=== PATIENT | male | born 1940 | race Caucasian/White ===

== ENCOUNTER 2020-02-06 06:59 | Emergency (ER) | payer MEDICARE, SELFPAY ==
--- NOTE | 2020-02-06 | XR_ITS ---
EXAMINATION: XR FOOT, RIGHT CLINICAL INFORMATION: Pain. Rule out fracture. COMPARISON: None TECHNIQUE: AP, lateral, and oblique views of the right foot. FINDINGS: No fracture or other acute bony abnormality is seen. Evaluation of the toes is somewhat limited because of hammertoe deformities. There is diffuse osteopenia. Severe degenerative changes are present at the first and second metatarsal phalangeal joints. IMPRESSION: No acute abnormality.
[2020-02-06 07:32] VITALS: BP 129/62; PULSE 90; RESP 27; TEMP 36.9; O2SAT 98; BMI 19.6
--- NOTE | 2020-02-06 07:49 | ECG_ITS ---
Test Reason : CHEST PAIN Blood Pressure : / mmHG Vent. Rate : 084 BPM Atrial Rate : 087 BPM P-R Int : 000 ms QRS Dur : 154 ms QT Int : 406 ms P-R-T Axes : 000 267 045 degrees QTc Int : 479 ms Atrial fibrillation Right bundle branch block Possible Lateral infarct , age undetermined Abnormal ECG When compared with ECG of 20-NOV-2019 21:23, Borderline criteria for Lateral infarct are now Present Referred By: Denisse Quinn Electronically Signed By:JOSE MIGUEL PARSONS
--- NOTE | 2020-02-06 07:49 | XR_ITS ---
EXAMINATION: CR CHEST CLINICAL INFORMATION: Shortness of breath. COMPARISON: Multiple prior chest x-rays, most recent of which is dated 12/30/2019. TECHNIQUE: AP portable upright view of the chest was obtained. FINDINGS: Multiple EKG leads overlie the chest. The cardiomediastinal silhouette is within normal limits in size. Calcification of the aortic arch is seen. Again noted is right apical pleural thickening with associated chain links sutures and jesus, consistent with prior partial right upper lobectomy. Lungs are hyperinflated with slight thickening of the airways seen, consistent with obstructive lung disease. No acute superimposed focal pulmonary process is seen. There is partial inclusion of sclerotic density in the proximal left humeral head, possibly due to an old infarct or benign bone lesion, such as an enchondroma. Diffuse osteopenia is seen. IMPRESSION: Obstructive lung disease, chronic right apical postsurgical changes. No acute superimposed focal process.
--- NOTE | 2020-02-06 07:54 | ED.CHESTPAIN ---
HPI - Chest Pain General Chief Complaint: Chest Pain Stated Complaint: cant walk chest pain Time Seen by Provider: 02/06/20 07:44 History of Present Illness HPI narrative: right foot pain for the past 2 Days, patient declined any trauma or injury to the right foot, patient had a history of right foot pain due to gout in the past and was similar to that pain. Related Data Previous Rx's Medication Instructions Recorded prednisone 20 mg PO BID #10 tab 02/06/20 Allergies Allergy/AdvReac Type Severity Reaction Status Date / Time No Known Allergies Allergy Unknown UNKNOWN Unverified 01/20/20 15:06 [NO KNOWN ALLERGIES] Review of Systems Review of Systems: Yes all other systems are reviewed and are negative Constitutional: Constitutional: Reports as per HPI and Reports malaise Eyes: Eyes: Reports as per HPI and Reports no additional eye complaints ENT: Reports Normal hearing present Cardiovascular: Cardiovascular: Reports chest pain and Reports dyspnea Respiratory: Respiratory: Reports dyspnea Gastrointestinal: Gastrointestinal: Reports no additional gastrointestinal complaints Genitourinary: Genitourinary: Reports no additional male genitourinary complaints Musculoskeletal: Musculoskeletal: Reports other Comments: Right foot pain for the past 2 days similar to when he had gout attack in the past. Neurologic: Reports system reviewed and no additional complaints, except as documented and Reports Normal hearing present [facility] Past Medical History Medical History (Updated 02/06/20 @ 15:43 by Denisse Quinn MD) COPD (chronic obstructive pulmonary disease) Hypertension Lung cancer Surgical History (Updated 02/06/20 @ 07:36 by Rajesh Titus) History of lung surgery Social History Social History Alcohol intake: never Smoking Status: Current every day smoker Smoked in Last 30 Days: Yes Use of substances other than those prescribed or required for medical reasons: No Advance Directives: No Advance Directives Information Provided: No Physical Exam Vital Signs and I&O and Narrative: Vital Signs and I&O: Vital Signs Temp 98.5 F 02/06/20 07:32 Pulse 80 02/06/20 10:20 Resp 18 02/06/20 10:20 BP 101/46 L 02/06/20 10:20 Pulse Ox 95 02/06/20 10:20 Intake & Output 02/05/20 02/06/20 02/06/20 18:59 06:59 18:59 Weight 69.539 kg Body Mass Index 19.6 Const: General: cooperative, healthy appearing, alert, awake and Physically active Orientation/consciousness: oriented to person, oriented to place, oriented to time and patient oriented x3 HENMT: Head: Yes normal to inspection and Yes No palpable skull fracture present Eyes: General: appearance normal, both eyes and all related structures Neck: Neck: Yes normal visual inspection Chest: Chest palpation & inspection: normal inspection of the chest and normal palpation of entire chest wall Resp: Effort & Inspection: normal respiratory effort and able to speak in complete sentences Auscultation: clear to auscultation bilaterally Cardio: Rate: regular rate Rhythm: abnormal rhythm irregularly irregular GI: Inspection: Yes normal to inspection : General: Yes no CVA tenderness Back/Spine/Pelvis: Back: no CVA tenderness Skin: General skin exam: no rashes or lesions noted Neuro: General: oriented to person, oriented to place, oriented to time and patient oriented x3 Cranial nerves: Yes CN's II-XII intact bilaterally and Yes Normal hearing present Cognition (Neuro): normal cognition Extrem: General: Yes normal to inspection Right upper extremity: normal to inspection Left upper extremity: normal to inspection Right lower extremity: normal to inspection, full ROM and foot Details: normal capillary refill, normal to inspection, tenderness Location: of the dorsal foot, of the mid foot and of the base of the 5th metatarsal and toes with normal ROM Course Course Hospital Course: 79-year-old male presented with right foot pain for the past 2 days, patient had a gout attack in the past and the pain is similar to the gout arthritis, x-ray of the foot is unremarkable. Patient also is less concerning about chest pain that is mostly mid chest, with no radiation, more less constant, it is not exertional, no associated symptoms with that, patient has unremarkable EKG, and also patient had a negative troponin x2 with 3 hours apart (chest pain started last night greater than 10 hours when patient was 1st seen). Reevaluation(s) Reevaluation #1: Spoke with the daughter over the phone who is concerned that the patient lives home alone with difficulty ambulating and concern to send the patient back home, patient has unremarkable workup in the emergency department, patient was offered to stay in the emergency department for social service liaison evaluation and a rehab placement, but patient declined that and wanted to go home, given the fact that patient do not have a typical exam for gout but patient's symptoms were similar to a previous gout attack that the patient had as discussed with the patient will try the patient on 4 days of prednisone, and if he does not feel improvement he come back to the emergency room for further evaluation and possible appropriate placement for the patient. MDM - Chest Pain Lab Data Result diagrams: 02/06/20 08:22 02/06/20 08:22 Labs: Lab Results 02/06/20 02/06/20 02/06/20 Range/Units 08:21 08:21 08:21 WBC (4.8-10.8) X10*3/uL RBC (4.60-5.80) X10*6/uL Hgb (14.0-18.0) g/dl Hct (42-52) % MCV (80-98) fL MCH (27.0-33.0) pg MCHC (31.0-36.0) g/dl RDW (11.0-16.0) % Plt Count (160-400) X10*3/uL MPV (9.4-12.4) fL Immature Gran % (Auto) (0.0-0.4) % Neut % (Auto) (45-73) % Lymph % (Auto) (20-40) % Villalba % (Auto) (2-11) % Eos % (Auto) (0-4) % Baso % (Auto) (0-2) % Neut # (Auto) (2.0-8.3) X10*3/uL Lymph # (Auto) (1.2-4.9) X10*3/uL Villalba # (Auto) (0.1-1.2) X10*3/uL Eos # (Auto) (0.0-0.4) X10*3/uL Baso # (Auto) (0.0-0.2) X10*3/uL Abs Immat Gran (auto) (0.00-0.03) X10*3/uL Absolute Nucleated RBC (0.0-0.012) X10*3/uL Nucleated RBC % (auto) (0.0-0.2) /100WBC PT 46.7 H (10.8-13.0) SEC INR 3.9 H (0.9-1.1) APTT 55.4 H (24.1-38.0) SEC Hold Blue Top Sodium (135-145) mmol/L Potassium (3.3-5.1) mmol/l Chloride (96-108) mmol/L Carbon Dioxide (22-29) mmol/L Anion Gap (12-20) BUN (9-16) mg/dL Creatinine (0.5-1.4) mg/dL Estim Creat Clear Calc Estimated GFR Random Glucose (60-115) mg/dL Lactic Acid 0.7 (0.5-2.0) mmol/L Calcium (8.4-10.2) mg/dL Total Bilirubin 0.8 (0.0-1.0) mg/dL Troponin I High Sens (<3.5-35.0) ng/L Urine Color Urine Appearance Urine pH (5.0-8.0) Ur Specific Taylor (1.005-1.025) Urine Protein (NEG-TRACE) MG/DL Urine Glucose (UA) (NEG) MG/DL Urine Ketones (NEG) MG/DL Urine Blood (NEG) Urine Nitrite (NEG) Ur Leukocyte Esterase (NEG) Urine RBC (0) /HPF Urine WBC (0-4) /HPF 02/06/20 02/06/20 02/06/20 Range/Units 08:22 08:22 08:22 WBC (4.8-10.8) X10*3/uL RBC (4.60-5.80) X10*6/uL Hgb (14.0-18.0) g/dl Hct (42-52) % MCV (80-98) fL MCH (27.0-33.0) pg MCHC (31.0-36.0) g/dl RDW (11.0-16.0) % Plt Count (160-400) X10*3/uL MPV (9.4-12.4) fL Immature Gran % (Auto) (0.0-0.4) % Neut % (Auto) (45-73) % Lymph % (Auto) (20-40) % Villalba % (Auto) (2-11) % Eos % (Auto) (0-4) % Baso % (Auto) (0-2) % Neut # (Auto) (2.0-8.3) X10*3/uL Lymph # (Auto) (1.2-4.9) X10*3/uL Villalba # (Auto) (0.1-1.2) X10*3/uL Eos # (Auto) (0.0-0.4) X10*3/uL Baso # (Auto) (0.0-0.2) X10*3/uL Abs Immat Gran (auto) (0.00-0.03) X10*3/uL Absolute Nucleated RBC (0.0-0.012) X10*3/uL Nucleated RBC % (auto) (0.0-0.2) /100WBC PT (10.8-13.0) SEC INR (0.9-1.1) APTT (24.1-38.0) SEC Hold Blue Top SEE NOTE Sodium 144 (135-145) mmol/L Potassium 4.2 (3.3-5.1) mmol/l Chloride 101 (96-108) mmol/L Carbon Dioxide 35 H (22-29) mmol/L Anion Gap 12 (12-20) BUN 45 H (9-16) mg/dL Creatinine 1.16 (0.5-1.4) mg/dL Estim Creat Clear Calc 49.9 Estimated GFR > 60 Random Glucose 131 H (60-115) mg/dL Lactic Acid (0.5-2.0) mmol/L Calcium 9.2 (8.4-10.2) mg/dL Total Bilirubin (0.0-1.0) mg/dL Troponin I High Sens 14.9 (<3.5-35.0) ng/L Urine Color Urine Appearance Urine pH (5.0-8.0) Ur Specific Taylor (1.005-1.025) Urine Protein (NEG-TRACE) MG/DL Urine Glucose (UA) (NEG) MG/DL Urine Ketones (NEG) MG/DL Urine Blood (NEG) Urine Nitrite (NEG) Ur Leukocyte Esterase (NEG) Urine RBC (0) /HPF Urine WBC (0-4) /HPF 02/06/20 02/06/20 02/06/20 Range/Units 08:22 08:23 11:28 WBC 6.8 (4.8-10.8) X10*3/uL RBC 4.27 L (4.60-5.80) X10*6/uL Hgb 13.6 L (14.0-18.0) g/dl Hct 41.9 L (42-52) % MCV 98.1 H (80-98) fL MCH 31.9 (27.0-33.0) pg MCHC 32.5 (31.0-36.0) g/dl RDW 16.8 H (11.0-16.0) % Plt Count 154 L (160-400) X10*3/uL MPV 11.4 (9.4-12.4) fL Immature Gran % (Auto) 0.3 (0.0-0.4) % Neut % (Auto) 62.9 (45-73) % Lymph % (Auto) 20.6 (20-40) % Villalba % (Auto) 12.7 H (2-11) % Eos % (Auto) 2.8 (0-4) % Baso % (Auto) 0.7 (0-2) % Neut # (Auto) 4.3 (2.0-8.3) X10*3/uL Lymph # (Auto) 1.4 (1.2-4.9) X10*3/uL Villalba # (Auto) 0.9 (0.1-1.2) X10*3/uL Eos # (Auto) 0.2 (0.0-0.4) X10*3/uL Baso # (Auto) 0.1 (0.0-0.2) X10*3/uL Abs Immat Gran (auto) 0.02 (0.00-0.03) X10*3/uL Absolute Nucleated RBC 0.000 (0.0-0.012) X10*3/uL Nucleated RBC % (auto) 0.0 (0.0-0.2) /100WBC PT (10.8-13.0) SEC INR (0.9-1.1) APTT (24.1-38.0) SEC Hold Blue Top Sodium (135-145) mmol/L Potassium (3.3-5.1) mmol/l Chloride (96-108) mmol/L Carbon Dioxide (22-29) mmol/L Anion Gap (12-20) BUN (9-16) mg/dL Creatinine (0.5-1.4) mg/dL Estim Creat Clear Calc Estimated GFR Random Glucose (60-115) mg/dL Lactic Acid (0.5-2.0) mmol/L Calcium (8.4-10.2) mg/dL Total Bilirubin (0.0-1.0) mg/dL Troponin I High Sens 11.7 (<3.5-35.0) ng/L Urine Color YELLOW Urine Appearance CLEAR Urine pH 6.0 (5.0-8.0) Ur Specific Taylor 1.015 (1.005-1.025) Urine Protein NEG (NEG-TRACE) MG/DL Urine Glucose (UA) NEG (NEG) MG/DL Urine Ketones NEG (NEG) MG/DL Urine Blood TRACE (NEG) Urine Nitrite NEG (NEG) Ur Leukocyte Esterase NEG (NEG) Urine RBC 0-2 (0) /HPF Urine WBC 0 (0-4) /HPF Discharge Plan Discharge Clinical Impression: Atypical chest pain Acute foot pain Qualifiers: Laterality: right Qualified Code(s): M79.671 - Pain in right foot Patient Disposition: Home, Self-Care Instructions: Gout (ED), Noncardiac Chest Pain (ED) Prescriptions: New prednisone 20 mg tablet 20 mg PO BID Qty: 10 RF: 0 Referrals: Ben Durham MD [Primary Care Provider] - 2 days
[2020-02-06 08:32] LABS: MANUAL DIFF FLAG NO
[2020-02-06 08:35] LABS: Basophils Absolute Auto 0.1 X10*3/uL (0.0-0.2); Basophils Percent Auto 0.7 % (0-2); Eosinophils Absolute Auto 0.2 X10*3/uL (0.0-0.4); Eosinophils Percent Auto 2.8 % (0-4); Hematocrit 41.9 % (42-52); Hemoglobin 13.6 g/dl (14.0-18.0); Imm Gran Abs Auto 0.02 X10*3/uL (0.00-0.03); Imm Gran Pct Auto 0.3 % (0.0-0.4); Lymphocytes Absolute Auto 1.4 X10*3/uL (1.2-4.9); Lymphocytes Percent Auto 20.6 % (20-40); Mean Corpuscular HGB Conc 32.5 g/dl (31.0-36.0); Mean Corpuscular Hemoglobin 31.9 pg (27.0-33.0); Mean Corpuscular Volume 98.1 fL (80-98); Mean Platelet Volume 11.4 fL (9.4-12.4); Monocytes Absolute Auto 0.9 X10*3/uL (0.1-1.2); Monocytes Percent Auto 12.7 % (2-11); Neutrophils Absolute Auto 4.3 X10*3/uL (2.0-8.3); Neutrophils Percent Auto 62.9 % (45-73); Platelet Count 154 X10*3/uL (160-400); Red Blood Count 4.27 X10*6/uL (4.60-5.80); Red Cell Distribution Width 16.8 % (11.0-16.0); White Blood Count 6.8 X10*3/uL (4.8-10.8)
[2020-02-06 08:43] LABS: Glucose Urine UA NEG (NEG); Leukocyte Esterase Urine NEG (NEG); Nitrite Urine NEG (NEG); Specific Gravity - Urine 1.015 (1.005-1.025); Urine Blood TRACE (NEG); Urine Ketones NEG (NEG); Urine Protein NEG (NEG-TRACE)
[2020-02-06 08:46] LABS: Appearance Urine CLEAR; Color Urine YELLOW
[2020-02-06 08:53] LABS: Lactic Acid 0.7 mmol/L (0.5-2.0)
[2020-02-06 08:55] LABS: Prothrombin Time 46.7 SEC (10.8-13.0)
[2020-02-06 08:57] LABS: Partial Thromboplastin Time 55.4 SEC (24.1-38.0)
[2020-02-06 09:00] LABS: Troponin-I High Sensitivity 14.9 ng/L (<3.5-35.0)
[2020-02-06 09:01] LABS: RBC Urine 0-2 /HPF (0); WBC Urine 0 /HPF (0-4)
[2020-02-06 09:03] LABS: Bilirubin Total 0.8 mg/dL (0.0-1.0); INTERNATIONAL NORM RATIO 3.9 (0.9-1.1)
[2020-02-06 09:19] LABS: Anion Gap 12 (12-20); Blood Urea Nitrogen 45 mg/dL (9-16); Calcium 9.2 mg/dL (8.4-10.2); Carbon Dioxide 35 mmol/L (22-29); Chloride 101 mmol/L (96-108); Creatinine Clr Calc Pharmacy 49.9; Estimated Glomerular Filt Rate > 60; Glucose Random 131 mg/dL (60-115); Potassium 4.2 mmol/l (3.3-5.1); Sodium 144 mmol/L (135-145)
[2020-02-06 10:20] VITALS: BP 101/46; PULSE 80; RESP 18; O2SAT 95
[2020-02-06 12:11] LABS: Troponin-I High Sensitivity 11.7 ng/L (<3.5-35.0)
[2020-02-06] MEDS: Ibuprofen 800 MG TABLET PO (13:48)
== END 2020-02-06 16:57 | disposition home or self-care (01) ==
PROVIDERS: Emergency Provider Emergency Medicine; PCP Internal Medicine
DX: R07.89 Other chest pain (principal); M79.671 Pain in right foot; I11.0 Hypertensive heart disease with heart failure; I50.9 Heart failure, unspecified; I48.91 Unspecified atrial fibrillation; F17.200 Nicotine dependence, unspecified, uncomplicated; Z85.118 Personal history of other malignant neoplasm of bronchus and lung; Z79.01 Long term (current) use of anticoagulants; Z79.899 Other long term (current) drug therapy
CPT/HCPCS: 36415; 71045; 73630; 80048; 81001; 82247; 83605; 84484; 85025; 85610; 85730; 87040; 87086; 93005; 93010; 99284

== ENCOUNTER → 2020-02-15 08:56 | Outpatient (BNVA) | payer MEDICARE, SELFPAY | PROVIDERS: PCP Internal Medicine; Referring Provider Internal Medicine; Visit Provider Nurse Practitioner Family | DX: I25.10 Atherosclerotic heart disease of native coronary artery without angina pectoris (principal); I11.0 Hypertensive heart disease with heart failure; I50.30 Unspecified diastolic (congestive) heart failure; I48.20 Chronic atrial fibrillation, unspecified; E78.5 Hyperlipidemia, unspecified; F17.200 Nicotine dependence, unspecified, uncomplicated; Z79.01 Long term (current) use of anticoagulants; Z79.899 Other long term (current) drug therapy | CPT/HCPCS: 99214 ==

== ENCOUNTER → 2020-02-17 08:48 | Outpatient (BNVA) | payer MEDICARE, SELFPAY | PROVIDERS: PCP Internal Medicine; Visit Provider Internal Medicine | DX: I48.20 Chronic atrial fibrillation, unspecified (principal); Z51.81 Encounter for therapeutic drug level monitoring; Z79.01 Long term (current) use of anticoagulants | CPT/HCPCS: 85610 ==

== ENCOUNTER → 2020-03-01 09:28 | Outpatient (BNVA) | payer MEDICARE, SELFPAY | PROVIDERS: PCP Internal Medicine; Referring Provider Internal Medicine; Visit Provider Internal Medicine | DX: I48.20 Chronic atrial fibrillation, unspecified (principal); Z51.81 Encounter for therapeutic drug level monitoring; Z79.01 Long term (current) use of anticoagulants | CPT/HCPCS: 85610; 99211 ==

== ENCOUNTER → 2020-03-10 09:33 | Outpatient (BNVA) | payer MEDICARE, SELFPAY | PROVIDERS: PCP Internal Medicine; Referring Provider Internal Medicine; Visit Provider Internal Medicine | DX: I48.20 Chronic atrial fibrillation, unspecified (principal); Z79.01 Long term (current) use of anticoagulants; Z51.81 Encounter for therapeutic drug level monitoring | CPT/HCPCS: 85610; 99211 ==

== ENCOUNTER → 2020-03-24 09:31 | Outpatient (BNVA) | payer MEDICARE, SELFPAY | PROVIDERS: PCP Internal Medicine; Visit Provider Internal Medicine | DX: I48.20 Chronic atrial fibrillation, unspecified (principal); Z51.81 Encounter for therapeutic drug level monitoring; Z79.01 Long term (current) use of anticoagulants | CPT/HCPCS: 85610; 99211 ==

== ENCOUNTER 2020-04-04 09:18 | Outpatient (REF) | payer MEDICARE, SELFPAY ==
--- NOTE | 2020-04-04 09:21 | CT_ITS ---
EXAMINATION: CT CHEST WITHOUT CONTRAST CLINICAL INFORMATION: Primary cancer of the right upper lobe. COMPARISON: Chest 12/30/2019 TECHNIQUE: Multidetector volumetric CT imaging of the chest was done. Axial MIP volume rendering provided. Sagittal and coronal reformatted images were obtained. This CT examination was performed using dose optimization techniques as appropriate, variously including the following: *Automated exposure control *Adjustment of mA and/or kV according to patient size (this includes techniques or standardized protocols for targeted exams where dose is matched to indication/reason for exam; i.e. 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 Large scar in the right upper lobe. LUNGS: Again visualized is centrilobular and paraseptal emphysema. There is large dominant right upper lobe irregular clover-shaped scar extending to the right suprahilar region. The scar measures approximately 2.5 x 2.2 x 2.8 cm. There is stranding extending to the right lung apex posteriorly, anteriorly and to the suprahilar region. The size of the scar has increased since the previous exam 10/16/2019. There is a 2 mm calcified nodule, right upper lobe, subpleural-based image 209/5. There is a 5 mm focal parenchymal thickening or nodule, right upper lobe subpleural-based, axial image 293/5. There are 1 mm subpleural-based calcified nodules in both lower lobes; a 2 mm noncalcified nodule subpleural-based, left lower lobe, axial image 490/5; a 3 mm calcified nodule, subpleural-based right lower lobe, axial image 545/5. There is bilateral apical pleural thickening and parenchymal calcification. Slightly greater on the right. MEDIASTINUM: The thyroid lobes are symmetrical and normal. The central trachea and the bronchi are widely patent. No abnormal size mediastinal or hilar lymph nodes seen. The heart size and the great vessels are normal caliber. There are coronary artery calcifications present. There is no pericardial effusion. PLEURA: There is no pleural effusion. No pleural mass or thickening. AXILLA: No lymphadenopathy. UPPER ABDOMEN: Visualized liver, spleen, pancreas, and bilateral adrenal glands are unremarkable. There are several radiopaque gallstones in a contracted gallbladder. Mild atherosclerotic calcification are seen at the origin of celiac and superior mesenteric artery. OSSEOUS STRUCTURES: No lytic or sclerotic process seen. There are anterior longitudinal ligament calcifications with diffuse osteopenia and mild ventral spondylosis, lower dorsal spine. CT/CT chest wo con IMPRESSION: 1. Centrilobular and paraseptal emphysema. There is a right upper lobe soft tissue mass likely postsurgical or postradiation change which appears clover leaf-shaped at this time. The lesion extends to the pleural surface and inferiorly to the suprahilar region. Growing scar or underlying lesion cannot be excluded. Consider PET/CT if clinically indicated. 2. Several calcified and noncalcified small nodules as described above. 3. No abnormal mediastinal lymph nodes or mass seen. 4. Mild loss of right upper lobe volume with bilateral apical pleural thickening and parenchymal scarring, slightly greater on the right side.
== END 2020-04-04 09:19 | disposition home or self-care (01) ==
LOC: HO.CT 09:18
PROVIDERS: PCP Internal Medicine; Visit Provider Surgery
DX: C34.11 Malignant neoplasm of upper lobe, right bronchus or lung (principal)
CPT/HCPCS: 71250

== ENCOUNTER 2020-04-12 06:51 | Outpatient (REF) | payer MEDICARE, SELFPAY ==
[2020-04-12 11:14] LABS: MANUAL DIFF FLAG NO
[2020-04-12 11:33] LABS: Basophils Percent Auto 0.7 % (0-2); Eosinophils Absolute Auto 0.3 X10*3/uL (0.0-0.4); Hematocrit 38.1 % (42-52); Hemoglobin 12.4 g/dl (14.0-18.0); Imm Gran Abs Auto 0.02 X10*3/uL (0.00-0.03); Imm Gran Pct Auto 0.4 % (0.0-0.4); Lymphocytes Absolute Auto 1.6 X10*3/uL (1.2-4.9); Lymphocytes Percent Auto 27.6 % (20-40); Mean Corpuscular HGB Conc 32.5 g/dl (31.0-36.0); Mean Corpuscular Hemoglobin 33.4 pg (27.0-33.0); Mean Corpuscular Volume 102.7 fL (80-98); Mean Platelet Volume 11.5 fL (9.4-12.4); Monocytes Absolute Auto 0.6 X10*3/uL (0.1-1.2); Monocytes Percent Auto 11.3 % (2-11); Neutrophils Absolute Auto 3.1 X10*3/uL (2.0-8.3); Platelet Count 176 X10*3/uL (160-400); Red Blood Count 3.71 X10*6/uL (4.60-5.80); Red Cell Distribution Width 15.7 % (11.0-16.0); White Blood Count 5.7 X10*3/uL (4.8-10.8)
[2020-04-12 11:44] LABS: B Type Natriuretic Peptide 265 pg/mL (<100)
[2020-04-12 11:57] LABS: Glucose Urine UA NEG (NEG); Leukocyte Esterase Urine NEG (NEG); Nitrite Urine NEG (NEG); PH 5.5 (5.0-8.0); Urine Blood NEG (NEG); Urine Ketones NEG (NEG); Urine Protein NEG (NEG-TRACE)
[2020-04-12 12:02] LABS: Appearance Urine CLEAR; Color Urine YELLOW
[2020-04-12 12:12] LABS: TSH reflex Free T4 1.14 mIU/mL (0.32-4.0); Vitamin D 25-OH Total 35.4 ng/mL (>30)
[2020-04-12 12:13] LABS: Creatinine Urine 75.78 mg/dL; Microalbum/Creatinine Ratio Ur 42.2 ug/mg cr
[2020-04-12 12:15] LABS: Alanine Aminotransferase 16 U/L (0-40); Albumin Level 3.8 g/dL (3.5-5.0); Alkaline Phosphatase 89 U/L (39-117); Anion Gap 11 (12-20); Aspartate Amino Transferase 21 U/L (5-37); Bilirubin Total 0.8 mg/dL (0.0-1.0); Blood Urea Nitrogen 35 mg/dL (9-16); Calcium 8.4 mg/dL (8.4-10.2); Carbon Dioxide 33 mmol/L (22-29); Chloride 103 mmol/L (96-108); Cholesterol 97 mg/dL; Estimated Glomerular Filt Rate > 60; Glucose Fasting 101 mg/dL (60-99); HDL Cholesterol 41 mg/dL; LDL Cholesterol Calculated 45 mg/dl; Potassium 4.3 mmol/l (3.3-5.1); Sodium 143 mmol/L (135-145); Total Protein 6.4 g/dL (6.5-8.0); Triglycerides 57 mg/dL; Uric Acid 9.5 mg/dL (3.4-7.0)
[2020-04-12 12:24] LABS: RBC Urine 0 /HPF (0); Squamous Epithelial Cell Urine TRACE /LPF; WBC Urine 0-2 /HPF (0-4)
== END 2020-04-12 06:52 | disposition home or self-care (01) ==
LOC: HO.HMGCLDS 06:51
PROVIDERS: PCP Internal Medicine; Visit Provider Internal Medicine
DX: E11.29 Type 2 diabetes mellitus with other diabetic kidney complication (principal); E78.5 Hyperlipidemia, unspecified; E55.9 Vitamin D deficiency, unspecified; M10.9 Gout, unspecified; I25.10 Atherosclerotic heart disease of native coronary artery without angina pectoris; I50.30 Unspecified diastolic (congestive) heart failure; R60.0 Localized edema; I48.20 Chronic atrial fibrillation, unspecified
CPT/HCPCS: 36415; 80053; 80061; 81001; 82043; 82306; 83880; 84443; 84550; 85025

== ENCOUNTER → 2020-04-13 09:22 | Outpatient (BNVA) | payer MEDICARE, SELFPAY | PROVIDERS: PCP Internal Medicine; Referring Provider Internal Medicine; Visit Provider Internal Medicine | DX: I48.20 Chronic atrial fibrillation, unspecified (principal); Z51.81 Encounter for therapeutic drug level monitoring; Z79.01 Long term (current) use of anticoagulants | CPT/HCPCS: 85610; 99211 ==

== ENCOUNTER 2020-04-21 09:48 | Outpatient (REF) | payer MEDICARE, SELFPAY ==
--- NOTE | 2020-04-21 | XR_ITS ---
EXAMINATION: XR CHEST CLINICAL INFORMATION: Non-small cell cancer right lung. COMPARISON: CT chest noncontrast 04/04/2020, chest radiographs 02/06/2020, 12/30/2019 TECHNIQUE: The chest is imaged in 2 frontal views and a lateral projection for a total of 3 views. FINDINGS: There are postsurgical changes right upper zone with stable scarring and surgical clips and chain jesus. Smooth right apical pleural thickening stable. Again, there is hyperinflation/COPD. There is no airspace consolidation, groundglass opacity, or effusion. The cardiac and hilar and mediastinal contours and bony structures are stable. Vascularity normal. XR/XR chest 2V IMPRESSION: Stable post surgical changes right hemithorax. No acute intrathoracic disease.
== END 2020-04-21 09:49 | disposition home or self-care (01) ==
LOC: HO.HMGCX 09:48
PROVIDERS: PCP Internal Medicine; Visit Provider Internal Medicine Medical Oncology
DX: C34.91 Malignant neoplasm of unspecified part of right bronchus or lung (principal)
CPT/HCPCS: 71046

== ENCOUNTER → 2020-05-04 09:28 | Outpatient (BNVA) | payer MEDICARE, SELFPAY | PROVIDERS: PCP Internal Medicine; Visit Provider Internal Medicine | DX: I48.20 Chronic atrial fibrillation, unspecified (principal); Z51.81 Encounter for therapeutic drug level monitoring; Z79.01 Long term (current) use of anticoagulants | CPT/HCPCS: 85610; 99211 ==

== ENCOUNTER → 2020-05-09 09:31 | Outpatient (BNVA) | payer MEDICARE, SELFPAY | PROVIDERS: PCP Internal Medicine; Referring Provider Internal Medicine; Visit Provider Internal Medicine Cardiovascular Disease | DX: I50.30 Unspecified diastolic (congestive) heart failure (principal); I11.0 Hypertensive heart disease with heart failure; I48.20 Chronic atrial fibrillation, unspecified | CPT/HCPCS: 99212 ==

== ENCOUNTER 2020-05-12 08:31 | Outpatient (REF) | payer MEDICARE, SELFPAY ==
[2020-05-12 09:45] LABS: Anion Gap 12 (12-20); Blood Urea Nitrogen 39 mg/dL (9-16); Calcium 8.7 mg/dL (8.4-10.2); Carbon Dioxide 32 mmol/L (22-29); Chloride 104 mmol/L (96-108); Estimated Glomerular Filt Rate > 60; Glucose Random 132 mg/dL (60-115); Sodium 144 mmol/L (135-145)
[2020-05-12 09:48] LABS: B Type Natriuretic Peptide 197 pg/mL (<100); Digoxin 0.6 ng/mL (0.8-2.0)
== END 2020-05-12 08:32 | disposition home or self-care (01) ==
LOC: HO.LAB 08:31
PROVIDERS: PCP Internal Medicine; Visit Provider Internal Medicine Cardiovascular Disease
DX: Z85.118 Personal history of other malignant neoplasm of bronchus and lung (principal); J44.9 Chronic obstructive pulmonary disease, unspecified; Z90.2 Acquired absence of lung [part of]; I50.30 Unspecified diastolic (congestive) heart failure; I48.20 Chronic atrial fibrillation, unspecified; Z20.822 Contact with and (suspected) exposure to COVID-19
CPT/HCPCS: 36415; 80048; 80162; 83880; 99215; C9803; U0003

== ENCOUNTER 2020-05-12 10:12 | Outpatient (REF) | payer MEDICARE, SELFPAY | END 2020-05-12 10:13 | disposition home or self-care (01) | LOC: HO.LAB 10:12 | PROVIDERS: Visit Provider Internal Medicine | DX: Z20.822 Contact with and (suspected) exposure to COVID-19 (principal) | CPT/HCPCS: 36415; C9803; U0003 ==

== ENCOUNTER → 2020-05-25 09:14 | Outpatient (BNVA) | payer MEDICARE, SELFPAY | PROVIDERS: PCP Internal Medicine; Visit Provider Internal Medicine | DX: I48.20 Chronic atrial fibrillation, unspecified (principal); Z79.01 Long term (current) use of anticoagulants; Z51.81 Encounter for therapeutic drug level monitoring | CPT/HCPCS: 85610; 99211 ==

== ENCOUNTER 2020-05-26 01:23 | Emergency (ER) | payer MEDICARE, SELFPAY ==
[2020-05-26 01:53] VITALS: BP 162/70; PULSE 77; RESP 18; TEMP 36.9; O2SAT 97; BMI 19.9
--- NOTE | 2020-05-26 02:14 | ED_ITS ---
HPI - General Adult General Chief complaint: Extremity Injury, Lower Stated complaint: FOOT PAIN Time Seen by Provider: 05/26/20 01:42 Source: patient Mode of arrival: ambulatory Limitations: no limitations History of Present Illness HPI narrative: Patient comes emergency room complaining right-sided foot pain. Patient states his big toe is very tender. Patient states that he could not sleep, even that she had of his bed was hurting his toe so much. Patient denies any injury, no fever no chills. Patient states he has had multiple episodes of gout in his life, none recent. Patient denies any changes to his diet or medications. MD complaint: Gout flare Related Data Home Medications Medication Instructions Recorded Confirmed atenolol 50 mg tablet 50 mg PO BID tab 02/15/20 05/12/20 warfarin 1 mg tablet 1 mg PO DAILY tab 03/10/20 05/25/20 Previous Rx's Medication Instructions Recorded potassium chloride 20 mEq 20 meq PO DAILY #90 tab 04/07/20 tablet,extended release(part/cryst) digoxin 125 mcg (0.125 mg) tablet 125 mcg PO DAILY #90 tab 05/09/20 furosemide 40 mg tablet 40 mg PO BID #60 tab 05/09/20 valsartan 40 mg tablet 40 mg PO BID #180 tab 05/09/20 atorvastatin 40 mg tablet 40 mg PO DAILY #90 cap 05/12/20 prednisone 50 mg PO DAILY #5 tab 05/26/20 tramadol 50 mg PO BID PRN #6 tab 05/26/20 Allergies Allergy/AdvReac Type Severity Reaction Status Date / Time No Known Allergies Allergy Unknown UNKNOWN Verified 05/12/20 09:07 [NO KNOWN ALLERGIES] Review of Systems Review of Systems: Constitutional : No Weight loss, No Fever, No Chills, No Night Sweats, No Fatigue, No Malaise ENT/Mouth : No Hearing loss, No Ear Pain, No Nasal Congestion, No Sinus Pain, No Hoarseness, No sore throat, No Rhinorrhea, No Swallowing Difficulty Eyes: No Eye Pain, No Swelling, No Redness, No Foreign Body, No Discharge, No Vision Changes Cardiovascular : No Chest Pain, No SOB, No Dyspnea on Exertion, No Orthopnea, No Edema, No Palpitations Respiratory : No Cough, No Sputum, No Wheezing, No Smoke Exposure, No Dyspnea Gastrointestinal : No Nausea, No Vomiting, No Diarrhea, No Constipation, No abdominal Pain, No Hematochezia, No Melena Genitourinary : no irregular bleeding, No Dysuria, No Urinary Frequency, No Hematuria, No Urinary Incontinence, No Urgency, No Flank Pain, No Urinary Flow Changes, No Hesitancy Musculoskeletal : Complaining of 1st toe pain on the right foot Skin : No Skin Lesions, No rash Neuro : No Weakness, No Numbness, No Paresthesias, No Loss of Consciousness, No Dizziness, No Headache Psych : No Anxiety/Panic, No Depression, No SI/HI/AH/VH, No Social Issues, Heme/Lymph: No Bruising, No Bleeding,No Lymphadenopathy Endocrine : No Polyuria, No Polydipsia, No Temperature Intolerance [facility] Past Medical History Medical History (HFpEF) heart failure with preserved ejection fraction Afib Back pain Benign essential hypertension Bilateral lower extremity edema CAD (coronary artery disease) Chronic atrial fibrillation COPD (chronic obstructive pulmonary disease) Gout History of lung cancer HLD (hyperlipidemia) Hypertension Lumbar degenerative disc disease Lung cancer Osteoarthritis Osteoarthritis of knees, bilateral Pure hypercholesterolemia Smoker Type 2 diabetes mellitus with other diabetic kidney complication Vitamin D deficiency Surgical History History of cardiac cath (~02/2016) History of lung surgery (~2013) History of lung surgery (~10/2019) Family History Family History Mother No problems noted. Social History Social History Alcohol intake: never Smoking Status: Current every day smoker Advance Directives: No Advance Directives Information Provided: No Physical Exam Vital Signs: Vital Signs: Last Vital Signs Temp 98.5 F 05/26/20 01:53 Pulse 77 05/26/20 01:53 Resp 18 05/26/20 01:53 BP 162/70 H 05/26/20 01:53 Pulse Ox 97 05/26/20 01:53 Body Mass Index 19.9 Appearance: Alert. Oriented X3. No acute distress. Eyes: Pupils equal, round and reactive to light. ENT: Pharynx normal. Neck: Normal inspection. Neck supple. No lymph nodes noted. No crepitus CVS: Normal heart rate and rhythm. Pulses normal. Normal S1 and S2 Respiratory: No respiratory distress. Breath sounds normal. No Wheezing. No rales Abdomen: Soft and nontender. No rigidity. No distention. good BS x4 Skin: Skin warm and dry. First toe on the right side is erythematous, very tender to touch, no cuts on the skin Extremities: No lower extremity edema. See above Neuro: Oriented X 3. No motor deficit. No sensory deficit. Moving all extermities. No slurred speech. Course Course Course Narrative: I discussed the physical exam with the patient, patient likely having a gout flare. Patient was medicated with colchicine and oral prednisone. Patient was given colchicine, should have any significant interaction with his Coumadin. No NSAIDs will be given. Labs consistent with a gout flare Medical Decision Making Lab Data Result diagrams: 05/26/20 02:51 05/26/20 02:51 Labs: Lab Results 05/26/20 05/26/20 05/26/20 Range/Units 02:51 02:51 02:51 WBC 7.2 (4.8-10.8) X10*3/uL RBC 3.38 L (4.60-5.80) X10*6/uL Hgb 11.7 L (14.0-18.0) g/dl Hct 35.0 L (42-52) % MCV 103.6 H (80-98) fL MCH 34.6 H (27.0-33.0) pg MCHC 33.4 (31.0-36.0) g/dl RDW 13.7 (11.0-16.0) % Plt Count 145 L (160-400) X10*3/uL MPV 11.1 (9.4-12.4) fL Immature Gran % (Auto) 0.3 (0.0-0.4) % Neut % (Auto) 66.1 (45-73) % Lymph % (Auto) 17.4 L (20-40) % [place] % (Auto) 12.1 H (2-11) % Eos % (Auto) 3.3 (0-4) % Baso % (Auto) 0.8 (0-2) % Lymph # (Auto) 1.3 (1.2-4.9) X10*3/uL [place] # (Auto) 0.9 (0.1-1.2) X10*3/uL Eos # (Auto) 0.2 (0.0-0.4) X10*3/uL Baso # (Auto) 0.1 (0.0-0.2) X10*3/uL Abs Immat Gran (auto) 0.02 (0.00-0.03) X10*3/uL Absolute Neuts (auto) 4.8 (2.0-8.3) X10*3/uL Absolute Nucleated RBC 0.000 (0.0-0.012) X10*3/uL Nucleated RBC % (auto) 0.0 (0.0-0.2) /100WBC ESR 36 H (0-15) MM/HR Sodium 142 (135-145) mmol/L Potassium 4.6 (3.3-5.1) mmol/l Chloride 101 (96-108) mmol/L Carbon Dioxide 29 (22-29) mmol/L Anion Gap 17 (12-20) BUN 35 H (9-16) mg/dL Creatinine 1.29 (0.5-1.4) mg/dL Estim Creat Clear Calc 44.6 Estimated GFR 53 Random Glucose 113 (60-115) mg/dL Uric Acid (3.4-7.0) mg/dL Calcium 8.7 (8.4-10.2) mg/dL 05/26/20 Range/Units 02:51 WBC (4.8-10.8) X10*3/uL RBC (4.60-5.80) X10*6/uL Hgb (14.0-18.0) g/dl Hct (42-52) % MCV (80-98) fL MCH (27.0-33.0) pg MCHC (31.0-36.0) g/dl RDW (11.0-16.0) % Plt Count (160-400) X10*3/uL MPV (9.4-12.4) fL Immature Gran % (Auto) (0.0-0.4) % Neut % (Auto) (45-73) % Lymph % (Auto) (20-40) % [place] % (Auto) (2-11) % Eos % (Auto) (0-4) % Baso % (Auto) (0-2) % Lymph # (Auto) (1.2-4.9) X10*3/uL [place] # (Auto) (0.1-1.2) X10*3/uL Eos # (Auto) (0.0-0.4) X10*3/uL Baso # (Auto) (0.0-0.2) X10*3/uL Abs Immat Gran (auto) (0.00-0.03) X10*3/uL Absolute Neuts (auto) (2.0-8.3) X10*3/uL Absolute Nucleated RBC (0.0-0.012) X10*3/uL Nucleated RBC % (auto) (0.0-0.2) /100WBC ESR (0-15) MM/HR Sodium (135-145) mmol/L Potassium (3.3-5.1) mmol/l Chloride (96-108) mmol/L Carbon Dioxide (22-29) mmol/L Anion Gap (12-20) BUN (9-16) mg/dL Creatinine (0.5-1.4) mg/dL Estim Creat Clear Calc Estimated GFR Random Glucose (60-115) mg/dL Uric Acid 9.4 H (3.4-7.0) mg/dL Calcium (8.4-10.2) mg/dL Discharge Plan Discharge Clinical Impression: Gout Qualifiers: Gout site: foot Gout etiology: unspecified cause Chronicity: acute Laterality: right Qualified Code(s): M10.9 - Gout, unspecified Patient Disposition: Home, Self-Care Instructions: Gout (ED) Additional Instructions: Please follow-up with your primary care physician tomorrow. If you have any worsening or new symptoms, please return to the emergency room or call 911 Prescriptions: New prednisone 50 mg tablet 50 mg PO DAILY Qty: 5 RF: 0 tramadol 50 mg tablet 50 mg PO BID PRN (Reason: pain) Qty: 6 RF: 0 No Action potassium chloride 20 mEq tablet,ER particles/crystals 20 meq PO DAILY Qty: 90 RF: 1 atorvastatin 40 mg tablet 40 mg PO DAILY Qty: 90 RF: 3 atenolol 50 mg tablet 50 mg PO BID RF: 0 warfarin 1 mg tablet 1 mg PO DAILY RF: 0 digoxin 125 mcg (0.125 mg) tablet 125 mcg PO DAILY Qty: 90 RF: 1 valsartan 40 mg tablet 40 mg PO BID Qty: 180 RF: 1 furosemide [Lasix] 40 mg tablet 40 mg PO BID Qty: 60 RF: 0
[2020-05-26 03:00] LABS: Basophils Absolute Auto 0.1 X10*3/uL (0.0-0.2); Basophils Percent Auto 0.8 % (0-2); Eosinophils Absolute Auto 0.2 X10*3/uL (0.0-0.4); Eosinophils Percent Auto 3.3 % (0-4); Hemoglobin 11.7 g/dl (14.0-18.0); Imm Gran Abs Auto 0.02 X10*3/uL (0.00-0.03); Imm Gran Pct Auto 0.3 % (0.0-0.4); Lymphocytes Absolute Auto 1.3 X10*3/uL (1.2-4.9); Lymphocytes Percent Auto 17.4 % (20-40); MANUAL DIFF FLAG NO; Mean Corpuscular HGB Conc 33.4 g/dl (31.0-36.0); Mean Corpuscular Hemoglobin 34.6 pg (27.0-33.0); Mean Corpuscular Volume 103.6 fL (80-98); Mean Platelet Volume 11.1 fL (9.4-12.4); Monocytes Absolute Auto 0.9 X10*3/uL (0.1-1.2); Monocytes Percent Auto 12.1 % (2-11); Neutrophils Absolute Auto 4.8 X10*3/uL (2.0-8.3); Neutrophils Percent Auto 66.1 % (45-73); Platelet Count 145 X10*3/uL (160-400); Red Blood Count 3.38 X10*6/uL (4.60-5.80); Red Cell Distribution Width 13.7 % (11.0-16.0); White Blood Count 7.2 X10*3/uL (4.8-10.8)
[2020-05-26 03:34] LABS: Erythrocyte Sedimentation Rate 36 MM/HR (0-15)
[2020-05-26 03:45] LABS: Anion Gap 17 (12-20); Blood Urea Nitrogen 35 mg/dL (9-16); Calcium 8.7 mg/dL (8.4-10.2); Carbon Dioxide 29 mmol/L (22-29); Chloride 101 mmol/L (96-108); Creatinine Clr Calc Pharmacy 44.6; Estimated Glomerular Filt Rate 53; Glucose Random 113 mg/dL (60-115); Potassium 4.6 mmol/l (3.3-5.1); Sodium 142 mmol/L (135-145)
[2020-05-26 03:46] LABS: Uric Acid 9.4 mg/dL (3.4-7.0)
[2020-05-26] MEDS: Colchicine 0.6 MG TABLET 1.2 MG PO (05:51)
[2020-05-26] MEDS: predniSONE 20 MG TABLET 60 MG PO (05:51)
[2020-05-26 05:56] VITALS: BP 140/61; PULSE 81; RESP 16; TEMP 36.8; O2SAT 95
== END 2020-05-26 06:17 | disposition home or self-care (01) ==
PROVIDERS: Emergency Provider Emergency Medicine; PCP Internal Medicine
DX: M10.9 Gout, unspecified (principal); M79.671 Pain in right foot; I10 Essential (primary) hypertension; I48.91 Unspecified atrial fibrillation
CPT/HCPCS: 36415; 80048; 84550; 85025; 85652; 99283; 99284

== ENCOUNTER 2020-05-29 09:25 | Outpatient (REF) | payer MEDICARE, SELFPAY ==
[2020-05-29 11:54] LABS: Erythrocyte Sedimentation Rate 30 MM/HR (0-15)
[2020-05-29 11:56] LABS: Uric Acid 10.1 mg/dL (3.4-7.0)
== END 2020-05-29 09:26 | disposition home or self-care (01) ==
LOC: HO.HMGCLDS 09:25
PROVIDERS: PCP Internal Medicine; Visit Provider Podiatrist
DX: R79.89 Other specified abnormal findings of blood chemistry (principal); M10.072 Idiopathic gout, left ankle and foot
CPT/HCPCS: 36415; 84550; 85652

== ENCOUNTER → 2020-05-30 10:38 | Outpatient (BNVA) | payer MEDICARE, SELFPAY | PROVIDERS: PCP Internal Medicine; Visit Provider Internal Medicine | DX: I48.20 Chronic atrial fibrillation, unspecified (principal); Z51.81 Encounter for therapeutic drug level monitoring; Z79.01 Long term (current) use of anticoagulants | CPT/HCPCS: 85610; 99211 ==

== ENCOUNTER → 2020-06-01 11:47 | Outpatient (BNVA) | payer MEDICARE, SELFPAY | PROVIDERS: PCP Internal Medicine; Visit Provider Dietitian, Registered ==

== ENCOUNTER → 2020-06-09 09:35 | Outpatient (BNVA) | payer MEDICARE, SELFPAY | PROVIDERS: PCP Internal Medicine; Visit Provider Internal Medicine | DX: I48.20 Chronic atrial fibrillation, unspecified (principal); Z51.81 Encounter for therapeutic drug level monitoring; Z79.01 Long term (current) use of anticoagulants | CPT/HCPCS: 85610; 99211 ==

== ENCOUNTER → 2020-06-22 08:55 | Outpatient (BNVA) | payer MEDICARE, SELFPAY | PROVIDERS: PCP Internal Medicine; Visit Provider Internal Medicine | DX: I48.20 Chronic atrial fibrillation, unspecified (principal); Z51.81 Encounter for therapeutic drug level monitoring; Z79.01 Long term (current) use of anticoagulants | CPT/HCPCS: 85610; 99211 ==

== ENCOUNTER 2020-06-28 11:09 | Outpatient (REF) | payer MEDICARE, SELFPAY ==
[2020-06-28 14:49] LABS: Uric Acid 6.1 mg/dL (3.4-7.0)
[2020-06-28 14:50] LABS: Erythrocyte Sedimentation Rate 32 MM/HR (0-15)
== END 2020-06-28 11:10 | disposition home or self-care (01) ==
LOC: HO.HMGCLDS 11:09
PROVIDERS: PCP Internal Medicine; Visit Provider Podiatrist
DX: M10.9 Gout, unspecified (principal)
CPT/HCPCS: 36415; 84550; 85652

== ENCOUNTER 2020-07-10 09:26 | Inpatient (IN) | payer MEDICARE, SELFPAY ==
[2020-07-10] VITALS (13 sets, daily range): BP systolic 101–131; BP diastolic 51–67; PULSE 45–92; RESP 14–20; TEMP 36.1–37; O2SAT 95–97; BMI 19.5
--- NOTE | ~2020-07-10 | CT_ITS ---
EXAMINATION: CT HEAD WITHOUT CONTRAST CLINICAL INFORMATION: Off balance for 2 days. COMPARISON: 12/25/2018 TECHNIQUE: Contiguous axial imaging was performed from the skull base to vertex without intravenous contrast. This CT examination was performed using dose optimization techniques as appropriate, variously including the following: * Automated exposure control * Adjustment of mA and/or kV according to patient size (this includes techniques or standardized protocols for targeted exams where dose is matched to indication/reason for exam; i.e. extremities or head) Use of iterative reconstruction technique DLP: 806 mGy-cm. FINDINGS: Right MCA aneurysm clip again noted. Artifact from the clip limits evaluation in this region. There is no evidence of acute intracranial hemorrhage or territorial infarction. No abnormal mass effect or midline shift is seen. Schroeder to white matter differentiation is well preserved. No extra-axial fluid collections are identified. No hydrocephalus. Proportional prominence of the ventricles and sulcal spaces is consistent with mild volume loss. Patchy periventricular and deep white matter hypoattenuation is consistent with mild small vessel ischemic changes. No acute osseous or soft tissue abnormality. Prior right temporal craniotomy. Small mucus retention cyst in the left maxillary sinus. The mastoid air cells and visualized portions of the paranasal sinuses are otherwise well aerated. CT/CT head/brain wo con IMPRESSION: No acute intracranial pathology. Multiple chronic changes.
--- NOTE | ~2020-07-10 | MR_ITS ---
EXAMINATION: MR BRAIN WITHOUT CONTRAST CLINICAL INFORMATION: Off balance and unsteady gait. COMPARISON: Head CT scans from 07/10/2020 and 12/25/2018. TECHNIQUE: Multiplanar, multisequence imaging of the brain was performed without contrast. Limited study due to susceptibility artifacts in the right frontotemporal region. FINDINGS: The patient is status post a previous right temporal craniotomy and clipping of a right MCA aneurysm resulting in susceptibility artifacts which somewhat limit assessment overlying the right sylvian fissure. A 3 x 3 cm region of sclerotic marrow signal abnormality in the anterior right frontal calvarium is also seen on CT imaging dating back to 12/25/2018. No diffusion abnormalities are identified to suggest an acute or subacute infarct. No mass effect or midline shift is seen. [id number] chronic white matter microangiopathic changes noted with generalized parenchymal volume loss. No evidence of hydrocephalus. No extra-axial fluid collections are seen. The brainstem and cerebellum are normal. Small chronic microhemorrhage noted in the left temporal white matter posteriorly. The craniovertebral junction and midline structures are normal. The major intracranial flow voids at the level of the [place] of [place] are preserved. The dural venous sinus flow voids are maintained. The mastoid air cells and paranasal sinuses are fairly well aerated. MR/MR head/brain wo con IMPRESSION: No acute intracranial process, status post previous right MCA aneurysm clipping with chronic postsurgical changes. Aneurysm clip artifacts obscured the right frontotemporal opercular regions. Yepi-[id number]-lcmyntii chronic white matter microangiopathy and generalized parenchymal volume loss. Stable 3 x 3 cm region of sclerotic marrow signal abnormality in the anterior right frontal calvarium, also seen on prior CT imaging which is nonspecific.
--- NOTE | ~2020-07-10 | XR_ITS ---
EXAMINATION: XR CHEST CLINICAL INFORMATION: Off balance. COMPARISON: No priors, most recently 04/21/2020 TECHNIQUE: Frontal view of the chest was obtained. FINDINGS: Cardiac leads overlie the chest. There is known emphysema. Increased faint patchy opacification of the right lung and at the left base. No pleural effusion or pneumothorax. Surgical clips are seen at the right apex in an area of opacification which is unchanged. The cardiomediastinal silhouette is unchanged. There is no acute osseous abnormality. Area of sclerosis in the proximal left humerus is unchanged, possibly bone infarct or enchondroma. XR/XR chest 1V IMPRESSION: Known emphysema. Increased faint patchy opacities of the right lung and left base could be infectious or inflammatory. This may also be atelectatic.
--- NOTE | ~2020-07-10 | CT_ITS ---
EXAMINATION: CT CHEST WITHOUT CONTRAST CLINICAL INFORMATION: Off balance for 2 days. Chest radiograph demonstrates increased opacities right lung and left base, possibly infectious or inflammatory or atelectatic. History lung cancer. COMPARISON: Chest radiograph 07/10/2020, 02/06/2020, CT chest 04/04/2020 TECHNIQUE: Multidetector volumetric CT imaging of the chest was done. Axial MIP volume rendering provided. Sagittal and coronal reformatted images were obtained. No intravenous contrast. This CT examination was performed using dose optimization techniques as appropriate, variously including the following: *Automated exposure control *Adjustment of mA and/or kV according to patient size (this includes techniques or standardized protocols for targeted exams where dose is matched to indication/reason for exam; i.e. extremities or head) *Use of iterative reconstruction technique DLP: 273 mGy-cm FINDINGS: LUNGS: The central airways are clear and there is no endobronchial lesion or bronchiectasis. There is no lobar segmental airspace consolidation or groundglass opacity to suggest acute infectious or inflammatory disease. Again, there are emphysematous changes greatest in the upper zones with cystic change and hyperinflation. Scattered tiny nodularity, some calcified granulomata are again noted as previously described. Again, there are post therapy changes anterior apical right upper lobe with associated bulky benign calcification. There is a smooth macrolobulated nodule medial side of scar slightly increased in size, currently measuring 1.4 x 1.0 x 1.4 cm, compared with prior measurements 1.2 x 0.8 x 1.1 cm. MEDIASTINUM: There is no interval hilar or mediastinal mass or adenopathy. Prominent precarinal node 1.1 cm is stable to borderline decreased. Thoracic aorta is within limits of normal size. No pericardial effusion. PLEURA: No pleural thickening or effusion. No pneumothorax. AXILLA: No lymphadenopathy. UPPER ABDOMEN: Gravel-like calculi dependent gallbladder versus hyper dense layering sludge. No biliary ductal dilatation. No gallbladder wall thickening. OSSEOUS STRUCTURES: No acute bony abnormality. CT/CT chest wo con IMPRESSION: 1. No lobar or segmental airspace consolidation, groundglass opacity, or effusion. No visible acute inflammatory or infectious abnormality. 2. Post therapy change able: Right upper lobe with smooth macrolobulated nodule slightly increased in size since prior CT 04/04/2020. This could be further assessed with PET/CT. Otherwise, recommend follow-up CT in 3 months for change.
--- NOTE | 2020-07-10 10:36 | ECG_ITS ---
Test Reason : DIZZYNESS Blood Pressure : / mmHG Vent. Rate : 062 BPM Atrial Rate : 187 BPM P-R Int : 000 ms QRS Dur : 160 ms QT Int : 416 ms P-R-T Axes : 000 268 034 degrees QTc Int : 422 ms Atrial fibrillation Right bundle branch block Abnormal ECG When compared with ECG of 06-FEB-2020 07:10, Borderline criteria for Lateral infarct are no longer Present QT has shortened Referred By: Sravani Byers Electronically Signed By:Nick Ramesh
[2020-07-10 11:23] LABS: MANUAL DIFF FLAG NO
[2020-07-10 11:31] LABS: Prothrombin Time 73.3 SEC (10.8-13.0)
[2020-07-10 11:32] LABS: Basophils Percent Auto 0.1 % (0-2); Eosinophils Absolute Auto 0.2 X10*3/uL (0.0-0.4); Eosinophils Percent Auto 2.2 % (0-4); Hematocrit 40.5 % (42-52); Hemoglobin 13.4 g/dl (14.0-18.0); Imm Gran Abs Auto 0.05 X10*3/uL (0.00-0.03); Imm Gran Pct Auto 0.6 % (0.0-0.4); Lymphocytes Absolute Auto 1.5 X10*3/uL (1.2-4.9); Lymphocytes Percent Auto 18.7 % (20-40); Mean Corpuscular HGB Conc 33.1 g/dl (31.0-36.0); Mean Corpuscular Hemoglobin 33.8 pg (27.0-33.0); Mean Platelet Volume 11.6 fL (9.4-12.4); Monocytes Absolute Auto 0.8 X10*3/uL (0.1-1.2); Monocytes Percent Auto 9.2 % (2-11); Neutrophils Absolute Auto 5.7 X10*3/uL (2.0-8.3); Neutrophils Percent Auto 69.2 % (45-73); Platelet Count 144 X10*3/uL (160-400); Red Blood Count 3.97 X10*6/uL (4.60-5.80); Red Cell Distribution Width 13.8 % (11.0-16.0); White Blood Count 8.2 X10*3/uL (4.8-10.8)
--- NOTE | 2020-07-10 11:32 | ED_ITS ---
HPI - Dizziness General Chief Complaint: Dizziness Stated Complaint: dizziness Time Seen by Provider: 07/10/20 10:24 Source: EMS Mode of arrival: EMS History of Present Illness HPI Narrative: 80-year-old male with a past medical history of heart failure, AFib on digoxin and Coumadin, HTN, CAD, COPD, gout, lung CA s/p resection, hyperlipidemia, OA, DM, presenting to the ED complaining of feeling off balance/unsteady on his feet x2 days. Reports feels uncomfortable ambulating, at baseline uses cane or walker at home, lives at home alone, cares for self. Reports mild cough. Denies focal weakness, headache, vision changes, nausea, vomiting, numbness, tingling, CP, SOB, fever, abdominal pain, fall/head trauma. Related Data Home Medications Medication Instructions Recorded Confirmed atenolol 50 mg tablet 50 mg PO BID tab 02/15/20 07/10/20 warfarin 1 mg tablet 1 mg PO SUWE@1800 tab 03/10/20 07/10/20 atorvastatin 40 mg PO BEDTIME 07/10/20 07/10/20 calcium carbonate-vitamin D3 1 tab PO DAILY 07/10/20 07/10/20 [Calcium + D] folic acid 1 mg PO DAILY 07/10/20 07/10/20 multivitamin 1 tab PO DAILY 07/10/20 07/10/20 nicotine 1 patch TRANSDERMAL DAILY 07/10/20 07/10/20 vitamins A,[id number] 1 cap PO DAILY 07/10/20 07/10/20 [PreserVision AREDS] warfarin 2 mg PO MOTUTHFRSA@1800 07/10/20 07/10/20 Previous Rx's Medication Instructions Recorded potassium chloride 20 mEq 20 meq PO DAILY #90 tab 04/07/20 tablet,extended release(part/cryst) digoxin 125 mcg (0.125 mg) tablet 125 mcg PO DAILY #90 tab 05/09/20 furosemide 40 mg tablet 40 mg PO BID #60 tab 05/09/20 valsartan 40 mg tablet 40 mg PO BID #180 tab 05/09/20 prednisone 50 mg PO DAILY #5 tab 05/26/20 tramadol 50 mg PO BID PRN #6 tab 05/26/20 febuxostat 40 mg tablet 40 mg PO DAILY 30 Days #30 tab 05/31/20 Allergies Allergy/AdvReac Type Severity Reaction Status Date / Time No Known Allergies Allergy Unknown UNKNOWN Verified 06/09/20 09:56 [NO KNOWN ALLERGIES] Review of Systems Review of Systems: Constitutional: No Fever, No Chills, No Fatigue, No Malaise Cardiovascular: No Chest Pain, No SOB, No Edema, No Palpitations Respiratory: No Cough, No Dyspnea Gastrointestinal: No Nausea, No Vomiting, No Diarrhea, No Abdominal pain, No Hematochezia, No Melena Genitourinary: No Dysuria, No Urinary Frequency, No Hematuria Musculoskeletal: No joint pain, No Myalgias, No Joint Swelling Skin: No Skin Lesions, No rash Neuro: No Weakness, No Numbness, No Paresthesias, +off balance, No Headache Yes all other systems are reviewed and are negative Neurologic: Denies Abnormal speech present [facility] Past Medical History Attestation statement: The following information was validated with the patient. Medical History (HFpEF) heart failure with preserved ejection fraction Afib Back pain Benign essential hypertension Bilateral lower extremity edema CAD (coronary artery disease) Chronic atrial fibrillation COPD (chronic obstructive pulmonary disease) Gout History of lung cancer HLD (hyperlipidemia) Hypertension Lumbar degenerative disc disease Lung cancer Osteoarthritis Osteoarthritis of knees, bilateral Pure hypercholesterolemia Smoker Type 2 diabetes mellitus with other diabetic kidney complication Vitamin D deficiency Surgical History History of cardiac cath (~02/2016) History of lung surgery (~2013) History of lung surgery (~10/2019) Family History Family History Mother No problems noted. Social History Social History Alcohol intake: never Smoking Status: Current every day smoker Use of substances other than those prescribed or required for medical reasons: No Advance Directives: No Advance Directives Information Provided: No Physical Exam Vital Signs: Vital Signs: Last Vital Signs Temp 97.0 F 07/10/20 09:32 Pulse 84 07/10/20 16:30 Resp 14 07/10/20 16:30 BP 119/56 L 07/10/20 16:30 Pulse Ox 95 07/10/20 16:30 Body Mass Index 19.5 Const: General: cooperative, healthy appearing, comfortable and no acute distress Orientation/consciousness: patient oriented x3 Limitations: no limitations HENMT: Head: Yes normal to inspection and Yes atraumatic Ears: hearing grossly normal bilaterally General nose exam: Normal external nose present Face and sinus: Yes normal facial exam Eyes: General: appearance normal, both eyes and all related structures Pupils: Equal, round and reactive pupils present EOM: EOMs intact bilaterally Neck: Neck: Yes normal visual inspection and Yes no meningeal signs Resp: Effort & Inspection: normal respiratory effort Auscultation: clear to auscultation bilaterally and rhonchi right lower Cardio: Rate: regular rate Heart sounds: S1 normal heart sound present and S2 normal heart sound present GI: Inspection: Yes normal to inspection Palpation (GI): Soft to palpation, nontender, no guarding and not rigid Skin: Rashes: no rashes Wounds: no wounds Neuro: General: patient oriented x3, No gait normal, tone normal, moves all extremities, no meningeal signs, no focal motor deficits and CN's II-XI intact bilaterally Cranial nerves: Yes Equal, round and reactive pupils present Cognition (Neuro): normal cognition Speech: No Abnormal speech present Gait exam (Neuro): gait abnormal, not ataxic and Shuffling gait present (Unsteady gait) Motor exam (neuro): 5/5 motor strength present throughout, Pronator motor function not present and no tremor noted Coordination: [id number] test normal and Romberg test negative Extrem: General: Yes normal to inspection and Yes no pedal edema Course Course Course Narrative: CT head/brain wo con IMPRESSION: No acute intracranial pathology. Multiple chronic changes XR chest 1V IMPRESSION: Known emphysema. Increased faint patchy opacities of the right lung and left base could be infectious or inflammatory. This may also be atelectatic. >> will obtain dry chest CT to further eval -no leukocytosis. H&H stable. INR elevated at 6.1 >> no evidence of active bleeding. Patient denies hematochezia, melena, hematuria, hematemesis. Will hold Coumadin. Last dose Coumadin yesterday at 3:00 p.m. -UA negative CT chest wo con IMPRESSION: 1. No lobar or segmental airspace consolidation, groundglass opacity, or effusion. No visible acute inflammatory or infectious abnormality. 2. Post therapy change able: Right upper lobe with smooth macrolobulated nodule slightly increased in size since prior CT 04/04/2020. This could be further assessed with PET/CT. Otherwise, recommend follow-up CT in 3 months for change -COVID-19/influenza/RSV negative -case discussed with hospitalist who would like us to obtain MRI. Will admit for further management MDM - Dizziness MDM Narrative Medical decision making narrative: 80-year-old male with a past medical history of heart failure, AFib on digoxin and Coumadin, HTN, CAD, COPD, gout, lung CA s/p resection, hyperlipidemia, OA, DM, presenting to the ED complaining of feeli ng off balance/unsteady on his feet x2 days. On exam VSS, NAD/well-appearing, unsteady/shuffling gait noted otherwise no focal deficits. Concern for subacute posterior CVA vs metabolic abnormalities. Rule out infectious etiology Plan: EKG, labs, UA, head CT, reassess Medical Records Attestation: I reviewed the patient's medical records. Lab Data Attestation: I reviewed the patient's lab results. Result diagrams: 07/10/20 11:04 07/10/20 11:06 Labs: Lab Results 07/10/20 07/10/20 07/10/20 Range/Units 11:04 11:04 11:05 WBC 8.2 (4.8-10.8) X10*3/uL RBC 3.97 L (4.60-5.80) X10*6/uL Hgb 13.4 L (14.0-18.0) g/dl Hct 40.5 L (42-52) % MCV 102.0 H (80-98) fL MCH 33.8 H (27.0-33.0) pg MCHC 33.1 (31.0-36.0) g/dl RDW 13.8 (11.0-16.0) % Plt Count 144 L (160-400) X10*3/uL MPV 11.6 (9.4-12.4) fL Immature Gran % (Auto) 0.6 H (0.0-0.4) % Neut % (Auto) 69.2 (45-73) % Lymph % (Auto) 18.7 L (20-40) % [place] % (Auto) 9.2 (2-11) % Eos % (Auto) 2.2 (0-4) % Baso % (Auto) 0.1 (0-2) % Lymph # (Auto) 1.5 (1.2-4.9) X10*3/uL [place] # (Auto) 0.8 (0.1-1.2) X10*3/uL Eos # (Auto) 0.2 (0.0-0.4) X10*3/uL Baso # (Auto) 0.0 (0.0-0.2) X10*3/uL Abs Immat Gran (auto) 0.05 H (0.00-0.03) X10*3/uL Absolute Neuts (auto) 5.7 (2.0-8.3) X10*3/uL Absolute Nucleated RBC 0.000 (0.0-0.012) X10*3/uL Nucleated RBC % (auto) 0.0 (0.0-0.2) /100WBC PT (10.8-13.0) SEC INR (0.9-1.1) APTT (24.1-38.0) SEC Sodium (135-145) mmol/L Potassium (3.3-5.1) mmol/L Chloride (96-108) mmol/L Carbon Dioxide (22-29) mmol/L Anion Gap (12-20) BUN (9-16) mg/dL Creatinine (0.5-1.4) mg/dL Estim Creat Clear Calc Estimated GFR Random Glucose (60-115) mg/dL Calcium (8.4-10.2) mg/dL Magnesium (1.6-2.6) mg/dL Total Bilirubin (0.0-1.0) mg/dL Direct Bilirubin (0.0-0.5) mg/dL AST (5-37) U/L ALT (0-40) U/L Alkaline Phosphatase (39-117) U/L Troponin I High Sens 12.5 (<3.5-35.0) ng/L B-Natriuretic Peptide 158 H (<100) pg/mL Total Protein (6.5-8.0) g/dL Albumin (3.5-5.0) g/dL Urine Color Urine Appearance Urine pH (5.0-8.0) Ur Specific [place] (1.005-1.025) Urine Protein (NEG-TRACE) MG/DL Urine Glucose (UA) (NEG) MG/DL Urine Ketones (NEG) MG/DL Urine Blood (NEG) Urine Nitrite (NEG) Ur Leukocyte Esterase (NEG) Coronavirus (PCR) NEGATIVE (Negative) Influenza Type A (PCR) NEGATIVE (Negative) Influenza Type B (PCR) NEGATIVE (Negative) RSV RNA Qual (PCR) NEGATIVE (Negative) 07/10/20 07/10/20 07/10/20 Range/Units 11:06 11:06 12:10 WBC (4.8-10.8) X10*3/uL RBC (4.60-5.80) X10*6/uL Hgb (14.0-18.0) g/dl Hct (42-52) % MCV (80-98) fL MCH (27.0-33.0) pg MCHC (31.0-36.0) g/dl RDW (11.0-16.0) % Plt Count (160-400) X10*3/uL MPV (9.4-12.4) fL Immature Gran % (Auto) (0.0-0.4) % Neut % (Auto) (45-73) % Lymph % (Auto) (20-40) % [place] % (Auto) (2-11) % Eos % (Auto) (0-4) % Baso % (Auto) (0-2) % Lymph # (Auto) (1.2-4.9) X10*3/uL [place] # (Auto) (0.1-1.2) X10*3/uL Eos # (Auto) (0.0-0.4) X10*3/uL Baso # (Auto) (0.0-0.2) X10*3/uL Abs Immat Gran (auto) (0.00-0.03) X10*3/uL Absolute Neuts (auto) (2.0-8.3) X10*3/uL Absolute Nucleated RBC (0.0-0.012) X10*3/uL Nucleated RBC % (auto) (0.0-0.2) /100WBC PT 73.3 H D (10.8-13.0) SEC INR 6.1 H* D (0.9-1.1) APTT 43.6 H D (24.1-38.0) SEC Sodium 145 (135-145) mmol/L Potassium 4.1 (3.3-5.1) mmol/L Chloride 101 (96-108) mmol/L Carbon Dioxide 38 H (22-29) mmol/L Anion Gap 10 L (12-20) BUN 49 H (9-16) mg/dL Creatinine 1.23 (0.5-1.4) mg/dL Estim Creat Clear Calc 45.9 Estimated GFR 56 Random Glucose 101 (60-115) mg/dL Calcium 8.9 (8.4-10.2) mg/dL Magnesium 2.3 (1.6-2.6) mg/dL Total Bilirubin 0.5 (0.0-1.0) mg/dL Direct Bilirubin 0.3 (0.0-0.5) mg/dL AST 18 (5-37) U/L ALT 18 (0-40) U/L Alkaline Phosphatase 83 (39-117) U/L Troponin I High Sens (<3.5-35.0) ng/L B-Natriuretic Peptide (<100) pg/mL Total Protein 6.3 L (6.5-8.0) g/dL Albumin 3.7 (3.5-5.0) g/dL Urine Color YELLOW Urine Appearance CLEAR Urine pH 5.5 (5.0-8.0) Ur Specific [place] 1.015 (1.005-1.025) Urine Protein NEG (NEG-TRACE) MG/DL Urine Glucose (UA) NEG (NEG) MG/DL Urine Ketones NEG (NEG) MG/DL Urine Blood NEG (NEG) Urine Nitrite NEG (NEG) Ur Leukocyte Esterase NEG (NEG) Coronavirus (PCR) (Negative) Influenza Type A (PCR) (Negative) Influenza Type B (PCR) (Negative) RSV RNA Qual (PCR) (Negative) ECG Data Attestation: I personally reviewed and interpreted this ECG as follows: ECG interpretation date: 07/10/20 ECG interpretation time: 11:07 Interpretation: EKG with AFib. Rate of 62. Right bundle-branch block. No STEMI Discharge Plan Discharge Clinical Impression: Dizziness
[2020-07-10 11:34] LABS: Partial Thromboplastin Time 43.6 SEC (24.1-38.0)
[2020-07-10 11:38] LABS: INTERNATIONAL NORM RATIO 6.1 (0.9-1.1)
[2020-07-10 11:58] LABS: Alanine Aminotransferase 18 U/L (0-40); Albumin Level 3.7 g/dL (3.5-5.0); Alkaline Phosphatase 83 U/L (39-117); Anion Gap 10 (12-20); Aspartate Amino Transferase 18 U/L (5-37); Bilirubin Direct 0.3 mg/dL (0.0-0.5); Bilirubin Total 0.5 mg/dL (0.0-1.0); Blood Urea Nitrogen 49 mg/dL (9-16); Calcium 8.9 mg/dL (8.4-10.2); Carbon Dioxide 38 mmol/L (22-29); Chloride 101 mmol/L (96-108); Creatinine Clr Calc Pharmacy 45.9; Estimated Glomerular Filt Rate 56; Glucose Random 101 mg/dL (60-115); Magnesium 2.3 mg/dL (1.6-2.6); Potassium 4.1 mmol/L (3.3-5.1); Sodium 145 mmol/L (135-145); Total Protein 6.3 g/dL (6.5-8.0)
[2020-07-10 12:00] LABS: B Type Natriuretic Peptide 158 pg/mL (<100); Troponin-I High Sensitivity 12.5 ng/L (<3.5-35.0)
[2020-07-10 12:03] LABS: Influenza A PCR NEGATIVE (Negative); Influenza B PCR NEGATIVE (Negative); Resp Syncy Virus RNA Qual PCR NEGATIVE (Negative); SARS COV2 PCR INHOUSE NEGATIVE (Negative)
[2020-07-10 12:22] LABS: Glucose Urine UA NEG (NEG); Leukocyte Esterase Urine NEG (NEG); Nitrite Urine NEG (NEG); PH 5.5 (5.0-8.0); Specific Gravity - Urine 1.015 (1.005-1.025); Urine Blood NEG (NEG); Urine Ketones NEG (NEG); Urine Protein NEG (NEG-TRACE)
[2020-07-10 12:23] LABS: Appearance Urine CLEAR; Color Urine YELLOW
[2020-07-10] MEDS: Albuterol/Iprat 2.5/0.5MG 3 ML AMPUL.NEB INHALE (13:38)
--- NOTE | 2020-07-10 14:55 | PC.NURSE ---
This RN to bedside and MRI screening form completed/faxed. Pt reports feeling squirrely when further assessed pt states dizziness with ambulation and feeling off balance. Neuros are intact at this time. Afib on monitor, RBB. Skin pink warm and dry, b/l hand discoloration normal per pt. Pt repositioned in bed. Belongings including jewelry removed in prep for MRI. Spoke to daughter Sobia (verbal permission of pt) and updated at this point. Speech is clear.
--- NOTE | 2020-07-10 15:31 | PM.IMHP ---
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 The patient lives home alone and usually uses a cane or a walker at home. He was recently diagnosed with gout attack and started on prednisone and tramadol for the last few days. He noticed that he is lightheaded and almost falling and find it very difficult to walk around the house even with carpenter assistant cocaine in the walker given the fact that he is lightheaded and feels very weak. He denies falling or hitting his head. He denies any focal weakness, numbness, headache, vision changes, chest pain, shortness of breath or any GI symptoms. A CT scan of the head was negative for any acute findings. CT scan of the chest did not show any acute new findings. Right upper lobe nodule increased in side since the last CT scan. INR was found to be significantly elevated above 6. Admitted for further evaluation and treatment. Review of Systems Review of Systems: No fever, chills or weakness No chest pain, palpitation No shortness of breath or coughing No abdominal pain, nausea or vomiting No urinary symptoms No any rash or wounds Yes all other systems are reviewed and are negative [facility] Medical History (HFpEF) heart failure with preserved ejection fraction Afib Back pain Benign essential hypertension Bilateral lower extremity edema CAD (coronary artery disease) Chronic atrial fibrillation COPD (chronic obstructive pulmonary disease) Gout History of lung cancer HLD (hyperlipidemia) Hypertension Lumbar degenerative disc disease Lung cancer Osteoarthritis Osteoarthritis of knees, bilateral Pure hypercholesterolemia Smoker Type 2 diabetes mellitus with other diabetic kidney complication Vitamin D deficiency Family History Mother No problems noted. Surgical History History of cardiac cath (~02/2016) History of lung surgery (~2013) History of lung surgery (~10/2019) Social History Alcohol intake: never Smoking Status: Current every day smoker Use of substances other than those prescribed or required for medical reasons: No Advance Directives: No Advance Directives Information Provided: No Meds Allergies Allergy/AdvReac Type Severity Reaction Status Date / Time No Known Allergies Allergy Unknown UNKNOWN Verified 06/09/20 09:56 [NO KNOWN ALLERGIES] Active Medications: Current Medications Generic Name Dose Route Start Last Admin Trade Name Freq PRN Reason Stop Dose Admin Pharmacy Consult 1 each 07/10/20 10:35 Consult Rx Perform Med Rec MISCELLANE ONCE PRN Consult order Home Medications Medication Instructions Recorded Confirmed Last Taken Type atenolol 50 mg tablet 50 mg PO BID tab 02/15/20 07/10/20 07/10/20 History warfarin 1 mg tablet 1 mg PO SUWE@1800 tab 03/10/20 07/10/20 07/09/20 History atorvastatin 40 mg PO BEDTIME 07/10/20 07/10/20 07/10/20 History calcium carbonate-vitamin D3 1 tab PO DAILY 07/10/20 07/10/20 07/10/20 History [Calcium + D] folic acid 1 mg PO DAILY 07/10/20 07/10/20 07/10/20 History multivitamin 1 tab PO DAILY 07/10/20 07/10/20 07/10/20 History nicotine 1 patch TRANSDERMAL DAILY 07/10/20 07/10/20 Unknown History vitamins A,C,U-ilrj-obrils 1 cap PO DAILY 07/10/20 07/10/20 07/10/20 History [PreserVision AREDS] warfarin 2 mg PO MOTUTHFRSA@1800 07/10/20 07/10/20 07/08/20 History Physical Exam Vital Signs and Narrative: Vital Signs: Last Vital Signs Temp 97.0 F 07/10/20 09:32 Pulse 89 07/10/20 14:48 Resp 16 07/10/20 14:48 BP 115/52 L 07/10/20 14:48 Pulse Ox 95 07/10/20 14:48 Body Mass Index 19.5 Const: Other: Constitutional : Alert, oriented, not in distress Neck : Normal inspection, Supple Cardiovascular : RRR, S1 S2, no lower extremity edema Respiratory : Good bilateral air entry, no crackles, wheezes or rhonchi Gastrointestinal: soft, lax, Normal bowel sounds, Non tender Skin : Warm/Dry, No rash Neurological : Alert & oriented x3, No focal deficit Results Labs CBC and Chem 7: 07/10/20 11:04 07/10/20 11:06 Labs: Laboratory Results - last 24 hr 07/10/20 07/10/20 07/10/20 11:04 11:04 11:05 MCV 102.0 H MCH 33.8 H MCHC 33.1 RDW 13.8 Plt Count 144 L MPV 11.6 Immature Gran % (Auto) 0.6 H Neut % (Auto) 69.2 Lymph % (Auto) 18.7 L [place] % (Auto) 9.2 Eos % (Auto) 2.2 Baso % (Auto) 0.1 Lymph # (Auto) 1.5 [place] # (Auto) 0.8 Eos # (Auto) 0.2 Baso # (Auto) 0.0 Abs Immat Gran (auto) 0.05 H Absolute Neuts (auto) 5.7 Absolute Nucleated RBC 0.000 Nucleated RBC % (auto) 0.0 PT INR APTT Anion Gap Estim Creat Clear Calc Estimated GFR Random Glucose Calcium Magnesium Total Bilirubin Direct Bilirubin AST ALT Alkaline Phosphatase Troponin I High Sens 12.5 B-Natriuretic Peptide 158 H Total Protein Albumin Urine Color Urine Appearance Urine pH Ur Specific [place] Urine Protein Urine Glucose (UA) Urine Ketones Urine Blood Urine Nitrite Ur Leukocyte Esterase Coronavirus (PCR) NEGATIVE Influenza Type A (PCR) NEGATIVE Influenza Type B (PCR) NEGATIVE RSV RNA Qual (PCR) NEGATIVE 07/10/20 07/10/20 07/10/20 11:06 11:06 12:10 MCV MCH MCHC RDW Plt Count MPV Immature Gran % (Auto) Neut % (Auto) Lymph % (Auto) [place] % (Auto) Eos % (Auto) Baso % (Auto) Lymph # (Auto) [place] # (Auto) Eos # (Auto) Baso # (Auto) Abs Immat Gran (auto) Absolute Neuts (auto) Absolute Nucleated RBC Nucleated RBC % (auto) PT 73.3 H D INR 6.1 H* D APTT 43.6 H D Anion Gap 10 L Estim Creat Clear Calc 45.9 Estimated GFR 56 Random Glucose 101 Calcium 8.9 Magnesium 2.3 Total Bilirubin 0.5 Direct Bilirubin 0.3 AST 18 ALT 18 Alkaline Phosphatase 83 Troponin I High Sens B-Natriuretic Peptide Total Protein 6.3 L Albumin 3.7 Urine Color YELLOW Urine Appearance CLEAR Urine pH 5.5 Ur Specific [place] 1.015 Urine Protein NEG Urine Glucose (UA) NEG Urine Ketones NEG Urine Blood NEG Urine Nitrite NEG Ur Leukocyte Esterase NEG Coronavirus (PCR) Influenza Type A (PCR) Influenza Type B (PCR) RSV RNA Qual (PCR) Imaging Radiologist's Impressions: Impressions Chest X-Ray 07/10/20 10:36 IMPRESSION: Known emphysema. Increased faint patchy opacities of the right lung and left base could be infectious or inflammatory. This may also be atelectatic. Head CT 07/10/20 10:37 IMPRESSION: No acute intracranial pathology. Multiple chronic changes. Chest CT 07/10/20 11:49 IMPRESSION: 1. No lobar or segmental airspace consolidation, groundglass opacity, or effusion. No visible acute inflammatory or infectious abnormality. 2. Post therapy change able: Right upper lobe with smooth macrolobulated nodule slightly increased in size since prior CT 04/04/2020. This could be further assessed with PET/CT. Otherwise, recommend follow-up CT in 3 months for change. 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 Dizziness CT head Negative for any acute findings Orthostatic blood pressure stable but noticed dizziness with position change Not positional or related to inner ear Could be secondary to medications, tramadol? 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 Continue Potassium HTN Continue atenolol and valsartan Atrial fibrillation Continue atenolol and digoxin Hold warfarin DVT PPX Warfarin
[2020-07-10] MEDS: 0.9 % Sodium Chloride Flush 3 ML SYRINGE IVFLUSH (16:39)
--- NOTE | 2020-07-10 17:32 | PC.NURSE ---
Pt in MRI
[2020-07-10] MEDS: Valsartan 40 MG TABLET PO (21:16)
[2020-07-10] MEDS: atenoloL 50 MG TABLET PO (21:17)
[2020-07-10] MEDS: Furosemide 40 MG TABLET PO (21:17)
[2020-07-10] MEDS: Atorvastatin Calcium 40 MG TABLET PO (21:17)
[2020-07-10] MEDS: ondansetron HCL 4 MG/2 ML VIAL IVPUSH (21:54)
[2020-07-11] VITALS (16 sets, daily range): BP systolic 85–131; BP diastolic 52–72; PULSE 69–111; RESP 16–20; TEMP 36.1–37.2; O2SAT 95–96
[2020-07-11] MEDS: 0.9 % Sodium Chloride Flush 3 ML SYRINGE IVFLUSH ×4 (00:04→21:08)
[2020-07-11 06:15] LABS: MANUAL DIFF FLAG NO
[2020-07-11 06:40] LABS: INTERNATIONAL NORM RATIO 4.7 (0.9-1.1); Prothrombin Time 56.6 SEC (10.8-13.0)
[2020-07-11 06:45] LABS: Anion Gap 10 (12-20); Blood Urea Nitrogen 45 mg/dL (9-16); Calcium 8.3 mg/dL (8.4-10.2); Carbon Dioxide 37 mmol/L (22-29); Chloride 103 mmol/L (96-108); Creatinine Clr Calc Pharmacy 49.1; Estimated Glomerular Filt Rate > 60; Glucose Random 100 mg/dL (60-115); Potassium 4.1 mmol/L (3.3-5.1); Sodium 146 mmol/L (135-145)
[2020-07-11 06:47] LABS: Basophils Percent Auto 0.3 % (0-2); Eosinophils Absolute Auto 0.3 X10*3/uL (0.0-0.4); Eosinophils Percent Auto 3.3 % (0-4); Hematocrit 37.4 % (42-52); Hemoglobin 12.3 g/dl (14.0-18.0); Imm Gran Abs Auto 0.04 X10*3/uL (0.00-0.03); Imm Gran Pct Auto 0.5 % (0.0-0.4); Lymphocytes Absolute Auto 1.1 X10*3/uL (1.2-4.9); Mean Corpuscular HGB Conc 32.9 g/dl (31.0-36.0); Mean Corpuscular Hemoglobin 33.2 pg (27.0-33.0); Mean Corpuscular Volume 100.8 fL (80-98); Mean Platelet Volume 11.8 fL (9.4-12.4); Monocytes Absolute Auto 0.7 X10*3/uL (0.1-1.2); Monocytes Percent Auto 8.9 % (2-11); Neutrophils Absolute Auto 5.4 X10*3/uL (2.0-8.3); Platelet Count 126 X10*3/uL (160-400); Red Blood Count 3.71 X10*6/uL (4.60-5.80); Red Cell Distribution Width 13.8 % (11.0-16.0); White Blood Count 7.5 X10*3/uL (4.8-10.8)
--- NOTE | 2020-07-11 08:16 | P.CDIC_ITS ---
CDI Concurrent Query Service Date: 07/11/20 Documentation Clarification: Please clarify if you are treating a proba ble/suspected/likely or confirmed: Mild Protein Calorie Malnutrition Moderate Protein Calorie Malnutrition Severe Protein Calorie Malnutrition Provider Response: Mild Protein-Calorie Malnutrition PLEASE DO NOT DELETE/MODIFY EXISTING CONTENT Additional information is needed in order to code to the highest accuracy and appropriate Severity of Illness (SOI). Please clarify the information noted below in your progress notes and discharge summary. Risk Factors/Clinical Indicators/Treatments 80 year old male admitted with dizziness, Supratherapeutic INR. T 97.0, P 84, R 14, BP 119/56 Height 6'2 Weight 68.946 kg BMI 19.5 Total Protein 6.3 Albumin 3.7 No Nutrition Assessment in EMR CDS: Nilda Valverde RN Contact Number: [phone] Please Review the information above and exercise your independent professional judgment in responding to the query. If you concur, pleas document in the PROGRESS NOTES and DISCHARGE SUMMARY. If you do not agree with the query, please document in the query above. THIS QUERY IS PART OF THE PERMANENT MEDICAL RECORD
[2020-07-11] MEDS: Valsartan 40 MG TABLET 20 MG PO (08:36)
[2020-07-11] MEDS: Potassium Chloride ER 20 MEQ TAB.ER.PRT PO (08:36)
[2020-07-11] MEDS: predniSONE 10 MG TABLET 50 MG PO (08:37)
[2020-07-11] MEDS: Folic Acid 1 MG TABLET PO (08:40)
[2020-07-11] MEDS: Digoxin 0.125 MG TABLET PO (08:40)
[2020-07-11] MEDS: Furosemide 40 MG TABLET PO (08:40)
[2020-07-11] MEDS: Nicotine 14 MG PATCH.TD24 TRANSDERMA (08:40)
[2020-07-11] MEDS: Multivitamin TABLET 1 TAB PO (08:40)
--- NOTE | 2020-07-11 09:43 | MHC.CM.PN ---
IMM 07/11/20 MALE 80 DX DECONDITIONING ELEVATED INR. Pt lives alone with assist from DTRs. No formal services in home currently. The Pt has used [facility] in the past. His preference is to resume home care services. Referral to [facility] has been made. HCP is on file. [facility].
--- NOTE | 2020-07-11 15:21 | HO.PM.IMPN ---
Subjective Subjective Date of Service: 07/11/20 Interval History: the patient was seen and evaluated this morning Laying in bed, feels better today Still having dizziness upon standing, positive postural vitals Denies any fever, chills or shortness of breath No reported other overnight events. Systemic review: No fever, chills but generalized weakness No chest pain, palpitation but this and S Ambulation shortness of breath or coughing No abdominal pain, nausea or vomiting No urinary symptoms No any rash or wounds Physical Exam Vital Signs: Vital Signs: Last Vital Signs Temp 97 F 07/11/20 11:09 Pulse 71 07/11/20 11:09 Resp 20 07/11/20 11:09 BP 98/54 L 07/11/20 11:09 Pulse Ox 95 07/11/20 11:09 Body Mass Index 19.5 Const: Other: Constitutional : Alert, oriented, not in distress Neck : Normal inspection, Supple Cardiovascular : RRR, S1 S2, no lower extremity edema Respiratory : Good bilateral air entry, no crackles, wheezes or rhonchi Gastrointestinal: soft, lax, Normal bowel sounds, Non tender Skin : Warm/Dry, No rash, right foot middle toe tenderness but no erythema, wound or drainage Neurological : Alert & oriented x3, No focal deficit Objective Data Current Medications Generic Name Dose Route Start Last Admin Trade Name Freq PRN Reason Stop Dose Admin Acetaminophen 650 mg 07/10/20 16:37 Acetaminophen 325 Mg Tablet PO Q6H PRN Pain, Mild (Pain Scale 1-3) Atorvastatin Calcium 40 mg 07/10/20 21:00 07/10/20 21:17 Atorvastatin Calcium 40 Mg Tablet PO 40 mg BEDTIME RADHA Administration Digoxin 0.125 mg 07/11/20 09:00 07/11/20 08:40 Digoxin 0.125 Mg Tablet PO 0.125 mg DAILY RADHA Administration Folic Acid 1 mg 07/11/20 09:00 07/11/20 08:40 Folic Acid 1 Mg Tablet PO 1 mg DAILY RADHA Administration Ibuprofen 400 mg 07/10/20 16:37 Ibuprofen 400 Mg Tablet PO Q6H PRN Pain, Moderate (Pain Scale 4-6 Multivitamins/Vitamin C 1 tab 07/11/20 09:00 07/11/20 08:40 Multivitamin Tablet PO 1 tab DAILY RADHA Administration Nicotine 14 mg 07/11/20 09:00 07/11/20 08:40 Nicotine 14 Mg Patch.Td24 TRANSDERMA 14 mg DAILY RADHA Administration Pat Own Med ( 1 each 07/11/20 14:00 07/11/20 14:51 Febuxostat 40mg Tab) PO 1 each DAILY RADHA Administration Ondansetron HCl 4 mg 07/10/20 16:37 07/10/20 21:54 Ondansetron Hcl 4 Mg/2 Ml Vial IVPUSH 4 mg Q8H PRN Administration Nausea and Vomiting Pharmacy Consult 1 each 07/10/20 10:35 Consult Rx Perform Med Rec MISCELLANE ONCE PRN Consult order Potassium Chloride 20 meq 07/11/20 09:00 07/11/20 08:36 Potassium Chloride Er 20 Meq Tab.Er.Prt PO 20 meq DAILY RADHA Administration Prednisone 50 mg 07/11/20 09:00 07/11/20 08:37 Prednisone 10 Mg Tablet PO 07/12/20 23:59 50 mg DAILY RADHA Administration Sodium Chloride 3 ml 07/10/20 16:37 07/11/20 14:52 0.9 % Sodium Chloride Flush 3 Ml Syringe IVFLUSH 3 ml QSHIFT RADHA Administration Labs CBC & Chem 7: 07/11/20 05:33 07/11/20 05:33 Assessment and Plan (1) Dizziness: Status: Acute (2) Gout: Status: Acute (3) Type 2 diabetes mellitus with other diabetic kidney complication: Status: Acute (4) Physical deconditioning: Status: Acute (5) Supratherapeutic INR: Status: Acute Assessment and Plan: 80 years old male with PMH of CHF, AFib on Coumadin, HTN, CAD, COPD, diabetes among others who presented to the hospital complaining of worsening unsteadiness and near falls over the last 3-4 days [employer]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 Continue Potassium HTN Continue atenolol and valsartan Atrial fibrillation Continue atenolol and digoxin Hold warfarin DVT PPX Warfarin
[2020-07-11] MEDS: Atorvastatin Calcium 40 MG TABLET PO (21:08)
[2020-07-11] MEDS: polyethylene glycoL 3350 17 GM POWD.PACK PO (21:08)
[2020-07-12] VITALS (8 sets, daily range): BP systolic 102–128; BP diastolic 55–67; PULSE 69–92; RESP 18–20; TEMP 36.4–36.8; O2SAT 95–97
[2020-07-12 06:23] LABS: Hematocrit 35.7 % (42-52); Hemoglobin 11.8 g/dl (14.0-18.0); Mean Corpuscular HGB Conc 33.1 g/dl (31.0-36.0); Mean Corpuscular Hemoglobin 33.1 pg (27.0-33.0); Mean Corpuscular Volume 100.3 fL (80-98); Mean Platelet Volume 11.9 fL (9.4-12.4); Platelet Count 134 X10*3/uL (160-400); Red Blood Count 3.56 X10*6/uL (4.60-5.80); Red Cell Distribution Width 13.4 % (11.0-16.0); White Blood Count 10.9 X10*3/uL (4.8-10.8)
[2020-07-12 06:28] LABS: INTERNATIONAL NORM RATIO 2.6 (0.9-1.1); Prothrombin Time 31.7 SEC (10.8-13.0)
[2020-07-12] MEDS: Nicotine 14 MG PATCH.TD24 TRANSDERMA (08:20)
[2020-07-12] MEDS: Potassium Chloride ER 20 MEQ TAB.ER.PRT PO (08:22)
[2020-07-12] MEDS: polyethylene glycoL 3350 17 GM POWD.PACK PO (08:22)
[2020-07-12] MEDS: Multivitamin TABLET 1 TAB PO (08:23)
[2020-07-12] MEDS: Folic Acid 1 MG TABLET PO (08:23)
[2020-07-12] MEDS: Furosemide 40 MG TABLET PO (08:23)
[2020-07-12] MEDS: predniSONE 10 MG TABLET 50 MG PO (08:23)
[2020-07-12] MEDS: Digoxin 0.125 MG TABLET PO (08:24)
[2020-07-12] MEDS: 0.9 % Sodium Chloride Flush 3 ML SYRINGE IVFLUSH ×2 (08:24→15:37)
--- NOTE | 2020-07-12 10:49 | PC.NURSE ---
0900 ortho BP laying 129/64 HR 80 sitting 106/68 HR 60 standing 115/68 HR 92
--- NOTE | 2020-07-12 12:40 | HO.PM.IMPN ---
Subjective Subjective Date of Service: 07/12/20 Interval History: the patient was seen and evaluated this morning Laying in bed, feels tired with no energy Reports having dizziness upon standing, positive postural vitals Denies any fever, chills or shortness of breath No reported other overnight events. Systemic review: No fever, chills but generalized weakness No chest pain, palpitation but this and S Improved Ambulation shortness of breath or coughing No abdominal pain, nausea or vomiting No urinary symptoms No any rash or wounds Physical Exam Vital Signs: Vital Signs: Last Vital Signs Temp 98 F 07/12/20 10:51 Pulse 82 07/12/20 10:51 Resp 18 07/12/20 10:51 BP 128/67 07/12/20 10:51 Pulse Ox 97 07/12/20 10:51 Body Mass Index 19.5 Const: Other: Constitutional : Alert, oriented, not in distress Neck : Normal inspection, Supple Cardiovascular : RRR, S1 S2, no lower extremity edema Respiratory : Good bilateral air entry, no crackles, wheezes or rhonchi Gastrointestinal: soft, lax, Normal bowel sounds, Non tender Skin : Warm/Dry, No rash, right foot middle toe tenderness but no erythema, wound or drainage Neurological : Alert & oriented x3, No focal deficit Objective Data Current Medications Generic Name Dose Route Start Last Admin Trade Name Freq PRN Reason Stop Dose Admin Acetaminophen 650 mg 07/10/20 16:37 Acetaminophen 325 Mg Tablet PO Q6H PRN Pain, Mild (Pain Scale 1-3) Atorvastatin Calcium 40 mg 07/10/20 21:00 07/11/20 21:08 Atorvastatin Calcium 40 Mg Tablet PO 40 mg BEDTIME RADHA Administration Bisacodyl 10 mg 07/12/20 12:35 Bisacodyl 10 Mg Supp.Rect AK DAILY RADHA Digoxin 0.125 mg 07/11/20 09:00 07/12/20 08:24 Digoxin 0.125 Mg Tablet PO 0.125 mg DAILY RADHA Administration Folic Acid 1 mg 07/11/20 09:00 07/12/20 08:23 Folic Acid 1 Mg Tablet PO 1 mg DAILY RADHA Administration Furosemide 40 mg 07/12/20 09:00 07/12/20 08:23 Furosemide 40 Mg Tablet PO 40 mg DAILY RADHA Administration Protocol Ibuprofen 400 mg 07/10/20 16:37 Ibuprofen 400 Mg Tablet PO Q6H PRN Pain, Moderate (Pain Scale 4-6 Metoprolol Succinate 25 mg 07/12/20 09:00 07/12/20 10:52 Metoprolol Succinate Er 25 Mg Tab.Er.24h PO Not Given DAILY RADHA Protocol Multivitamins/Vitamin C 1 tab 07/11/20 09:00 07/12/20 08:23 Multivitamin Tablet PO 1 tab DAILY RADHA Administration Nicotine 14 mg 07/11/20 09:00 07/12/20 08:20 Nicotine 14 Mg Patch.Td24 TRANSDERMA 14 mg DAILY RADHA Administration Pat Own Med ( 1 each 07/11/20 14:00 07/12/20 08:26 Febuxostat 40mg Tab) PO 1 each DAILY RADHA Administration Ondansetron HCl 4 mg 07/10/20 16:37 07/10/20 21:54 Ondansetron Hcl 4 Mg/2 Ml Vial IVPUSH 4 mg Q8H PRN Administration Nausea and Vomiting Pharmacy Consult 1 each 07/10/20 10:35 Consult Rx Perform Med Rec MISCELLANE ONCE PRN Consult order Polyethylene Glycol 17 gm 07/11/20 20:45 07/12/20 08:22 Polyethylene Glycol 3350 17 Gm Powd.Pack PO 17 gm DAILY RADHA Administration Potassium Chloride 20 meq 07/11/20 09:00 07/12/20 08:22 Potassium Chloride Er 20 Meq Tab.Er.Prt PO 20 meq DAILY RADHA Administration Prednisone 50 mg 07/11/20 09:00 07/12/20 08:23 Prednisone 10 Mg Tablet PO 07/12/20 23:59 50 mg DAILY RADHA Administration Sodium Chloride 3 ml 07/10/20 16:37 07/12/20 08:24 0.9 % Sodium Chloride Flush 3 Ml Syringe IVFLUSH 3 ml QSHIFT RADHA Administration Labs CBC & Chem 7: 07/12/20 05:29 07/11/20 05:33 Assessment and Plan (1) Dizziness: Status: Acute (2) Gout: Status: Acute (3) Type 2 diabetes mellitus with other diabetic kidney complication: Status: Acute (4) Physical deconditioning: Status: Acute (5) Supratherapeutic INR: Status: Acute Assessment and Plan: 80 years old male with PMH of CHF, AFib on Coumadin, HTN, CAD, COPD, diabetes among others who presented to the hospital complaining of worsening unsteadiness and near falls over the last 3-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 Continue Potassium HTN Continue atenolol and valsartan Atrial fibrillation Continue atenolol and digoxin Hold warfarin DVT PPX Warfarin
[2020-07-12] MEDS: bisacodyL 10 MG SUPP.RECT PR (12:45)
--- NOTE | 2020-07-12 13:50 | MHC.CM.PN ---
DP Male 80 DX Dizziness elevated INR. Discharge plan is home with resumption of [facility]. Family will provide transportation. CM will follow for assessment of change to DC needs. A PT eval has been ordered.
[2020-07-12] MEDS: Warfarin Sodium 1 MG TABLET PO (18:01)
[2020-07-12] MEDS: Docusate Sodium 100 MG CAPSULE PO (20:33)
[2020-07-12] MEDS: Atorvastatin Calcium 40 MG TABLET PO (20:33)
[2020-07-13] VITALS (7 sets, daily range): BP systolic 103–132; BP diastolic 58–78; PULSE 64–98; RESP 18; TEMP 36.5–36.9; O2SAT 96–99
[2020-07-13] MEDS: 0.9 % Sodium Chloride Flush 3 ML SYRINGE IVFLUSH ×2 (00:21→09:22)
[2020-07-13 07:02] LABS: INTERNATIONAL NORM RATIO 1.8 (0.9-1.1); Prothrombin Time 21.9 SEC (10.8-13.0)
[2020-07-13 07:26] LABS: Anion Gap 10 (12-20); Blood Urea Nitrogen 65 mg/dL (9-16); Calcium 8.6 mg/dL (8.4-10.2); Carbon Dioxide 35 mmol/L (22-29); Chloride 101 mmol/L (96-108); Creatinine Clr Calc Pharmacy 54.8; Estimated Glomerular Filt Rate > 60; Glucose Random 122 mg/dL (60-115); Potassium 4.5 mmol/L (3.3-5.1); Sodium 141 mmol/L (135-145)
[2020-07-13] MEDS: Nicotine 14 MG PATCH.TD24 TRANSDERMA (09:21)
[2020-07-13] MEDS: Potassium Chloride ER 20 MEQ TAB.ER.PRT PO (09:22)
[2020-07-13] MEDS: polyethylene glycoL 3350 17 GM POWD.PACK PO (09:22)
[2020-07-13] MEDS: Multivitamin TABLET 1 TAB PO (09:22)
[2020-07-13] MEDS: Digoxin 0.125 MG TABLET PO (09:22)
[2020-07-13] MEDS: Folic Acid 1 MG TABLET PO (09:22)
[2020-07-13] MEDS: Metoprolol Succinate ER 25 MG TAB.ER.24H PO ×2 (09:22→14:23)
--- NOTE | 2020-07-13 12:05 | PM.DS ---
DS: Providers Provider Date of Service: 07/13/20 Date of admission: 07/10/20 18:15 Primary care physician: Ben Durham MD DS: Diagnosis Discharge Diagnosis (1) Postural dizziness with near syncope: Status: Acute (2) Dizziness: Status: Acute (3) Gout: Status: Acute (4) Type 2 diabetes mellitus with other diabetic kidney complication: Status: Acute (5) Physical deconditioning: Status: Acute (6) Supratherapeutic INR: Status: Acute (7) Chronic atrial fibrillation: Status: Acute DS: Medications Discharge Medications Home Medications: Home Medications Medication Instructions Recorded Confirmed PreserVision AREDS 1 cap PO DAILY 07/10/20 07/10/20 atorvastatin 40 mg PO BEDTIME 07/10/20 07/10/20 calcium carbonate-vitamin D3 1 tab PO DAILY 07/10/20 07/10/20 folic acid 1 mg PO DAILY 07/10/20 07/10/20 multivitamin 1 tab PO DAILY 07/10/20 07/10/20 nicotine 1 patch TRANSDERMAL DAILY 07/10/20 07/10/20 Previous Rx's Medication Instructions Recorded potassium chloride 20 mEq 20 meq PO DAILY #90 tab 04/07/20 tablet,extended release(part/cryst) digoxin 125 mcg (0.125 mg) tablet 125 mcg PO DAILY #90 tab 05/09/20 febuxostat 40 mg tablet 40 mg PO DAILY 30 Days #30 tab 05/31/20 furosemide [Lasix] 40 mg PO DAILY #60 tab 07/13/20 metoprolol succinate 25 mg PO DAILY #30 tab 07/13/20 polyethylene glycol 3350 17 g PO DAILY #30 ea 07/13/20 warfarin 1 mg PO DAILY #30 tab 07/13/20 warfarin 1 mg PO QTUTHSA #1 tab 07/13/20 DS: Summary Hospital Course Hospital Course: Admission note HPI 80 years old male with PMH of CHF, AFib on Coumadin, HTN, CAD, COPD, diabetes among others who presented to the hospital complaining of worsening unsteadiness and 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 He was recently diagnosed with gout attack and started on prednisone and tramadol for the last few days. He noticed that he is lightheaded and almost falling and find it very difficult to walk around the house even with outpatient physical therapist assistant cocaine in the walker given the fact that he is lightheaded and feels very weak. He denies falling or hitting his head. He denies any focal weakness, numbness, headache, vision changes, chest pain, shortness of breath or any GI symptoms. A CT scan of the head was negative for any acute findings. CT scan of the chest did not show any acute new findings. Right upper lobe nodule increased in side since the last CT scan. INR was found to be significantly elevated above 6. Admitted for further evaluation and treatment. Hospital course Evaluated primarily for dizziness at time of presentation with near full in syncope. CT head Negative for any acute findings. MRI brain was done and negative for any acute findings He was noted to have hypotension. Orthostatic blood pressure noticed dizziness with position change. Positive orthostatic vitals. Blood pressure medications of atenolol and valsartan were held. Blood pressure improved back to normal with improvement in dizziness. He was advised about the changing of rate control medication of atenolol to metoprolol and to monitor for any tachycardia. Heart rate was mainly stable between 80s to 90s in the hospital with infrequent episodes of 100-120 with exertion. He was evaluated by physical therapy team who recommended outpatient therapy. The patient would like to do home therapy. Was noted Supratherapeutic INR of 6.1 with no bleeding noticed. Warfarin was held and INR dropped down to 2.7 warfarin was restarted. His weekly dosage was decreased from total of 12 to 10 mg. He will be followed by [facility] for INR checks. He has a history of CHF and lower extremity swelling which was negative at time of presentation as he thought to be dry. Lasix was decreased from b.i.d. to once daily for the time being. Discontinue atenolol, valsartan Decrease Lasix to 40 mg once daily To start metoprolol 50 mg XL for heart rate control Will change warfarin dosage to 1 mg every day with the addition of 1 mg on Friday, Friday and will be followed by visiting nurses for blood pressure monitoring, INR check and physical therapy. Time Spent with Patient Time attestation: Total time spent providing and/or coordinating discharge services: Discharge coordination time: Greater than 30 minutes Physical Exam Vital Signs: Vital Signs: Last Vital Signs Temp 98.0 F 07/13/20 07:38 Pulse 98 07/13/20 09:42 Resp 18 07/13/20 07:38 BP 132/68 07/13/20 09:42 Pulse Ox 97 07/13/20 07:38 Body Mass Index 19.5 Const: Other: Constitutional : Alert, oriented, not in distress Neck : Normal inspection, Supple Cardiovascular : Irregularly irregular, S1 S2, no lower extremity edema Respiratory : Good bilateral air entry, no crackles, wheezes or rhonchi Gastrointestinal: soft, lax, Normal bowel sounds, Non tender Skin : Warm/Dry, No wound or drainage Neurological : Alert & oriented x3, No focal deficit DS: Data Data Completed and Pending Labs on day of discharge: Laboratory Results - last 24 hr 07/13/20 07/13/20 06:02 06:02 PT 21.9 H D INR 1.8 H Sodium 141 Potassium 4.5 Chloride 101 Carbon Dioxide 35 H Anion Gap 10 L BUN 65 H Creatinine 1.03 Estim Creat Clear Calc 54.8 Estimated GFR > 60 Random Glucose 122 H Calcium 8.6 Discharge Plan Discharge Patient Disposition: Home Health Service Referrals: [facility] [Outside] Ben Durahm MD [Primary Care Provider] - Discharge Medications: New polyethylene glycol 3350 17 gram Powder In Packet 17 g PO DAILY Qty: 30 RF: 0 warfarin 1 mg tablet 1 mg PO DAILY Qty: 30 RF: 0 warfarin 1 mg tablet 1 mg PO QTUTHSA Qty: 1 RF: 0 metoprolol succinate 50 mg capsule,sprinkle,ER 24hr 50 mg PO DAILY Qty: 30 RF: 1 Continued potassium chloride 20 mEq tablet,ER particles/crystals 20 meq PO DAILY Qty: 90 RF: 1 multivitamin Tablet 1 tab PO DAILY RF: 0 nicotine 14 mg/24 hr Patch 24 Hour 1 patch TRANSDERMAL DAILY RF: 0 calcium carbonate-vitamin D3 600 mg(1,500mg) -200 unit Tablet 1 tab PO DAILY RF: 0 folic acid 1 mg Tablet 1 mg PO DAILY RF: 0 PreserVision AREDS [id number],320-226-200 [id number] Capsule 1 cap PO DAILY RF: 0 atorvastatin 40 mg tablet 40 mg PO BEDTIME RF: 0 febuxostat [Uloric] 40 mg tablet 40 mg PO DAILY 30 Days Qty: 30 RF: 5 digoxin 125 mcg (0.125 mg) tablet 125 mcg PO DAILY Qty: 90 RF: 1 Changed furosemide [Lasix] 40 mg tablet 40 mg PO DAILY Qty: 60 RF: 0 Discontinued prednisone 50 mg tablet 50 mg PO DAILY Qty: 5 RF: 0 tramadol 50 mg tablet 50 mg PO BID PRN (Reason: pain) Qty: 6 RF: 0 warfarin 2 mg Tablet 2 mg PO MOTUTHFRSA@1800 RF: 0 atenolol 50 mg tablet 50 mg PO BID RF: 0 warfarin 1 mg tablet 1 mg PO SUWE@1800 RF: 0 valsartan 40 mg tablet 40 mg PO BID Qty: 180 RF: 1 Discharge Orders: Discharge Order (Routine); Ordered 07/13/20 Ordered By: Marcos Pemberton Diet: advance to usual diet Activity on Discharge: As tolerated Stand Alone Forms: Patient Portal Discharge page Care Plan Goals: Read below Health Concerns: Read below Plan of Treatment: You were admitted to the hospital for evaluation of near falls and dizziness. Brain images and heart monitoring were negative for any acute findings. Your blood pressure was noted to be dropping and running low. Your blood pressure medications were held and you were evaluated by physical therapy team who recommended physical therapy at home. Your noted to have elevated INR level around 6. Warfarin was held until the number went down to target goal. Discontinue atenolol, valsartan Decrease Lasix to 40 mg once daily To start metoprolol 50 mg XL for heart rate control Will change warfarin dosage to 1 mg every day with the addition of 1 mg on Friday, Friday and You will be followed by visiting nurses for blood pressure monitoring, INR check and physical therapy.
--- NOTE | 2020-07-13 12:42 | PC.NURSE ---
1200 ortho BP lying 131/88 HR 113 sitting 127/79 HR 104 standing 116/68 HR 121 Developed tachycardia when ambulating with PT HR up to 136 Dr Pemberton made aware. Will monitor. Pt asymptomatic
--- NOTE | 2020-07-13 14:27 | MHC.INPTTRAN ---
cardiac meds have been adjusted. Has been ambulating with walker. No further dizziness. No pain. INR today 1.8 Resume coumadin. thanks
--- NOTE | 2020-07-13 15:12 | PC.NURSE ---
discharge papers given Understands coumadin orders. to take 2mg on and sat. Home med returned to pt.
== END 2020-07-13 15:49 | disposition home health service (06) | DRG 312 ==
LOC: HO.ED 09:53 → HO.EDOVER 19:25 → HO.IMC 20:26 → HO.EDOVER 07-11 08:10 → HO.IMC 07-11 08:12
PROVIDERS: Physician Assistant; Admitting Provider Student in an Organized Health Care Education/Training Program; Emergency Provider Internal Medicine; PCP Internal Medicine; Visit Provider Student in an Organized Health Care Education/Training Program
DX: I95.1 Orthostatic hypotension (principal); E44.1 Mild protein-calorie malnutrition; Z68.1 Body mass index [BMI] 19.9 or less, adult; I50.32 Chronic diastolic (congestive) heart failure; F17.210 Nicotine dependence, cigarettes, uncomplicated; R79.1 Abnormal coagulation profile; I25.10 Atherosclerotic heart disease of native coronary artery without angina pectoris; I11.0 Hypertensive heart disease with heart failure; Z85.118 Personal history of other malignant neoplasm of bronchus and lung; M10.9 Gout, unspecified; Z20.822 Contact with and (suspected) exposure to COVID-19; Z79.01 Long term (current) use of anticoagulants; Z79.899 Other long term (current) drug therapy
CPT/HCPCS: 0241U; 36415; 70450; 70551; 71045; 71250; 80048; 80076; 81003; 83735; 83880; 84484; 85025; 85027; 85610; 85730; 93005; 94640; 97162; 97530; 99284; J2405

== ENCOUNTER 2020-07-19 08:30 | Outpatient (REF) | payer MEDICARE, SELFPAY ==
[2020-07-19 10:18] LABS: MANUAL DIFF FLAG NO
[2020-07-19 10:22] LABS: Basophils Percent Auto 0.4 % (0-2); Eosinophils Absolute Auto 0.2 X10*3/uL (0.0-0.4); Eosinophils Percent Auto 2.2 % (0-4); Hematocrit 36.8 % (42-52); Hemoglobin 12.2 g/dl (14.0-18.0); Imm Gran Abs Auto 0.02 X10*3/uL (0.00-0.03); Imm Gran Pct Auto 0.3 % (0.0-0.4); Lymphocytes Absolute Auto 1.2 X10*3/uL (1.2-4.9); Lymphocytes Percent Auto 17.1 % (20-40); Mean Corpuscular HGB Conc 33.2 g/dl (31.0-36.0); Mean Corpuscular Hemoglobin 33.7 pg (27.0-33.0); Mean Corpuscular Volume 101.7 fL (80-98); Mean Platelet Volume 11.2 fL (9.4-12.4); Monocytes Absolute Auto 0.4 X10*3/uL (0.1-1.2); Monocytes Percent Auto 6.3 % (2-11); Neutrophils Percent Auto 73.7 % (45-73); Platelet Count 145 X10*3/uL (160-400); Red Blood Count 3.62 X10*6/uL (4.60-5.80); Red Cell Distribution Width 13.7 % (11.0-16.0); White Blood Count 6.8 X10*3/uL (4.8-10.8)
[2020-07-19 10:29] LABS: INTERNATIONAL NORM RATIO 1.4 (0.9-1.1); Prothrombin Time 16.4 SEC (10.8-13.0)
[2020-07-19 10:41] LABS: Glucose Urine UA NEG (NEG); Leukocyte Esterase Urine NEG (NEG); Nitrite Urine NEG (NEG); PH 5.5 (5.0-8.0); Specific Gravity - Urine 1.025 (1.005-1.025); Urine Blood NEG (NEG); Urine Ketones NEG (NEG); Urine Protein NEG (NEG-TRACE)
[2020-07-19 10:43] LABS: Appearance Urine CLEAR; Color Urine YELLOW
[2020-07-19 11:01] LABS: Alanine Aminotransferase 19 U/L (0-40); Albumin Level 3.4 g/dL (3.5-5.0); Alkaline Phosphatase 75 U/L (39-117); Anion Gap 11 (12-20); Aspartate Amino Transferase 18 U/L (5-37); Bilirubin Total 1.3 mg/dL (0.0-1.0); Blood Urea Nitrogen 28 mg/dL (9-16); Calcium 8.5 mg/dL (8.4-10.2); Carbon Dioxide 29 mmol/L (22-29); Chloride 106 mmol/L (96-108); Cholesterol 103 mg/dL; Estimated Glomerular Filt Rate > 60; Glucose Fasting 95 mg/dL (60-99); HDL Cholesterol 43 mg/dL; LDL Cholesterol Calculated 45 mg/dl; Potassium 4.4 mmol/L (3.3-5.1); Sodium 142 mmol/L (135-145); Total Protein 5.8 g/dL (6.5-8.0); Triglycerides 78 mg/dL
[2020-07-19 11:02] LABS: Creatinine Urine 117.82 mg/dL; Microalbum/Creatinine Ratio Ur 44.9 ug/mg cr
[2020-07-19 11:06] LABS: B Type Natriuretic Peptide 186 pg/mL (<100)
[2020-07-19 11:11] LABS: Uric Acid 5.4 mg/dL (3.4-7.0)
[2020-07-19 11:16] LABS: TSH reflex Free T4 0.77 uIU/mL (0.32-4.0); Vitamin D 25-OH Total 34.2 ng/mL (>30)
== END 2020-07-19 08:31 | disposition home or self-care (01) ==
LOC: HO.LAB 08:30
PROVIDERS: Student in an Organized Health Care Education/Training Program; PCP Internal Medicine; Visit Provider Internal Medicine
DX: I11.0 Hypertensive heart disease with heart failure (principal); I50.30 Unspecified diastolic (congestive) heart failure; I48.20 Chronic atrial fibrillation, unspecified; Z51.81 Encounter for therapeutic drug level monitoring; Z79.01 Long term (current) use of anticoagulants; I25.10 Atherosclerotic heart disease of native coronary artery without angina pectoris; F17.200 Nicotine dependence, unspecified, uncomplicated; E78.00 Pure hypercholesterolemia, unspecified; E11.29 Type 2 diabetes mellitus with other diabetic kidney complication; R79.1 Abnormal coagulation profile; E55.9 Vitamin D deficiency, unspecified; M10.9 Gout, unspecified
CPT/HCPCS: 36415; 80048; 80053; 80061; 81003; 82043; 82306; 83880; 84443; 84550; 85025; 85610; 99211

== ENCOUNTER → 2020-07-26 09:29 | Outpatient (BNVA) | payer MEDICARE, SELFPAY | PROVIDERS: PCP Internal Medicine; Visit Provider Internal Medicine | DX: I48.20 Chronic atrial fibrillation, unspecified (principal); Z51.81 Encounter for therapeutic drug level monitoring; Z79.01 Long term (current) use of anticoagulants | CPT/HCPCS: 85610; 99211 ==

== ENCOUNTER → 2020-08-10 09:23 | Outpatient (BNVA) | payer MEDICARE, SELFPAY | PROVIDERS: PCP Internal Medicine; Visit Provider Internal Medicine | DX: I48.20 Chronic atrial fibrillation, unspecified (principal); Z79.01 Long term (current) use of anticoagulants; Z51.81 Encounter for therapeutic drug level monitoring | CPT/HCPCS: 85610; 99211 ==

== ENCOUNTER → 2020-08-15 08:47 | Outpatient (BNVA) | payer MEDICARE, SELFPAY | PROVIDERS: PCP Internal Medicine; Visit Provider Nurse Practitioner Family | DX: I48.20 Chronic atrial fibrillation, unspecified (principal); I11.0 Hypertensive heart disease with heart failure; I50.30 Unspecified diastolic (congestive) heart failure; I25.10 Atherosclerotic heart disease of native coronary artery without angina pectoris; E78.5 Hyperlipidemia, unspecified; Z79.899 Other long term (current) drug therapy | CPT/HCPCS: 99212 ==

== ENCOUNTER → 2020-08-22 11:40 | Outpatient (BNVA) | payer MEDICARE, SELFPAY | PROVIDERS: PCP Internal Medicine; Visit Provider Nurse Practitioner Family | DX: I48.20 Chronic atrial fibrillation, unspecified (principal); I50.30 Unspecified diastolic (congestive) heart failure; I10 Essential (primary) hypertension; I25.10 Atherosclerotic heart disease of native coronary artery without angina pectoris; E78.5 Hyperlipidemia, unspecified | CPT/HCPCS: 99212 ==

== ENCOUNTER 2020-08-24 09:00 | Outpatient (REF) | payer MEDICARE, SELFPAY ==
--- NOTE | ~2020-08-24 | XR_ITS ---
EXAMINATION: XR CHEST CLINICAL INFORMATION: Non-small cell cancer COMPARISON: July 10, 2020 and December 30, 2019 TECHNIQUE: 2 views of the chest were obtained. FINDINGS: There are again noted to be changes of emphysema with diminished vascularity peripherally and prominent central pulmonary arteries. Patient status post right upper lobe surgery with no change in appearance of the clips. Heart normal size. No evidence of pulmonary edema. No pneumothorax or pleural effusion. XR/XR chest 2V IMPRESSION: Stable postsurgical change right upper lobe. Emphysema.
== END 2020-08-24 09:01 | disposition home or self-care (01) ==
LOC: HO.HMGCX 09:00
PROVIDERS: PCP Internal Medicine; Visit Provider Internal Medicine Medical Oncology
DX: C34.91 Malignant neoplasm of unspecified part of right bronchus or lung (principal)
CPT/HCPCS: 71046

== ENCOUNTER → 2020-08-30 09:18 | Outpatient (BNVA) | payer MEDICARE, SELFPAY | PROVIDERS: PCP Internal Medicine; Visit Provider Internal Medicine | DX: I48.20 Chronic atrial fibrillation, unspecified (principal); Z51.81 Encounter for therapeutic drug level monitoring; Z79.01 Long term (current) use of anticoagulants | CPT/HCPCS: 85610; 99211 ==

== ENCOUNTER → 2020-09-05 10:27 | Outpatient (BNVA) | payer MEDICARE, SELFPAY | PROVIDERS: PCP Internal Medicine; Visit Provider Nurse Practitioner Family | DX: I48.20 Chronic atrial fibrillation, unspecified (principal); I50.30 Unspecified diastolic (congestive) heart failure; I10 Essential (primary) hypertension; I25.10 Atherosclerotic heart disease of native coronary artery without angina pectoris; E78.5 Hyperlipidemia, unspecified | CPT/HCPCS: Q3014 ==

== ENCOUNTER → 2020-09-20 09:16 | Outpatient (BNVA) | payer MEDICARE, SELFPAY | PROVIDERS: PCP Internal Medicine; Visit Provider Internal Medicine | DX: I48.20 Chronic atrial fibrillation, unspecified (principal); Z51.81 Encounter for therapeutic drug level monitoring; Z79.01 Long term (current) use of anticoagulants | CPT/HCPCS: 85610; 99211 ==

== ENCOUNTER → 2020-10-11 09:17 | Outpatient (BNVA) | payer MEDICARE, SELFPAY | PROVIDERS: PCP Internal Medicine; Visit Provider Internal Medicine | DX: I48.20 Chronic atrial fibrillation, unspecified (principal); Z51.81 Encounter for therapeutic drug level monitoring; Z79.01 Long term (current) use of anticoagulants | CPT/HCPCS: 85610; 99211 ==

== ENCOUNTER 2020-10-16 08:57 | Outpatient (REF) | payer MEDICARE, SELFPAY ==
[2020-10-16 11:27] LABS: MANUAL DIFF FLAG NO
[2020-10-16 11:31] LABS: Basophils Percent Auto 0.8 % (0-2); Eosinophils Absolute Auto 0.2 X10*3/uL (0.0-0.4); Eosinophils Percent Auto 3.3 % (0-4); Glucose Urine UA NEG (NEG); Hematocrit 40.7 % (42-52); Hemoglobin 13.1 g/dl (14.0-18.0); Leukocyte Esterase Urine NEG (NEG); Lymphocytes Absolute Auto 1.4 X10*3/uL (1.2-4.9); Mean Corpuscular HGB Conc 32.2 g/dl (31.0-36.0); Mean Corpuscular Hemoglobin 32.7 pg (27.0-33.0); Mean Corpuscular Volume 101.5 fL (80-98); Mean Platelet Volume 11.8 fL (9.4-12.4); Monocytes Absolute Auto 0.6 X10*3/uL (0.1-1.2); Monocytes Percent Auto 11.8 % (2-11); Neutrophils Absolute Auto 2.8 X10*3/uL (2.0-8.3); Neutrophils Percent Auto 56.1 % (45-73); Nitrite Urine NEG (NEG); PH 5.5 (5.0-8.0); Platelet Count 173 X10*3/uL (160-400); Red Blood Count 4.01 X10*6/uL (4.60-5.80); Red Cell Distribution Width 14.2 % (11.0-16.0); Specific Gravity - Urine 1.025 (1.005-1.025); Urine Blood 1+ (NEG); Urine Ketones NEG (NEG); Urine Protein TRACE MG/DL (NEG-TRACE); White Blood Count 4.9 X10*3/uL (4.8-10.8)
[2020-10-16 11:37] LABS: Appearance Urine CLEAR; Color Urine YELLOW
[2020-10-16 11:39] LABS: Estimated Average Glucose 120 mg/dL; Hemoglobin A1c % 5.8 %
[2020-10-16 11:57] LABS: Alanine Aminotransferase 18 U/L (0-40); Albumin Level 3.9 g/dL (3.5-5.0); Alkaline Phosphatase 105 U/L (39-117); Anion Gap 13 (12-20); Aspartate Amino Transferase 20 U/L (5-37); Bilirubin Total 1.1 mg/dL (0.0-1.0); Blood Urea Nitrogen 19 mg/dL (9-16); Carbon Dioxide 32 mmol/L (22-29); Chloride 103 mmol/L (96-108); Estimated Glomerular Filt Rate > 60; Glucose Fasting 101 mg/dL (60-99); HDL Cholesterol 45 mg/dL; Sodium 144 mmol/L (135-145); Total Protein 6.4 g/dL (6.5-8.0); Triglycerides 81 mg/dL
[2020-10-16 11:58] LABS: B Type Natriuretic Peptide 232 pg/mL (<100)
[2020-10-16 12:10] LABS: TSH reflex Free T4 0.92 uIU/mL (0.32-4.0)
[2020-10-16 12:18] LABS: Cholesterol 96 mg/dL; LDL Cholesterol Calculated 35 mg/dl
[2020-10-16 12:28] LABS: Squamous Epithelial Cell Urine TRACE /LPF
== END 2020-10-16 08:58 | disposition home or self-care (01) ==
LOC: HO.HMGCLDS 08:57
PROVIDERS: PCP Internal Medicine; Visit Provider Internal Medicine
DX: I11.0 Hypertensive heart disease with heart failure (principal); I50.30 Unspecified diastolic (congestive) heart failure; E78.00 Pure hypercholesterolemia, unspecified; I48.20 Chronic atrial fibrillation, unspecified; M10.09 Idiopathic gout, multiple sites; E11.29 Type 2 diabetes mellitus with other diabetic kidney complication
CPT/HCPCS: 36415; 80053; 80061; 81001; 83036; 83880; 84443; 84550; 85025

== ENCOUNTER → 2020-10-31 10:35 | Outpatient (BNVA) | payer MEDICARE, SELFPAY | PROVIDERS: PCP Internal Medicine; Visit Provider Internal Medicine | DX: I48.20 Chronic atrial fibrillation, unspecified (principal); Z51.81 Encounter for therapeutic drug level monitoring; Z79.01 Long term (current) use of anticoagulants | CPT/HCPCS: 85610; 99211 ==

== ENCOUNTER 2020-11-01 10:05 | Outpatient (REF) | payer MEDICARE, SELFPAY ==
--- NOTE | ~2020-11-01 | CT_ITS ---
EXAMINATION: CT CHEST WITHOUT CONTRAST CLINICAL INFORMATION: Lung cancer COMPARISON: Previous chest CT scans most recent April 2020 and July 2020 TECHNIQUE: Multidetector volumetric CT imaging of the chest was done. Axial MIP volume rendering provided. Sagittal and coronal reformatted images were obtained. This CT examination was performed using dose optimization techniques as appropriate, variously including the following: *Automated exposure control *Adjustment of mA and/or kV according to patient size (this includes techniques or standardized protocols for targeted exams where dose is matched to indication/reason for exam; i.e. extremities or head) *Use of iterative reconstruction technique DLP: 260 mGy-cm FINDINGS: FREIGHT FLAGMAN: LUNGS: There is evidence of severe emphysema. There are postsurgical changes to the right upper lobe with surgical staple line. There is linear scarring and cicatrization bronchiectasis adjacent to the surgical staple line. The oval-shaped soft tissue adjacent to the surgical staple line more centrally or inferior medially appears slightly increased in size measuring 1.4 cm axial image 155 series 5 in AP and transverse dimension compared to 1.2 cm axial image 179 series 5. The more superior lobulated nodules are slightly decreased in size. Largest lobulated nodule measures 7 x 10 mm axial image 99 series 5 compared to 10 x 13 mm axial image 119 series 5 on July 2020 exam. There are small calcified pulmonary nodules that are stable. There is a mixed cystic and groundglass attenuation area seen in the right lower lobe that measures 1.3 x 1.5 cm axial image 385 series 5 does not appear changed. MEDIASTINUM: There is slight interval increase in size and mediastinal lymph nodes. Largest lymph node is a precarinal lymph node measures 1.2 x 2 cm axial image 28 series 3 compared to 0.9 x 1.5 cm July 2020. The heart is enlarged. There is coronary artery calcification. There is no pericardial effusion. Thoracic aorta is upper normal in size. PLEURA: There is right apical pleural thickening. No pleural effusion is seen. AXILLA: Unremarkable UPPER ABDOMEN: There are gallstones in the gallbladder. OSSEOUS STRUCTURES: There are degenerative changes of the spine. CT/CT chest wo con IMPRESSION: Severe emphysema. Postsurgical changes to the right upper lobe. Mixed appearance with interval increase in size in the abnormal soft tissue tracking along the surgical staple line and interval decrease in size in the more peripheral superior adjacent lobulated nodules. Interval increase in mediastinal lymphadenopathy. Stable mixed cystic and groundglass attenuation right lower lobe nodule.
== END 2020-11-01 10:06 | disposition home or self-care (01) ==
LOC: HO.CT 10:05
PROVIDERS: PCP Internal Medicine; Visit Provider Surgery
DX: Z85.118 Personal history of other malignant neoplasm of bronchus and lung (principal)
CPT/HCPCS: 71250

== ENCOUNTER → 2020-11-10 08:42 | Outpatient (BNVA) | payer MEDICARE, SELFPAY | PROVIDERS: PCP Internal Medicine; Visit Provider Surgery | DX: C34.11 Malignant neoplasm of upper lobe, right bronchus or lung (principal); J44.9 Chronic obstructive pulmonary disease, unspecified; R91.1 Solitary pulmonary nodule; Z79.899 Other long term (current) drug therapy; Z79.01 Long term (current) use of anticoagulants; Z90.2 Acquired absence of lung [part of] | CPT/HCPCS: 99212 ==

== ENCOUNTER 2020-11-16 10:02 | Outpatient (REF) | payer MEDICARE, SELFPAY ==
[2020-11-16 12:35] LABS: Digoxin < 0.3 ng/mL (0.8-2.0)
== END 2020-11-16 10:03 | disposition home or self-care (01) ==
LOC: HO.HMGCLDS 10:02
PROVIDERS: PCP Internal Medicine; Visit Provider Internal Medicine Cardiovascular Disease
DX: I48.20 Chronic atrial fibrillation, unspecified (principal); Z79.899 Other long term (current) drug therapy
CPT/HCPCS: 36415; 80162

== ENCOUNTER → 2020-11-21 09:39 | Outpatient (BNVA) | payer MEDICARE, SELFPAY | PROVIDERS: PCP Internal Medicine; Visit Provider Internal Medicine | DX: I48.20 Chronic atrial fibrillation, unspecified (principal); Z51.81 Encounter for therapeutic drug level monitoring; Z79.01 Long term (current) use of anticoagulants | CPT/HCPCS: 85610; 99211 ==

== ENCOUNTER 2020-11-25 10:56 | Outpatient (REF) | payer MEDICARE, SELFPAY ==
--- NOTE | ~2020-11-25 | XR_ITS ---
EXAMINATION: XR SHOULDER, RIGHT CLINICAL INFORMATION: Right shoulder pain. COMPARISON: None TECHNIQUE: AP external rotation, Grashey, scapular Y, and axillary views of the right shoulder. FINDINGS: Mild right glenohumeral and acromioclavicular degenerative joint changes are seen. There is a small subacromial spur. There is no acute fracture or dislocation. The soft tissues are unremarkable. XR/XR shoulder RT min 2V IMPRESSION: Mild degenerative joint changes. No acute abnormality.
--- NOTE | ~2020-11-25 | XR_ITS ---
EXAMINATION: XR CHEST CLINICAL INFORMATION: Chest pain. COMPARISON: 08/24/[address] dated 11/01/2020 TECHNIQUE: 2 views of the chest were obtained. FINDINGS: There is generalized hyperinflation with diffuse coarsened interstitial markings. Post surgical changes are seen in the right apex. The heart and mediastinal structures are unremarkable. XR/XR chest 2V IMPRESSION: Pulmonary findings consistent with known COPD and associated chronic changes. Post surgical changes in the right apex without significant change. No acute cardiopulmonary process.
== END 2020-11-25 10:57 | disposition home or self-care (01) ==
LOC: HO.HMGCX 10:56
PROVIDERS: PCP Internal Medicine; Visit Provider Nurse Practitioner Family
DX: R07.89 Other chest pain (principal); M25.511 Pain in right shoulder
CPT/HCPCS: 71046; 73030

== ENCOUNTER → 2020-11-27 09:20 | Outpatient (BNVA) | payer MEDICARE, SELFPAY | PROVIDERS: PCP Internal Medicine; Referring Provider Internal Medicine; Visit Provider Internal Medicine Cardiovascular Disease | DX: I48.20 Chronic atrial fibrillation, unspecified (principal); I50.30 Unspecified diastolic (congestive) heart failure; Z79.899 Other long term (current) drug therapy | CPT/HCPCS: 99212 ==

== ENCOUNTER 2020-11-28 07:26 | Inpatient (IN) | payer MEDICARE, SELFPAY ==
[2020-11-28] VITALS (15 sets, daily range): BP systolic 113–131; BP diastolic 57–71; PULSE 94–130; RESP 20–35; TEMP 36.5–37.7; O2SAT 91–96; BMI 20.5
--- NOTE | 2020-11-28 | ECG_ITS ---
Test Reason : CHEST PAIN Blood Pressure : / mmHG Vent. Rate : 112 BPM Atrial Rate : 084 BPM P-R Int : 000 ms QRS Dur : 148 ms QT Int : 326 ms P-R-T Axes : 000 266 054 degrees QTc Int : 444 ms Atrial fibrillation with rapid ventricular response Right bundle branch block Abnormal ECG When compared with ECG of 10-JUL-2020 11:07, Vent. rate has increased BY 50 BPM Referred By: Generic ED Physician Electronically Signed By:SYLVIA JULES
--- NOTE | ~2020-11-28 | XR_ITS ---
EXAMINATION: XR CHEST CLINICAL INFORMATION: Chest pain, productive cough, shortness of breath. History lung cancer. COMPARISON: Chest radiographs 11/25/2020, 08/24/2020; CT chest noncontrast 11/01/2020 TECHNIQUE: Upright portable AP x2 views of the chest are obtained. FINDINGS: There are postsurgical changes apical right upper zone with scarring and suture line and smooth pleural thickening similar to prior studies. There is no pneumothorax, lobar or segmental airspace consolidation, or effusion. Suspect small subtle groundglass opacities bilateral infrahilar regions. No air bronchograms. The cardiopericardial silhouette is enlarged but stable. The costophrenic angles are well-defined. The hilar and mediastinal contours and bony structures are stable. XR/XR chest 1V IMPRESSION: 1. Subtle bilateral infrahilar groundglass opacities. No lobar or segmental airspace consolidation or effusion. 2. Postsurgical changes apical right upper zone. 3. Cardiopericardial silhouette stable. Vascularity normal.
[2020-11-28 08:22] LABS: MANUAL DIFF FLAG NO
[2020-11-28 08:29] LABS: Basophils Percent Auto 0.3 % (0-2); Hemoglobin 11.2 g/dl (14.0-18.0); Imm Gran Abs Auto 0.04 X10*3/uL (0.00-0.03); Imm Gran Pct Auto 0.5 % (0.0-0.4); Lymphocytes Absolute Auto 0.5 X10*3/uL (1.2-4.9); Lymphocytes Percent Auto 6.3 % (20-40); Mean Corpuscular HGB Conc 32.9 g/dl (31.0-36.0); Mean Corpuscular Hemoglobin 32.8 pg (27.0-33.0); Mean Corpuscular Volume 99.7 fL (80-98); Mean Platelet Volume 11.2 fL (9.4-12.4); Monocytes Absolute Auto 0.7 X10*3/uL (0.1-1.2); Monocytes Percent Auto 9.4 % (2-11); Neutrophils Absolute Auto 6.3 X10*3/uL (2.0-8.3); Neutrophils Percent Auto 83.5 % (45-73); Platelet Count 149 X10*3/uL (160-400); Red Blood Count 3.41 X10*6/uL (4.60-5.80); Red Cell Distribution Width 14.7 % (11.0-16.0); White Blood Count 7.6 X10*3/uL (4.8-10.8)
[2020-11-28 08:43] LABS: Lactic Acid 1.2 mmol/L (0.5-2.0)
[2020-11-28 08:47] LABS: Alanine Aminotransferase 21 U/L (0-40); Albumin Level 3.4 g/dL (3.5-5.0); Alkaline Phosphatase 79 U/L (39-117); Anion Gap 12 (12-20); Aspartate Amino Transferase 24 U/L (5-37); Bilirubin Total 1.1 mg/dL (0.0-1.0); Blood Urea Nitrogen 29 mg/dL (9-16); Calcium 8.6 mg/dL (8.4-10.2); Carbon Dioxide 32 mmol/L (22-29); Chloride 104 mmol/L (96-108); Creatinine Clr Calc Pharmacy 58.6; Estimated Glomerular Filt Rate > 60; Glucose Random 125 mg/dL (60-115); Sodium 144 mmol/L (135-145)
[2020-11-28 08:51] LABS: Troponin-I High Sensitivity 19.5 ng/L (<3.5-35.0)
--- NOTE | 2020-11-28 09:42 | PC.NURSE ---
Patient is lying in bed resting quietly. Pt continues to complain of sharp chest pain that radiates into left shoulder.
[2020-11-28 09:43] LABS: Magnesium 1.9 mg/dL (1.6-2.6)
[2020-11-28 09:53] LABS: B Type Natriuretic Peptide 700 pg/mL (<100)
[2020-11-28] MEDS: Morphine Sulfate 4 MG/ML CARTRIDGE IVPUSH (09:54)
[2020-11-28 10:18] LABS: INTERNATIONAL NORM RATIO 3.8 (0.9-1.1)
--- NOTE | 2020-11-28 10:49 | PC.NURSE ---
Patient states chest pain is better where he can rest more comfortably and take a nap
--- NOTE | 2020-11-28 10:56 | ED_ITS ---
HPI - General Adult General Chief complaint: Chest Pain Stated complaint: congested, chest pain Time Seen by Provider: 11/28/20 09:21 Source: patient and family (Son-in-law at bedside) Mode of arrival: ambulatory Limitations: no limitations History of Present Illness HPI narrative: 80-year-old male with a past medical history of lung cancer, pulmonary nodules, COPD, coronary artery disease, atrial fibrillation currently on anticoagulation, congestive heart failure with preserved ejection fraction, hypertension, hyperlipidemia, neuropathy, gout, lumbar degenerative disc disease and osteoarthritis presenting to the ED with his son-in-law at bedside with complaints of chest pain since last night that radiates into his left shoulder that he reports it is a sharp sensation that has been constant since last night. He reports he was unable to sleep due to this chest pain although the chest pain did not wake him up from his sleep. He reports he has also noticed a cough for the past 2 days less than a week with white-colored sputum and associated shortness of breath but the shortness of breath is not constant. He apparently had a PET scan today to evaluate if the lung cancer came back although due to him having chest pain radiating to his left arm with a productive cough he came here for further evaluation treatment. He denies any fevers, dizziness, headaches, change of vision, nausea/vomiting, jaw pain, paresthesias, palpitations, abdominal pain, diarrhea, dysuria or any other symptoms complaints or concerns at this time. Denies recent travel or sick contacts. MD complaint: Chest pain, productive cough, shortness of breath Related Data Home Medications Medication Instructions Recorded Confirmed PreserVision AREDS 1 cap PO DAILY 07/10/20 11/28/20 atorvastatin 40 mg PO BEDTIME 07/10/20 11/28/20 calcium carbonate-vitamin D3 1 tab PO DAILY 07/10/20 11/28/20 multivitamin 1 tab PO DAILY 07/10/20 11/28/20 nicotine 1 patch TRANSDERMAL DAILY 07/10/20 11/28/20 warfarin 1 mg tablet 1 mg PO DAILY tab 08/15/20 11/27/20 acetaminophen 650 mg PO Q12H PRN 11/28/20 11/28/20 warfarin 1 mg PO SUWE@1500 11/28/20 11/28/20 warfarin 2 mg PO MOTUTHFRSA@1500 11/28/20 11/28/20 Previous Rx's Medication Instructions Recorded metoprolol succinate 100 mg 100 mg PO DAILY 60 Days #60 tab 08/22/20 tablet,extended release 24 hr furosemide 40 mg tablet 40 mg PO DAILY #60 tab 10/08/20 potassium chloride 20 mEq 20 meq PO DAILY #90 tab 10/13/20 tablet,extended release(part/cryst) folic acid 1 mg tablet 1 mg PO DAILY 90 Days #90 tab 10/17/20 febuxostat 40 mg tablet 40 mg PO DAILY #30 tab 11/20/20 lidocaine 5 % topical patch 1 patch TOPICAL DAILY #15 ea 11/25/20 digoxin 250 mcg (0.25 mg) tablet 250 mcg PO DAILY #30 tab 11/27/20 Allergies Allergy/AdvReac Type Severity Reaction Status Date / Time No Known Allergies Allergy Unknown UNKNOWN Verified 11/25/20 09:55 [NO KNOWN ALLERGIES] Review of Systems Review of Systems: Constitutional : No Weight loss, No Fever, No Chills, No Night Sweats, No Fatigue, No Malaise ENT/Mouth : No Hearing loss, No Ear Pain, No Nasal Congestion, No Sinus Pain, No Hoarseness, No sore throat, No Rhinorrhea, No Swallowing Difficulty Eyes: No Eye Pain, No Swelling, No Redness, No Foreign Body, No Discharge, No Vision Changes Cardiovascular : Positive chest pain, positive shortness of breath, positive dyspnea on exertion, positive orthopnea, No Edema, No extremity swelling, No Palpitations Respiratory : Positive cough with white-colored sputum production, No Wheezing Gastrointestinal : No Nausea, No Vomiting, No Diarrhea, No abdominal Pain, No Hematochezia, No Melena Genitourinary : No irregular bleeding, No Dysuria, No Urinary Frequency, No Hematuria, No Urinary Incontinence, No Urgency, No Flank Pain, No Urinary Flow Changes, No Hesitancy Musculoskeletal : No joint pain, No Myalgias, No Joint Swelling Skin : No Skin Lesions, No rash Neuro : No Weakness, No Numbness, No Paresthesias, No Loss of Consciousness, No Dizziness, No Headache Psych : No Anxiety/Panic, No Depression, No SI/HI/AH/VH Heme/Lymph: No Bruising, No Bleeding,No Lymphadenopathy Endocrine : No Polyuria, No Polydipsia, No Temperature Intolerance Yes all other systems are reviewed and are negative PMFSH Past Medical History Attestation statement: The following information was validated with the patient. Medical History (HFpEF) heart failure with preserved ejection fraction Afib Back pain Benign essential hypertension Bilateral lower extremity edema CAD (coronary artery disease) Chronic atrial fibrillation COPD (chronic obstructive pulmonary disease) Gout History of lung cancer HLD (hyperlipidemia) Hypertension Lumbar degenerative disc disease Lung cancer Neuropathy Osteoarthritis Osteoarthritis of knees, bilateral Physical deconditioning Pure hypercholesterolemia Smoker Type 2 diabetes mellitus with other diabetic kidney complication Vitamin D deficiency Surgical History History of cardiac cath (~02/2016) History of lung surgery (~2013) History of lung surgery (~10/2019) Family History Family History Mother No problems noted. Social History Social History Household Members: None Housing: House Alcohol intake: never Patient Tobacco Use Status: Current everyday Tobacco user Cigarettes Per Day: 12 Advance Directives: Yes Advance Directives Information Provided: No Advance Directives on File: No service: No Current occupational status: retired Physical Exam Vital Signs: Vital Signs: Last Vital Signs Temp 99.8 F 11/28/20 07:45 Pulse 94 11/28/20 15:02 Resp 33 H 11/28/20 15:02 BP 125/69 11/28/20 15:02 Pulse Ox 93 11/28/20 15:02 Body Mass Index 20.5 vital signs have been reviewed as normal and appeared to be correct. Blood pressure normal. Heart rate tachycardic at 112. Respiration rate tachypneic at 32. Temperature normal. Oxygen saturation normal. Appearance: Alert. Oriented X3. No acute distress. Head: Normal external exam. Normocephalic. Atraumatic. Eyes: PERRLA. EOMI. Conjunctiva and sclera normal. Eyelids normal. ENT: Pharynx normal. Uvula midline. Moist mucous membranes. No trismus noted. No drooling noted. No muffled voice noted. Neck: Normal inspection. Neck supple. FROM. No adenopathy. Thyroid Normal. No meningeal signs. No neck mass noted. CVS: Normal heart rate and rhythm. Heart sound normal. Pulses normal throughout. No murmurs/rales/gallops. Respiratory: No respiratory distress. Painless inspiration. Decreased breath sounds otherwise No wheezes/rales/rhonchi noted. Chest nontender. No accessory muscle usage noted or decreased air movement noted. Abdomen: Soft and nontender. Bowel sounds normal in all 4 quadrants. No distention noted. No organomegaly noted. No visible injury noted. Back: No CVA tenderness. Full range of motion noted. No rashes/lesion/induration/fluctuance or signs of infection noted. Skin: Skin warm and dry. Normal skin color. Normal skin turgor. No rashes/lesions/lacerations noted. Extremities: No lower extremity edema. No calf tenderness is noted. Extremities exhibit normal range of motion. Extremities nontender. Neuro: Oriented X 3. No motor deficit. No sensory deficit. Reflexes normal. Normal steady gait. No focal neuro deficits noted. Vascular: + radial pulses/+ 2 distal pedal pulses/+2 dorsalis pedis b/l. Normal cap refill. No cyanosis noted to upper extremity nails and lower extremity toes nails. Course Course Course Narrative: 9:24am - 80-year-old male presenting to the ED with his son-in-law at bedside with complaints of chest pain since last night that radiates to his left shoulder that he reports it is sharp in sensation that has been constant did not wake him up out of his sleep. Although he was unable to sleep due to this pain. He also reports that a few days prior he developed a productive cough with white-colored sputum and has had occasional intermittent shortness of breath. He denies any other symptoms complaints or concerns at this time. On exam patient is alert and oriented x3. Mildly tachycardic at 112 and tachypneic at 32. Not in any acute distress. No focal neuro deficits are noted. Decreased breath sounds otherwise clear to auscultation. CV RRR. Abdomen is soft and nontender. No lower extremity edema or calf tenderness is noted. Plan: Labs, EKG, chest x-ray, blood cultures, lactic acid and re-evaluate. It appears they got most of the patient's labs before the patient had a provider. Reevaluation(s) Reevaluation #1: - labs reviewed and patient with mild baseline anemia similar compared to prior. PT INR mildly 45/3.8. Carbon dioxide 32. BUN 29. Random glucose 125. Total bilirubin 1.1. BNP 700. Troponin 18.4. Otherwise all other labs are within normal limits. Chest x-ray similar compared to a CT scan on 11/01/2020 no acute processes were noted. Patient most likely bronchitis and acute exacerbation of CHF. EKG is atrial fibrillation with rapid ventricular response with a ventricular rate of 112 with a right bundle branch block no acute ischemic changes are noted. Similar compared to prior EKG 12/22/2020. - therefore at this time patient will receive 2 g of Rocephin for bronchitis and 40 mg of Lasix for acute exacerbation of CHF and patient will be admitted. Patient is excluded from any fluids due to he is in fluid overload due to BNP of 700 no fluids will be given. Dr. Pennington accepted admission at this time. Time: 10:52 Medical Decision Making Medical Records Medical records reviewed: Yes I reviewed the patient's medical records. Lab Data Lab results reviewed: Yes I reviewed the patient's lab results. Result diagrams: 11/28/20 08:16 11/28/20 08:16 Labs: Lab Results 11/28/20 11/28/20 11/28/20 Range/Units 08:16 08:16 08:16 WBC 7.6 (4.8-10.8) X10*3/uL RBC 3.41 L (4.60-5.80) X10*6/uL Hgb 11.2 L (14.0-18.0) g/dl Hct 34.0 L (42-52) % MCV 99.7 H (80-98) fL MCH 32.8 (27.0-33.0) pg MCHC 32.9 (31.0-36.0) g/dl RDW 14.7 (11.0-16.0) % Plt Count 149 L (160-400) X10*3/uL MPV 11.2 (9.4-12.4) fL Immature Gran % (Auto) 0.5 H (0.0-0.4) % Neut % (Auto) 83.5 H (45-73) % Lymph % (Auto) 6.3 L (20-40) % [place] % (Auto) 9.4 (2-11) % Eos % (Auto) 0.0 (0-4) % Baso % (Auto) 0.3 (0-2) % Lymph # (Auto) 0.5 L (1.2-4.9) X10*3/uL [place] # (Auto) 0.7 (0.1-1.2) X10*3/uL Eos # (Auto) 0.0 (0.0-0.4) X10*3/uL Baso # (Auto) 0.0 (0.0-0.2) X10*3/uL Abs Immat Gran (auto) 0.04 H (0.00-0.03) X10*3/uL Absolute Neuts (auto) 6.3 (2.0-8.3) X10*3/uL Absolute Nucleated RBC 0.000 (0.0-0.012) X10*3/uL Nucleated RBC % (auto) 0.0 (0.0-0.2) /100WBC PT (9.9-13.0) SEC INR (0.9-1.1) Sodium 144 (135-145) mmol/L Potassium 4.0 (3.3-5.1) mmol/L Chloride 104 (96-108) mmol/L Carbon Dioxide 32 H (22-29) mmol/L Anion Gap 12 (12-20) BUN 29 H D (9-16) mg/dL Creatinine 1.01 (0.5-1.4) mg/dL Estim Creat Clear Calc 58.6 Estimated GFR > 60 Random Glucose 125 H (60-115) mg/dL Lactic Acid (0.5-2.0) mmol/L Calcium 8.6 (8.4-10.2) mg/dL Magnesium 1.9 (1.6-2.6) mg/dL Total Bilirubin 1.1 H (0.0-1.0) mg/dL AST 24 (5-37) U/L ALT 21 (0-40) U/L Alkaline Phosphatase 79 D (39-117) U/L Troponin I High Sens 19.5 (<3.5-35.0) ng/L B-Natriuretic Peptide (<100) pg/mL Total Protein 6.0 L (6.5-8.0) g/dL Albumin 3.4 L (3.5-5.0) g/dL Digoxin (0.8-2.0) ng/mL Coronavirus (PCR) (Negative) Influenza Type A (PCR) (Negative) Influenza Type B (PCR) (Negative) RSV RNA Qual (PCR) (Negative) 11/28/20 11/28/20 11/28/20 Range/Units 08:16 08:16 09:30 WBC (4.8-10.8) X10*3/uL RBC (4.60-5.80) X10*6/uL Hgb (14.0-18.0) g/dl Hct (42-52) % MCV (80-98) fL MCH (27.0-33.0) pg MCHC (31.0-36.0) g/dl RDW (11.0-16.0) % Plt Count (160-400) X10*3/uL MPV (9.4-12.4) fL Immature Gran % (Auto) (0.0-0.4) % Neut % (Auto) (45-73) % Lymph % (Auto) (20-40) % [place] % (Auto) (2-11) % Eos % (Auto) (0-4) % Baso % (Auto) (0-2) % Lymph # (Auto) (1.2-4.9) X10*3/uL [place] # (Auto) (0.1-1.2) X10*3/uL Eos # (Auto) (0.0-0.4) X10*3/uL Baso # (Auto) (0.0-0.2) X10*3/uL Abs Immat Gran (auto) (0.00-0.03) X10*3/uL Absolute Neuts (auto) (2.0-8.3) X10*3/uL Absolute Nucleated RBC (0.0-0.012) X10*3/uL Nucleated RBC % (auto) (0.0-0.2) /100WBC PT (9.9-13.0) SEC INR (0.9-1.1) Sodium (135-145) mmol/L Potassium (3.3-5.1) mmol/L Chloride (96-108) mmol/L Carbon Dioxide (22-29) mmol/L Anion Gap (12-20) BUN (9-16) mg/dL Creatinine (0.5-1.4) mg/dL Estim Creat Clear Calc Estimated GFR Random Glucose (60-115) mg/dL Lactic Acid 1.2 (0.5-2.0) mmol/L Calcium (8.4-10.2) mg/dL Magnesium (1.6-2.6) mg/dL Total Bilirubin (0.0-1.0) mg/dL AST (5-37) U/L ALT (0-40) U/L Alkaline Phosphatase (39-117) U/L Troponin I High Sens (<3.5-35.0) ng/L B-Natriuretic Peptide 700 H (<100) pg/mL Total Protein (6.5-8.0) g/dL Albumin (3.5-5.0) g/dL Digoxin (0.8-2.0) ng/mL Coronavirus (PCR) NEGATIVE (Negative) Influenza Type A (PCR) NEGATIVE (Negative) Influenza Type B (PCR) NEGATIVE (Negative) RSV RNA Qual (PCR) NEGATIVE (Negative) 11/28/20 11/28/20 11/28/20 Range/Units 09:53 10:51 10:51 WBC (4.8-10.8) X10*3/uL RBC (4.60-5.80) X10*6/uL Hgb (14.0-18.0) g/dl Hct (42-52) % MCV (80-98) fL MCH (27.0-33.0) pg MCHC (31.0-36.0) g/dl RDW (11.0-16.0) % Plt Count (160-400) X10*3/uL MPV (9.4-12.4) fL Immature Gran % (Auto) (0.0-0.4) % Neut % (Auto) (45-73) % Lymph % (Auto) (20-40) % [place] % (Auto) (2-11) % Eos % (Auto) (0-4) % Baso % (Auto) (0-2) % Lymph # (Auto) (1.2-4.9) X10*3/uL [place] # (Auto) (0.1-1.2) X10*3/uL Eos # (Auto) (0.0-0.4) X10*3/uL Baso # (Auto) (0.0-0.2) X10*3/uL Abs Immat Gran (auto) (0.00-0.03) X10*3/uL Absolute Neuts (auto) (2.0-8.3) X10*3/uL Absolute Nucleated RBC (0.0-0.012) X10*3/uL Nucleated RBC % (auto) (0.0-0.2) /100WBC PT 45.0 H (9.9-13.0) SEC INR 3.8 H (0.9-1.1) Sodium (135-145) mmol/L Potassium (3.3-5.1) mmol/L Chloride (96-108) mmol/L Carbon Dioxide (22-29) mmol/L Anion Gap (12-20) BUN (9-16) mg/dL Creatinine (0.5-1.4) mg/dL Estim Creat Clear Calc Estimated GFR Random Glucose (60-115) mg/dL Lactic Acid (0.5-2.0) mmol/L Calcium (8.4-10.2) mg/dL Magnesium (1.6-2.6) mg/dL Total Bilirubin (0.0-1.0) mg/dL AST (5-37) U/L ALT (0-40) U/L Alkaline Phosphatase (39-117) U/L Troponin I High Sens 18.4 (<3.5-35.0) ng/L B-Natriuretic Peptide (<100) pg/mL Total Protein (6.5-8.0) g/dL Albumin (3.5-5.0) g/dL Digoxin 1.0 (0.8-2.0) ng/mL Coronavirus (PCR) (Negative) Influenza Type A (PCR) (Negative) Influenza Type B (PCR) (Negative) RSV RNA Qual (PCR) (Negative) Imaging Data Chest x-ray: Attestation: I personally reviewed and interpreted this imaging study as follows: Radiologist's impression: FINDINGS: There are postsurgical changes apical right upper zone with scarring and suture line and smooth pleural thickening similar to prior studies. There is no pneumothorax, lobar or segmental airspace consolidation, or effusion. Suspect small subtle groundglass opacities bilateral infrahilar regions. No air bronchograms. The cardiopericardial silhouette is enlarged but stable. The costophrenic angles are well-defined. The hilar and mediastinal contours and bony structures are stable. XR/XR chest 1V IMPRESSION: 1. Subtle bilateral infrahilar groundglass opacities. No lobar or segmental airspace consolidation or effusion. 2. Postsurgical changes apical right upper zone. 3. Cardiopericardial silhouette stable. Vascularity normal. ECG Data Attestation: I personally reviewed and interpreted this ECG as follows: Interpretation: EKG is atrial fibrillation with rapid ventricular response with a ventricular rate of 112 with a right bundle branch block no acute ischemic changes are noted. Similar compared to prior EKG 12/22/2020. Critical Care Time Critical Care Time Critical Care Time: Yes Total Critical Care Time: 60 Attestation: I personally attest to this time spent taking care of the patient Discharge Plan Discharge Clinical Impression: Acute exacerbation of CHF (congestive heart failure), Bronchitis Patient Disposition: Admitted As Inpatient
[2020-11-28] MEDS: Furosemide 40 MG/4 ML VIAL IVPUSH ×2 (11:07→22:35)
[2020-11-28] MEDS: cefTRIAXone sodium 2 GM in 0.9 % Sodium Chloride 50 ML IV (11:07)
[2020-11-28 11:25] LABS: Troponin-I High Sensitivity 18.4 ng/L (<3.5-35.0)
--- NOTE | 2020-11-28 11:31 | PHA.MEDREC ---
Pharmacy Consult ? Medication Reconciliation Pharmacy has completed the medication reconciliation.
--- NOTE | 2020-11-28 12:53 | PC.NURSE ---
Patient is resting quietly in bed with eyes closed in no distress.
[2020-11-28 13:26] LABS: Influenza A PCR NEGATIVE (Negative); Influenza B PCR NEGATIVE (Negative); Resp Syncy Virus RNA Qual PCR NEGATIVE (Negative); SARS COV2 PCR INHOUSE NEGATIVE (Negative)
--- NOTE | 2020-11-28 13:26 | P.HPHOSP_ITS ---
History of Present Illness Date of Service: 11/28/20 Chief Complaint: cough, sob 80M presented with 2 days of cough and sob with productive yellow sputum. patient has history of copd, chronic diastolic chf, lung ca, chronic afib on coumadin, CAD. reports chills, no sick contact, denies orthopnea, le edema. labs significant for increased bnp - 700 (previous was 232), cxr showed subtle bilateral infrahilar groundglass opacities. patient was given lasix and rocephin. Review of Systems Review of Systems: Constitutional: Chills Eyes: denies blurry vision ENT: denies sore throat CVS: chest pain Respiratory: dyspnea GI: no abdominal pain : denies dysuria MSK: denies neck pain Skin: denies rash Neuro: denies specific motor weakness Psych: denies suicidal ideation Endocrine: denies heat/cold intolerance Hematologic: denies easy bleeding Allergy: denies hives [facility] Medical History (HFpEF) heart failure with preserved ejection fraction Afib Back pain Benign essential hypertension Bilateral lower extremity edema CAD (coronary artery disease) Chronic atrial fibrillation COPD (chronic obstructive pulmonary disease) Gout History of lung cancer HLD (hyperlipidemia) Hypertension Lumbar degenerative disc disease Lung cancer Neuropathy Osteoarthritis Osteoarthritis of knees, bilateral Physical deconditioning Pure hypercholesterolemia Smoker Type 2 diabetes mellitus with other diabetic kidney complication Vitamin D deficiency Family History Mother No problems noted. Family history: reviewed and not pertinent Surgical History History of cardiac cath (~02/2016) History of lung surgery (~2013) History of lung surgery (~10/2019) Social History Household Members: None Housing: House Alcohol intake: never Patient Tobacco Use Status: Current everyday Tobacco user Cigarettes Per Day: 12 Advance Directives: Yes Advance Directives Information Provided: No Advance Directives on File: No service: No Current occupational status: retired Meds Allergies Allergy/AdvReac Type Severity Reaction Status Date / Time No Known Allergies Allergy Unknown UNKNOWN Verified 11/25/20 09:55 [NO KNOWN ALLERGIES] Active Medications: Current Medications Generic Name Dose Route Start Last Admin Trade Name Denise PRN Reason Stop Dose Admin Atorvastatin Calcium 40 mg 11/28/20 21:00 Atorvastatin Calcium 40 Mg Tablet PO BEDTIME COUNT INCLUDES THE [facility] Digoxin 0.25 mg 11/29/20 09:00 Digoxin 0.25 Mg Tablet PO DAILY COUNT INCLUDES THE [facility] Folic Acid 1 mg 11/29/20 09:00 Folic Acid 1 Mg Tablet PO DAILY COUNT INCLUDES THE [facility] Metoprolol Succinate 100 mg 11/29/20 09:00 Metoprolol Succinate Er 100 Mg Tab.Er.24h PO DAILY COUNT INCLUDES THE [facility] Protocol Multivitamins/Vitamin C 1 tab 11/29/20 09:00 Multivitamin Tablet PO DAILY COUNT INCLUDES THE [facility] Non-Formulary Medication 40 mg 11/29/20 09:00 Febuxostat PO DAILY COUNT INCLUDES THE [facility] Pharmacy Consult 1 each 11/28/20 11:03 Consult Rx Perform Med Rec MISCELLANE ONCE PRN Consult order Home Medications Medication Instructions Recorded Confirmed Last Taken Type PreserVision AREDS 1 cap PO DAILY 07/10/20 11/28/20 11/28/20 History atorvastatin 40 mg PO BEDTIME 07/10/20 11/28/20 11/27/20 History calcium carbonate-vitamin D3 1 tab PO DAILY 07/10/20 11/28/20 11/28/20 History multivitamin 1 tab PO DAILY 07/10/20 11/28/20 11/28/20 History nicotine 1 patch TRANSDERMAL DAILY 07/10/20 11/28/20 11/27/20 History warfarin 1 mg tablet 1 mg PO DAILY tab 08/15/20 11/27/20 Unknown History acetaminophen 650 mg PO Q12H PRN 11/28/20 11/28/20 11/27/20 History warfarin 1 mg PO SUWE@1500 11/28/20 11/28/20 11/27/20 History warfarin 2 mg PO MOTUTHFRSA@1500 11/28/20 11/28/20 11/27/20 History Physical Exam Vital Signs and Narrative: Vital Signs: Last Vital Signs Temp 99.8 F 11/28/20 07:45 Pulse 106 H 11/28/20 12:51 Resp 28 H 11/28/20 12:51 BP 117/68 11/28/20 12:51 Pulse Ox 92 11/28/20 12:51 Body Mass Index 20.5 General: no acute distress, overall ill appearing, chachexic HEENT: atraumatic Neck: normal to visual inspection CVS: S1, S2, RRR Resp: diminsihed Chest: non tender GI: soft, non tender, non distended : no CVA tenderness Skin: no rashes Extremities: no edema Neuro: Oriented X3, grossly intact Psych: cooperative Results Labs CBC and Chem 7: 11/28/20 08:16 11/28/20 08:16 Labs: Laboratory Results - last 24 hr 11/28/20 11/28/20 11/28/20 08:16 08:16 08:16 MCV 99.7 H MCH 32.8 MCHC 32.9 RDW 14.7 Plt Count 149 L MPV 11.2 Immature Gran % (Auto) 0.5 H Neut % (Auto) 83.5 H Lymph % (Auto) 6.3 L [place] % (Auto) 9.4 Eos % (Auto) 0.0 Baso % (Auto) 0.3 Lymph # (Auto) 0.5 L [place] # (Auto) 0.7 Eos # (Auto) 0.0 Baso # (Auto) 0.0 Abs Immat Gran (auto) 0.04 H Absolute Neuts (auto) 6.3 Absolute Nucleated RBC 0.000 Nucleated RBC % (auto) 0.0 PT INR Anion Gap 12 Estim Creat Clear Calc 58.6 Estimated GFR > 60 Random Glucose 125 H Lactic Acid Calcium 8.6 Magnesium 1.9 Total Bilirubin 1.1 H AST 24 ALT 21 Alkaline Phosphatase 79 D Troponin I High Sens 19.5 B-Natriuretic Peptide Total Protein 6.0 L Albumin 3.4 L Digoxin 11/28/20 11/28/20 11/28/20 08:16 08:16 09:53 MCV MCH MCHC RDW Plt Count MPV Immature Gran % (Auto) Neut % (Auto) Lymph % (Auto) [place] % (Auto) Eos % (Auto) Baso % (Auto) Lymph # (Auto) [place] # (Auto) Eos # (Auto) Baso # (Auto) Abs Immat Gran (auto) Absolute Neuts (auto) Absolute Nucleated RBC Nucleated RBC % (auto) PT 45.0 H INR 3.8 H Anion Gap Estim Creat Clear Calc Estimated GFR Random Glucose Lactic Acid 1.2 Calcium Magnesium Total Bilirubin AST ALT Alkaline Phosphatase Troponin I High Sens B-Natriuretic Peptide 700 H Total Protein Albumin Digoxin 11/28/20 11/28/20 10:51 10:51 MCV MCH MCHC RDW Plt Count MPV Immature Gran % (Auto) Neut % (Auto) Lymph % (Auto) [place] % (Auto) Eos % (Auto) Baso % (Auto) Lymph # (Auto) [place] # (Auto) Eos # (Auto) Baso # (Auto) Abs Immat Gran (auto) Absolute Neuts (auto) Absolute Nucleated RBC Nucleated RBC % (auto) PT INR Anion Gap Estim Creat Clear Calc Estimated GFR Random Glucose Lactic Acid Calcium Magnesium Total Bilirubin AST ALT Alkaline Phosphatase Troponin I High Sens 18.4 B-Natriuretic Peptide Total Protein Albumin Digoxin 1.0 Imaging Radiologist's Impressions: Impressions Chest X-Ray 11/28/20 09:24 IMPRESSION: 1. Subtle bilateral infrahilar groundglass opacities. No lobar or segmental airspace consolidation or effusion. 2. Postsurgical changes apical right upper zone. 3. Cardiopericardial silhouette stable. Vascularity normal. Assessment and Plan (1) Acute exacerbation of CHF (congestive heart failure): Status: Acute 80M presented with sob and cough acute bronchitis/copd exacerbation steroids, bronchodilators, doxy acute on chronic diastolic chf iv lasix, monitor lytes, check echo does not appear significantly overloaded, can likely change to oral tomorrow chronic afib dig, toprol on coumadin, (currently held for INR 3.8), goal ine 2-3, monitor CAD statin, coumadin moderate protein calorie malnutrition po intake encouraged Quality Stroke Does the patient have a stroke diagnosis?: No VTE Prior VTE?: No VTE Risk Level:: Medical - moderate - high VTE Device Contraindication: Treatment Not Indicated VTE Drug Contraindication: N/A - Med Ordered
[2020-11-28] MEDS: methylPREDNISolone Sod Succ 40 MG/ML VIAL IVPUSH (13:41)
[2020-11-28] MEDS: Doxycycline Hyclate 100 MG in 0.9 % Sodium Chloride 250 ML 166.67 MG IV (14:05)
--- NOTE | 2020-11-28 15:19 | PC.NURSE ---
Patient is asleep in bed in no distress currently
[2020-11-28] MEDS: Nicotine 14 MG PATCH.TD24 TRANSDERMA (16:47)
--- NOTE | 2020-11-28 20:45 | MHC.CM.PN ---
CM met with A&O x3, independent gentleman, who is admitted and pending bed assignment. IMM reviewed and signed per protocol 11/28/20@2024. Pt lives alone, uses a cane and has no services. HCP is on file, Chris Encinas ([phone]). D/C plan is home without services. Transportation home by family. CM to follow for d/c planning.
[2020-11-28] MEDS: Atorvastatin Calcium 40 MG TABLET PO (22:28)
[2020-11-29] VITALS (11 sets, daily range): BP systolic 111–141; BP diastolic 52–80; PULSE 90–120; RESP 17–20; TEMP 36.2–36.8; O2SAT 94–98; BMI 20.3
[2020-11-29] MEDS: Doxycycline Hyclate 100 MG in 0.9 % Sodium Chloride 250 ML 166.67 MG IV ×2 (01:49→15:14)
[2020-11-29] MEDS: methylPREDNISolone Sod Succ 40 MG/ML VIAL IVPUSH ×2 (01:50→15:14)
[2020-11-29 06:19] LABS: INTERNATIONAL NORM RATIO 4.4 (0.9-1.1); Prothrombin Time 51.2 SEC (9.9-13.0)
[2020-11-29 06:30] LABS: Hematocrit 35.5 % (42-52); Hemoglobin 11.6 g/dl (14.0-18.0); Mean Corpuscular HGB Conc 32.7 g/dl (31.0-36.0); Mean Corpuscular Hemoglobin 32.5 pg (27.0-33.0); Mean Corpuscular Volume 99.4 fL (80-98); Mean Platelet Volume 11.7 fL (9.4-12.4); Platelet Count 151 X10*3/uL (160-400); Red Blood Count 3.57 X10*6/uL (4.60-5.80); Red Cell Distribution Width 14.4 % (11.0-16.0); White Blood Count 8.1 X10*3/uL (4.8-10.8)
[2020-11-29 06:55] LABS: B Type Natriuretic Peptide 833 pg/mL (<100)
[2020-11-29 07:20] LABS: Anion Gap 13 (12-20); Blood Urea Nitrogen 43 mg/dL (9-16); Calcium 8.8 mg/dL (8.4-10.2); Carbon Dioxide 33 mmol/L (22-29); Chloride 101 mmol/L (96-108); Creatinine Clr Calc Pharmacy 54.5; Estimated Glomerular Filt Rate > 60; Glucose Fasting 156 mg/dL (60-99); Magnesium 1.9 mg/dL (1.6-2.6); Potassium 4.6 mmol/L (3.3-5.1); Sodium 142 mmol/L (135-145)
--- NOTE | 2020-11-29 07:30 | CA_ITS ---
Transthoracic Echocardiogram Patient (Last, First, Middle): Scottie Encinas J Gender: Male Date of : 1940 Age: 80 Procedure Date: 11/29/2020 Procedure Type: Transthoracic Echocardiogram [place] [facility] [place] Height: 187.96 cm Weight: 71.67 kg BSA: 1.97 m2 Heart Rate: bpm BP: 117 / 69 mmHg Volunteer Services Director: VERNON Referring MD: Sharad Pennington MD Symptoms: chf Study Quality: Fair Conclusions: - The left ventricular systolic function is severely decreased. The visually estimated ejection fraction is between 25-30%. - Severe biatrial enlargement. - There is mild calcification of the aortic valve. - There is mild to moderate mitral valve regurgitation. - There is mild tricuspid valve regurgitation. - There is mild dilatation of the ascending aorta measuring 4.00 cm. Findings Left Ventricle Normal left ventricular cavity size. There is mildly increased left ventricular wall thickness. The left ventricular systolic function is severely decreased. The visually estimated ejection fraction is between 25 30%. There is severe global hypokinesis. Diastolic function is indeterminate on the basis of available data. Right Ventricle Normal right ventricular cavity size. There is low normal right ventricular systolic function. Atria Severe biatrial enlargement. Aortic Valve There is a normal trileaflet aortic valve. There is mild calcification of the aortic valve. There is no aortic valve stenosis. There is trace (trivial) aortic valve regurgitation. Mitral Valve There is mild anterior mitral leaflet thickening. There is mild mitral annular calcification. There is mild to moderate mitral valve regurgitation. There is no mitral valve stenosis. Pulmonic Valve The pulmonic valve was not well visualized. Tricuspid Valve Normal tricuspid valve structure. There is mild tricuspid valve regurgitation. The pulmonary artery systolic pressure is normal. Great Vessels There is mild dilatation of the ascending aorta measuring 4.00 cm. Venous The inferior vena cava is dilated and collapses greater than 50% with inspiration. Pericardium/Pleural There is no evidence of pericardial effusion. Prior Study Comparison Changes noted compared to prior study dated: 02/01/2020. Decrease in LVEF. Measurements 2D Linear Measurements IVSd: 1.09 0.6-0.9/0.6-1.0 cm LVIDd: 5.99 3.9-5.3/4.2-5.9 cm LVIDd Index: 3.04 2.4-3.2/2.2-3.1 cm/m2 LVIDs: 4.26 2.0-3.6 cm LVPWd: 1.09 0.7-1.1 cm Ao Root: 3.80 2.1-3.5 cm LA Diam: 4.60 2.7-3.8/3.0-4.0 cm LAIDs Index: 2.34 1.5-2.3 cm/m2 LV Mass: 343.63 67-162/88-224 g LV Mass Index: 174.43 43-95/49-115 g/m2 LVOT Diam: 2.60 3.0+(-)1.3 cm 2D Systolic Function EF 4C: 45.10 >55% EF 2C: 38.40 >55% EF BiP: 42.30 >55% Aortic Valve AoV Pk Robb: 1.23 AoV Mn Robb: 0.79 AoV VTI: 0.21 AoV Pk Grad: 6.00 Aov Mn Grad: 3.00 AMANDEEP Cont.VTI: 3.17 LVOT LVOT Pk Robb: 0.68 LVOT Mn Robb: 0.44 LVOT VTI: 0.12 LVOT Pk Grad: 2.00 LVOT Mn Grad: 1.00 LVOT Diam: 2.60 LVOT Area: 5.31 Right Ventricle TAPSE (mm): 1.73 Tricuspid Valve TR Pk Robb: 2.31 TR Pk Grad: 21.00 RA Press: 8.00 RVSP: 29.00 Great Vessels Aorta Ao Root-2D: 3.80 2.0-3.7 cm Ao Asc: 4.00 2.1-3.4 cm Ao Arch: 2.60 Updated in Other Vendor System with Status of Final Milo Solano MD electronically signed on 11/29/2020 4:40:44 PM with status of Final
--- NOTE | 2020-11-29 07:31 | HE.PHANOTE ---
Spoke to the nurse taking care of Scottie. She said she will check with him if someone is able to bring in his non-formulary medication. She will call the pharmacy back with an update. -Melissa Drake, PharmD [phone]
[2020-11-29] MEDS: Furosemide 40 MG/4 ML VIAL IVPUSH (08:43)
[2020-11-29] MEDS: Digoxin 0.25 MG TABLET PO (08:43)
[2020-11-29] MEDS: Multivitamin TABLET 1 TAB PO (08:44)
[2020-11-29] MEDS: 0.9 % Sodium Chloride Flush 3 ML SYRINGE IVFLUSH ×2 (08:44→15:14)
[2020-11-29] MEDS: Metoprolol Succinate ER 100 MG TAB.ER.24H PO (08:44)
[2020-11-29] MEDS: Nicotine 14 MG PATCH.TD24 TRANSDERMA (08:44)
[2020-11-29] MEDS: Folic Acid 1 MG TABLET PO (08:44)
--- NOTE | 2020-11-29 10:35 | PC.NURSE ---
pt refuses bed alarm, attempted to educated, pt still refusing
[2020-11-29] MEDS: dilTIAZem HCL 30 MG TABLET PO (11:25)
--- NOTE | 2020-11-29 13:22 | MHC.CM.PN ---
Male80 DX COPD Per MD rounds anticipate dc 1-2 days. DP is home no services. Family will provide transportation home. CM will follow.
--- NOTE | 2020-11-29 16:16 | HO.PM.IMPN ---
Subjective Subjective Date of Service: 11/29/20 Interval History: the patient was seen and evaluated this morning Laying in bed, feels better or ready Shortness of breath improving, still reporting coughing and mucus Denies any fever, chills or chest pain No reported other overnight events. Systemic review: No fever, chills or weakness No chest pain, palpitation Dyspnea on exertion, productive cough No abdominal pain, nausea or vomiting No urinary symptoms No any rash or wounds Physical Exam Vital Signs: Vital Signs: Last Vital Signs Temp 97.9 F 11/29/20 15:11 Pulse 96 11/29/20 15:48 Resp 20 11/29/20 15:11 BP 141/78 H 11/29/20 15:11 Pulse Ox 94 11/29/20 15:11 Body Mass Index 20.3 Const: Other: Constitutional : Alert, oriented, not in distress Neck : Normal inspection, Supple Cardiovascular : RRR, S1 S2, no lower extremity edema Respiratory : Fair bilateral air entry, no crackles, fine expiratory wheezes or rhonchi Gastrointestinal: soft, lax, Normal bowel sounds, Non tender Skin : Warm/Dry, No rash Neurological : Alert & oriented x3, No focal deficit Objective Data Current Medications Generic Name Dose Route Start Last Admin Trade Name Freq PRN Reason Stop Dose Admin Acetaminophen 650 mg 11/28/20 13:18 Acetaminophen 325 Mg Tablet PO Q6H PRN Pain, Mild (Pain Scale 1-3) Albuterol/Ipratropium 3 ml 11/28/20 13:18 Albuterol/Iprat 2.5/0.5mg 3 Ml Ampul.Neb INHALE Q4H PRN Shortness of Breath Atorvastatin Calcium 40 mg 11/28/20 21:00 11/28/20 22:28 Atorvastatin Calcium 40 Mg Tablet PO 40 mg BEDTIME RADHA Administration Digoxin 0.25 mg 11/29/20 09:00 11/29/20 08:43 Digoxin 0.25 Mg Tablet PO 0.25 mg DAILY RADHA Administration Folic Acid 1 mg 11/29/20 09:00 11/29/20 08:44 Folic Acid 1 Mg Tablet PO 1 mg DAILY RADHA Administration Furosemide 40 mg 11/29/20 09:00 11/29/20 08:43 Furosemide 40 Mg/4 Ml Vial IVPUSH 40 mg DAILY RADHA Administration Protocol Doxycycline Hyclate 100 mg/ 250 mls @ 166.67 mls/hr 11/28/20 14:00 11/29/20 15:14 Sodium Chloride IV 166.67 mls/hr Q12H RADHA Administration Levalbuterol HCl 1.25 mg 11/29/20 12:00 11/29/20 15:46 Levalbuterol Hcl 1.25 Mg/0.5 Ml Vial.Neb INHALE 1.25 mg RQ4H WHILE AWAKE RADHA Administration Methylprednisolone Sodium Succinate 40 mg 11/28/20 14:00 11/29/20 15:14 Methylprednisolone Sod Succ 40 Mg/Ml Vial IVPUSH 40 mg Q12H RADHA Administration Metoprolol Succinate 100 mg 11/29/20 09:00 11/29/20 08:44 Metoprolol Succinate Er 100 Mg Tab.Er.24h PO 100 mg DAILY RADHA Administration Protocol Multivitamins/Vitamin C 1 tab 11/29/20 09:00 11/29/20 08:44 Multivitamin Tablet PO 1 tab DAILY RADHA Administration Nicotine 14 mg 11/28/20 16:30 11/29/20 08:44 Nicotine 14 Mg Patch.Td24 TRANSDERMA 14 mg DAILY RADHA Administration Pt Own Med ( 40 each 11/30/20 09:00 11/29/20 12:26 Febuxostat 40 Mg PO 40 each Tablet) DAILY RADHA Administration Pharmacy Consult 1 each 11/28/20 11:03 Consult Rx Perform Med Rec MISCELLANE ONCE PRN Consult order Sodium Chloride 3 ml 11/28/20 16:00 11/29/20 15:14 0.9 % Sodium Chloride Flush 3 Ml Syringe IVFLUSH 3 ml QSHIFT RADHA Administration Labs CBC & Chem 7: 11/29/20 04:27 11/29/20 04:20 Labs: Laboratory Results - last 24 hr 11/29/20 11/29/20 11/29/20 04:20 04:27 04:27 MCV 99.4 H MCH 32.5 MCHC 32.7 RDW 14.4 Plt Count 151 L MPV 11.7 Absolute Nucleated RBC 0.000 Nucleated RBC % (auto) 0.0 PT INR Anion Gap 13 Estim Creat Clear Calc 54.5 Estimated GFR > 60 Fasting Glucose 156 H D Calcium 8.8 Magnesium 1.9 B-Natriuretic Peptide 833 H 11/29/20 04:27 MCV MCH MCHC RDW Plt Count MPV Absolute Nucleated RBC Nucleated RBC % (auto) PT 51.2 H INR 4.4 H Anion Gap Estim Creat Clear Calc Estimated GFR Fasting Glucose Calcium Magnesium B-Natriuretic Peptide Microbiology Microbiology Results: Microbiology 11/28/20 09:30 Blood Culture - Preliminary Blood - Venous No growth after 24 hours. 11/28/20 09:30 Blood Culture - Preliminary Blood - Venous No growth after 24 hours. Assessment and Plan (1) Acute exacerbation of CHF (congestive heart failure): Status: Acute (2) Atrial fibrillation with rapid ventricular response: Status: Acute Assessment and Plan: 80M presented with sob and cough acute bronchitis/copd exacerbation Continue steroids Change nebulizers to Xopenex Continue doxy acute on chronic diastolic chf iv lasix, monitor lytes, check echo does not appear significantly overloaded, can likely change to oral tomorrow AFib with RVR Heart rate went up to 130s Continue dig, toprol Give IV Cardizem on coumadin, (currently held for INR 4.4), goal ine 2-3, monitor CAD statin, coumadin moderate protein calorie malnutrition po intake encouraged Quality Stroke Does the patient have a stroke diagnosis?: No VTE Prior VTE?: No VTE Risk Level:: Medical - moderate - high VTE Device Contraindication: Treatment Not Indicated VTE Drug Contraindication: N/A - Med Ordered
[2020-11-29] MEDS: Atorvastatin Calcium 40 MG TABLET PO (21:29)
[2020-11-30] VITALS (11 sets, daily range): BP systolic 106–137; BP diastolic 67–88; PULSE 84–118; RESP 16–20; TEMP 36.4–36.9; O2SAT 94–98
--- NOTE | 2020-11-30 | ECG_ITS ---
Test Reason : AFIB Blood Pressure : / mmHG Vent. Rate : 096 BPM Atrial Rate : 277 BPM P-R Int : 000 ms QRS Dur : 162 ms QT Int : 380 ms P-R-T Axes : 000 -86 038 degrees QTc Int : 480 ms Atrial fibrillation Right bundle branch block Left anterior fascicular block Bifascicular block Abnormal ECG When compared with ECG of 28-NOV-2020 07:33, No significant changes seen Referred By: Marcos Pemberton Electronically Signed By:SYLVIA JULES
[2020-11-30] MEDS: 0.9 % Sodium Chloride Flush 3 ML SYRINGE IVFLUSH ×3 (00:04→21:27)
[2020-11-30] MEDS: methylPREDNISolone Sod Succ 40 MG/ML VIAL IVPUSH (02:13)
[2020-11-30] MEDS: Doxycycline Hyclate 100 MG in 0.9 % Sodium Chloride 250 ML 166.7 MG IV (02:13)
[2020-11-30 07:19] LABS: Hematocrit 33.4 % (42-52); Hemoglobin 11.1 g/dl (14.0-18.0); Mean Corpuscular HGB Conc 33.2 g/dl (31.0-36.0); Mean Corpuscular Hemoglobin 32.5 pg (27.0-33.0); Mean Corpuscular Volume 97.7 fL (80-98); Mean Platelet Volume 11.8 fL (9.4-12.4); Platelet Count 157 X10*3/uL (160-400); Red Blood Count 3.42 X10*6/uL (4.60-5.80); Red Cell Distribution Width 14.3 % (11.0-16.0); White Blood Count 8.3 X10*3/uL (4.8-10.8)
[2020-11-30 07:22] LABS: INTERNATIONAL NORM RATIO 4.9 (0.9-1.1); Prothrombin Time 57.8 SEC (9.9-13.0)
[2020-11-30 07:47] LABS: Anion Gap 15 (12-20); Blood Urea Nitrogen 52 mg/dL (9-16); Calcium 8.5 mg/dL (8.4-10.2); Carbon Dioxide 28 mmol/L (22-29); Chloride 102 mmol/L (96-108); Creatinine Clr Calc Pharmacy 59.5; Estimated Glomerular Filt Rate > 60; Glucose Random 195 mg/dL (60-115); Sodium 141 mmol/L (135-145)
[2020-11-30] MEDS: Folic Acid 1 MG TABLET PO (08:49)
[2020-11-30] MEDS: Furosemide 40 MG TABLET PO (08:49)
[2020-11-30] MEDS: Metoprolol Succinate ER 100 MG TAB.ER.24H PO (08:49)
[2020-11-30] MEDS: Digoxin 0.25 MG TABLET PO (08:49)
[2020-11-30] MEDS: Multivitamin TABLET 1 TAB PO (08:49)
[2020-11-30] MEDS: Nicotine 14 MG PATCH.TD24 TRANSDERMA (08:50)
--- NOTE | 2020-11-30 11:41 | P.DS_ITS ---
DS: Providers Provider Date of Service: 11/30/20 Date of admission: 11/28/20 15:00 Primary care physician: Ben Durham MD DS: Diagnosis Discharge Diagnosis (1) Acute exacerbation of CHF (congestive heart failure): Status: Acute (2) Atrial fibrillation with rapid ventricular response: Status: Acute (3) Bronchitis: Status: Acute (4) Acute on chronic combined systolic and diastolic congestive heart failure: Status: Acute DS: Medications Discharge Medications Home Medications: Home Medications Medication Instructions Recorded Confirmed atorvastatin 40 mg tablet 40 mg PO BEDTIME 07/10/20 11/28/20 calcium carbonate 600 mg (1,500 1 tab PO DAILY 07/10/20 11/28/20 mg)-vitamin D3 200 unit tablet multivitamin 1 tab PO DAILY 07/10/20 11/28/20 nicotine 14 mg/24 hr daily 1 patch TRANSDERMAL DAILY 07/10/20 11/28/20 transdermal patch vitamins A,C,[id number]-duxi-ufezlw 14,320 1 cap PO DAILY 07/10/20 11/28/20 unit-226 mg-200 unit capsule (PreserVision AREDS) warfarin 1 mg tablet 1 mg PO DAILY tab 08/15/20 11/27/20 acetaminophen 650 mg 650 mg PO Q12H PRN 11/28/20 11/28/20 tablet,extended release warfarin 1 mg tablet 1 mg PO SUWE@1500 11/28/20 11/28/20 warfarin 2 mg tablet 2 mg PO MOTUTHFRSA@1500 11/28/20 11/28/20 Previous Rx's Medication Instructions Recorded metoprolol succinate 100 mg 100 mg PO DAILY 60 Days #60 tab 08/22/20 tablet,extended release 24 hr furosemide 40 mg tablet (Lasix) 40 mg PO DAILY #60 tab 10/08/20 potassium chloride 20 mEq 20 meq PO DAILY #90 tab 10/13/20 tablet,extended release(part/cryst) folic acid 1 mg tablet 1 mg PO DAILY 90 Days #90 tab 10/17/20 febuxostat 40 mg tablet 40 mg PO DAILY #30 tab 11/20/20 lidocaine 5 % topical patch 1 patch TOPICAL DAILY #15 ea 11/25/20 digoxin 250 mcg (0.25 mg) tablet 250 mcg PO DAILY #30 tab 11/27/20 albuterol sulfate 90 mcg/actuation 2 puff INHALATION Q6H PRN #6.7 g 11/30/20 aerosol inhaler (Ventolin HFA) doxycycline monohydrate 100 mg 100 mg PO BID #4 cap 11/30/20 capsule prednisone 20 mg tablet 40 mg PO DAILY #4 tab 11/30/20 DS: Summary Hospital Course Hospital Course: Admission note HPI 80M presented with 2 days of cough and sob with productive yellow sputum. patient has history of copd, chronic diastolic chf, lung ca, chronic afib on coumadin, CAD. reports chills, no sick contact, denies orthopnea, le edema. labs significant for increased bnp - 700 (previous was 232),? cxr showed subtle bilateral infrahilar groundglass opacities. patient was given lasix and rocephin. Hospital course Patient was admitted to the hospital for evaluation of difficulty breathing. An x-ray showed evidence of ground-glass opacity will elevated BNP level. Treated with IV antibiotics with usage of steroids and doxycycline for bronchitis pictu re. Echo done and showed decreased ejection fraction to 25% with global hypokinesia. Evaluated by Cardiology team who recommended addition of metoprolol XL at bedtime as well than to follow-up as outpatient for further evaluation and workup. Patient improved significantly and was able to ambulate on the room air with the help of the nurses with no reported dyspnea. INR was noted to be elevated of 3.8, And increased to 5.4 so warfarin was held during the hospital stay and to be resumed the next day of discharge. To be discharged home on metoprolol XL. Advised to monitor weight and to eat low-sodium diet. To follow up with Cardiology as outpatient Time Spent with Patient Time attestation: Total time spent providing and/or coordinating discharge services: Discharge coordination time: Greater than 30 minutes Quality: Stroke Does the patient have a stroke diagnosis?: No Physical Exam Vital Signs: Vital Signs: Last Vital Signs Temp 97.5 F 11/30/20 08:00 Pulse 93 11/30/20 08:20 Resp 20 11/30/20 08:00 BP 137/88 11/30/20 08:00 Pulse Ox 97 11/30/20 08:00 Body Mass Index 20.3 Const: Other: Constitutional : Alert, oriented, not in distress Neck : Normal inspection, Supple Cardiovascular : Irregularly irregular, S1 S2, no lower extremity edema Respiratory : Fair bilateral air entry, no crackles, no wheezes or rhonchi Gastrointestinal: soft, lax, Normal bowel sounds, Non tender Skin : Warm/Dry, No rash Neurological : Alert & oriented x3, No focal deficit DS: Data Data Completed and Pending Labs on day of discharge: Laboratory Results - last 24 hr 11/30/20 11/30/20 11/30/20 06:10 06:10 06:10 WBC 8.3 RBC 3.42 L Hgb 11.1 L Hct 33.4 L MCV 97.7 MCH 32.5 MCHC 33.2 RDW 14.3 Plt Count 157 L MPV 11.8 Absolute Nucleated RBC 0.000 Nucleated RBC % (auto) 0.0 PT 57.8 H INR 4.9 H Sodium 141 Potassium 4.0 Chloride 102 Carbon Dioxide 28 Anion Gap 15 BUN 52 H Creatinine 0.99 Estim Creat Clear Calc 59.5 Estimated GFR > 60 Random Glucose 195 H D Calcium 8.5 Preliminary micro results at discharge 11/28/20 09:30 Blood Culture - Preliminary Blood - Venous No growth after 24 hours. 11/28/20 09:30 Blood Culture - Preliminary Blood - Venous No growth after 24 hours. Discharge Plan Discharge Patient Disposition: Home, Self-Care Discharge Diagnosis: CHF exacerbation COPD exacerbation Referrals: Ben Durham MD [Primary Care Provider] - 1 Week Discharge Medications: New prednisone 20 mg tablet 40 mg PO DAILY Qty: 4 RF: 0 albuterol sulfate [Ventolin HFA] 90 mcg/actuation HFA aerosol inhaler 2 puff inhalation Q6H PRN (Reason: shortness of breath or wheezing) Qty: 6.7 RF: 0 metoprolol succinate 25 mg Tablet Extended Release 24 Hr 25 mg PO BEDTIME Qty: 30 RF: 0 Continued furosemide [Lasix] 40 mg tablet 40 mg PO DAILY Qty: 60 RF: 0 potassium chloride 20 mEq tablet,ER particles/crystals 20 meq PO DAILY Qty: 90 RF: 1 folic acid 1 mg tablet 1 mg PO DAILY 90 Days Qty: 90 RF: 1 febuxostat 40 mg tablet 40 mg PO DAILY Qty: 30 RF: 5 multivitamin Tablet 1 tab PO DAILY RF: 0 nicotine 14 mg/24 hr Patch 24 Hour 1 patch TRANSDERMAL DAILY RF: 0 calcium carbonate-vitamin D3 600 mg(1,500mg) -200 unit Tablet 1 tab PO DAILY RF: 0 PreserVision AREDS 14,320-226-200 [id number] Capsule 1 cap PO DAILY RF: 0 atorvastatin 40 mg tablet 40 mg PO BEDTIME RF: 0 acetaminophen 650 mg Tablet Extended Release 650 mg PO Q12H PRN (Reason: Pain) RF: 0 warfarin 2 mg Tablet 2 mg PO MOTUTHFRSA@1500 RF: 0 warfarin 1 mg Tablet 1 mg PO SUWE@1500 RF: 0 lidocaine 5 % adhesive patch,medicated 1 patch topical DAILY Qty: 15 RF: 0 warfarin 1 mg tablet 1 mg PO DAILY RF: 0 metoprolol succinate 100 mg tablet extended release 24 hr 100 mg PO DAILY 60 Days Qty: 60 RF: 3 digoxin 250 mcg (0.25 mg) tablet 250 mcg PO DAILY Qty: 30 RF: 5 Discharge Orders: Discharge Order (Routine); Ordered 12/02/20 Ordered By: Marcos Pemberton Diet: advance to usual diet and low salt diet Activity on Discharge: As tolerated Stand Alone Forms: Patient Portal Discharge page Care Plan Goals: Read below Health Concerns: Read below Plan of Treatment: A you were admitted to the hospital for evaluation of difficulty breathing. Treated for COPD and heart failure exacerbations with diuresis and nebulizers with good response over the course of hospital stay. An echo was done showing decrease heart function to 25%. Evaluated by Cardiology team who would like to see you in the office for further evaluation and workup Assessment: Continue your current home medications Start albuterol inhaler as needed start metoprolol 25 mg XL at bedtime Monitor your weight and eat low salt diet to follow up with Cardiology as outpatient
--- NOTE | 2020-11-30 15:07 | HO.PM.IMPN ---
Subjective Subjective Date of Service: 11/30/20 Interval History: The patient was seen and evaluated this morning Laying in bed, feels better or ready Shortness of breath improving, still reporting coughing and mucus Denies any fever, chills or chest pain No reported other overnight events. Systemic review: No fever, chills or weakness Reporting chest discomfort on occasions, no edema Mild Dyspnea on exertion, no cough No abdominal pain, nausea or vomiting No urinary symptoms No any rash or wounds Physical Exam Vital Signs: Vital Signs: Last Vital Signs Temp 98.1 F 11/30/20 14:52 Pulse 100 11/30/20 14:52 Resp 20 11/30/20 14:52 BP 112/76 11/30/20 14:52 Pulse Ox 98 11/30/20 14:52 Body Mass Index 20.3 Const: Other: Constitutional : Alert, oriented, not in distress Neck : Normal inspection, Supple Cardiovascular : RRR, S1 S2, no lower extremity edema Respiratory : Fair bilateral air entry, no crackles, fine expiratory wheezes or rhonchi Gastrointestinal: soft, lax, Normal bowel sounds, Non tender Skin : Warm/Dry, No rash Neurological : Alert & oriented x3, No focal deficit Objective Data Current Medications Generic Name Dose Route Start Last Admin Trade Name Freq PRN Reason Stop Dose Admin Acetaminophen 650 mg 11/28/20 13:18 Acetaminophen 325 Mg Tablet PO Q6H PRN Pain, Mild (Pain Scale 1-3) Albuterol/Ipratropium 3 ml 11/28/20 13:18 Albuterol/Iprat 2.5/0.5mg 3 Ml Ampul.Neb INHALE Q4H PRN Shortness of Breath Atorvastatin Calcium 40 mg 11/28/20 21:00 11/29/20 21:29 Atorvastatin Calcium 40 Mg Tablet PO 40 mg BEDTIME RADHA Administration Digoxin 0.25 mg 11/29/20 09:00 11/30/20 08:49 Digoxin 0.25 Mg Tablet PO 0.25 mg DAILY RADHA Administration Folic Acid 1 mg 11/29/20 09:00 11/30/20 08:49 Folic Acid 1 Mg Tablet PO 1 mg DAILY RADHA Administration Furosemide 40 mg 11/30/20 09:00 11/30/20 08:49 Furosemide 40 Mg Tablet PO 40 mg DAILY RADHA Administration Protocol Doxycycline Hyclate 100 mg/ 250 mls @ 166.67 mls/hr 11/28/20 14:00 11/30/20 04:02 Sodium Chloride IV Infused Q12H RADHA Infusion Levalbuterol HCl 1.25 mg 11/29/20 12:00 11/30/20 12:02 Levalbuterol Hcl 1.25 Mg/0.5 Ml Vial.Neb INHALE 1.25 mg RQ4H WHILE AWAKE RADHA Administration Lisinopril 2.5 mg 11/30/20 12:15 11/30/20 13:01 Lisinopril 2.5 Mg Tablet PO 2.5 mg DAILY RADHA Administration Protocol Metoprolol Succinate 100 mg 11/29/20 09:00 11/30/20 08:49 Metoprolol Succinate Er 100 Mg Tab.Er.24h PO 100 mg DAILY RADHA Administration Protocol Multivitamins/Vitamin C 1 tab 11/29/20 09:00 11/30/20 08:49 Multivitamin Tablet PO 1 tab DAILY RADHA Administration Nicotine 14 mg 11/28/20 16:30 11/30/20 08:50 Nicotine 14 Mg Patch.Td24 TRANSDERMA 14 mg DAILY RADHA Administration Pt Own Med ( 40 each 11/30/20 09:00 11/30/20 08:57 Febuxostat 40 Mg PO 40 each Tablet) DAILY [facility] Administration Pharmacy Consult 1 each 11/28/20 11:03 Consult Rx Perform Med Rec MISCELLANE ONCE PRN Consult order Polyethylene Glycol 17 gm 11/30/20 09:00 11/30/20 08:50 Polyethylene Glycol 3350 17 Gm Powd.Pack PO 17 gm DAILY RADHA Administration Prednisone 40 mg 12/01/20 09:00 Prednisone 20 Mg Tablet PO DAILY [facility] Sodium Chloride 3 ml 11/28/20 16:00 11/30/20 08:55 0.9 % Sodium Chloride Flush 3 Ml Syringe IVFLUSH 3 ml QSHIFT [facility] Administration Labs CBC & Chem 7: 11/30/20 06:10 11/30/20 06:10 Labs: Laboratory Results - last 24 hr 11/30/20 11/30/20 11/30/20 06:10 06:10 06:10 MCV 97.7 MCH 32.5 MCHC 33.2 RDW 14.3 Plt Count 157 L MPV 11.8 Absolute Nucleated RBC 0.000 Nucleated RBC % (auto) 0.0 PT 57.8 H INR 4.9 H Anion Gap 15 Estim Creat Clear Calc 59.5 Estimated GFR > 60 Random Glucose 195 H D Calcium 8.5 Microbiology Microbiology Results: Microbiology 11/28/20 09:30 Blood Culture - Preliminary Blood - Venous No growth after 48 hours. 11/28/20 09:30 Blood Culture - Preliminary Blood - Venous No growth after 48 hours. Assessment and Plan (1) Atrial fibrillation with rapid ventricular response: Status: Acute (2) Acute exacerbation of CHF (congestive heart failure): Status: Acute (3) Systolic CHF, acute: Status: Acute Assessment and Plan: 80M presented with sob and cough acute bronchitis/copd exacerbation Changed to p.o. prednisone Change nebulizers to Xopenex Continue doxy day 3 acute systolic chf Echo showed EF of 25-30% with global hypokinesia Repeat EKG Continue Lasix Start small dose lisinopril Pending cardiology consult AFib with RVR Better controlled today Continue dig, toprol To use as needed IV Cardizem on coumadin, (currently held for INR 4.4), goal ine 2-3, monitor Supratherapeutic INR INR of 4.9 today Continue to hold warfarin No bleeding, no need to use vitamin K CAD statin, coumadin moderate protein calorie malnutrition po intake encouraged Quality Stroke Does the patient have a stroke diagnosis?: No VTE Prior VTE?: No VTE Risk Level:: Medical - moderate - high VTE Device Contraindication: Treatment Not Indicated VTE Drug Contraindication: N/A - Med Ordered
[2020-11-30] MEDS: Doxycycline Hyclate 100 MG in 0.9 % Sodium Chloride 250 ML 166.67 MG IV (15:14)
--- NOTE | 2020-11-30 16:47 | PC.NURSE ---
Skin assessment completed today. Patient has scattered bruising on bilateral upper and lower extremities which where noted on admission.
[2020-11-30] MEDS: Atorvastatin Calcium 40 MG TABLET PO (21:27)
[2020-12-01] VITALS (13 sets, daily range): BP systolic 106–154; BP diastolic 66–81; PULSE 69–110; RESP 15–18; TEMP 36.3–37; O2SAT 95–97
[2020-12-01] MEDS: Doxycycline Hyclate 100 MG in 0.9 % Sodium Chloride 250 ML 166.67 MG IV (01:55)
[2020-12-01 06:28] LABS: Prothrombin Time 65.9 SEC (9.9-13.0)
[2020-12-01 06:34] LABS: B Type Natriuretic Peptide 460 pg/mL (<100)
[2020-12-01 06:37] LABS: INTERNATIONAL NORM RATIO 5.6 (0.9-1.1)
[2020-12-01 06:41] LABS: Anion Gap 11 (12-20); Blood Urea Nitrogen 55 mg/dL (9-16); Calcium 8.6 mg/dL (8.4-10.2); Carbon Dioxide 29 mmol/L (22-29); Chloride 107 mmol/L (96-108); Creatinine Clr Calc Pharmacy 54.5; Estimated Glomerular Filt Rate > 60; Glucose Random 113 mg/dL (60-115); Potassium 4.3 mmol/L (3.3-5.1); Sodium 143 mmol/L (135-145)
[2020-12-01] MEDS: Furosemide 40 MG TABLET PO (07:36)
[2020-12-01] MEDS: Folic Acid 1 MG TABLET PO (07:39)
[2020-12-01] MEDS: predniSONE 20 MG TABLET 40 MG PO (07:40)
[2020-12-01] MEDS: Metoprolol Succinate ER 100 MG TAB.ER.24H PO (07:41)
[2020-12-01] MEDS: Multivitamin TABLET 1 TAB PO (07:42)
[2020-12-01] MEDS: Digoxin 0.25 MG TABLET PO (07:44)
[2020-12-01] MEDS: Nicotine 14 MG PATCH.TD24 TRANSDERMA (07:45)
[2020-12-01] MEDS: 0.9 % Sodium Chloride Flush 3 ML SYRINGE IVFLUSH ×3 (07:47→20:28)
--- NOTE | 2020-12-01 11:50 | P.CONCA_ITS ---
History of Present Illness History of Present Illness Date of Service: 12/01/20 Consult reason: atrial fibrillation Chief complaint: COPD Narrative: This is a cardiology consultation regarding atrial fibrillation. He has a history of chronic atrial fibrillation that is being managed with rate control. Based on the last office note by Dr. Hernández, it appears that his digoxin dose has actually been increased from 125 to 250 mcg daily. Otherwise, he is also on beta-blockers at metoprolol ER 100 mg daily. Patient states that this has been increased recently from 50 mg. He is also on anticoagulation with warfarin. He does have lung cancer in the right upper lobe. He also has severe emphysema and multiple medical comorbidities. Per last thoracic note, he u nderwent which resection with extensive anymore lysis and mediastinal lymphadenectomy in 2020. Current admission is for constant chest pain on the left side that sounds more pleuritic in nature. Also sensation of congestion in his chest. Shortness of breath. He was thought to have congestive heart failure admitted. Currently, he states that he is actually feeling much better and less congested. Shortness of breath is more as a baseline. Review of Systems Review of Systems: Yes all other systems are reviewed and are negative Cardiovascular: Cardiovascular: Reports as per HPI, Reports no additional cardiovascular complaints, Denies acrocyanosis, Denies cool extremities, Denies painful fingertips, Reports chest pain, Reports chest pain at rest, Denies di aphoresis, Denies syncope, Denies irregular heart rhythm, Denies claudication, Denies leg edema, Denies lightheadedness, Denies palpitations and Reports dyspnea Respiratory: Respiratory: Reports cough and Reports dyspnea Neurologic: Denies syncope Endocrine: Endocrine: Denies palpitations [facility] Past Medical History Medical History (HFpEF) heart failure with preserved ejection fraction Afib Back pain Benign essential hypertension Bilateral lower extremity edema CAD (coronary artery disease) Chronic atrial fibrillation COPD (chronic obstructive pulmonary disease) Gout History of lung cancer HLD (hyperlipidemia) Hypertension Lumbar degenerative disc disease Lung cancer Neuropathy Osteoarthritis Osteoarthritis of knees, bilateral Physical deconditioning Pure hypercholesterolemia Smoker Type 2 diabetes mellitus with other diabetic kidney complication Vitamin D deficiency Family History Family History Mother No problems noted. Family history: reviewed and not pertinent Surgical History Surgical History History of cardiac cath (~02/2016) History of lung surgery (~2013) History of lung surgery (~10/2019) Social History Social History Household Members: None Housing: House Do you presently have visiting nurse or other home services: No Alcohol intake: never Patient Tobacco Use Status: Current everyday Tobacco user Tobacco use type: Cigarette Cigarette Packs Per Day: 0.5 Cigarettes Per Day: 10.0 Years Smoked: 50 Smoked in Last 30 Days: Yes Patient Interested in Nicotine Replacement: Yes Patient Given Instructions on How to Stop Smoking: Yes Date Education Initiated: 11/29/20 Second Hand Smoke Exposure: No Use of substances other than those prescribed or required for medical reasons: No Currently Displaying Signs/Symptoms of Drug Intoxication Withdrawal: No Have you been hit, kicked, punched, or otherwise hurt by someone within the past year? If so, by whom?: No Do you feel safe in your current relationship?: No Current Relationship Is there a partner from a previous relationship who is making you feel unsafe now?: No [facility] Practices: [facility] Advance Directives: Yes Advance Directives Information Provided: No Advance Directives on File: No Advance Directives Date on File: 11/29/20 Do you have thoughts of harming others: None Do you have a plan to hurt others: No Plan Recently lost weight without trying: No How much weight loss: Unsure Eating poorly because of decreased appetite: No Nutrition screen score: 2 Nutrition Risks: No Nutritional Risk Poor oral hygiene: No service: No Current occupational status: retired [employer] Allergies Allergy/AdvReac Type Severity Reaction Status Date / Time No Known Allergies Allergy Unknown UNKNOWN Verified 11/25/20 09:55 [NO KNOWN ALLERGIES] Active Medications: Current Medications Generic Name Dose Route Start Last Admin Trade Name Freq PRN Reason Stop Dose Admin Acetaminophen 650 mg 11/28/20 13:18 Acetaminophen 325 Mg Tablet PO Q6H PRN Pain, Mild (Pain Scale 1-3) Albuterol/Ipratropium 3 ml 11/28/20 13:18 Albuterol/Iprat 2.5/0.5mg 3 Ml Ampul.Neb INHALE Q4H PRN Shortness of Breath Atorvastatin Calcium 40 mg 11/28/20 21:00 11/30/20 21:27 Atorvastatin Calcium 40 Mg Tablet PO 40 mg BEDTIME RADHA Administration Digoxin 0.25 mg 11/29/20 09:00 12/01/20 07:44 Digoxin 0.25 Mg Tablet PO 0.25 mg DAILY RADHA Administration Folic Acid 1 mg 11/29/20 09:00 12/01/20 07:39 Folic Acid 1 Mg Tablet PO 1 mg DAILY RADHA Administration Furosemide 40 mg 11/30/20 09:00 12/01/20 07:36 Furosemide 40 Mg Tablet PO 40 mg DAILY RADHA Administration Protocol Levalbuterol HCl 1.25 mg 11/29/20 12:00 12/01/20 11:14 Levalbuterol Hcl 1.25 Mg/0.5 Ml Vial.Neb INHALE 1.25 mg RQ4H WHILE AWAKE RADHA Administration Lisinopril 2.5 mg 11/30/20 12:15 12/01/20 07:43 Lisinopril 2.5 Mg Tablet PO 2.5 mg DAILY RADHA Administration Protocol Metoprolol Succinate 100 mg 11/29/20 09:00 12/01/20 07:41 Metoprolol Succinate Er 100 Mg Tab.Er.24h PO 100 mg DAILY RADHA Administration Protocol Multivitamins/Vitamin C 1 tab 11/29/20 09:00 12/01/20 07:42 Multivitamin Tablet PO 1 tab DAILY RADHA Administration Nicotine 14 mg 11/28/20 16:30 12/01/20 07:45 Nicotine 14 Mg Patch.Td24 TRANSDERMA 14 mg DAILY RADHA Administration Pt Own Med ( 40 each 11/30/20 09:00 12/01/20 07:45 Febuxostat 40 Mg PO 40 each Tablet) DAILY RADHA Administration Pharmacy Consult 1 each 11/28/20 11:03 Consult Rx Perform Med Rec MISCELLANE ONCE PRN Consult order Polyethylene Glycol 17 gm 11/30/20 09:00 11/30/20 08:50 Polyethylene Glycol 3350 17 Gm Powd.Pack PO 17 gm DAILY RADHA Administration Prednisone 40 mg 12/01/20 09:00 12/01/20 07:40 Prednisone 20 Mg Tablet PO 40 mg DAILY RADHA Administration Sodium Chloride 3 ml 11/28/20 16:00 12/01/20 07:47 0.9 % Sodium Chloride Flush 3 Ml Syringe IVFLUSH 3 ml QSHIFT RADHA Administration Home Medications Medication Instructions Recorded Confirmed Last Taken Type atorvastatin 40 mg tablet 40 mg PO BEDTIME 07/10/20 11/28/20 11/27/20 History calcium carbonate 600 mg (1,500 1 tab PO DAILY 07/10/20 11/28/20 11/28/20 History mg)-vitamin D3 200 unit tablet multivitamin 1 tab PO DAILY 07/10/20 11/28/20 11/28/20 History nicotine 14 mg/24 hr daily 1 patch TRANSDERMAL DAILY 07/10/20 11/28/20 11/27/20 History transdermal patch vitamins A,C,L-ebeq-ogsvtr 14,320 1 cap PO DAILY 07/10/20 11/28/20 11/28/20 History unit-226 mg-200 unit capsule (PreserVision AREDS) warfarin 1 mg tablet 1 mg PO DAILY tab 08/15/20 11/27/20 Unknown History acetaminophen 650 mg 650 mg PO Q12H PRN 11/28/20 11/28/20 11/27/20 History tablet,extended release warfarin 1 mg tablet 1 mg PO SUWE@1500 11/28/20 11/28/20 11/27/20 History warfarin 2 mg tablet 2 mg PO MOTUTHFRSA@1500 11/28/20 11/28/20 11/27/20 History Physical Exam Vital Signs: Vital Signs: Last Vital Signs Temp 97.5 F 12/01/20 10:55 Pulse 95 12/01/20 11:15 Resp 18 12/01/20 10:55 BP 125/80 12/01/20 10:55 Pulse Ox 95 12/01/20 10:55 Body Mass Index 20.3 Const: General: cooperative and no acute distress HENMT: Other: Unremarkable Neck: Neck: Yes normal visual inspection Chest: Chest palpation & inspection: normal inspection of the chest Resp: Auscultation: clear to auscultation bilaterally, no crackles and no wheezes Cardio: Jugular venous distension: no JVD Palpation: normal PMI Heart sounds: S1 normal heart sound present, S2 normal heart sound present, no gallops, no murmurs and no rubs GI: Palpation (GI): Soft to palpation Back/Spine/Pelvis: Other: unremarkable Skin: General skin exam: no rashes or lesions noted Neuro: Cranial nerves: Yes Other cranial nerve findings present Extrem: General: Yes no clubbing, cyanosis or edema Psych: Mental Status: other Results Labs and Meds Result diagrams: 11/30/20 06:10 12/01/20 05:36 Lab results: Laboratory Results - last 24 hr 12/01/20 12/01/20 12/01/20 05:36 05:36 05:36 PT 65.9 H INR 5.6 H* Sodium 143 Potassium 4.3 Chloride 107 Carbon Dioxide 29 Anion Gap 11 L BUN 55 H Creatinine 1.08 Estim Creat Clear Calc 54.5 Estimated GFR > 60 Random Glucose 113 D Calcium 8.6 B-Natriuretic Peptide 460 H ECG Interpretation: Admission EKG with atrial fibrillation at 96/Min. 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 Imaging Comment: Chest x-ray report reviewed. Subtle bilateral infrahilar ground-glass opacities. No consolidation or effusion. Postsurgical changes in the apical right upper zone. Cardio pericardial silhouette stable and normal vascularity. Assessment and Plan (1) Atrial fibrillation with rapid ventricular response: Status: Acute (2) Acute on chronic combined systolic and diastolic congestive heart failure: Status: Acute Cardiac BNP trend reviewed. In October it was 232. In the current admission it was 700. Went up to a 33 and today it is 460. Previously, it has gone too much higher levels. Troponins are 19.5 and 18.4. Overall, his symptoms are probably more pulmonary but cannot exclude active cardiac components. Clinically, he does not sound really in active heart failure. He is currently on Lasix 40 mg daily. Toprol-XL 100 mg daily. Digoxin 250 mcg daily. Blood pressure seems reasonable. We could add an additional 25 mg daily of Toprol-XL at nighttime for rate control. Will hold off lisinopril as he has the stated history of orthostatic hypotension per Dr. Hernández's note. We will follow up with you. Procedures Date of Service Date of Service: 12/01/20
--- NOTE | 2020-12-01 15:48 | HO.PM.IMPN ---
Subjective Subjective Date of Service: 12/01/20 Interval History: The patient was seen and evaluated this morning Laying in bed, feels better today Shortness of breath improving Heart rate better controlled but still running between 90s and 100s Denies any fever, chills or chest pain No reported other overnight events. Systemic review: No fever, chills or weakness Reporting chest discomfort on occasions, no edema Mild Dyspnea on exertion, no cough No abdominal pain, nausea or vomiting No urinary symptoms No any rash or wounds Physical Exam Vital Signs: Vital Signs: Last Vital Signs Temp 98 F 12/01/20 15:18 Pulse 110 H 12/01/20 15:21 Resp 15 12/01/20 15:18 BP 120/68 12/01/20 15:18 Pulse Ox 95 12/01/20 15:18 Body Mass Index 20.3 Const: Other: Constitutional : Alert, oriented, not in distress Neck : Normal inspection, Supple Cardiovascular : Irregularly irregular, S1 S2, no lower extremity edema Respiratory : Fair bilateral air entry, no crackles, no wheezes or rhonchi Gastrointestinal: soft, lax, Normal bowel sounds, Non tender Skin : Warm/Dry, No rash Neurological : Alert & oriented x3, No focal deficit Objective Data Current Medications Generic Name Dose Route Start Last Admin Trade Name Freq PRN Reason Stop Dose Admin Acetaminophen 650 mg 11/28/20 13:18 Acetaminophen 325 Mg Tablet PO Q6H PRN Pain, Mild (Pain Scale 1-3) Albuterol/Ipratropium 3 ml 11/28/20 13:18 Albuterol/Iprat 2.5/0.5mg 3 Ml Ampul.Neb INHALE Q4H PRN Shortness of Breath Atorvastatin Calcium 40 mg 11/28/20 21:00 11/30/20 21:27 Atorvastatin Calcium 40 Mg Tablet PO 40 mg BEDTIME RADHA Administration Digoxin 0.25 mg 11/29/20 09:00 12/01/20 07:44 Digoxin 0.25 Mg Tablet PO 0.25 mg DAILY RADHA Administration Folic Acid 1 mg 11/29/20 09:00 12/01/20 07:39 Folic Acid 1 Mg Tablet PO 1 mg DAILY RADHA Administration Furosemide 40 mg 11/30/20 09:00 12/01/20 07:36 Furosemide 40 Mg Tablet PO 40 mg DAILY RADHA Administration Protocol Levalbuterol HCl 1.25 mg 11/29/20 12:00 12/01/20 15:19 Levalbuterol Hcl 1.25 Mg/0.5 Ml Vial.Neb INHALE 1.25 mg RQ4H WHILE AWAKE RADHA Administration Lisinopril 2.5 mg 11/30/20 12:15 12/01/20 07:43 Lisinopril 2.5 Mg Tablet PO 2.5 mg DAILY RADHA Administration Protocol Metoprolol Succinate 100 mg 11/29/20 09:00 12/01/20 07:41 Metoprolol Succinate Er 100 Mg Tab.Er.24h PO 100 mg DAILY RADHA Administration Protocol Multivitamins/Vitamin C 1 tab 11/29/20 09:00 12/01/20 07:42 Multivitamin Tablet PO 1 tab DAILY RADHA Administration Nicotine 14 mg 11/28/20 16:30 12/01/20 07:45 Nicotine 14 Mg Patch.Td24 TRANSDERMA 14 mg DAILY RADHA Administration Pt Own Med ( 40 each 11/30/20 09:00 12/01/20 07:45 Febuxostat 40 Mg PO 40 each Tablet) DAILY RADHA Administration Pharmacy Consult 1 each 11/28/20 11:03 Consult Rx Perform Med Rec MISCELLANE ONCE PRN Consult order Polyethylene Glycol 17 gm 11/30/20 09:00 11/30/20 08:50 Polyethylene Glycol 3350 17 Gm Powd.Pack PO 17 gm DAILY RADHA Administration Prednisone 40 mg 12/01/20 09:00 12/01/20 07:40 Prednisone 20 Mg Tablet PO 40 mg DAILY RADHA Administration Sodium Chloride 3 ml 11/28/20 16:00 12/01/20 07:47 0.9 % Sodium Chloride Flush 3 Ml Syringe IVFLUSH 3 ml QSHIFT RADHA Administration Labs CBC & Chem 7: 11/30/20 06:10 12/01/20 05:36 Labs: Laboratory Results - last 24 hr 12/01/20 12/01/20 12/01/20 05:36 05:36 05:36 PT 65.9 H INR 5.6 H* Anion Gap 11 L Estim Creat Clear Calc 54.5 Estimated GFR > 60 Random Glucose 113 D Calcium 8.6 B-Natriuretic Peptide 460 H Assessment and Plan (1) Acute on chronic combined systolic and diastolic congestive heart failure: Status: Acute (2) Systolic CHF, acute: Status: Acute (3) Atrial fibrillation with rapid ventricular response: Status: Acute Assessment and Plan: 80M presented with sob and cough acute bronchitis/copd exacerbation Changed to p.o. prednisone Change nebulizers to Xopenex Discontinue doxycycline acute systolic chf Echo showed EF of 25-30% with global hypokinesia Repeat EKG Continue Lasix Discontinue lisinopril Cardiology input appreciated AFib with RVR Better controlled today Continue dig, toprol Start XL 25 mg bedtime Warfarin on hold Supratherapeutic INR INR of 5.5 today Continue to hold warfarin and discontinue doxycycline No bleeding, no need to use vitamin K CAD statin, coumadin moderate protein calorie malnutrition po intake encouraged Quality Stroke Does the patient have a stroke diagnosis?: No VTE Prior VTE?: No VTE Risk Level:: Medical - moderate - high VTE Device Contraindication: Treatment Not Indicated VTE Drug Contraindication: N/A - Med Ordered
[2020-12-01] MEDS: Metoprolol Succinate ER 25 MG TAB.ER.24H PO (20:27)
[2020-12-01] MEDS: Atorvastatin Calcium 40 MG TABLET PO (20:28)
[2020-12-02] VITALS (7 sets, daily range): BP systolic 117–144; BP diastolic 65–78; PULSE 72–113; RESP 18; TEMP 36.4–36.6; O2SAT 97–98
[2020-12-02 07:13] LABS: INTERNATIONAL NORM RATIO 3.4 (0.9-1.1); Prothrombin Time 39.2 SEC (9.9-13.0)
[2020-12-02 07:38] LABS: Anion Gap 9 (12-20); Blood Urea Nitrogen 44 mg/dL (9-16); Calcium 8.5 mg/dL (8.4-10.2); Carbon Dioxide 34 mmol/L (22-29); Chloride 104 mmol/L (96-108); Creatinine Clr Calc Pharmacy 69.3; Estimated Glomerular Filt Rate > 60; Glucose Random 91 mg/dL (60-115); Potassium 3.9 mmol/L (3.3-5.1); Sodium 143 mmol/L (135-145)
[2020-12-02 08:05] LABS: B Type Natriuretic Peptide 484 pg/mL (<100)
[2020-12-02] MEDS: Furosemide 40 MG TABLET PO (08:36)
[2020-12-02] MEDS: Multivitamin TABLET 1 TAB PO (08:36)
[2020-12-02] MEDS: Folic Acid 1 MG TABLET PO (08:36)
[2020-12-02] MEDS: predniSONE 20 MG TABLET 40 MG PO (08:37)
[2020-12-02] MEDS: Metoprolol Succinate ER 100 MG TAB.ER.24H PO (08:37)
[2020-12-02] MEDS: Digoxin 0.25 MG TABLET PO (08:37)
[2020-12-02] MEDS: 0.9 % Sodium Chloride Flush 3 ML SYRINGE IVFLUSH (08:38)
[2020-12-02] MEDS: Nicotine 14 MG PATCH.TD24 TRANSDERMA (08:40)
--- NOTE | 2020-12-02 10:56 | MHC.CM.PN ---
PT CLEARED TO DC HOME TODAY WITH NO SERVICES FAMILY TO TRANSPORT
--- NOTE | 2020-12-02 11:02 | P.PNCA_ITS ---
Subjective Subjective Date of Service: 12/02/20 Interval history: He states that he feels well. No cardiac complaints. Ambulating in hallway without difficulty. Review of Systems Review of Systems Yes all other systems are reviewed and are negative Cardiovascular: Reports as per HPI, Reports no additional cardiovascular complaints, Denies acrocyanosis, Denies cool extremities, Denies painful finger tips, Reports chest pain, Reports chest pain at rest, Denies diaphoresis, Denies syncope, Denies irregular heart rhythm, Denies claudication, Denies leg edema, Denies lightheadedness, Denies palpitations and Reports dyspnea Respiratory: Reports cough and Reports dyspnea Denies syncope Endocrine: Denies palpitations Physical Exam Vital Signs: Last Vital Signs Temp 97.5 F 12/02/20 07:05 Pulse 113 H 12/02/20 08:37 Resp 18 12/02/20 07:05 BP 138/78 12/02/20 08:37 Pulse Ox 98 12/02/20 07:05 Body Mass Index 20.3 Const General: cooperative and no acute distress [facility] Other: Unremarkable Neck Neck: Yes normal visual inspection Chest Chest palpation & inspection: normal inspection of the chest Resp Auscultation: clear to auscultation bilaterally, no crackles and no wheezes Cardio Jugular venous distension: no JVD Palpation: normal PMI Heart sounds: S1 normal heart sound present, S2 normal heart sound present, no gallops, no murmurs and no rubs GI Palpation (GI): Soft to palpation Back/Spine/Pelvis Other: unremarkable Skin General skin exam: no rashes or lesions noted Neuro Cranial nerves: Yes Other cranial nerve findings present Extrem General: Yes no clubbing, cyanosis or edema Psych Mental Status: other Results Labs and Meds Result diagrams: 11/30/20 06:10 12/02/20 05:59 Lab results: Laboratory Results - last 24 hr 12/02/20 12/02/20 12/02/20 05:59 05:59 05:59 PT 39.2 H D INR 3.4 H Sodium 143 Potassium 3.9 Chloride 104 Carbon Dioxide 34 H Anion Gap 9 L BUN 44 H Creatinine 0.85 Estim Creat Clear Calc 69.3 Estimated GFR > 60 Random Glucose 91 Calcium 8.5 B-Natriuretic Peptide 484 H Progress Note: A&P Assessment and plan (1) Atrial fibrillation with rapid ventricular response: Status: Acute (2) Acute on chronic combined systolic and diastolic congestive heart failure: Status: Acute Assessment and Plan: Cardiac BNP trend reviewed. In October it was 232. In the current admission it was 700. Went up to 833 and today it is 484. Previously, it has gone too much higher levels. Troponins are 19.5 and 18.4. Overall, his symptoms are probably more pulmonary but cannot exclude active cardiac components. Clinically, he does not sound really in active heart failure. He is currently on Lasix 40 mg daily. Toprol-XL 100 mg daily. Digoxin 250 mcg daily. Blood pressure seems reasonable. Additional 25 mg daily of Toprol-XL at nighttime for rate control. Will hold off lisinopril as he has the stated history of orthostatic hypotension per Dr. Hernández's note. Discharge planning. Oupt FU. Fall Risk Details Current Medications: Current Medications Generic Name Dose Route Start Last Admin Trade Name Freq PRN Reason Stop Dose Admin Acetaminophen 650 mg 11/28/20 13:18 Acetaminophen 325 Mg Tablet PO Q6H PRN Pain, Mild (Pain Scale 1-3) Albuterol/Ipratropium 3 ml 11/28/20 13:18 Albuterol/Iprat 2.5/0.5mg 3 Ml Ampul.Neb INHALE Q4H PRN Shortness of Breath Atorvastatin Calcium 40 mg 11/28/20 21:00 12/01/20 20:28 Atorvastatin Calcium 40 Mg Tablet PO 40 mg BEDTIME RADHA Administration Digoxin 0.25 mg 11/29/20 09:00 12/02/20 08:37 Digoxin 0.25 Mg Tablet PO 0.25 mg DAILY RADHA Administration Folic Acid 1 mg 11/29/20 09:00 12/02/20 08:36 Folic Acid 1 Mg Tablet PO 1 mg DAILY RADHA Administration Furosemide 40 mg 11/30/20 09:00 12/02/20 08:36 Furosemide 40 Mg Tablet PO 40 mg DAILY RADHA Administration Protocol Levalbuterol HCl 1.25 mg 11/29/20 12:00 12/02/20 08:22 Levalbuterol Hcl 1.25 Mg/0.5 Ml Vial.Neb INHALE 1.25 mg RQ4H WHILE AWAKE RADHA Administration Metoprolol Succinate 100 mg 11/29/20 09:00 12/02/20 08:37 Metoprolol Succinate Er 100 Mg Tab.Er.24h PO 100 mg DAILY RAHDA Administration Protocol Metoprolol Succinate 25 mg 12/01/20 21:00 12/01/20 20:27 Metoprolol Succinate Er 25 Mg Tab.Er.24h PO 25 mg BEDTIME RADHA Administration Protocol Multivitamins/Vitamin C 1 tab 11/29/20 09:00 12/02/20 08:36 Multivitamin Tablet PO 1 tab DAILY RADHA Administration Nicotine 14 mg 11/28/20 16:30 12/02/20 08:40 Nicotine 14 Mg Patch.Td24 TRANSDERMA 14 mg DAILY RADHA Administration Pt Own Med ( 40 each 11/30/20 09:00 12/02/20 08:47 Febuxostat 40 Mg PO 40 each Tablet) DAILY RADHA Administration Pharmacy Consult 1 each 11/28/20 11:03 Consult Rx Perform Med Rec MISCELLANE ONCE PRN Consult order Polyethylene Glycol 17 gm 11/30/20 09:00 12/02/20 08:39 Polyethylene Glycol 3350 17 Gm Powd.Pack PO 17 gm DAILY RADHA Administration Prednisone 40 mg 12/01/20 09:00 12/02/20 08:37 Prednisone 20 Mg Tablet PO 40 mg DAILY RADHA Administration Sodium Chloride 3 ml 11/28/20 16:00 12/02/20 08:38 0.9 % Sodium Chloride Flush 3 Ml Syringe IVFLUSH 3 ml QSHIFT RADHA Administration Time Spent With Patient Time: Total time spent is greater than 50% in coordination of care (as documented) at patient's floor/unit and/or counseling patient: Time with patient: less than 15 minutes Progress Note: Quality Stroke Does the patient have a stroke diagnosis?: No Procedures Date of Service Date of Service: 12/02/20
== END 2020-12-02 13:24 | disposition home or self-care (01) | DRG 190 ==
LOC: HO.ED 11:41 → HO.EDOVER 15:08 → HO.IMC 21:51
PROVIDERS: Physician Assistant Medical; Admitting Provider Internal Medicine; Emergency Provider Emergency Medicine Emergency Medical Services; PCP Internal Medicine; Visit Provider Student in an Organized Health Care Education/Training Program
DX: J44.0 Chronic obstructive pulmonary disease with (acute) lower respiratory infection (principal); I50.43 Acute on chronic combined systolic (congestive) and diastolic (congestive) heart failure; I48.20 Chronic atrial fibrillation, unspecified; I25.10 Atherosclerotic heart disease of native coronary artery without angina pectoris; J44.1 Chronic obstructive pulmonary disease with (acute) exacerbation; R79.1 Abnormal coagulation profile; J20.9 Acute bronchitis, unspecified; Z20.822 Contact with and (suspected) exposure to COVID-19; I11.0 Hypertensive heart disease with heart failure; E78.5 Hyperlipidemia, unspecified; E11.42 Type 2 diabetes mellitus with diabetic polyneuropathy; F17.210 Nicotine dependence, cigarettes, uncomplicated; Z71.6 Tobacco abuse counseling; Z79.01 Long term (current) use of anticoagulants; Z79.899 Other long term (current) drug therapy
CPT/HCPCS: 0241U; 36415; 71045; 71046; 73030; 80048; 80053; 80162; 83605; 83735; 83880; 84484; 85025; 85027; 85610; 87040; 93005; 93306; 94640; 97162; 99285; J0696; J1940; J2270; J2405; J2920

== ENCOUNTER → 2020-12-08 10:37 | Outpatient (BNVA) | payer MEDICARE, SELFPAY | PROVIDERS: PCP Internal Medicine; Visit Provider Internal Medicine | DX: I48.20 Chronic atrial fibrillation, unspecified (principal); Z51.81 Encounter for therapeutic drug level monitoring; Z79.01 Long term (current) use of anticoagulants | CPT/HCPCS: 85610; 99211 ==

== ENCOUNTER 2020-12-12 11:55 | Outpatient (REF) | payer MEDICARE, SELFPAY ==
--- NOTE | ~2020-12-12 | PE_ITS ---
EXAMINATION: Fluorine-18 FDG PET/CT Scan CLINICAL INDICATION: Initial treatment management. Pulmonary nodule. PROCEDURE: 64 minutes following the intravenous administration of 16.7 mCi of fluorine 18 FDG, images from the base of the skull to the mid thighs were obtained using a combined PET/CT scanner with CT scan based attenuation correction. No oral contrast was administered. No intravenous contrast was administered. Transverse, coronal, sagittal, and volume reconstruction projections were obtained. The patient's blood glucose as determined by a finger stick, was 97 mg/dl immediately prior to injection. Total CT exam dose-length product 545.59 mGy-cm * These CT images were obtained using dose optimization techniques as appropriate, variously including the following: Automated exposure control * Adjustment of mA and/or kV according to patient size (this includes techniques or standardized protocols for targeted exams where dose is matched to indication/reason for exam; i.e. extremities or head) * Use of iterative reconstruction technique COMPARISON: No previous PET/CT scan is available for comparison. CT scan of the chest dated 11/01/2020 and CTA of the abdomen, pelvis and lower extremities dated 07/09/2019 is available for comparison. FINDINGS: (Slice numbers described in this report are numbered superiorly to inferiorly with slice #1 in the head) NECK AND VISUALIZED HEAD: There is a focus of markedly increased FDG activity present but is difficult to localize but is probably in the posterior aspect of the left parotid gland. This shows SUV Max 11.2, slice 27/267. No additional foci of abnormal FDG activity are present in the neck or visualized head. All the other activity in this region appears physiological. THORAX: There is severe emphysema. There are postsurgical changes in the right upper lobe with a suture line evident in the right lung apex as well as several additional metallic sutures slightly more inferiorly. There is a discrete focus of abnormal FDG activity, SUV Max 10.8, slice 73/267 associated with some subcentimeter soft tissue densities abutting the anterior pleura of the right lung apex. These extend for several centimeters cephalocaudad within the right apex in a curvilinear distribution. There is an additional discrete focus of mildly increased FDG activity in the medial suprahilar region of the right upper lobe, SUV Max 3.7, slice 85/267 and this is associated with an opacity that measures 1.8 x 1.6 cm in largest transverse dimension and which contains some dense calcifications or additional sutures. No additional foci of abnormal FDG activity are present within the lung parenchyma. There is a focus of abnormal FDG activity associated with some thickening in the posterior medial pleura of the right lung base, SUV Max 8.0, slice 148/267. Less intense diffusely increased FDG activity is present associated with some pleural thickening posteriorly in the right lung base in this shows SUV Max 5.7, slice 151/267. There is an additional discrete focus of increased FDG activity, SUV Max 6.2 in the anterolateral pleura of the base of the right middle lobe, slice 149/267. There is an FDG avid right precarinal lymph node, SUV Max 5.3, slice 96/267 measuring 1.7 x 1.1 cm in largest transverse dimensions. More superiorly a subcentimeter right paratracheal lymph node shows weak FDG activity, SUV Max 2.4, slice 78/267. No additional mediastinal, supraclavicular, or axillary lymphadenopathy is present. There is no pleural or pericardial fluid, or pneumothorax. ABDOMEN AND PELVIS: There is diffusely increased FDG activity present in the stomach. This cannot be evaluated for coexisting wall thickening in the absence of oral contrast. This shows SUV Max 5.7, slice 141. There is additional mild FDG activity present throughout the gastrointestinal tract but no additional suspicious focal components are present. There is diverticulosis without evidence of diverticulitis. The hollow viscera are otherwise unremarkable. The liver and spleen are unremarkable. There is some dependent sludge in the gallbladder but this is otherwise unremarkable. The kidneys, adrenal glands, and pancreas are unremarkable. There is no retroperitoneal, mesenteric, pelvic or inguinal lymphadenopathy. MUSCULOSKELETAL: There is a small focus of mildly increased FDG activity in the anterolateral aspect of the right seventh rib, SUV Max 3.7, slice 139/267. This may be associated with a subtle fracture on the CT images at this site, but alternatively this may represent a small FDG avid pleural focus at this site. There are no other foci of abnormal FDG activity present in the osseous structures. There are diffuse degenerative changes in the spine but no suspicious sclerotic or lytic lesions are visualized. VASCULAR: Diffuse vascular calcifications including coronary are noted. There is ectasia of the infrarenal abdominal aorta showing maximum AP diameter of 2.8 cm. This is not significantly changed from the 07/09/2019 CT scan. PET/PET CT fusion skull to thigh IMPRESSION: 1. Abnormal FDG activity in the right lung apex is suspicious for malignancy at this site. Less likely, this may represent post surgical inflammatory changes, but the intensity of the FDG activity is more suspicious for malignancy. 2. An additional discrete focus of abnormal FDG activity well inferior to the right lung apical abnormalities is present medially in the right upper lobe and this is also suspicious for malignancy. 3. FDG avid pleural thickening at the right lung base is noted as described above and while this could be inflammatory in etiology, the intensity of FDG activity is more suspicious for malignancy. 4. A few FDG avid mediastinal lymph nodes are noted as described above and these are strongly suspicious for metastatic disease. 5. An FDG avid focus in the anterolateral aspect of the right seventh rib is nonspecific but is suspicious for fracture at this site. Alternatively, an immediately adjacent FDG avid pleural lesion may be responsible for this focus. 6. There is an intensely FDG avid focus in the left parotid region. This is not well delineated on the CT images, and is nonspecific. While this may represent a primary or metastatic malignant lesion, benign parotid lesions such as Warthin's tumors and pleomorphic adenomas are frequently FDG avid. 7. No additional abnormalities suspicious for other metastatic or malignant lesions are noted. 8. Cholelithiasis. 9. Severe diffuse vascular calcifications including coronary.
[2020-12-12 15:11] LABS: MANUAL DIFF FLAG NO
[2020-12-12 15:16] LABS: Basophils Percent Auto 0.4 % (0-2); Eosinophils Absolute Auto 0.1 X10*3/uL (0.0-0.4); Eosinophils Percent Auto 2.5 % (0-4); Hematocrit 36.7 % (42-52); Hemoglobin 11.8 g/dl (14.0-18.0); Imm Gran Abs Auto 0.02 X10*3/uL (0.00-0.03); Imm Gran Pct Auto 0.4 % (0.0-0.4); Lymphocytes Absolute Auto 1.3 X10*3/uL (1.2-4.9); Lymphocytes Percent Auto 23.2 % (20-40); Mean Corpuscular HGB Conc 32.2 g/dl (31.0-36.0); Mean Corpuscular Hemoglobin 31.8 pg (27.0-33.0); Mean Corpuscular Volume 98.9 fL (80-98); Mean Platelet Volume 11.4 fL (9.4-12.4); Monocytes Absolute Auto 0.6 X10*3/uL (0.1-1.2); Monocytes Percent Auto 11.1 % (2-11); Neutrophils Absolute Auto 3.5 X10*3/uL (2.0-8.3); Neutrophils Percent Auto 62.4 % (45-73); Platelet Count 220 X10*3/uL (160-400); Red Blood Count 3.71 X10*6/uL (4.60-5.80); Red Cell Distribution Width 14.9 % (11.0-16.0); White Blood Count 5.6 X10*3/uL (4.8-10.8)
[2020-12-12 15:23] LABS: Estimated Average Glucose 134 mg/dL; Hemoglobin A1c % 6.3 %
[2020-12-12 15:27] LABS: Glucose Urine UA NEG (NEG); Leukocyte Esterase Urine NEG (NEG); Nitrite Urine NEG (NEG); Specific Gravity - Urine 1.015 (1.005-1.025); Urine Blood NEG (NEG); Urine Ketones NEG (NEG); Urine Protein NEG (NEG-TRACE)
[2020-12-12 15:33] LABS: Appearance Urine HAZY; Color Urine YELLOW
[2020-12-12 15:40] LABS: Alanine Aminotransferase 30 U/L (0-40); Albumin Level 3.4 g/dL (3.5-5.0); Alkaline Phosphatase 86 U/L (39-117); Anion Gap 10 (12-20); Aspartate Amino Transferase 26 U/L (5-37); Bilirubin Total 0.7 mg/dL (0.0-1.0); Blood Urea Nitrogen 25 mg/dL (9-16); Calcium 8.7 mg/dL (8.4-10.2); Carbon Dioxide 35 mmol/L (22-29); Chloride 104 mmol/L (96-108); Cholesterol 96 mg/dL; Estimated Glomerular Filt Rate > 60; Glucose Fasting 90 mg/dL (60-99); HDL Cholesterol 40 mg/dL; LDL Cholesterol Calculated 48 mg/dl; Potassium 4.5 mmol/L (3.3-5.1); Sodium 144 mmol/L (135-145); Total Protein 5.7 g/dL (6.5-8.0); Triglycerides 40 mg/dL; Uric Acid 4.5 mg/dL (3.4-7.0)
[2020-12-12 15:53] LABS: TSH reflex Free T4 0.71 uIU/mL (0.32-4.0); Vitamin D 25-OH Total 32.6 ng/mL (>30)
[2020-12-12 16:15] LABS: Folate > 20.0 ng/mL (> or = 4.0); Vitamin B12 404 pg/mL (200-900)
== END 2020-12-12 11:56 | disposition home or self-care (01) ==
LOC: HO.PET 11:55
PROVIDERS: PCP Internal Medicine; Visit Provider Surgery
DX: R91.1 Solitary pulmonary nodule (principal); C34.11 Malignant neoplasm of upper lobe, right bronchus or lung; E55.9 Vitamin D deficiency, unspecified; E11.29 Type 2 diabetes mellitus with other diabetic kidney complication; G62.9 Polyneuropathy, unspecified; E78.00 Pure hypercholesterolemia, unspecified; I25.10 Atherosclerotic heart disease of native coronary artery without angina pectoris; F17.200 Nicotine dependence, unspecified, uncomplicated; J44.9 Chronic obstructive pulmonary disease, unspecified; M10.9 Gout, unspecified; I48.20 Chronic atrial fibrillation, unspecified; I50.30 Unspecified diastolic (congestive) heart failure; R60.0 Localized edema
CPT/HCPCS: 36415; 80053; 80061; 81003; 82306; 82607; 82746; 83036; 84443; 84550; 85025

== ENCOUNTER 2020-12-16 09:38 | Outpatient (REF) | payer MEDICARE, SELFPAY ==
[2020-12-16 11:36] LABS: Blood Urea Nitrogen 22 mg/dL (9-16); Estimated Glomerular Filt Rate > 60
== END 2020-12-16 09:39 | disposition home or self-care (01) ==
LOC: HO.HMGCLDS 09:38
PROVIDERS: PCP Internal Medicine; Visit Provider Radiology Vascular & Interventional Radiology
DX: R79.89 Other specified abnormal findings of blood chemistry (principal); R94.4 Abnormal results of kidney function studies
CPT/HCPCS: 36415; 82565; 84520

== ENCOUNTER 2020-12-21 10:11 | Outpatient (REF) | payer MEDICARE, SELFPAY ==
--- NOTE | ~2020-12-21 | XR_ITS ---
EXAMINATION: XR CHEST CLINICAL INFORMATION: Lung carcinoma COMPARISON: 11/28/2020 TECHNIQUE: 2 views of the chest were obtained. FINDINGS: Emphysematous changes again noted. Right apical staple line with pleural calcific changes stable. Hyperinflation noted. There is no evidence for any new findings. Heart size remains top normal with a prominent right ventricular configuration. No pleural disease. No acute osseous abnormality. XR/XR chest 2V IMPRESSION: Advanced emphysema. Posttreatment changes. No acute superimposed process. Please note known FDG positive foci are not measurable on plain films.
== END 2020-12-21 10:12 | disposition home or self-care (01) ==
LOC: HO.HMGCX 10:11
PROVIDERS: PCP Internal Medicine; Visit Provider Internal Medicine Medical Oncology
DX: C34.91 Malignant neoplasm of unspecified part of right bronchus or lung (principal)
CPT/HCPCS: 71046

== ENCOUNTER → 2020-12-26 10:30 | Outpatient (BNVA) | payer MEDICARE, SELFPAY | PROVIDERS: PCP Internal Medicine; Referring Provider Internal Medicine; Visit Provider Internal Medicine Cardiovascular Disease | DX: I42.9 Cardiomyopathy, unspecified (principal); I50.9 Heart failure, unspecified; I48.20 Chronic atrial fibrillation, unspecified | CPT/HCPCS: 99212 ==

== ENCOUNTER → 2021-01-02 10:00 | Outpatient (BNVA) | payer MEDICARE, SELFPAY | PROVIDERS: PCP Internal Medicine; Visit Provider Internal Medicine | DX: I48.20 Chronic atrial fibrillation, unspecified (principal); Z51.81 Encounter for therapeutic drug level monitoring; Z79.01 Long term (current) use of anticoagulants | CPT/HCPCS: 85610; 99211 ==

== ENCOUNTER → 2021-01-05 08:45 | Outpatient (BNVA) | payer MEDICARE, SELFPAY | PROVIDERS: PCP Internal Medicine; Visit Provider Internal Medicine | DX: I48.0 Paroxysmal atrial fibrillation (principal); J44.9 Chronic obstructive pulmonary disease, unspecified; F17.210 Nicotine dependence, cigarettes, uncomplicated; C34.11 Malignant neoplasm of upper lobe, right bronchus or lung; R91.1 Solitary pulmonary nodule; R59.0 Localized enlarged lymph nodes; Z79.899 Other long term (current) drug therapy; Z71.6 Tobacco abuse counseling; Z51.81 Encounter for therapeutic drug level monitoring; Z79.01 Long term (current) use of anticoagulants | CPT/HCPCS: 85610; 99211 ==

== ENCOUNTER 2021-01-10 12:40 | Outpatient (REF) | payer MEDICARE, SELFPAY ==
--- NOTE | ~2021-01-10 | US_ITS ---
EXAMINATION: ULTRASOUND-GUIDED FINE-NEEDLE ASPIRATION CLINICAL INFORMATION: Left parotid lesion seen on PET CT scan COMPARISON: PET/CT scan 12/12/2020 TECHNIQUE: Procedure and risks and benefits including bleeding, infection and inflammation of the parotid gland were discussed with the patient and informed consent was obtained. The left neck was prepped and draped in the usual sterile fashion. The skin and soft tissues were anesthetized with 1% lidocaine plain. Using ultrasound guidance and a 25-gauge needle, 3 separate 25-gauge FNA aspirates of the left parotid lesion were obtained. FINDINGS: There is a 1.3 x 0.8 x 4.9 cm hypoechoic lesion in the left parotid gland that was targeted for fine-needle aspiration. This demonstrates increased vascularity. US/US guided fine needle asp IMPRESSION: Ultrasound-guided left parotid fine-needle aspiration.
[2021-01-10] MEDS: Lidocaine HCl 1 % MPF 5 ML VIAL SUBCUT (14:55)
== END 2021-01-10 12:41 | disposition home or self-care (01) ==
LOC: HO.US 12:40
PROVIDERS: PCP Internal Medicine; Visit Provider Surgery
DX: D11.0 Benign neoplasm of parotid gland (principal); Z85.118 Personal history of other malignant neoplasm of bronchus and lung
CPT/HCPCS: 10005; 88172; 88173; 88177; 88305

== ENCOUNTER → 2021-01-15 10:16 | Outpatient (BNVA) | payer MEDICARE, SELFPAY | PROVIDERS: PCP Internal Medicine; Visit Provider Internal Medicine | DX: I48.20 Chronic atrial fibrillation, unspecified (principal); Z51.81 Encounter for therapeutic drug level monitoring; Z79.01 Long term (current) use of anticoagulants | CPT/HCPCS: 85610; 99211 ==

== ENCOUNTER → 2021-01-22 10:32 | Outpatient (BNVA) | payer MEDICARE, SELFPAY | PROVIDERS: PCP Internal Medicine; Visit Provider Internal Medicine | DX: I48.20 Chronic atrial fibrillation, unspecified (principal); Z51.81 Encounter for therapeutic drug level monitoring; Z79.01 Long term (current) use of anticoagulants | CPT/HCPCS: 85610; 99211 ==

== ENCOUNTER 2021-01-24 10:00 | Outpatient (REF) | payer MEDICARE, SELFPAY ==
[2021-01-24 11:25] LABS: Appearance Urine CLEAR; Color Urine YELLOW; Glucose Urine UA NEG (NEG); Leukocyte Esterase Urine NEG (NEG); Nitrite Urine NEG (NEG); PH 5.5 (5.0-8.0); UACC Culture Trigger NO; Urine Blood TRACE (NEG); Urine Ketones NEG (NEG); Urine Protein NEG (NEG-TRACE)
[2021-01-24 11:47] LABS: RBC Urine 0-2 /HPF (0); WBC Urine 0 /HPF (0-4)
[2021-01-24 11:56] LABS: Uric Acid 4.5 mg/dL (3.4-7.0)
[2021-01-24 11:59] LABS: Digoxin 0.5 ng/mL (0.8-2.0)
== END 2021-01-24 10:01 | disposition home or self-care (01) ==
LOC: HO.HMGCLDS 10:00
PROVIDERS: Internal Medicine Cardiovascular Disease; PCP Internal Medicine; Visit Provider Internal Medicine
DX: M10.9 Gout, unspecified (principal); I48.20 Chronic atrial fibrillation, unspecified; Z79.899 Other long term (current) drug therapy
CPT/HCPCS: 36415; 80162; 81001; 84550

== ENCOUNTER → 2021-02-05 10:24 | Outpatient (BNVA) | payer MEDICARE, SELFPAY | PROVIDERS: PCP Internal Medicine; Visit Provider Internal Medicine | DX: I48.20 Chronic atrial fibrillation, unspecified (principal); Z51.81 Encounter for therapeutic drug level monitoring; Z79.01 Long term (current) use of anticoagulants | CPT/HCPCS: 85610; 99211 ==

== ENCOUNTER → 2021-02-16 11:29 | Day surgery (SDC) | payer MEDICARE, SELFPAY ==
[2021-02-09 11:42] VITALS: BMI 20.1
--- NOTE | 2021-02-15 08:49 | P.CONAN_ITS ---
Documented by User: Charo Aranda NP 02/15/21 08:55 HPI - Anesthesia Eval Consult details Narrative: 80yo M for Endoscopic Bronchial Ultrasound Warfarin for afib PMFSH Active Problems Active Problems: All Active Problems (Updated 02/09/21 @ 11:46 by Sobia Trejo, DEISY) Current use of anticoagulant therapy (Acute) Postural dizziness with near syncope (Acute) Encounter for Medicare annual wellness exam (Acute) Cancer of upper lobe of right lung (Acute ~2013) Solitary pulmonary nodule (Acute) Shoulder pain, acute (Acute) Chest wall discomfort (Acute) Cardiomyopathy (Acute) Congestive heart failure (Acute) Mediastinal lymphadenopathy (Acute) Neuropathy (Acute) Gout (Acute) Vitamin D deficiency (Acute) Osteoarthritis of knees, bilateral (Acute) Lumbar degenerative disc disease (Acute) Benign essential hypertension (Acute) Pure hypercholesterolemia (Acute) COPD (chronic obstructive pulmonary disease) (Acute) Bilateral lower extremity edema (Acute) Chronic atrial fibrillation (Acute) Osteoarthritis (Acute) Back pain (Acute) HLD (hyperlipidemia) (Acute) (HFpEF) heart failure with preserved ejection fraction (Acute) CAD (coronary artery disease) (Acute) Smoker (Acute) Past Medical History Medical History (HFpEF) heart failure with preserved ejection fraction Back pain Benign essential hypertension Bilateral lower extremity edema CAD (coronary artery disease) Chronic atrial fibrillation COPD (chronic obstructive pulmonary disease) Gout HLD (hyperlipidemia) Hypertension Lumbar degenerative disc disease Neuropathy Osteoarthritis Osteoarthritis of knees, bilateral Physical deconditioning Pure hypercholesterolemia Smoker Type 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 Surgical History Surgical History History of brain surgery History of cardiac cath (~02/2016) History of lung surgery (~2013) History of lung surgery (~2019) History of right knee surgery (~09/2005) Status post arterial stent Social History Social History Household Members: None Housing: House Do you presently have visiting nurse or other home services: No Alcohol intake: never Patient Tobacco Use Status: Current everyday Tobacco user Tobacco use type: Cigarette Cigarette Packs Per Day: 0.5 Cigarettes Per Day: 10 Years Smoked: 50 Second Hand Smoke Exposure: No Are you DNR?: No Advance Directives: Yes Advance Directives Information Provided: Yes Advance Directives on File: Yes Advance Directives Date on File: 11/29/20 service: No Current occupational status: retired Meds Allergies Allergy/AdvReac Type Severity Reaction Status Date / Time No Known Allergies Allergy Unknown UNKNOWN Verified 02/13/21 11:44 [NO KNOWN ALLERGIES] Home Medications Medication Instructions Recorded Confirmed Last Taken Type atorvastatin 40 mg tablet 40 mg PO BEDTIME 07/10/20 02/09/21 11/27/20 History calcium carbonate 600 mg (1,500 1 tab PO DAILY 07/10/20 02/09/21 11/28/20 History mg)-vitamin D3 200 unit tablet multivitamin 1 tab PO DAILY 07/10/20 02/09/21 11/28/20 History nicotine 14 mg/24 hr daily 1 patch TRANSDERMAL DAILY 07/10/20 02/09/21 11/27/20 History transdermal patch vitamins A,C,G-kyfv-bafang 14,320 1 cap PO DAILY 07/10/20 02/09/21 11/28/20 History unit-226 mg-200 unit capsule (PreserVision AREDS) acetaminophen 650 mg 650 mg PO Q12H PRN 11/28/20 02/09/21 11/27/20 History tablet,extended release aspirin 81 mg chewable tablet 81 mg PO DAILY 12/29/20 02/09/21 Unknown History Exam Exam Date and Time: February 15, 2021 0849 Height,Weight and Vital Signs: Height 6 ft 2 in Weight 71.214 kg Pertinent Lab Results Pertinent Lab Results: Laboratory Tests 12/12/20 12/12/20 12/16/20 14:07 14:07 09:46 WBC 5.6 Hgb 11.8 L Hct 36.7 L Plt Count 220 D Sodium 144 Potassium 4.5 Chloride 104 Carbon Dioxide 35 H BUN 22 H Creatinine 1.00 Narrative Narrative: EKG 12/2020 Vent. Rate : 096 BPM ? ? Atrial Rate : 277 BPM ?? P-R Int : 000 ms? QRS Dur : 162 ms ? ? QT Int : 380 ms ? ? ? P-R-T Axes : 000 -86 038 degrees ?? QTc Int : 480 ms ? Atrial fibrillation Right bundle branch block Left anterior fascicular block Bifascicular block Abnormal ECG When compared with ECG of 28-NOV-2020 07:33, No significant changes seen ECHO 12/2020 Conclusions: - The left ventricular systolic function is severely decreased.? The visually estimated ejection fraction is between 25-30%.? ? ? - Severe biatrial enlargement. ? - There is mild calcification of the aortic valve. ? - There is mild to moderate mitral valve regurgitation.? - There is mild tricuspid valve regurgitation. ? - There is mild dilatation of the ascending aorta measuring 4.00 cm.? ? ? Per cardiology, Stress Test 12/2019 wnl Assessment and Plan Assessment Anesthesia Assessment: Chart Reviewed Documented by User: Katina Pozo MD 02/16/21 13:22 HPI - Anesthesia Eval Consult details Narrative: 80yo M for Endoscopic Bronchial Ultrasound Warfarin for afib. Last dose 02/10/21 [facility] Past Medical History Medical History (HFpEF) heart failure with preserved ejection fraction Back pain Benign essential hypertension Bilateral lower extremity edema CAD (coronary artery disease) Chronic atrial fibrillation COPD (chronic obstructive pulmonary disease) Gout HLD (hyperlipidemia) Hypertension Lumbar degenerative disc disease Neuropathy Osteoarthritis Osteoarthritis of knees, bilateral Physical deconditioning Pure hypercholesterolemia Smoker Type 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 Family history of problems with anesthesia: No Surgical History Surgical History History of brain surgery History of cardiac cath (~02/2016) History of lung surgery (~2013) History of lung surgery (~2019) History of right knee surgery (~09/2005) Status post arterial stent History of Problems with Anesthesia: No Social History Social History Household Members: None Housing: House Do you presently have visiting nurse or other home services: No Alcohol intake: never Patient Tobacco Use Status: Current everyday Tobacco user Tobacco use type: Cigarette Cigarette Packs Per Day: 0.5 Cigarettes Per Day: 10 Years Smoked: 50 Second Hand Smoke Exposure: No Are you DNR?: No Advance Directives: Yes Advance Directives Information Provided: Yes Advance Directives on File: Yes Advance Directives Date on File: 11/29/20 service: No Current occupational status: retired Meds Allergies Allergy/AdvReac Type Severity Reaction Status Date / Time No Known Allergies Allergy Unknown UNKNOWN Verified 02/13/21 11:44 [NO KNOWN ALLERGIES] Home Medications Medication Instructions Recorded Confirmed Last Taken Type atorvastatin 40 mg tablet 40 mg PO BEDTIME 07/10/20 02/09/21 11/27/20 History calcium carbonate 600 mg (1,500 1 tab PO DAILY 07/10/20 02/09/21 11/28/20 History mg)-vitamin D3 200 unit tablet multivitamin 1 tab PO DAILY 07/10/20 02/09/21 11/28/20 History nicotine 14 mg/24 hr daily 1 patch TRANSDERMAL DAILY 07/10/20 02/09/21 11/27/20 History transdermal patch vitamins A,C,U-nubz-eiocaq 14,320 1 cap PO DAILY 07/10/20 02/09/21 11/28/20 History unit-226 mg-200 unit capsule (PreserVision AREDS) acetaminophen 650 mg 650 mg PO Q12H PRN 11/28/20 02/09/21 11/27/20 History tablet,extended release aspirin 81 mg chewable tablet 81 mg PO DAILY 12/29/20 02/09/21 Unknown History Exam Airway Mallampati Class: II TM Dist: >3cm Neck ROM: Full Denture: Upper and Lower Heart: Irregularly irregular Lungs: CTAB Assessment and Plan Assessment Anesthesia Assessment: Anesthesia Plan Discussed Final Anesthetic Review Family History of Problems with Anesthesia: No History of Problems with Anesthesia: No NPO: Yes ASA Class: IV Final Preanesthetic Review: No Changes in Pt Med Stat, Meds/Allgs Chart Reviewed, Consent Obtained/Reviewed and Anes Risks/Benef Reviewed Patient Risk: High Procedure Risk: Intermediate Assessment/Block/Sedation in SS: Assess/Block/Sedation-SS Anesthetic Plan Anesthetic Plan: GA Disposition: Standard PACU
--- NOTE | 2021-02-16 11:44 | P.HPSUR_ITS ---
Pre-Procedural Eval Section A Date of Service: 02/16/21 The patient is an INPATIENT: No The History & Physical has been completed within 30 days and I have reviewed it.: No Section B Chief Complaint: malignant neoplasm Relevant Family History (Specify if Yes): No Relevant Social History: Tobacco Use Present Medications: see Short Stay Collaborative assessment Medical History: Significant History (Lung cancer status post lobectomy, diastolic heart failure, AFib, CAD) History of Previous Operations: Relevant previous surgery/procedure and date(s) Allergies: Allergies Allergy/AdvReac Type Severity Reaction Status Date / Time No Known Allergies Allergy Unknown UNKNOWN Verified 02/13/21 11:44 [NO KNOWN ALLERGIES] Review of Systems Sugical H&P ROS: Negative: Constitution, Cardiovascular, Respiratory, Ne urological, Psychiatric, Hem-Onc, Allergic/Immunologic, Gastrointestinal, Genitourinary, Musculoskeletal, Integumentary, Endocrine and Eyes/Ears/Nose/Throat Exam Surgical H&P Exam: Normal: HEENT, Normal: Abdomen, Normal: Skin and Normal: Neurological and Significant Findings: Heart (Regular rhythm), Significant Findings: Lungs (Mild bibasilar crackles) and Significant Findings: Extremities (Trace bilateral edema) Plan Diagnosis/Plan: Unchanged I have reviewed the history and physical and performed a pertinent physical examination on my patient. No changes have occurred unless specified.
[2021-02-16 11:57] VITALS: BP 143/84; PULSE 88; RESP 18; TEMP 36.6; O2SAT 96
[2021-02-16 12:14] LABS: INTERNATIONAL NORM RATIO 1.3 (0.9-1.1); Prothrombin Time 14.7 SEC (9.9-13.0)
[2021-02-16] MEDS: 0.9 % Sodium Chloride 1,000 ML 20 ML IVCONT (12:19)
--- NOTE | 2021-02-16 13:24 | PC.NURSE ---
md hilton by bedside speaking to patient. cancelled due to equipment issue. called patients family for a ride home.
--- NOTE | 2021-02-16 13:44 | PC.NURSE ---
100cc normal saline infused. iv removed. assisted patient with dressing. put in wheelchair and brought into discharge awaiting for his ride. coffee and snack given. no complaints.
== END ==
PROVIDERS: Nurse Practitioner; PCP Internal Medicine; Visit Provider Internal Medicine Pulmonary Disease
DX: C34.10 Malignant neoplasm of upper lobe, unspecified bronchus or lung (principal); Z53.8 Procedure and treatment not carried out for other reasons; Z85.118 Personal history of other malignant neoplasm of bronchus and lung; I11.0 Hypertensive heart disease with heart failure; I50.30 Unspecified diastolic (congestive) heart failure; J44.9 Chronic obstructive pulmonary disease, unspecified; F17.210 Nicotine dependence, cigarettes, uncomplicated
CPT/HCPCS: 36415; 85610; J0171; J2405; J3010

== ENCOUNTER → 2021-02-19 10:17 | Outpatient (REF) | payer MEDICARE, SELFPAY ==
--- NOTE | 2021-02-19 10:40 | CA_ITS ---
Transthoracic Echocardiogram Limied Patient (Last, First, Middle): Scottie Encinas J Gender: Male Date of : 1940 Age: 80 Procedure Date: 02/19/2021 Procedure Type: Transthoracic Echocardiogram Limied Location: OP Height: 182.88 cm Weight: 71.22 kg BSA: 1.92 m2 Heart Rate: bpm BP: 136 / 60 mmHg Senior Paralegal: Referring MD: Honorio Hernández MD Symptoms: I50.30 CHF Study Quality: Fair ECG Rhythm: Atrial Fibrillation Conclusions: - The left ventricular systolic function is moderately decreased. The calculated ejection fraction is 31% by biplane method. Findings Left Ventricle Normal left ventricular cavity size. There is moderately increased left ventricular wall thickness. The left ventricular systolic function is moderately decreased. The calculated ejection fraction is 31% by biplane method. Right Ventricle Mildly increased right ventricular cavity size. There is normal right ventricular systolic function. TAPSE 2.2cm. Tricuspid Valve There is mild tricuspid valve regurgitation. The pulmonary artery systolic pressure is normal. Prior Study Comparison No significant change compared to prior study dated: 11/29/2020. Measurements 2D Linear Measurements IVSd: 1.29 0.6-0.9/0.6-1.0 cm LVIDd: 5.37 3.9-5.3/4.2-5.9 cm LVIDd Index: 2.80 2.4-3.2/2.2-3.1 cm/m2 LVIDs: 4.27 2.0-3.6 cm LVPWd: 1.21 0.7-1.1 cm LV Mass: 345.89 67-162/88-224 g LV Mass Index: 180.15 43-95/49-115 g/m2 2D Systolic Function EF 4C: 31.70 >55% EF 2C: 34.60 >55% EF BiP: 31.00 >55% Mitral Valve MV Pk E: 0.93 MV Decel Time: 130.00 E'Lateral: 14.60 E'Medial: 6.96 E/E' Med: 13.40 E/E' Lat: 6.40 PHT: 38.00 MVA PHT: 5.79 Decel Concho: 7.14 Diastolic Function MV Pk E: 0.93 E'Medial: 6.96 E/E' Med: 13.40 E' Laterial: 14.60 E/E' Lat: 6.40 Right Ventricle TAPSE (mm): 22.00 TVS' Robb: 10.00 Tricuspid Valve TR Pk Robb: 2.62 TR Pk Grad: 27.00 Updated in Other Vendor System with Status of Final Milo Solano MD electronically signed on 02/20/2021 4:55:46 PM with status of Final
== END ==
LOC: HO.CARD 10:17
PROVIDERS: PCP Internal Medicine; Visit Provider Internal Medicine Cardiovascular Disease
DX: I50.30 Unspecified diastolic (congestive) heart failure (principal)
CPT/HCPCS: 93308

== ENCOUNTER → 2021-02-22 08:56 | Outpatient (BNVA) | payer MEDICARE, SELFPAY | PROVIDERS: PCP Internal Medicine; Referring Provider Internal Medicine; Visit Provider Internal Medicine Cardiovascular Disease | DX: I50.9 Heart failure, unspecified (principal); I48.20 Chronic atrial fibrillation, unspecified | CPT/HCPCS: 99212 ==

== ENCOUNTER 2021-02-28 09:16 | Day surgery (SDC) | payer MEDICARE, SELFPAY ==
[2021-02-21 14:06] VITALS: BMI 20.1
--- NOTE | 2021-02-27 09:51 | P.CONAN_ITS ---
Documented by User: Charo Aranda NP 02/27/21 13:38 HPI - Anesthesia Eval Consult details Narrative: 81yo M for Endoscopic Bronchial Ultrasound Warfarin for afib. Last dose 02/10/21? Stable CHF and at cardiology OV 02/22/21. To continue with current regimen. Procedure previouly cx'd d/t equipment issues REPLACED BY [facility] Active Problems Active Problems: All Active Problems (Updated 02/26/21 @ 15:16 by Rafaela Headley PA-C) Cancer of upper lobe of right lung (Acute ~2013) Pure hypercholesterolemia (Acute) Solitary pulmonary nodule (Acute) Mediastinal lymphadenopathy (Acute) COPD (chronic obstructive pulmonary disease) (Acute) Smoker (Acute) Cardiomyopathy (Acute) Congestive heart failure (Acute) CAD (coronary artery disease) (Acute) Current use of anticoagulant therapy (Acute) Chronic atrial fibrillation (Acute) Benign essential hypertension (Acute) HLD (hyperlipidemia) (Acute) PAD (peripheral artery disease) (Acute) Bilateral lower extremity edema (Acute) Postural dizziness with near syncope (Acute) Gout (Acute) Shoulder pain, acute (Acute) Chest wall discomfort (Acute) Neuropathy (Acute) Vitamin D deficiency (Acute) Osteoarthritis (Acute) Osteoarthritis of knees, bilateral (Acute) Lumbar degenerative disc disease (Acute) Back pain (Acute) Past Medical History Medical History Back pain Benign essential hypertension Bilateral lower extremity edema CAD (coronary artery disease) Cancer of upper lobe of right lung (~2013) Chronic atrial fibrillation Congestive heart failure COPD (chronic obstructive pulmonary disease) Gout HLD (hyperlipidemia) Hypertension Lumbar degenerative disc disease Neuropathy Osteoarthritis Osteoarthritis of knees, bilateral PAD (peripheral artery disease) Physical deconditioning Smoker Type 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 Family history of problems with anesthesia: No Surgical History Surgical History History of angioplasty (~12/2020) History of back surgery History of brain surgery (~2003) History of cardiac cath (~02/2016) History of colonoscopy (~01/2001) History of lung surgery (~07/2013) History of lung surgery (~2019) History of partial colectomy (~01/2001) History of right knee surgery (~09/2005) History of thoracentesis (~09/2019) History of Problems with Anesthesia: No Social History Social History (Updated 02/28/21 @ 11:55 by Katina Pozo MD) Household Members: None Housing: House Are you a primary school childcare attendant to a significant other at home: No Do you presently have visiting nurse or other home services: No Alcohol intake: never Patient Tobacco Use Status: Current everyday Tobacco user Tobacco use type: Cigarette Cigarette Packs Per Day: 0.5 Cigarettes Per Day: 10 Years Smoked: 50 Smoked in Last 30 Days: Yes Second Hand Smoke Exposure: No Use of substances other than those prescribed or required for medical reasons: No Have you been hit, kicked, punched, or otherwise hurt by someone within the past year? If so, by whom?: No Advance Directives: Yes Advance Directives Information Provided: Yes Advance Directives on File: Yes Advance Directives Date on File: 11/29/20 Recently lost weight without trying: No Eating poorly because of decreased appetite: No Nutrition Risks: Surgical patient >75years service: No Current occupational status: retired [employer] Allergies Allergy/AdvReac Type Severity Reaction Status Date / Time No Known Allergies Allergy Unknown UNKNOWN Verified 02/13/21 11:44 [NO KNOWN ALLERGIES] Home Medications Medication Instructions Recorded Confirmed Last Taken Type atorvastatin 40 mg tablet 40 mg PO BEDTIME 07/10/20 02/22/21 11/27/20 History calcium carbonate 600 mg (1,500 1 tab PO DAILY 07/10/20 02/22/21 11/28/20 History mg)-vitamin D3 200 unit tablet multivitamin 1 tab PO DAILY 07/10/20 02/22/21 11/28/20 History nicotine 14 mg/24 hr daily 1 patch TRANSDERMAL DAILY 07/10/20 02/22/21 11/27/20 History transdermal patch vitamins A,C,O-gmel-bbujbt 14,320 1 cap PO DAILY 07/10/20 02/22/21 11/28/20 History unit-226 mg-200 unit capsule (PreserVision AREDS) acetaminophen 650 mg 650 mg PO Q12H PRN 11/28/20 02/22/21 11/27/20 History tablet,extended release aspirin 81 mg chewable tablet 81 mg PO DAILY 12/29/20 02/22/21 Unknown History Exam Exam Date and Time: February 27, 2021 0951 Height,Weight and Vital Signs: Height 6 ft 2 in Weight 71.214 kg Pertinent Lab Results Pertinent Lab Results: Laboratory Tests ? 12/12/20 12/12/20 12/16/20 ? 14:07 14:07 09:46 WBC ?5.6 ? ? Hgb ?11.8 L ? ? Hct ?36.7 L ? ? Plt Count ?220? D ? ? Sodium ? ?144 ? Potassium ? ?4.5 ? Chloride ? ?104 ? Carbon Dioxide ? ?35 H ? BUN ? ? ?22 H Creatinine ? ? ?1.00 Narrative Narrative: EKG 12/2020 Vent. Rate : 096 BPM ? ? Atrial Rate : 277 BPM ?? P-R Int : 000 ms? QRS Dur : 162 ms ? ? QT Int : 380 ms ? ? ? P-R-T Axes : 000 -86 038 degrees ?? QTc Int : 480 ms ? Atrial fibrillation Right bundle branch block Left anterior fascicular block Bifascicular block Abnormal ECG When compared with ECG of 28-NOV-2020 07:33, No significant changes seen ECHO 12/2020 Conclusions: - The left ventricular systolic function is severely decreased.? The visually estimated ejection fraction is between 25-30%.? ? ? - Severe biatrial enlargement. ? - There is mild calcification of the aortic valve. ? - There is mild to moderate mitral valve regurgitation.? - There is mild tricuspid valve regurgitation. ? - There is mild dilatation of the ascending aorta measuring 4.00 cm.? ? ? LIMITED ECHO 02/2021 Conclusions: - The left ventricular systolic function is moderately decreased. The calculated ejection fraction is 31% by biplane method. ? Per cardiology, Stress Test 12/2019 wnl Assessment and Plan Assessment Anesthesia Assessment: Chart Reviewed Final Anesthetic Review Family History of Problems with Anesthesia: No History of Problems with Anesthesia: No Documented by User: Katina Pozo MD 02/28/21 12:49 HPI - Anesthesia Eval Consult details Narrative: 81yo M for Endoscopic Bronchial Ultrasound Warfarin for afib. Last dose 02/26/21? Stable CHF and at cardiology OV 02/22/21. To continue with current regimen. Procedure previouly cx'd d/t equipment issues REPLACED BY [facility] Active Problems Active Problems: All Active Problems (Updated 02/26/21 @ 15:16 by Rafaela Headley PA-C) Cancer of upper lobe of right lung (Acute ~2013) Pure hypercholesterolemia (Acute) Solitary pulmonary nodule (Acute) Mediastinal lymphadenopathy (Acute) COPD (chronic obstructive pulmonary disease) (Acute) Smoker (Acute) Cardiomyopathy EF31% Congestive heart failure (Acute) CAD (coronary artery disease) (Acute) Current use of anticoagulant therapy (Acute) Chronic atrial fibrillation (Acute) Benign essential hypertension (Acute) HLD (hyperlipidemia) (Acute) PAD (peripheral artery disease) (Acute) Bilateral lower extremity edema (Acute) Postural dizziness with near syncope (Acute) Gout (Acute) Shoulder pain, acute (Acute) Chest wall discomfort (Acute) Neuropathy (Acute) Vitamin D deficiency (Acute) Osteoarthritis (Acute) Osteoarthritis of knees, bilateral (Acute) Lumbar degenerative disc disease (Acute) Back pain (Acute) Past Medical History Medical History Back pain Benign essential hypertension Bilateral lower extremity edema CAD (coronary artery disease) Cancer of upper lobe of right lung (~2013) Chronic atrial fibrillation Congestive heart failure COPD (chronic obstructive pulmonary disease) Gout HLD (hyperlipidemia) Hypertension Lumbar degenerative disc disease Neuropathy Osteoarthritis Osteoarthritis of knees, bilateral PAD (peripheral artery disease) Physical deconditioning Smoker Type 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 Surgical History Surgical History History of angioplasty (~12/2020) History of back surgery History of brain surgery (~2003) History of cardiac cath (~02/2016) History of colonoscopy (~01/2001) History of lung surgery (~07/2013) History of lung surgery (~2019) History of partial colectomy (~01/2001) History of right knee surgery (~09/2005) History of thoracentesis (~09/2019) Social History Social History (Updated 02/28/21 @ 11:55 by Katina Pozo MD) Household Members: None Housing: House Are you a primary school childcare attendant to a significant other at home: No Do you presently have visiting nurse or other home services: No Alcohol intake: never Patient Tobacco Use Status: Current everyday Tobacco user Tobacco use type: Cigarette Cigarette Packs Per Day: 0.5 Cigarettes Per Day: 10 Years Smoked: 50 Smoked in Last 30 Days: Yes Second Hand Smoke Exposure: No Use of substances other than those prescribed or required for medical reasons: No Have you been hit, kicked, punched, or otherwise hurt by someone within the past year? If so, by whom?: No Advance Directives: Yes Advance Directives Information Provided: Yes Advance Directives on File: Yes Advance Directives Date on File: 11/29/20 Recently lost weight without trying: No Eating poorly because of decreased appetite: No Nutrition Risks: Surgical patient >75years service: No Current occupational status: retired Meds Allergies Allergy/AdvReac Type Severity Reaction Status Date / Time No Known Allergies Allergy Unknown UNKNOWN Verified 02/13/21 11:44 [NO KNOWN ALLERGIES] Home Medications Medication Instructions Recorded Confirmed Last Taken Type atorvastatin 40 mg tablet 40 mg PO BEDTIME 07/10/20 02/22/21 11/27/20 History calcium carbonate 600 mg (1,500 1 tab PO DAILY 07/10/20 02/22/21 11/28/20 History mg)-vitamin D3 200 unit tablet multivitamin 1 tab PO DAILY 07/10/20 02/22/21 11/28/20 History nicotine 14 mg/24 hr daily 1 patch TRANSDERMAL DAILY 07/10/20 02/22/21 11/27/20 History transdermal patch vitamins A,C,E-bvwp-ixkojo 14,320 1 cap PO DAILY 07/10/20 02/22/21 11/28/20 History unit-226 mg-200 unit capsule (PreserVision AREDS) acetaminophen 650 mg 650 mg PO Q12H PRN 11/28/20 02/22/21 11/27/20 History tablet,extended release aspirin 81 mg chewable tablet 81 mg PO DAILY 12/29/20 02/22/21 Unknown History Exam Airway Mallampati Class: II TM Dist: >3cm Neck ROM: Full Denture: Upper and Lower Heart: Irregularly irregular Lungs: CTAB Assessment and Plan Assessment Anesthesia Assessment: Anesthesia Plan Discussed Final Anesthetic Review NPO: Yes ASA Class: IV Final Preanesthetic Review: No Changes in Pt Med Stat, Meds/Allgs Chart Reviewed, Consent Obtained/Reviewed and Anes Risks/Benef Reviewed Patient Risk: High Procedure Risk: Intermediate Assessment/Block/Sedation in SS: Assess/Block/Sedation-SS Anesthetic Plan Anesthetic Plan: GA Disposition: Extended PACU
[2021-02-28] VITALS (12 sets, daily range): BP systolic 111–134; BP diastolic 50–59; PULSE 65–81; RESP 16–20; TEMP 36.1–36.8; O2SAT 95–99
[2021-02-28] MEDS: Lactated Ringers 1,000 ML 20 ML IVCONT (10:15)
--- NOTE | 2021-02-28 10:24 | MHC.SHP ---
Pre-Procedural Eval Section A Date of Service: 02/28/21 The patient is an INPATIENT: No The History & Physical has been completed within 30 days and I have reviewed it.: No Section B Chief Complaint: Malignant neoplasm Details of Present Illness: Lung cancer status post lobectomy, now with PET active mediastinal lymph node Relevant Social History: Tobacco Use Present Medications: see Short Stay Collaborative assessment Medical History: Significant History (Lung cancer) History of Previous Operations: Relevant previous surgery/procedure and date(s) (Lobectomy) Allergies: Allergies Allergy/AdvReac Type Severity Reaction Status Date / Time No Known Allergies Allergy Unknown UNKNOWN Verified 02/13/21 11:44 [NO KNOWN ALLERGIES] Review of Systems Sugical H&P ROS: Negative: Constitution, Cardiovascular, Respiratory, Neurological, Psychiatric, Hem-Onc, Allergic/Immunologic, Gastrointestinal, Genitourinary, Musculoskeletal, Integumentary, Endocrine and Eyes/Ears/Nose/Throat Exam Surgical H&P Exam: Normal: HEENT, Normal: Heart, Normal: Lungs, Normal: Abdomen, Normal: Skin and Normal: Neurological and Significant Findings: Extremities (Trace bilateral lower extremity edema) Plan Diagnosis/Plan: Unchanged I have reviewed the history and physical and performed a pertinent physical examination on my patient. No changes have occurred unless specified.
[2021-02-28 10:42] LABS: INTERNATIONAL NORM RATIO 1.3 (0.9-1.1); Prothrombin Time 15.3 SEC (9.9-13.0)
--- NOTE | 2021-02-28 15:20 | P.BOP_ITS ---
Brief Operative Note Date of Service: 02/28/21 Pre-op diagnosis: Lung cancer Post-op diagnosis: same Procedure: EBUS bronchoscope advanced through ET tube with patient intubated for the procedure and through the tracheobronchial tree with no endobronchial lesions noted. Endobronchial ultrasound guided biopsy of 4R station performed with 6 passes. Slides sent to cytology/pathology. Patient tolerated procedure well and was returned to PACU in stable condition. Surgeon: Osvaldo Aguilar MD Anesthesia: GETA Was an Care Team Coordinator Scheduler used for this Procedure?: No Estimated blood loss (mL): 0 Pathology: other (Cytology/pathology) Condition: stable Disposition: PACU
== END 2021-02-28 15:31 | disposition home or self-care (01) ==
PROVIDERS: Nurse Practitioner; PCP Internal Medicine; Visit Provider Internal Medicine Pulmonary Disease
PROC: (CPT 31652; principal; 2021-02-28 11:00)
DX: C34.11 Malignant neoplasm of upper lobe, right bronchus or lung (principal); R91.1 Solitary pulmonary nodule; R59.0 Localized enlarged lymph nodes; I50.30 Unspecified diastolic (congestive) heart failure; I11.0 Hypertensive heart disease with heart failure; J44.9 Chronic obstructive pulmonary disease, unspecified; I48.20 Chronic atrial fibrillation, unspecified; E78.5 Hyperlipidemia, unspecified; E11.29 Type 2 diabetes mellitus with other diabetic kidney complication; Z79.01 Long term (current) use of anticoagulants; Z79.82 Long term (current) use of aspirin; Z79.899 Other long term (current) drug therapy; F17.210 Nicotine dependence, cigarettes, uncomplicated
CPT/HCPCS: 31652; 36415; 85610; 88172; 88173; 88177; 88305; J0171; J1100; J2370; J2405; J3010

== ENCOUNTER → 2021-03-06 10:10 | Outpatient (BNVA) | payer MEDICARE, SELFPAY | PROVIDERS: PCP Internal Medicine; Visit Provider Internal Medicine | DX: I48.20 Chronic atrial fibrillation, unspecified (principal); Z51.81 Encounter for therapeutic drug level monitoring; Z79.01 Long term (current) use of anticoagulants | CPT/HCPCS: 85610; 99211 ==

== ENCOUNTER → 2021-03-16 09:10 | Outpatient (BNVA) | payer MEDICARE, SELFPAY | PROVIDERS: PCP Internal Medicine; Visit Provider Surgery | DX: C34.11 Malignant neoplasm of upper lobe, right bronchus or lung (principal); R91.1 Solitary pulmonary nodule; I48.20 Chronic atrial fibrillation, unspecified; Z51.81 Encounter for therapeutic drug level monitoring; Z79.01 Long term (current) use of anticoagulants | CPT/HCPCS: 85610; 99211; 99212 ==

== ENCOUNTER 2021-03-23 12:00 | Day surgery (SDC) | payer MEDICARE, SELFPAY ==
--- NOTE | ~2021-03-23 | XR_ITS ---
EXAMINATION: XR CHEST CLINICAL INFORMATION: Post lung biopsy COMPARISON: Previous chest x-ray most recent December 2020 TECHNIQUE: Frontal view of the chest was obtained. FINDINGS: The cardiac and mediastinal contours are stable. The lungs are well inflated. There are postsurgical changes with surgical jesus in the right upper lung. There is right apical pleural thickening. The lungs are otherwise clear. There is no pleural effusion or pneumothorax. There are degenerative changes of the spine. XR/XR chest 1V IMPRESSION: No pneumothorax post right lung biopsy.
--- NOTE | ~2021-03-23 | CT_ITS ---
PROCEDURE: CT-GUIDED BIOPSY, LUNG CLINICAL INFORMATION: Malignant neoplasm right upper lobe. COMPARISON: PET/CT of 12/12/2020. TECHNIQUE: CT fluoroscopic core biopsy right apical lesion. This CT examination was performed using dose optimization techniques as appropriate, variously including the following: *Automated exposure control *Adjustment of mA and/or kV according to patient size (this includes techniques or standardized protocols for targeted exams where dose is matched to indication/reason for exam; i.e. extremities or head) *Use of iterative reconstruction technique DLP: 213 mGy-cm FINDINGS: Informed consent was obtained from the patient prior to the procedure. During this process, the procedure and potential alternatives were explained, along with the intended outcome and benefits. The risks of the procedure, as well as the risk of not doing the procedure, were discussed. The patient was given the opportunity to ask questions regarding the procedure and appeared competent to make medical decisions. A signed consent form which documents this discussion was placed in the medical record. Using sterile technique and CT fluoroscopic guidance three 18-gauge core biopsies were obtained from the soft tissue density adjacent to previous surgical site. Preliminary cytologic result was of an adequate specimen. No postprocedure pneumothorax is present. Patient tolerated procedure without difficulty. CT/CT biopsy lung RT IMPRESSION: Successful core biopsy right upper lobe lesion.
[2021-03-23 12:24] VITALS: BP 143/67; PULSE 81; RESP 18; TEMP 36.6; O2SAT 93; BMI 20.1
[2021-03-23 13:02] LABS: MANUAL DIFF FLAG NO
[2021-03-23 13:06] LABS: Basophils Percent Auto 0.7 % (0-2); Eosinophils Absolute Auto 0.3 X10*3/uL (0.0-0.4); Eosinophils Percent Auto 5.4 % (0-4); Hematocrit 37.4 % (42.0-52.0); Hemoglobin 12.5 g/dl (14.0-18.0); Imm Gran Abs Auto 0.01 X10*3/uL (0.00-0.03); Imm Gran Pct Auto 0.2 % (0.0-0.4); Lymphocytes Absolute Auto 1.3 X10*3/uL (1.2-4.9); Lymphocytes Percent Auto 24.2 % (20-40); Mean Corpuscular HGB Conc 33.4 g/dl (31.0-36.0); Mean Corpuscular Hemoglobin 33.5 pg (27.0-33.0); Mean Corpuscular Volume 100.3 fL (80.0-98.0); Mean Platelet Volume 10.7 fL (9.4-12.4); Monocytes Absolute Auto 0.7 X10*3/uL (0.1-1.2); Monocytes Percent Auto 12.7 % (2-11); Neutrophils Absolute Auto 3.1 x10*3/uL (2.0-8.3); Neutrophils Percent Auto 56.8 % (45-73); Platelet Count 142 X10*3/uL (160-400); Red Blood Count 3.73 X10*6/uL (4.60-5.80); Red Cell Distribution Width 14.6 % (11.0-16.0); White Blood Count 5.4 X10*3/uL (4.8-10.8)
[2021-03-23 13:12] LABS: INTERNATIONAL NORM RATIO 1.5 (0.9-1.1); Prothrombin Time 17.2 SEC (9.9-13.0)
[2021-03-23 13:14] LABS: Partial Thromboplastin Time 40.1 SEC (24.1-38.0)
[2021-03-23] MEDS: Lidocaine HCl 1 % MPF 5 ML VIAL 10 ML SUBCUT (15:26)
[2021-03-23 15:40] VITALS: BP 144/75; PULSE 93; RESP 16; TEMP 36.6; O2SAT 95
[2021-03-23 15:55] VITALS: PULSE 78; RESP 16; O2SAT 95
[2021-03-23 16:10] VITALS: BP 139/72; PULSE 85; RESP 16; O2SAT 95
[2021-03-23 16:40] VITALS: BP 133/63; PULSE 85; RESP 16; TEMP 36.6; O2SAT 95
== END 2021-03-23 17:36 | disposition home or self-care (01) ==
PROVIDERS: Radiology Diagnostic Radiology; PCP Internal Medicine; Visit Provider Radiology Diagnostic Radiology
DX: C34.11 Malignant neoplasm of upper lobe, right bronchus or lung (principal); R91.1 Solitary pulmonary nodule; I25.10 Atherosclerotic heart disease of native coronary artery without angina pectoris; Z98.61 Coronary angioplasty status; I11.0 Hypertensive heart disease with heart failure; I50.9 Heart failure, unspecified; F17.210 Nicotine dependence, cigarettes, uncomplicated; E11.29 Type 2 diabetes mellitus with other diabetic kidney complication; E78.5 Hyperlipidemia, unspecified; I48.20 Chronic atrial fibrillation, unspecified; Z79.01 Long term (current) use of anticoagulants; Z79.82 Long term (current) use of aspirin; Z79.899 Other long term (current) drug therapy
CPT/HCPCS: 32408; 36415; 71045; 85025; 85610; 85730; 88305; 88312; 88313; 88329; 88341; 88342; 99152; J2250; J3010

== ENCOUNTER → 2021-03-28 10:10 | Outpatient (BNVA) | payer MEDICARE, SELFPAY | PROVIDERS: PCP Internal Medicine; Visit Provider Internal Medicine | DX: I48.20 Chronic atrial fibrillation, unspecified (principal); Z51.81 Encounter for therapeutic drug level monitoring; Z79.01 Long term (current) use of anticoagulants | CPT/HCPCS: 85610; 99211 ==

== ENCOUNTER → 2021-04-02 09:21 | Outpatient (BNVA) | payer MEDICARE, SELFPAY | PROVIDERS: PCP Internal Medicine; Visit Provider Internal Medicine | DX: I48.20 Chronic atrial fibrillation, unspecified (principal); Z51.81 Encounter for therapeutic drug level monitoring; Z79.01 Long term (current) use of anticoagulants | CPT/HCPCS: 85610; 99211 ==

== ENCOUNTER → 2021-04-06 09:32 | Outpatient (BNVA) | payer MEDICARE, SELFPAY | PROVIDERS: PCP Internal Medicine; Visit Provider Surgery | DX: R91.1 Solitary pulmonary nodule (principal); R59.0 Localized enlarged lymph nodes; F17.210 Nicotine dependence, cigarettes, uncomplicated; Z79.899 Other long term (current) drug therapy; Z79.01 Long term (current) use of anticoagulants; Z85.118 Personal history of other malignant neoplasm of bronchus and lung | CPT/HCPCS: 99212 ==

== ENCOUNTER → 2021-04-11 10:14 | Outpatient (BNVA) | payer MEDICARE, SELFPAY | PROVIDERS: PCP Internal Medicine; Visit Provider Internal Medicine | DX: I48.20 Chronic atrial fibrillation, unspecified (principal); Z51.81 Encounter for therapeutic drug level monitoring; Z79.01 Long term (current) use of anticoagulants | CPT/HCPCS: 85610; 99211 ==

== ENCOUNTER → 2021-04-26 10:01 | Outpatient (BNVA) | payer MEDICARE, SELFPAY | PROVIDERS: PCP Internal Medicine; Visit Provider Internal Medicine | DX: I48.20 Chronic atrial fibrillation, unspecified (principal); Z51.81 Encounter for therapeutic drug level monitoring; Z79.01 Long term (current) use of anticoagulants | CPT/HCPCS: 85610; 99211 ==

== ENCOUNTER → 2021-05-14 10:05 | Outpatient (BNVA) | payer MEDICARE, SELFPAY | PROVIDERS: PCP Internal Medicine; Visit Provider Internal Medicine | DX: I48.20 Chronic atrial fibrillation, unspecified (principal); Z51.81 Encounter for therapeutic drug level monitoring; Z79.01 Long term (current) use of anticoagulants | CPT/HCPCS: 85610; 99211 ==

== ENCOUNTER 2021-05-23 08:54 | Outpatient (REF) | payer MEDICARE, SELFPAY ==
[2021-05-23 11:20] LABS: MANUAL DIFF FLAG NO
[2021-05-23 11:32] LABS: Appearance Urine CLEAR; Color Urine YELLOW; Glucose Urine UA NEG (NEG); Leukocyte Esterase Urine NEG (NEG); Nitrite Urine NEG (NEG); Specific Gravity - Urine 1.015 (1.005-1.025); UACC Culture Trigger NO; Urine Blood TRACE (NEG); Urine Ketones NEG (NEG); Urine Protein NEG (NEG-TRACE)
[2021-05-23 11:33] LABS: Basophils Absolute Auto 0.1 X10*3/uL (0.0-0.2); Eosinophils Absolute Auto 0.5 X10*3/uL (0.0-0.4); Eosinophils Percent Auto 8.8 % (0-4); Hematocrit 38.6 % (42.0-52.0); Hemoglobin 12.7 g/dl (14.0-18.0); Imm Gran Abs Auto 0.01 X10*3/uL (0.00-0.03); Imm Gran Pct Auto 0.2 % (0.0-0.4); Lymphocytes Absolute Auto 1.7 X10*3/uL (1.2-4.9); Lymphocytes Percent Auto 28.2 % (20-40); Mean Corpuscular HGB Conc 32.9 g/dl (31.0-36.0); Mean Corpuscular Hemoglobin 33.5 pg (27.0-33.0); Mean Corpuscular Volume 101.8 fL (80.0-98.0); Mean Platelet Volume 11.7 fL (9.4-12.4); Monocytes Absolute Auto 0.7 X10*3/uL (0.1-1.2); Monocytes Percent Auto 10.7 % (2-11); Neutrophils Absolute Auto 3.2 x10*3/uL (2.0-8.3); Neutrophils Percent Auto 51.1 % (45-73); Platelet Count 165 X10*3/uL (160-400); Red Blood Count 3.79 X10*6/uL (4.60-5.80); Red Cell Distribution Width 14.9 % (11.0-16.0); White Blood Count 6.2 X10*3/uL (4.8-10.8)
[2021-05-23 12:03] LABS: RBC Urine 0-2 /HPF (0); WBC Urine 0 /HPF (0-4)
[2021-05-23 12:12] LABS: TSH reflex Free T4 1.06 uIU/mL (0.32-4.0); Vitamin D 25-OH Total 28.9 ng/mL (>30)
[2021-05-23 12:18] LABS: Alanine Aminotransferase 16 U/L (0-40); Albumin Level 3.8 g/dL (3.5-5.0); Alkaline Phosphatase 95 U/L (39-117); Anion Gap 12 (12-20); Aspartate Amino Transferase 21 U/L (5-37); Bilirubin Total 0.9 mg/dL (0.0-1.0); Blood Urea Nitrogen 35 mg/dL (9-16); Calcium 9.1 mg/dL (8.4-10.2); Carbon Dioxide 31 mmol/L (22-29); Chloride 105 mmol/L (96-108); Cholesterol 99 mg/dL; Estimated Glomerular Filt Rate > 60; Glucose Fasting 99 mg/dL (60-99); HDL Cholesterol 43 mg/dL; LDL Cholesterol Calculated 43 mg/dl; Potassium 4.1 mmol/L (3.3-5.1); Sodium 144 mmol/L (135-145); Total Protein 6.5 g/dL (6.5-8.0); Triglycerides 69 mg/dL
[2021-05-23 12:44] LABS: Uric Acid 5.7 mg/dL (3.4-7.0)
== END 2021-05-23 08:55 | disposition home or self-care (01) ==
LOC: HO.HMGCLDS 08:54
PROVIDERS: PCP Internal Medicine; Visit Provider Internal Medicine
DX: I10 Essential (primary) hypertension (principal); E78.00 Pure hypercholesterolemia, unspecified; E55.9 Vitamin D deficiency, unspecified; M10.9 Gout, unspecified
CPT/HCPCS: 36415; 80053; 80061; 81001; 82306; 84443; 84550; 85025

== ENCOUNTER → 2021-05-24 08:56 | Outpatient (BNVA) | payer MEDICARE, SELFPAY | PROVIDERS: PCP Internal Medicine; Referring Provider Internal Medicine; Visit Provider Internal Medicine Cardiovascular Disease | DX: I48.20 Chronic atrial fibrillation, unspecified (principal); I50.20 Unspecified systolic (congestive) heart failure | CPT/HCPCS: 99212 ==

== ENCOUNTER → 2021-05-28 09:57 | Outpatient (BNVA) | payer MEDICARE, SELFPAY | PROVIDERS: PCP Internal Medicine; Visit Provider Internal Medicine | DX: I48.20 Chronic atrial fibrillation, unspecified (principal); Z51.81 Encounter for therapeutic drug level monitoring; Z79.01 Long term (current) use of anticoagulants | CPT/HCPCS: 85610; 99211 ==

== ENCOUNTER 2021-06-11 10:33 | Outpatient (REF) | payer MEDICARE, SELFPAY ==
--- NOTE | ~2021-06-11 | XR_ITS ---
EXAMINATION: XR KNEE, LEFT CLINICAL INFORMATION: Joint effusion COMPARISON: Left knee x-rays 04/06/2006 TECHNIQUE: Four views of the left knee. FINDINGS: No fracture or dislocation. Moderate sized suprapatellar joint effusion is present. There is moderate narrowing of the medial and lateral joint spaces with mild to moderate narrowing of the patellofemoral joint space. Small tricompartmental marginal osteophytes are present. Prominent vascular calcifications are noted. XR/XR knee LT 4V IMPRESSION: Moderate joint effusion in this setting of moderate degenerative changes of the left knee.
== END 2021-06-11 10:34 | disposition home or self-care (01) ==
LOC: HO.HMGCX 10:33
PROVIDERS: Visit Provider Internal Medicine
DX: M25.462 Effusion, left knee (principal)
CPT/HCPCS: 73564

== ENCOUNTER → 2021-06-15 10:15 | Outpatient (REF) | payer MEDICARE, SELFPAY ==
--- NOTE | 2021-06-15 10:19 | CA_ITS ---
Transthoracic Echocardiogram Patient (Last, First, Middle): Scottie Encinas J Gender: Male Date of : 1940 Age: 81 Procedure Date: 06/15/2021 Procedure Type: Transthoracic Echocardiogram Location: OP Height: 187.96 cm Weight: 71.67 kg BSA: 1.97 m2 Heart Rate: bpm BP: 106 / 65 mmHg Claims Service Adjustor: LYNDA Referring MD: Honorio Hernández MD Symptoms: I50.9 - Heart failure, unspecified Study Quality: Good Conclusions: - Limited echocardiogram. - Normal left ventricular size and systolic function. There is mildly increased left ventricular wall thickness. The visually estimated ejection fraction is between 55-60%. Findings Left Ventricle Normal left ventricular size and systolic function. There is mildly increased left ventricular wall thickness. The visually estimated ejection fraction is between 55-60%. Diastolic function is indeterminate on the basis of available data. Right Ventricle Normal right ventricular cavity size and systolic function. Atria The left atrium is severely dilated. Pericardium/Pleural There is no evidence of pericardial effusion. Prior Study Comparison Changes noted compared to prior study dated: 02/19/2021. LVEF is normal now Measurements 2D Linear Measurements IVSd: 1.22 0.6-0.9/0.6-1.0 cm LVIDd: 5.37 3.9-5.3/4.2-5.9 cm LVIDd Index: 2.73 2.4-3.2/2.2-3.1 cm/m2 LVIDs: 3.81 2.0-3.6 cm LVPWd: 1.33 0.7-1.1 cm LA Diam: 4.30 2.7-3.8/3.0-4.0 cm LAIDs Index: 2.18 1.5-2.3 cm/m2 LV Mass: 355.62 67-162/88-224 g LV Mass Index: 180.52 43-95/49-115 g/m2 2D Systolic Function EF 4C: 59.40 >55% EF 2C: 49.50 >55% EF BiP: 54.60 >55% Mitral Valve E'Lateral: 11.50 E'Medial: 8.16 Diastolic Function E'Medial: 8.16 E' Laterial: 11.50 Updated in Other Vendor System with Status of Final Nick Ramesh MD electronically signed on 06/17/2021 11:28:11 AM with status of Final
== END ==
LOC: HO.CARD 10:15
PROVIDERS: PCP Internal Medicine; Visit Provider Internal Medicine Cardiovascular Disease
DX: R07.89 Other chest pain (principal); I42.9 Cardiomyopathy, unspecified; I50.9 Heart failure, unspecified; I48.20 Chronic atrial fibrillation, unspecified; Z51.81 Encounter for therapeutic drug level monitoring; Z79.01 Long term (current) use of anticoagulants
CPT/HCPCS: 85610; 93308; 99211

== ENCOUNTER 2021-06-20 10:54 | Inpatient (IN) | payer MEDICARE, SELFPAY ==
[2021-06-20] VITALS (15 sets, daily range): BP systolic 101–130; BP diastolic 40–52; PULSE 53–91; RESP 16–20; TEMP 36.1–36.6; O2SAT 94–99; BMI 20.2; BMI 22.3
--- NOTE | ~2021-06-20 | XR_ITS ---
EXAMINATION: XR CHEST CLINICAL INFORMATION: Weakness. Question pneumonia. COMPARISON: March 23, 2021 TECHNIQUE: AP portable view of the chest was obtained. FINDINGS: There is hyperinflation of the lungs with diminished peripheral vascularity and prominent central pulmonary arteries consistent with COPD. Patient is status post previous right upper lobe surgery. No confluent parenchymal disease is appreciated. Heart normal size. No evidence of pulmonary edema. No pneumothorax or pleural effusion. XR/XR chest 1V IMPRESSION: COPD. Status post previous right upper lung surgery. No evidence of significant acute parenchymal disease.
--- NOTE | 2021-06-20 11:44 | ECG_ITS ---
Test Reason : DIZZINESS Blood Pressure : / mmHG Vent. Rate : 071 BPM Atrial Rate : 000 BPM P-R Int : 000 ms QRS Dur : 164 ms QT Int : 428 ms P-R-T Axes : 000 -85 056 degrees QTc Int : 465 ms Atrial fibrillation with premature ventricular or aberrantly conducted complexes Right bundle branch block Left anterior fascicular block Bifascicular block Abnormal ECG When compared with ECG of 30-NOV-2020 15:34, No significant change was found Referred By: Oswaldo Jovel Electronically Signed By:WILIAM WALLS MD
[2021-06-20 12:09] LABS: MANUAL DIFF FLAG NO
[2021-06-20] MEDS: Pantoprazole Sodium 40 MG/10 ML VIAL 80 MG IVPUSH (12:09)
[2021-06-20 12:12] LABS: Basophils Percent Auto 0.5 % (0-2); Eosinophils Percent Auto 0.4 % (0-4); Imm Gran Abs Auto 0.07 X10*3/uL (0.00-0.03); Imm Gran Pct Auto 0.9 % (0.0-0.4); Lymphocytes Absolute Auto 1.1 X10*3/uL (1.2-4.9); Lymphocytes Percent Auto 14.4 % (20-40); Mean Corpuscular HGB Conc 32.4 g/dl (31.0-36.0); Mean Corpuscular Hemoglobin 34.5 pg (27.0-33.0); Mean Corpuscular Volume 106.2 fL (80.0-98.0); Mean Platelet Volume 10.9 fL (9.4-12.4); Monocytes Absolute Auto 0.6 X10*3/uL (0.1-1.2); Monocytes Percent Auto 7.5 % (2-11); NRBC Pct Auto 0.3 /100WBC (0.0-0.2); Neutrophils Absolute Auto 5.7 x10*3/uL (2.0-8.3); Neutrophils Percent Auto 76.3 % (45-73); Platelet Count 195 X10*3/uL (160-400); Red Blood Count 1.77 X10*6/uL (4.60-5.80); White Blood Count 7.4 X10*3/uL (4.8-10.8)
[2021-06-20 12:19] LABS: INTERNATIONAL NORM RATIO 4.6 (0.9-1.1); Prothrombin Time 53.8 SEC (9.9-13.0)
[2021-06-20] MEDS: 0.9 % Sodium Chloride 1,000 ML 250 ML IV (12:19)
[2021-06-20 12:22] LABS: Hematocrit 18.8 % (42.0-52.0); Hemoglobin 6.1 g/dl (14.0-18.0); Partial Thromboplastin Time 41.1 SEC (24.1-38.0)
[2021-06-20 12:24] LABS: OBS Int Ctl Valid YES; OBS1 POSITIVE (NEGATIVE)
--- NOTE | 2021-06-20 12:24 | PC.NURSE ---
pt alert and oriented, skin pwd, but pt's fingers are blue/dusky in color pt reports this is normal for him, pt is a daily smoker about 1/2 pack a day, pt denies pain but reports feeling dizzy when standing up or walking, room spins but also states having really dark stools for one-two weeks pt takes warfarin for a-fib. pt is currently in a-fib but rate controlled in the 70's
[2021-06-20 12:29] LABS: Alanine Aminotransferase 12 U/L (0-40); Albumin Level 3.2 g/dL (3.5-5.0); Alkaline Phosphatase 65 U/L (39-117); Anion Gap 11 (12-20); Aspartate Amino Transferase 18 U/L (5-37); Bilirubin Total 0.4 mg/dL (0.0-1.0); Blood Urea Nitrogen 72 mg/dL (9-16); Calcium 8.5 mg/dL (8.4-10.2); Carbon Dioxide 29 mmol/L (22-29); Chloride 109 mmol/L (96-108); Creatinine Clr Calc Pharmacy 48.9; Estimated Glomerular Filt Rate 59; Glucose Random 102 mg/dL (60-115); Lipase 45 U/L (8-78); Potassium 4.7 mmol/L (3.3-5.1); Sodium 144 mmol/L (135-145); Total Protein 5.3 g/dL (6.5-8.0)
--- NOTE | 2021-06-20 12:30 | ED.DIZZY ---
HPI - Dizziness General Chief Complaint: Dizziness Stated Complaint: DIZZY,LOW BP 75/42, 94% RA,FULLY VACC PER EMS Time Seen by Provider: 06/20/21 11:20 Source: patient Mode of arrival: EMS Limitations: no limitations History of Present Illness HPI Narrative: 81-year-old male who presents emergency department for evaluation of dizziness. The patient states that this morning when he got out of bed he felt dizzy and off balance. He states that he had hold on to the hogan in order to get into the bathroom and then he had to hold onto the bathroom rails. He states that his systolic blood pressure normally runs in the 120-130 range. He took his blood pressure and the systolic blood pressure was 70. He states that any time he stood up he felt off balance. He denied any room spinning sensation. The patient states that last week he went to the urgent care clinic for difficulty walking and was diagnosed with left knee degenerative joint disease. He states that he has been taking Motrin on a regular basis since that visit with no relief his pain. He states that over the past 2-3 weeks however he has noticed dark black diarrheal stools. He denied any abdominal pain. He denied fever but he states that occasionally gets chills. He states that he has occasional cough productive of phlegm. He denied chest pain, shortness of breath, nausea or vomiting. Patient states that he has received 2 COVID-19 vaccines and a booster shot be does not recall which vaccine he received. Related Data Home Medications Medication Instructions Recorded Confirmed calcium carbonate 600 mg-vitamin 1 tab PO DAILY 07/10/20 06/18/21 D3 5 mcg (200 unit) tablet multivitamin 1 tab PO DAILY 07/10/20 06/18/21 nicotine 14 mg/24 hr daily 1 patch TRANSDERMAL DAILY 07/10/20 06/18/21 transdermal patch vitamins A,C,H-nssf-oummdc 14,320 1 cap PO DAILY 07/10/20 06/18/21 unit-226 mg-200 unit capsule (PreserVision AREDS) acetaminophen 650 mg 650 mg PO Q12H PRN 11/28/20 06/18/21 tablet,extended release aspirin 81 mg chewable tablet 81 mg PO DAILY 12/29/20 06/18/21 vitamins A,C,S-uwgy-xocvdc 14,320 1 cap PO ONCE cap 06/11/21 06/18/21 unit-226 mg-200 unit capsule (PreserVision AREDS) Previous Rx's Medication Instructions Recorded albuterol sulfate 90 mcg/actuation 2 puff INHALATION Q6H PRN #6.7 g 11/30/20 aerosol inhaler (Ventolin HFA) folic acid 1 mg tablet 1 mg PO DAILY #90 tab 04/16/21 metoprolol succinate 100 mg 100 mg PO DAILY 60 Days #60 tab 04/17/21 tablet,extended release 24 hr potassium chloride 20 mEq 20 meq PO DAILY #90 tab 04/17/21 tablet,extended release(part/cryst) atorvastatin 40 mg tablet 40 mg PO DAILY #90 tab 05/23/21 febuxostat 40 mg tablet 40 mg PO DAILY #30 tab 05/23/21 digoxin 250 mcg (0.25 mg) tablet 250 mcg PO DAILY 90 Days #90 tab 05/29/21 metoprolol succinate 25 mg 25 mg PO BEDTIME 90 Days #90 cap 05/29/21 tablet,extended release 24 hr valsartan 40 mg tablet (Diovan) 40 mg PO DAILY 90 Days #90 tab 05/29/21 warfarin 1 mg tablet (Jantoven) 1 - 3 mg PO DAILY 90 Days #270 tab 05/29/21 furosemide 40 mg tablet 40 mg PO DAILY #60 tab 06/04/21 meloxicam 15 mg tablet 15 mg PO DAILY #7 tab 06/19/21 Allergies Allergy/AdvReac Type Severity Reaction Status Date / Time No Known Allergies Allergy Unknown UNKNOWN Verified 06/19/21 10:18 [NO KNOWN ALLERGIES] Review of Systems Review of Systems: Yes all other systems are reviewed and are negative FOR[facility]LY [facility] Past Medical History FOR[facility]LY [facility] Narrative: Social history: The patient lives alone. He smokes 1/2 pack of cigarettes per day greater than 50 years, denies alcohol use, denies drug use. Medical History Back pain Benign essential hypertension Bilateral lower extremity edema CAD (coronary artery disease) Cancer of upper lobe of right lung (~2013) Chronic atrial fibrillation Congestive heart failure COPD (chronic obstructive pulmonary disease) Gout Heart failure with reduced ejection fraction HLD (hyperlipidemia) Lumbar degenerative disc disease Neuropathy Osteoarthritis Osteoarthritis of knees, bilateral PAD (peripheral artery disease) Physical deconditioning Smoker Type 2 diabetes mellitus with other diabetic kidney complication Vitamin D deficiency Wears dentures Surgical History History of angioplasty (~12/2020) History of back surgery History of brain surgery (~2003) History of bronchoscopy (~2020) History of cardiac cath (~02/2016) History of colonoscopy (~01/2001) History of lung surgery (~07/2013) History of lung surgery (~2019) History of partial colectomy (~01/2001) History of right knee surgery (~09/2005) History of thoracentesis (~09/2019) Family History Family History Mother No problems noted. Social History Social History Household Members: None Housing: House Are you a primary primary care provider to a significant other at home: No Do you presently have visiting nurse or other home services: No Alcohol intake: never Patient Tobacco Use Status: Current everyday Tobacco user Tobacco use type: Cigarette Cigarette Packs Per Day: 0.5 Cigarettes Per Day: 10 Years Smoked: 50 Second Hand Smoke Exposure: No Use of substances other than those prescribed or required for medical reasons: No Advance Directives: Yes Advance Directives on File: Yes Advance Directives Date on File: 11/29/20 service: No Current occupational status: retired Physical Exam Vital Signs: Vital Signs: Last Vital Signs Temp 97.7 F 06/20/21 13:25 Pulse 78 06/20/21 13:25 Resp 18 06/20/21 13:25 BP 125/41 L 06/20/21 13:25 Pulse Ox 97 06/20/21 13:20 BMI result Body Mass Index 22.3 Const: Other: Awake, alert, elderly male, very pleasant cooperative, answers all questions appropriately, does not appear to be in distress HENMT: Head: Yes normal to inspection, Yes normocephalic and Yes atraumatic Ears: external ears normal General nose exam: Normal external nose present Face and sinus: Yes normal facial exam Mouth: Normal oral and palatal mucosa present Throat: Yes posterior oropharynx normal Eyes: General: appearance normal, both eyes and all related structures Pupils: Equal, round and reactive pupils present Neck: Neck: Yes normal visual inspection, Yes no lymphadenopathy, Yes trachea midline and Yes supple Chest: Chest palpation & inspection: normal inspection of the chest and normal palpation of entire chest wall Resp: Effort & Inspection: normal respiratory effort and able to speak in complete sentences Auscultation: clear to auscultation bilaterally Cardio: Rate: regular rate Rhythm: regular rhythm Heart sounds: S1 normal heart sound present, S2 normal heart sound present and no murmurs GI: Inspection: Yes normal to inspection Palpation (GI): Soft to palpation, nontender and no guarding Auscultation: normal bowel sounds Rectal Exam - Male: Yes Visual inspection abnormal (Dark stool and his adult diaper), Yes normal sphincter tone and Yes heme positive stool (Loose, dark, black stool) : General: Yes no CVA tenderness Back/Spine/Pelvis: Back: no CVA tenderness Skin: General skin exam: no rashes or lesions noted Neuro: Cranial nerves: Yes CN's II-XII intact bilaterally and Yes Equal, round and reactive pupils present Cognition (Neuro): normal cognition Motor exam (neuro): 5/5 motor strength present throughout Extrem: General: Yes normal to inspection Psych: Appearance: grossly normal Speech and movement: Normal speech and movement present Affect: normal affect Attitude: cooperative Thought process: Normal thought process present Thought content: Normal thought content present Course Course Course Narrative: 81-year-old male who presents emergency department for evaluation of dizziness which began this morning and 2-3 weeks of dark stools. The patient has been having left knee pain and was diagnosed with degenerative joint disease approximately 1 week prior and states he has been taking ibuprofen on a regularly with no relief of his pain. The patient's dizziness started this morning and he did document a low systolic blood pressure of 70 he states that his systolic blood pressures usually run in the 120-130 range. Vital signs here in the emergency department initially revealed a blood pressure of 101/48 and repeat blood pressure is 111/44. Nurses reported that he was orthostatic on his vital signs. Abdominal exam revealed no tenderness. Rectal exam revealed dark lose black stool which was strongly Hemoccult positive. Patient most likely has an upper GI bleed from his NSAID use, he is also on warfarin for atrial fibrillation. Laboratory evaluation was ordered. I ordered a normal saline bolus of 250 cc, the patient has CHF with EF of 55-60% with mildly increased left ventricular wall thickness on echocardiogram dated 06/15/2021. I also ordered 2 units of packed red blood cells to be transfused dizziness near available. 1238: H&H was low at 6.1 and 18.2 this compared to an H&H of 12.7 and 38.6 on 05/23/2021. BUN is markedly elevated at 72 suggesting as an upper GI bleed. PT/INR and PTT were elevated. INR was significantly elevated at 4.6 with a PT of 53.8 and PTT of 41.1. COVID-19 was negative. The patient has a significant upper GI bleed with a potentially life-threatening bleed given his significant drop in his hemoglobin and hematocrit compared to his baseline. I did order Protonix 80 mg IV. I will order Kcentra 2500 units IV and vitamin K 5 mg IV . Given his high risk for from this GI bleed, I believe that his warfarin therapy needs to be fully reversed at this time. The patient did give me informed written consent for both the packed red blood cells and Kcentra. I will discuss further management with the fig bar machine operator and the covering hospitalist. 1328: Case was discussed a retired tax with the covering hospitalist, Dr. Petit and the patient will be admitted to the hospital service for further treatment. I did discuss the patient's presentation with the covering fig bar machine operator, Dr. Gr who recommended that the patient be resuscitated with packed red blood cells, he agreed with INR reversal with Kcentra and he stated the patient will most likely need endoscopy once he is fully resuscitated and his INR is reversed. MDM - Dizziness Lab Data Result diagrams: 06/20/21 12:04 06/20/21 12:04 Labs: Lab Results 06/20/21 06/20/21 06/20/21 Range/Units 12:04 12:04 12:04 WBC 7.4 (4.8-10.8) X10*3/uL RBC 1.77 L D (4.60-5.80) X10*6/uL Hgb 6.1 L* D (14.0-18.0) g/dl Hct 18.8 L* D (42.0-52.0) % MCV 106.2 H (80.0-98.0) fL MCH 34.5 H (27.0-33.0) pg MCHC 32.4 (31.0-36.0) g/dl RDW 16.0 (11.0-16.0) % Plt Count 195 (160-400) X10*3/uL MPV 10.9 (9.4-12.4) fL Immature Gran % (Auto) 0.9 H (0.0-0.4) % Neut % (Auto) 76.3 H (45-73) % Lymph % (Auto) 14.4 L (20-40) % [place] % (Auto) 7.5 (2-11) % Eos % (Auto) 0.4 (0-4) % Baso % (Auto) 0.5 (0-2) % Lymph # (Auto) 1.1 L (1.2-4.9) X10*3/uL [place] # (Auto) 0.6 (0.1-1.2) X10*3/uL Eos # (Auto) 0.0 (0.0-0.4) X10*3/uL Baso # (Auto) 0.0 (0.0-0.2) X10*3/uL Abs Immat Gran (auto) 0.07 H (0.00-0.03) X10*3/uL Absolute Neuts (auto) 5.7 (2.0-8.3) x10*3/uL Absolute Nucleated RBC 0.020 H (0.0-0.012) X10*3/uL Nucleated RBC % (auto) 0.3 H (0.0-0.2) /100WBC PT 53.8 H (9.9-13.0) SEC INR 4.6 H D (0.9-1.1) APTT 41.1 H (24.1-38.0) SEC Sodium 144 (135-145) mmol/L Potassium 4.7 (3.3-5.1) mmol/L Chloride 109 H (96-108) mmol/L Carbon Dioxide 29 (22-29) mmol/L Anion Gap 11 L (12-20) BUN 72 H D (9-16) mg/dL Creatinine 1.18 (0.5-1.4) mg/dL Estim Creat Clear Calc 48.9 Estimated GFR 59 Random Glucose 102 (60-115) mg/dL Calcium 8.5 D (8.4-10.2) mg/dL Total Bilirubin 0.4 (0.0-1.0) mg/dL AST 18 (5-37) U/L ALT 12 (0-40) U/L Alkaline Phosphatase 65 D (39-117) U/L Troponin I High Sens (<3.5-35.0) ng/L Total Protein 5.3 L (6.5-8.0) g/dL Albumin 3.2 L (3.5-5.0) g/dL Lipase 45 (8-78) U/L Urine Color Urine Appearance Urine pH (5.0-8.0) Ur Specific [place] (1.005-1.025) Urine Protein (NEG-TRACE) MG/DL Urine Glucose (UA) (NEG) MG/DL Urine Ketones (NEG) MG/DL Urine Blood (NEG) Urine Nitrite (NEG) Ur Leukocyte Esterase (NEG) Stool Occult Blood (NEGATIVE) COVID-19 (DAMASO) (Negative) COVID-19 Clin Com Blood Type Antibody Screen Crossmatch 06/20/21 06/20/21 06/20/21 Range/Units 12:04 12:04 12:04 WBC (4.8-10.8) X10*3/uL RBC (4.60-5.80) X10*6/uL Hgb (14.0-18.0) g/dl Hct (42.0-52.0) % MCV (80.0-98.0) fL MCH (27.0-33.0) pg MCHC (31.0-36.0) g/dl RDW (11.0-16.0) % Plt Count (160-400) X10*3/uL MPV (9.4-12.4) fL Immature Gran % (Auto) (0.0-0.4) % Neut % (Auto) (45-73) % Lymph % (Auto) (20-40) % [place] % (Auto) (2-11) % Eos % (Auto) (0-4) % Baso % (Auto) (0-2) % Lymph # (Auto) (1.2-4.9) X10*3/uL [place] # (Auto) (0.1-1.2) X10*3/uL Eos # (Auto) (0.0-0.4) X10*3/uL Baso # (Auto) (0.0-0.2) X10*3/uL Abs Immat Gran (auto) (0.00-0.03) X10*3/uL Absolute Neuts (auto) (2.0-8.3) x10*3/uL Absolute Nucleated RBC (0.0-0.012) X10*3/uL Nucleated RBC % (auto) (0.0-0.2) /100WBC PT (9.9-13.0) SEC INR (0.9-1.1) APTT (24.1-38.0) SEC Sodium (135-145) mmol/L Potassium (3.3-5.1) mmol/L Chloride (96-108) mmol/L Carbon Dioxide (22-29) mmol/L Anion Gap (12-20) BUN (9-16) mg/dL Creatinine (0.5-1.4) mg/dL Estim Creat Clear Calc Estimated GFR Random Glucose (60-115) mg/dL Calcium (8.4-10.2) mg/dL Total Bilirubin (0.0-1.0) mg/dL AST (5-37) U/L ALT (0-40) U/L Alkaline Phosphatase (39-117) U/L Troponin I High Sens 12.6 (<3.5-35.0) ng/L Total Protein (6.5-8.0) g/dL Albumin (3.5-5.0) g/dL Lipase (8-78) U/L Urine Color Urine Appearance Urine pH (5.0-8.0) Ur Specific [place] (1.005-1.025) Urine Protein (NEG-TRACE) MG/DL Urine Glucose (UA) (NEG) MG/DL Urine Ketones (NEG) MG/DL Urine Blood (NEG) Urine Nitrite (NEG) Ur Leukocyte Esterase (NEG) Stool Occult Blood (NEGATIVE) COVID-19 (DAMASO) Negative (Negative) COVID-19 Clin Com See Note Blood Type A Positive Antibody Screen NEGATIVE Crossmatch See Detail 06/20/21 06/20/21 Range/Units 12:04 12:17 WBC (4.8-10.8) X10*3/uL RBC (4.60-5.80) X10*6/uL Hgb (14.0-18.0) g/dl Hct (42.0-52.0) % MCV (80.0-98.0) fL MCH (27.0-33.0) pg MCHC (31.0-36.0) g/dl RDW (11.0-16.0) % Plt Count (160-400) X10*3/uL MPV (9.4-12.4) fL Immature Gran % (Auto) (0.0-0.4) % Neut % (Auto) (45-73) % Lymph % (Auto) (20-40) % [place] % (Auto) (2-11) % Eos % (Auto) (0-4) % Baso % (Auto) (0-2) % Lymph # (Auto) (1.2-4.9) X10*3/uL [place] # (Auto) (0.1-1.2) X10*3/uL Eos # (Auto) (0.0-0.4) X10*3/uL Baso # (Auto) (0.0-0.2) X10*3/uL Abs Immat Gran (auto) (0.00-0.03) X10*3/uL Absolute Neuts (auto) (2.0-8.3) x10*3/uL Absolute Nucleated RBC (0.0-0.012) X10*3/uL Nucleated RBC % (auto) (0.0-0.2) /100WBC PT (9.9-13.0) SEC INR (0.9-1.1) APTT (24.1-38.0) SEC Sodium (135-145) mmol/L Potassium (3.3-5.1) mmol/L Chloride (96-108) mmol/L Carbon Dioxide (22-29) mmol/L Anion Gap (12-20) BUN (9-16) mg/dL Creatinine (0.5-1.4) mg/dL Estim Creat Clear Calc Estimated GFR Random Glucose (60-115) mg/dL Calcium (8.4-10.2) mg/dL Total Bilirubin (0.0-1.0) mg/dL AST (5-37) U/L ALT (0-40) U/L Alkaline Phosphatase (39-117) U/L Troponin I High Sens (<3.5-35.0) ng/L Total Protein (6.5-8.0) g/dL Albumin (3.5-5.0) g/dL Lipase (8-78) U/L Urine Color YELLOW Urine Appearance CLEAR Urine pH 5.5 (5.0-8.0) Ur Specific [place] 1.020 (1.005-1.025) Urine Protein NEG (NEG-TRACE) MG/DL Urine Glucose (UA) NEG (NEG) MG/DL Urine Ketones NEG (NEG) MG/DL Urine Blood NEG (NEG) Urine Nitrite NEG (NEG) Ur Leukocyte Esterase NEG (NEG) Stool Occult Blood POSITIVE (NEGATIVE) COVID-19 ([facility]AMASO) (Negative) COVID-19 Clin Com Blood Type Antibody Screen Crossmatch ECG Data Attestation: I personally reviewed and interpreted this ECG as follows: Interpretation: 1141: Atrial fibrillation with a rate of 71, normal QRS duration and QTC interval, occasional PVC, no ST segment elevation, no ST segment depression, right bundle-branch block. Critical Care Time Critical Care Time Critical Care Time: Yes Total Critical Care Time: 80 Attestation: Critical Care: The patient was critically ill with a high probability of imminent or life threatening deterioration. I spent greater than 30 minutes of discontinuous time evaluating the patient,delivering critical care at the bedside, discussing and evaluating pertinent data with consultants. Critical care time does not include time spent performing separately billable procedures or teaching. Total time spent performing critical care was 80 minutes. Discharge Plan Discharge Patient Disposition: Admitted As Inpatient Prescriptions: No Action aspirin 81 mg tablet,chewable 81 mg PO DAILY 0RF folic acid 1 mg tablet 1 mg PO DAILY Qty: 90 1RF potassium chloride 20 mEq tablet,ER particles/crystals 20 meq PO DAILY Qty: 90 2RF metoprolol succinate 100 mg tablet extended release 24 hr 100 mg PO DAILY 60 Days Qty: 60 3RF atorvastatin 40 mg tablet 40 mg PO DAILY Qty: 90 3RF febuxostat 40 mg tablet 40 mg PO DAILY Qty: 30 5RF furosemide 40 mg tablet 40 mg PO DAILY Qty: 60 0RF multivitamin Tablet 1 tab PO DAILY 0RF nicotine 14 mg/24 hr Patch 24 Hour 1 patch TRANSDERMAL DAILY 0RF calcium carbonate-vitamin D3 600 mg(1,500mg) -200 unit Tablet 1 tab PO DAILY 0RF PreserVision AREDS 14320-226-200 [id number] Capsule 1 cap PO DAILY 0RF acetaminophen 650 mg Tablet Extended Release 650 mg PO Q12H PRN (Reason: Pain) 0RF albuterol sulfate [Ventolin HFA] 90 mcg/actuation HFA aerosol inhaler 2 puff inhalation Q6H PRN (Reason: shortness of breath or wheezing) Qty: 6.7 0RF valsartan [Diovan] 40 mg tablet 40 mg PO DAILY 90 Days Qty: 90 3RF digoxin 250 mcg (0.25 mg) tablet 250 mcg PO DAILY 90 Days Qty: 90 3RF metoprolol succinate 25 mg tablet extended release 24 hr 25 mg PO BEDTIME 90 Days Qty: 90 3RF warfarin [Jantoven] 1 mg tablet 1 - 3 mg PO DAILY 90 Days Qty: 270 3RF Protocol: Dose Management Condition: Friday (Week One) Dose/Route: 1 mg Instruction: 1 x 1 mg tablet Condition: Friday Dose/Route: 2 mg Instruction: 2 x 1 mg tablets Condition: Friday Dose/Route: 2 mg Instruction: 2 x 1 mg tablets Condition: Friday Dose/Route: 1 mg Instruction: 1 x 1 mg tablet Condition: Dose/Route: 2 mg Instruction: 2 x 1 mg tablets Condition: Friday Dose/Route: 1 mg Instruction: 1 x 1 mg tablet Condition: Friday Dose/Route: 2 mg Instruction: 2 x 1 mg tablets Condition: Friday (Week Two) Dose/Route: 1 mg Instruction: 1 x 1 mg tablet Condition: Friday Dose/Route: 2 mg Instruction: 2 x 1 mg tablets Condition: Friday Dose/Route: 2 mg Instruction: 2 x 1 mg tablets Condition: Friday Dose/Route: 1 mg Instruction: 1 x 1 mg tablet Condition: Dose/Route: 2 mg Instruction: 2 x 1 mg tablets Condition: Friday Dose/Route: 2 mg Instruction: 2 x 1 mg tablets Condition: Friday Dose/Route: 2 mg Instruction: 2 x 1 mg tablets Protocol Text: Adjustment Start Date: Friday06/15/21 INR Value: 3.2 INR Date: 06/15/21 Recheck Date: 07/06/21 PreserVision AREDS 14320-226-200 [id number] capsule 1 cap PO ONCE 0RF meloxicam 15 mg tablet 15 mg PO DAILY Qty: 7 0RF
[2021-06-20 12:32] LABS: Appearance Urine CLEAR; Color Urine YELLOW; Glucose Urine UA NEG (NEG); Leukocyte Esterase Urine NEG (NEG); Nitrite Urine NEG (NEG); PH 5.5 (5.0-8.0); Urine Blood NEG (NEG); Urine Ketones NEG (NEG); Urine Protein NEG (NEG-TRACE)
[2021-06-20 12:35] LABS: Troponin-I High Sensitivity 12.6 ng/L (<3.5-35.0)
[2021-06-20 12:38] LABS: COVID-19 Test Negative (Negative); IDNOW Serial# 55D5AD1C
[2021-06-20] MEDS: [UNRECOGNIZED DRUG - MIXTURE] 480 UNIT IV (13:14)
--- NOTE | 2021-06-20 13:20 | PC.NURSE ---
pt only received 250ml of the 1000ml of ns only wanted 250ml in total
[2021-06-20] MEDS: Phytonadione (Vit K1) 5 MG in 0.9 % Sodium Chloride 50 ML 50.5 MG IV (13:33)
--- NOTE | 2021-06-20 13:34 | PM.IMHP ---
History of Present Illness Date of Service: 06/20/21 Chief Complaint: GI bleeding 81 year old man admitted presenting with dizziness. This morning he felt dizzy and off balance, he had to hold on to the wall to walk around his house. He also noted that his SBP was in the 70's. He had noticed black tarry stools over the last few weeks. He denied chest pain, sob, nausea, vomiting, diarrhea, fever, chills. In the ED his was HH 6.1/18.8, INR 4.6. he was given 2 units of PRBC. IV fluids. He was given Kcentra, Vitamin K, and IV PPI. e will be admitted for management of GI bleed. Review of Systems Review of Systems: Denies any recent fever chills or decrease in appetite respiratory denies any shortness of breath coverage production cardiovascular denied chest pain gastrointestinal denies any dysphagia abdominal pain nausea vomiting or diarrhea, reported black stool genitourinary denies any dysuria frequency or hematuria musculoskeletal denies any joint pain or swelling neuropsych denies any weakness or seizures all other systems reviewed are negative [facility] Medical History Back pain Benign essential hypertension Bilateral lower extremity edema CAD (coronary artery disease) Cancer of upper lobe of right lung (~2013) Chronic atrial fibrillation Congestive heart failure COPD (chronic obstructive pulmonary disease) Gout Heart failure with reduced ejection fraction HLD (hyperlipidemia) Lumbar degenerative disc disease Neuropathy Osteoarthritis Osteoarthritis of knees, bilateral PAD (peripheral artery disease) Physical deconditioning Smoker Type 2 diabetes mellitus with other diabetic kidney complication Vitamin D deficiency Wears dentures Family History Mother No problems noted. Surgical History History of angioplasty (~12/2020) History of back surgery History of brain surgery (~2003) History of bronchoscopy (~2020) History of cardiac cath (~02/2016) History of colonoscopy (~01/2001) History of lung surgery (~07/2013) History of lung surgery (~2019) History of partial colectomy (~01/2001) History of right knee surgery (~09/2005) History of thoracentesis (~09/2019) Social History Household Members: None Housing: House Are you a primary youth care worker to a significant other at home: No Do you presently have visiting nurse or other home services: No Alcohol intake: never Patient Tobacco Use Status: Current everyday Tobacco user Tobacco use type: Cigarette Cigarette Packs Per Day: 0.5 Cigarettes Per Day: 10 Years Smoked: 50 Second Hand Smoke Exposure: No Use of substances other than those prescribed or required for medical reasons: No Advance Directives: Yes Advance Directives on File: Yes Advance Directives Date on File: 11/29/20 service: No Current occupational status: retired Meds Allergies Allergy/AdvReac Type Severity Reaction Status Date / Time No Known Allergies Allergy Unknown UNKNOWN Verified 06/19/21 10:18 [NO KNOWN ALLERGIES] Active Medications: Current Medications Sodium Chloride (Ns) 1,000 mls @ 250 mls/hr IV .Q4H STA Stop: 06/20/21 15:42 Last Admin: 06/20/21 12:19 Dose: 250 mls/hr Documented by: Sodium Chloride (Ns) 500 mls @ 50 mls/hr IV .Q10H RADHA Stop: 06/20/21 21:44 Phytonadione 5 mg/ Sodium (Chloride) 50.5 mls @ 50.5 mls/hr IV ONCE STA Stop: 06/20/21 13:41 Last Admin: 06/20/21 13:33 Dose: 50.5 mls/hr Documented by: Home Medications Medication Instructions Recorded Confirmed Last Taken Type calcium carbonate 600 mg-vitamin 1 tab PO DAILY 07/10/20 06/18/21 11/28/20 History D3 5 mcg (200 unit) tablet multivitamin 1 tab PO DAILY 07/10/20 06/18/21 11/28/20 History nicotine 14 mg/24 hr daily 1 patch TRANSDERMAL DAILY 07/10/20 06/18/21 11/27/20 History transdermal patch vitamins A,C,N-fsic-fjvygj 14,320 1 cap PO DAILY 07/10/20 06/18/21 11/28/20 History unit-226 mg-200 unit capsule (PreserVision AREDS) acetaminophen 650 mg 650 mg PO Q12H PRN 11/28/20 06/18/21 11/27/20 History tablet,extended release aspirin 81 mg chewable tablet 81 mg PO DAILY 12/29/20 06/18/21 03/19/21 History vitamins A,C,B-glwt-dxhmzd 14,320 1 cap PO ONCE cap 06/11/21 06/18/21 Unknown History unit-226 mg-200 unit capsule (PreserVision AREDS) Physical Exam Vital Signs and Narrative: Vital Signs: Last Vital Signs Temp 97.7 F 06/20/21 13:25 Pulse 78 06/20/21 13:25 Resp 18 06/20/21 13:25 BP 125/41 L 06/20/21 13:25 Pulse Ox 97 06/20/21 13:20 BMI result Body Mass Index 22.3 Appearing in no acute distress head is normocephalic atraumatic eyes pupils are PERRLA sclera is anicteric mouth throat mucous membranes are intact and moist neck is supple no lymphadenopathy, no JVD noted lung sounds are clear to auscultation heart regular rate rhythm, clear S1, S2 positive bowel sounds, abdomen is soft, nontender neuro patient is alert x3, no focal deficits Results Labs CBC and Chem 7: 06/20/21 12:04 06/20/21 12:04 Labs: Laboratory Results - last 24 hr 06/20/21 06/20/21 06/20/21 12:04 12:04 12:04 MCV 106.2 H MCH 34.5 H MCHC 32.4 RDW 16.0 Plt Count 195 MPV 10.9 Immature Gran % (Auto) 0.9 H Neut % (Auto) 76.3 H Lymph % (Auto) 14.4 L [place] % (Auto) 7.5 Eos % (Auto) 0.4 Baso % (Auto) 0.5 Lymph # (Auto) 1.1 L [place] # (Auto) 0.6 Eos # (Auto) 0.0 Baso # (Auto) 0.0 Abs Immat Gran (auto) 0.07 H Absolute Neuts (auto) 5.7 Absolute Nucleated RBC 0.020 H Nucleated RBC % (auto) 0.3 H PT 53.8 H INR 4.6 H D APTT 41.1 H Anion Gap 11 L Estim Creat Clear Calc 48.9 Estimated GFR 59 Random Glucose 102 Calcium 8.5 D Total Bilirubin 0.4 AST 18 ALT 12 Alkaline Phosphatase 65 D Total Protein 5.3 L Albumin 3.2 L Lipase 45 Urine Color Urine Appearance Urine pH Ur Specific [place] Urine Protein Urine Glucose (UA) Urine Ketones Urine Blood Urine Nitrite Ur Leukocyte Esterase Stool Occult Blood COVID-19 (DAMASO) COVID-19 [employer] Blood Type Antibody Screen Crossmatch 06/20/21 06/20/21 06/20/21 12:04 12:04 12:04 MCV MCH MCHC RDW Plt Count MPV Immature Gran % (Auto) Neut % (Auto) Lymph % (Auto) [place] % (Auto) Eos % (Auto) Baso % (Auto) Lymph # (Auto) [place] # (Auto) Eos # (Auto) Baso # (Auto) Abs Immat Gran (auto) Absolute Neuts (auto) Absolute Nucleated RBC Nucleated RBC % (auto) PT INR APTT Anion Gap Estim Creat Clear Calc Estimated GFR Random Glucose Calcium Total Bilirubin AST ALT Alkaline Phosphatase Total Protein Albumin Lipase Urine Color YELLOW Urine Appearance CLEAR Urine pH 5.5 Ur Specific [place] 1.020 Urine Protein NEG Urine Glucose (UA) NEG Urine Ketones NEG Urine Blood NEG Urine Nitrite NEG Ur Leukocyte Esterase NEG Stool Occult Blood COVID-19 (DAMASO) Negative [employer] [facility] See Note Blood Type A Positive Antibody Screen NEGATIVE Crossmatch See Detail 06/20/21 12:17 MCV MCH MCHC RDW Plt Count MPV Immature Gran % (Auto) Neut % (Auto) Lymph % (Auto) [place] % (Auto) Eos % (Auto) Baso % (Auto) Lymph # (Auto) [place] # (Auto) Eos # (Auto) Baso # (Auto) Abs Immat Gran (auto) Absolute Neuts (auto) Absolute Nucleated RBC Nucleated RBC % (auto) PT INR APTT Anion Gap Estim Creat Clear Calc Estimated GFR Random Glucose Calcium Total Bilirubin AST ALT Alkaline Phosphatase Total Protein Albumin Lipase Urine Color Urine Appearance Urine pH Ur Specific [place] Urine Protein Urine Glucose (UA) Urine Ketones Urine Blood Urine Nitrite Ur Leukocyte Esterase Stool Occult Blood POSITIVE COVID-19 ([facility]AMASO) COVID-[employer] [facility] Blood Type Antibody Screen Crossmatch Assessment and Plan (1) Acute upper gastrointestinal bleeding: Status: Acute Plan 81 year old man admitted with rectal bleeding with associated dizziness. He received 3 covid 19 vaccines. Acute blood loss anemia secondary to acute GI Bleed 2 units of PRBC ordered check cbc post tx GI consult Stool occult positive IV PPI Coagulopathy INR 4.6 recieved Kcentra and vitamin K in the ED PT INR daily Chronic afib hold warfarin d/t anemia continue BB HFpEF chronic. no acute exacerbation COPD, chronic no acute exacerbation Smoker NRT discussed the importance of smoking cessation DVT Prophylaxis with SCD boots due to anemia Attending Dr. Pennington Full code Quality Stroke Does the patient have a stroke diagnosis?: No VTE Prior VTE?: No VTE Risk Level:: Medical - moderate - high VTE Device Contraindication: N/A - Device Ordered VTE Drug Contraindication: Treatment Not Indicated
--- NOTE | 2021-06-20 14:59 | PHA.MEDREC ---
Pharmacy Consult ? Medication Reconciliation Pharmacy has completed the medication reconciliation. Patient took all morning medications. Patient had complete med list with him. He also has bottles of Uloric and Meloxicam which are brought back to the pharmacy if medications are continued.
--- NOTE | 2021-06-20 15:00 | PC.NURSE ---
PHARMACY AT PT'S BEDSIDE, PHARMACY WILL LOAD TWO MEDS INTO PT'S OWN BIN, MELOXICAM AND FEBUXOSTAT
--- NOTE | 2021-06-20 15:02 | MHC.SHP ---
Pre-Procedural Eval Section A Date of Service: 06/20/21 The patient is an INPATIENT: Yes Changes since office visit: No Cold of Flu in the past 2 weeks, No New Medical Problems, No Changes in Medication and No Patient answered all questions The History & Physical has been completed within 30 days and I have reviewed it.: Yes Section B Chief Complaint: DIZZY,LOW BP 75/42, 94% RA,FULLY VACC PER EMS Allergies: Allergies Allergy/AdvReac Type Severity Reaction Status Date / Time No Known Allergies Allergy Unknown UNKNOWN Verified 06/19/21 10:18 [NO KNOWN ALLERGIES] Plan I have reviewed the history and physical and performed a pertinent physical examination on my patient. No changes have occurred unless specified.
--- NOTE | 2021-06-20 16:12 | PM.EVENT ---
Event Note Date of Service: 06/20/21 Event Note: GI consult dictated UGI Bleeding in the setting of nsaid use and overanticoagulation. Receiving blood and reversal agents. Cont ppi and follow hct. EGD 06/21; pt aware of risks and benefits and agrees to proceed.
[2021-06-20] MEDS: 0.9 % Sodium Chloride Flush 3 ML SYRINGE IVFLUSH ×2 (17:33→23:55)
[2021-06-20] MEDS: Pantoprazole Sodium 40 MG/10 ML VIAL IVPUSH (17:33)
[2021-06-20 22:41] LABS: MANUAL DIFF FLAG NO
[2021-06-20 22:42] LABS: Basophils Percent Auto 0.4 % (0-2); Eosinophils Absolute Auto 0.2 X10*3/uL (0.0-0.4); Hemoglobin 7.5 g/dl (14.0-18.0); Imm Gran Abs Auto 0.03 X10*3/uL (0.00-0.03); Imm Gran Pct Auto 0.5 % (0.0-0.4); Lymphocytes Absolute Auto 1.5 X10*3/uL (1.2-4.9); Lymphocytes Percent Auto 26.9 % (20-40); Mean Corpuscular HGB Conc 34.1 g/dl (31.0-36.0); Mean Corpuscular Hemoglobin 33.3 pg (27.0-33.0); Mean Corpuscular Volume 97.8 fL (80.0-98.0); Mean Platelet Volume 9.6 fL (9.4-12.4); Monocytes Absolute Auto 0.6 X10*3/uL (0.1-1.2); Monocytes Percent Auto 11.1 % (2-11); NRBC Pct Auto 0.4 /100WBC (0.0-0.2); Neutrophils Absolute Auto 3.3 x10*3/uL (2.0-8.3); Neutrophils Percent Auto 58.1 % (45-73); Platelet Count 132 X10*3/uL (160-400); Red Blood Count 2.25 X10*6/uL (4.60-5.80); Red Cell Distribution Width 18.2 % (11.0-16.0); White Blood Count 5.6 X10*3/uL (4.8-10.8)
[2021-06-21] VITALS (10 sets, daily range): BP systolic 106–152; BP diastolic 42–72; PULSE 59–77; RESP 14–19; TEMP 36.3–37.2; O2SAT 94–100; BMI 20.2
--- NOTE | 2021-06-21 02:29 | PC.NURSE ---
Patient alert and oriented x 3. voiding in urinal. 2 units of RBC's given. + orthostatic blood pressures. Patient npo after midnight for procedure ? endoscopy. Patient has medications in patient specific bin . Hgb-6.1 hct-18.8 before RBC's rechecked hgb-7.5 hct- 22.0. k centra and vitamin K given. Positve occult stool. GI consult ordered. Patient to be admitted to [facility]. Will continue to monitor.
--- NOTE | 2021-06-21 02:56 | CONS_ITS ---
DATE OF SERVICE: 06/20/2021 REFERRING PHYSICIAN: Renea Bob NP REASON FOR CONSULTATION: GI bleeding. HISTORY OF PRESENT ILLNESS: The patient is a pleasant 81-year-old man, who presented to the emergency room earlier today by ambulance with complaints of dizziness and hypotension. He did not have a syncopal event. His blood pressure was low at home and he called the ambulance. He was evaluated in the emergency department where he was found to have a hematocrit of 6.1, which was down from 12.7 in May. He reports about 2 weeks of black stools. He has been using ibuprofen for knee pain last week and does take a baby aspirin on a daily basis. He also uses Aleve intermittently. He denies any epigastric pain. He is on warfarin for atrial fibrillation. INR in the emergency department was 4.6 and he was given Kcentra and vitamin K. He is also being transfused 2 units of packed red blood cells. He denies any prior history of peptic ulcer disease. He does not take anything for his stomach at home and does not have chronic reflux. He does smoke, but denies alcohol use. PAST MEDICAL HISTORY: 1. Atrial fibrillation. 2. Non-small cell lung cancer, right upper lobe. 3. Coronary artery disease with history of congestive heart failure. 4. Osteoarthritis. 5. Peripheral arterial disease. 6. Diabetes mellitus. 7. Vitamin D deficiency. 8. Hyperlipidemia. 9. Neuropathy. 10. Disk disease. 11. COPD. 12. Hypertension. CURRENT MEDICATIONS: His current medication list is reviewed in the chart. ALLERGIES: THERE ARE NONE REPORTED. PAST SURGICAL HISTORY: 1. Brain surgery for an aneurysm in 2003. 2. Bronchoscopy. 3. Back surgery. 4. Percutaneous coronary intervention and cardiac catheterization. 5. Partial lobectomy x2 on the right. 6. Descending colon/sigmoid resection for GI bleeding in 2000. 7. Knee surgery. 8. Thoracentesis. FAMILY HISTORY: This is reviewed with the patient, is negative for GI malignancy. SOCIAL HISTORY: Tobacco use is one-half pack per day. He denies alcohol use. REVIEW OF SYSTEMS: SKIN: No pruritus. HEENT: Negative. CARDIOPULMONARY: He denies shortness of breath or chest pain. GASTROINTESTINAL: As above. GENITOURINARY: Negative. NEUROPSYCHIATRIC: Negative. PHYSICAL EXAMINATION: GENERAL: Shows a pleasant male, lying comfortably in bed. VITAL SIGNS: Stable in the emergency department. SKIN: Pale. HEENT: Shows no scleral icterus. NECK: Without lymphadenopathy or thyromegaly. LUNGS: Clear with decreased breath sounds bilaterally. HEART: Shows an irregular S1, S2. No murmur. ABDOMEN: Soft without focal masses or tenderness. He has well-healed incision from his previous surgery. EXTREMITIES: Without edema. IMPRESSION: Upper gastrointestinal bleeding. The presentation is consistent with an upper gastrointestinal bleed, likely on the basis of NSAID induced ulcers or gastritis, exacerbated by his elevated INR. He is currently being resuscitated and having his anticoagulation reversed appropriately. I discussed with him upper endoscopy. This will be arranged for tomorrow. He understands risks and benefits and agrees to proceed. In the interim, I agree with treating him with a proton pump inhibitor and monitoring his hematocrit. Thanks for asking me to see him. I will follow him in the hospital with you. MD SVEN Jerez/SADAF / [id number]
[2021-06-21 05:57] LABS: MANUAL DIFF FLAG NO
[2021-06-21 06:04] LABS: Basophils Percent Auto 0.3 % (0-2); Eosinophils Absolute Auto 0.3 X10*3/uL (0.0-0.4); Eosinophils Percent Auto 4.4 % (0-4); Hematocrit 21.9 % (42.0-52.0); Hemoglobin 7.3 g/dl (14.0-18.0); Imm Gran Abs Auto 0.03 X10*3/uL (0.00-0.03); Imm Gran Pct Auto 0.5 % (0.0-0.4); Lymphocytes Absolute Auto 1.3 X10*3/uL (1.2-4.9); Lymphocytes Percent Auto 22.8 % (20-40); Mean Corpuscular HGB Conc 33.3 g/dl (31.0-36.0); Mean Corpuscular Hemoglobin 32.9 pg (27.0-33.0); Mean Corpuscular Volume 98.6 fL (80.0-98.0); Mean Platelet Volume 10.8 fL (9.4-12.4); Monocytes Absolute Auto 0.6 X10*3/uL (0.1-1.2); Monocytes Percent Auto 9.9 % (2-11); Neutrophils Absolute Auto 3.6 x10*3/uL (2.0-8.3); Neutrophils Percent Auto 62.1 % (45-73); Platelet Count 152 X10*3/uL (160-400); Red Blood Count 2.22 X10*6/uL (4.60-5.80); Red Cell Distribution Width 17.9 % (11.0-16.0); White Blood Count 5.7 X10*3/uL (4.8-10.8)
[2021-06-21 06:08] LABS: INTERNATIONAL NORM RATIO 1.2 (0.9-1.1); Prothrombin Time 13.1 SEC (9.9-13.0)
[2021-06-21] MEDS: Pantoprazole Sodium 40 MG/10 ML VIAL IVPUSH (06:17)
[2021-06-21 06:34] LABS: Anion Gap 8 (12-20); Blood Urea Nitrogen 49 mg/dL (9-16); Carbon Dioxide 30 mmol/L (22-29); Chloride 110 mmol/L (96-108); Creatinine Clr Calc Pharmacy 68.3; Estimated Glomerular Filt Rate > 60; Glucose Random 90 mg/dL (60-115); Potassium 4.2 mmol/L (3.3-5.1); Sodium 144 mmol/L (135-145)
--- NOTE | 2021-06-21 07:28 | P.CONAN_ITS ---
HPI - Anesthesia Eval Consult details Narrative: 81 M for EGD patient with possible GI bleed . PMFSH Active Problems Active Problems: All Active Problems (Updated 06/20/21 @ 13:33 by Oswaldo Jovel MD) Acute upper gastrointestinal bleeding (Acute) Supratherapeutic INR (Acute) Acute blood loss anemia (Acute) Knee effusion, left (Acute) Heart failure with reduced ejection fraction (Acute) Cancer of upper lobe of right lung (Acute ~2013) Solitary pulmonary nodule (Acute) Mediastinal lymphadenopathy (Acute) COPD (chronic obstructive pulmonary disease) (Acute) Smoker (Acute) Cardiomyopathy (Acute) CAD (coronary artery disease) (Acute) Current use of anticoagulant therapy (Acute) Chronic atrial fibrillation (Acute) Benign essential hypertension (Acute) HLD (hyperlipidemia) (Acute) PAD (peripheral artery disease) (Acute) Pure hypercholesterolemia (Acute) Bilateral lower extremity edema (Acute) Postural dizziness with near syncope (Acute) Gout (Acute) Shoulder pain, acute (Acute) Chest wall discomfort (Acute) Neuropathy (Acute) Vitamin D deficiency (Acute) Osteoarthritis (Acute) Osteoarthritis of knees, bilateral (Acute) Lumbar degenerative disc disease (Acute) Back pain (Acute) Past Medical History Medical History Back pain Benign essential hypertension Bilateral lower extremity edema CAD (coronary artery disease) Cancer of upper lobe of right lung (~2013) Chronic atrial fibrillation Congestive heart failure COPD (chronic obstructive pulmonary disease) Gout Heart failure with reduced ejection fraction HLD (hyperlipidemia) Lumbar degenerative disc disease Neuropathy Osteoarthritis Osteoarthritis of knees, bilateral PAD (peripheral artery disease) Physical deconditioning Smoker Type 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 Family history of problems with anesthesia: No Surgical History Surgical History History of angioplasty (~12/2020) History of back surgery History of brain surgery (~2003) History of bronchoscopy (~2020) History of cardiac cath (~02/2016) History of colonoscopy (~01/2001) History of lung surgery (~07/2013) History of lung surgery (~2019) History of partial colectomy (~01/2001) History of right knee surgery (~09/2005) History of thoracentesis (~09/2019) History of Problems with Anesthesia: No Social History Social History Household Members: None Housing: [facility] Are you a primary critical care unit manager to a significant other at home: No Do you presently have visiting nurse or other home services: No Alcohol intake: never Patient Tobacco Use Status: Current everyday Tobacco user Tobacco use type: Cigarette Cigarette Packs Per Day: 0.5 Cigarettes Per Day: 10.0 Years Smoked: 50 Smoked in Last 30 Days: Yes Patient Interested in Nicotine Replacement: Yes Patient Given Instructions on How to Stop Smoking: No Second Hand Smoke Exposure: No Use of substances other than those prescribed or required for medical reasons: No Currently Displaying Signs/Symptoms of Drug Intoxication Withdrawal: No Have you been hit, kicked, punched, or otherwise hurt by someone within the past year? If so, by whom?: No Do you feel safe in your current relationship?: No Current Relationship Is there a partner from a previous relationship who is making you feel unsafe now?: No Are you made to feel afraid or neglected: No Are you DNR?: No Advance Directives: Yes Advance Directives on File: Yes Advance Directives Date on File: 11/29/20 Do you have thoughts of harming others: None Do you have a plan to hurt others: No Plan Recently lost weight without trying: No How much weight loss: Not applicable Eating poorly because of decreased appetite: No Nutrition screen score: 0 Nutrition Risks: No Nutritional Risk Poor oral hygiene: No service: No Current occupational status: retired [employer] Allergies Allergy/AdvReac Type Severity Reaction Status Date / Time No Known Allergies Allergy Unknown UNKNOWN Verified 06/19/21 10:18 [NO KNOWN ALLERGIES] Active Medications: Current Medications Acetaminophen (Acetaminophen 325 Mg Tablet) 650 mg PO Q6H PRN PRN Reason: Pain, Mild (Pain Scale 1-3) Albuterol Sulfate (Albuterol Sulfate 90 Mcg 8 Gm Inhaler) 2 puff INHALE Q6H PRN PRN Reason: shortness of breath or wheezing Nicotine (Nicotine 21 Mg Patch.Td24) 21 mg TRANSDERMA DAILY RADHA Non-Formulary Medication (Vitamins A,C,G-Ibto-Bxwhtq [Preservision Areds]) 1 cap PO DAILY [facility] Ondansetron HCl (Ondansetron Hcl 4 Mg/2 Ml Vial) 4 mg IVPUSH Q8H PRN PRN Reason: Nausea and Vomiting Pantoprazole Sodium (Pantoprazole Sodium 40 Mg/10 Ml Vial) 40 mg IVPUSH BID@0630,1630 [facility] Last Admin: 06/21/21 06:17 Dose: 40 mg Documented by: Pharmacy Consult (Consult Rx Perform Med Rec) 1 each MISCELLANE ONCE PRN PRN Reason: Consult order Sodium Chloride (0.9 % Sodium Chloride Flush 3 Ml Syringe) 3 ml IVFLUSH [facility] Last Admin: 06/20/21 23:55 Dose: 3 ml Documented by: Sodium Chloride (0.9 % Sodium Chloride Flush 3 Ml Syringe) 3 ml IVFLUSH [facility] Last Admin: 06/20/21 23:56 Dose: Not Given Documented by: Home Medications Medication Instructions Recorded Confirmed Last Taken Type calcium carbonate 600 mg-vitamin 1 tab PO DAILY 07/10/20 06/20/21 06/20/21 History D3 5 mcg (200 unit) tablet multivitamin 1 tab PO DAILY 07/10/20 06/20/21 06/20/21 History nicotine 14 mg/24 hr daily 1 patch TRANSDERMAL DAILY 07/10/20 06/20/21 06/19/21 History transdermal patch vitamins A,C,U-onwr-toqofz 14,320 1 cap PO DAILY 07/10/20 06/20/21 06/20/21 History unit-226 mg-200 unit capsule (PreserVision AREDS) acetaminophen 650 mg 650 mg PO Q12H PRN 11/28/20 06/20/21 11/27/20 History tablet,extended release aspirin 81 mg chewable tablet 81 mg PO DAILY@1500 12/29/20 06/20/21 06/19/21 History atorvastatin 40 mg tablet 40 mg PO BEDTIME 06/20/21 06/20/21 06/19/21 History warfarin 1 mg tablet 1 mg PO SUWE@1500 06/20/21 06/20/21 06/17/21 History warfarin 1 mg tablet 2 mg PO MOTUTHFRSA@1500 06/20/21 06/20/21 06/19/21 History Exam Exam Date and Time: June 21, [id number] Height,Weight and Vital Signs: Height 6 ft 2 in Weight 71.668 kg Last Vital Signs Temp 98.9 F 06/21/21 06:55 Pulse 77 06/21/21 06:55 Resp 17 06/21/21 06:55 BP 152/64 H 06/21/21 06:55 Pulse Ox 97 06/21/21 06:55 Pertinent Lab Results Pertinent Lab Results: Laboratory Tests 06/20/21 06/20/21 06/20/21 12:04 12:04 12:04 WBC 7.4 RBC 1.77 L D Hgb 6.1 L* D Hct 18.8 L* D MCV 106.2 H MCH 34.5 H MCHC 32.4 RDW 16.0 Plt Count 195 MPV 10.9 Immature Gran % (Auto) 0.9 H Neut % (Auto) 76.3 H Lymph % (Auto) 14.4 L [place] % (Auto) 7.5 Eos % (Auto) 0.4 Baso % (Auto) 0.5 Lymph # (Auto) 1.1 L [place] # (Auto) 0.6 Eos # (Auto) 0.0 Baso # (Auto) 0.0 Abs Immat Gran (auto) 0.07 H Absolute Neuts (auto) 5.7 Absolute Nucleated RBC 0.020 H Nucleated RBC % (auto) 0.3 H PT 53.8 H INR 4.6 H D APTT 41.1 H Sodium 144 Potassium 4.7 Chloride 109 H Carbon Dioxide 29 Anion Gap 11 L BUN 72 H D Creatinine 1.18 Estim Creat Clear Calc 48.9 Estimated GFR 59 Random Glucose 102 Calcium 8.5 D Total Bilirubin 0.4 AST 18 ALT 12 Alkaline Phosphatase 65 D Troponin I High Sens Total Protein 5.3 L Albumin 3.2 L Lipase 45 Urine Color Urine Appearance Urine pH Ur Specific [place] Urine Protein Urine Glucose (UA) Urine Ketones Urine Blood Urine Nitrite Ur Leukocyte Esterase Stool Occult Blood COVID-19 (DAMASO) COVID-19 Clin Com Blood Type Antibody Screen Crossmatch 06/20/21 06/20/21 06/20/21 12:04 12:04 12:04 WBC RBC Hgb Hct MCV MCH MCHC RDW Plt Count MPV Immature Gran % (Auto) Neut % (Auto) Lymph % (Auto) [place] % (Auto) Eos % (Auto) Baso % (Auto) Lymph # (Auto) [place] # (Auto) Eos # (Auto) Baso # (Auto) Abs Immat Gran (auto) Absolute Neuts (auto) Absolute Nucleated RBC Nucleated RBC % (auto) PT INR APTT Sodium Potassium Chloride Carbon Dioxide Anion Gap BUN Creatinine Estim Creat Clear Calc Estimated GFR Random Glucose Calcium Total Bilirubin AST ALT Alkaline Phosphatase Troponin I High Sens 12.6 Total Protein Albumin Lipase Urine Color Urine Appearance Urine pH Ur Specific [place] Urine Protein Urine Glucose (UA) Urine Ketones Urine Blood Urine Nitrite Ur Leukocyte Esterase Stool Occult Blood COVID-19 (DAMASO) Negative COVID-19 Clin Com See Note Blood Type A Positive Antibody Screen NEGATIVE Crossmatch See Detail 06/20/21 06/20/21 06/20/21 12:04 12:17 22:37 WBC 5.6 RBC 2.25 L D Hgb 7.5 L D Hct 22.0 L MCV 97.8 D MCH 33.3 H MCHC 34.1 RDW 18.2 H Plt Count 132 L D MPV 9.6 Immature Gran % (Auto) 0.5 H Neut % (Auto) 58.1 Lymph % (Auto) 26.9 [place] % (Auto) 11.1 H Eos % (Auto) 3.0 Baso % (Auto) 0.4 Lymph # (Auto) 1.5 [place] # (Auto) 0.6 Eos # (Auto) 0.2 Baso # (Auto) 0.0 Abs Immat Gran (auto) 0.03 Absolute Neuts (auto) 3.3 Absolute Nucleated RBC 0.020 H Nucleated RBC % (auto) 0.4 H PT INR APTT Sodium Potassium Chloride Carbon Dioxide Anion Gap BUN Creatinine Estim Creat Clear Calc Estimated GFR Random Glucose Calcium Total Bilirubin AST ALT Alkaline Phosphatase Troponin I High Sens Total Protein Albumin Lipase Urine Color YELLOW Urine Appearance CLEAR Urine pH 5.5 Ur Specific [place] 1.020 Urine Protein NEG Urine Glucose (UA) NEG Urine Ketones NEG Urine Blood NEG Urine Nitrite NEG Ur Leukocyte Esterase NEG Stool Occult Blood POSITIVE COVID-19 (DAMASO) COVID-19 Clin Com Blood Type Antibody Screen Crossmatch 06/21/21 06/21/21 06/21/21 05:26 05:26 05:26 WBC 5.7 RBC 2.22 L Hgb 7.3 L Hct 21.9 L MCV 98.6 H MCH 32.9 MCHC 33.3 RDW 17.9 H Plt Count 152 L MPV 10.8 Immature Gran % (Auto) 0.5 H Neut % (Auto) 62.1 Lymph % (Auto) 22.8 [place] % (Auto) 9.9 Eos % (Auto) 4.4 H Baso % (Auto) 0.3 Lymph # (Auto) 1.3 [place] # (Auto) 0.6 Eos # (Auto) 0.3 Baso # (Auto) 0.0 Abs Immat Gran (auto) 0.03 Absolute Neuts (auto) 3.6 Absolute Nucleated RBC 0.000 Nucleated RBC % (auto) 0.0 PT 13.1 H INR 1.2 H D APTT Sodium 144 Potassium 4.2 Chloride 110 H Carbon Dioxide 30 H Anion Gap 8 L BUN 49 H Creatinine 0.93 Estim Creat Clear Calc 68.3 Estimated GFR > 60 Random Glucose 90 Calcium 8.0 L Total Bilirubin AST ALT Alkaline Phosphatase Troponin I High Sens Total Protein Albumin Lipase Urine Color Urine Appearance Urine pH Ur Specific [place] Urine Protein Urine Glucose (UA) Urine Ketones Urine Blood Urine Nitrite Ur Leukocyte Esterase Stool Occult Blood COVID-19 (DAMASO) COVID-19 Clin Com Blood Type Antibody Screen Crossmatch Airway Mallampati Class: II TM Dist: >3cm Neck ROM: Full Denture: Upper and Lower Loose/Missing/Broken Teeth: Yes Heart: irregular Lungs: bl breath sounds Assessment and Plan Assessment Anesthesia Assessment: Anesthesia Plan Discussed and Chart Reviewed Final Anesthetic Review Family History of Problems with Anesthesia: No History of Problems with Anesthesia: No NPO: Yes ASA Class: III Final Preanesthetic Review: Meds/Allgs Chart Reviewed, Consent Obtained/Reviewed and Anes Risks/Benef Reviewed Patient Risk: High Procedure Risk: Intermediate Anesthetic Plan Anesthetic Plan: MAC: Disposition: Inp. Admit - Standard Bed
--- NOTE | 2021-06-21 08:13 | PM.EVENT ---
Event Note Date of Service: 06/21/21 Event Note: EGD dictated duodenitis and erosive gastritis, no active bleeding bxs taken antral and duodenal rec advance restart anticoagulation 06/22 no nsaids ppi switched to oral
--- NOTE | 2021-06-21 08:16 | PM.OP ---
Brief Operative Note Date of Service: 06/21/21 Pre-op diagnosis: ugi bleed Post-op diagnosis: same (duodenitis, erosive gastritis) Procedure: EGD with biopsy Surgeon: Jared Gr Was an College Or University Faculty Member used for this Procedure?: No Estimated blood loss (mL): -5 Pathology: other (bxs antrum and duodenum) Condition: stable Disposition: PACU
--- NOTE | 2021-06-21 09:13 | OP_ITS ---
SURGEON: Jared Gr MD INDICATIONS: Upper GI bleeding. PREOPERATIVE DIAGNOSIS: POSTOPERATIVE DIAGNOSIS: PROCEDURE PERFORMED: Upper endoscopy with biopsy. ESTIMATED BLOOD LOSS: COMPLICATIONS: ANESTHESIA: ASSISTANTS: SPECIMENS: MEDICATIONS: Monitored anesthesia care. DESCRIPTION OF PROCEDURE: History and physical were performed. The risks and benefits of the procedure were explained to the patient. Informed consent was obtained. The patient was placed in the left lateral decubitus position. The Olympus video gastroscope was introduced into the esophagus, stomach, and duodenum. Examination was performed. The scope was removed. He tolerated the procedure well and was taken to recovery area in stable condition. FINDINGS: Esophagus: The esophagus was normal. Stomach: The stomach showed a few superficial erosions in the antrum. There was no active bleeding. Biopsies were obtained from the antrum. Duodenum: There was duodenitis involving the bulb. There was edema. No ulcer was identified. In the second portion were multiple subcutaneous lipomas. The largest measuring approximately 10 mm. Biopsies were obtained from the second portion. There was no active bleeding. Several benign-appearing gastric polyps were noted in the fundus measuring less than 10 mm. IMPRESSION: 1. Erosive gastritis. 2. Duodenitis. RECOMMENDATION: 1. Continue proton pump inhibitor. 2. Advanced diet. 3. Anticoagulation may be restarted tomorrow. 4. Avoid NSAIDs. MD SVEN Jerez/SHAMARL / [phone]
[2021-06-21] MEDS: Nicotine 21 MG PATCH.TD24 TRANSDERMA (09:22)
[2021-06-21] MEDS: Omeprazole 40 MG CAPSULE.DR PO (09:22)
[2021-06-21] MEDS: Digoxin 0.25 MG TABLET PO (09:22)
[2021-06-21] MEDS: 0.9 % Sodium Chloride Flush 3 ML SYRINGE IVFLUSH ×5 (09:24→23:52)
--- NOTE | 2021-06-21 10:59 | P.PNIM_ITS ---
Subjective Subjective Date of Service: 06/21/21 Interval History: seen and examined this morning s/p EGD this morning showing erosive gastritis and duodenitis feeling better today, no dizziness or abdominal pain at this time Review of Systems Review of Systems: Yes all other systems are reviewed and are negative Constitutional Constitutional: Denies chills and Denies fever(s) Cardiovascular Cardiovascular: Denies chest pain, Denies palpitations and Denies dyspnea Respiratory Respiratory: Denies dyspnea Gastrointestinal Gastrointestinal: Denies abdominal pain Endocrine Endocrine: Denies palpitations Physical Exam Vital Signs: Vital Signs: Last Vital Signs Temp 98.9 F 06/21/21 08:26 Pulse 70 06/21/21 08:26 Resp 16 06/21/21 08:26 BP 139/56 L 06/21/21 08:26 Pulse Ox 96 06/21/21 08:26 BMI result Body Mass Index 20.2 Const: General: cooperative, comfortable, no acute distress, alert and awake Nutritional Appearance: thin Eyes: Pupils: Equal, round and reactive pupils present Resp: Effort & Inspection: normal respiratory effort and able to speak in complete sentences Cardio: Rate: regular rate Heart sounds: S1 normal heart sound present and S2 normal heart sound present GI: Inspection: No distended Palpation (GI): Soft to palpation and nontender Neuro: Cranial nerves: Yes Equal, round and reactive pupils present Extrem: Other: moving all 4 extremities spontaneously Objective Data Active Medications Acetaminophen (Acetaminophen 325 Mg Tablet) 650 mg PO Q6H PRN PRN Reason: Pain, Mild (Pain Scale 1-3) Albuterol Sulfate (Albuterol Sulfate 90 Mcg 8 Gm Inhaler) 2 puff INHALE Q6H PRN PRN Reason: shortness of breath or wheezing Digoxin (Digoxin 0.25 Mg Tablet) 0.25 mg PO DAILY [facility] Last Admin: 06/21/21 09:22 Dose: 0.25 mg Documented by: [place] Nicotine (Nicotine 21 Mg Patch.Td24) 21 mg TRANSDERMA DAILY [facility] Last Admin: 06/21/21 09:22 Dose: 21 mg Documented by: [place] Omeprazole (Omeprazole 40 Mg Capsule.Dr) 40 mg PO DAILY@0630 [facility] Last Admin: 06/21/21 09:22 Dose: 40 mg Documented by: [place] Ondansetron HCl (Ondansetron Hcl 4 Mg/2 Ml Vial) 4 mg IVPUSH Q8H PRN PRN Reason: Nausea and Vomiting Pharmacy Consult (Consult Rx Perform Med Rec) 1 each MISCELLANE ONCE PRN PRN Reason: Consult order Sodium Chloride (0.9 % Sodium Chloride Flush 3 Ml Syringe) 3 ml IVFLUSH QSWVFT [facility] Last Admin: 06/21/21 09:24 Dose: 3 ml Documented by: [place] Sodium Chloride (0.9 % Sodium Chloride Flush 3 Ml Syringe) 3 ml IVFLUSH [facility] Last Admin: 06/21/21 09:24 Dose: 3 ml Documented by: [place] Labs CBC & Chem 7: 06/21/21 05:26 06/21/21 05:26 Labs: Laboratory Results - last 24 hr 06/20/21 06/20/21 06/20/21 12:04 12:04 12:04 MCV 106.2 H MCH 34.5 H MCHC 32.4 RDW 16.0 Plt Count 195 MPV 10.9 Immature Gran % (Auto) 0.9 H Neut % (Auto) 76.3 H Lymph % (Auto) 14.4 L [place] % (Auto) 7.5 Eos % (Auto) 0.4 Baso % (Auto) 0.5 Lymph # (Auto) 1.1 L [place] # (Auto) 0.6 Eos # (Auto) 0.0 Baso # (Auto) 0.0 Abs Immat Gran (auto) 0.07 H Absolute Neuts (auto) 5.7 Absolute Nucleated RBC 0.020 H Nucleated RBC % (auto) 0.3 H Smear Path Review SEE NOTE PT 53.8 H INR 4.6 H D APTT 41.1 H Anion Gap 11 L Estim Creat Clear Calc 48.9 Estimated GFR 59 Random Glucose 102 Calcium 8.5 D Total Bilirubin 0.4 AST 18 ALT 12 Alkaline Phosphatase 65 D Total Protein 5.3 L Albumin 3.2 L Lipase 45 Urine Color Urine Appearance Urine pH Ur Specific [place] Urine Protein Urine Glucose (UA) Urine Ketones Urine Blood Urine Nitrite Ur Leukocyte Esterase Stool Occult Blood COVID-19 (DAMASO) COVID-19 Clin Com Blood Type Antibody Screen Crossmatch 06/20/21 06/20/21 06/20/21 12:04 12:04 12:04 MCV MCH MCHC RDW Plt Count MPV Immature Gran % (Auto) Neut % (Auto) Lymph % (Auto) [place] % (Auto) Eos % (Auto) Baso % (Auto) Lymph # (Auto) [place] # (Auto) Eos # (Auto) Baso # (Auto) Abs Immat Gran (auto) Absolute Neuts (auto) Absolute Nucleated RBC Nucleated RBC % (auto) Smear Path Review PT INR APTT Anion Gap Estim Creat Clear Calc Estimated GFR Random Glucose Calcium Total Bilirubin AST ALT Alkaline Phosphatase Total Protein Albumin Lipase Urine Color YELLOW Urine Appearance CLEAR Urine pH 5.5 Ur Specific [place] 1.020 Urine Protein NEG Urine Glucose (UA) NEG Urine Ketones NEG Urine Blood NEG Urine Nitrite NEG Ur Leukocyte Esterase NEG Stool Occult Blood COVID-19 (DAMASO) Negative COVID-19 Clin Com See Note Blood Type A Positive Antibody Screen NEGATIVE Crossmatch See Detail 06/20/21 06/20/21 06/21/21 12:17 22:37 05:26 MCV 97.8 D 98.6 H MCH 33.3 H 32.9 MCHC 34.1 33.3 RDW 18.2 H 17.9 H Plt Count 132 L D 152 L MPV 9.6 10.8 Immature Gran % (Auto) 0.5 H 0.5 H Neut % (Auto) 58.1 62.1 Lymph % (Auto) 26.9 22.8 [place] % (Auto) 11.1 H 9.9 Eos % (Auto) 3.0 4.4 H Baso % (Auto) 0.4 0.3 Lymph # (Auto) 1.5 1.3 [place] # (Auto) 0.6 0.6 Eos # (Auto) 0.2 0.3 Baso # (Auto) 0.0 0.0 Abs Immat Gran (auto) 0.03 0.03 Absolute Neuts (auto) 3.3 3.6 Absolute Nucleated RBC 0.020 H 0.000 Nucleated RBC % (auto) 0.4 H 0.0 Smear Path Review PT INR APTT Anion Gap Estim Creat Clear Calc Estimated GFR Random Glucose Calcium Total Bilirubin AST ALT Alkaline Phosphatase Total Protein Albumin Lipase Urine Color Urine Appearance Urine pH Ur Specific [place] Urine Protein Urine Glucose (UA) Urine Ketones Urine Blood Urine Nitrite Ur Leukocyte Esterase Stool Occult Blood POSITIVE COVID-19 (DAMASO) COVID-19 Clin Com Blood Type Antibody Screen Crossmatch 06/21/21 06/21/21 05:26 05:26 MCV MCH MCHC RDW Plt Count MPV Immature Gran % (Auto) Neut % (Auto) Lymph % (Auto) [place] % (Auto) Eos % (Auto) Baso % (Auto) Lymph # (Auto) [place] # (Auto) Eos # (Auto) Baso # (Auto) Abs Immat Gran (auto) Absolute Neuts (auto) Absolute Nucleated RBC Nucleated RBC % (auto) Smear Path Review PT 13.1 H INR 1.2 H D APTT Anion Gap 8 L Estim Creat Clear Calc 68.3 Estimated GFR > 60 Random Glucose 90 Calcium 8.0 L Total Bilirubin AST ALT Alkaline Phosphatase Total Protein Albumin Lipase Urine Color Urine Appearance Urine pH Ur Specific [place] Urine Protein Urine Glucose (UA) Urine Ketones Urine Blood Urine Nitrite Ur Leukocyte Esterase Stool Occult Blood COVID-19 (DAMASO) COVID-19 Clin Com Blood Type Antibody Screen Crossmatch Assessment and Plan (1) Acute upper gastrointestinal bleeding: Status: Acute (2) Supratherapeutic INR: Status: Acute (3) Acute blood loss anemia: Status: Acute Plan This is an 81 year old male with history of afib, COPD, HFpEF admitted with rectal bleeding with associated dizziness. He received 3 covid 19 vaccines. Acute blood loss anemia secondary to acute GI Bleed likely r/t NSAIDs and supratherapeutic INR s/p 2 units of PRBC seen by GI and s/p EGD this am showing erosive gastritis and duodenitis PPI changed to PO resume AC tomorrow per GI Coagulopathy INR 4.6 on admission, today 1.2 received Kcentra and vitamin K in the ED PT INR daily Chronic afib hold warfarin d/t anemia, resume tomorrow BB on hold continue digoxin HFpEF chronic. no acute exacerbation po lasix on hold COPD, chronic no acute exacerbation continue prn albuterol HTN valsartan on hold for now follow BP closely Smoker NRT discussed the importance of smoking cessation DVT Prophylaxis with SCD boots due to anemia Attending Dr. Greenfield Full code Quality Stroke Does the patient have a stroke diagnosis?: No VTE Prior VTE?: No VTE Risk Level:: Medical - moderate - high VTE Device Contraindication: N/A - Device Ordered VTE Drug Contraindication: Treatment Not Indicated
--- NOTE | 2021-06-21 13:24 | MHC.CM.PN ---
nurse care manger note electronic medical rexord reviewwd case disucssed with staff nurse and hospitalist , [id number] admittes with anemia , gi consult was completed and has gi procedure today results per documentation (erosive gastritis, duodenitis, plan continue protien poumnp inhibitor, advanced diet, anticoagulant may be restarted 06/22/21 and avoid nsaids , met with patient he lives in a condo in [facility] [place] he has children that lives nearby and helps him his daughter cooks for him and family assit with [facility] with obtaining medications and tfor appointments. he describes himself as independent in dressing and bathing and doing light housework , he is aware that the [facility] and the [facility] can provide meals when needed and is aware of how to reach them , patient uses a cane in the home , he denies and financial difficulties in obtaing his medications , and takes coumadin and attends the [facility] . he is also aware the he would be eligeable for the [facility] but needs to sighn up about a week before appointments if he is unable to get a ride , he wharton had the coivd vacinations and has hcp he has had [facility] for nsg and home pt in the past and would like to have them back if needed he asked if i would iniate the referral discharge plan home no services vs home with [facility] r[facility]/?home pt transportation family/friends pcp dr ana cevallos follow up with gi post discharge as directed medicare imm given,
--- NOTE | 2021-06-21 13:33 | MHC.CM.PN ---
PT REPORTS HE LIVES AT HOME AND IS INDEPENDENT WITH CARE PT REPORTS HE HAS NO SERVICES PT USES [facility] AT HOME DEPENDING ON HOW HE FEELS AND HOW FAR HE IS GOING PT HAS A HCP ON FILE AND SAYS HIS PCP IS ENRIQUE QUEZADA IMM JAN CURRENT DC PLAN IS HOME WITH NO SERVICES PT REPORTS HE MAY BE INTERESTED IN SERVICES WITH [facility] BUT DOES NOT WANT TO DECIDE NOW FAMILY TO TRANSPORT
[2021-06-22] VITALS (8 sets, daily range): BP systolic 119–141; BP diastolic 59–75; PULSE 67–90; RESP 16–18; TEMP 36.3–36.8; O2SAT 94–98
[2021-06-22] MEDS: Omeprazole 40 MG CAPSULE.DR PO (05:42)
[2021-06-22 06:12] LABS: Hematocrit 21.5 % (42.0-52.0); Mean Corpuscular HGB Conc 32.1 g/dl (31.0-36.0); Mean Corpuscular Hemoglobin 32.4 pg (27.0-33.0); Mean Corpuscular Volume 100.9 fL (80.0-98.0); Mean Platelet Volume 10.5 fL (9.4-12.4); Platelet Count 143 X10*3/uL (160-400); Red Blood Count 2.13 X10*6/uL (4.60-5.80); Red Cell Distribution Width 17.7 % (11.0-16.0); White Blood Count 5.5 X10*3/uL (4.8-10.8)
[2021-06-22 06:19] LABS: INTERNATIONAL NORM RATIO 1.2 (0.9-1.1); Prothrombin Time 13.5 SEC (9.9-13.0)
[2021-06-22 06:21] LABS: Hemoglobin 6.9 g/dl (14.0-18.0)
[2021-06-22] MEDS: Nicotine 21 MG PATCH.TD24 TRANSDERMA (08:17)
[2021-06-22] MEDS: Digoxin 0.25 MG TABLET PO (08:17)
[2021-06-22] MEDS: 0.9 % Sodium Chloride Flush 3 ML SYRINGE IVFLUSH ×2 (08:19→15:39)
--- NOTE | 2021-06-22 10:29 | P.PNIM_ITS ---
Subjective Subjective Date of Service: 06/22/21 Interval History: seen and examined this morning feeling tired had one stool overnight, thinks its was dark but no red blood denies shortness of breath, dizziness, abdominal pain Review of Systems Review of Systems: Yes all other systems are reviewed and are negative Cardiovascular Cardiovascular: Denies palpitations and Denies dyspnea Respiratory Respiratory: Denies dyspnea Gastrointestinal Gastrointestinal: Denies hematochezia, Denies nausea and Denies vomiting Endocrine Endocrine: Denies palpitations Physical Exam Vital Signs: Vital Signs: Last Vital Signs Temp 98.2 F 06/22/21 07:53 Pulse 83 06/22/21 07:53 Resp 18 06/22/21 07:53 BP 139/75 06/22/21 07:53 Pulse Ox 94 06/22/21 07:53 BMI result Body Mass Index 20.2 Const: General: cooperative, comfortable, no acute distress, alert and awake Nutritional Appearance: thin Eyes: Pupils: Equal, round and reactive pupils present Resp: Effort & Inspection: normal respiratory effort and able to speak in com plete sentences Cardio: Rate: regular rate Heart sounds: S1 normal heart sound present and S2 normal heart sound present GI: Inspection: No distended Palpation (GI): Soft to palpation and nontender Neuro: Cranial nerves: Yes Equal, round and reactive pupils present Extrem: Other: moving all 4 extremities spontaneously Objective Data Active Medications Acetaminophen (Acetaminophen 325 Mg Tablet) 650 mg PO Q6H PRN PRN Reason: Pain, Mild (Pain Scale 1-3) Albuterol Sulfate (Albuterol Sulfate 90 Mcg 8 Gm Inhaler) 2 puff INHALE Q6H PRN PRN Reason: shortness of breath or wheezing Digoxin (Digoxin 0.25 Mg Tablet) 0.25 mg PO DAILY [facility] Last Admin: 06/22/21 08:17 Dose: 0.25 mg Documented by: PETRONA Nicotine (Nicotine 21 Mg Patch.Td24) 21 mg TRANSDERMA DAILY [facility] Last Admin: 06/22/21 08:17 Dose: 21 mg Documented by: PETRONA Omeprazole (Omeprazole 40 Mg Capsule.Dr) 40 mg PO DAILY@0630 [facility] Last Admin: 06/22/21 05:42 Dose: 40 mg Documented by: FERNANDO Ondansetron HCl (Ondansetron Hcl 4 Mg/2 Ml Vial) 4 mg IVPUSH Q8H PRN PRN Reason: Nausea and Vomiting Pharmacy Consult (Consult Rx Perform Med Rec) 1 each MISCELLANE ONCE PRN PRN Reason: Consult order Sodium Chloride (0.9 % Sodium Chloride Flush 3 Ml Syringe) 3 ml IVFLUSH QSHIFT [facility] Last Admin: 06/22/21 08:19 Dose: 3 ml Documented by: PETRONA Labs CBC & Chem 7: 06/22/21 05:39 06/21/21 05:26 Labs: Laboratory Results - last 24 hr 06/20/21 06/22/21 06/22/21 12:04 05:39 05:39 MCV 100.9 H MCH 32.4 MCHC 32.1 RDW 17.7 H Plt Count 143 L MPV 10.5 Absolute Nucleated RBC 0.000 Nucleated RBC % (auto) 0.0 PT 13.5 H INR 1.2 H Blood Type A Positive Antibody Screen NEGATIVE Crossmatch See Detail Assessment and Plan (1) Acute upper gastrointestinal bleeding: Status: Acute (2) Acute blood loss anemia: Status: Acute Plan This is an 81 year old male with history of afib, COPD, HFpEF admitted with rectal bleeding with associated dizziness. He received 3 covid 19 vaccines. Acute blood loss anemia secondary to acute GI Bleed likely r/t NSAIDs (meloxicam for knee pain) and supratherapeutic INR s/p 2 units of PRBC seen by GI and s/p EGD 06/21 showing erosive gastritis and duodenitis PPI changed to PO H/H drifting down slightly today, will transfuse additional unit will downgrade diet to clear liquids had ?dark stool overnight ?old blood able to resume AC today but will continue to hold for now due to above Coagulopathy INR 4.6 on admission, today 1.2 received Kcentra and vitamin K in the ED PT INR daily Chronic afib hold warfarin d/t anemia BB on hold continue digoxin HFpEF chronic. no acute exacerbation po lasix on hold COPD, chronic no acute exacerbation continue prn albuterol HTN valsartan on hold for now follow BP closely Smoker NRT discussed the importance of smoking cessation DVT Prophylaxis with SCD boots due to anemia Attending Dr. Greenfield Full code Quality Stroke Does the patient have a stroke diagnosis?: No VTE Prior VTE?: No VTE Risk Level:: Medical - moderate - high VTE Device Contraindication: N/A - Device Ordered VTE Drug Contraindication: Treatment Not Indicated
--- NOTE | 2021-06-22 10:35 | MHC.CM.PN ---
EMR REVIEWED, PT'S H&H 6.9.5, ANTIC PT WILL BE TRANSFUSED, NO PLAN FOR D/C TODAY, [facility] UNABLE TO PROVIDE SERVICES FOR PT, REF SENT TO [facility] AND WILL FOLLOW FOR SERVICES IF NEEDED.
--- NOTE | 2021-06-22 13:28 | HO.POSTANES ---
Post Anesthesia Evaluation Post Anesthesia Evaluation Vital Signs: Vital Signs Temp Pulse Resp BP Pulse Ox 06/22/21 13:06 98.3 F 86 18 125/60 06/22/21 11:55 97.8 F 81 18 138/65 95 06/22/21 11:08 98.2 F 90 18 136/62 06/22/21 10:53 98.2 F 80 18 126/59 L 06/22/21 07:53 98.2 F 83 18 139/75 94 06/22/21 02:59 98.2 F 67 16 141/64 H 94 Anesthesia: Monitored Mental Status: Awake Pain Control: Satisfactory Nausea/Vomiting: None Hydration: Adequate Anesthesia-Related Issues: No Anes. Related Issues
--- NOTE | 2021-06-22 22:28 | PC.NURSE ---
patient requested to take nicotine patch off,patch removed from right arm,unable to document in [place]
[2021-06-23] VITALS (7 sets, daily range): BP systolic 124–153; BP diastolic 56–78; PULSE 67–95; RESP 17–18; TEMP 36.1–36.9; O2SAT 95–100
[2021-06-23] MEDS: 0.9 % Sodium Chloride Flush 3 ML SYRINGE IVFLUSH ×3 (00:45→17:15)
[2021-06-23 05:50] LABS: Hematocrit 25.9 % (42.0-52.0); Hemoglobin 8.3 g/dl (14.0-18.0); Mean Corpuscular Hemoglobin 31.8 pg (27.0-33.0); Mean Corpuscular Volume 99.2 fL (80.0-98.0); Mean Platelet Volume 10.5 fL (9.4-12.4); Platelet Count 161 X10*3/uL (160-400); Red Blood Count 2.61 X10*6/uL (4.60-5.80); Red Cell Distribution Width 17.4 % (11.0-16.0); White Blood Count 4.4 X10*3/uL (4.8-10.8)
[2021-06-23] MEDS: Nicotine 21 MG PATCH.TD24 TRANSDERMA (09:06)
[2021-06-23] MEDS: Digoxin 0.25 MG TABLET PO (09:06)
--- NOTE | 2021-06-23 13:27 | MHC.CM.PN ---
Addendum entered by Quiana Wilson 06/23/21 13:29: DISREGARD + CULTURES COMMENT. Original Note: PATIENT NEEDS PERMA-CATH PLACED. STILL WITH + CULTURES CASE MANAGEMENT FOLLOWING
--- NOTE | 2021-06-23 15:45 | HO.PM.IMPN ---
Subjective Subjective Date of Service: 06/23/21 Review of Systems seen and examined this morning Feeling better ate solid food No red blood in stool denies shortness of breath, dizziness, abdominal pain Physical Exam Vital Signs: Vital Signs: Last Vital Signs Temp 98.3 F 06/23/21 12:00 Pulse 67 06/23/21 14:16 Resp 17 06/23/21 12:00 BP 124/56 L 06/23/21 14:16 Pulse Ox 99 06/23/21 14:16 BMI result Body Mass Index 20.2 Appearing in no acute distress lung sounds are clear to auscultation heart regular rate rhythm, clear S1, S2 positive bowel sounds, abdomen is soft, nontender neuro patient is alert x3, no focal deficits Objective Data Active Medications Acetaminophen (Acetaminophen 325 Mg Tablet) 650 mg PO Q6H PRN PRN Reason: Pain, Mild (Pain Scale 1-3) Albuterol Sulfate (Albuterol Sulfate 90 Mcg 8 Gm Inhaler) 2 puff INHALE Q6H PRN PRN Reason: shortness of breath or wheezing Digoxin (Digoxin 0.25 Mg Tablet) 0.25 mg PO DAILY [facility] Last Admin: 06/23/21 09:06 Dose: 0.25 mg Documented by: JERZY Nicotine (Nicotine 21 Mg Patch.Td24) 21 mg TRANSDERMA DAILY [facility] Last Admin: 06/23/21 09:06 Dose: 21 mg Documented by: JERZY Omeprazole (Omeprazole 40 Mg Capsule.Dr) 40 mg PO DAILY@0630 [facility] Last Admin: 06/23/21 06:02 Dose: Not Given Documented by: HEAVENLY Non-Admin Reason: Patient Refused Ondansetron HCl (Ondansetron Hcl 4 Mg/2 Ml Vial) 4 mg IVPUSH Q8H PRN PRN Reason: Nausea and Vomiting Pharmacy Consult (Consult Rx Perform Med Rec) 1 each MISCELLANE ONCE PRN PRN Reason: Consult order Sodium Chloride (0.9 % Sodium Chloride Flush 3 Ml Syringe) 3 ml IVFLUSH QSHIFT [facility] Last Admin: 06/23/21 09:07 Dose: 3 ml Documented by: JERZY Labs CBC & Chem 7: 06/23/21 05:27 06/21/21 05:26 Labs: Laboratory Results - last 24 hr 06/23/21 05:27 MCV 99.2 H MCH 31.8 MCHC 32.0 RDW 17.4 H Plt Count 161 MPV 10.5 Absolute Nucleated RBC 0.000 Nucleated RBC % (auto) 0.0 Assessment and Plan (1) Acute upper gastrointestinal bleeding: Status: Acute (2) Acute blood loss anemia: Status: Acute Plan This is an 81 year old male with history of afib, COPD, HFpEF admitted with rectal bleeding with associated dizziness. He received 3 covid 19 vaccines. Acute blood loss anemia secondary to acute GI Bleed likely r/t NSAIDs (meloxicam for knee pain) and supratherapeutic INR s/p 2 units of PRBC seen by GI and s/p EGD 06/21 showing erosive gastritis and duodenitis PPI changed to PO advance to regular diet able to resume AC Coagulopathy. Resolved INR 4.6 on admission received Kcentra and vitamin K in the ED PT INR daily Chronic afib BB on hold continue digoxin HFpEF chronic. no acute exacerbation po lasix on hold COPD, chronic no acute exacerbation continue prn albuterol HTN valsartan on hold for now with stable BP follow BP closely Smoker NRT discussed the importance of smoking cessation DVT Prophylaxis with SCD boots due to anemia Attending Dr. Castaneda Full code Quality Stroke Does the patient have a stroke diagnosis?: No VTE Prior VTE?: No VTE Risk Level:: Medical - moderate - high VTE Device Contraindication: N/A - Device Ordered VTE Drug Contraindication: Treatment Not Indicated
[2021-06-23 16:40] LABS: INTERNATIONAL NORM RATIO 1.3 (0.9-1.1); Prothrombin Time 14.8 SEC (9.9-13.0)
[2021-06-23] MEDS: Atorvastatin Calcium 40 MG TABLET PO (22:35)
--- NOTE | 2021-06-23 23:03 | ECG_ITS ---
Test Reason : st elevation Blood Pressure : / mmHG Vent. Rate : 069 BPM Atrial Rate : 000 BPM P-R Int : 000 ms QRS Dur : 154 ms QT Int : 408 ms P-R-T Axes : 000 -88 042 degrees QTc Int : 437 ms Atrial fibrillation with premature ventricular or aberrantly conducted complexes Right bundle branch block Left anterior fascicular block Bifascicular block Abnormal ECG When compared with ECG of 20-JUN-2021 11:41, No significant change was found Referred By: Rigoberto Bob Electronically Signed By:SYLVIA JULES
[2021-06-23 23:47] LABS: Troponin-I High Sensitivity 19.3 ng/L (<3.5-35.0)
[2021-06-24] VITALS: BP 139/65; PULSE 100; RESP 17; TEMP 36.1; O2SAT 98
[2021-06-24] MEDS: 0.9 % Sodium Chloride Flush 3 ML SYRINGE IVFLUSH ×2 (01:25→08:51)
[2021-06-24 04:00] VITALS: BP 169/77; PULSE 93; RESP 17; TEMP 36.3; O2SAT 97
[2021-06-24 06:16] LABS: Hematocrit 26.9 % (42.0-52.0); Hemoglobin 8.5 g/dl (14.0-18.0); Mean Corpuscular HGB Conc 31.6 g/dl (31.0-36.0); Mean Corpuscular Hemoglobin 31.6 pg (27.0-33.0); Mean Platelet Volume 10.4 fL (9.4-12.4); Platelet Count 168 X10*3/uL (160-400); Red Blood Count 2.69 X10*6/uL (4.60-5.80); Red Cell Distribution Width 17.1 % (11.0-16.0); White Blood Count 4.6 X10*3/uL (4.8-10.8)
[2021-06-24 06:20] LABS: INTERNATIONAL NORM RATIO 1.3 (0.9-1.1)
[2021-06-24] MEDS: Omeprazole 40 MG CAPSULE.DR PO (06:22)
--- NOTE | 2021-06-24 07:49 | PM.DS ---
DS: Providers Provider Date of Service: 06/24/21 <Renea Bob NP - Last Filed: 06/24/21 10:46> Date of admission: 06/20/21 22:22 <Renea Bob NP - Last Filed: 06/24/21 10:46> Primary care physician: Unknown Physician <Renea Bob NP - Last Filed: 06/24/21 10:46> Consults: 06/20/21 14:22 Consult to Gastroenterology Routine Consulting Provider: Sathish Whitehead Reason for consultation: GI bleed <Renea Bob NP - Last Filed: 06/24/21 10:46> Attending physician on discharge: Nile Castaneda <Renea Bob NP - Last Filed: 06/24/21 10:46> Discharging clinician: Renea Bob <Renea Bob NP - Last Filed: 06/24/21 10:46> DS: Diagnosis Discharge Diagnosis (1) Acute upper gastrointestinal bleeding: Status: Acute <Renea Bob NP - Last Filed: 06/24/21 10:46> (2) Acute blood loss anemia: Status: Acute <Renea Bob NP - Last Filed: 06/24/21 10:46> DS: Summary Hospital Course Hospital Course: 81 year old man admitted presenting with dizziness. This morning he felt dizzy and off balance, he had to hold on to the wall to walk around his house. He also noted that his SBP was in the 70's. He had noticed black tarry stools over the last few weeks. He denied chest pain, sob, nausea, vomiting, diarrhea, fever, chills. In the ED his was HH 6.1/18.8, INR 4.6. he was given 2 units of PRBC. IV fluids. He was given Kcentra, Vitamin K, and IV PPI. e will be admitted for management of GI bleed. Acute blood loss anemia secondary to acute GI Bleed likely r/t NSAIDs (meloxicam for knee pain) and supratherapeutic INR s/p 2 units of PRBC? seen by GI and s/p EGD 06/21 showing erosive gastritis and duodenitis PPI changed to PO prilosec 40mg daily advanced to regular diet able to resume AC warfarin Coagulopathy. Resolved INR 4.6 on admission received Kcentra and vitamin K in the ED resume warfarin <Renea Bob NP - Last Filed: 06/24/21 10:46> Time Spent with Patient Time attestation: Total time spent providing and/or coordinating discharge services: <Renea Bob NP - Last Filed: 06/24/21 10:46> Discharge coordination time: Greater than 30 minutes <Renea Bob NP - Last Filed: 06/24/21 10:46> Quality: Stroke Does the patient have a stroke diagnosis?: No <Renea oBb NP - Last Filed: 06/24/21 10:46> Physical Exam Vital Signs: Vital Signs: Last Vital Signs Temp 97.3 F 06/24/21 04:00 Pulse 93 06/24/21 04:00 Resp 17 06/24/21 04:00 BP 169/77 H 06/24/21 04:00 Pulse Ox 97 06/24/21 04:00 BMI result Body Mass Index 20.2 <Renea Bob NP - Last Filed: 06/24/21 10:46> Appearing in no acute distress head is normocephalic atraumatic eyes pupils are PERRLA sclera is anicteric mouth throat mucous membranes are intact and moist neck is supple no lymphadenopathy, no JVD noted lung sounds are clear to auscultation heart regular rate rhythm, clear S1, S2 positive bowel sounds, abdomen is soft, nontender neuro patient is alert x3, no focal deficits <Renea Bob NP - Last Filed: 06/24/21 10:46> DS: Data Data Completed and Pending Completed studies during hospitalization [Text1]: Pending at discharge 06/21/21 07:56 Surgical [PTH] Routine <Renea Bob NP - Last Filed: 06/24/21 10:46> Labs on day of discharge: Laboratory Results - last 24 hr 06/23/21 06/23/21 06/24/21 16:28 23:20 05:36 WBC 4.6 L RBC 2.69 L Hgb 8.5 L Hct 26.9 L MCV 100.0 H MCH 31.6 MCHC 31.6 RDW 17.1 H Plt Count 168 MPV 10.4 Absolute Nucleated RBC 0.000 Nucleated RBC % (auto) 0.0 PT 14.8 H INR 1.3 H Troponin I High Sens 19.3 D 06/24/21 05:36 WBC RBC Hgb Hct MCV MCH MCHC RDW Plt Count MPV Absolute Nucleated RBC Nucleated RBC % (auto) PT 15.0 H INR 1.3 H Troponin I High Sens <Renea Bob NP - Last Filed: 06/24/21 10:46> Discharge Plan Discharge Anticipated Discharge Date/Time: 06/24/21 12:00 <Renea Bob NP - Last Filed: 06/24/21 10:46> Patient Disposition: Home, Self-Care <Renea Bob NP - Last Filed: 06/24/21 10:46> Discharge Diagnosis: Acute blood loss anemia secondary to acute GI Bleed <Renea Bob NP - Last Filed: 06/24/21 10:46> Referrals: Physician,Unknown J [Primary Care Provider] - 1 Week <Renea Bob NP - Last Filed: 06/24/21 10:46> Discharge Medications: New omeprazole 40 mg Capsule,Delayed Release(Dr/Ec) 40 mg PO DAILY@0630 Qty: 30 0RF Continued aspirin 81 mg tablet,chewable 81 mg PO DAILY@1500 0RF folic acid 1 mg tablet 1 mg PO DAILY Qty: 90 1RF potassium chloride 20 mEq tablet,ER particles/crystals 20 meq PO DAILY Qty: 90 2RF metoprolol succinate 100 mg tablet extended release 24 hr 100 mg PO DAILY 60 Days Qty: 60 3RF febuxostat 40 mg tablet 40 mg PO DAILY Qty: 30 5RF furosemide 40 mg tablet 40 mg PO DAILY Qty: 60 0RF multivitamin Tablet 1 tab PO DAILY 0RF nicotine 14 mg/24 hr Patch 24 Hour 1 patch TRANSDERMAL DAILY 0RF calcium carbonate-vitamin D3 600 mg(1,500mg) -200 unit Tablet 1 tab PO DAILY 0RF PreserVision AREDS [id number] Capsule 1 cap PO DAILY 0RF acetaminophen 650 mg Tablet Extended Release 650 mg PO Q12H PRN (Reason: Pain) 0RF albuterol sulfate [Ventolin HFA] 90 mcg/actuation HFA aerosol inhaler 2 puff inhalation Q6H PRN (Reason: shortness of breath or wheezing) Qty: 6.7 0RF warfarin 1 mg Tablet 1 mg PO SUWE@1500 0RF warfarin 1 mg Tablet 2 mg PO MOTUTHFRSA@1500 0RF Rx Instructions: 2 mg all days except 1 mg on fri and fri per patient atorvastatin 40 mg tablet 40 mg PO BEDTIME 0RF valsartan [Diovan] 40 mg tablet 40 mg PO DAILY 90 Days Qty: 90 3RF digoxin 250 mcg (0.25 mg) tablet 250 mcg PO DAILY 90 Days Qty: 90 3RF metoprolol succinate 25 mg tablet extended release 24 hr 25 mg PO BEDTIME 90 Days Qty: 90 3RF meloxicam 15 mg tablet 15 mg PO DAILY Qty: 7 0RF Discontinued warfarin [Jantoven] 1 mg tablet 1 - 3 mg PO DAILY 90 Days Qty: 270 3RF Protocol: Dose Management Condition: Friday (Week One) Dose/Route: 1 mg Instruction: 1 x 1 mg tablet Condition: Friday Dose/Route: 2 mg Instruction: 2 x 1 mg tablets Condition: Friday Dose/Route: 2 mg Instruction: 2 x 1 mg tablets Condition: Friday Dose/Route: 1 mg Instruction: 1 x 1 mg tablet Condition: Dose/Route: 2 mg Instruction: 2 x 1 mg tablets Condition: Friday Dose/Route: 1 mg Instruction: 1 x 1 mg tablet Condition: Friday Dose/Route: 2 mg Instruction: 2 x 1 mg tablets Condition: Friday (Week Two) Dose/Route: 1 mg Instruction: 1 x 1 mg tablet Condition: Friday Dose/Route: 2 mg Instruction: 2 x 1 mg tablets Condition: Friday Dose/Route: 2 mg Instruction: 2 x 1 mg tablets Condition: Friday Dose/Route: 1 mg Instruction: 1 x 1 mg tablet Condition: Dose/Route: 2 mg Instruction: 2 x 1 mg tablets Condition: Friday Dose/Route: 2 mg Instruction: 2 x 1 mg tablets Condition: Friday Dose/Route: 2 mg Instruction: 2 x 1 mg tablets Protocol Text: Adjustment Start Date: Friday06/15/21 INR Value: 3.2 INR Date: 06/15/21 Recheck Date: 07/06/21 <Renea Bob NP - Last Filed: 06/24/21 10:46> Discharge Orders: Discharge Order (Routine); Ordered 06/24/21 Ordered By: Renea Bob <Renea Bob NP - Last Filed: 06/24/21 10:46> Diet: advance to usual diet <Renea Bob NP - Last Filed: 06/24/21 10:46> Activity on Discharge: As tolerated <Renea Bob NP - Last Filed: 06/24/21 10:46> Stand Alone Forms: Patient Portal Discharge page <Renea Bob NP - Last Filed: 06/24/21 10:46> Care Plan Goals: No further episodes of bleeding <Renea Bob NP - Last Filed: 06/24/21 10:46> Health Concerns: Acute blood loss anemia secondary to acute GI Bleed <Renea Bob NP - Last Filed: 06/24/21 10:46> Plan of Treatment: Follow up with Primary care provider as needed Continue taking warfarin as prescribed <Renea Bob NP - Last Filed: 06/24/21 10:46> Assessment: See discharge summary I personally saw and examined the patient in conjunction with mid level and discussed finding, a/p and disposition and I agree with the above <Renea Bob NP - Last Filed: 06/24/21 10:46>
[2021-06-24 08:00] VITALS: BP 169/76; PULSE 82; RESP 17; TEMP 36.8; O2SAT 97
[2021-06-24] MEDS: Calcium + Vitamin D 250 MG TABLET PO (08:51)
[2021-06-24] MEDS: Folic Acid 1 MG TABLET PO (08:51)
[2021-06-24] MEDS: Multivitamin TABLET 1 TAB PO (08:51)
[2021-06-24] MEDS: Nicotine 14 MG PATCH.TD24 TRANSDERMA (08:51)
[2021-06-24] MEDS: Potassium Chloride ER 20 MEQ TAB.ER.PRT PO (08:51)
[2021-06-24] MEDS: Digoxin 0.25 MG TABLET PO (08:51)
--- NOTE | 2021-06-24 10:57 | MHC.CM.PN ---
PT CLEARED TO DC HOME TODAY WITH NO SERVICES PT TO ARRANGE TRANSPORT
--- NOTE | 2021-06-24 12:05 | PC.NURSE ---
home meds Fubuxostat and Meloxican returned to patient.
== END 2021-06-24 13:21 | disposition home or self-care (01) | DRG 378 ==
LOC: HO.ED 14:45 → HO.EDOVER 22:33 → HO.S3 06-21 03:21
PROVIDERS: Internal Medicine Gastroenterology; Physician Assistant Medical; Admitting Provider Hospitalist; Emergency Provider Emergency Medicine Emergency Medical Services; Visit Provider Nurse Practitioner Acute Care
PROC: 0DB98ZX Excision of Duodenum, Via Natural or Artificial Opening Endoscopic, Diagnostic (ICD-10-PCS; principal; 2021-06-21 07:30)
DX: K29.71 Gastritis, unspecified, with bleeding (principal); D62 Acute posthemorrhagic anemia; D68.9 Coagulation defect, unspecified; I48.20 Chronic atrial fibrillation, unspecified; I50.32 Chronic diastolic (congestive) heart failure; K29.81 Duodenitis with bleeding; J44.9 Chronic obstructive pulmonary disease, unspecified; F17.200 Nicotine dependence, unspecified, uncomplicated; T39.395A Adverse effect of other nonsteroidal anti-inflammatory drugs [NSAID], initial encounter; T45.515A Adverse effect of anticoagulants, initial encounter; Z71.6 Tobacco abuse counseling; Z20.822 Contact with and (suspected) exposure to COVID-19; Z79.1 Long term (current) use of non-steroidal anti-inflammatories (NSAID); Z79.01 Long term (current) use of anticoagulants; Z79.82 Long term (current) use of aspirin; Z79.899 Other long term (current) drug therapy
CPT/HCPCS: 36415; 36430; 71045; 80048; 80053; 81003; 82272; 83690; 84484; 85025; 85027; 85610; 85730; 86850; 86900; 86901; 86923; 87635; 88305; 88342; 93005; 96361; 96374; 96375; 97162; 99285; 99291; 99292; J0171; J3430; J7168; P9016

== ENCOUNTER → 2021-07-06 09:43 | Outpatient (BNVA) | payer MEDICARE, SELFPAY | PROVIDERS: Visit Provider Internal Medicine | DX: I48.20 Chronic atrial fibrillation, unspecified (principal); Z51.81 Encounter for therapeutic drug level monitoring; Z79.01 Long term (current) use of anticoagulants | CPT/HCPCS: 85610; 99211 ==

== ENCOUNTER 2021-07-10 08:10 | Outpatient (REF) | payer MEDICARE, SELFPAY ==
--- NOTE | ~2021-07-10 | PE_ITS ---
EXAMINATION: Fluorine-18 FDG PET/CT Scan CLINICAL INDICATION: Subsequent treatment management. Right upper lobe lung cancer, restaging. PROCEDURE: 64 minutes following the intravenous administration of 17.1 mCi of fluorine 18 FDG, images from the base of the skull to the mid thighs were obtained using a combined PET/CT scanner with CT scan based attenuation correction. No oral contrast was administered. No intravenous contrast was administered. Transverse, coronal, sagittal, and volume reconstruction projections were obtained. The patient's blood glucose as determined by a finger stick, was 102 mg/dl immediately prior to injection. Total CT exam dose-length product 328.08 mGy-cm * These CT images were obtained using dose optimization techniques as appropriate, variously including the following: Automated exposure control * Adjustment of mA and/or kV according to patient size (this includes techniques or standardized protocols for targeted exams where dose is matched to indication/reason for exam; i.e. extremities or head) * Use of iterative reconstruction technique COMPARISON: The previous PET CT scan dated 12/12/2020 is available for comparison. FINDINGS: (Slice numbers described in this report are numbered superiorly to inferiorly with slice #1 in the head) NECK AND VISUALIZED HEAD: An FDG avid focus in the posterior aspect of the left parotid gland is noted, now showing SUVmax 8.7, slice 26/267, similar to the prior study when this showed SUVmax 11.2. It does not appear changed in size and is not well delineated on the CT images. No other foci of abnormal FDG activity are present in the neck or visualized head. There is no cervical lymphadenopathy. THORAX: Postsurgical changes in the right lung apex are noted. Foci of abnormally increased FDG activity travel from the anterior pleural surface of the right lung apex inferiorly and posteriorly, with the most intense focus in the inferior posterior aspect of the suture line in this region. This shows SUVmax 15.2, slice 70/267, and this is significantly more intense than on the prior 12/12/[address] scan when this showed SUVmax 10.8. The corresponding soft tissue density also appears significantly larger, now measuring 1.8 x 1.3 cm in largest transverse dimensions versus 1.2 x 0.7 cm previously. There is also been an increase in size and FDG avidity of a right suprahilar opacity, now showing SUVmax 4.4 versus SUVmax 3.7 previously. This now measures 1.9 x 1.7 no additional pulmonary nodules or foci of abnormal FDG activity are present in the lung parenchyma. Diffuse emphysema with an upper lobe predominance is noted. A right precarinal lymph node is similar in FDG avidity on the current and prior study, now showing SUVmax 5.7, slice 92/267 versus SUVmax 5.[address] images it is similar in size measuring 2.0 x 1.7 cm the larger in largest transverse dimensions versus 0.7 x 1.1 cm previously. There is a stable appearing subcentimeter right upper paratracheal lymph node, slice 76/267 which does not appear significantly changed from the prior. No additional mediastinal, supraclavicular, or axillary lymphadenopathy is present. There is no pleural or pericardial fluid, or pneumothorax. ABDOMEN AND PELVIS: There is mild FDG activity present throughout the gastrointestinal tract without a suspicious focal component. Mild FDG activity in the stomach is less intense than on the prior study and does not appear pathological. There is diverticulosis without evidence of diverticulitis, the hollow viscera are otherwise unremarkable. The liver and spleen are unremarkable. There is dependent sludge in the gallbladder but this is otherwise unremarkable. The adrenal glands and kidneys are unremarkable. The prostate gland is enlarged measuring 6.1 cm in largest transverse dimension. The pelvic organs are otherwise unremarkable. There is no retroperitoneal, mesenteric, pelvic or inguinal lymphadenopathy. MUSCULOSKELETAL: There is now only weak FDG activity in the anterolateral aspect of the right seventh rib, now with SUVmax 2.5, slice 135/267 versus SUVmax 3.7. There is a healing rib fracture at this site on the CT images. There are no other foci of abnormal FDG activity in the osseous structures. There are diffuse degenerative changes in the spine but no suspicious sclerotic or lytic lesions are present. There is a chronic compression deformity in the anterior endplate of T3 with no associated abnormal FDG activity. VASCULAR: Diffuse vascular calcifications including coronary are noted. Stable appearing ectasia of the infrarenal abdominal aorta now measures 2.7 cm in largest AP diameter. PET/PET CT fusion skull to thigh IMPRESSION: 1. There has been mild progression of FDG avid malignant lesions in the right upper lobe of the lung as evidenced by increasing FDG avidity and size on the CT images. 2. There is also been mild progression of an FDG avid precarinal lymph node. A right suprahilar FDG avid lymph node also shows a mild increase in FDG avidity. These findings are also evidence of mild progression of malignant disease. 3. An FDG avid left parotid lesion appears stable. An attempted ultrasound guided fine-needle aspirate of this lesion on 01/10/2021 did not yield diagnostic material. This remains nonspecific, but is slightly less intensely FDG avid on the current study compared to 12/12/2020. While this may represent a malignant lesion, benign parotid lesions such as pleomorphic adenomas or Warthin's tumors can also be FDG avid. 4. No additional abnormalities suspicious for metastatic or other malignant lesions are noted. 5. Cholelithiasis. 6. Diffuse vascular calcifications including coronary.
== END 2021-07-10 08:11 | disposition home or self-care (01) ==
LOC: HO.PET 08:10
PROVIDERS: Visit Provider Surgery
DX: Z13.89 Encounter for screening for other disorder (principal)

== ENCOUNTER 2021-07-16 08:47 | Outpatient (RCR) | payer MEDICARE, SELFPAY ==
--- NOTE | 2021-07-16 10:00 | MHC.PT.EP ---
[facility] [place] Office [address] [phone] F: [phone] F: [phone] F: [phone] F: [phone] Physical Therapy Plan of Care Date of Evaluation: Date of Surgery: Diagnosis: L knee effusion Assessment: 81 y/o male referred to PT with L knee effusion. He has an extensive PMH including CHF, COPD, HTN, PAD, CAD, lung CA with surgeries, R TKA, brain surgery for aneurysm with clips. CUrrently reports pain and difficulty with walking, stairs, and balance. He uses a cane, but has a walker at home (does not want to use walker.) Examination shows decreased B knee AROM, decreased LE strength, mild effusion L knee, decreased HS/gastroc length, impaired balance, and impaired gait pattern. Recommend PT 2x/week for 5 weeks to address impairments, implement HEP, and optimize functional mobility. Frequency and Duration: The patient will be seen 2x/week for 5 week Short Term Goals: 3 weeks 1. Initiate HEP 2. Improve L knee AROM to 0-10-115 [place] Goals: 5 weeks 1. I with HEP and self compliance with HEP 2. Pt will be able to ambulate > 20 min with LRAD and pain < 3/10 Treatment Plan: Modalities to reduce pain, spasms and effusion. Manual therapy to restore motion and function. Therapeutic exercise to improve strength and flexibility. Neuromuscular re-education for posture and balance. Therapeutic activities to return to functional activities of daily living. Electronically signed by: Xochitl Rubio PT Please sign and return to therapist. Thank you for your referral.
--- NOTE | 2021-08-27 15:23 | MHC.PT.DC ---
[facility] [place] [facility] [place] [facility] [place] [facility] [address] Aftab Kirkpatrick [address] [phone] F: [phone] F: [phone] F: [phone] F: [phone] Physical Therapy Discharge Report Diagnosis: L knee effusion Date of Surgery: Date of Evaluation: 07/16/21 Date of Discharge: 08/27/21 Treatments to Date: 1 Cancellations to Date: 0 No Shows to Date: 0 Discharge Status: Visit Non-compliance Discharge Summary: 81 y/o male referred to PT with L knee effusion. He has an extensive PMH including CHF, COPD, HTN, PAD, CAD, lung CA with surgeries, R TKA, brain surgery for aneurysm with clips. CUrrently reports pain and difficulty with walking, stairs, and balance. He uses a cane, but has a walker at home (does not want to use walker.) Examination shows decreased B knee AROM, decreased LE strength, mild effusion L knee, decreased HS/gastroc length, impaired balance, and impaired gait pattern. Recommend PT 2x/week for 5 weeks to address impairments, implement HEP, and optimize functional mobility. Electronically signed by: Xochitl Rubio PT Please sign and return to therapist. Thank you for your referral.
== END 2021-08-27 15:23 | disposition home or self-care (01) ==
LOC: HO.PTCHIC 08:47
PROVIDERS: PCP Internal Medicine; Visit Provider Internal Medicine
DX: M25.462 Effusion, left knee (principal)
CPT/HCPCS: 97110; 97162

== ENCOUNTER → 2021-07-20 08:58 | Outpatient (BNVA) | payer MEDICARE, SELFPAY | PROVIDERS: PCP Internal Medicine; Visit Provider Internal Medicine | DX: C34.11 Malignant neoplasm of upper lobe, right bronchus or lung (principal); R91.1 Solitary pulmonary nodule; R59.0 Localized enlarged lymph nodes; I48.20 Chronic atrial fibrillation, unspecified; Z79.01 Long term (current) use of anticoagulants; Z51.81 Encounter for therapeutic drug level monitoring | CPT/HCPCS: 85610; 99211; 99212 ==

== ENCOUNTER 2021-07-27 13:09 | Inpatient (IN) | payer MEDICARE, SELFPAY ==
[2021-07-27] VITALS (11 sets, daily range): BP systolic 103–140; BP diastolic 36–72; PULSE 49–70; RESP 16–26; TEMP 36.2–37.2; O2SAT 93–100; BMI 23.6
--- NOTE | ~2021-07-27 | XR_ITS ---
EXAMINATION: XR CHEST CLINICAL INFORMATION: Cough and shortness of breath COMPARISON: Previous chest x-ray most recent June 2021 TECHNIQUE: Frontal view of the chest was obtained. FINDINGS: The cardiac silhouette is enlarged but stable. Hilar and mediastinal contours are unremarkable. There are postsurgical changes to the right upper lung with chain jesus and clips. There is right apical pleural thickening. There is a nodular opacity adjacent to the surgical clips that appears unchanged. There is linear scarring or chronic subsegmental atelectasis in the right upper lung that appears unchanged. The lungs are otherwise clear. There is blunting at the left lateral costophrenic angle questionable for tiny left pleural effusion. There is no right pleural effusion. There is no pneumothorax. There are degenerative changes of the spine. XR/XR chest 1V IMPRESSION: No evidence for acute disease in the chest. Stable enlargement of the cardiac silhouette. Stable post surgical changes to the right upper lung.
--- NOTE | 2021-07-27 13:25 | ECG_ITS ---
Test Reason : dizziness Blood Pressure : / mmHG Vent. Rate : 060 BPM Atrial Rate : 000 BPM P-R Int : 000 ms QRS Dur : 158 ms QT Int : 468 ms P-R-T Axes : 000 -89 037 degrees QTc Int : 468 ms Atrial fibrillation Right bundle branch block Left anterior fascicular block Bifascicular block Abnormal ECG When compared with ECG of 23-JUN-2021 23:09, No significant changes seen Referred By: Marina Crabtree Electronically Signed By:Nick Ramesh
--- NOTE | 2021-07-27 13:30 | ED_ITS ---
HPI - Dizziness General Chief Complaint: Dizziness Stated Complaint: dizzy x2 days Time Seen by Provider: 07/27/21 13:25 Source: patient and old records reviewed Mode of arrival: EMS Limitations: no limitations History of Present Illness HPI Narrative: admitted here 06/20 -06/24 for UGIB requiring kcentra, IV PPI, 2 units of PRBCs found to have erosive gastritis and duodenitis resumed coumadin here with c/o dizziness x 2 days with standing and dark stools MD elicited complaint: dizziness and lightheadedness Pertinent past history: GI bleed Onset (ago): day(s) (2) Timing: intermittent Severity: moderate Description: lightheadedness Context: change in body position History of similar symptoms: Yes Exacerbating factors: movement/ambulation and change in body position Relieving factors: lying down Associated symptoms: malaise and other (dark stools) Related Data Home Medications Medication Instructions Recorded Confirmed calcium carbonate 600 mg-vitamin 1 tab PO DAILY 07/10/20 07/27/21 D3 5 mcg (200 unit) tablet multivitamin 1 tab PO DAILY 07/10/20 07/27/21 nicotine 14 mg/24 hr daily 1 patch TRANSDERMAL DAILY 07/10/20 07/27/21 transdermal patch vitamins A,C,Z-vmbm-dcnacq 14,320 1 cap PO DAILY 07/10/20 07/27/21 unit-226 mg-200 unit capsule (PreserVision AREDS) acetaminophen 650 mg 650 mg PO Q12H PRN 11/28/20 07/27/21 tablet,extended release aspirin 81 mg chewable tablet 81 mg PO DAILY@1500 12/29/20 07/27/21 atorvastatin 40 mg tablet 40 mg PO BEDTIME 06/20/21 07/27/21 warfarin 1 mg tablet 1 mg PO SUWEFR tab 07/20/21 07/27/21 warfarin 1 mg tablet 2 mg PO MOTUTHSA tab 07/20/21 07/27/21 Previous Rx's Medication Instructions Recorded albuterol sulfate 90 mcg/actuation 2 puff INHALATION Q6H PRN #6.7 g 11/30/20 aerosol inhaler (Ventolin HFA) folic acid 1 mg tablet 1 mg PO DAILY #90 tab 04/16/21 metoprolol succinate 100 mg 100 mg PO DAILY 60 Days #60 tab 04/17/21 tablet,extended release 24 hr potassium chloride 20 mEq 20 meq PO DAILY #90 tab 04/17/21 tablet,extended release(part/cryst) febuxostat 40 mg tablet 40 mg PO DAILY #30 tab 05/23/21 digoxin 250 mcg (0.25 mg) tablet 250 mcg PO DAILY 90 Days #90 tab 05/29/21 metoprolol succinate 25 mg 25 mg PO BEDTIME 90 Days #90 cap 05/29/21 tablet,extended release 24 hr valsartan 40 mg tablet (Diovan) 40 mg PO DAILY 90 Days #90 tab 05/29/21 furosemide 40 mg tablet 40 mg PO DAILY #60 tab 06/04/21 Allergies Allergy/AdvReac Type Severity Reaction Status Date / Time No Known Allergies Allergy Unknown UNKNOWN Verified 07/20/21 10:16 [NO KNOWN ALLERGIES] Review of Systems Review of Systems: Constitutional : No Weight loss, No Fever, No Chills ENT/Mouth : No sore throat, No Rhinorrhea Eyes: No Swelling, No Redness Cardiovascular : No Chest Pain, No SOB, NoEdema Respiratory : No Cough, No Sputum, No Wheezing Gastrointestinal : no Nausea, no Vomiting, no Diarrhea, no abdominal Pain, No Hematochezia, pos Melena Genitourinary : No Dysuria, No Urinary Frequency, No Hematuria, No Urgency Musculoskeletal : No joint pain, No Myalgias, No Joint Swelling Skin : No Skin Lesions, No rash Neuro : No Weakness, No Numbness, pos Dizziness, No Headache Psych : No Anxiety/Panic, No Depression Heme/Lymph: No Bruising, No Lymphadenopathy Endocrine : No Polyuria, No Polydipsia All other systems reviewed and are negative. [facility] Past Medical History Attestation statement: The following information was validated with the patient. Medical History Back pain Benign essential hypertension Bilateral lower extremity edema CAD (coronary artery disease) Cancer of upper lobe of right lung (~2013) Chronic atrial fibrillation Congestive heart failure COPD (chronic obstructive pulmonary disease) Gout Heart failure with reduced ejection fraction HLD (hyperlipidemia) Lumbar degenerative disc disease Neuropathy Osteoarthritis Osteoarthritis of knees, bilateral PAD (peripheral artery disease) Physical deconditioning Smoker Type 2 diabetes mellitus with other diabetic kidney complication Vitamin D deficiency Wears dentures Surgical History History of angioplasty (~12/2020) History of back surgery History of brain surgery (~2003) History of bronchoscopy (~2020) History of cardiac cath (~02/2016) History of colonoscopy (~01/2001) History of lung surgery (~07/2013) History of lung surgery (~2019) History of partial colectomy (~01/2001) History of right knee surgery (~09/2005) History of thoracentesis (~09/2019) Family History Family History Mother No problems noted. Social History Social History Household Members: None Housing: Condominium Are you a primary doggy daycare activities director to a significant other at home: No Do you presently have visiting nurse or other home services: No Alcohol intake: never Patient Tobacco Use Status: Current everyday Tobacco user Tobacco use type: Cigarette Cigarette Packs Per Day: 0.5 Cigarettes Per Day: 10.0 Years Smoked: 50 Second Hand Smoke Exposure: No Advance Directives: Yes Advance Directives on File: Yes Advance Directives Date on File: 11/29/20 service: No Current occupational status: retired Physical Exam Vital Signs: Vital Signs: Last Vital Signs Temp 98.1 F 07/27/21 13:18 Pulse 66 07/27/21 13:18 Resp 16 07/27/21 13:18 BP 128/53 L 07/27/21 13:18 Pulse Ox 99 07/27/21 13:18 BMI result Body Mass Index 23.6 Appearance: Alert. Oriented X3. No acute distress. Eyes: Pupils equal, round and reactive to light. ENT: Pharynx normal. Neck: Normal inspection. Neck supple. CVS: Normal heart rate and rhythm. Pulses normal. Respiratory: No respiratory distress. Breath sounds normal. Abdomen: Soft and nontender. Rectal: black stool noted Skin: Skin warm and dry. pale skin color. Normal skin turgor. Extremities: No lower extremity edema. No calf ttp Neuro: Oriented X 3. No motor deficit. No sensory deficit. Course Course Course Narrative: guiac positive H/H 6.2/20.3 IV protonix ordered, 2 UPRBCs - call to GI 230pm VS stable, INR 3.1, HD stable will attempt FFP and Vit K message sent to GI 240pm will observe and if he becomes unstable will give kcentra. Dr. Whitehead aware will consult agrees with plan MDM - Dizziness MDM Narrative Medical decision making narrative: 81 yo male with hx of UGIB from duodenitis, CAD, COPD, cardiomyopathy, afib on coumadin - resumed after GIB in june here with c/o black stools and postural dizziness at this time concern again for UGIB. Will obtain basic labs, type and screen, ortho VS, EKG, H/H level. Anticipate UGIB. Will need IV protonix and possibly transfusion. Dispo per results and findings. Lab Data Result diagrams: 07/27/21 13:51 07/27/21 13:51 Labs: Lab Results 07/27/21 07/27/21 07/27/21 Range/Units 13:51 13:51 13:51 WBC 4.3 L (4.8-10.8) X10*3/uL RBC 2.01 L D (4.60-5.80) X10*6/uL Hgb 6.2 L* D (14.0-18.0) g/dl Hct 20.3 L* D (42.0-52.0) % MCV 101.0 H (80.0-98.0) fL MCH 30.8 (27.0-33.0) pg MCHC 30.5 L (31.0-36.0) g/dl RDW 15.9 (11.0-16.0) % Plt Count 199 (160-400) X10*3/uL MPV 10.5 (9.4-12.4) fL Immature Gran % (Auto) 0.2 (0.0-0.4) % Neut % (Auto) 51.1 (45-73) % Lymph % (Auto) 28.4 (20-40) % [place] % (Auto) 13.3 H (2-11) % Eos % (Auto) 5.8 H (0-4) % Baso % (Auto) 1.2 (0-2) % Lymph # (Auto) 1.2 (1.2-4.9) X10*3/uL [place] # (Auto) 0.6 (0.1-1.2) X10*3/uL Eos # (Auto) 0.3 (0.0-0.4) X10*3/uL Baso # (Auto) 0.1 (0.0-0.2) X10*3/uL Abs Immat Gran (auto) 0.01 (0.00-0.03) X10*3/uL Absolute Neuts (auto) 2.2 (2.0-8.3) x10*3/uL Absolute Nucleated RBC 0.000 (0.0-0.012) X10*3/uL Nucleated RBC % (auto) 0.0 (0.0-0.2) /100WBC PT (9.9-13.0) SEC INR (0.9-1.1) Sodium 144 (135-145) mmol/L Potassium 4.7 (3.3-5.1) mmol/L Chloride 105 (96-108) mmol/L Carbon Dioxide 34 H (22-29) mmol/L Anion Gap 10 L (12-20) BUN 56 H (9-16) mg/dL Creatinine 1.26 (0.5-1.4) mg/dL Estim Creat Clear Calc 49.6 Estimated GFR 55 Random Glucose 88 (60-115) mg/dL Calcium 8.5 D (8.4-10.2) mg/dL Magnesium 2.6 (1.6-2.6) mg/dL Total Bilirubin 0.5 (0.0-1.0) mg/dL Direct Bilirubin 0.2 (0.0-0.5) mg/dL AST 16 (5-37) U/L ALT 15 (0-40) U/L Alkaline Phosphatase 77 (39-117) U/L Troponin I High Sens (<3.5-35.0) ng/L Total Protein 5.3 L (6.5-8.0) g/dL Albumin 3.2 L (3.5-5.0) g/dL Stool Occult Blood (NEGATIVE) COVID-19 (DAMASO) Negative (Negative) COVID-19 Clin Com See Note 07/27/21 07/27/21 07/27/21 Range/Units 13:51 13:51 13:51 WBC (4.8-10.8) X10*3/uL RBC (4.60-5.80) X10*6/uL Hgb (14.0-18.0) g/dl Hct (42.0-52.0) % MCV (80.0-98.0) fL MCH (27.0-33.0) pg MCHC (31.0-36.0) g/dl RDW (11.0-16.0) % Plt Count (160-400) X10*3/uL MPV (9.4-12.4) fL Immature Gran % (Auto) (0.0-0.4) % Neut % (Auto) (45-73) % Lymph % (Auto) (20-40) % [place] % (Auto) (2-11) % Eos % (Auto) (0-4) % Baso % (Auto) (0-2) % Lymph # (Auto) (1.2-4.9) X10*3/uL [place] # (Auto) (0.1-1.2) X10*3/uL Eos # (Auto) (0.0-0.4) X10*3/uL Baso # (Auto) (0.0-0.2) X10*3/uL Abs Immat Gran (auto) (0.00-0.03) X10*3/uL Absolute Neuts (auto) (2.0-8.3) x10*3/uL Absolute Nucleated RBC (0.0-0.012) X10*3/uL Nucleated RBC % (auto) (0.0-0.2) /100WBC PT 35.7 H (9.9-13.0) SEC INR 3.1 H (0.9-1.1) Sodium (135-145) mmol/L Potassium (3.3-5.1) mmol/L Chloride (96-108) mmol/L Carbon Dioxide (22-29) mmol/L Anion Gap (12-20) BUN (9-16) mg/dL Creatinine (0.5-1.4) mg/dL Estim Creat Clear Calc Estimated GFR Random Glucose (60-115) mg/dL Calcium (8.4-10.2) mg/dL Magnesium (1.6-2.6) mg/dL Total Bilirubin (0.0-1.0) mg/dL Direct Bilirubin (0.0-0.5) mg/dL AST (5-37) U/L ALT (0-40) U/L Alkaline Phosphatase (39-117) U/L Troponin I High Sens 12.1 (<3.5-35.0) ng/L Total Protein (6.5-8.0) g/dL Albumin (3.5-5.0) g/dL Stool Occult Blood POSITIVE (NEGATIVE) COVID-19 (DAMASO) (Negative) COVID-19 Clin Com ECG Data Attestation: I personally reviewed and interpreted this ECG as follows: ECG interpretation date: 07/27/21 ECG interpretation time: 14:03 Interpretation: Rate: 60 Rhythm: afib [place]:left RBBB ST T wave : artifact noted but no JONATAN qTC: normal prior studies: sig artifact noted but no JONATAN seen The study has been interpreted contemporaneously by me. Critical Care Time Critical Care Time Critical Care Time: Yes Total Critical Care Time: 60 Attestation: review of records, blood transfusions, reversal of INR, medical consult I attest to this time spent taking care of the patient Discharge Plan Discharge Clinical Impression: Dizziness, Acute blood loss anemia, Acute upper gastrointestinal bleeding Patient Disposition: Admitted As Inpatient
--- NOTE | 2021-07-27 14:13 | PHA.MEDREC ---
Pharmacy Consult ? Medication Reconciliation Pharmacy has completed the medication reconciliation. Patient had list of medicaitons. Medications did not populate on claim history, called Joslyn Brown in [facility] to confirm medications. Jenna Brandt, PharmD
[2021-07-27 14:18] LABS: MANUAL DIFF FLAG NO
[2021-07-27 14:19] LABS: Basophils Absolute Auto 0.1 X10*3/uL (0.0-0.2); Basophils Percent Auto 1.2 % (0-2); Eosinophils Absolute Auto 0.3 X10*3/uL (0.0-0.4); Eosinophils Percent Auto 5.8 % (0-4); Imm Gran Abs Auto 0.01 X10*3/uL (0.00-0.03); Imm Gran Pct Auto 0.2 % (0.0-0.4); Lymphocytes Absolute Auto 1.2 X10*3/uL (1.2-4.9); Lymphocytes Percent Auto 28.4 % (20-40); Mean Corpuscular HGB Conc 30.5 g/dl (31.0-36.0); Mean Corpuscular Hemoglobin 30.8 pg (27.0-33.0); Mean Platelet Volume 10.5 fL (9.4-12.4); Monocytes Absolute Auto 0.6 X10*3/uL (0.1-1.2); Monocytes Percent Auto 13.3 % (2-11); Neutrophils Absolute Auto 2.2 x10*3/uL (2.0-8.3); Neutrophils Percent Auto 51.1 % (45-73); Platelet Count 199 X10*3/uL (160-400); Red Blood Count 2.01 X10*6/uL (4.60-5.80); Red Cell Distribution Width 15.9 % (11.0-16.0); White Blood Count 4.3 X10*3/uL (4.8-10.8)
[2021-07-27 14:20] LABS: OBS Int Ctl Valid YES; OBS1 POSITIVE (NEGATIVE)
[2021-07-27 14:23] LABS: Hematocrit 20.3 % (42.0-52.0); Hemoglobin 6.2 g/dl (14.0-18.0)
[2021-07-27 14:24] LABS: INTERNATIONAL NORM RATIO 3.1 (0.9-1.1); Prothrombin Time 35.7 SEC (9.9-13.0)
[2021-07-27 14:35] LABS: Alanine Aminotransferase 15 U/L (0-40); Albumin Level 3.2 g/dL (3.5-5.0); Alkaline Phosphatase 77 U/L (39-117); Anion Gap 10 (12-20); Aspartate Amino Transferase 16 U/L (5-37); Bilirubin Direct 0.2 mg/dL (0.0-0.5); Bilirubin Total 0.5 mg/dL (0.0-1.0); Blood Urea Nitrogen 56 mg/dL (9-16); Calcium 8.5 mg/dL (8.4-10.2); Carbon Dioxide 34 mmol/L (22-29); Chloride 105 mmol/L (96-108); Creatinine Clr Calc Pharmacy 49.6; Estimated Glomerular Filt Rate 55; Glucose Random 88 mg/dL (60-115); Magnesium 2.6 mg/dL (1.6-2.6); Potassium 4.7 mmol/L (3.3-5.1); Sodium 144 mmol/L (135-145); Total Protein 5.3 g/dL (6.5-8.0)
[2021-07-27 14:41] LABS: COVID-19 Test Negative (Negative); Troponin-I High Sensitivity 12.1 ng/L (<3.5-35.0)
[2021-07-27 14:59] LABS: Digoxin 1.6 ng/mL (0.8-2.0)
[2021-07-27] MEDS: Pantoprazole Sodium 40 MG/10 ML VIAL IVPUSH (15:28)
[2021-07-27] MEDS: Phytonadione (Vit K1) 10 MG in 0.9 % Sodium Chloride 50 ML 51 MG IV (15:31)
[2021-07-27] MEDS: Pantoprazole Sodium 80 MG in 0.9 % Sodium Chloride 80 ML 10 MG IV (15:32)
--- NOTE | 2021-07-27 15:53 | PM.IMHP ---
History of Present Illness Date of Service: 07/27/21 Chief Complaint: Blood-loss anemia, dizziness An 81 years old male with PMH of CAD, HLD, AFib on warfarin, erosive gastritis among others who presents to the hospital the with complain of dizziness and weakness. The patient was recently admitted to the hospital for upper GI bleed and found to have erosive gastritis treated with PPI with fair response. For the last few days he has been complaining of worsening weakness and noticed dizziness upon moving and standing up. A report dark stools. In the emergency today he was found to have acute on chronic blood-loss anemia with symptomatic anemia as hemoglobin dropped to 6.2 requiring blood transfusion the emergency. He will be admitted for further evaluation and treatment. Review of Systems Review of Systems: No fever, chills but reported dizziness and generalized weakness No chest pain, palpitation No shortness of breath or coughing No abdominal pain, nausea or vomiting No urinary symptoms No any rash or wounds Dark stools PMFSH Medical History Back pain Benign essential hypertension Bilateral lower extremity edema CAD (coronary artery disease) Cancer of upper lobe of right lung (~2013) Chronic atrial fibrillation Congestive heart failure COPD (chronic obstructive pulmonary disease) Gout Heart failure with reduced ejection fraction HLD (hyperlipidemia) Lumbar degenerative disc disease Neuropathy Osteoarthritis Osteoarthritis of knees, bilateral PAD (peripheral artery disease) Physical deconditioning Smoker Type 2 diabetes mellitus with other diabetic kidney complication Vitamin D deficiency Wears dentures Family History Mother No problems noted. Surgical History History of angioplasty (~12/2020) History of back surgery History of brain surgery (~2003) History of bronchoscopy (~2020) History of cardiac cath (~02/2016) History of colonoscopy (~01/2001) History of lung surgery (~07/2013) History of lung surgery (~2019) History of partial colectomy (~01/2001) History of right knee surgery (~09/2005) History of thoracentesis (~09/2019) Social History Household Members: None Housing: Condominium Are you a primary infant caregiver to a significant other at home: No Do you presently have visiting nurse or other home services: No Alcohol intake: never Patient Tobacco Use Status: Current everyday Tobacco user Tobacco use type: Cigarette Cigarette Packs Per Day: 0.5 Cigarettes Per Day: 10.0 Years Smoked: 50 Second Hand Smoke Exposure: No Use of substances other than those prescribed or required for medical reasons: No Currently Displaying Signs/Symptoms of Drug Intoxication Withdrawal: No Have you been hit, kicked, punched, or otherwise hurt by someone within the past year? If so, by whom?: No Do you feel safe in your current relationship?: No Current Relationship Is there a partner from a previous relationship who is making you feel unsafe now?: No Are you made to feel afraid or neglected: No Advance Directives: Yes Advance Directives on File: Yes Advance Directives Date on File: 11/29/20 Do you have thoughts of harming others: None Do you have a plan to hurt others: No Plan Recently lost weight without trying: No Eating poorly because of decreased appetite: No Nutrition Risks: No Nutritional Risk service: No Current occupational status: retired [employer] Allergies Allergy/AdvReac Type Severity Reaction Status Date / Time No Known Allergies Allergy Unknown UNKNOWN Verified 07/20/21 10:16 [NO KNOWN ALLERGIES] Active Medications: Current Medications Pantoprazole Sodium 80 mg/ (Sodium Chloride) 100 mls @ 10 mls/hr IV .Q10H RADHA Last Admin: 07/27/21 15:32 Dose: 8 mg/hr, 10 mls/hr Documented by: Phytonadione 10 mg/ Sodium (Chloride) 51 mls @ 51 mls/hr IV ONCE ONE Stop: 07/27/21 15:59 Last Admin: 07/27/21 15:31 Dose: 51 mls/hr Documented by: Pharmacy Consult (Consult Rx Perform Med Rec) 1 each MISCELLANE ONCE PRN PRN Reason: Consult order Home Medications Medication Instructions Recorded Confirmed Last Taken Type calcium carbonate 600 mg-vitamin 1 tab PO DAILY 07/10/20 07/27/21 06/20/21 History D3 5 mcg (200 unit) tablet multivitamin 1 tab PO DAILY 07/10/20 07/27/21 06/20/21 History nicotine 14 mg/24 hr daily 1 patch TRANSDERMAL DAILY 07/10/20 07/27/21 06/19/21 History transdermal patch vitamins A,C,S-stqq-itangs 14,320 1 cap PO DAILY 07/10/20 07/27/21 06/20/21 History unit-226 mg-200 unit capsule (PreserVision AREDS) acetaminophen 650 mg 650 mg PO Q12H PRN 11/28/20 07/27/21 11/27/20 History tablet,extended release aspirin 81 mg chewable tablet 81 mg PO DAILY@1500 12/29/20 07/27/21 06/19/21 History atorvastatin 40 mg tablet 40 mg PO BEDTIME 06/20/21 07/27/21 06/19/21 History warfarin 1 mg tablet 1 mg PO SUWEFR tab 07/20/21 07/27/21 Unknown History warfarin 1 mg tablet 2 mg PO MOTUTHSA tab 07/20/21 07/27/21 Unknown History Physical Exam Vital Signs and Narrative: Vital Signs: Last Vital Signs Temp 98.1 F 07/27/21 13:18 Pulse 66 07/27/21 13:18 Resp 16 07/27/21 13:18 BP 128/53 L 07/27/21 13:18 Pulse Ox 99 07/27/21 13:18 BMI result Body Mass Index 23.6 Const: Other: Constitutional : Alert, interactive, not in distress, looks mildly pale Neck : Normal inspection, Supple Cardiovascular : RRR, S1 S2, no lower extremity edema Respiratory : Good bilateral air entry, no crackles, wheezes or rhonchi Gastrointestinal: soft, lax, Normal bowel sounds, Non tender Skin : Warm, Dry Neurological : Alert & oriented x3, No focal deficit Results Labs CBC and Chem 7: 07/28/21 06:19 07/28/21 06:19 Labs: Laboratory Results - last 24 hr 07/27/21 07/27/21 07/27/21 13:51 13:51 13:51 MCV 101.0 H MCH 30.8 MCHC 30.5 L RDW 15.9 Plt Count 199 MPV 10.5 Immature Gran % (Auto) 0.2 Neut % (Auto) 51.1 Lymph % (Auto) 28.4 [place] % (Auto) 13.3 H Eos % (Auto) 5.8 H Baso % (Auto) 1.2 Lymph # (Auto) 1.2 [place] # (Auto) 0.6 Eos # (Auto) 0.3 Baso # (Auto) 0.1 Abs Immat Gran (auto) 0.01 Absolute Neuts (auto) 2.2 Absolute Nucleated RBC 0.000 Nucleated RBC % (auto) 0.0 PT INR Anion Gap 10 L Estim Creat Clear Calc 49.6 Estimated GFR 55 Random Glucose 88 Calcium 8.5 D Magnesium 2.6 Total Bilirubin 0.5 Direct Bilirubin 0.2 AST 16 ALT 15 Alkaline Phosphatase 77 Total Protein 5.3 L Albumin 3.2 L Stool Occult Blood Digoxin COVID-19 (DAMASO) Negative COVID-19 Clin Com See Note Blood Type Antibody Screen Crossmatch 07/27/21 07/27/21 07/27/21 13:51 13:51 13:51 MCV MCH MCHC RDW Plt Count MPV Immature Gran % (Auto) Neut % (Auto) Lymph % (Auto) [place] % (Auto) Eos % (Auto) Baso % (Auto) Lymph # (Auto) [place] # (Auto) Eos # (Auto) Baso # (Auto) Abs Immat Gran (auto) Absolute Neuts (auto) Absolute Nucleated RBC Nucleated RBC % (auto) PT 35.7 H INR 3.1 H Anion Gap Estim Creat Clear Calc Estimated GFR Random Glucose Calcium Magnesium Total Bilirubin Direct Bilirubin AST ALT Alkaline Phosphatase Total Protein Albumin Stool Occult Blood POSITIVE Digoxin 1.6 COVID-19 (DAMASO) COVID-[employer] Blood Type Antibody Screen Crossmatch 07/27/21 14:55 MCV MCH MCHC RDW Plt Count MPV Immature Gran % (Auto) Neut % (Auto) Lymph % (Auto) [place] % (Auto) Eos % (Auto) Baso % (Auto) Lymph # (Auto) [place] # (Auto) Eos # (Auto) Baso # (Auto) Abs Immat Gran (auto) Absolute Neuts (auto) Absolute Nucleated RBC Nucleated RBC % (auto) PT INR Anion Gap Estim Creat Clear Calc Estimated GFR Random Glucose Calcium Magnesium Total Bilirubin Direct Bilirubin AST ALT Alkaline Phosphatase Total Protein Albumin Stool Occult Blood Digoxin COVID-19 (DAMASO) COVID-[employer] Com Blood Type A Positive Antibody Screen NEGATIVE Crossmatch See Detail Assessment and Plan (1) Acute upper gastrointestinal bleeding: Status: Acute (2) Dizziness: Status: Acute (3) Acute on chronic blood loss anemia: Status: Acute (4) Symptomatic anemia: Status: Acute Plan An 81 years old male with PMH of CAD, HLD, AFib on warfarin, erosive gastritis among others who presents to the hospital the with complain of dizziness and weakness. Symptomatic anemia 2/2 Acute on chronic blood-loss anemia To get transfusion to urinate FFP, 2 units RBCs from ED To get GI evaluation To give IV ppi Received vitamin K Follow H&H Goal to keep blood level above 8 Coagulopathy. Resolved INR 3.1 on admission received FFP and vitamin K in the ED PT INR daily Chronic afib BB on hold continue digoxin HFpEF chronic. no acute exacerbation po lasix on hold COPD, chronic no acute exacerbation continue prn albuterol HTN valsartan on hold for now with stable BP follow BP closely Smoker NRT discussed the importance of smoking cessation DVT Prophylaxis SCD boots Given presentation with acute blood loss anemia symptomatic anemia the patient will need at least 2 night in the hospital for further evaluation of the source of bleeding given high chance of decompensation. Quality Stroke Does the patient have a stroke diagnosis?: No VTE Prior VTE?: No VTE Risk Level:: Medical - moderate - high VTE Device Contraindication: N/A - Device Ordered VTE Drug Contraindication: Treatment Not Indicated
--- NOTE | 2021-07-27 17:11 | MHC.CM.PN ---
Addendum entered by Janette Celaya 07/27/21 17:27: Referral placed to [facility]. Original Note: CM met with admitted patient with bed assignment pending. A&O. IMM reviewed and signed, copy given and to medical records 07/27. HCP on file. HCP Chris Encinas ([phone]). Vaccinated x3, unsure of airport screener. Pt is independent at home. No services. Has cane and walker. Pt was recently admitted to [facility] 06/20-06/24 with UGIB, requiring Kcentra and transfusions. Pt on Coumadin. Pt is requesting VNA services at discharge and home PT. Explained that CM will request a PT evaluation while hospitalized. CM bridgett clarke hospitalist, PT evaluation ordered. D/C plan is home with VNA. Pt to arrange transportation home. CM to follow for d/c needs.
--- NOTE | 2021-07-27 20:16 | PM.EVENT ---
Event Note Date of Service: 07/27/21 Event Note: GI-Consult received and chart reviewed. Full consult to be done on 07/28/2021. I would agree with current management of reversing Coumadin and holding ASA, continue PPI, transfusions prn, and diet as tolerated. May need to consider repeat EGD, as well as a colonoscopy and small bowel video capsule study. Thanks
[2021-07-27] MEDS: Atorvastatin Calcium 40 MG TABLET PO (20:29)
[2021-07-27] MEDS: 0.9 % Sodium Chloride Flush 3 ML SYRINGE IVFLUSH (20:32)
[2021-07-27 23:38] LABS: Thyroid Stimulating Hormone 1.03 uIU/mL (0.32-4.0)
[2021-07-28] VITALS (10 sets, daily range): BP systolic 116–168; BP diastolic 54–68; PULSE 46–67; RESP 18–20; TEMP 36.6–37.3; O2SAT 90–98
[2021-07-28] MEDS: guaiFENesin LA 600 MG TAB.ER.12H PO ×2 (01:06→20:29)
[2021-07-28] MEDS: Pantoprazole Sodium 80 MG in 0.9 % Sodium Chloride 80 ML 10 MG IV ×3 (01:26→20:29)
[2021-07-28 06:45] LABS: Hematocrit 24.1 % (42.0-52.0); Hemoglobin 7.6 g/dl (14.0-18.0); Mean Corpuscular HGB Conc 31.5 g/dl (31.0-36.0); Mean Corpuscular Hemoglobin 30.9 pg (27.0-33.0); Mean Platelet Volume 10.8 fL (9.4-12.4); Platelet Count 162 X10*3/uL (160-400); Red Blood Count 2.46 X10*6/uL (4.60-5.80); Red Cell Distribution Width 15.9 % (11.0-16.0); White Blood Count 5.1 X10*3/uL (4.8-10.8)
[2021-07-28 06:52] LABS: INTERNATIONAL NORM RATIO 1.4 (0.9-1.1)
[2021-07-28 07:25] LABS: Anion Gap 11 (12-20); Blood Urea Nitrogen 49 mg/dL (9-16); Calcium 8.4 mg/dL (8.4-10.2); Carbon Dioxide 30 mmol/L (22-29); Chloride 108 mmol/L (96-108); Creatinine Clr Calc Pharmacy 57.3; Estimated Glomerular Filt Rate > 60; Glucose Random 91 mg/dL (60-115); Potassium 4.7 mmol/L (3.3-5.1); Sodium 144 mmol/L (135-145)
[2021-07-28] MEDS: 0.9 % Sodium Chloride Flush 3 ML SYRINGE IVFLUSH ×3 (08:41→20:29)
[2021-07-28] MEDS: Nicotine 14 MG PATCH.TD24 TRANSDERMA (08:42)
[2021-07-28] MEDS: Digoxin 0.25 MG TABLET PO (08:42)
--- NOTE | 2021-07-28 10:26 | PM.CNCAR ---
History of Present Illness History of Present Illness Date of Service: 07/28/21 Chief complaint: Afib, 3 sec pause, GI bleed Narrative: 81 year old gentleman with Afib on coumadin. He had recent GI bleed. Presenting with GI bleed again. Coumadin has been held. He is currently asymptomatic. Bleeding is stable. He had 3 sec pause while in afib. Asympatomatic. [facility], [facility] Past Medical History Medical History Back pain Benign essential hypertension Bilateral lower extremity edema CAD (coronary artery disease) Cancer of upper lobe of right lung (~2013) Chronic atrial fibrillation Congestive heart failure COPD (chronic obstructive pulmonary disease) Gout Heart failure with reduced ejection fraction HLD (hyperlipidemia) Lumbar degenerative disc disease Neuropathy Osteoarthritis Osteoarthritis of knees, bilateral PAD (peripheral artery disease) Physical deconditioning Smoker Type 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 Surgical History Surgical History History of angioplasty (~12/2020) History of back surgery History of brain surgery (~2003) History of bronchoscopy (~2020) History of cardiac cath (~02/2016) History of colonoscopy (~01/2001) History of lung surgery (~07/2013) History of lung surgery (~2019) History of partial colectomy (~01/2001) History of right knee surgery (~09/2005) History of thoracentesis (~09/2019) Social History Social History Household Members: None Housing: Condominium Are you a primary vision care associate to a significant other at home: No Do you presently have visiting nurse or other home services: No Alcohol intake: never Patient Tobacco Use Status: Current everyday Tobacco user Tobacco use type: Cigarette Cigarette Packs Per Day: 0.5 Cigarettes Per Day: 10.0 Years Smoked: 50 Second Hand Smoke Exposure: No Use of substances other than those prescribed or required for medical reasons: No Currently Displaying Signs/Symptoms of Drug Intoxication Withdrawal: No Have you been hit, kicked, punched, or otherwise hurt by someone within the past year? If so, by whom?: No Do you feel safe in your current relationship?: No Current Relationship Is there a partner from a previous relationship who is making you feel unsafe now?: No Are you made to feel afraid or neglected: No Advance Directives: Yes Advance Directives on File: Yes Advance Directives Date on File: 11/29/20 Do you have thoughts of harming others: None Do you have a plan to hurt others: No Plan Recently lost weight without trying: No Eating poorly because of decreased appetite: No Nutrition Risks: No Nutritional Risk service: No Current occupational status: retired [employer] Allergies Allergy/AdvReac Type Severity Reaction Status Date / Time No Known Allergies Allergy Unknown UNKNOWN Verified 07/20/21 10:16 [NO KNOWN ALLERGIES] Active Medications: Current Medications Acetaminophen (Acetaminophen 325 Mg Tablet) 650 mg PO Q6H PRN PRN Reason: Pain, Mild (Pain Scale 1-3) Atorvastatin Calcium (Atorvastatin Calcium 40 Mg Tablet) 40 mg PO BEDTIME [facility] Last Admin: 07/27/21 20:29 Dose: 40 mg Documented by: Benzonatate (Benzonatate 100 Mg Capsule) 100 mg PO TID [facility] Digoxin (Digoxin 0.25 Mg Tablet) 0.25 mg PO DAILY [facility] Last Admin: 07/28/21 08:42 Dose: 0.25 mg Documented by: Guaifenesin (Guaifenesin La 600 Mg Tab.Er.12h) 600 mg PO BID PRN PRN Reason: Cough Last Admin: 07/28/21 01:06 Dose: 600 mg Documented by: Pantoprazole Sodium 80 mg/ (Sodium Chloride) 100 mls @ 10 mls/hr IV .Q10H [facility] Nicotine (Nicotine 14 Mg Patch.Td24) 14 mg TRANSDERMA DAILY [facility] Last Admin: 07/28/21 08:42 Dose: 14 mg Documented by: Ondansetron HCl (Ondansetron Hcl 4 Mg/2 Ml Vial) 4 mg IVPUSH Q8H PRN PRN Reason: Nausea and Vomiting Pharmacy Consult (Consult Rx Perform Med Rec) 1 each MISCELLANE ONCE PRN PRN Reason: Consult order Sodium Chloride (0.9 % Sodium Chloride Flush 3 Ml Syringe) 3 ml IVFLUSH QSHIFT [facility] Last Admin: 07/28/21 08:41 Dose: 3 ml Documented by: Home Medications Medication Instructions Recorded Confirmed Last Taken Type calcium carbonate 600 mg-vitamin 1 tab PO DAILY 07/10/20 07/27/21 06/20/21 History D3 5 mcg (200 unit) tablet multivitamin 1 tab PO DAILY 07/10/20 07/27/21 06/20/21 History nicotine 14 mg/24 hr daily 1 patch TRANSDERMAL DAILY 07/10/20 07/27/21 06/19/21 History transdermal patch vitamins A,C,S-jttd-uumzfj 14,320 1 cap PO DAILY 07/10/20 07/27/21 06/20/21 History unit-226 mg-200 unit capsule (PreserVision AREDS) acetaminophen 650 mg 650 mg PO Q12H PRN 11/28/20 07/27/21 11/27/20 History tablet,extended release aspirin 81 mg chewable tablet 81 mg PO DAILY@1500 12/29/20 07/27/21 06/19/21 History atorvastatin 40 mg tablet 40 mg PO BEDTIME 06/20/21 07/27/21 06/19/21 History warfarin 1 mg tablet 1 mg PO SUWEFR tab 07/20/21 07/27/21 Unknown History warfarin 1 mg tablet 2 mg PO MOTUTHSA tab 07/20/21 07/27/21 Unknown History Physical Exam Vital Signs: Vital Signs: Last Vital Signs Temp 98.9 F 07/28/21 07:44 Pulse 64 07/28/21 07:44 Resp 20 07/28/21 07:44 BP 134/62 07/28/21 07:44 Pulse Ox 90 L 07/28/21 07:44 BMI result Body Mass Index 23.6 GENERAL APPEARANCE: in no acute distress, pleasant. NECK: no carotid bruit, no jugular venous distention. SKIN: no suspicious lesions, warm and dry. HEART: no murmurs, irregular rate and rhythm. LUNGS: clear to auscultation bilaterally. ABDOMEN: soft, nontender. EXTREMITIES: no edema. PERIPHERAL PULSES: equal. NEUROLOGIC: No gross deficits, AAO X 3 Objective Labs and Meds Result diagrams: 07/28/21 06:19 07/28/21 06:19 Lab results: Laboratory Results - last 24 hr 07/27/21 07/27/21 07/27/21 13:51 13:51 13:51 WBC 4.3 L RBC 2.01 L D Hgb 6.2 L* D Hct 20.3 L* D MCV 101.0 H MCH 30.8 MCHC 30.5 L RDW 15.9 Plt Count 199 MPV 10.5 Immature Gran % (Auto) 0.2 Neut % (Auto) 51.1 Lymph % (Auto) 28.4 Ritchie % (Auto) 13.3 H Eos % (Auto) 5.8 H Baso % (Auto) 1.2 Lymph # (Auto) 1.2 Ritchie # (Auto) 0.6 Eos # (Auto) 0.3 Baso # (Auto) 0.1 Abs Immat Gran (auto) 0.01 Absolute Neuts (auto) 2.2 Absolute Nucleated RBC 0.000 Nucleated RBC % (auto) 0.0 PT INR Sodium 144 Potassium 4.7 Chloride 105 Carbon Dioxide 34 H Anion Gap 10 L BUN 56 H Creatinine 1.26 Estim Creat Clear Calc 49.6 Estimated GFR 55 Random Glucose 88 Calcium 8.5 D Magnesium 2.6 Total Bilirubin 0.5 Direct Bilirubin 0.2 AST 16 ALT 15 Alkaline Phosphatase 77 Troponin I High Sens Total Protein 5.3 L Albumin 3.2 L TSH Stool Occult Blood Digoxin COVID-19 (DAMASO) Negative COVID-[employer] See Note Blood Type Antibody Screen Crossmatch 07/27/21 07/27/21 07/27/21 13:51 13:51 13:51 WBC RBC Hgb Hct MCV MCH MCHC RDW Plt Count MPV Immature Gran % (Auto) Neut % (Auto) Lymph % (Auto) [place]itchie % (Auto) Eos % (Auto) Baso % (Auto) Lymph # (Auto) [place]itchie # (Auto) Eos # (Auto) Baso # (Auto) Abs Immat Gran (auto) Absolute Neuts (auto) Absolute Nucleated RBC Nucleated RBC % (auto) PT 35.7 H INR 3.1 H Sodium Potassium Chloride Carbon Dioxide Anion Gap BUN Creatinine Estim Creat Clear Calc Estimated GFR Random Glucose Calcium Magnesium Total Bilirubin Direct Bilirubin AST ALT Alkaline Phosphatase Troponin I High Sens 12.1 Total Protein Albumin TSH Stool Occult Blood Digoxin 1.6 COVID-19 (DAMASO) COVID-[employer] Com Blood Type Antibody Screen Crossmatch 07/27/21 07/27/21 07/27/21 13:51 14:55 22:49 WBC RBC Hgb Hct MCV MCH MCHC RDW Plt Count MPV Immature Gran % (Auto) Neut % (Auto) Lymph % (Auto) Ritchie % (Auto) Eos % (Auto) Baso % (Auto) Lymph # (Auto) [place]itchie # (Auto) Eos # (Auto) Baso # (Auto) Abs Immat Gran (auto) Absolute Neuts (auto) Absolute Nucleated RBC Nucleated RBC % (auto) PT INR Sodium Potassium Chloride Carbon Dioxide Anion Gap BUN Creatinine Estim Creat Clear Calc Estimated GFR Random Glucose Calcium Magnesium Total Bilirubin Direct Bilirubin AST ALT Alkaline Phosphatase Troponin I High Sens Total Protein Albumin TSH 1.03 Stool Occult Blood POSITIVE Digoxin COVID-19 (DAMASO) COVID-19 Clin Com Blood Type A Positive Antibody Screen NEGATIVE Crossmatch See Detail 07/28/21 07/28/21 07/28/21 06:19 06:19 06:19 WBC 5.1 RBC 2.46 L D Hgb 7.6 L D Hct 24.1 L MCV 98.0 MCH 30.9 MCHC 31.5 RDW 15.9 Plt Count 162 MPV 10.8 Immature Gran % (Auto) Neut % (Auto) Lymph % (Auto) Ritchie % (Auto) Eos % (Auto) Baso % (Auto) Lymph # (Auto) Ritchie # (Auto) Eos # (Auto) Baso # (Auto) Abs Immat Gran (auto) Absolute Neuts (auto) Absolute Nucleated RBC 0.000 Nucleated RBC % (auto) 0.0 PT 16.0 H INR 1.4 H Sodium 144 Potassium 4.7 Chloride 108 Carbon Dioxide 30 H Anion Gap 11 L BUN 49 H Creatinine 1.09 Estim Creat Clear Calc 57.3 Estimated GFR > 60 Random Glucose 91 Calcium 8.4 Magnesium Total Bilirubin Direct Bilirubin AST ALT Alkaline Phosphatase Troponin I High Sens Total Protein Albumin TSH Stool Occult Blood Digoxin COVID-19 (DAMASO) COVID-19 Clin Com Blood Type Antibody Screen Crossmatch Imaging Radiologist's impression: Impressions Chest X-Ray 07/28/21 09:53 IMPRESSION: No evidence for acute disease in the chest. Stable enlargement of the cardiac silhouette. Stable post surgical changes to the right upper lung. Assessment and Plan (1) Symptomatic anemia: Status: Acute (2) Acute on chronic blood loss anemia: Status: Acute (3) Chronic atrial fibrillation: Status: Acute Plan 81 male with chronic Afib and GI bleed. Stop the coumadin. We will arrange assessment for Watchman once he is stable. 3 sec pause in Afib. No indication for pacemaker, continue to monitor on tele. Stop the digoxin. Thank you for allowing me to participate in the care of your patient. Please feel free to contact me if you have any questions. Procedures Date of Service Date of Service: 07/28/21
[2021-07-28] MEDS: Benzonatate 100 MG CAPSULE PO ×3 (11:25→20:29)
--- NOTE | 2021-07-28 13:14 | HO.PM.IMPN ---
Subjective Subjective Date of Service: 07/28/21 Interval History: the patient was seen and evaluated this morning Laying in bed, feels comfortable overall Reporting coughing No bleeding reported overnight Denies any fever, chills or shortness of breath No reported other overnight events. Review of Systems No fever, chills but reported dizziness has improved No chest pain, palpitation No shortness of breath or coughing No abdominal pain, nausea or vomiting No urinary symptoms No any rash or wounds Dark stools Physical Exam Vital Signs: Vital Signs: Last Vital Signs Temp 98.6 F 07/28/21 11:43 Pulse 52 07/28/21 11:43 Resp 18 07/28/21 11:43 BP 116/55 L 07/28/21 11:43 Pulse Ox 97 07/28/21 11:43 BMI result Body Mass Index 23.6 Const: Other: Constitutional : Alert, interactive, not in distress, looks mildly pale Neck : Normal inspection, Supple Cardiovascular : Irregular irregular, S1 S2, no lower extremity edema Respiratory : Good bilateral air entry, no crackles, wheezes or rhonchi Gastrointestinal: soft, lax, Normal bowel sounds, Non tender Skin : Warm, Dry Neurological : Alert & oriented x3, No focal deficit Objective Data Active Medications Acetaminophen (Acetaminophen 325 Mg Tablet) 650 mg PO Q6H PRN PRN Reason: Pain, Mild (Pain Scale 1-3) Atorvastatin Calcium (Atorvastatin Calcium 40 Mg Tablet) 40 mg PO BEDTIME [facility] Last Admin: 07/27/21 20:29 Dose: 40 mg Documented by: HILARY Benzonatate (Benzonatate 100 Mg Capsule) 100 mg PO TID [facility] Last Admin: 07/28/21 11:25 Dose: 100 mg Documented by: LAVON Digoxin (Digoxin 0.25 Mg Tablet) 0.25 mg PO DAILY [facility] Last Admin: 07/28/21 08:42 Dose: 0.25 mg Documented by: LAVON Guaifenesin (Guaifenesin La 600 Mg Tab.Er.12h) 600 mg PO BID PRN PRN Reason: Cough Last Admin: 07/28/21 01:06 Dose: 600 mg Documented by: HILARY Pantoprazole Sodium 80 mg/ (Sodium Chloride) 100 mls @ 10 mls/hr IV .Q10H [facility] Last Admin: 07/28/21 11:25 Dose: 8 mg/hr, 10 mls/hr Documented by: LAVON Nicotine (Nicotine 14 Mg Patch.Td24) 14 mg TRANSDERMA DAILY [facility] Last Admin: 07/28/21 08:42 Dose: 14 mg Documented by: LAVON Ondansetron HCl (Ondansetron Hcl 4 Mg/2 Ml Vial) 4 mg IVPUSH Q8H PRN PRN Reason: Nausea and Vomiting Pharmacy Consult (Consult Rx Perform Med Rec) 1 each MISCELLANE ONCE PRN PRN Reason: Consult order Sodium Chloride (0.9 % Sodium Chloride Flush 3 Ml Syringe) 3 ml IVFLUSH QSHIFT [facility] Last Admin: 07/28/21 08:41 Dose: 3 ml Documented by: LAVON Labs CBC & Chem 7: 07/28/21 06:19 07/28/21 06:19 Labs: Laboratory Results - last 24 hr 07/27/21 07/27/21 07/27/21 13:51 13:51 13:51 MCV 101.0 H MCH 30.8 MCHC 30.5 L RDW 15.9 Plt Count 199 MPV 10.5 Immature Gran % (Auto) 0.2 Neut % (Auto) 51.1 Lymph % (Auto) 28.4 [place] % (Auto) 13.3 H Eos % (Auto) 5.8 H Baso % (Auto) 1.2 Lymph # (Auto) 1.2 [place] # (Auto) 0.6 Eos # (Auto) 0.3 Baso # (Auto) 0.1 Abs Immat Gran (auto) 0.01 Absolute Neuts (auto) 2.2 Absolute Nucleated RBC 0.000 Nucleated RBC % (auto) 0.0 PT INR Anion Gap 10 L Estim Creat Clear Calc 49.6 Estimated GFR 55 Random Glucose 88 Calcium 8.5 D Magnesium 2.6 Total Bilirubin 0.5 Direct Bilirubin 0.2 AST 16 ALT 15 Alkaline Phosphatase 77 Total Protein 5.3 L Albumin 3.2 L TSH Stool Occult Blood Digoxin COVID-19 (DAMASO) Negative COVID-19 Clin Com See Note Blood Type Antibody Screen Crossmatch 07/27/21 07/27/21 07/27/21 13:51 13:51 13:51 MCV MCH MCHC RDW Plt Count MPV Immature Gran % (Auto) Neut % (Auto) Lymph % (Auto) [place] % (Auto) Eos % (Auto) Baso % (Auto) Lymph # (Auto) [place] # (Auto) Eos # (Auto) Baso # (Auto) Abs Immat Gran (auto) Absolute Neuts (auto) Absolute Nucleated RBC Nucleated RBC % (auto) PT 35.7 H INR 3.1 H Anion Gap Estim Creat Clear Calc Estimated GFR Random Glucose Calcium Magnesium Total Bilirubin Direct Bilirubin AST ALT Alkaline Phosphatase Total Protein Albumin TSH Stool Occult Blood POSITIVE Digoxin 1.6 COVID-19 (DAMASO) COVID-19 [place] Mode Blood Type Antibody Screen Crossmatch 07/27/21 07/27/21 07/28/21 14:55 22:49 06:19 MCV 98.0 MCH 30.9 MCHC 31.5 RDW 15.9 Plt Count 162 MPV 10.8 Immature Gran % (Auto) Neut % (Auto) Lymph % (Auto) [place] % (Auto) Eos % (Auto) Baso % (Auto) Lymph # (Auto) [place] # (Auto) Eos # (Auto) Baso # (Auto) Abs Immat Gran (auto) Absolute Neuts (auto) Absolute Nucleated RBC 0.000 Nucleated RBC % (auto) 0.0 PT INR Anion Gap Estim Creat Clear Calc Estimated GFR Random Glucose Calcium Magnesium Total Bilirubin Direct Bilirubin AST ALT Alkaline Phosphatase Total Protein Albumin TSH 1.03 Stool Occult Blood Digoxin COVID-19 (DAMASO) COVID-[employer] Blood Type A Positive Antibody Screen NEGATIVE Crossmatch See Detail 07/28/21 07/28/21 06:19 06:19 MCV MCH MCHC RDW Plt Count MPV Immature Gran % (Auto) Neut % (Auto) Lymph % (Auto) [place] % (Auto) Eos % (Auto) Baso % (Auto) Lymph # (Auto) [place] # (Auto) Eos # (Auto) Baso # (Auto) Abs Immat Gran (auto) Absolute Neuts (auto) Absolute Nucleated RBC Nucleated RBC % (auto) PT 16.0 H INR 1.4 H Anion Gap 11 L Estim Creat Clear Calc 57.3 Estimated GFR > 60 Random Glucose 91 Calcium 8.4 Magnesium Total Bilirubin Direct Bilirubin AST ALT Alkaline Phosphatase Total Protein Albumin TSH Stool Occult Blood Digoxin COVID-19 (DAMASO) [employer] Blood Type Antibody Screen Crossmatch Assessment and Plan (1) Symptomatic anemia: Status: Acute (2) Acute on chronic blood loss anemia: Status: Acute Plan An 81 years old male with PMH of CAD, HLD, AFib on warfarin, erosive gastritis among others who presents to the hospital the with complain of dizziness and weakness. Symptomatic anemia 2/2 Acute on chronic blood-loss anemia Received 2 FFP, 2 units RBCs from ED Hemoglobin improved to 7.6 to given extra unit of blood To get GI evaluation Continue IV ppi Received vitamin K Follow H&H Goal to keep blood level above 8 Cardiac pauses Noted on telemetry, pauses of maximum 3 seconds, asymptomatic Cardiology input appreciated, no intervention needed Coagulopathy. Resolved INR to 1.4 today PT INR daily hold warfarin Chronic afib BB on hold continue digoxin Cardiology to evaluate possible Watchman device placement HFpEF chronic. no acute exacerbation po lasix on hold COPD, chronic no acute exacerbation continue prn albuterol HTN valsartan on hold for now with stable BP follow BP closely DVT Prophylaxis SCD boots Need of hospital stay for acute blood loss anemia symptomatic anemia the patient will need blood transfusion, evaluation of the source of bleeding given high chance of decompensation. Quality Stroke Does the patient have a stroke diagnosis?: No VTE Prior VTE?: No VTE Risk Level:: Medical - moderate - high VTE Device Contraindication: N/A - Device Ordered VTE Drug Contraindication: Treatment Not Indicated
--- NOTE | 2021-07-28 16:16 | PM.EVENT ---
Event Note Date of Service: 07/28/21 Event Note: GI Consult-Full note dictated-Hx from patient and his daughter, Jada, and from EMR Imp: Recurrent problem with anemia and Heme + stool requiring transfusions. He had an EGD in 06/[address] Gr showing only duodenitis and gastritis. He was sent home on omeprazole. He is on Warfarin and ASA at home, and smokes 1/2 ppd. He had a negative colonoscopy in 2000 and a subsequent sigmoid/descending colon resection for diverticular bleeding in 2000. He has had no subsequent colonoscopies. He denies any new GI sx, but does notice occasional dark stools. He is in the midst of an evaluation with Dr. Solorio and Dr. Campbell for a ? of recurrent lung cancer with an abnormal PET-CT scan and possible need for repeat biopsy/surgery as well. Diff dx: GI blood loss due to colon cancer, AVM's, and/or chronic UGI inflammation, Rec: Colonoscopy and repeat EGD on Friday(OR schedule permitting) with me or Dr. Gr. Full consent obtained for this, including risks of bleeding and perforation. F/U Hgb and transfuse as needed for Hgb > 9. Monitor PT/INR and hold Coumadin/Aspirin. Continue PPI. D/W patient and his daughter, Jada, in detail and they are comfortable with this plan. Thanks
--- NOTE | 2021-07-28 16:43 | MHC.SHP ---
Pre-Procedural Eval Section A Date of Service: 07/30/21 The patient is an INPATIENT: Yes The History & Physical has been completed within 30 days and I have reviewed it.: Yes Section B Chief Complaint: Dizziness Allergies: Allergies Allergy/AdvReac Type Severity Reaction Status Date / Time No Known Allergies Allergy Unknown UNKNOWN Verified 07/20/21 10:16 [NO KNOWN ALLERGIES] Plan I have reviewed the history and physical and performed a pertinent physical examination on my patient. No changes have occurred unless specified.
[2021-07-28] MEDS: Atorvastatin Calcium 40 MG TABLET PO (20:29)
[2021-07-28] MEDS: bisacodyL 5 MG TABLET.DR 10 MG PO (20:29)
--- NOTE | 2021-07-29 02:01 | CONS_ITS ---
DATE OF SERVICE: 07/28/2021 REASON FOR CONSULTATION: Heme-positive stool and anemia. HISTORY OF PRESENT ILLNESS: This has been obtained from the patient and his daughter, Jada, as well as the medical record. Patient is an 81-year-old male who is on chronic Coumadin and aspirin, and was admitted here just about a month ago for anemia with heme-positive stool. At that time, he underwent an upper endoscopy with Dr. Gr revealing some duodenitis and gastritis, but without any bleeding lesions, nor other significant pathology noted. Gastric biopsies were negative for H pylori. He was sent home on his usual medications as well as a course of omeprazole. Prior to the admission in June, he does describe having used some NSAIDs in regard to knee pain. Since being home from that admission, he denies using any further NSAIDs. He does think his stools are occasionally dark, but does not use any iron, nor Pepto-Bismol. He was admitted here again due to recurrent anemia and the finding of heme-positive stool again. He has received blood transfusions and is feeling slightly better. Aside from noticing some dark stools, he does not have any other particular GI symptoms. He denies any chronic heartburn nor dysphagia. He has had no nausea nor vomiting. His bowel movements are fairly regular and he has not noticed any diarrhea, hematochezia, nor significant constipation. He denies any jaundice, abdominal pain, nor significant weight loss. He denies any history of ulcer disease. He did have a colonoscopy with ak in 2000 that was negative except for diverticulosis. That was done during an admission for lower GI bleed and he subsequently underwent a resection of the sigmoid and descending colon due to persistent bleeding from that area. He has not had any subsequent colonoscopies. Since admission here, he has otherwise been stable and does not show any signs of obvious bleeding. However, he does report that his stool this morning was still somewhat dark. Of note, he is also in the midst of a workup with Dr. Tan and Dr. Solorio for questionable recurrent lung cancer in the right lung. He had a PET-CT scan on July 10 describing increased activity in that area, but no other areas of suspicion on the rest of the scan. There is some increased activity in the parotid gland. However, biopsies from the lung and parotid gland have been not revealing as far as cancer is concerned. MEDICATIONS: At home included albuterol, aspirin 1 mg, atorvastatin, vitamin D, calcium, digoxin, folic acid, Lasix, metoprolol, multivitamin, valsartan, and warfarin. Medications here in the hospital include atorvastatin, Tessalon for cough, digoxin, Mucinex p.r.n., nicotine patch, Zofran, IV Protonix, and vitamin K. PAST MEDICAL HISTORY: Surgeries have included brain surgery for an aneurysm, lung cancer surgery in the right upper lobe, colon resection as above. He has also had 3 back surgeries. Medical problems include the lung cancer as above, COPD, hypertension, atrial fibrillation. He denies any history of PA or stroke. He denies any diabetes nor any known renal problems. He has gout. History of CHF. Hyperlipidemia. SOCIAL HISTORY: He is a . He lives by himself. He smokes about half a pack a day, but does not use any alcohol. FAMILY HISTORY: Noncontributory. REVIEW OF SYSTEMS: CONSTITUTIONAL: He has been feeling weak at home, which prompted this admission. SKIN: Skin is warm. Skin without rash. No pruritus. CARDIAC: No chest pain. PULMONARY: He does have some coughing, but no hemoptysis. GI: As above. PHYSICAL EXAMINATION: GENERAL: The patient is thin, pleasant, alert male, in no distress. SKIN: Warm and dry. He is pale. Anicteric sclerae. NECK: Supple. ABDOMEN: Soft, nondistended, nontender. LABORATORY DATA: His discharge hemoglobin on June 24 was 8.5 and the hemoglobin on this admission from yesterday was 6.2. Hemoglobin today is 7.6 after transfusions. Platelet count is normal. PT was 35.7, INR was 3.1 yesterday, and today PT was 16.0 with INR 1.4. Normal electrolytes. BUN yesterday was 56 with a creatinine 1.3 and today BUN is 49 with creatinine 1.1. LFTs were normal yesterday. Stool was heme positive again yesterday, was also heme-positive in June. PET-CT scan from earlier this month as above. Chest x-ray did not show any acute process on this admission. IMPRESSION: Given the patient's clinical history of recurrent anemia and persistent heme-positive stool despite a basically nonrevealing upper endoscopy a month ago, I would recommend further evaluation with a colonoscopy since he has not had this done in 20 years, as well as a repeat upper endoscopy given the reported dark stool and ongoing use of anticoagulants and aspirin at home. This has been reviewed in detail with the patient and his daughter, and full consent has been obtained for this including risks of bleeding and perforation. I advised him that I think it will be important to do this while he is an inpatient before putting him back on his blood thinners, as well as contemplating any further lung surgery as I do think it would be important to rule out any type of lower gastrointestinal neoplasm or other significant bleeding lesion. In the meantime, I will continue close monitoring of the hemoglobin and transfuse as needed to maintain hemoglobin of about 9 given his underlying medical issues. I think his PPI can be switched to an oral PPI. Orders will be written for change in diet and the bowel prep. He will also have a repeat pro-time with INR for tomorrow. I did review with him that the procedure would be done either by me or Dr. Gr with monitored anesthesia care, and again did advise that the procedure would be both colonoscopy and a repeat upper endoscopy. This has all been discussed with the patient and his daughter in detail and they are comfortable with the plan. Thank you for the consultation. MD DORA Wong/SADAF / [id number] MTDNino
[2021-07-29 04:00] VITALS: BP 149/71; PULSE 78; RESP 17; TEMP 37; O2SAT 95
[2021-07-29] MEDS: Pantoprazole Sodium 80 MG in 0.9 % Sodium Chloride 80 ML 10 MG IV (04:31)
[2021-07-29 06:40] LABS: INTERNATIONAL NORM RATIO 1.3 (0.9-1.1); Prothrombin Time 14.8 SEC (9.9-13.0)
[2021-07-29 06:45] LABS: Hematocrit 26.5 % (42.0-52.0); Hemoglobin 8.4 g/dl (14.0-18.0); Mean Corpuscular HGB Conc 31.7 g/dl (31.0-36.0); Mean Corpuscular Volume 97.8 fL (80.0-98.0); Mean Platelet Volume 10.8 fL (9.4-12.4); Platelet Count 142 X10*3/uL (160-400); Red Blood Count 2.71 X10*6/uL (4.60-5.80); Red Cell Distribution Width 15.4 % (11.0-16.0); White Blood Count 4.9 X10*3/uL (4.8-10.8)
[2021-07-29 07:12] LABS: Anion Gap 8 (12-20); Blood Urea Nitrogen 38 mg/dL (9-16); Calcium 8.2 mg/dL (8.4-10.2); Carbon Dioxide 31 mmol/L (22-29); Chloride 108 mmol/L (96-108); Creatinine Clr Calc Pharmacy 66.5; Estimated Glomerular Filt Rate > 60; Glucose Random 99 mg/dL (60-115); Potassium 4.3 mmol/L (3.3-5.1); Sodium 143 mmol/L (135-145)
[2021-07-29 08:00] VITALS: BP 134/60; PULSE 73; RESP 20; TEMP 36.8; O2SAT 95
[2021-07-29] MEDS: Nicotine 14 MG PATCH.TD24 TRANSDERMA (10:15)
[2021-07-29] MEDS: Benzonatate 100 MG CAPSULE PO ×3 (10:16→20:57)
[2021-07-29] MEDS: 0.9 % Sodium Chloride Flush 3 ML SYRINGE IVFLUSH ×3 (10:17→20:57)
--- NOTE | 2021-07-29 11:40 | HO.PM.IMPN ---
Subjective Subjective Date of Service: 07/29/21 Interval History: the patient was seen and evaluated this morning Laying in bed, feels comfortable overall Hemoglobin improved to 8.4 No bleeding reported overnight Denies any fever, chills or shortness of breath No reported other overnight events. Review of Systems No fever, chills but reported dizziness has improved No chest pain, palpitation No shortness of breath or coughing No abdominal pain, nausea or vomiting No urinary symptoms No any rash or wounds Physical Exam Vital Signs: Vital Signs: Last Vital Signs Temp 98.2 F 07/29/21 08:00 Pulse 73 07/29/21 08:00 Resp 20 07/29/21 08:00 BP 134/60 07/29/21 08:00 Pulse Ox 95 07/29/21 08:00 BMI result Body Mass Index 23.6 Const: Other: Constitutional : Alert, interactive, not in distress, looks mildly pale Neck : Normal inspection, Supple Cardiovascular : Irregular irregular, S1 S2, no lower extremity edema Respiratory : Good bilateral air entry, no crackles, wheezes or rhonchi Gastrointestinal: soft, lax, Normal bowel sounds, Non tender Skin : Warm, Dry Neurological : Alert & oriented x3, No focal deficit Objective Data Active Medications Acetaminophen (Acetaminophen 325 Mg Tablet) 650 mg PO Q6H PRN PRN Reason: Pain, Mild (Pain Scale 1-3) Atorvastatin Calcium (Atorvastatin Calcium 40 Mg Tablet) 40 mg PO BEDTIME [facility] Last Admin: 07/28/21 20:29 Dose: 40 mg Documented by: DELANEY Benzonatate (Benzonatate 100 Mg Capsule) 100 mg PO TID [facility] Last Admin: 07/29/21 10:16 Dose: 100 mg Documented by: LAVON Bisacodyl (Bisacodyl 5 Mg Tablet.Dr) 10 mg PO ONCE@1547 ONE Stop: 07/29/21 15:48 Guaifenesin (Guaifenesin La 600 Mg Tab.Er.12h) 600 mg PO BID PRN PRN Reason: Cough Last Admin: 07/28/21 20:29 Dose: 600 mg Documented by: DELANEY Nicotine (Nicotine 14 Mg Patch.Td24) 14 mg TRANSDERMA DAILY [facility] Last Admin: 07/29/21 10:15 Dose: 14 mg Documented by: LAVON Patient Own Medication ( Febuxostat 40 Mg) 1 each PO DAILY [facility] Omeprazole (Omeprazole 40 Mg Capsule.Dr) 40 mg PO BID@0630,1630 [facility] Ondansetron HCl (Ondansetron Hcl 4 Mg/2 Ml Vial) 4 mg IVPUSH Q8H PRN PRN Reason: Nausea and Vomiting Pharmacy Consult (Consult Rx Perform Med Rec) 1 each MISCELLANE ONCE PRN PRN Reason: Consult order Polyethylene Glycol/Electrolytes (Peg 3350/Na Sulf,Bicarb,Cl/Kcl 4,000 Ml Soln.Recon) 4,000 ml PO ONCE@1500 ONE Stop: 07/29/21 15:01 Sodium Chloride (0.9 % Sodium Chloride Flush 3 Ml Syringe) 3 ml IVFLUSH QSHIFT [facility] Last Admin: 07/29/21 10:17 Dose: 3 ml Documented by: LAVON Labs CBC & Chem 7: 07/29/21 05:54 07/29/21 05:54 Labs: Laboratory Results - last 24 hr 07/27/21 07/29/21 07/29/21 14:55 05:54 05:54 MCV 97.8 MCH 31.0 MCHC 31.7 RDW 15.4 Plt Count 142 L MPV 10.8 Absolute Nucleated RBC 0.000 Nucleated RBC % (auto) 0.0 PT 14.8 H INR 1.3 H Anion Gap Estim Creat Clear Calc Estimated GFR Random Glucose Calcium Blood Type A Positive Antibody Screen NEGATIVE Crossmatch See Detail 07/29/21 05:54 MCV MCH MCHC RDW Plt Count MPV Absolute Nucleated RBC Nucleated RBC % (auto) PT INR Anion Gap 8 L Estim Creat Clear Calc 66.5 Estimated GFR > 60 Random Glucose 99 Calcium 8.2 L Blood Type Antibody Screen Crossmatch Assessment and Plan (1) Acute on chronic blood loss anemia: Status: Acute (2) Acute upper gastrointestinal bleeding: Status: Acute Plan An 81 years old male with PMH of CAD, HLD, AFib on warfarin, erosive gastritis among others who presents to the hospital the with complain of dizziness and weakness. Symptomatic anemia 2/2 Acute on chronic blood-loss anemia Received 2 FFP, 3 units RBCs from ED Hemoglobin improved to 8.4 GI to do upper and lower endoscopy by tomorrow Change PPI to p.o. Received vitamin K Follow H&H Goal to keep blood level above 8 Cardiac pauses Noted on telemetry, pauses of maximum 3 seconds, asymptomatic Cardiology input appreciated, no intervention needed Coagulopathy. Resolved INR to 1.3 today PT INR daily hold warfarin Chronic afib BB on hold continue digoxin Cardiology to evaluate possible Watchman device placement HFpEF chronic. no acute exacerbation po lasix on hold COPD, chronic no acute exacerbation continue prn albuterol HTN valsartan on hold for now with stable BP follow BP closely DVT Prophylaxis SCD boots Need of hospital stay for acute blood loss anemia symptomatic anemia the patient will need blood transfusion, evaluation of the source of bleeding given high chance of decompensation. Quality Stroke Does the patient have a stroke diagnosis?: No VTE Prior VTE?: No VTE Risk Level:: Medical - moderate - high VTE Device Contraindication: N/A - Device Ordered VTE Drug Contraindication: Treatment Not Indicated
[2021-07-29 12:00] VITALS: BP 143/71; PULSE 87; RESP 20; TEMP 36.9; O2SAT 94
[2021-07-29] MEDS: PEG 3350/Na Sulf,Bicarb,Cl/KCL 4,000 ML SOLN.RECON 4000 ML PO (15:00)
[2021-07-29 15:03] VITALS: BP 149/99; PULSE 93; RESP 20; TEMP 36.3; O2SAT 98
[2021-07-29] MEDS: Omeprazole 40 MG CAPSULE.DR PO (15:15)
[2021-07-29] MEDS: bisacodyL 5 MG TABLET.DR 10 MG PO (15:15)
[2021-07-29 19:18] VITALS: BP 179/80; PULSE 77; RESP 20; TEMP 36.8; O2SAT 98
[2021-07-29] MEDS: Atorvastatin Calcium 40 MG TABLET PO (20:56)
[2021-07-30] VITALS (8 sets, daily range): BP systolic 140–173; BP diastolic 64–91; PULSE 71–96; RESP 17–20; TEMP 36.2–36.9; O2SAT 95–99
[2021-07-30 06:51] LABS: Anion Gap 10 (12-20); Blood Urea Nitrogen 19 mg/dL (9-16); Calcium 8.2 mg/dL (8.4-10.2); Carbon Dioxide 29 mmol/L (22-29); Chloride 108 mmol/L (96-108); Creatinine Clr Calc Pharmacy 78.1; Estimated Glomerular Filt Rate > 60; Glucose Random 91 mg/dL (60-115); Potassium 4.2 mmol/L (3.3-5.1); Sodium 143 mmol/L (135-145)
[2021-07-30 06:53] LABS: INTERNATIONAL NORM RATIO 1.3 (0.9-1.1); Prothrombin Time 14.9 SEC (9.9-13.0)
[2021-07-30 07:06] LABS: Hematocrit 26.5 % (42.0-52.0); Hemoglobin 8.4 g/dl (14.0-18.0); Mean Corpuscular HGB Conc 31.7 g/dl (31.0-36.0); Mean Corpuscular Hemoglobin 31.2 pg (27.0-33.0); Mean Corpuscular Volume 98.5 fL (80.0-98.0); Mean Platelet Volume 11.1 fL (9.4-12.4); Platelet Count 157 X10*3/uL (160-400); Red Blood Count 2.69 X10*6/uL (4.60-5.80); Red Cell Distribution Width 15.2 % (11.0-16.0); White Blood Count 3.9 X10*3/uL (4.8-10.8)
[2021-07-30] MEDS: Omeprazole 40 MG CAPSULE.DR PO (08:35)
[2021-07-30] MEDS: Benzonatate 100 MG CAPSULE PO ×2 (08:35→20:25)
[2021-07-30] MEDS: Nicotine 14 MG PATCH.TD24 TRANSDERMA (08:36)
[2021-07-30] MEDS: 0.9 % Sodium Chloride Flush 3 ML SYRINGE IVFLUSH ×3 (08:37→20:26)
--- NOTE | 2021-07-30 12:21 | HO.PM.IMPN ---
Subjective Subjective Date of Service: 07/30/21 Interval History: the patient was seen and evaluated this morning Laying in bed, feels comfortable overall Hemoglobin stable around 8.4 No bleeding reported overnight Denies any fever, chills or shortness of breath No reported other overnight events. Review of Systems No fever, chills but reported dizziness has improved No chest pain, palpitation No shortness of breath or coughing No abdominal pain, nausea or vomiting No urinary symptoms No any rash or wounds Physical Exam Vital Signs: Vital Signs: Last Vital Signs Temp 98.5 F 07/30/21 12:00 Pulse 84 07/30/21 12:00 Resp 18 07/30/21 12:00 BP 146/73 H 07/30/21 12:00 Pulse Ox 97 07/30/21 12:00 BMI result Body Mass Index 23.6 Const: Other: Constitutional : Alert, interactive, not in distress, looks mildly pale Neck : Normal inspection, Supple Cardiovascular : Irregular irregular, S1 S2, no lower extremity edema Respiratory : Good bilateral air entry, no crackles, wheezes or rhonchi Gastrointestinal: soft, lax, Normal bowel sounds, Non tender Skin : Warm, Dry Neurological : Alert & oriented x3, No focal deficit Objective Data Active Medications Acetaminophen (Acetaminophen 325 Mg Tablet) 650 mg PO Q6H PRN PRN Reason: Pain, Mild (Pain Scale 1-3) Atorvastatin Calcium (Atorvastatin Calcium 40 Mg Tablet) 40 mg PO BEDTIME [facility] Last Admin: 07/29/21 20:56 Dose: 40 mg Documented by: HAYLIE Benzonatate (Benzonatate 100 Mg Capsule) 100 mg PO TID [facility] Last Admin: 07/30/21 08:35 Dose: 100 mg Documented by: BLANCA Guaifenesin (Guaifenesin La 600 Mg Tab.Er.12h) 600 mg PO BID PRN PRN Reason: Cough Last Admin: 07/28/21 20:29 Dose: 600 mg Documented by: ANTYASMANI Nicotine (Nicotine 14 Mg Patch.Td24) 14 mg TRANSDERMA DAILY [facility] Last Admin: 07/30/21 08:36 Dose: 14 mg Documented by: BLANCA Patient Own Medication ( Febuxostat 40 Mg) 1 each PO DAILY [facility] Last Admin: 07/30/21 08:35 Dose: 1 each Documented by: BLANCA Omeprazole (Omeprazole 40 Mg Capsule.) 40 mg PO BID@0630,1630 [facility] Last Admin: 07/30/21 08:35 Dose: 40 mg Documented by: BLANCA Ondansetron HCl (Ondansetron Hcl 4 Mg/2 Ml Vial) 4 mg IVPUSH Q8H PRN PRN Reason: Nausea and Vomiting Pharmacy Consult (Consult Rx Perform Med Rec) 1 each MISCELLANE ONCE PRN PRN Reason: Consult order Sodium Chloride (0.9 % Sodium Chloride Flush 3 Ml Syringe) 3 ml IVFLUSH QSHIFT [facility] Last Admin: 07/30/21 08:37 Dose: 3 ml Documented by: BLANCA Labs CBC & Chem 7: 07/30/21 06:06 07/30/21 06:06 Labs: Laboratory Results - last 24 hr 07/30/21 07/30/21 07/30/21 06:06 06:06 06:06 MCV 98.5 H MCH 31.2 MCHC 31.7 RDW 15.2 Plt Count 157 L MPV 11.1 Absolute Nucleated RBC 0.000 Nucleated RBC % (auto) 0.0 PT 14.9 H INR 1.3 H Anion Gap 10 L Estim Creat Clear Calc 78.1 Estimated GFR > 60 Random Glucose 91 Calcium 8.2 L Assessment and Plan (1) Symptomatic anemia: Status: Acute (2) Acute on chronic blood loss anemia: Status: Acute Plan An 81 years old male with PMH of CAD, HLD, AFib on warfarin, erosive gastritis among others who presents to the hospital the with complain of dizziness and weakness. Symptomatic anemia 2/2 Acute on chronic blood-loss anemia Received 2 FFP, 3 units RBCs from ED Hemoglobin a stable 8.4 GI to do upper and lower endoscopy today Change PPI to p.o. Received vitamin K Follow H&H Goal to keep blood level above 8 Cardiac pauses Noted on telemetry, pauses of maximum 3 seconds, asymptomatic Cardiology input appreciated, discontinue Digoxin Coagulopathy. Resolved INR to 1.3 today PT INR daily hold warfarin Chronic afib BB on hold continue digoxin Cardiology to evaluate possible Watchman device placement HFpEF chronic. no acute exacerbation po lasix on hold COPD, chronic no acute exacerbation continue prn albuterol HTN valsartan on hold for now with stable BP follow BP closely DVT Prophylaxis SCD boots Need of hospital stay for acute blood loss anemia symptomatic anemia the patient will need blood transfusion, evaluation of the source of bleeding given high chance of decompensation. Quality Stroke Does the patient have a stroke diagnosis?: No VTE Prior VTE?: No VTE Risk Level:: Medical - moderate - high VTE Device Contraindication: N/A - Device Ordered VTE Drug Contraindication: Treatment Not Indicated
--- NOTE | 2021-07-30 14:30 | MHC.CM.PN ---
per rounds pt to have endoscopy dc expected to be svetlana
--- NOTE | 2021-07-30 17:59 | MHC.SHP ---
Pre-Procedural Eval Section A Date of Service: 07/31/21 The patient is an INPATIENT: Yes The History & Physical has been completed within 30 days and I have reviewed it.: Yes Section B Chief Complaint: Afib, 3 sec pause, GI bleed Allergies: Allergies Allergy/AdvReac Type Severity Reaction Status Date / Time No Known Allergies Allergy Unknown UNKNOWN Verified 07/20/21 10:16 [NO KNOWN ALLERGIES] Plan I have reviewed the history and physical and performed a pertinent physical examination on my patient. No changes have occurred unless specified.
--- NOTE | 2021-07-30 18:00 | PM.EVENT ---
Event Note Date of Service: 07/30/21 Event Note: GI-Due to scheduling constraints in the OR today the patient's EGD and Colonoscopy have been postponed until 7:30 AM on 07/31/[address] Gr. I did advise the patient of this and he understood. He can have clear liquids this evening and then NPO again. Thanks
--- NOTE | 2021-07-30 18:54 | PC.NURSE ---
1800 BP 152/91D [facility] notified No new orders at this time.
[2021-07-30] MEDS: Atorvastatin Calcium 40 MG TABLET PO (20:25)
[2021-07-31 03:52] VITALS: BP 148/69; PULSE 74; RESP 20; TEMP 36.4; O2SAT 93
[2021-07-31 06:48] LABS: Hematocrit 26.7 % (42.0-52.0); Hemoglobin 8.5 g/dl (14.0-18.0); Mean Corpuscular HGB Conc 31.8 g/dl (31.0-36.0); Mean Corpuscular Volume 97.4 fL (80.0-98.0); Mean Platelet Volume 10.5 fL (9.4-12.4); Platelet Count 153 X10*3/uL (160-400); Red Blood Count 2.74 X10*6/uL (4.60-5.80); Red Cell Distribution Width 15.1 % (11.0-16.0); White Blood Count 3.6 X10*3/uL (4.8-10.8)
[2021-07-31 07:01] LABS: INTERNATIONAL NORM RATIO 1.3 (0.9-1.1); Prothrombin Time 14.9 SEC (9.9-13.0)
--- NOTE | 2021-07-31 07:09 | HO.ANESPROP2 ---
[facility] Active Problems Active Problems: All Active Problems (Updated 07/27/21 @ 16:01 by Marcos Pemberton MD) Symptomatic anemia (Acute) Acute on chronic blood loss anemia (Acute) Dizziness (Acute) Acute blood loss anemia (Acute) Acute upper gastrointestinal bleeding (Acute) Knee effusion, left (Acute) Heart failure with reduced ejection fraction (Acute) Cancer of upper lobe of right lung (Acute ~2014) Solitary pulmonary nodule (Acute) Mediastinal lymphadenopathy (Acute) COPD (chronic obstructive pulmonary disease) (Acute) Smoker (Acute) Cardiomyopathy (Acute) CAD (coronary artery disease) (Acute) Current use of anticoagulant therapy (Acute) Chronic atrial fibrillation (Acute) Benign essential hypertension (Acute) HLD (hyperlipidemia) (Acute) PAD (peripheral artery disease) (Acute) Pure hypercholesterolemia (Acute) Bilateral lower extremity edema (Acute) Postural dizziness with near syncope (Acute) Gout (Acute) Shoulder pain, acute (Acute) Chest wall discomfort (Acute) Neuropathy (Acute) Vitamin D deficiency (Acute) Osteoarthritis (Acute) Osteoarthritis of knees, bilateral (Acute) Lumbar degenerative disc disease (Acute) Back pain (Acute) Past Medical History Medical History Back pain Benign essential hypertension Bilateral lower extremity edema CAD (coronary artery disease) Cancer of upper lobe of right lung (~2013) Chronic atrial fibrillation Congestive heart failure COPD (chronic obstructive pulmonary disease) Gout Heart failure with reduced ejection fraction HLD (hyperlipidemia) Lumbar degenerative disc disease Neuropathy Osteoarthritis Osteoarthritis of knees, bilateral PAD (peripheral artery disease) Physical deconditioning Smoker Type 2 diabetes mellitus with other diabetic kidney complication Vitamin D deficiency Wears dentures Functional capacity: independent ambulation Family History Family History Mother No problems noted. Family history of problems with anesthesia: No Surgical History Surgical History History of angioplasty (~12/2020) History of back surgery History of brain surgery (~2003) History of bronchoscopy (~2020) History of cardiac cath (~02/2016) History of colonoscopy (~01/2001) History of lung surgery (~07/2013) History of lung surgery (~2019) History of partial colectomy (~01/2001) History of right knee surgery (~09/2005) History of thoracentesis (~09/2019) History of Problems with Anesthesia: No Social History Social History Household Members: None [facility] Are you a primary residential care officer to a significant other at home: No Do you presently have visiting nurse or other home services: No Alcohol intake: never Patient Tobacco Use Status: Current everyday Tobacco user Tobacco use type: Cigarette Cigarette Packs Per Day: 0.5 Cigarettes Per Day: 10.0 Years Smoked: 50 Second Hand Smoke Exposure: No Advance Directives Date on File: 11/29/20 service: No Current occupational status: retired [employer] Allergies Allergy/AdvReac Type Severity Reaction Status Date / Time No Known Allergies Allergy Unknown UNKNOWN Verified 07/20/21 10:16 [NO KNOWN ALLERGIES] Active Medications: Current Medications Acetaminophen (Acetaminophen 325 Mg Tablet) 650 mg PO Q6H PRN PRN Reason: Pain, Mild (Pain Scale 1-3) Atorvastatin Calcium (Atorvastatin Calcium 40 Mg Tablet) 40 mg PO BEDTIME [facility] Last Admin: 07/30/21 20:25 Dose: 40 mg Documented by: Benzonatate (Benzonatate 100 Mg Capsule) 100 mg PO TID [facility] Last Admin: 07/30/21 20:25 Dose: 100 mg Documented by: Guaifenesin (Guaifenesin La 600 Mg Tab.Er.12h) 600 mg PO BID PRN PRN Reason: Cough Last Admin: 07/28/21 20:29 Dose: 600 mg Documented by: Nicotine (Nicotine 14 Mg Patch.Td24) 14 mg TRANSDERMA DAILY [facility] Last Admin: 07/30/21 08:36 Dose: 14 mg Documented by: Patient Own Medication ( Febuxostat 40 Mg) 1 each PO DAILY [facility] Last Admin: 07/30/21 08:35 Dose: 1 each Documented by: Omeprazole (Omeprazole 40 Mg Capsule.) 40 mg PO BID@0630,1630 [facility] Last Admin: 07/31/21 05:02 Dose: Not Given Documented by: Ondansetron HCl (Ondansetron Hcl 4 Mg/2 Ml Vial) 4 mg IVPUSH Q8H PRN PRN Reason: Nausea and Vomiting Pharmacy Consult (Consult Rx Perform Med Rec) 1 each MISCELLANE ONCE PRN PRN Reason: Consult order Sodium Chloride (0.9 % Sodium Chloride Flush 3 Ml Syringe) 3 ml IVFLUSH [facility] Last Admin: 07/30/21 20:26 Dose: 3 ml Documented by: Home Medications Medication Instructions Recorded Confirmed Last Taken Type calcium carbonate 600 mg-vitamin 1 tab PO DAILY 07/10/20 07/27/21 06/20/21 History D3 5 mcg (200 unit) tablet multivitamin 1 tab PO DAILY 07/10/20 07/27/21 06/20/21 History nicotine 14 mg/24 hr daily 1 patch TRANSDERMAL DAILY 07/10/20 07/27/21 06/19/21 History transdermal patch vitamins A,C,R-xsyf-idbbou 14,320 1 cap PO DAILY 07/10/20 07/27/21 06/20/21 History unit-226 mg-200 unit capsule (PreserVision AREDS) acetaminophen 650 mg 650 mg PO Q12H PRN 11/28/20 07/27/21 11/27/20 History tablet,extended release aspirin 81 mg chewable tablet 81 mg PO DAILY@1500 12/29/20 07/27/21 06/19/21 History atorvastatin 40 mg tablet 40 mg PO BEDTIME 06/20/21 07/27/21 06/19/21 History warfarin 1 mg tablet 1 mg PO SUWEFR tab 07/20/21 07/27/21 Unknown History warfarin 1 mg tablet 2 mg PO MOTUTHSA tab 07/20/21 07/27/21 Unknown History Exam Exam Date and Time: July 31, 2021 0709 Height,Weight and Vital Signs: Height 6 ft Weight 79.2 kg Last Vital Signs Temp 97.6 F 07/31/21 03:52 Pulse 74 07/31/21 03:52 Resp 20 07/31/21 03:52 BP 148/69 H 07/31/21 03:52 Pulse Ox 93 07/31/21 03:52 Pertinent Lab Results Pertinent Lab Results: Laboratory Tests 07/27/21 07/27/21 07/27/21 13:51 13:51 13:51 WBC 4.3 L RBC 2.01 L D Hgb 6.2 L* D Hct 20.3 L* D MCV 101.0 H MCH 30.8 MCHC 30.5 L RDW 15.9 Plt Count 199 MPV 10.5 Immature Gran % (Auto) 0.2 Neut % (Auto) 51.1 Lymph % (Auto) 28.4 [place] % (Auto) 13.3 H Eos % (Auto) 5.8 H Baso % (Auto) 1.2 Lymph # (Auto) 1.2 [place] # (Auto) 0.6 Eos # (Auto) 0.3 Baso # (Auto) 0.1 Abs Immat Gran (auto) 0.01 Absolute Neuts (auto) 2.2 Absolute Nucleated RBC 0.000 Nucleated RBC % (auto) 0.0 PT INR Sodium 144 Potassium 4.7 Chloride 105 Carbon Dioxide 34 H Anion Gap 10 L BUN 56 H Creatinine 1.26 Estim Creat Clear Calc 49.6 Estimated GFR 55 Random Glucose 88 Calcium 8.5 D Magnesium 2.6 Total Bilirubin 0.5 Direct Bilirubin 0.2 AST 16 ALT 15 Alkaline Phosphatase 77 Troponin I High Sens Total Protein 5.3 L Albumin 3.2 L TSH Stool Occult Blood Digoxin COVID-19 (DAMASO) Negative COVID-19 Clin Com See Note Blood Type Antibody Screen Crossmatch 07/27/21 07/27/21 07/27/21 13:51 13:51 13:51 WBC RBC Hgb Hct MCV MCH MCHC RDW Plt Count MPV Immature Gran % (Auto) Neut % (Auto) Lymph % (Auto) [place] % (Auto) Eos % (Auto) Baso % (Auto) Lymph # (Auto) [place] # (Auto) Eos # (Auto) Baso # (Auto) Abs Immat Gran (auto) Absolute Neuts (auto) Absolute Nucleated RBC Nucleated RBC % (auto) PT 35.7 H INR 3.1 H Sodium Potassium Chloride Carbon Dioxide Anion Gap BUN Creatinine Estim Creat Clear Calc Estimated GFR Random Glucose Calcium Magnesium Total Bilirubin Direct Bilirubin AST ALT Alkaline Phosphatase Troponin I High Sens 12.1 Total Protein Albumin TSH Stool Occult Blood Digoxin 1.6 COVID-19 (DAMASO) COVID-19 Clin Com Blood Type Antibody Screen Crossmatch 07/27/21 07/27/21 07/27/21 13:51 14:55 22:49 WBC RBC Hgb Hct MCV MCH MCHC RDW Plt Count MPV Immature Gran % (Auto) Neut % (Auto) Lymph % (Auto) [place] % (Auto) Eos % (Auto) Baso % (Auto) Lymph # (Auto) [place] # (Auto) Eos # (Auto) Baso # (Auto) Abs Immat Gran (auto) Absolute Neuts (auto) Absolute Nucleated RBC Nucleated RBC % (auto) PT INR Sodium Potassium Chloride Carbon Dioxide Anion Gap BUN Creatinine Estim Creat Clear Calc Estimated GFR Random Glucose Calcium Magnesium Total Bilirubin Direct Bilirubin AST ALT Alkaline Phosphatase Troponin I High Sens Total Protein Albumin TSH 1.03 Stool Occult Blood POSITIVE Digoxin COVID-19 ([facility]AMASO) COVID-AppCard Com Blood Type A Positive Antibody Screen NEGATIVE Crossmatch See Detail 07/28/21 07/28/21 07/28/21 06:19 06:19 06:19 WBC 5.1 RBC 2.46 L D Hgb 7.6 L D Hct 24.1 L MCV 98.0 MCH 30.9 MCHC 31.5 RDW 15.9 Plt Count 162 MPV 10.8 Immature Gran % (Auto) Neut % (Auto) Lymph % (Auto) [place] % (Auto) Eos % (Auto) Baso % (Auto) Lymph # (Auto) [place] # (Auto) Eos # (Auto) Baso # (Auto) Abs Immat Gran (auto) Absolute Neuts (auto) Absolute Nucleated RBC 0.000 Nucleated RBC % (auto) 0.0 PT 16.0 H INR 1.4 H Sodium 144 Potassium 4.7 Chloride 108 Carbon Dioxide 30 H Anion Gap 11 L BUN 49 H Creatinine 1.09 Estim Creat Clear Calc 57.3 Estimated GFR > 60 Random Glucose 91 Calcium 8.4 Magnesium Total Bilirubin Direct Bilirubin AST ALT Alkaline Phosphatase Troponin I High Sens Total Protein Albumin TSH Stool Occult Blood Digoxin COVID-19 ([facility]ASO) COVID-AppCard Com Blood Type Antibody Screen Crossmatch 07/29/21 07/29/21 07/29/21 05:54 05:54 05:54 WBC 4.9 RBC 2.71 L Hgb 8.4 L Hct 26.5 L MCV 97.8 MCH 31.0 MCHC 31.7 RDW 15.4 Plt Count 142 L MPV 10.8 Immature Gran % (Auto) Neut % (Auto) Lymph % (Auto) [place] % (Auto) Eos % (Auto) Baso % (Auto) Lymph # (Auto) [place] # (Auto) Eos # (Auto) Baso # (Auto) Abs Immat Gran (auto) Absolute Neuts (auto) Absolute Nucleated RBC 0.000 Nucleated RBC % (auto) 0.0 PT 14.8 H INR 1.3 H Sodium 143 Potassium 4.3 Chloride 108 Carbon Dioxide 31 H Anion Gap 8 L BUN 38 H Creatinine 0.94 Estim Creat Clear Calc 66.5 Estimated GFR > 60 Random Glucose 99 Calcium 8.2 L Magnesium Total Bilirubin Direct Bilirubin AST ALT Alkaline Phosphatase Troponin I High Sens Total Protein Albumin TSH Stool Occult Blood Digoxin COVID-19 ([facility]ASO) COVID-19 [facility] Blood Type Antibody Screen Crossmatch 07/30/21 07/30/21 07/30/21 06:06 06:06 06:06 WBC 3.9 L RBC 2.69 L Hgb 8.4 L Hct 26.5 L MCV 98.5 H MCH 31.2 MCHC 31.7 RDW 15.2 Plt Count 157 L MPV 11.1 Immature Gran % (Auto) Neut % (Auto) Lymph % (Auto) [place] % (Auto) Eos % (Auto) Baso % (Auto) Lymph # (Auto) [place] # (Auto) Eos # (Auto) Baso # (Auto) Abs Immat Gran (auto) Absolute Neuts (auto) Absolute Nucleated RBC 0.000 Nucleated RBC % (auto) 0.0 PT 14.9 H INR 1.3 H Sodium 143 Potassium 4.2 Chloride 108 Carbon Dioxide 29 Anion Gap 10 L BUN 19 H Creatinine 0.80 Estim Creat Clear Calc 78.1 Estimated GFR > 60 Random Glucose 91 Calcium 8.2 L Magnesium Total Bilirubin Direct Bilirubin AST ALT Alkaline Phosphatase Troponin I High Sens Total Protein Albumin TSH Stool Occult Blood Digoxin COVID-19 ([facility]ASO) COVID-19 [facility] Blood Type Antibody Screen Crossmatch 07/31/21 07/31/21 06:06 06:06 WBC 3.6 L RBC 2.74 L Hgb 8.5 L Hct 26.7 L MCV 97.4 MCH 31.0 MCHC 31.8 RDW 15.1 Plt Count 153 L MPV 10.5 Immature Gran % (Auto) Neut % (Auto) Lymph % (Auto) [place] % (Auto) Eos % (Auto) Baso % (Auto) Lymph # (Auto) [place] # (Auto) Eos # (Auto) Baso # (Auto) Abs Immat Gran (auto) Absolute Neuts (auto) Absolute Nucleated RBC 0.000 Nucleated RBC % (auto) 0.0 PT 14.9 H INR 1.3 H Sodium Potassium Chloride Carbon Dioxide Anion Gap BUN Creatinine Estim Creat Clear Calc Estimated GFR Random Glucose Calcium Magnesium Total Bilirubin Direct Bilirubin AST ALT Alkaline Phosphatase Troponin I High Sens Total Protein Albumin TSH Stool Occult Blood Digoxin COVID-19 (DAMASO) COVID-19 Clin Com Blood Type Antibody Screen Crossmatch Airway Heart: irreg. Lungs: RUL decreased sounds Assessment and Plan Final Anesthetic Review Family History of Problems with Anesthesia: No History of Problems with Anesthesia: No ASA Class: III Final Preanesthetic Review: Meds/Allgs Chart Reviewed, Consent Obtained/Reviewed and Anes Risks/Benef Reviewed Patient Risk: Intermediate Procedure Risk: Low Anesthetic Plan Anesthetic Plan: MAC: Disposition: Standard PACU
[2021-07-31] MEDS: Sodium Phosphate,Mono-Dibasic 133 ML ENEMA PR (07:15)
[2021-07-31 07:21] VITALS: BP 149/78; PULSE 79; RESP 18; TEMP 37; O2SAT 95
--- NOTE | 2021-07-31 08:21 | PM.EVENT ---
Event Note Date of Service: 07/31/21 Event Note: GI EGD and colonoscopy are basically normal no source for blood loss identified. Rec: Advance diet restart anticoagulation follow hct carefully outpatient capsule endoscopy
[2021-07-31 08:27] VITALS: BP 96/67; PULSE 99; RESP 16; TEMP 36.8; O2SAT 99
[2021-07-31 08:40] VITALS: BP 105/60; PULSE 86; RESP 16; TEMP 36.8; O2SAT 97
--- NOTE | 2021-07-31 08:51 | OP_ITS ---
SURGEON: Jared Gr MD INDICATIONS: Anemia and Hemoccult-positive stools. PREOPERATIVE DIAGNOSIS: POSTOPERATIVE DIAGNOSIS: PROCEDURE PERFORMED: 1. Upper endoscopy with biopsy. 2. Colonoscopy to the terminal ileum. ESTIMATED BLOOD LOSS: COMPLICATIONS: ANESTHESIA: Monitored anesthesia care. ASSISTANTS: SPECIMENS: DESCRIPTION OF PROCEDURE: History and physical performed. The risks and benefits of the procedure were explained to the patient. An informed consent was obtained, and the patient was placed in the left lateral decubitus position. A digital rectal exam was performed prior to the colonoscopy. The Olympus video gastroscope was introduced into the esophagus, stomach, and duodenum. Examination was performed, and the scope was removed. He tolerated the procedure well and was repositioned for colonoscopy. Digital rectal exam was performed and was found to be normal. The Olympus pediatric video colonoscope was introduced into the rectum and advanced to the cecum without difficulty. The cecum was identified by transillumination, palpation, and identification of the ileocecal valve. Examination was performed. The scope was removed. He tolerated both procedures well and was taken to recovery area in stable condition. FINDINGS: Upper endoscopy: 1. Esophagus: The esophagus was normal. 2. Stomach: The stomach showed no evidence of masses, ulcers, or polyps. 3. Duodenum: The duodenum appeared normal. 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 These appeared unchanged from prior with no evidence of ongoing GI bleeding. Colonoscopy: The terminal ileum was examined for approximately 15 cm and appeared normal. The visualized colonic mucosa was normal. There was a large amount of liquid stool, which was washed and suctioned. This limited the examination for detection of small polyps. No bleeding source was identified. The anastomosis in the sigmoid was not clearly identified because of the prep. No bleeding source was seen in the entire colon. Retroflexed examination was normal. IMPRESSION: 1. Normal upper endoscopy. 2. Limited colonoscopy without any source for bleeding identified. RECOMMENDATION: 1. Advanced diet. 2. Restart anticoagulation. 3. Outpatient capsule endoscopy. MD SVEN Jerez/SADAF / [id number]
[2021-07-31 08:55] VITALS: BP 144/75; PULSE 88; RESP 16; TEMP 36.8; O2SAT 97
[2021-07-31] MEDS: Benzonatate 100 MG CAPSULE PO (10:07)
[2021-07-31] MEDS: Nicotine 14 MG PATCH.TD24 TRANSDERMA (10:09)
[2021-07-31] MEDS: 0.9 % Sodium Chloride Flush 3 ML SYRINGE IVFLUSH (10:09)
--- NOTE | 2021-07-31 11:30 | P.DS_ITS ---
DS: Providers Provider Date of Service: 07/31/21 Date of admission: 07/27/21 16:10 Primary care physician: Ben Durham MD Consults: 07/27/21 14:55 Consult to Gastroenterology Routine Consulting Provider: Sathish Whitehead Reason for consultation: UGIB Has provider been notified: Yes 07/27/21 16:10 Consult to Gastroenterology Routine Consulting Provider: Jared Gr Reason for consultation: blood loss anemia , GIB 07/27/21 22:37 Consult to Cardiology Routine Consulting Provider: Nick Ramesh Reason for consultation: 3-s pause Has provider been notified: No DS: Diagnosis Discharge Diagnosis (1) Symptomatic anemia: Status: Acute (2) Acute on chronic blood loss anemia: Status: Acute (3) Acute upper gastrointestinal bleeding: Status: Acute DS: Summary Hospital Course Hospital Course: Admission note HPI An 81 years old male with PMH of CAD, HLD, AFib on warfarin, erosive gastritis among others who presents to the hospital the with complain of dizziness and weakness.? The patient was recently admitted to the hospital for upper GI bleed and found to have erosive gastritis treated with PPI with fair response.? For the last few days he has been complaining of worsening weakness and noticed dizziness upon moving and standing up.? A report dark stools.? In the emergency today he was found to have acute on chronic blood-loss anemia with symptomatic anemia as hemoglobin dropped to 6.2 requiring blood transfusion the emergency. He will be admitted for further evaluation and treatment. Hospital course The patient was admitted to the hospital for evaluation of Symptomatic anemia 2/2 Acute on chronic blood-loss anemia with hemoglobin of level 6.2 at time of admission. Received 2 FFP, 3 units RBCs at home with vitamin K. Started on IV pantoprazole admitted to the hospital. Hemoglobin improved to 8.4 L remained stable around the number. Evaluated by Gastroenterology who did upper and lower endoscopy that did not show any source of bleeding recommending outpatient follow-up for capsule endoscopy and restarting his warfarin. Noted to have episodes of pauses on telemetry. maximum 3 seconds, asymptomatic. Evaluated by?Cardiology who recommended to discontinue Digoxin. Heart rate remained in 70s after that. INR of 3.1 at time of presentation. Received vitamin K. GI and cardiology recommended to restart his warfarin home does and to consider Watchman procedure as outpatient so he can be taken of the anticoagulation. He is supposed to follow up with Dr. Hernández in August and this can be discussed at that point. Stop digoxin Restart warfarin home dose To check blood level on weekly basis To follow with Dr. Hernández in the office to arrange for Watchman procedure To follow-up with Dr. Whitehead office for capsule endoscopy study Time Spent with Patient Time attestation: Total time spent providing and/or coordinating discharge services: Discharge coordination time: Greater than 30 minutes Quality: Stroke Does the patient have a stroke diagnosis?: No Physical Exam Vital Signs: Vital Signs: Last Vital Signs Temp 98.3 F 07/31/21 08:55 Pulse 88 07/31/21 08:55 Resp 16 07/31/21 08:55 BP 144/75 H 07/31/21 08:55 Pulse Ox 97 07/31/21 08:55 BMI result Body Mass Index 23.6 Const: Other: Constitutional : Alert, interactive, not in distress Neck : Normal inspection, Supple Cardiovascular : Irregular irregular, S1 S2, no lower extremity edema Respiratory : Good bilateral air entry, no crackles, wheezes or rhonchi Gastrointestinal: soft, lax, Normal bowel sounds, Non tender Skin : Warm, Dry Neurological : Alert & oriented x3, No focal deficit DS: Data Data Completed and Pending Completed studies during hospitalization [Text1]: Procedures Excision of Duodenum, Via Natural or Artificial Opening Endoscopic, Diagnostic (06/20/21) Excision of Stomach, Pylorus, Via Natural or Artificial Opening Endoscopic, Diagnostic (06/20/21) Transfusion of Nonautologous Red Blood Cells into Peripheral Vein, Percutaneous Approach (06/20/21) Labs on day of discharge: Laboratory Results - last 24 hr 07/31/21 07/31/21 06:06 06:06 WBC 3.6 L RBC 2.74 L Hgb 8.5 L Hct 26.7 L MCV 97.4 MCH 31.0 MCHC 31.8 RDW 15.1 Plt Count 153 L MPV 10.5 Absolute Nucleated RBC 0.000 Nucleated RBC % (auto) 0.0 PT 14.9 H INR 1.3 H Discharge Plan Discharge Patient Disposition: Home Health Service Discharge Diagnosis: Acute blood loss anemia Referrals: Ben Durham MD [Primary Care Provider] - 1 Week Discharge Medications: Continued aspirin 81 mg tablet,chewable 81 mg PO DAILY@1500 0RF folic acid 1 mg tablet 1 mg PO DAILY Qty: 90 1RF potassium chloride 20 mEq tablet,ER particles/crystals 20 meq PO DAILY Qty: 90 2RF metoprolol succinate 100 mg tablet extended release 24 hr 100 mg PO DAILY 60 Days Qty: 60 3RF febuxostat 40 mg tablet 40 mg PO DAILY Qty: 30 5RF furosemide 40 mg tablet 40 mg PO DAILY Qty: 60 0RF multivitamin Tablet 1 tab PO DAILY 0RF nicotine 14 mg/24 hr Patch 24 Hour 1 patch TRANSDERMAL DAILY 0RF calcium carbonate-vitamin D3 600 mg(1,500mg) -200 unit Tablet 1 tab PO DAILY 0RF PreserVision AREDS 14,320-226-200 [id number] Capsule 1 cap PO DAILY 0RF acetaminophen 650 mg Tablet Extended Release 650 mg PO Q12H PRN (Reason: Pain) 0RF albuterol sulfate [Ventolin HFA] 90 mcg/actuation HFA aerosol inhaler 2 puff inhalation Q6H PRN (Reason: shortness of breath or wheezing) Qty: 6.7 0RF atorvastatin 40 mg tablet 40 mg PO BEDTIME 0RF warfarin 1 mg tablet 1 mg PO SUWEFR 0RF Protocol: Dose Management Condition: Friday (Week One) Dose/Route: 1 mg Instruction: 1 x 1 mg tablet Condition: Friday Dose/Route: 2 mg Instruction: 2 x 1 mg tablets Condition: Friday Dose/Route: 2 mg Instruction: 2 x 1 mg tablets Condition: Friday Dose/Route: 1 mg Instruction: 1 x 1 mg tablet Condition: Dose/Route: 2 mg Instruction: 2 x 1 mg tablets Condition: Friday Dose/Route: 1 mg Instruction: 1 x 1 mg tablet Condition: Friday Dose/Route: 2 mg Instruction: 2 x 1 mg tablets Condition: Friday (Week Two) Dose/Route: 1 mg Instruction: 1 x 1 mg tablet Condition: Friday Dose/Route: 2 mg Instruction: 2 x 1 mg tablets Condition: Friday Dose/Route: 2 mg Instruction: 2 x 1 mg tablets Condition: Friday Dose/Route: 1 mg Instruction: 1 x 1 mg tablet Condition: Dose/Route: 2 mg Instruction: 2 x 1 mg tablets Condition: Friday Dose/Route: 1 mg Instruction: 1 x 1 mg tablet Condition: Friday Dose/Route: 2 mg Instruction: 2 x 1 mg tablets Protocol Text: Adjustment Start Date: Friday07/20/21 INR Value: 2.5 INR Date: 07/20/21 Recheck Date: 08/10/21 Additional Instructions: CONT PREV DOSING CALL WITH ANY MEDICATION CHANGES warfarin 1 mg tablet 2 mg PO MOTUTHSA 0RF Protocol: Dose Management Condition: Friday (Week One) Dose/Route: 1 mg Instruction: 1 x 1 mg tablet Condition: Friday Dose/Route: 2 mg Instruction: 2 x 1 mg tablets Condition: Friday Dose/Route: 2 mg Instruction: 2 x 1 mg tablets Condition: Friday Dose/Route: 1 mg Instruction: 1 x 1 mg tablet Condition: Dose/Route: 2 mg Instruction: 2 x 1 mg tablets Condition: Friday Dose/Route: 1 mg Instruction: 1 x 1 mg tablet Condition: Friday Dose/Route: 2 mg Instruction: 2 x 1 mg tablets Condition: Friday (Week Two) Dose/Route: 1 mg Instruction: 1 x 1 mg tablet Condition: Friday Dose/Route: 2 mg Instruction: 2 x 1 mg tablets Condition: Friday Dose/Route: 2 mg Instruction: 2 x 1 mg tablets Condition: Friday Dose/Route: 1 mg Instruction: 1 x 1 mg tablet Condition: Dose/Route: 2 mg Instruction: 2 x 1 mg tablets Condition: Friday Dose/Route: 1 mg Instruction: 1 x 1 mg tablet Condition: Friday Dose/Route: 2 mg Instruction: 2 x 1 mg tablets Protocol Text: Adjustment Start Date: Friday07/20/21 INR Value: 2.5 INR Date: 07/20/21 Recheck Date: 08/10/21 Additional Instructions: CONT PREV DOSING CALL WITH ANY MEDICATION CHANGES Rx Instructions: 2 mg 4 DAYS A WEEK valsartan [Diovan] 40 mg tablet 40 mg PO DAILY 90 Days Qty: 90 3RF metoprolol succinate 25 mg tablet extended release 24 hr 25 mg PO BEDTIME 90 Days Qty: 90 3RF Discontinued digoxin 250 mcg (0.25 mg) tablet 250 mcg PO DAILY 90 Days Qty: 90 3RF Discharge Orders: Discharge Order (Routine); Ordered 07/31/21 Ordered By: Marcos Pemberton Diet: advance to usual diet Activity on Discharge: As tolerated Stand Alone Forms: Patient Portal Discharge page Other Ambulatory Orders: Complete Blood Count no Diff (QWEEK) Timeframe: [id number] Facility: [facility] - Location: Laboratory Ordered By: Marcos Pemberton Complete Blood Count no Diff (QWEEK) Timeframe: [id number] Facility: [facility] - Location: Laboratory Ordered By: Marcos Ma Complete Blood Count no Diff (QWEEK) Timeframe: [id number] Facility: [facility] - Location: Laboratory Ordered By: Marcos Ma Complete Blood Count no Diff (QWEEK) Timeframe: [id number] Facility: [facility] - Location: Laboratory Ordered By: Marcos Pemberton Care Plan Goals: Read below Health Concerns: Read below Plan of Treatment: Read below Assessment: You were admitted to the hospital for evaluation if symptomatic anemia as a result of gastrointestinal loss. You were transfused total of 3 units of blood to bring your hemoglobin level up to 8.5. Evaluated by Gastroenterology who did upper and lower endoscopy with no clear source of bleeding identified. You were noticed to have episodes of slow heart rate. Evaluated by Cardiology who recommended discontinuation of digoxin. Stop digoxin Restart warfarin home dose To check blood level on weekly basis To follow with Dr. Hernández in the office to arrange for Watchman procedure To follow-up with Dr. Whitehead office for capsule endoscopy study Please come back to the hospital for any episodes of bleeding, difficulty breathing.
[2021-07-31 11:51] VITALS: BP 114/63; PULSE 97; RESP 17; TEMP 36.4; O2SAT 97
[2021-07-31] MEDS: Metoprolol Succinate ER 100 MG TAB.ER.24H PO (12:12)
--- NOTE | 2021-07-31 12:35 | MHC.CM.PN ---
pt home with leonor
[2021-07-31] MEDS: Warfarin Sodium 3 MG TABLET PO (12:56)
--- NOTE | 2021-07-31 13:13 | W.MHC.F2F ---
Service Date Service Date: 07/31/21 Encounter Date of encounter: 07/31/21 Reasons for Services Signs and symptoms assessed: Physical deconditioning Acute blood loss anemia Reason for shelter: monitoring of PT/INR Reason for physical therapy: home safety and mobility Homebound: Leaving the home is medically contraindicated at this time without the asist of a device and/or another person due th the listed conditions above and below. Reason homebound: unsteady gait / fall risk Certification: Based on the above findings, I certify that this patient is confined to the home and needs intermittent shelter care, physical therapy and/or speech therapy, or continues to need occupational therapy. The patient is under my care, and I have initiated the establishment of the plan of care. The patient will be followed by a physician who will periodically review the plan of care.
== END 2021-07-31 13:36 | disposition home health service (06) | DRG 378 ==
LOC: HO.ED 14:31 → HO.EDOVER 16:20 → HO.IMC 16:46
PROVIDERS: Internal Medicine; Internal Medicine Gastroenterology; Admitting Provider Student in an Organized Health Care Education/Training Program; Emergency Provider Emergency Medicine; PCP Internal Medicine; Visit Provider Student in an Organized Health Care Education/Training Program
PROC: 0DJ08ZZ Inspection of Upper Intestinal Tract, Via Natural or Artificial Opening Endoscopic (ICD-10-PCS; principal; 2021-07-31 07:30)
DX: K92.2 Gastrointestinal hemorrhage, unspecified (principal); D62 Acute posthemorrhagic anemia; I50.32 Chronic diastolic (congestive) heart failure; I48.20 Chronic atrial fibrillation, unspecified; I25.10 Atherosclerotic heart disease of native coronary artery without angina pectoris; J44.9 Chronic obstructive pulmonary disease, unspecified; I11.0 Hypertensive heart disease with heart failure; I49.5 Sick sinus syndrome; D17.5 Benign lipomatous neoplasm of intra-abdominal organs; Z20.822 Contact with and (suspected) exposure to COVID-19; F17.210 Nicotine dependence, cigarettes, uncomplicated; Z71.6 Tobacco abuse counseling; Z85.118 Personal history of other malignant neoplasm of bronchus and lung; Z79.01 Long term (current) use of anticoagulants; Z79.82 Long term (current) use of aspirin; Z79.899 Other long term (current) drug therapy
CPT/HCPCS: 36415; 36430; 71045; 80048; 80076; 80162; 82272; 83735; 84443; 84484; 85025; 85027; 85610; 86850; 86900; 86901; 86923; 87635; 93005; 96365; 96375; 97116; 97163; 99285; 99291; J3430; P9016; P9017

== ENCOUNTER 2021-08-06 08:48 | Outpatient (REF) | payer MEDICARE, SELFPAY ==
[2021-08-06 12:06] LABS: MANUAL DIFF FLAG NO
[2021-08-06 12:13] LABS: Basophils Absolute Auto 0.1 X10*3/uL (0.0-0.2); Basophils Percent Auto 1.3 % (0-2); Eosinophils Absolute Auto 0.4 X10*3/uL (0.0-0.4); Eosinophils Percent Auto 7.8 % (0-4); Hematocrit 29.6 % (42.0-52.0); Imm Gran Abs Auto 0.02 X10*3/uL (0.00-0.03); Imm Gran Pct Auto 0.4 % (0.0-0.4); Lymphocytes Percent Auto 21.8 % (20-40); Mean Corpuscular HGB Conc 30.4 g/dl (31.0-36.0); Mean Corpuscular Hemoglobin 30.9 pg (27.0-33.0); Mean Corpuscular Volume 101.7 fL (80.0-98.0); Mean Platelet Volume 11.3 fL (9.4-12.4); Monocytes Absolute Auto 0.5 X10*3/uL (0.1-1.2); Monocytes Percent Auto 10.1 % (2-11); Neutrophils Absolute Auto 2.8 x10*3/uL (2.0-8.3); Neutrophils Percent Auto 58.6 % (45-73); Platelet Count 204 X10*3/uL (160-400); Red Blood Count 2.91 X10*6/uL (4.60-5.80); Red Cell Distribution Width 15.5 % (11.0-16.0); White Blood Count 4.7 X10*3/uL (4.8-10.8)
== END 2021-08-06 08:49 | disposition home or self-care (01) ==
LOC: HO.HMGCLDS 08:48
PROVIDERS: Visit Provider Student in an Organized Health Care Education/Training Program
DX: D62 Acute posthemorrhagic anemia (principal)
CPT/HCPCS: 36415; 85025

== ENCOUNTER → 2021-08-07 13:03 | Outpatient (BNVA) | payer MEDICARE, SELFPAY | PROVIDERS: PCP Internal Medicine; Visit Provider Internal Medicine | DX: I48.20 Chronic atrial fibrillation, unspecified (principal); Z51.81 Encounter for therapeutic drug level monitoring; Z79.01 Long term (current) use of anticoagulants | CPT/HCPCS: 99212 ==

== ENCOUNTER → 2021-08-10 11:52 | Outpatient (BNVA) | payer MEDICARE, SELFPAY | PROVIDERS: PCP Internal Medicine; Visit Provider Internal Medicine | DX: I48.20 Chronic atrial fibrillation, unspecified (principal); Z51.81 Encounter for therapeutic drug level monitoring; Z79.01 Long term (current) use of anticoagulants | CPT/HCPCS: Q3014 ==

== ENCOUNTER 2021-08-14 09:14 | Outpatient (REF) | payer MEDICARE, SELFPAY ==
[2021-08-14 11:36] LABS: Hematocrit 29.3 % (42.0-52.0); Mean Corpuscular HGB Conc 30.7 g/dl (31.0-36.0); Mean Corpuscular Hemoglobin 30.4 pg (27.0-33.0); Mean Platelet Volume 11.2 fL (9.4-12.4); Platelet Count 240 X10*3/uL (160-400); Red Blood Count 2.96 X10*6/uL (4.60-5.80); White Blood Count 4.5 X10*3/uL (4.8-10.8)
== END 2021-08-14 09:15 | disposition home or self-care (01) ==
LOC: HO.HMGCLDS 09:14
PROVIDERS: PCP Internal Medicine; Visit Provider Student in an Organized Health Care Education/Training Program
DX: D62 Acute posthemorrhagic anemia (principal)
CPT/HCPCS: 36415; 85027

== ENCOUNTER → 2021-08-15 13:17 | Outpatient (BNVA) | payer MEDICARE, SELFPAY | PROVIDERS: PCP Internal Medicine; Visit Provider Internal Medicine | DX: Z13.89 Encounter for screening for other disorder (principal) ==

== ENCOUNTER → 2021-08-17 08:20 | Outpatient (BNVA) | payer MEDICARE, SELFPAY | PROVIDERS: PCP Internal Medicine; Referring Provider Internal Medicine; Visit Provider Internal Medicine Gastroenterology | DX: Z12.11 Encounter for screening for malignant neoplasm of colon (principal); F17.210 Nicotine dependence, cigarettes, uncomplicated | CPT/HCPCS: 91110 ==

== ENCOUNTER 2021-08-20 10:06 | Outpatient (REF) | payer MEDICARE, SELFPAY ==
[2021-08-20 11:18] LABS: MANUAL DIFF FLAG NO
[2021-08-20 11:20] LABS: Basophils Absolute Auto 0.1 X10*3/uL (0.0-0.2); Basophils Percent Auto 0.9 % (0-2); Eosinophils Absolute Auto 0.3 X10*3/uL (0.0-0.4); Eosinophils Percent Auto 5.4 % (0-4); Hematocrit 30.7 % (42.0-52.0); Hemoglobin 9.4 g/dl (14.0-18.0); Imm Gran Abs Auto 0.01 X10*3/uL (0.00-0.03); Imm Gran Pct Auto 0.2 % (0.0-0.4); Lymphocytes Absolute Auto 1.4 X10*3/uL (1.2-4.9); Lymphocytes Percent Auto 26.7 % (20-40); Mean Corpuscular HGB Conc 30.6 g/dl (31.0-36.0); Mean Corpuscular Hemoglobin 30.3 pg (27.0-33.0); Mean Platelet Volume 10.9 fL (9.4-12.4); Monocytes Absolute Auto 0.6 X10*3/uL (0.1-1.2); Monocytes Percent Auto 11.1 % (2-11); Neutrophils Percent Auto 55.7 % (45-73); Platelet Count 225 X10*3/uL (160-400); Red Cell Distribution Width 14.9 % (11.0-16.0); White Blood Count 5.4 X10*3/uL (4.8-10.8)
== END 2021-08-20 10:07 | disposition home or self-care (01) ==
LOC: HO.HMGCLDS 10:06
PROVIDERS: Visit Provider Student in an Organized Health Care Education/Training Program
DX: D62 Acute posthemorrhagic anemia (principal)
CPT/HCPCS: 36415; 85025

== ENCOUNTER → 2021-08-21 10:58 | Outpatient (BNVA) | payer MEDICARE, SELFPAY | PROVIDERS: PCP Internal Medicine; Visit Provider Internal Medicine | DX: I48.20 Chronic atrial fibrillation, unspecified (principal); Z79.01 Long term (current) use of anticoagulants; Z51.81 Encounter for therapeutic drug level monitoring | CPT/HCPCS: Q3014 ==

== ENCOUNTER 2021-08-23 08:12 | Outpatient (REF) | payer MEDICARE, SELFPAY ==
[2021-08-23 11:15] LABS: MANUAL DIFF FLAG NO
[2021-08-23 11:29] LABS: Basophils Percent Auto 0.7 % (0-2); Eosinophils Absolute Auto 0.2 X10*3/uL (0.0-0.4); Eosinophils Percent Auto 4.5 % (0-4); Hematocrit 32.1 % (42.0-52.0); Hemoglobin 9.8 g/dl (14.0-18.0); Imm Gran Abs Auto 0.01 X10*3/uL (0.00-0.03); Imm Gran Pct Auto 0.2 % (0.0-0.4); Lymphocytes Absolute Auto 1.3 X10*3/uL (1.2-4.9); Lymphocytes Percent Auto 24.1 % (20-40); Mean Corpuscular HGB Conc 30.5 g/dl (31.0-36.0); Mean Corpuscular Hemoglobin 29.8 pg (27.0-33.0); Mean Corpuscular Volume 97.6 fL (80.0-98.0); Mean Platelet Volume 11.2 fL (9.4-12.4); Monocytes Absolute Auto 0.6 X10*3/uL (0.1-1.2); Monocytes Percent Auto 10.6 % (2-11); Neutrophils Absolute Auto 3.2 x10*3/uL (2.0-8.3); Neutrophils Percent Auto 59.9 % (45-73); Platelet Count 199 X10*3/uL (160-400); Red Blood Count 3.29 X10*6/uL (4.60-5.80); White Blood Count 5.4 X10*3/uL (4.8-10.8)
[2021-08-23 11:33] LABS: Appearance Urine CLEAR; Color Urine YELLOW; Glucose Urine UA NEG (NEG); Leukocyte Esterase Urine NEG (NEG); Nitrite Urine NEG (NEG); PH 5.5 (5.0-8.0); Specific Gravity - Urine 1.025 (1.005-1.025); Urine Blood NEG (NEG); Urine Ketones NEG (NEG); Urine Protein NEG (NEG-TRACE)
[2021-08-23 11:41] LABS: Alanine Aminotransferase 16 U/L (0-40); Albumin Level 3.6 g/dL (3.5-5.0); Alkaline Phosphatase 96 U/L (39-117); Anion Gap 12 (12-20); Aspartate Amino Transferase 18 U/L (5-37); Bilirubin Total 0.5 mg/dL (0.0-1.0); Blood Urea Nitrogen 27 mg/dL (9-16); Calcium 8.7 mg/dL (8.4-10.2); Carbon Dioxide 28 mmol/L (22-29); Chloride 107 mmol/L (96-108); Cholesterol 92 mg/dL; Estimated Glomerular Filt Rate > 60; Glucose Fasting 106 mg/dL (60-99); HDL Cholesterol 45 mg/dL; LDL Cholesterol Calculated 38 mg/dl; Potassium 4.1 mmol/L (3.3-5.1); Sodium 143 mmol/L (135-145); Total Protein 6.1 g/dL (6.5-8.0); Triglycerides 49 mg/dL
[2021-08-23 11:58] LABS: B Type Natriuretic Peptide 429 pg/mL (<100)
[2021-08-23 12:03] LABS: TSH reflex Free T4 1.16 uIU/mL (0.32-4.0); Vitamin D 25-OH Total 35.6 ng/mL (>30)
[2021-08-23 12:10] LABS: Uric Acid 4.9 mg/dL (3.4-7.0)
[2021-08-23 12:11] LABS: Digoxin < 0.3 ng/mL (0.8-2.0); Folate > 20.0 ng/mL (> or = 4.0); Vitamin B12 595 pg/mL (200-900)
== END 2021-08-23 08:13 | disposition home or self-care (01) ==
LOC: HO.HMGCLDS 08:12
PROVIDERS: Visit Provider Internal Medicine
DX: I10 Essential (primary) hypertension (principal); E55.9 Vitamin D deficiency, unspecified; M10.9 Gout, unspecified; I50.20 Unspecified systolic (congestive) heart failure; E53.8 Deficiency of other specified B group vitamins; G62.9 Polyneuropathy, unspecified; E78.00 Pure hypercholesterolemia, unspecified; Z79.899 Other long term (current) drug therapy
CPT/HCPCS: 36415; 80053; 80061; 80162; 81003; 82306; 82607; 82746; 83880; 84443; 84550; 85025

== ENCOUNTER → 2021-08-27 10:07 | Outpatient (BNVA) | payer MEDICARE, SELFPAY | PROVIDERS: PCP Internal Medicine; Referring Provider Internal Medicine; Visit Provider Internal Medicine Cardiovascular Disease | DX: I50.20 Unspecified systolic (congestive) heart failure (principal); I48.20 Chronic atrial fibrillation, unspecified; Z79.899 Other long term (current) drug therapy | CPT/HCPCS: 99212 ==

== ENCOUNTER → 2021-08-28 09:45 | Outpatient (BNVA) | payer MEDICARE, SELFPAY | PROVIDERS: PCP Internal Medicine; Visit Provider Internal Medicine | DX: Z13.89 Encounter for screening for other disorder (principal) ==

== ENCOUNTER 2021-08-29 09:48 | Outpatient (REF) | payer MEDICARE, SELFPAY ==
[2021-08-29 11:55] LABS: Hematocrit 31.6 % (42.0-52.0); Hemoglobin 9.7 g/dl (14.0-18.0); Mean Corpuscular HGB Conc 30.7 g/dl (31.0-36.0); Mean Corpuscular Hemoglobin 29.8 pg (27.0-33.0); Mean Corpuscular Volume 97.2 fL (80.0-98.0); Mean Platelet Volume 11.6 fL (9.4-12.4); Platelet Count 171 X10*3/uL (160-400); Red Blood Count 3.25 X10*6/uL (4.60-5.80); Red Cell Distribution Width 15.2 % (11.0-16.0); White Blood Count 4.6 X10*3/uL (4.8-10.8)
== END 2021-08-29 09:49 | disposition home or self-care (01) ==
LOC: HO.HMGCLDS 09:48
PROVIDERS: PCP Internal Medicine; Visit Provider Student in an Organized Health Care Education/Training Program
DX: D62 Acute posthemorrhagic anemia (principal)
CPT/HCPCS: 36415; 85027

== ENCOUNTER → 2021-09-04 10:30 | Outpatient (BNVA) | payer MEDICARE, SELFPAY | PROVIDERS: PCP Internal Medicine; Visit Provider Internal Medicine | DX: Z13.89 Encounter for screening for other disorder (principal) ==

== ENCOUNTER → 2021-09-11 10:40 | Outpatient (BNVA) | payer MEDICARE, SELFPAY | PROVIDERS: PCP Internal Medicine; Visit Provider Internal Medicine | DX: Z79.01 Long term (current) use of anticoagulants (principal) ==

== ENCOUNTER → 2021-09-18 10:15 | Outpatient (BNVA) | payer MEDICARE, SELFPAY | PROVIDERS: PCP Internal Medicine; Visit Provider Internal Medicine | DX: Z13.89 Encounter for screening for other disorder (principal) ==

== ENCOUNTER → 2021-09-26 11:50 | Outpatient (BNVA) | payer MEDICARE, SELFPAY | PROVIDERS: PCP Internal Medicine; Visit Provider Internal Medicine | DX: Z79.01 Long term (current) use of anticoagulants (principal) ==

== ENCOUNTER → 2021-10-04 10:11 | Outpatient (BNVA) | payer MEDICARE, SELFPAY | PROVIDERS: PCP Internal Medicine; Visit Provider Internal Medicine | DX: I48.20 Chronic atrial fibrillation, unspecified (principal); Z79.01 Long term (current) use of anticoagulants; Z51.81 Encounter for therapeutic drug level monitoring | CPT/HCPCS: 85610; 99211 ==

== ENCOUNTER 2021-10-05 11:44 | Inpatient (IN) | payer MEDICARE, SELFPAY ==
[2021-10-05] VITALS (9 sets, daily range): BP systolic 112–141; BP diastolic 67–87; PULSE 93–127; RESP 15–22; TEMP 36.1–36.9; O2SAT 2–100; BMI 20.5
--- NOTE | ~2021-10-05 | XR_ITS ---
EXAMINATION: XR CHEST CLINICAL INFORMATION: Shortness breath COMPARISON: July 28, 2021 and PET/CT of July 10, 2021 as well as chest x-ray June 20, 2021 TECHNIQUE: AP portable view of the chest was obtained. FINDINGS: Patient status post previous right upper lobe surgery with postsurgical change about the right hemithorax. There is an increase in some disease about the left base with question of possible loculated lateral pneumothorax versus overlapping shadows in known bullous disease. There are some regions of bronchial wall thickening and interstitial prominence bilaterally and some degree of pulmonary vascular congestion or reactive airways disease is not excluded. The cardiopericardial silhouette is mildly enlarged. No significant pleural effusion. Medullary infarct or enchondroma seen about the proximal left humerus. XR/XR chest 1V IMPRESSION: Question loculated lateral pneumothorax versus overlap of structures which could be related to sheets or skin folds in patient with some bullae being present. Some interstitial markings which have increased which may be related to pulmonary vascular congestion in this patient with mild cardiomegaly. Increase in left lower lobe density which may be related to atelectasis or pneumonitis.
--- NOTE | ~2021-10-05 | XR_ITS ---
EXAMINATION: XR CHEST CLINICAL INFORMATION: SOB, follow-up pleural effusion. COMPARISON: Chest 10/05/2021. CT chest 10/05/2021 TECHNIQUE: Frontal view of the chest was obtained. FINDINGS: The lungs are hypoexpanded with moderate left lower lobe pleural effusion/atelectasis. There are postsurgical jesus in the right upper lobe associated with a similar nodule better seen on CT chest 10/22/2021. Rest of lungs are clear. The heart size is normal. Pulmonary vascularity is normal. There are bone infarct changes in the left proximal humerus. XR/XR chest 1V IMPRESSION: Right upper lobe postsurgical changes with associated soft tissue nodule. There is small to moderate left pleural effusion with underlying atelectasis. These above findings are unchanged to CT chest 10/22/2021. No new findings.
--- NOTE | ~2021-10-05 | XR_ITS ---
EXAMINATION: XR KNEE, LEFT CLINICAL INFORMATION: Left knee pain and swelling. COMPARISON: None TECHNIQUE: Two views of the left knee. FINDINGS: Moderate to severe tricompartmental degenerative joint changes are seen most pronounced in the lateral femoral tibial compartment. There is no acute fracture, dislocation or joint effusion. XR/XR knee LT 2V IMPRESSION: Moderate to severe tricompartmental degenerative joint changes. No overt acute abnormality.
--- NOTE | ~2021-10-05 | CT_ITS ---
EXAMINATION: CT CHEST WITHOUT CONTRAST CLINICAL INFORMATION: Abnormal chest radiograph. Productive cough. COMPARISON: PET/CT performed 07/10/2021. TECHNIQUE: Multidetector volumetric CT imaging of the chest was done. Axial MIP volume rendering provided. Sagittal and coronal reformatted images were obtained. This CT examination was performed using dose optimization techniques as appropriate, variously including the following: *Automated exposure control *Adjustment of mA and/or kV according to patient size (this includes techniques or standardized protocols for targeted exams where dose is matched to indication/reason for exam; i.e. extremities or head) *Use of iterative reconstruction technique DLP: 312 mGy-cm FINDINGS: LUNGS: The central airways are patent with minimal secretions noted in the mainstem bronchi. There is moderate paraseptal emphysema. Right upper lobe FDG avid nodule is again noted. This appears increased in size from prior. This currently measures 2.4 x 2.2 cm as seen on series 5 image 128. This had measured 1.9 x 1.3 cm on the prior PET/CT. Adjacent calcifications with linear bands of scarring. There is extension centrally to the right suprahilar region where there is similar nodularity to the prior PET. This measures 1.6 cm on image 184. This nodularity appears to extend along the suture line. Right basilar atelectasis. No pneumothorax. There is a moderate left-sided pleural effusion. MEDIASTINUM: Enlarged heart with coronary artery calcifications. Mediastinal lymph nodes are again noted, the lack of IV contrast limits evaluation. Precarinal node measures 1.7 cm in short axis, appearing grossly similar to prior. No pericardial effusion. AXILLA: No lymphadenopathy. UPPER ABDOMEN: Stones in the gallbladder lumen. Suspect right midpole 0.3 cm renal calculus, 10 cm from the posterior axillary line. OSSEOUS STRUCTURES: Osteopenia. Degenerative changes throughout the spine. DISH. CT/CT chest wo con IMPRESSION: 1. Moderate left pleural effusion. No pneumothorax. 2. Suture line in the right upper lung. Soft tissue thickening/nodularity along this area, with increase in size of the nodule at the right apex which was previously seen to be FDG avid. 3. Persistent mediastinal lymphadenopathy. 4. Moderate emphysema. Fleischner guidelines were followed.
--- NOTE | ~2021-10-05 | XR_ITS ---
EXAMINATION: XR CHEST CLINICAL INFORMATION: Pleural effusion. COMPARISON: 10/07/[address] scan dated 10/06/2019. TECHNIQUE: Frontal view of the chest was obtained. FINDINGS: Post surgical changes are again seen in the right upper lobe and apex with chain sutures, associated linear scarring/atelectasis and right apical pleural thickening. A small curvilinear opacity is again seen along the minor fissure laterally on the right with mild interval increase. There is a persistent small left pleural effusion with mild interval decrease. Mild blunting of the right costophrenic angle is not significant change. The heart and mediastinal structures are unremarkable. XR/XR chest 1V IMPRESSION: 1. Persistent small left pleural effusion with mild interval decrease. Underlying chronic interstitial changes without significant change. 2. Post surgical changes in the right lung without significant change. Small curvilinear opacity in the right upper was seen previously suggesting curvilinear scarring/pleural thickening.
--- NOTE | 2021-10-05 11:54 | ECG_ITS ---
Test Reason : SOB Blood Pressure : / mmHG Vent. Rate : 107 BPM Atrial Rate : 000 BPM P-R Int : 000 ms QRS Dur : 150 ms QT Int : 384 ms P-R-T Axes : 000 263 033 degrees QTc Int : 512 ms Atrial fibrillation with rapid ventricular response Right bundle branch block Abnormal ECG When compared with ECG of 27-JUL-2021 13:45, Vent. rate has increased BY 47 BPM QT has lengthened Referred By: Melissa Dorman Electronically Signed By:WILIAM WALLS MD
--- NOTE | 2021-10-05 12:19 | ED_ITS ---
HPI - SOB/Dyspnea General Chief Complaint: Dyspnea Stated Complaint: SOB/COUGH Time Seen by Provider: 10/05/21 11:54 Source: patient and EMS Mode of arrival: EMS Limitations: no limitations History of Present Illness HPI Narrative: 81 y/o male with history of severe COPD, CHF, afib on Coumadin, recurrent non- small cell lung cancer on recent PET s/p RUL wedge resection, pneumolysis and lymphadenectomy in October 2019, PAD, CAD, DM2, HLD, OA, HTN, chronic LE edema, hx GI bleed, & gout who presents to the ER with SOB and productive cough that started last night. He states he is coughing up ryan phlegm intermittently. He denies any chest pain. He isn't sure if he had a fever or not at home. He reports an upcoming appointment next week with the Thoracic Surgeons to discuss options with his recent PET scan findings. Of note he was seen in the clinic on 09/21 for knee swelling & effusion, treated with increased dose of lasix. His usual weight is 158 and he states he was 162 lbs today. MD elicited complaint: shortness of breath and cough Pertinent past history: COPD Onset (ago): day(s) (1) Timing: constant and progressively worsening Severity: moderate Exacerbating factors: exertion and coughing Relieving factors: rest Known history of: COPD Associated symptoms: cough and sputum production Treatment prior to arrival: none Related Data Home oxygen amount: none Home Medications Medication Instructions Recorded Confirmed calcium carbonate 600 mg-vitamin 1 tab PO DAILY 07/10/20 10/05/21 D3 5 mcg (200 unit) tablet multivitamin 1 tab PO DAILY 07/10/20 10/05/21 nicotine 14 mg/24 hr daily 1 patch TRANSDERMAL DAILY@1500 07/10/20 10/05/21 transdermal patch warfarin 1 mg tablet 1 mg PO SUTUWETHFR@1800 tab 07/20/21 10/05/21 aspirin 81 mg tablet,delayed 81 mg PO DAILY@1500 09/22/21 10/05/21 release (Adult Low Dose Aspirin) febuxostat 40 mg tablet 40 mg PO DAILY 09/22/21 10/05/21 furosemide 40 mg tablet 40 mg PO DAILY 09/22/21 10/05/21 valsartan 40 mg tablet 40 mg PO ONCE tab 09/22/21 10/05/21 atorvastatin 40 mg tablet 1 tab PO BEDTIME 10/05/21 10/05/21 iron 75 mg PO DAILY@1500 10/05/21 10/05/21 potassium chloride 20 mEq 1 tab PO DAILY 10/05/21 10/05/21 tablet,extended release(part/cryst) triamcinolone acetonide 0.1 % 1 appl TOPICAL BID-TID PRN 10/05/21 10/05/21 topical cream warfarin 1 mg tablet (Jantoven) 2 mg PO MOSA@1800 10/05/21 10/05/21 Previous Rx's Medication Instructions Recorded albuterol sulfate 90 mcg/actuation 2 puff INHALATION Q6H PRN #6.7 g 11/30/20 aerosol inhaler (Ventolin HFA) folic acid 1 mg tablet 1 mg PO DAILY #90 tab 04/16/21 HINGED KNEE BRACE (left) #1 ea 08/31/21 vit C 250 mg-vit E 90 mg-zinc 40 1 tab PO QAM 90 Days #90 cap 08/31/21 mg-copper 1 [id number] capsule (PreserVision AREDS-2) metoprolol succinate 100 mg 100 mg PO DAILY 90 Days #90 tab 09/10/21 tablet,extended release 24 hr metoprolol succinate 25 mg 25 mg PO BEDTIME 90 Days #90 cap 09/10/21 tablet,extended release 24 hr Allergies Allergy/AdvReac Type Severity Reaction Status Date / Time No Known Allergies Allergy Unknown UNKNOWN Verified 10/04/21 10:14 [NO KNOWN ALLERGIES] Review of Systems Review of Systems: Constitutional: No Fever, No Chills ENT/Mouth: No sore throat, No Rhinorrhea, No Swallowing Difficulty Eyes: No Eye Pain, No Swelling, No Redness Cardiovascular: No Chest Pain, + SOB, No Orthopnea, + Edema Respiratory: + Cough, + Sputum, No Wheezing, + dyspnea Gastrointestinal: No Nausea, No Vomiting, No Diarrhea, No abdominal Pain, No Hematochezia, No Melena Genitourinary: No Dysuria, No Urinary Frequency, No Hematuria Musculoskeletal: No joint pain, No Myalgias Skin: No Skin Lesions, No rash Neuro: + Weakness, No Numbness, No Dizziness, No Headache Psych: No Anxiety/Panic, No Depression Heme/Lymph: No Bruising, No Lymphadenopathy Endocrine: No Polyuria, No Polydipsia PMFSH Past Medical History Medical History Anemia Back pain Benign essential hypertension Bilateral lower extremity edema CAD (coronary artery disease) Cancer of upper lobe of right lung (~2013) Chronic atrial fibrillation Congestive heart failure COPD (chronic obstructive pulmonary disease) Gout Heart failure with reduced ejection fraction HLD (hyperlipidemia) Lumbar degenerative disc disease Neuropathy Osteoarthritis Osteoarthritis of knees, bilateral PAD (peripheral artery disease) Physical deconditioning Recurrent non-small cell lung cancer Smoker Type 2 diabetes mellitus with other diabetic kidney complication Vitamin D deficiency Wears dentures Surgical History History of angioplasty (~12/2020) History of back surgery History of brain surgery (~2003) History of bronchoscopy (~2020) History of cardiac cath (~02/2016) History of colonoscopy (~01/2001) History of lung surgery (~07/2013) History of lung surgery (~2019) History of partial colectomy (~01/2001) History of right knee surgery (~09/2005) History of thoracentesis (~09/2019) Family History Family History Mother No problems noted. Social History Social History Household Members: None Housing: Condominium Are you a primary lawn care professional to a significant other at home: No Do you presently have visiting nurse or other home services: No Alcohol intake: never Patient Tobacco Use Status: Current everyday Tobacco user Tobacco use type: Cigarette Cigarette Packs Per Day: 0.5 Cigarettes Per Day: 10 Years Smoked: 50 Second Hand Smoke Exposure: No Use of substances other than those prescribed or required for medical reasons: No Advance Directives: Yes Advance Directives Information Provided: Yes Advance Directives on File: No Advance Directives Date on File: 11/29/20 service: No Current occupational status: retired Cognitive needs: No Hearing needs: No Vision needs: Yes Physical Exam Vital Signs: Vital Signs: Last Vital Signs Temp 98.4 F 10/05/21 14:22 Pulse 127 H 10/05/21 15:45 Resp 22 H 10/05/21 15:45 BP 129/82 10/05/21 15:45 Pulse Ox 100 10/05/21 15:45 BMI result Body Mass Index 20.5 Appearance: Alert. Oriented X3. No acute distress. Eyes: Pupils equal, round and reactive to light. ENT: Pharynx normal. Neck: Normal inspection. Neck supple. CVS: Irregularly irregular, tachycardic. Pulses normal. Respiratory: Mild respiratory distress, RR low 20. Breath sounds are rhonchorous and coarse throughout, significant congested cough Abdomen: Soft and nontender. +BS x4 Skin: Skin warm and dry. Normal skin color. Normal skin turgor. No rashes. Extremities: 2+ pitting lower extremity edema. Neuro: Oriented X 3. No motor deficit. No sensory deficit. Course Course Course Narrative: 81 y/o male with medical history significant for COPD, CHF, recurrent NSCLC, afib on coumadin, hx GI bleed coming in with increasing SOB and productive cough at home. On arrival he is tachycardic 110s in rapid afib. No respiratory distress but very congested cough deep in the lungs, unable to expectorate any sputum. No wheezing appreciated, very rhonchorous and coarse. Will give trial of mucomyst and PEP therapy. CXR, EKG and lab workup ordered. Reevaluation(s) Reevaluation #1: 1 pm - given his productive cough, extensive pulmonary history of recent admission within the last 90 days will cover for possible HCAP with vanco/cefep elizabeth. Holding off on IVF given concern for superimposed CHF as well. His BNP is 1300, significantly more elevated than it has been in past. Will also give lasix 60 mg IV x1. CXR with possible loculated PTX, prior CT reviews he has peripheral blebs with severe emphysematous changes. Will get dry CT for further evaluation. HR low 100s without intervention, BP stable. Reevaluation #2: CT without PTX - moderate left sided pleural effusion. INR 2.6 today. Unable to tap, no emergent need. Will plan for admission, spoke w/ Dr. Koehler from Hospitalist team. MDM - SOB/Dyspnea Medical Records Attestation: I reviewed the patient's medical records. Lab Data Attestation: I reviewed the patient's lab results. Result diagrams: 10/05/21 12:40 10/05/21 12:40 Labs: Lab Results 10/05/21 10/05/21 10/05/21 Range/Units 12:39 12:39 12:39 WBC (4.8-10.8) X10*3/uL RBC (4.60-5.80) X10*6/uL Hgb (14.0-18.0) g/dl Hct (42.0-52.0) % MCV (80.0-98.0) fL MCH (27.0-33.0) pg MCHC (31.0-36.0) g/dl RDW (11.0-16.0) % Plt Count (160-400) X10*3/uL MPV (9.4-12.4) fL Immature Gran % (Auto) (0.0-0.4) % Neut % (Auto) (45-73) % Lymph % (Auto) (20-40) % [place] % (Auto) (2-11) % Eos % (Auto) (0-4) % Baso % (Auto) (0-2) % Lymph # (Auto) (1.2-4.9) X10*3/uL [place] # (Auto) (0.1-1.2) X10*3/uL Eos # (Auto) (0.0-0.4) X10*3/uL Baso # (Auto) (0.0-0.2) X10*3/uL Abs Immat Gran (auto) (0.00-0.03) X10*3/uL Absolute Neuts (auto) (2.0-8.3) x10*3/uL Absolute Nucleated RBC (0.0-0.012) X10*3/uL Nucleated RBC % (auto) (0.0-0.2) /100WBC PT (9.9-13.0) SEC INR (0.9-1.1) APTT (24.1-38.0) SEC Sodium (135-145) mmol/L Potassium (3.3-5.1) mmol/L Chloride (96-108) mmol/L Carbon Dioxide (22-29) mmol/L Anion Gap (12-20) BUN (9-16) mg/dL Creatinine (0.5-1.4) mg/dL Estim Creat Clear Calc Estimated GFR Random Glucose (60-115) mg/dL Lactic Acid 1.5 (0.5-2.0) mmol/L Calcium (8.4-10.2) mg/dL Magnesium (1.6-2.6) mg/dL Total Bilirubin (0.0-1.0) mg/dL Direct Bilirubin (0.0-0.5) mg/dL AST (5-37) U/L ALT (0-40) U/L Alkaline Phosphatase (39-117) U/L Troponin I High Sens (<3.5-35.0) ng/L B-Natriuretic Peptide 1366 H (<100) pg/mL Total Protein (6.5-8.0) g/dL Albumin (3.5-5.0) g/dL Procalcitonin ng/mL Urine Color Urine Appearance Urine pH (5.0-8.0) Ur Specific [place] (1.005-1.025) Urine Protein (NEG-TRACE) MG/DL Urine Glucose (UA) (NEG) MG/DL Urine Ketones (NEG) MG/DL Urine Blood (NEG) Urine Nitrite (NEG) Ur Leukocyte Esterase (NEG) Urine RBC (0) /HPF Urine WBC (0-4) /HPF Ur Squamous Epith Cells /LPF Urine Bacteria /LPF COVID-19 (DAMASO) (Negative) COVID-19 Clin Com Influenza Type A (JLUIS) Negative (Negative) Influenza Type B (JLUIS) Negative (Negative) Influenza A & B Note See Note 10/05/21 10/05/21 10/05/21 Range/Units 12:39 12:40 12:40 WBC 4.2 L (4.8-10.8) X10*3/uL RBC 3.92 L D (4.60-5.80) X10*6/uL Hgb 12.3 L D (14.0-18.0) g/dl Hct 38.9 L D (42.0-52.0) % MCV 99.2 H (80.0-98.0) fL MCH 31.4 (27.0-33.0) pg MCHC 31.6 (31.0-36.0) g/dl RDW 20.9 H (11.0-16.0) % Plt Count 137 L (160-400) X10*3/uL MPV 12.3 (9.4-12.4) fL Immature Gran % (Auto) 0.2 (0.0-0.4) % Neut % (Auto) 65.6 (45-73) % Lymph % (Auto) 20.0 (20-40) % [place] % (Auto) 11.6 H (2-11) % Eos % (Auto) 1.4 (0-4) % Baso % (Auto) 1.2 (0-2) % Lymph # (Auto) 0.8 L (1.2-4.9) X10*3/uL [place] # (Auto) 0.5 (0.1-1.2) X10*3/uL Eos # (Auto) 0.1 (0.0-0.4) X10*3/uL Baso # (Auto) 0.1 (0.0-0.2) X10*3/uL Abs Immat Gran (auto) 0.01 (0.00-0.03) X10*3/uL Absolute Neuts (auto) 2.7 (2.0-8.3) x10*3/uL Absolute Nucleated RBC 0.000 (0.0-0.012) X10*3/uL Nucleated RBC % (auto) 0.0 (0.0-0.2) /100WBC PT 30.3 H (9.9-13.0) SEC INR 2.6 H (0.9-1.1) APTT 47.4 H (24.1-38.0) SEC Sodium 144 (135-145) mmol/L Potassium 4.8 (3.3-5.1) mmol/L Chloride 105 (96-108) mmol/L Carbon Dioxide 30 H (22-29) mmol/L Anion Gap 14 (12-20) BUN 35 H (9-16) mg/dL Creatinine 1.21 (0.5-1.4) mg/dL Estim Creat Clear Calc 48.3 Estimated GFR 57 Random Glucose 101 (60-115) mg/dL Lactic Acid (0.5-2.0) mmol/L Calcium 9.5 D (8.4-10.2) mg/dL Magnesium 2.2 (1.6-2.6) mg/dL Total Bilirubin 1.1 H (0.0-1.0) mg/dL Direct Bilirubin 0.5 (0.0-0.5) mg/dL AST 29 D (5-37) U/L ALT 23 (0-40) U/L Alkaline Phosphatase 88 (39-117) U/L Troponin I High Sens (<3.5-35.0) ng/L B-Natriuretic Peptide (<100) pg/mL Total Protein 6.3 L (6.5-8.0) g/dL Albumin 3.6 (3.5-5.0) g/dL Procalcitonin ng/mL Urine Color Urine Appearance Urine pH (5.0-8.0) Ur Specific [place] (1.005-1.025) Urine Protein (NEG-TRACE) MG/DL Urine Glucose (UA) (NEG) MG/DL Urine Ketones (NEG) MG/DL Urine Blood (NEG) Urine Nitrite (NEG) Ur Leukocyte Esterase (NEG) Urine RBC (0) /HPF Urine WBC (0-4) /HPF Ur Squamous Epith Cells /LPF Urine Bacteria /LPF COVID-19 (DAMASO) (Negative) COVID-19 Clin Com Influenza Type A (JLUIS) (Negative) Influenza Type B (JLUIS) (Negative) Influenza A & B Note 10/05/21 10/05/21 10/05/21 Range/Units 12:40 12:40 12:40 WBC (4.8-10.8) X10*3/uL RBC (4.60-5.80) X10*6/uL Hgb (14.0-18.0) g/dl Hct (42.0-52.0) % MCV (80.0-98.0) fL MCH (27.0-33.0) pg MCHC (31.0-36.0) g/dl RDW (11.0-16.0) % Plt Count (160-400) X10*3/uL MPV (9.4-12.4) fL Immature Gran % (Auto) (0.0-0.4) % Neut % (Auto) (45-73) % Lymph % (Auto) (20-40) % [place] % (Auto) (2-11) % Eos % (Auto) (0-4) % Baso % (Auto) (0-2) % Lymph # (Auto) (1.2-4.9) X10*3/uL [place] # (Auto) (0.1-1.2) X10*3/uL Eos # (Auto) (0.0-0.4) X10*3/uL Baso # (Auto) (0.0-0.2) X10*3/uL Abs Immat Gran (auto) (0.00-0.03) X10*3/uL Absolute Neuts (auto) (2.0-8.3) x10*3/uL Absolute Nucleated RBC (0.0-0.012) X10*3/uL Nucleated RBC % (auto) (0.0-0.2) /100WBC PT (9.9-13.0) SEC INR (0.9-1.1) APTT (24.1-38.0) SEC Sodium (135-145) mmol/L Potassium (3.3-5.1) mmol/L Chloride (96-108) mmol/L Carbon Dioxide (22-29) mmol/L Anion Gap (12-20) BUN (9-16) mg/dL Creatinine (0.5-1.4) mg/dL Estim Creat Clear Calc Estimated GFR Random Glucose (60-115) mg/dL Lactic Acid (0.5-2.0) mmol/L Calcium (8.4-10.2) mg/dL Magnesium (1.6-2.6) mg/dL Total Bilirubin (0.0-1.0) mg/dL Direct Bilirubin (0.0-0.5) mg/dL AST (5-37) U/L ALT (0-40) U/L Alkaline Phosphatase (39-117) U/L Troponin I High Sens 12.4 (<3.5-35.0) ng/L B-Natriuretic Peptide (<100) pg/mL Total Protein (6.5-8.0) g/dL Albumin (3.5-5.0) g/dL Procalcitonin 0.10 ng/mL Urine Color Urine Appearance Urine pH (5.0-8.0) Ur Specific [place] (1.005-1.025) Urine Protein (NEG-TRACE) MG/DL Urine Glucose (UA) (NEG) MG/DL Urine Ketones (NEG) MG/DL Urine Blood (NEG) Urine Nitrite (NEG) Ur Leukocyte Esterase (NEG) Urine RBC (0) /HPF Urine WBC (0-4) /HPF Ur Squamous Epith Cells /LPF Urine Bacteria /LPF COVID-19 (DAMASO) Negative (Negative) COVID-19 Clin Com See Note Influenza Type A (JLUIS) (Negative) Influenza Type B (JLUSI) (Negative) Influenza A & B Note 10/05/21 Range/Units 15:51 WBC (4.8-10.8) X10*3/uL RBC (4.60-5.80) X10*6/uL Hgb (14.0-18.0) g/dl Hct (42.0-52.0) % MCV (80.0-98.0) fL MCH (27.0-33.0) pg MCHC (31.0-36.0) g/dl RDW (11.0-16.0) % Plt Count (160-400) X10*3/uL MPV (9.4-12.4) fL Immature Gran % (Auto) (0.0-0.4) % Neut % (Auto) (45-73) % Lymph % (Auto) (20-40) % [place] % (Auto) (2-11) % Eos % (Auto) (0-4) % Baso % (Auto) (0-2) % Lymph # (Auto) (1.2-4.9) X10*3/uL [place] # (Auto) (0.1-1.2) X10*3/uL Eos # (Auto) (0.0-0.4) X10*3/uL Baso # (Auto) (0.0-0.2) X10*3/uL Abs Immat Gran (auto) (0.00-0.03) X10*3/uL Absolute Neuts (auto) (2.0-8.3) x10*3/uL Absolute Nucleated RBC (0.0-0.012) X10*3/uL Nucleated RBC % (auto) (0.0-0.2) /100WBC PT (9.9-13.0) SEC INR (0.9-1.1) APTT (24.1-38.0) SEC Sodium (135-145) mmol/L Potassium (3.3-5.1) mmol/L Chloride (96-108) mmol/L Carbon Dioxide (22-29) mmol/L Anion Gap (12-20) BUN (9-16) mg/dL Creatinine (0.5-1.4) mg/dL Estim Creat Clear Calc Estimated GFR Random Glucose (60-115) mg/dL Lactic Acid (0.5-2.0) mmol/L Calcium (8.4-10.2) mg/dL Magnesium (1.6-2.6) mg/dL Total Bilirubin (0.0-1.0) mg/dL Direct Bilirubin (0.0-0.5) mg/dL AST (5-37) U/L ALT (0-40) U/L Alkaline Phosphatase (39-117) U/L Troponin I High Sens (<3.5-35.0) ng/L B-Natriuretic Peptide (<100) pg/mL Total Protein (6.5-8.0) g/dL Albumin (3.5-5.0) g/dL Procalcitonin ng/mL Urine Color YELLOW Urine Appearance CLEAR Urine pH 6.0 (5.0-8.0) Ur Specific [place] 1.010 (1.005-1.025) Urine Protein NEG (NEG-TRACE) MG/DL Urine Glucose (UA) NEG (NEG) MG/DL Urine Ketones NEG (NEG) MG/DL Urine Blood 1+ H (NEG) Urine Nitrite NEG (NEG) Ur Leukocyte Esterase NEG (NEG) Urine RBC 5-9 H (0) /HPF Urine WBC 0 (0-4) /HPF Ur Squamous Epith Cells NONE /LPF Urine Bacteria NONE /LPF COVID-19 (DAMASO) (Negative) COVID-19 Clin Com Influenza Type A (JLUIS) (Negative) Influenza Type B (JLUIS) (Negative) Influenza A & B Note ECG Data Attestation: I personally reviewed and interpreted this ECG as follows: ECG interpretation date: 10/05/21 ECG interpretation time: 13:56 Prior ECG tracings: available for review Interpretation: atrial fibrillation with rapid ventricular response, HR 107 bpm, RBBB, no ST segment elevations, similar to prior Critical Care Time Critical Care Time Critical Care Time: Yes Total Critical Care Time: 39 Attestation: I have personally provided critical care time exclusive of time spent on separately billable procedures. Time includes review of lab data, radiology results, discussion with consultants, and monitoring for potential decompensation. Intervention performed as documented. Discharge Plan Discharge Clinical Impression: Acute CHF, Atrial fibrillation with RVR, Pleural effusion on left Patient Disposition: Admitted As Inpatient
[2021-10-05 12:47] LABS: MANUAL DIFF FLAG NO
[2021-10-05 12:50] LABS: Basophils Absolute Auto 0.1 X10*3/uL (0.0-0.2); Basophils Percent Auto 1.2 % (0-2); Eosinophils Absolute Auto 0.1 X10*3/uL (0.0-0.4); Eosinophils Percent Auto 1.4 % (0-4); Hematocrit 38.9 % (42.0-52.0); Hemoglobin 12.3 g/dl (14.0-18.0); Imm Gran Abs Auto 0.01 X10*3/uL (0.00-0.03); Imm Gran Pct Auto 0.2 % (0.0-0.4); Lymphocytes Absolute Auto 0.8 X10*3/uL (1.2-4.9); Mean Corpuscular HGB Conc 31.6 g/dl (31.0-36.0); Mean Corpuscular Hemoglobin 31.4 pg (27.0-33.0); Mean Corpuscular Volume 99.2 fL (80.0-98.0); Mean Platelet Volume 12.3 fL (9.4-12.4); Monocytes Absolute Auto 0.5 X10*3/uL (0.1-1.2); Monocytes Percent Auto 11.6 % (2-11); Neutrophils Absolute Auto 2.7 x10*3/uL (2.0-8.3); Neutrophils Percent Auto 65.6 % (45-73); Platelet Count 137 X10*3/uL (160-400); Red Blood Count 3.92 X10*6/uL (4.60-5.80); Red Cell Distribution Width 20.9 % (11.0-16.0); White Blood Count 4.2 X10*3/uL (4.8-10.8)
[2021-10-05 12:56] LABS: INTERNATIONAL NORM RATIO 2.6 (0.9-1.1); Prothrombin Time 30.3 SEC (9.9-13.0)
[2021-10-05 12:58] LABS: Partial Thromboplastin Time 47.4 SEC (24.1-38.0)
[2021-10-05 13:00] LABS: Lactic Acid 1.5 mmol/L (0.5-2.0)
[2021-10-05 13:07] LABS: B Type Natriuretic Peptide 1366 pg/mL (<100)
[2021-10-05 13:07] LABS: Alanine Aminotransferase 23 U/L (0-40); Albumin Level 3.6 g/dL (3.5-5.0); Alkaline Phosphatase 88 U/L (39-117); Anion Gap 14 (12-20); Aspartate Amino Transferase 29 U/L (5-37); Bilirubin Direct 0.5 mg/dL (0.0-0.5); Bilirubin Total 1.1 mg/dL (0.0-1.0); Calcium 9.5 mg/dL (8.4-10.2); Carbon Dioxide 30 mmol/L (22-29); Chloride 105 mmol/L (96-108); Creatinine Clr Calc Pharmacy 48.3; Estimated Glomerular Filt Rate 57; Glucose Random 101 mg/dL (60-115); Magnesium 2.2 mg/dL (1.6-2.6); Potassium 4.8 mmol/L (3.3-5.1); Sodium 144 mmol/L (135-145); Total Protein 6.3 g/dL (6.5-8.0)
[2021-10-05 13:08] LABS: Troponin-I High Sensitivity 12.4 ng/L (<3.5-35.0)
[2021-10-05 13:10] LABS: IDNOW Serial# 16C4AD1C; Influenza A Negative (Negative); Influenza B2 Negative (Negative)
[2021-10-05 13:10] LABS: Blood Urea Nitrogen 35 mg/dL (9-16); COVID-19 Test Negative (Negative)
[2021-10-05] MEDS: Albuterol Sulfate (0.083%) 2.5 MG/3 ML VIAL.NEB 5 MG INHALE (13:21)
[2021-10-05] MEDS: Acetylcysteine 10 % 400 MG/4 ML VIAL 200 MG INHALE (13:21)
--- NOTE | 2021-10-05 14:10 | PHA.MEDREC ---
Pharmacy Consult ? Medication Reconciliation Pharmacy has completed the medication reconciliation. Patient had list of medications that he updated of 09/23/21. Patient was unsure of new warfarin dose because his INR was 3 yesterday. Patient use anticoagulation clinic here at [facility], per note he is to take 1 mg x 5 days and 2 mg x 2 days. Jenna Brandt, PharmD
[2021-10-05] MEDS: Furosemide 100 MG/10 ML VIAL 60 MG IVPUSH (14:19)
[2021-10-05] MEDS: cefEPime HCl 2 GM in 0.9 % Sodium Chloride 50 ML IV (14:19)
[2021-10-05] MEDS: vancomycin HCL 1,500 MG in 0.9 % Sodium Chloride 500 ML 333.33 MG IV (15:04)
[2021-10-05] MEDS: Metoprolol Tartrate 5 MG/5 ML VIAL IVPUSH (15:45)
[2021-10-05 15:56] LABS: Appearance Urine CLEAR; Color Urine YELLOW; Glucose Urine UA NEG (NEG); Leukocyte Esterase Urine NEG (NEG); Nitrite Urine NEG (NEG); UACC Culture Trigger NO; Urine Blood 1+ (NEG); Urine Ketones NEG (NEG); Urine Protein NEG (NEG-TRACE)
[2021-10-05 16:04] LABS: WBC Urine 0 /HPF (0-4)
--- NOTE | 2021-10-05 17:45 | PM.IMHP ---
History of Present Illness Date of Service: 10/05/21 Attending physician on admission: Alicia Koehler Chief Complaint: shortness of breath This is an 81-year-old male with multiple medical problems who presents to the emergency department with shortness of breath. He states that last evening he began having shortness of breath and dyspnea on exertion. This was associated with cough productive of daniel phlegm. He has noticed shortness of breath with ambulation as well as walking up stairs which is new from his baseline. He denies any associated fever, chills, chest pain, palpitations. In the emergency department he was noted to be in atrial fibrillation with rapid ventricular response. He received dose of IV Lopressor but heart rate continue to be elevated. BNP was elevated at 1366 and he received a dose of IV Lasix. CT scan of the chest showed moderate left pleural effusion as well as chronic lung changes. Patient was also treated with IV antibiotics and breathing treatments. Patient reports increasing lower extremity edema as well as a 4-6 lb weight gain in the past 1 week. He has significant fluid intake reporting 2-3 cups of coffee in the morning followed by a 12 oz beverage, 15:00 has another cup of coffee and then 2 more 16 oz beverages at night. He also has history of lung cancer which has returned, he is supposed to have follow up appointment with oncology next week to determine treatment options. vaccination status: has been vaccinated x 3 but can't remember which vaccine he received Review of Systems Review of Systems: Yes all other systems are reviewed and are negative Constitutional: Constitutional: Denies chills and Denies fever(s) Cardiovascular: Cardiovascular: Denies chest pain, Denies palpitations, Reports dyspnea and Reports dyspnea on exertion Respiratory: Respiratory: Reports cough, Reports dyspnea and Reports dyspnea on exertion Gastrointestinal: Gastrointestinal: Denies abdominal pain, Denies diarrhea, Denies nausea and Denies vomiting Endocrine: Endocrine: Denies palpitations [facility] Medical History Anemia Back pain Benign essential hypertension Bilateral lower extremity edema CAD (coronary artery disease) Cancer of upper lobe of right lung (~2013) Chronic atrial fibrillation Congestive heart failure COPD (chronic obstructive pulmonary disease) Gout Heart failure with reduced ejection fraction HLD (hyperlipidemia) Lumbar degenerative disc disease Neuropathy Osteoarthritis Osteoarthritis of knees, bilateral PAD (peripheral artery disease) Physical deconditioning Recurrent non-small cell lung cancer Smoker Type 2 diabetes mellitus with other diabetic kidney complication Vitamin D deficiency Wears dentures Family History Mother No problems noted. Surgical History History of angioplasty (~12/2020) History of back surgery History of brain surgery (~2003) History of bronchoscopy (~2020) History of cardiac cath (~02/2016) History of colonoscopy (~01/2001) History of lung surgery (~07/2013) History of lung surgery (~2019) History of partial colectomy (~01/2001) History of right knee surgery (~09/2005) History of thoracentesis (~09/2019) Social History Household Members: None [facility] Are you a primary post acute care nurse to a significant other at home: No Do you presently have visiting nurse or other home services: No Alcohol intake: never Patient Tobacco Use Status: Current everyday Tobacco user Tobacco use type: Cigarette Cigarette Packs Per Day: 0.5 Cigarettes Per Day: 10 Years Smoked: 50 Second Hand Smoke Exposure: No Use of substances other than those prescribed or required for medical reasons: No Advance Directives: Yes Advance Directives Information Provided: Yes Advance Directives on File: No Advance Directives Date on File: 11/29/20 service: No Current occupational status: retired Cognitive needs: No Hearing needs: No Vision needs: Yes Meds Allergies Allergy/AdvReac Type Severity Reaction Status Date / Time No Known Allergies Allergy Unknown UNKNOWN Verified 10/04/21 10:14 [NO KNOWN ALLERGIES] Active Medications: Current Medications Acetaminophen (Acetaminophen 325 Mg Tablet) 650 mg PO Q6H PRN PRN Reason: Pain, Mild (Pain Scale 1-3) Albuterol Sulfate (Albuterol Sulfate 90 Mcg 8 Gm Inhaler) 2 puff INHALE Q6H PRN PRN Reason: shortness of breath or wheezing Atorvastatin Calcium (Atorvastatin Calcium 40 Mg Tablet) 40 mg PO BEDTIME RADHA Docusate Sodium (Docusate Sodium 100 Mg Capsule) 100 mg PO DAILY PRN PRN Reason: Constipation Folic Acid (Folic Acid 1 Mg Tablet) 1 mg PO DAILY RADHA Furosemide (Furosemide 40 Mg/4 Ml Vial) 40 mg IVPUSH BID@0900,1800 [facility]; Protocol Ceftriaxone Sodium 1 gm/ (Sodium Chloride) 50 mls @ 100 mls/hr IV Q24H RADHA Doxycycline Hyclate 100 mg/ (Sodium Chloride) 250 mls @ 166.67 mls/hr IV Q12H [facility] Metoprolol Tartrate (Metoprolol Tartrate 25 Mg Tablet) 25 mg PO Q6H [facility]; Protocol Multivitamins/Vitamin C (Multivitamin Tablet) 1 tab PO DAILY [facility] Nicotine (Nicotine 14 Mg Patch.Td24) mg TRANSDERMA DAILY@1500 RADHA Non-Formulary Medication (Iron) 75 mg PO DAILY@1500 [facility] Ondansetron HCl (Ondansetron Hcl 4 Mg/2 Ml Vial) 4 mg IVPUSH Q8H PRN PRN Reason: Nausea and Vomiting Pharmacy Consult (Consult Rx Vancomycin Dosing) 1 each MISCELLANE DAILY PRN PRN Reason: Consult order Pharmacy Consult (Consult Rx Perform Med Rec) 1 each MISCELLANE ONCE PRN PRN Reason: Consult order Sodium Chloride (0.9 % Sodium Chloride Flush 3 Ml Syringe) 3 ml IVFLUSH QSHIFT [facility] Valsartan (Valsartan 40 Mg Tablet) 40 mg PO ONCE [facility]; Protocol Warfarin Sodium (Warfarin Sodium 2 Mg Tablet) 2 mg PO MOSA@1800 RADHA Warfarin Sodium (Warfarin Sodium 1 Mg Tablet) 1 mg PO SUTUWETHFR@1800 [facility] Home Medications Medication Instructions Recorded Confirmed Last Taken Type calcium carbonate 600 mg-vitamin 1 tab PO DAILY 07/10/20 10/05/21 10/05/21 History D3 5 mcg (200 unit) tablet multivitamin 1 tab PO DAILY 07/10/20 10/05/21 10/05/21 History nicotine 14 mg/24 hr daily 1 patch TRANSDERMAL DAILY@1500 07/10/20 10/05/21 10/04/21 History transdermal patch warfarin 1 mg tablet 1 mg PO SUTUWETHFR@1800 tab 07/20/21 10/05/21 10/04/21 History aspirin 81 mg tablet,delayed 81 mg PO DAILY@1500 09/22/21 10/05/21 10/04/21 History release (Adult Low Dose Aspirin) febuxostat 40 mg tablet 40 mg PO DAILY 09/22/21 10/05/21 10/05/21 History furosemide 40 mg tablet 40 mg PO DAILY 09/22/21 10/05/21 10/05/21 History valsartan 40 mg tablet 40 mg PO DAILY tab 09/22/21 10/05/21 10/05/21 History atorvastatin 40 mg tablet 1 tab PO BEDTIME 10/05/21 10/05/21 10/04/21 History iron 75 mg PO DAILY@1500 10/05/21 10/05/21 10/04/21 History potassium chloride 20 mEq 1 tab PO DAILY 10/05/21 10/05/21 10/05/21 History tablet,extended release(part/cryst) triamcinolone acetonide 0.1 % 1 appl TOPICAL BID-TID PRN 10/05/21 10/05/21 10/04/21 History topical cream warfarin 1 mg tablet (Jantoven) 2 mg PO MOSA@1800 10/05/21 10/05/21 10/04/21 History Physical Exam Vital Signs and Narrative: Vital Signs: Last Vital Signs Temp 98.4 F 10/05/21 14:22 Pulse 127 H 10/05/21 15:45 Resp 22 H 10/05/21 15:45 BP 129/82 10/05/21 15:45 Pulse Ox 100 10/05/21 15:45 BMI result Body Mass Index 20.5 Const: General: cooperative, comfortable, alert and awake Nutritional Appearance: thin Orientation/consciousness: patient oriented x3 Resp: Other: dim left side; rhonchi Effort & Inspection: normal respiratory effort, able to speak in complete sentences and no use of accessory muscles Auscultation: no rales Cardio: Rate: tachycardic Rhythm: abnormal rhythm (irregular) GI: Inspection: No distended Palpation (GI): Soft to palpation Neuro: General: patient oriented x3 Extrem: Other: b/l pitting edema Results Labs CBC and Chem 7: 10/05/21 12:40 10/05/21 12:40 Labs: Laboratory Results - last 24 hr 10/05/21 10/05/21 10/05/21 12:39 12:39 12:39 MCV MCH MCHC RDW Plt Count MPV Immature Gran % (Auto) Neut % (Auto) Lymph % (Auto) Benson % (Auto) Eos % (Auto) Baso % (Auto) Lymph # (Auto) Benson # (Auto) Eos # (Auto) Baso # (Auto) Abs Immat Gran (auto) Absolute Neuts (auto) Absolute Nucleated RBC Nucleated RBC % (auto) PT INR APTT Anion Gap Estim Creat Clear Calc Estimated GFR Random Glucose Lactic Acid 1.5 Calcium Magnesium Total Bilirubin Direct Bilirubin AST ALT Alkaline Phosphatase Troponin I High Sens B-Natriuretic Peptide 1366 H Total Protein Albumin Procalcitonin Urine Color Urine Appearance Urine pH Ur Specific [place] Urine Protein Urine Glucose (UA) Urine Ketones Urine Blood Urine Nitrite Ur Leukocyte Esterase Urine RBC Urine WBC Ur Squamous Epith Cells Urine Bacteria COVID-19 (DAMASO) COVID-19 Clin Com Influenza Type A (JLUIS) Negative Influenza Type B (JLUIS) Negative Influenza A & B Note See Note 10/05/21 10/05/21 10/05/21 12:39 12:40 12:40 MCV 99.2 H MCH 31.4 MCHC 31.6 RDW 20.9 H Plt Count 137 L MPV 12.3 Immature Gran % (Auto) 0.2 Neut % (Auto) 65.6 Lymph % (Auto) 20.0 Benson % (Auto) 11.6 H Eos % (Auto) 1.4 Baso % (Auto) 1.2 Lymph # (Auto) 0.8 L Benson # (Auto) 0.5 Eos # (Auto) 0.1 Baso # (Auto) 0.1 Abs Immat Gran (auto) 0.01 Absolute Neuts (auto) 2.7 Absolute Nucleated RBC 0.000 Nucleated RBC % (auto) 0.0 PT 30.3 H INR 2.6 H APTT 47.4 H Anion Gap 14 Estim Creat Clear Calc 48.3 Estimated GFR 57 Random Glucose 101 Lactic Acid Calcium 9.5 D Magnesium 2.2 Total Bilirubin 1.1 H Direct Bilirubin 0.5 AST 29 D ALT 23 Alkaline Phosphatase 88 Troponin I High Sens B-Natriuretic Peptide Total Protein 6.3 L Albumin 3.6 Procalcitonin Urine Color Urine Appearance Urine pH Ur Specific [place] Urine Protein Urine Glucose (UA) Urine Ketones Urine Blood Urine Nitrite Ur Leukocyte Esterase Urine RBC Urine WBC Ur Squamous Epith Cells Urine Bacteria COVID-19 (DAMASO) COVID-19 Clin Com Influenza Type A (JLUIS) Influenza Type B (JLUIS) Influenza A & B Note 10/05/21 10/05/21 10/05/21 12:40 12:40 12:40 MCV MCH MCHC RDW Plt Count MPV Immature Gran % (Auto) Neut % (Auto) Lymph % (Auto) Benson % (Auto) Eos % (Auto) Baso % (Auto) Lymph # (Auto) Benson # (Auto) Eos # (Auto) Baso # (Auto) Abs Immat Gran (auto) Absolute Neuts (auto) Absolute Nucleated RBC Nucleated RBC % (auto) PT INR APTT Anion Gap Estim Creat Clear Calc Estimated GFR Random Glucose Lactic Acid Calcium Magnesium Total Bilirubin Direct Bilirubin AST ALT Alkaline Phosphatase Troponin I High Sens 12.4 B-Natriuretic Peptide Total Protein Albumin Procalcitonin 0.10 Urine Color Urine Appearance Urine pH Ur Specific [place] Urine Protein Urine Glucose (UA) Urine Ketones Urine Blood Urine Nitrite Ur Leukocyte Esterase Urine RBC Urine WBC Ur Squamous Epith Cells Urine Bacteria COVID-19 (DAMASO) Negative COVID-19 Clin Com See Note Influenza Type A (JLUIS) Influenza Type B (JLUIS) Influenza A & B Note 10/05/21 15:51 MCV MCH MCHC RDW Plt Count MPV Immature Gran % (Auto) Neut % (Auto) Lymph % (Auto) Benson % (Auto) Eos % (Auto) Baso % (Auto) Lymph # (Auto) Benson # (Auto) Eos # (Auto) Baso # (Auto) Abs Immat Gran (auto) Absolute Neuts (auto) Absolute Nucleated RBC Nucleated RBC % (auto) PT INR APTT Anion Gap Estim Creat Clear Calc Estimated GFR Random Glucose Lactic Acid Calcium Magnesium Total Bilirubin Direct Bilirubin AST ALT Alkaline Phosphatase Troponin I High Sens B-Natriuretic Peptide Total Protein Albumin Procalcitonin Urine Color YELLOW Urine Appearance CLEAR Urine pH 6.0 Ur Specific [place] 1.010 Urine Protein NEG Urine Glucose (UA) NEG Urine Ketones NEG Urine Blood 1+ H Urine Nitrite NEG Ur Leukocyte Esterase NEG Urine RBC 5-9 H Urine WBC 0 Ur Squamous Epith Cells NONE Urine Bacteria NONE COVID-19 (DAMASO) COVID-19 Clin Com Influenza Type A (JLUIS) Influenza Type B (JLUIS) Influenza A & B Note Imaging Radiologist's Impressions: Impressions Chest X-Ray 10/05/21 12:30 IMPRESSION: Question loculated lateral pneumothorax versus overlap of structures which could be related to sheets or skin folds in patient with some bullae being present. Some interstitial markings which have increased which may be related to pulmonary vascular congestion in this patient with mild cardiomegaly. Increase in left lower lobe density which may be related to atelectasis or pneumonitis. Chest CT 10/05/21 14:40 IMPRESSION: 1. Moderate left pleural effusion. No pneumothorax. 2. Suture line in the right upper lung. Soft tissue thickening/nodularity along this area, with increase in size of the nodule at the right apex which was previously seen to be FDG avid. 3. Persistent mediastinal lymphadenopathy. 4. Moderate emphysema. Fleischner guidelines were followed. Assessment and Plan (1) Atrial fibrillation with RVR: Status: Acute (2) Pleural effusion on left: Status: Acute (3) Recurrent non-small cell lung cancer: Status: Acute (4) Acute CHF: Status: Acute Plan This is an 81-year-old male with history of COPD, HFpEF, atrial fibrillation on Coumadin, NSMLC, PAD, CAD, HLD, OA, HTN, h/o GIB who presents to the emergency department with shortness of breath found to have left pleural effusion and AFib with RVR Chronic Atrial fibrillation with RVR Received 5 mg IV Lopressor in ED, patient persistently tachycardic digoxin d/c on last admit due to sinus pauses -will start scheduled Lopressor p.o. -continue anticoagulation with Coumadin, INR 2.6 -follow INR daily -cardiology consultation pending Acute on chronic HFpEF echo from 06/26 showing preserved ejection fraction BNP significantly elevated from baseline -continue lopressor, diovan -IV Lasix b.i.d. -follow in's and out's; low-sodium diet -cardiology consult Left-sided pleural effusion Secondary to CHF versus malignant due to underlying lung cancer Will start with diuresis, if no improvement will consider thoracentesis Acute COPD exacerbation/possible bronchitis -IV ceftriaxone/doxycycline -scheduled, prn breathing treatments -po prednisone Anemia H/H above baseline on iron supplementation at home Tobacco dependence Smoking cessation advised -NRT NSCLC outpatient follow up HLD continue statin CAD/PAD continue statin, ASA tachycardia secondary to rapid afib, not sepsis dvt ppx - coumadin code status - full code HCP - rashid Perez Attending - dr. koehler Given atrial fibrillation with rapid ventricular response, acute CHF requiring IV Lasix, left-sided pleural effusion which may need thoracentesis and acute COPD exacerbation patient will likely need at least 2 midnight stay in the hospital for further management and workup. Quality Stroke Does the patient have a stroke diagnosis?: No VTE Prior VTE?: No VTE Risk Level:: Medical - moderate - high VTE Device Contraindication: N/A - Device Ordered VTE Drug Contraindication: Treatment Not Indicated
[2021-10-05] MEDS: predniSONE 20 MG TABLET 40 MG PO (18:49)
[2021-10-05] MEDS: Metoprolol Tartrate 25 MG TABLET PO ×2 (18:49→23:31)
[2021-10-05] MEDS: Furosemide 40 MG/4 ML VIAL IVPUSH (20:24)
[2021-10-05] MEDS: Atorvastatin Calcium 40 MG TABLET PO (20:25)
[2021-10-05] MEDS: Doxycycline Hyclate 100 MG in 0.9 % Sodium Chloride 250 ML 166.67 MG IV (20:26)
--- NOTE | 2021-10-05 20:28 | PM.EVENT ---
Event Note Date of Service: 10/05/21 Event Note: patient is seen and examined with apc labs,imaging .ekg reviewed afib hr running 100-110 sob seems slightly better with lasix and antibiotics physical exam and asssesment and plan coodinated in h&p. continue chf/copd maanegement hold warfarin -may need pleural tap
[2021-10-05] MEDS: cefTRIAXone sodium 1 GM in 0.9 % Sodium Chloride 50 ML IV (22:49)
[2021-10-05] MEDS: 0.9 % Sodium Chloride Flush 3 ML SYRINGE IVFLUSH (22:55)
[2021-10-06] VITALS (12 sets, daily range): BP systolic 94–153; BP diastolic 50–106; PULSE 112–135; RESP 14–30; TEMP 36.1–37.1; O2SAT 94–98
[2021-10-06 06:02] LABS: MANUAL DIFF FLAG NO
[2021-10-06] MEDS: Metoprolol Tartrate 25 MG TABLET PO (06:04)
[2021-10-06] MEDS: Doxycycline Hyclate 100 MG in 0.9 % Sodium Chloride 250 ML 166.67 MG IV ×2 (06:06→17:35)
[2021-10-06 06:10] LABS: Basophils Percent Auto 0.3 % (0-2); Eosinophils Percent Auto 0.3 % (0-4); Hematocrit 37.2 % (42.0-52.0); Imm Gran Abs Auto 0.01 X10*3/uL (0.00-0.03); Imm Gran Pct Auto 0.3 % (0.0-0.4); Lymphocytes Absolute Auto 0.4 X10*3/uL (1.2-4.9); Lymphocytes Percent Auto 11.3 % (20-40); Mean Corpuscular HGB Conc 32.3 g/dl (31.0-36.0); Mean Corpuscular Hemoglobin 31.7 pg (27.0-33.0); Mean Corpuscular Volume 98.4 fL (80.0-98.0); Mean Platelet Volume 12.7 fL (9.4-12.4); Monocytes Absolute Auto 0.1 X10*3/uL (0.1-1.2); Monocytes Percent Auto 2.7 % (2-11); Neutrophils Absolute Auto 2.8 x10*3/uL (2.0-8.3); Neutrophils Percent Auto 85.1 % (45-73); Platelet Count 127 X10*3/uL (160-400); Red Blood Count 3.78 X10*6/uL (4.60-5.80); Red Cell Distribution Width 20.8 % (11.0-16.0); White Blood Count 3.3 X10*3/uL (4.8-10.8)
[2021-10-06 06:12] LABS: INTERNATIONAL NORM RATIO 2.3 (0.9-1.1); Prothrombin Time 27.2 SEC (9.9-13.0)
[2021-10-06] MEDS: Albuterol/Iprat 2.5/0.5MG 3 ML AMPUL.NEB INHALE ×3 (06:23→20:55)
[2021-10-06 06:25] LABS: B Type Natriuretic Peptide 1747 pg/mL (<100)
[2021-10-06 06:43] LABS: Anion Gap 14 (12-20); Blood Urea Nitrogen 37 mg/dL (9-16); Calcium 9.1 mg/dL (8.4-10.2); Carbon Dioxide 32 mmol/L (22-29); Chloride 103 mmol/L (96-108); Creatinine Clr Calc Pharmacy 49.4; Estimated Glomerular Filt Rate 59; Glucose Random 151 mg/dL (60-115); Potassium 4.5 mmol/L (3.3-5.1); Sodium 144 mmol/L (135-145)
[2021-10-06] MEDS: Furosemide 40 MG/4 ML VIAL 60 MG IVPUSH (07:54)
[2021-10-06] MEDS: Multivitamin TABLET 1 TAB PO (07:54)
[2021-10-06] MEDS: Folic Acid 1 MG TABLET PO (07:54)
[2021-10-06] MEDS: 0.9 % Sodium Chloride Flush 3 ML SYRINGE IVFLUSH ×3 (07:55→19:38)
[2021-10-06] MEDS: Metoprolol Tartrate 5 MG/5 ML VIAL IVPUSH (07:55)
[2021-10-06] MEDS: Valsartan 40 MG TABLET PO (07:55)
[2021-10-06] MEDS: predniSONE 20 MG TABLET 40 MG PO (07:55)
[2021-10-06] MEDS: Nicotine 14 MG PATCH.TD24 TRANSDERMA (08:13)
[2021-10-06] MEDS: guaiFENesin LA 600 MG TAB.ER.12H PO ×2 (10:02→19:38)
[2021-10-06] MEDS: Benzonatate 100 MG CAPSULE PO ×2 (10:02→19:38)
--- NOTE | 2021-10-06 10:28 | HO.PM.IMPN ---
Subjective Subjective Date of Service: 10/06/21 Interval History: seen and examined this morning follow up for CHF, rapid afib still with elevated HR. pt reports some SOB but mostly lots of coughing. Has trouble catching his breathing during coughing fit. no chest pain, no palpitations Review of Systems Review of Systems: Yes all other systems are reviewed and are negative Constitutional Constitutional: Denies chills and Denies fever(s) Cardiovascular Cardiovascular: Denies chest pain, Denies palpitations and Reports dyspnea Respiratory Respiratory: Reports cough and Reports dyspnea Gastrointestinal Gastrointestinal: Denies abdominal pain, Denies nausea and Denies vomiting Endocrine Endocrine: Denies palpitations Physical Exam Vital Signs: Vital Signs: Last Vital Signs Temp 98.0 F 10/06/21 08:00 Pulse 113 H 10/06/21 08:00 Resp 30 H 10/06/21 08:00 BP 130/78 10/06/21 08:00 Pulse Ox 94 10/06/21 08:00 BMI result Body Mass Index 20.5 Const: General: cooperative, comfortable, alert and awake Nutritional Appearance: thin Orientation/consciousness: patient oriented x3 Resp: Other: dim left side; rhonchi Effort & Inspection: normal respiratory effort, able to speak in complete sentences, tachypneic and no use of accessory muscles Auscultation: no rales Cardio: Rate: tachycardic Rhythm: abnormal rhythm (irregular) GI: Inspection: No distended Palpation (GI): Soft to palpation Neuro: General: patient oriented x3 Extrem: Other: b/l pitting edema Objective Data Active Medications Acetaminophen (Acetaminophen 325 Mg Tablet) 650 mg PO Q6H PRN PRN Reason: Pain, Mild (Pain Scale 1-3) Albuterol Sulfate (Albuterol Sulfate 90 Mcg 8 Gm Inhaler) 2 puff INHALE Q6H PRN PRN Reason: shortness of breath or wheezing Albuterol/Ipratropium (Albuterol/Iprat 2.5/0.5mg 3 Ml Ampul.Neb) 3 ml INHALE RQ6H WHILE AWAKE [facility] Last Admin: 10/06/21 06:23 Dose: 3 ml Documented by: ETTA Aspirin (Aspirin Enteric Coated 81 Mg Tablet.) 81 mg PO DAILY@1500 RADHA Atorvastatin Calcium (Atorvastatin Calcium 40 Mg Tablet) 40 mg PO BEDTIME [facility] Last Admin: 10/05/21 20:25 Dose: 40 mg Documented by: ZAK-PARRC Benzonatate (Benzonatate 100 Mg Capsule) 100 mg PO TID PRN PRN Reason: Cough Last Admin: 10/06/21 10:02 Dose: 100 mg Documented by: THU Docusate Sodium (Docusate Sodium 100 Mg Capsule) 100 mg PO DAILY PRN PRN Reason: Constipation Ferrous Sulfate (Ferrous Sulfate 324 Mg Tablet.Dr) 324 mg PO DAILY@1500 RADHA Folic Acid (Folic Acid 1 Mg Tablet) 1 mg PO DAILY [facility] Last Admin: 10/06/21 07:54 Dose: 1 mg Documented by: THU Furosemide (Furosemide 40 Mg/4 Ml Vial) 60 mg IVPUSH BID@0900,1800 [facility]; Protocol Last Admin: 10/06/21 07:54 Dose: 60 mg Documented by: THU Guaifenesin (Guaifenesin La 600 Mg Tab.Er.12h) 600 mg PO BID [facility] Last Admin: 10/06/21 10:02 Dose: 600 mg Documented by: THU Ceftriaxone Sodium 1 gm/ (Sodium Chloride) 50 mls @ 100 mls/hr IV Q24H [facility] Last Infusion: 10/05/21 23:26 Dose: 0 mls/hr Documented by: THU Doxycycline Hyclate 100 mg/ (Sodium Chloride) 250 mls @ 166.67 mls/hr IV Q12H [facility] Last Infusion: 10/06/21 07:38 Dose: 0 mls/hr Documented by: THU Metoprolol Tartrate (Metoprolol Tartrate 25 Mg Tablet) 25 mg PO Q6H [facility]; Protocol Last Admin: 10/06/21 06:04 Dose: 25 mg Documented by: THU Comments: ZP=762/79 H=119 Multivitamins/Vitamin C (Multivitamin Tablet) 1 tab PO DAILY [facility] Last Admin: 10/06/21 07:54 Dose: 1 tab Documented by: THU Nicotine (Nicotine 14 Mg Patch.Td24) 14 mg TRANSDERMA DAILY [facility] Last Admin: 10/06/21 08:13 Dose: 14 mg Documented by: THU Ondansetron HCl (Ondansetron Hcl 4 Mg/2 Ml Vial) 4 mg IVPUSH Q8H PRN PRN Reason: Nausea and Vomiting Pharmacy Consult (Consult Rx Vancomycin Dosing) 1 each MISCELLANE DAILY PRN PRN Reason: Consult order Pharmacy Consult (Consult Rx Perform Med Rec) 1 each MISCELLANE ONCE PRN PRN Reason: Consult order Prednisone (Prednisone 20 Mg Tablet) 40 mg PO DAILY [facility] Last Admin: 10/06/21 07:55 Dose: 40 mg Documented by: THU Sodium Chloride (0.9 % Sodium Chloride Flush 3 Ml Syringe) 3 ml IVFLUSH QSHIFT [facility] Last Admin: 10/06/21 07:55 Dose: 3 ml Documented by: THU Valsartan (Valsartan 40 Mg Tablet) 40 mg PO DAILY [facility]; Protocol Last Admin: 10/06/21 07:55 Dose: 40 mg Documented by: THU Warfarin Sodium (Warfarin Sodium 2 Mg Tablet) 2 mg PO MOSA@1800 RADHA Warfarin Sodium (Warfarin Sodium 1 Mg Tablet) 1 mg PO SUTUWETHFR@1800 [facility] Labs CBC & Chem 7: 10/06/21 05:36 10/06/21 05:36 Labs: Laboratory Results - last 24 hr 10/05/21 10/05/21 10/05/21 12:39 12:39 12:39 MCV MCH MCHC RDW Plt Count MPV Immature Gran % (Auto) Neut % (Auto) Lymph % (Auto) Wolfe % (Auto) Eos % (Auto) Baso % (Auto) Lymph # (Auto) Wolfe # (Auto) Eos # (Auto) Baso # (Auto) Abs Immat Gran (auto) Absolute Neuts (auto) Absolute Nucleated RBC Nucleated RBC % (auto) PT INR APTT Anion Gap Estim Creat Clear Calc Estimated GFR Random Glucose Lactic Acid 1.5 Calcium Magnesium Total Bilirubin Direct Bilirubin AST ALT Alkaline Phosphatase Troponin I High Sens B-Natriuretic Peptide 1366 H Total Protein Albumin Procalcitonin Urine Color Urine Appearance Urine pH Ur Specific [place] Urine Protein Urine Glucose (UA) Urine Ketones Urine Blood Urine Nitrite Ur Leukocyte Esterase Urine RBC Urine WBC Ur Squamous Epith Cells Urine Bacteria COVID-19 (DAMASO) COVID-19 Clin Com Influenza Type A (JLUIS) Negative Influenza Type B (JLUIS) Negative Influenza A & B Note See Note 10/05/21 10/05/21 10/05/21 12:39 12:40 12:40 MCV 99.2 H MCH 31.4 MCHC 31.6 RDW 20.9 H Plt Count 137 L MPV 12.3 Immature Gran % (Auto) 0.2 Neut % (Auto) 65.6 Lymph % (Auto) 20.0 Wolfe % (Auto) 11.6 H Eos % (Auto) 1.4 Baso % (Auto) 1.2 Lymph # (Auto) 0.8 L Wolfe # (Auto) 0.5 Eos # (Auto) 0.1 Baso # (Auto) 0.1 Abs Immat Gran (auto) 0.01 Absolute Neuts (auto) 2.7 Absolute Nucleated RBC 0.000 Nucleated RBC % (auto) 0.0 PT 30.3 H INR 2.6 H APTT 47.4 H Anion Gap 14 Estim Creat Clear Calc 48.3 Estimated GFR 57 Random Glucose 101 Lactic Acid Calcium 9.5 D Magnesium 2.2 Total Bilirubin 1.1 H Direct Bilirubin 0.5 AST 29 D ALT 23 Alkaline Phosphatase 88 Troponin I High Sens B-Natriuretic Peptide Total Protein 6.3 L Albumin 3.6 Procalcitonin Urine Color Urine Appearance Urine pH Ur Specific [place] Urine Protein Urine Glucose (UA) Urine Ketones Urine Blood Urine Nitrite Ur Leukocyte Esterase Urine RBC Urine WBC Ur Squamous Epith Cells Urine Bacteria COVID-19 (DAMASO) COVID-19 Clin Com Influenza Type A (JLUIS) Influenza Type B (JLUIS) Influenza A & B Note 10/05/21 10/05/21 10/05/21 12:40 12:40 12:40 MCV MCH MCHC RDW Plt Count MPV Immature Gran % (Auto) Neut % (Auto) Lymph % (Auto) Wolfe % (Auto) Eos % (Auto) Baso % (Auto) Lymph # (Auto) Wolfe # (Auto) Eos # (Auto) Baso # (Auto) Abs Immat Gran (auto) Absolute Neuts (auto) Absolute Nucleated RBC Nucleated RBC % (auto) PT INR APTT Anion Gap Estim Creat Clear Calc Estimated GFR Random Glucose Lactic Acid Calcium Magnesium Total Bilirubin Direct Bilirubin AST ALT Alkaline Phosphatase Troponin I High Sens 12.4 B-Natriuretic Peptide Total Protein Albumin Procalcitonin 0.10 Urine Color Urine Appearance Urine pH Ur Specific [place] Urine Protein Urine Glucose (UA) Urine Ketones Urine Blood Urine Nitrite Ur Leukocyte Esterase Urine RBC Urine WBC Ur Squamous Epith Cells Urine Bacteria COVID-19 (DAMASO) Negative COVID-19 Clin Com See Note Influenza Type A (JLUIS) Influenza Type B (JLUIS) Influenza A & B Note 10/05/21 10/06/21 10/06/21 15:51 05:36 05:36 MCV 98.4 H MCH 31.7 MCHC 32.3 RDW 20.8 H Plt Count 127 L MPV 12.7 H Immature Gran % (Auto) 0.3 Neut % (Auto) 85.1 H Lymph % (Auto) 11.3 L Wolfe % (Auto) 2.7 Eos % (Auto) 0.3 Baso % (Auto) 0.3 Lymph # (Auto) 0.4 L Wolfe # (Auto) 0.1 Eos # (Auto) 0.0 Baso # (Auto) 0.0 Abs Immat Gran (auto) 0.01 Absolute Neuts (auto) 2.8 Absolute Nucleated RBC 0.000 Nucleated RBC % (auto) 0.0 PT 27.2 H INR 2.3 H APTT Anion Gap Estim Creat Clear Calc Estimated GFR Random Glucose Lactic Acid Calcium Magnesium Total Bilirubin Direct Bilirubin AST ALT Alkaline Phosphatase Troponin I High Sens B-Natriuretic Peptide Total Protein Albumin Procalcitonin Urine Color YELLOW Urine Appearance CLEAR Urine pH 6.0 Ur Specific [place] 1.010 Urine Protein NEG Urine Glucose (UA) NEG Urine Ketones NEG Urine Blood 1+ H Urine Nitrite NEG Ur Leukocyte Esterase NEG Urine RBC 5-9 H Urine WBC 0 Ur Squamous Epith Cells NONE Urine Bacteria NONE COVID-19 (DAMASO) COVID-19 Clin Com Influenza Type A (JLUIS) Influenza Type B (JLUIS) Influenza A & B Note 10/06/21 10/06/21 05:36 05:36 MCV MCH MCHC RDW Plt Count MPV Immature Gran % (Auto) Neut % (Auto) Lymph % (Auto) Wolfe % (Auto) Eos % (Auto) Baso % (Auto) Lymph # (Auto) Wolfe # (Auto) Eos # (Auto) Baso # (Auto) Abs Immat Gran (auto) Absolute Neuts (auto) Absolute Nucleated RBC Nucleated RBC % (auto) PT INR APTT Anion Gap 14 Estim Creat Clear Calc 49.4 Estimated GFR 59 Random Glucose 151 H D Lactic Acid Calcium 9.1 Magnesium Total Bilirubin Direct Bilirubin AST ALT Alkaline Phosphatase Troponin I High Sens B-Natriuretic Peptide 1747 H Total Protein Albumin Procalcitonin Urine Color Urine Appearance Urine pH Ur Specific [place] Urine Protein Urine Glucose (UA) Urine Ketones Urine Blood Urine Nitrite Ur Leukocyte Esterase Urine RBC Urine WBC Ur Squamous Epith Cells Urine Bacteria COVID-19 (ADMASO) COVID-19 Clin Com Influenza Type A (JLUIS) Influenza Type B (JLUIS) Influenza A & B Note Assessment and Plan (1) Acute CHF: Status: Acute (2) Atrial fibrillation with RVR: Status: Acute Plan This is an 81-year-old male with history of COPD, HFpEF, atrial fibrillation on Coumadin, NSMLC, PAD, CAD, HLD, OA, HTN, h/o GIB who presents to the emergency department with shortness of breath found to have left pleural effusion and AFib with RVR Chronic Atrial fibrillation with RVR HR uncontrolled digoxin d/c on last admit due to sinus pauses -change BB dosing to toprol xl 50 daily and 25 qhs -start digoxin per cardiology rec -hold Coumadin due to possible need for thoracentesis -cardiology following Acute on chronic HFpEF echo from 06/26 showing preserved ejection fraction BNP significantly elevated from baseline -continue lopressorzachvan -IV Lasix b.i.d. -follow in's and out's; low-sodium diet -cardiology following Left-sided pleural effusion Secondary to CHF versus malignant due to underlying lung cancer Will start with diuresis, if no improvement will consider thoracentesis INR 2.3 Acute COPD exacerbation/possible bronchitis still with frequent coughing episodes -IV ceftriaxone/doxycycline -scheduled, prn breathing treatments -po prednisone -mucinex, tessalon for symptomatic treatment Anemia H/H above baseline on iron supplementation at home Tobacco dependence Smoking cessation advised -NRT NSCLC outpatient follow up HLD continue statin HTN BP controlled continue valsartan, metoprolol CAD/PAD continue statin, ASA tachycardia secondary to rapid afib, not sepsis dvt ppx - coumadin code status - full code HCP - rashid Perez Attending - dr. Chapin Pt requires ongoing inpatient hospitalization due to atrial fibrillation with rapid ventricular response HR still uncontrolled, acute CHF requiring IV Lasix, left-sided pleural effusion which may need thoracentesis and acute COPD exacerbation Quality Stroke Does the patient have a stroke diagnosis?: No VTE Prior VTE?: No VTE Risk Level:: Medical - moderate - high VTE Device Contraindication: N/A - Device Ordered VTE Drug Contraindication: Treatment Not Indicated
--- NOTE | 2021-10-06 13:04 | P.CONCA_ITS ---
History of Present Illness History of Present Illness Date of Service: 10/06/21 Requesting physician: Keira Blunt Consult reason: atrial fibrillation and congestive heart failure Chief complaint: afib RVR, CHF, pleural effusion Narrative: I was consulted to see Scottie in cardiology consultation today for development of congestive heart failure respiratory failure with atrial fibrillation rapid ventricular response. He is a complicated patient with multiple medical problems and recent time has had deterioration is overall health due to lung malignancy. He also has advanced COPD as well as heart failure which has been difficult control with prior history of cardiomyopathy which by most recent echocardiogram in June had normalized with rate control. He also has chronic atrial fibrillation with significant left atrial enlargement with difficult to control rate and with prior history of bradycardia. More recently his digoxin was withheld due to bradycardia. He comes to the hospital with progressive increased shortness of breath with leg edema consistent with congestive heart failure. His Lasix at home with 40 mg. He also presents with atrial fibrillation rapid ventricular response after reduction is digoxin dose. He has been given IV Lasix and says he has diuresed well although intake and output chart is lacking. His heart rate remains elevated. He continues to have significant shortness of breath and cough productive of phlegm. Denies any palpitations, lightheadedness, syncope. He has prior history of recurrent GI bleeds, however is currently back on oral anticoagulation Review of Systems Constitutional: Constitutional: Reports fatigue, Reports lethargy and Reports weakness Eyes: Eyes: Reports no additional eye complaints Cardiovascular: Cardiovascular: Denies chest pain, Reports leg edema, Denies lightheadedness, Denies Loss of Consciousness, Denies palpitations and Reports dyspnea Respiratory: Respiratory: Reports cough, Reports excessive phlegm production and Reports dyspnea Gastrointestinal: Gastrointestinal: Reports no additional gastrointestinal complaints Genitourinary: Genitourinary: Reports no additional male genitourinary complaints Musculoskeletal: Musculoskeletal: Reports no additional musculoskeletal complaints Neurologic: Reports system reviewed and no additional complaints, except as documented and Reports weakness Endocrine: Endocrine: Reports fatigue and Denies palpitations [facility] Past Medical History Medical History Anemia Back pain Benign essential hypertension Bilateral lower extremity edema CAD (coronary artery disease) Cancer of upper lobe of right lung (~2013) Chronic atrial fibrillation Congestive heart failure COPD (chronic obstructive pulmonary disease) Gout Heart failure with reduced ejection fraction HLD (hyperlipidemia) Lumbar degenerative disc disease Neuropathy Osteoarthritis Osteoarthritis of knees, bilateral PAD (peripheral artery disease) Physical deconditioning Recurrent non-small cell lung cancer Smoker Type 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 Surgical History Surgical History History of angioplasty (~12/2020) History of back surgery History of brain surgery (~2003) History of bronchoscopy (~2020) History of cardiac cath (~02/2016) History of colonoscopy (~01/2001) History of lung surgery (~07/2013) History of lung surgery (~2019) History of partial colectomy (~01/2001) History of right knee surgery (~09/2005) History of thoracentesis (~09/2019) Social History Social History Household Members: None [facility] Are you a primary memory care director to a significant other at home: No Do you presently have visiting nurse or other home services: No Alcohol intake: never Patient Tobacco Use Status: Current everyday Tobacco user Tobacco use type: Cigarette Cigarette Packs Per Day: 0.5 Cigarettes Per Day: 10 Years Smoked: 50 Second Hand Smoke Exposure: Yes Advance Directives Date on File: 10/05/21 service: No Current occupational status: retired Cognitive needs: No Hearing needs: No Vision needs: Yes Meds Allergies Allergy/AdvReac Type Severity Reaction Status Date / Time No Known Allergies Allergy Unknown UNKNOWN Verified 10/04/21 10:14 [NO KNOWN ALLERGIES] Active Medications: Current Medications Acetaminophen (Acetaminophen 325 Mg Tablet) 650 mg PO Q6H PRN PRN Reason: Pain, Mild (Pain Scale 1-3) Albuterol Sulfate (Albuterol Sulfate 90 Mcg 8 Gm Inhaler) 2 puff INHALE Q6H PRN PRN Reason: shortness of breath or wheezing Albuterol/Ipratropium (Albuterol/Iprat 2.5/0.5mg 3 Ml Ampul.Neb) 3 ml INHALE RQ6H WHILE AWAKE RADHA Last Admin: 10/06/21 06:23 Dose: 3 ml Documented by: Aspirin (Aspirin Enteric Coated 81 Mg Tablet.) 81 mg PO DAILY@1500 [facility] Atorvastatin Calcium (Atorvastatin Calcium 40 Mg Tablet) 40 mg PO BEDTIME [facility] Last Admin: 10/05/21 20:25 Dose: 40 mg Documented by: Benzonatate (Benzonatate 100 Mg Capsule) 100 mg PO TID PRN PRN Reason: Cough Last Admin: 10/06/21 10:02 Dose: 100 mg Documented by: Docusate Sodium (Docusate Sodium 100 Mg Capsule) 100 mg PO DAILY PRN PRN Reason: Constipation Ferrous Sulfate (Ferrous Sulfate 324 Mg Tablet.) 324 mg PO DAILY@1500 RADHA Folic Acid (Folic Acid 1 Mg Tablet) 1 mg PO DAILY [facility] Last Admin: 10/06/21 07:54 Dose: 1 mg Documented by: Furosemide (Furosemide 40 Mg/4 Ml Vial) 60 mg IVPUSH BID@0900,1800 [facility]; Protocol Last Admin: 10/06/21 07:54 Dose: 60 mg Documented by: Guaifenesin (Guaifenesin La 600 Mg Tab.Er.12h) 600 mg PO BID [facility] Last Admin: 10/06/21 10:02 Dose: 600 mg Documented by: Ceftriaxone Sodium 1 gm/ (Sodium Chloride) 50 mls @ 100 mls/hr IV Q24H [facility] Last Infusion: 10/05/21 23:26 Dose: Infused Documented by: Doxycycline Hyclate 100 mg/ (Sodium Chloride) 250 mls @ 166.67 mls/hr IV Q12H [facility] Last Infusion: 10/06/21 07:38 Dose: Infused Documented by: Metoprolol Succinate (Metoprolol Succinate Er 50 Mg Tab.Er.24h) 50 mg PO DAILY [facility]; Protocol Metoprolol Succinate (Metoprolol Succinate Er 25 Mg Tab.Er.24h) 25 mg PO BEDTIME [facility]; Protocol Multivitamins/Vitamin C (Multivitamin Tablet) 1 tab PO DAILY [facility] Last Admin: 10/06/21 07:54 Dose: 1 tab Documented by: Nicotine (Nicotine 14 Mg Patch.Td24) 14 mg TRANSDERMA DAILY [facility] Last Admin: 10/06/21 08:13 Dose: 14 mg Documented by: Ondansetron HCl (Ondansetron Hcl 4 Mg/2 Ml Vial) 4 mg IVPUSH Q8H PRN PRN Reason: Nausea and Vomiting Pharmacy Consult (Consult Rx Vancomycin Dosing) 1 each MISCELLANE DAILY PRN PRN Reason: Consult order Pharmacy Consult (Consult Rx Perform Med Rec) 1 each MISCELLANE ONCE PRN PRN Reason: Consult order Prednisone (Prednisone 20 Mg Tablet) 40 mg PO DAILY [facility] Last Admin: 10/06/21 07:55 Dose: 40 mg Documented by: Sodium Chloride (0.9 % Sodium Chloride Flush 3 Ml Syringe) 3 ml IVFLUSH QSHIFT [facility] Last Admin: 10/06/21 07:55 Dose: 3 ml Documented by: Valsartan (Valsartan 40 Mg Tablet) 40 mg PO DAILY [facility]; Protocol Last Admin: 10/06/21 07:55 Dose: 40 mg Documented by: Warfarin Sodium (Warfarin Sodium 2 Mg Tablet) 2 mg PO MOSA@1800 RADHA Warfarin Sodium (Warfarin Sodium 1 Mg Tablet) 1 mg PO SUTUWETHFR@1800 [facility] Home Medications Medication Instructions Recorded Confirmed Last Taken Type calcium carbonate 600 mg-vitamin 1 tab PO DAILY 07/10/20 10/05/21 10/05/21 History D3 5 mcg (200 unit) tablet multivitamin 1 tab PO DAILY 07/10/20 10/05/21 10/05/21 History nicotine 14 mg/24 hr daily 1 patch TRANSDERMAL DAILY@1500 07/10/20 10/05/21 10/04/21 History transdermal patch warfarin 1 mg tablet 1 mg PO SUTUWETHFR@1800 tab 07/20/21 10/05/21 10/04/21 History aspirin 81 mg tablet,delayed 81 mg PO DAILY@1500 09/22/21 10/05/21 10/04/21 History release (Adult Low Dose Aspirin) febuxostat 40 mg tablet 40 mg PO DAILY 09/22/21 10/05/21 10/05/21 History furosemide 40 mg tablet 40 mg PO DAILY 09/22/21 10/05/21 10/05/21 History valsartan 40 mg tablet 40 mg PO DAILY tab 09/22/21 10/05/21 10/05/21 History atorvastatin 40 mg tablet 1 tab PO BEDTIME 10/05/21 10/05/21 10/04/21 History iron 75 mg PO DAILY@1500 10/05/21 10/05/21 10/04/21 History potassium chloride 20 mEq 1 tab PO DAILY 10/05/21 10/05/21 10/05/21 History tablet,extended release(part/cryst) triamcinolone acetonide 0.1 % 1 appl TOPICAL BID-TID PRN 10/05/21 10/05/21 10/04/21 History topical cream warfarin 1 mg tablet (Jantoven) 2 mg PO MOSA@1800 10/05/21 10/05/21 10/04/21 History Physical Exam Vital Signs: Vital Signs: Last Vital Signs Temp 98.7 F 10/06/21 12:00 Pulse 122 H 10/06/21 12:00 Resp 26 H 10/06/21 12:00 BP 106/69 10/06/21 12:00 Pulse Ox 96 10/06/21 12:00 BMI result Body Mass Index 20.5 Const: General: cooperative, alert, awake and in distress mild and respiratory Nutritional Appearance: underweight Orientation/consciousness: patient oriented x3 HEENT: Head: Yes normocephalic and Yes atraumatic Neck: Neck: Yes trachea midline, Yes supple and Yes no JVD Resp: Effort & Inspection: normal respiratory effort Auscultation: no rales, wheezes and diminished lung sounds Cardio: Jugular venous distension: no JVD Rate: tachycardic Rhythm: abnormal rhythm irregularly irregular Heart sounds: S1 normal heart sound present, S2 normal heart sound present, no click, no gallops and no murmurs GI: Percussion: Yes normal to percussion Skin: General skin exam: no rashes or lesions noted and ecchymosis Neuro: General: patient oriented x3 and no focal motor deficits Extrem: General: No no clubbing, cyanosis or edema and Yes pedal edema Objective Labs and Meds Result diagrams: 10/06/21 05:36 10/06/21 05:36 Lab results: Laboratory Results - last 24 hr 10/05/21 10/05/21 10/05/21 12:39 12:39 12:40 WBC RBC Hgb Hct MCV MCH MCHC RDW Plt Count MPV Immature Gran % (Auto) Neut % (Auto) Lymph % (Auto) [place] % (Auto) Eos % (Auto) Baso % (Auto) Lymph # (Auto) [place] # (Auto) Eos # (Auto) Baso # (Auto) Abs Immat Gran (auto) Absolute Neuts (auto) Absolute Nucleated RBC Nucleated RBC % (auto) PT INR Sodium 144 Potassium 4.8 Chloride 105 Carbon Dioxide 30 H Anion Gap 14 BUN 35 H Creatinine 1.21 Estim Creat Clear Calc 48.3 Estimated GFR 57 Random Glucose 101 Calcium 9.5 D Magnesium 2.2 Total Bilirubin 1.1 H Direct Bilirubin 0.5 AST 29 D ALT 23 Alkaline Phosphatase 88 Troponin I High Sens B-Natriuretic Peptide 1366 H Total Protein 6.3 L Albumin 3.6 Procalcitonin Urine Color Urine Appearance Urine pH Ur Specific [place] Urine Protein Urine Glucose (UA) Urine Ketones Urine Blood Urine Nitrite Ur Leukocyte Esterase Urine RBC Urine WBC Ur Squamous Epith Cells Urine Bacteria COVID-19 (DAMASO) COVID-19 Clin Com Influenza Type A (JLUIS) Negative Influenza Type B (JLUIS) Negative Influenza A & B Note See Note 10/05/21 10/05/21 10/05/21 12:40 12:40 12:40 WBC RBC Hgb Hct MCV MCH MCHC RDW Plt Count MPV Immature Gran % (Auto) Neut % (Auto) Lymph % (Auto) [place] % (Auto) Eos % (Auto) Baso % (Auto) Lymph # (Auto) [place] # (Auto) Eos # (Auto) Baso # (Auto) Abs Immat Gran (auto) Absolute Neuts (auto) Absolute Nucleated RBC Nucleated RBC % (auto) PT INR Sodium Potassium Chloride Carbon Dioxide Anion Gap BUN Creatinine Estim Creat Clear Calc Estimated GFR Random Glucose Calcium Magnesium Total Bilirubin Direct Bilirubin AST ALT Alkaline Phosphatase Troponin I High Sens 12.4 B-Natriuretic Peptide Total Protein Albumin Procalcitonin 0.10 Urine Color Urine Appearance Urine pH Ur Specific [place] Urine Protein Urine Glucose (UA) Urine Ketones Urine Blood Urine Nitrite Ur Leukocyte Esterase Urine RBC Urine WBC Ur Squamous Epith Cells Urine Bacteria COVID-19 (DAMASO) Negative COVID-19 Clin Com See Note Influenza Type A (JLUIS) Influenza Type B (JLUIS) Influenza A & B Note 10/05/21 10/06/21 10/06/21 15:51 05:36 05:36 WBC 3.3 L RBC 3.78 L Hgb 12.0 L Hct 37.2 L MCV 98.4 H MCH 31.7 MCHC 32.3 RDW 20.8 H Plt Count 127 L MPV 12.7 H Immature Gran % (Auto) 0.3 Neut % (Auto) 85.1 H Lymph % (Auto) 11.3 L [place] % (Auto) 2.7 Eos % (Auto) 0.3 Baso % (Auto) 0.3 Lymph # (Auto) 0.4 L [place] # (Auto) 0.1 Eos # (Auto) 0.0 Baso # (Auto) 0.0 Abs Immat Gran (auto) 0.01 Absolute Neuts (auto) 2.8 Absolute Nucleated RBC 0.000 Nucleated RBC % (auto) 0.0 PT 27.2 H INR 2.3 H Sodium Potassium Chloride Carbon Dioxide Anion Gap BUN Creatinine Estim Creat Clear Calc Estimated GFR Random Glucose Calcium Magnesium Total Bilirubin Direct Bilirubin AST ALT Alkaline Phosphatase Troponin I High Sens B-Natriuretic Peptide Total Protein Albumin Procalcitonin Urine Color YELLOW Urine Appearance CLEAR Urine pH 6.0 Ur Specific [place] 1.010 Urine Protein NEG Urine Glucose (UA) NEG Urine Ketones NEG Urine Blood 1+ H Urine Nitrite NEG Ur Leukocyte Esterase NEG Urine RBC 5-9 H Urine WBC 0 Ur Squamous Epith Cells NONE Urine Bacteria NONE COVID-19 (DAMASO) COVID-19 Clin Com Influenza Type A (JLUIS) Influenza Type B (JLUIS) Influenza A & B Note 10/06/21 10/06/21 05:36 05:36 WBC RBC Hgb Hct MCV MCH MCHC RDW Plt Count MPV Immature Gran % (Auto) Neut % (Auto) Lymph % (Auto) [place] % (Auto) Eos % (Auto) Baso % (Auto) Lymph # (Auto) [place] # (Auto) Eos # (Auto) Baso # (Auto) Abs Immat Gran (auto) Absolute Neuts (auto) Absolute Nucleated RBC Nucleated RBC % (auto) PT INR Sodium 144 Potassium 4.5 Chloride 103 Carbon Dioxide 32 H Anion Gap 14 BUN 37 H Creatinine 1.18 Estim Creat Clear Calc 49.4 Estimated GFR 59 Random Glucose 151 H D Calcium 9.1 Magnesium Total Bilirubin Direct Bilirubin AST ALT Alkaline Phosphatase Troponin I High Sens B-Natriuretic Peptide 1747 H Total Protein Albumin Procalcitonin Urine Color Urine Appearance Urine pH Ur Specific [place] Urine Protein Urine Glucose (UA) Urine Ketones Urine Blood Urine Nitrite Ur Leukocyte Esterase Urine RBC Urine WBC Ur Squamous Epith Cells Urine Bacteria COVID-19 (DAMASO) COVID-19 Clin Com Influenza Type A (JLUIS) Influenza Type B (JLUIS) Influenza A & B Note Imaging Radiologist's impression: Impressions Chest X-Ray 10/05/21 12:30 IMPRESSION: Question loculated lateral pneumothorax versus overlap of structures which could be related to sheets or skin folds in patient with some bullae being present. Some interstitial markings which have increased which may be related to pulmonary vascular congestion in this patient with mild cardiomegaly. Increase in left lower lobe density which may be related to atelectasis or pneumonitis. Chest CT 10/05/21 14:40 IMPRESSION: 1. Moderate left pleural effusion. No pneumothorax. 2. Suture line in the right upper lung. Soft tissue thickening/nodularity along this area, with increase in size of the nodule at the right apex which was previously seen to be FDG avid. 3. Persistent mediastinal lymphadenopathy. 4. Moderate emphysema. Fleischner guidelines were followed. Assessment and Plan (1) Acute CHF: Status: Acute Patient present with worsening symptoms of shortness of breath with leg edema consistent with congestive heart failure most likely related to atrial fibrillation rapid ventricular response. Unfortunately has multiple marilyn rbidities including advanced COPD with chronic respiratory failure requiring oxygen as well as lung malignancy with chronic atrial fibrillation as well as prior history of GI bleed and recurrent anemias. Since admission he said he has been diuresed and for a good amount of urine. Clinically today does not appear to be significantly fluid overloaded. Can be switched to oral Lasix 40 mg the morning and 20 mg at noon time. Strict intake and output chart needs to be pursued. Low-salt diet needs to be pursued. Better rate control needs to be pursued. 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 Last echocardiogram showing preserved LV ejection fraction. Continue to optimize his pulmonary function. Overall prognosis is guarded. (2) Atrial fibrillation with RVR: Status: Acute Atrial fibrillation rapid ventricular response due to discontinuation digoxin. Give him 2 doses of digoxin 0.25 mg IV push q.6 hours. Reduce metoprolol to 50 mg in the morning and 25 mg at nighttime. Will further reduce metoprolol his heart rate becomes slower continue digoxin therapy. Has been started back on warfarin therapy and this needs to be monitor closely. Patient has had prior history of uncorrectable GI bleed leading to recurrent hospitalizations as well. Will follow up Procedures Date of Service Date of Service: 10/06/21
[2021-10-06] MEDS: Aspirin Enteric Coated 81 MG TABLET.DR PO (14:03)
[2021-10-06] MEDS: Ferrous Sulfate 324 MG TABLET.DR PO (14:03)
[2021-10-06] MEDS: Digoxin 0.5 MG/2 ML AMPUL 0.25 MG IVPUSH ×2 (14:04→19:36)
--- NOTE | 2021-10-06 16:15 | MHC.CM.PN ---
Addendum entered by Jeannie Boo RN 10/06/21 16:30: [facility] HAS ACCEPTED PT AND WILL FOLLOW. Original Note: IMM 10/06/21, EMR REVIEWED, CM MET W/PT WHO IS A&O, PT REPORTS HE LIVES ALONE, HAS BOTH A CANE/WALKER AND GRAB BARS IN , PT DENIES HOME SERVICES AND IS REQUESTING VNA UPON D/C, PT PREFERS VNA HE HAD LAST ADMIT AND PER RECORD PT HAD [facility], REFERRAL HAS BEEN PLACED. PCP VERIFIED ENRIQUE CASTRO, COVID VACCINE X3, HCP ON FILE FROM OLD RECORDS, COPY PLACED ON PT'S CHART. D/C PLAN: HOME W/[facility], FAMILY FOR TRANSPORT
[2021-10-06] MEDS: Atorvastatin Calcium 40 MG TABLET PO (19:38)
[2021-10-06] MEDS: cefTRIAXone sodium 1 GM in 0.9 % Sodium Chloride 50 ML IV (21:50)
[2021-10-06] MEDS: Metoprolol Tartrate 5 MG/5 ML VIAL 2.5 MG IVPUSH (22:11)
[2021-10-06] MEDS: traZODone HCL 50 MG TABLET PO (22:55)
[2021-10-07] VITALS (9 sets, daily range): BP systolic 101–155; BP diastolic 51–75; PULSE 68–117; RESP 18; TEMP 36.2–37.1; O2SAT 95–100
--- NOTE | 2021-10-07 03:29 | PC.NURSE ---
Pt had a BP=98/50 manually and with RVR at 120s-130s, pt denies any palpitations or dizziness, Dr. Ha was paged,sheduled Metoprolol po was held and Metoprolol 2.5 mg IV ordered instead, Nsg radiology supervisor was called to give Metoprolol, Vitals stable so far, still AF uncontrolled on low 100s-teens, pt asked for some sleep med, Trazodone tab given, callbell in reach, slept fairly.
[2021-10-07] MEDS: Doxycycline Hyclate 100 MG in 0.9 % Sodium Chloride 250 ML 166.67 MG IV ×2 (05:27→17:39)
[2021-10-07] MEDS: Albuterol/Iprat 2.5/0.5MG 3 ML AMPUL.NEB INHALE ×3 (07:06→20:36)
[2021-10-07 07:20] LABS: Hematocrit 35.4 % (42.0-52.0); Hemoglobin 11.3 g/dl (14.0-18.0); Mean Corpuscular HGB Conc 31.9 g/dl (31.0-36.0); Mean Corpuscular Hemoglobin 31.2 pg (27.0-33.0); Mean Corpuscular Volume 97.8 fL (80.0-98.0); Mean Platelet Volume 12.6 fL (9.4-12.4); Platelet Count 127 X10*3/uL (160-400); Red Blood Count 3.62 X10*6/uL (4.60-5.80); Red Cell Distribution Width 20.4 % (11.0-16.0); White Blood Count 6.7 X10*3/uL (4.8-10.8)
[2021-10-07 07:32] LABS: INTERNATIONAL NORM RATIO 2.8 (0.9-1.1); Prothrombin Time 33.1 SEC (9.9-13.0)
[2021-10-07 07:49] LABS: Anion Gap 12 (12-20); Blood Urea Nitrogen 41 mg/dL (9-16); Carbon Dioxide 32 mmol/L (22-29); Chloride 103 mmol/L (96-108); Creatinine Clr Calc Pharmacy 56.7; Estimated Glomerular Filt Rate > 60; Glucose Random 94 mg/dL (60-115); Potassium 4.1 mmol/L (3.3-5.1); Sodium 143 mmol/L (135-145)
[2021-10-07 07:58] LABS: Calcium 8.5 mg/dL (8.4-10.2)
[2021-10-07] MEDS: Nicotine 14 MG PATCH.TD24 TRANSDERMA (08:47)
[2021-10-07] MEDS: Multivitamin TABLET 1 TAB PO (08:47)
[2021-10-07] MEDS: Metoprolol Succinate ER 50 MG TAB.ER.24H PO ×2 (08:47→21:01)
[2021-10-07] MEDS: Digoxin 0.125 MG TABLET PO (08:48)
[2021-10-07] MEDS: Folic Acid 1 MG TABLET PO (08:48)
[2021-10-07] MEDS: predniSONE 20 MG TABLET 40 MG PO (08:48)
[2021-10-07] MEDS: Furosemide 40 MG TABLET PO (08:48)
[2021-10-07] MEDS: guaiFENesin LA 600 MG TAB.ER.12H PO ×2 (08:48→21:01)
[2021-10-07] MEDS: Valsartan 40 MG TABLET PO (08:48)
--- NOTE | 2021-10-07 11:22 | HO.PM.IMPN ---
Subjective Subjective Date of Service: 10/07/21 Interval History: seen and examined this morning follow up for afib, copd, chf able to take campuzano breaths this morning, no chest pain or palpitaions HR is still uncontrolld, leg edema improving, but still with ankle edema Review of Systems Review of Systems: Yes all other systems are reviewed and are negative Constitutional Constitutional: Denies chills and Denies fever(s) Cardiovascular Cardiovascular: Denies chest pain, Denies palpitations and Reports dyspnea on exertion Respiratory Respiratory: Reports cough and Reports dyspnea on exertion Gastrointestinal Gastrointestinal: Denies abdominal pain, Denies diarrhea, Denies nausea and Denies vomiting Endocrine Endocrine: Denies palpitations Physical Exam Vital Signs: Vital Signs: Last Vital Signs Temp 97.3 F 10/07/21 07:53 Pulse 114 H 10/07/21 07:53 Resp 18 10/07/21 07:53 BP 112/75 10/07/21 07:53 Pulse Ox 100 10/07/21 07:53 BMI result Body Mass Index 20.5 Const: General: cooperative, comfortable, alert and awake Nutritional Appearance: thin Orientation/consciousness: patient oriented x3 Resp: Other: dim left side, able to take full breaths today; no rales Effort & Inspection: normal respiratory effort, able to speak in complete sentences and no use of accessory muscles Auscultation: no rales Cardio: Rate: tachycardic Rhythm: abnormal rhythm (irregular) GI: Inspection: No distended Palpation (GI): Soft to palpation Neuro: General: patient oriented x3 Extrem: Other: edema improving, still with ankle edema Objective Data Active Medications Acetaminophen (Acetaminophen 325 Mg Tablet) 650 mg PO Q6H PRN PRN Reason: Pain, Mild (Pain Scale 1-3) Albuterol Sulfate (Albuterol Sulfate 90 Mcg 8 Gm Inhaler) 2 puff INHALE Q6H PRN PRN Reason: shortness of breath or wheezing Albuterol/Ipratropium (Albuterol/Iprat 2.5/0.5mg 3 Ml Ampul.Neb) 3 ml INHALE RQ6H WHILE AWAKE [facility] [place] Last Admin: 10/07/21 07:06 Dose: 3 ml Documented by: CHICO Aspirin (Aspirin Enteric Coated 81 Mg Tablet.) 81 mg PO DAILY@1500 [facility] [place] Last Admin: 10/06/21 14:03 Dose: 81 mg Documented by: HELEN Atorvastatin Calcium (Atorvastatin Calcium 40 Mg Tablet) 40 mg PO BEDTIME [facility] [place] Last Admin: 10/06/21 19:38 Dose: 40 mg Documented by: FAYEILYaron Benzonatate (Benzonatate 100 Mg Capsule) 100 mg PO TID PRN PRN Reason: Cough Last Admin: 10/06/21 19:38 Dose: 100 mg Documented by: THU Digoxin (Digoxin 0.125 Mg Tablet) 0.125 mg PO DAILY [facility] [place] Last Admin: 10/07/21 08:48 Dose: 0.125 mg Documented by: HELEN Docusate Sodium (Docusate Sodium 100 Mg Capsule) 100 mg PO DAILY PRN PRN Reason: Constipation Ferrous Sulfate (Ferrous Sulfate 324 Mg Tablet.Dr) 324 mg PO DAILY@1500 [facility] [place] Last Admin: 10/06/21 14:03 Dose: 324 mg Documented by: HELEN Folic Acid (Folic Acid 1 Mg Tablet) 1 mg PO DAILY [facility] [place] Last Admin: 10/07/21 08:48 Dose: 1 mg Documented by: HELEN Furosemide (Furosemide 40 Mg Tablet) 40 mg PO DAILY [facility] [place]; Protocol Last Admin: 10/07/21 08:48 Dose: 40 mg Documented by: HELEN Furosemide (Furosemide 20 Mg Tablet) 20 mg PO DAILY@1300 [facility] [place]; Protocol Guaifenesin (Guaifenesin La 600 Mg Tab.Er.12h) 600 mg PO BID [facility] [place] Last Admin: 10/07/21 08:48 Dose: 600 mg Documented by: HELEN Ceftriaxone Sodium 1 gm/ (Sodium Chloride) 50 mls @ 100 mls/hr IV Q24H [facility] [place] Last Infusion: 10/06/21 22:36 Dose: 0 mls/hr Documented by: THU Doxycycline Hyclate 100 mg/ (Sodium Chloride) 250 mls @ 166.67 mls/hr IV Q12H [facility] [place] Last Infusion: 10/07/21 07:17 Dose: 0 mls/hr Documented by: HELEN Metoprolol Succinate (Metoprolol Succinate Er 50 Mg Tab.Er.24h) 50 mg PO DAILY [facility] [place]; Protocol Last Admin: 10/07/21 08:47 Dose: 50 mg Documented by: HELEN Metoprolol Succinate (Metoprolol Succinate Er 25 Mg Tab.Er.24h) 25 mg PO BEDTIME [facility] [place]; Protocol Last Admin: 10/06/21 21:55 Dose: Not Given Documented by: THU Non-Admin Reason: BP low ,held by Dr. Ha Multivitamins/Vitamin C (Multivitamin Tablet) 1 tab PO DAILY [facility] [place] Last Admin: 10/07/21 08:47 Dose: 1 tab Documented by: HEELN Nicotine (Nicotine 14 Mg Patch.Td24) 14 mg TRANSDERMA DAILY [facility] [place] Last Admin: 10/07/21 08:47 Dose: 14 mg Documented by: HELEN Ondansetron HCl (Ondansetron Hcl 4 Mg/2 Ml Vial) 4 mg IVPUSH Q8H PRN PRN Reason: Nausea and Vomiting Pharmacy Consult (Consult Rx Vancomycin Dosing) 1 each MISCELLANE DAILY PRN PRN Reason: Consult order Pharmacy Consult (Consult Rx Perform Med Rec) 1 each MISCELLANE ONCE PRN PRN Reason: Consult order Prednisone (Prednisone 20 Mg Tablet) 40 mg PO DAILY [facility] [place] Last Admin: 10/07/21 08:48 Dose: 40 mg Documented by: HELEN Sodium Chloride (0.9 % Sodium Chloride Flush 3 Ml Syringe) 3 ml IVFLUSH QSHIFT [facility] [place] Last Admin: 10/07/21 09:11 Dose: Not Given Documented by: HELEN Non-Admin Reason: Previously Administered Valsartan (Valsartan 40 Mg Tablet) 40 mg PO DAILY [facility] [place]; Protocol Last Admin: 10/07/21 08:48 Dose: 40 mg Documented by: HELEN Warfarin Sodium (Warfarin Sodium 2 Mg Tablet) 2 mg PO MOSA@1800 [facility] [place] Warfarin Sodium (Warfarin Sodium 1 Mg Tablet) 1 mg PO SUTUWETHFR@1800 [facility] [place] Labs CBC & Chem 7: 10/07/21 05:49 10/07/21 05:49 Labs: Laboratory Results - last 24 hr 10/06/21 10/07/21 10/07/21 05:36 05:49 05:49 MCV 97.8 MCH 31.2 MCHC 31.9 RDW 20.4 H Plt Count 127 L MPV 12.6 H Absolute Nucleated RBC 0.000 Nucleated RBC % (auto) 0.0 PT 33.1 H INR 2.8 H Anion Gap Estim Creat Clear Calc Estimated GFR Random Glucose Calcium Magnesium 2.0 10/07/21 05:49 MCV MCH MCHC RDW Plt Count MPV Absolute Nucleated RBC Nucleated RBC % (auto) PT INR Anion Gap 12 Estim Creat Clear Calc 56.7 Estimated GFR > 60 Random Glucose 94 D Calcium 8.5 D Magnesium Microbiology Microbiology Results: Microbiology 10/05/21 12:49 Blood Culture - Preliminary Blood - Venous No growth after 24 hours. 10/05/21 12:39 Blood Culture - Preliminary Blood - Venous No growth after 24 hours. 10/06/21 09:54 Gram Stain - Final Sputum - Expectorated Sputum Culture - Final Assessment and Plan (1) Atrial fibrillation with RVR: Status: Acute (2) Pleural effusion on left: Status: Acute Plan This is an 81-year-old male with history of COPD, HFpEF, atrial fibrillation on Coumadin, NSMLC, PAD, CAD, HLD, OA, HTN, h/o GIB who presents to the emergency department with shortness of breath found to have left pleural effusion and AFib with RVR Chronic Atrial fibrillation with RVR HR reamins uncontrolled digoxin d/c on last admit due to sinus pauses -change BB dosing to toprol xl 50 daily and 25 qhs -re-start digoxin per cardiology rec -hold Coumadin due to possible need for thoracentesis, follow INR -cardiology following Acute on chronic HFpEF echo from 06/26 showing preserved ejection fraction BNP significantly elevated from baseline initially treated with IV lasix, transitioned back to PO lasix in& outs not accurate -continue lopressor, diovan -continue low-sodium diet -cardiology following Left-sided pleural effusion Secondary to CHF versus malignant due to underlying lung cancer Will start with diuresis, if no improvement will consider thoracentesis repeat CXR today Acute COPD exacerbation/possible bronchitis still with frequent coughing episodes -IV ceftriaxone/doxycycline D#3/5 -scheduled, prn breathing treatments -po prednisone -mucinex, tessalon for symptomatic treatment Anemia H/H above baseline on iron supplementation at home Tobacco dependence Smoking cessation advised -NRT NSCLC outpatient follow up HLD continue statin HTN BP controlled continue valsartan, metoprolol CAD/PAD continue statin, ASA tachycardia secondary to rapid afib, not sepsis dvt ppx - coumadin code status - full code HCP - rashid Perez Attending - dr. Chapin Pt requires ongoing inpatient hospitalization due to atrial fibrillation with rapid ventricular response HR still uncontrolled, acute CHF requiring IV Lasix, left-sided pleural effusion which may need thoracentesis and acute COPD exacerbation Quality Stroke Does the patient have a stroke diagnosis?: No VTE Prior VTE?: No VTE Risk Level:: Medical - moderate - high VTE Device Contraindication: N/A - Device Ordered VTE Drug Contraindication: Treatment Not Indicated
--- NOTE | 2021-10-07 12:30 | P.PNCA_ITS ---
Subjective Subjective Date of Service: 10/07/21 Principal diagnosis: Atrial fibrillation CHF Interval history: Patient currently feeling well. Intermittently still gets short of breath. Heart rate remains elevated. Did not get last night p.o. metoprolol dose. D enies any palpitations. No lightheadedness, syncope. Review of Systems Constitutional: Reports no additional constitutional complaints Cardiovascular: Denies chest pain, Denies syncope, Denies leg edema, Denies pa lpitations and Reports dyspnea on exertion Respiratory: Reports dyspnea on exertion and Reports wheezing Gastrointestinal: Reports no additional gastrointestinal complaints Musculoskeletal: Reports no additional musculoskeletal complaints Reports system reviewed and no additional complaints, except as documented and Denies syncope Psychiatric: Reports no additional psychiatric complaints Endocrine: Denies palpitations Hematologic/Lymphatic: Reports no additional hematologic/lymphatic complaints Allergic/Immunologic: Reports wheezing Physical Exam Vital Signs: Last Vital Signs Temp 98.1 F 10/07/21 12:00 Pulse 96 10/07/21 12:00 Resp 18 10/07/21 12:00 BP 103/72 10/07/21 12:00 Pulse Ox 98 10/07/21 12:00 BMI result Body Mass Index 20.5 Const General: cooperative, comfortable, no acute distress, alert and awake Nutritional Appearance: underweight Neck Neck: Yes trachea midline, Yes supple and Yes no JVD Resp Effort & Inspection: normal respiratory effort Auscultation: wheezes and diminished lung sounds Cardio Jugular venous distension: no JVD Rate: tachycardic Rhythm: abnormal rhythm irregularly irregular Heart sounds: S1 normal heart sound present and S2 normal heart sound present Skin General skin exam: no rashes or lesions noted and ecchymosis Extrem General: Yes no clubbing, cyanosis or edema and Yes pedal edema Objective Labs and Meds Result diagrams: 10/07/21 05:49 10/07/21 05:49 Lab results: Laboratory Results - last 24 hr 10/06/21 10/07/21 10/07/21 05:36 05:49 05:49 WBC 6.7 RBC 3.62 L Hgb 11.3 L Hct 35.4 L MCV 97.8 MCH 31.2 MCHC 31.9 RDW 20.4 H Plt Count 127 L MPV 12.6 H Absolute Nucleated RBC 0.000 Nucleated RBC % (auto) 0.0 PT 33.1 H INR 2.8 H Sodium Potassium Chloride Carbon Dioxide Anion Gap BUN Creatinine Estim Creat Clear Calc Estimated GFR Random Glucose Calcium Magnesium 2.0 10/07/21 05:49 WBC RBC Hgb Hct MCV MCH MCHC RDW Plt Count MPV Absolute Nucleated RBC Nucleated RBC % (auto) PT INR Sodium 143 Potassium 4.1 Chloride 103 Carbon Dioxide 32 H Anion Gap 12 BUN 41 H Creatinine 1.03 Estim Creat Clear Calc 56.7 Estimated GFR > 60 Random Glucose 94 D Calcium 8.5 D Magnesium Progress Note: A&P Assessment and plan (1) Acute CHF: Status: Acute Assessment and Plan: Congestive heart failure along with COPD exacerbation and advanced pulmonary disease and chronic respiratory failure. Clinically looking euvolemic and well compensated. Continue Lasix 40 mg the morning and 20 mg at noon time. Consider adding Aldactone 12.5 mg to his regimen. Heart failure management was discussed. Continue to optimize His pulmonary function. Continue oxygen therapy. Overall prognosis is guarded (2) Atrial fibrillation with RVR: Status: Acute Assessment and Plan: Chronic atrial fibrillation with inadequate rate control. Recently digoxin was discontinued. He has had very difficult time controlling rate with evidence of occasional slow ventricular response. No indication for pacing therapy as of now. Switch to Toprol XL 50 mg b.i.d. along with digoxin 0.125 mg daily. If heart rate adequately control can be discharged to. Back on warfarin therapy with prior says significant GI bleeding. Maintain INR at the lower range at 1.8-2.2. Will sign of the case. Time Spent With Patient Time: Total time spent is greater than 50% in coordination of care (as documented) at patient's floor/unit and/or counseling patient: Progress Note: Quality Stroke Does the patient have a stroke diagnosis?: No Procedures Date of Service Date of Service: 10/07/21
[2021-10-07] MEDS: Furosemide 20 MG TABLET PO (12:58)
[2021-10-07] MEDS: Benzonatate 100 MG CAPSULE PO (15:07)
[2021-10-07] MEDS: Aspirin Enteric Coated 81 MG TABLET.DR PO (15:07)
[2021-10-07] MEDS: Ferrous Sulfate 324 MG TABLET.DR PO (15:07)
[2021-10-07] MEDS: 0.9 % Sodium Chloride Flush 3 ML SYRINGE IVFLUSH ×2 (15:07→22:23)
[2021-10-07] MEDS: Atorvastatin Calcium 40 MG TABLET PO (21:01)
[2021-10-07] MEDS: cefTRIAXone sodium 1 GM in 0.9 % Sodium Chloride 50 ML IV (21:02)
[2021-10-07] MEDS: traZODone HCL 50 MG TABLET PO (22:22)
[2021-10-08] VITALS (9 sets, daily range): BP systolic 93–144; BP diastolic 66–77; PULSE 91–104; RESP 17–18; TEMP 36.1–37.2; O2SAT 94–100; BMI 20.5
[2021-10-08] MEDS: Doxycycline Hyclate 100 MG in 0.9 % Sodium Chloride 250 ML 166.67 MG IV ×2 (05:39→17:51)
[2021-10-08 06:15] LABS: INTERNATIONAL NORM RATIO 2.5 (0.9-1.1); Prothrombin Time 28.5 SEC (9.9-13.0)
[2021-10-08 06:38] LABS: Anion Gap 8 (12-20); Blood Urea Nitrogen 39 mg/dL (9-16); Calcium 8.2 mg/dL (8.4-10.2); Carbon Dioxide 35 mmol/L (22-29); Chloride 104 mmol/L (96-108); Creatinine Clr Calc Pharmacy 62.1; Estimated Glomerular Filt Rate > 60; Glucose Random 100 mg/dL (60-115); Potassium 4.2 mmol/L (3.3-5.1); Sodium 143 mmol/L (135-145)
[2021-10-08] MEDS: Albuterol/Iprat 2.5/0.5MG 3 ML AMPUL.NEB INHALE ×3 (07:28→20:18)
[2021-10-08] MEDS: guaiFENesin LA 600 MG TAB.ER.12H PO ×2 (08:40→19:39)
[2021-10-08] MEDS: 0.9 % Sodium Chloride Flush 3 ML SYRINGE IVFLUSH ×3 (08:40→19:43)
[2021-10-08] MEDS: Folic Acid 1 MG TABLET PO (08:40)
[2021-10-08] MEDS: Multivitamin TABLET 1 TAB PO (08:40)
[2021-10-08] MEDS: Nicotine 14 MG PATCH.TD24 TRANSDERMA (08:40)
[2021-10-08] MEDS: predniSONE 20 MG TABLET 40 MG PO (08:40)
[2021-10-08] MEDS: Metoprolol Succinate ER 50 MG TAB.ER.24H PO ×2 (08:41→19:39)
[2021-10-08] MEDS: Furosemide 40 MG TABLET PO (08:41)
[2021-10-08] MEDS: Valsartan 40 MG TABLET PO (08:41)
[2021-10-08] MEDS: Digoxin 0.125 MG TABLET PO (08:41)
--- NOTE | 2021-10-08 09:50 | HO.PM.IMPN ---
Subjective Subjective Date of Service: 10/08/21 Review of Systems Follow up CHF, afib less sob but hasn't walked much in the room Physical Exam Vital Signs: Vital Signs: Last Vital Signs Temp 97.0 F 10/08/21 07:48 Pulse 100 10/08/21 07:48 Resp 17 10/08/21 07:48 BP 103/71 10/08/21 07:48 Pulse Ox 100 10/08/21 07:48 BMI result Body Mass Index 20.5 Appearing in no acute distress lung sounds rales heart regular rate rhythm, clear S1, S2 positive bowel sounds, abdomen is soft, nontender neuro patient is alert x3, no focal deficits Objective Data Active Medications Acetaminophen (Acetaminophen 325 Mg Tablet) 650 mg PO Q6H PRN PRN Reason: Pain, Mild (Pain Scale 1-3) Albuterol Sulfate (Albuterol Sulfate 90 Mcg 8 Gm Inhaler) 2 puff INHALE Q6H PRN PRN Reason: shortness of breath or wheezing Albuterol/Ipratropium (Albuterol/Iprat 2.5/0.5mg 3 Ml Ampul.Neb) 3 ml INHALE RQ6H WHILE AWAKE [facility] Last Admin: 10/08/21 07:28 Dose: 3 ml Documented by: CHICO Aspirin (Aspirin Enteric Coated 81 Mg Tablet.) 81 mg PO DAILY@1500 [facility] Last Admin: 10/07/21 15:07 Dose: 81 mg Documented by: HELEN Atorvastatin Calcium (Atorvastatin Calcium 40 Mg Tablet) 40 mg PO BEDTIME [facility] Last Admin: 10/07/21 21:01 Dose: 40 mg Documented by: ALLISON Benzonatate (Benzonatate 100 Mg Capsule) 100 mg PO TID PRN PRN Reason: Cough Last Admin: 10/07/21 15:07 Dose: 100 mg Documented by: HELEN Digoxin (Digoxin 0.125 Mg Tablet) 0.125 mg PO DAILY [facility] Last Admin: 10/08/21 08:41 Dose: 0.125 mg Documented by: HELEN Docusate Sodium (Docusate Sodium 100 Mg Capsule) 100 mg PO DAILY PRN PRN Reason: Constipation Ferrous Sulfate (Ferrous Sulfate 324 Mg Tablet.) 324 mg PO DAILY@1500 [facility] Last Admin: 10/07/21 15:07 Dose: 324 mg Documented by: HELEN Folic Acid (Folic Acid 1 Mg Tablet) 1 mg PO DAILY [facility] Last Admin: 10/08/21 08:40 Dose: 1 mg Documented by: HELEN Furosemide (Furosemide 40 Mg Tablet) 40 mg PO DAILY [facility]; Protocol Last Admin: 10/08/21 08:41 Dose: 40 mg Documented by: HELEN Furosemide (Furosemide 20 Mg Tablet) 20 mg PO DAILY@1300 [facility]; Protocol Last Admin: 10/07/21 12:58 Dose: 20 mg Documented by: HELEN Guaifenesin (Guaifenesin La 600 Mg Tab.Er.12h) 600 mg PO BID [facility] Last Admin: 10/08/21 08:40 Dose: 600 mg Documented by: HELEN Ceftriaxone Sodium 1 gm/ (Sodium Chloride) 50 mls @ 100 mls/hr IV Q24H [facility] Last Infusion: 10/07/21 22:09 Dose: 100 mls/hr Documented by: ALLISON Doxycycline Hyclate 100 mg/ (Sodium Chloride) 250 mls @ 166.67 mls/hr IV Q12H [facility] Last Infusion: 10/08/21 07:11 Dose: 0 mls/hr Documented by: HELEN Metoprolol Succinate (Metoprolol Succinate Er 50 Mg Tab.Er.24h) 50 mg PO BID [facility]; Protocol Last Admin: 10/08/21 08:41 Dose: 50 mg Documented by: HELEN Multivitamins/Vitamin C (Multivitamin Tablet) 1 tab PO DAILY [facility] Last Admin: 10/08/21 08:40 Dose: 1 tab Documented by: HELEN Nicotine (Nicotine 14 Mg Patch.Td24) 14 mg TRANSDERMA DAILY [facility] Last Admin: 10/08/21 08:40 Dose: 14 mg Documented by: HELEN Ondansetron HCl (Ondansetron Hcl 4 Mg/2 Ml Vial) 4 mg IVPUSH Q8H PRN PRN Reason: Nausea and Vomiting Pharmacy Consult (Consult Rx Vancomycin Dosing) 1 each MISCELLANE DAILY PRN PRN Reason: Consult order Pharmacy Consult (Consult Rx Perform Med Rec) 1 each MISCELLANE ONCE PRN PRN Reason: Consult order Prednisone (Prednisone 20 Mg Tablet) 40 mg PO DAILY [facility] Last Admin: 10/08/21 08:40 Dose: 40 mg Documented by: HELEN Sodium Chloride (0.9 % Sodium Chloride Flush 3 Ml Syringe) 3 ml IVFLUSH QSHIFT [facility] Last Admin: 10/08/21 08:40 Dose: 3 ml Documented by: HELEN Valsartan (Valsartan 40 Mg Tablet) 40 mg PO DAILY [facility]; Protocol Last Admin: 10/08/21 08:41 Dose: 40 mg Documented by: HELEN Warfarin Sodium (Warfarin Sodium 2 Mg Tablet) 2 mg PO MOSA@1800 [facility] Warfarin Sodium (Warfarin Sodium 1 Mg Tablet) 1 mg PO SUTUWETHFR@1800 [facility] Labs CBC & Chem 7: 10/07/21 05:49 10/08/21 05:56 Labs: Laboratory Results - last 24 hr 10/08/21 10/08/21 05:56 05:56 PT 28.5 H INR 2.5 H Anion Gap 8 L Estim Creat Clear Calc 62.1 Estimated GFR > 60 Random Glucose 100 Calcium 8.2 L Microbiology Microbiology Results: Microbiology 10/05/21 12:49 Blood Culture - Preliminary Blood - Venous No growth after 48 hours. 10/05/21 12:39 Blood Culture - Preliminary Blood - Venous No growth after 48 hours. Assessment and Plan (1) Atrial fibrillation with RVR: Status: Acute (2) Pleural effusion on left: Status: Acute Plan This is an 81-year-old male with history of COPD, HFpEF, atrial fibrillation on Coumadin, NSMLC, PAD, CAD, HLD, OA, HTN, h/o GIB who presents to the emergency department with shortness of breath found to have left pleural effusion and AFib with RVR Chronic Atrial fibrillation with RVR HR still uncontrolled toprol xl 50mg BID re-start digoxin per cardiology rec hold Coumadin due to possible need for thoracentesis, follow INR Acute on chronic HFpEF echo from 06/26 showing preserved ejection fraction BNP significantly elevated from baseline initially treated with IV lasix, transitioned back to PO lasix continue lopressor, diovan continue low-sodium diet Left-sided pleural effusion Secondary to CHF versus malignant due to underlying lung cancer Will start with diuresis, if no improvement will consider thoracentesis repeat CXR showing small to moderate effusion Acute COPD exacerbation/possible bronchitis IV ceftriaxone/doxycycline scheduled, prn breathing treatments po prednisone mucinex, tessalon for symptomatic treatment Anemia H/H above baseline on iron supplementation at home Tobacco dependence Smoking cessation advised -NRT NSCLC outpatient follow up HLD continue statin HTN BP controlled continue valsartan, metoprolol CAD/PAD continue statin, ASA dvt ppx - coumadin code status - full code HCP - son Chris Attending Dr. Greenfield Pt requires ongoing inpatient hospitalization due to atrial fibrillation with rapid ventricular response HR still uncontrolled, acute CHF requiring IV Lasix, left-sided pleural effusion which may need thoracentesis and acute COPD exacerbation Quality Stroke Does the patient have a stroke diagnosis?: No VTE Prior VTE?: No VTE Risk Level:: Medical - moderate - high VTE Device Contraindication: N/A - Device Ordered VTE Drug Contraindication: Treatment Not Indicated
[2021-10-08] MEDS: Furosemide 20 MG TABLET PO (12:48)
[2021-10-08] MEDS: Aspirin Enteric Coated 81 MG TABLET.DR PO (14:37)
[2021-10-08] MEDS: bisacodyL 5 MG TABLET.DR PO (14:38)
[2021-10-08] MEDS: Ferrous Sulfate 324 MG TABLET.DR PO (14:38)
[2021-10-08] MEDS: Atorvastatin Calcium 40 MG TABLET PO (19:39)
[2021-10-08] MEDS: polyethylene glycoL 3350 17 GM POWD.PACK PO (19:39)
[2021-10-08] MEDS: cefTRIAXone sodium 1 GM in 0.9 % Sodium Chloride 50 ML IV (21:33)
[2021-10-09] MEDS: traZODone HCL 25 MG HALFTAB PO (01:31)
[2021-10-09 04:00] VITALS: BP 118/74; PULSE 76; RESP 17; TEMP 36.3; O2SAT 95
[2021-10-09] MEDS: Doxycycline Hyclate 100 MG in 0.9 % Sodium Chloride 250 ML 166.67 MG IV (05:43)
[2021-10-09 06:30] LABS: Anion Gap 9 (12-20); Blood Urea Nitrogen 40 mg/dL (9-16); Calcium 8.4 mg/dL (8.4-10.2); Carbon Dioxide 36 mmol/L (22-29); Chloride 102 mmol/L (96-108); Creatinine Clr Calc Pharmacy 61.4; Estimated Glomerular Filt Rate > 60; Glucose Random 101 mg/dL (60-115); Potassium 4.2 mmol/L (3.3-5.1); Sodium 143 mmol/L (135-145)
[2021-10-09 06:33] LABS: Prothrombin Time 22.9 SEC (9.9-13.0)
[2021-10-09 07:44] VITALS: BP 113/82; PULSE 100; RESP 22; TEMP 36.1; O2SAT 95
[2021-10-09] MEDS: Furosemide 40 MG TABLET PO (08:05)
[2021-10-09] MEDS: Nicotine 14 MG PATCH.TD24 TRANSDERMA (08:05)
[2021-10-09] MEDS: Folic Acid 1 MG TABLET PO (08:06)
[2021-10-09] MEDS: Metoprolol Succinate ER 50 MG TAB.ER.24H PO (08:06)
[2021-10-09] MEDS: Multivitamin TABLET 1 TAB PO (08:06)
[2021-10-09] MEDS: predniSONE 20 MG TABLET 40 MG PO (08:06)
[2021-10-09] MEDS: guaiFENesin LA 600 MG TAB.ER.12H PO (08:06)
[2021-10-09] MEDS: Valsartan 40 MG TABLET PO (08:06)
[2021-10-09] MEDS: Digoxin 0.125 MG TABLET PO (08:06)
[2021-10-09] MEDS: 0.9 % Sodium Chloride Flush 3 ML SYRINGE IVFLUSH (08:07)
[2021-10-09] MEDS: Albuterol/Iprat 2.5/0.5MG 3 ML AMPUL.NEB INHALE (08:44)
[2021-10-09 08:47] VITALS: PULSE 84; RESP 18; O2SAT 95
[2021-10-09] MEDS: Lidocaine 4 % Patch ADH..PATCH 1 PATCH TRANSDERMA (09:39)
[2021-10-09 09:42] VITALS: PULSE 84
--- NOTE | 2021-10-09 10:04 | MHC.CM.PN ---
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
--- NOTE | 2021-10-09 10:11 | P.DS_ITS ---
DS: Providers Provider Date of Service: 10/09/21 Date of admission: 10/05/21 17:30 Primary care physician: Ben Durham MD Consults: 10/05/21 17:35 Consult to Cardiology Routine Consulting Provider: Honorio Hernández Reason for consultation: afib rvr, chf Has provider been notified: No DS: Diagnosis Discharge Diagnosis (1) Atrial fibrillation with RVR: Status: Acute (2) Pleural effusion on left: Status: Acute DS: Summary Hospital Course Hospital Course: HP as per admitting provider This is an 81-year-old male with multiple medical problems who presents to the emergency department with shortness of breath.? He states that last evening he began having shortness of breath and dyspnea on exertion.? This was associated with cough productive of daniel phlegm.? He has noticed shortness of breath with ambulation as well as walking up stairs which is new from his baseline.? He denies any associated fever, chills, chest pain, palpitations.? In the emergency department he was noted to be in atrial fibrillation with rapid ventricular response.? He received dose of IV Lopressor but heart rate continue to be elevated.? BNP was elevated at 1366 and he received a dose of IV Lasix.? CT scan of the chest showed moderate left pleural effusion as well as chronic lung changes.? Patient was also treated with IV antibiotics and breathing treatments.? Patient reports increasing lower extremity edema as well as a 4-6 lb weight gain in the past 1 week.? He has significant fluid intake reporting 2-3 cups of coffee in the morning followed by a 12 oz beverage, 15:00 has another cup of coffee and then 2 more 16 oz beverages at night. He also has history of lung cancer which has returned, he is supposed to have follow up appointment with oncology next week to determine treatment options. vaccination status: has been vaccinated x 3 but can't remember which vaccine he received Chronic Atrial fibrillation with RVR HR still uncontrolled toprol xl 50mg BID re-start digoxin per cardiology rec continue warfarin follow INR Acute on chronic HFpEF echo from 06/26 showing preserved ejection fraction BNP significantly elevated from baseline initially treated with IV lasix, transitioned back to PO lasix continue lopressor, diovan continue low-sodium diet Left-sided pleural effusion Secondary to CHF versus malignant due to underlying lung cancer Will start with diuresis, if no improvement will consider thoracentesis repeat CXR showing small to moderate effusion Acute COPD exacerbation/possible bronchitis IV ceftriaxone/doxycycline scheduled, prn breathing treatments po prednisone mucinex, tessalon for symptomatic treatment Left knee pain. Chronic but worsening with some swelling Knee x-ray showing moderate to severe tricompartmental degenerative joint changes with no acute fracture, dislocation or joint effusion May use lidocaine patches, Tylenol, cold and hot packs Should follow-up with Orthopedic surgery as an outpatient Anemia H/H above baseline on iron supplementation at home Tobacco dependence Smoking cessation advised -NRT NSCLC outpatient follow up HLD continue statin HTN BP controlled continue valsartan, metoprolol CAD/PAD continue statin, ASA Time Spent with Patient Time attestation: Total time spent providing and/or coordinating discharge services: Discharge coordination time: Greater than 30 minutes Quality: Safe Use of Opioids Does Pt have an Active Cancer Diagnosis on the Problem List?: No Quality: Stroke Does the patient have a stroke diagnosis?: No Physical Exam Vital Signs: Vital Signs: Last Vital Signs Temp 96.9 F 10/09/21 07:44 Pulse 84 10/09/21 09:42 Resp 18 10/09/21 08:47 BP 113/82 10/09/21 07:44 Pulse Ox 95 10/09/21 07:44 BMI result Body Mass Index 20.5 Appearing in no acute distress head is normocephalic atraumatic eyes pupils are PERRLA sclera is anicteric mouth throat mucous membranes are intact and moist neck is supple no lymphadenopathy, no JVD noted lung sounds are clear to auscultation heart regular rate rhythm, clear S1, S2 positive bowel sounds, abdomen is soft, nontender neuro patient is alert x3, no focal deficits DS: Data Data Completed and Pending Completed studies during hospitalization [Text1]: Procedures Excision of Duodenum, Via Natural or Artificial Opening Endoscopic, Diagnostic (06/20/21) Excision of Stomach, Pylorus, Via Natural or Artificial Opening Endoscopic, Diagnostic (06/20/21) Inspection of Lower Intestinal Tract, Via Natural or Artificial Opening Endoscopic (07/27/21) Inspection of Upper Intestinal Tract, Via Natural or Artificial Opening Endoscopic (07/27/21) Transfusion of Nonautologous Fresh Plasma into Peripheral Vein, Percutaneous Approach (07/27/21) Transfusion of Nonautologous Red Blood Cells into Peripheral Vein, Percutaneous Approach (07/27/21) Labs on day of discharge: Laboratory Results - last 24 hr 10/09/21 10/09/21 05:31 05:31 PT 22.9 H INR 2.0 H Sodium 143 Potassium 4.2 Chloride 102 Carbon Dioxide 36 H Anion Gap 9 L BUN 40 H Creatinine 0.95 Estim Creat Clear Calc 61.4 Estimated GFR > 60 Random Glucose 101 Calcium 8.4 Preliminary micro results at discharge 10/05/21 12:49 Blood Culture - Preliminary Blood - Venous No growth after 48 hours. 10/05/21 12:39 Blood Culture - Preliminary Blood - Venous No growth after 48 hours. Discharge Plan Discharge Anticipated Discharge Date/Time: 10/09/21 10:04 Patient Disposition: Home Health Service Discharge Diagnosis: Chronic Atrial fibrillation with RVR Acute on chronic HFpEF Left-sided pleural effusion Acute COPD exacerbation/bronchitis Referrals: Anmol Lai [Outside] - 1 Day (anmol caring vna for nrusing (diagnosis sign sym[khai management medication reconcilation) home physical therapy patient will be staying with his daughter darinel Guzman [facility] ) Ben Durham MD [Primary Care Provider] - 1 Week Discharge Medications: New metoprolol succinate 50 mg Tablet Extended Release 24 Hr 50 mg PO BID Qty: 60 0RF Protocol: Hold for SBP/HR < HOLD for SBP < : 90 HOLD for HR < : 60 digoxin 125 mcg (0.125 mg) Tablet 125 mcg PO DAILY Qty: 30 0RF lidocaine [Lidocaine Pain Relief] 4 % Adhesive Patch,Medicated 1 patch transdermal DAILY Qty: 30 0RF Protocol: Apply to: Apply to: left knee prednisone 20 mg Tablet 40 mg PO DAILY Qty: 8 0RF guaifenesin [Mucinex] 600 mg Tablet Extended Release 12hr 600 mg PO BID Qty: 9 0RF Continued folic acid 1 mg tablet 1 mg PO DAILY Qty: 90 1RF multivitamin Tablet 1 tab PO DAILY 0RF nicotine 14 mg/24 hr Patch 24 Hour 1 patch TRANSDERMAL DAILY@1500 0RF calcium carbonate-vitamin D3 600 mg(1,500mg) -200 unit Tablet 1 tab PO DAILY 0RF albuterol sulfate [Ventolin HFA] 90 mcg/actuation HFA aerosol inhaler 2 puff inhalation Q6H PRN (Reason: shortness of breath or wheezing) Qty: 6.7 0RF warfarin 1 mg tablet 1 mg PO SUTUWETHFR@1800 0RF Protocol: Dose Management Condition: Friday (Week One) Dose/Route: 2 mg Instruction: 2 x 1 mg tablets Condition: Friday Dose/Route: 1 mg Instruction: 1 x 1 mg tablet Condition: Friday Dose/Route: 2 mg Instruction: 2 x 1 mg tablets Condition: Friday Dose/Route: 1 mg Instruction: 1 x 1 mg tablet Condition: Dose/Route: 0 mg Instruction: 0 tablets Condition: Friday Dose/Route: 1 mg Instruction: 1 x 1 mg tablet Condition: Friday Dose/Route: 2 mg Instruction: 2 x 1 mg tablets Condition: Friday (Week Two) Dose/Route: 1 mg Instruction: 1 x 1 mg tablet Condition: Friday Dose/Route: 2 mg Instruction: 2 x 1 mg tablets Condition: Friday Dose/Route: 1 mg Instruction: 1 x 1 mg tablet Condition: Friday Dose/Route: 1 mg Instruction: 1 x 1 mg tablet Condition: Dose/Route: 2 mg Instruction: 2 x 1 mg tablets Condition: Friday Dose/Route: 1 mg Instruction: 1 x 1 mg tablet Condition: Friday Dose/Route: 1 mg Instruction: 1 x 1 mg tablet Protocol Text: Adjustment Start Date: 10/04/21 INR Value: 3.8 INR Date: 10/04/21 Recheck Date: 10/11/21 Additional Instructions: INR is above therapeutic range hold warfarin today, follow carefully new dosing ok for greens and balance greens and reds in diet atorvastatin 40 mg tablet 1 tab PO BEDTIME 0RF triamcinolone acetonide 0.1 % cream 1 appl topical BID-TID PRN (Reason: Rash) 0RF potassium chloride 20 mEq tablet,ER particles/crystals 1 tab PO DAILY 0RF warfarin [Jantoven] 1 mg tablet 2 mg PO MOSA@1800 0RF iron 75 mg PO DAILY@1500 0RF PreserVision AREDS-2 250-90-40-1 mg capsule 1 tab PO QAM 90 Days Qty: 90 3RF (DME) HINGED KNEE BRACE (left) See Rx Instructions .Route .MEDSUPPLY Qty: 1 0RF Rx Instructions: As directed valsartan 40 mg tablet 40 mg PO DAILY 0RF furosemide 40 mg tablet 40 mg PO DAILY 0RF febuxostat 40 mg tablet 40 mg PO DAILY 0RF aspirin [Adult Low Dose Aspirin] 81 mg tablet,delayed release (DR/EC) 81 mg PO DAILY@1500 0RF Discontinued metoprolol succinate 25 mg tablet extended release 24 hr 25 mg PO BEDTIME 90 Days Qty: 90 3RF metoprolol succinate 100 mg tablet extended release 24 hr 100 mg PO DAILY 90 Days Qty: 90 3RF Discharge Orders: Discharge Order (Routine); Ordered 10/09/21 Ordered By: Renea Bob Diet: advance to usual diet Activity on Discharge: As tolerated Stand Alone Forms: Patient Portal Discharge page Care Plan Goals: Resolution of symptoms Health Concerns: Chronic Atrial fibrillation with RVR Acute on chronic HFpEF Left-sided pleural effusion Acute COPD exacerbation/bronchitis Plan of Treatment: Take all medications as prescribed follow up with your primary care provider as needed your warfarin has been continued, follow INR for warfarin dosing Assessment: See discharge summary
--- NOTE | 2021-10-09 10:11 | W.MHC.F2F ---
Service Date Service Date: 10/09/21 Encounter Date of encounter: 10/09/21 Reasons for Services Signs and symptoms assessed: Weakness, left knee pain, CHF Reason for fdc: CV/CP assess and/or care and monitoring of PT/INR Homebound: Leaving the home is medically contraindicated at this time without the asist of a device and/or another person due th the listed conditions above and below. Reason homebound: unsteady gait / fall risk Certification: Based on the above findings, I certify that this patient is confined to the home and needs intermittent fdc care, physical therapy and/or speech therapy, or continues to need occupational therapy. The patient is under my care, and I have initiated the establishment of the plan of care. The patient will be followed by a physician who will periodically review the plan of care.
[2021-10-09 11:30] VITALS: BP 126/73; PULSE 104; RESP 16; TEMP 36.4; O2SAT 95
[2021-10-09] MEDS: Furosemide 20 MG TABLET PO (12:45)
== END 2021-10-09 15:35 | disposition home health service (06) | DRG 291 ==
LOC: HO.ED 13:15 → HO.EDOVER 17:48 → HO.S3 19:41
PROVIDERS: Physician Assistant; Admitting Provider Physician Assistant Medical; Emergency Provider Student in an Organized Health Care Education/Training Program; PCP Internal Medicine; Visit Provider Nurse Practitioner Acute Care
DX: I11.0 Hypertensive heart disease with heart failure (principal); I50.33 Acute on chronic diastolic (congestive) heart failure; J44.1 Chronic obstructive pulmonary disease with (acute) exacerbation; I48.20 Chronic atrial fibrillation, unspecified; C34.90 Malignant neoplasm of unspecified part of unspecified bronchus or lung; E44.0 Moderate protein-calorie malnutrition; J91.0 Malignant pleural effusion; I25.10 Atherosclerotic heart disease of native coronary artery without angina pectoris; E11.51 Type 2 diabetes mellitus with diabetic peripheral angiopathy without gangrene; E11.40 Type 2 diabetes mellitus with diabetic neuropathy, unspecified; F17.210 Nicotine dependence, cigarettes, uncomplicated; R00.0 Tachycardia, unspecified; Z95.1 Presence of aortocoronary bypass graft; Z20.822 Contact with and (suspected) exposure to COVID-19; Z71.6 Tobacco abuse counseling; Z79.01 Long term (current) use of anticoagulants; Z79.52 Long term (current) use of systemic steroids; Z79.82 Long term (current) use of aspirin; Z79.899 Other long term (current) drug therapy; Z68.20 Body mass index [BMI] 20.0-20.9, adult
CPT/HCPCS: 36415; 71045; 71250; 73560; 80048; 80076; 81001; 83605; 83735; 83880; 84145; 84484; 85025; 85027; 85610; 85730; 87040; 87070; 87205; 87502; 87635; 93005; 94640; 96365; 96367; 97162; 99211; 99284; 99285; J0692; J0696; J1160; J1940; J3370

== ENCOUNTER → 2021-10-10 14:57 | Outpatient (BNVA) | payer MEDICARE, SELFPAY | PROVIDERS: PCP Internal Medicine; Visit Provider Internal Medicine | DX: I48.20 Chronic atrial fibrillation, unspecified (principal); Z79.01 Long term (current) use of anticoagulants; Z51.81 Encounter for therapeutic drug level monitoring | CPT/HCPCS: Q3014 ==

== ENCOUNTER → 2021-10-12 15:14 | Outpatient (BNVA) | payer MEDICARE, SELFPAY | PROVIDERS: PCP Internal Medicine; Visit Provider Internal Medicine | DX: I48.20 Chronic atrial fibrillation, unspecified (principal); Z79.01 Long term (current) use of anticoagulants; Z51.81 Encounter for therapeutic drug level monitoring | CPT/HCPCS: Q3014 ==

== ENCOUNTER → 2021-10-15 11:53 | Outpatient (BNVA) | payer MEDICARE, SELFPAY | PROVIDERS: PCP Internal Medicine; Visit Provider Internal Medicine | DX: I48.20 Chronic atrial fibrillation, unspecified (principal); Z79.01 Long term (current) use of anticoagulants; Z51.81 Encounter for therapeutic drug level monitoring | CPT/HCPCS: 99211 ==

== ENCOUNTER → 2021-10-17 10:47 | Outpatient (REF) | payer MEDICARE, SELFPAY ==
--- NOTE | 2021-10-17 10:51 | HM_ITS ---
Conclusion: 1. Patient was monitored for total period of 3 days 2. Baseline rhythm is atrial fibrillation with average heart of 89 beats per minute 3. No significant pauses or bradycardia noted 4. Two episodes of nonsustained VT, longest lasting 5 beats 5. Total of 566 PVCs accounting for 0.14% of total beats accounting for occasional PVCs 6. No patient reported events MTDD
== END ==
LOC: HO.CARD 10:47
PROVIDERS: Visit Provider Internal Medicine Cardiovascular Disease
DX: I48.91 Unspecified atrial fibrillation (principal)
CPT/HCPCS: 93242

== ENCOUNTER 2021-10-18 07:12 | Outpatient (REF) | payer MEDICARE, SELFPAY ==
--- NOTE | ~2021-10-18 | XR_ITS ---
EXAMINATION: XR KNEE, LEFT XR KNEE STANDING, BILATERAL CLINICAL INFORMATION: Pain. COMPARISON: None TECHNIQUE: AP bilateral standing view of the knees was obtained. Left knee sunrise view. FINDINGS: AP bilateral knee standing: There is severe loss of medial and lateral compartment joint space with periarticular spurring. No bony erosive changes seen. The soft tissues are normal. Inger view of left knee reveals mild periarticular spurring. No visible acute fracture, dislocation or subluxation seen. The soft tissues are normal. XR/XR knee LT 1V IMPRESSION: Moderate degenerative changes medial and lateral compartment both knees on AP standing. There is moderate degenerative changes patellofemoral compartment with lateral periarticular spurring on sunrise view. There is mild diffuse osteopenia without any acute fracture in either knee.
--- NOTE | ~2021-10-18 | XR_ITS ---
EXAMINATION: XR KNEE, LEFT XR KNEE STANDING, BILATERAL CLINICAL INFORMATION: Pain. COMPARISON: None TECHNIQUE: AP bilateral standing view of the knees was obtained. Left knee sunrise view. FINDINGS: AP bilateral knee standing: There is severe loss of medial and lateral compartment joint space with periarticular spurring. No bony erosive changes seen. The soft tissues are normal. Short view of left knee reveals mild periarticular spurring. No visible acute fracture, dislocation or subluxation seen. The soft tissues are normal. XR/XR knee standing BI IMPRESSION: Moderate degenerative changes medial and lateral compartment both knees on AP standing. There is moderate degenerative changes patellofemoral compartment with lateral periarticular spurring on sunrise view. There is mild diffuse osteopenia without any acute fracture in either knee.
== END 2021-10-18 07:13 | disposition home or self-care (01) ==
LOC: HO.HOSX 07:12
PROVIDERS: Visit Provider Physician Assistant
DX: M17.12 Unilateral primary osteoarthritis, left knee (principal); M25.462 Effusion, left knee
CPT/HCPCS: 73560; 73565; 99202; J1040

== ENCOUNTER → 2021-10-19 14:26 | Outpatient (BNVA) | payer MEDICARE, SELFPAY | PROVIDERS: PCP Internal Medicine; Visit Provider Internal Medicine | DX: I48.20 Chronic atrial fibrillation, unspecified (principal); Z79.01 Long term (current) use of anticoagulants; Z51.81 Encounter for therapeutic drug level monitoring | CPT/HCPCS: Q3014 ==

== ENCOUNTER → 2021-10-26 10:24 | Outpatient (BNVA) | payer MEDICARE, SELFPAY | PROVIDERS: PCP Internal Medicine; Visit Provider Internal Medicine | DX: I48.20 Chronic atrial fibrillation, unspecified (principal); Z79.01 Long term (current) use of anticoagulants; Z51.81 Encounter for therapeutic drug level monitoring | CPT/HCPCS: Q3014 ==

== ENCOUNTER 2021-11-09 12:19 | Outpatient (REF) | payer MEDICARE, SELFPAY | END 2021-11-09 12:20 | disposition home or self-care (01) | LOC: HO.LNP 12:19 | PROVIDERS: Pathology Anatomic Pathology & Clinical Pathology; Visit Provider Internal Medicine Medical Oncology | DX: C34.90 Malignant neoplasm of unspecified part of unspecified bronchus or lung (principal) | CPT/HCPCS: 81210; 81235; 81275; 81276; 84075; 88360; 88363; 88374 ==

== ENCOUNTER → 2021-11-22 11:21 | Outpatient (BNVA) | payer MEDICARE, SELFPAY | PROVIDERS: PCP Internal Medicine; Referring Provider Internal Medicine; Visit Provider Internal Medicine Cardiovascular Disease | DX: I50.9 Heart failure, unspecified (principal); I48.20 Chronic atrial fibrillation, unspecified | CPT/HCPCS: 99212 ==

== ENCOUNTER 2021-11-27 10:06 | Outpatient (REF) | payer MEDICARE, SELFPAY ==
[2021-11-27 11:35] LABS: MANUAL DIFF FLAG NO
[2021-11-27 11:43] LABS: Basophils Absolute Auto 0.1 X10*3/uL (0.0-0.2); Eosinophils Absolute Auto 0.2 X10*3/uL (0.0-0.4); Eosinophils Percent Auto 3.1 % (0-4); Hematocrit 39.2 % (42.0-52.0); Hemoglobin 12.7 g/dl (14.0-18.0); Imm Gran Abs Auto 0.02 X10*3/uL (0.00-0.03); Imm Gran Pct Auto 0.4 % (0.0-0.4); Lymphocytes Absolute Auto 0.8 X10*3/uL (1.2-4.9); Lymphocytes Percent Auto 17.3 % (20-40); Mean Corpuscular HGB Conc 32.4 g/dl (31.0-36.0); Mean Corpuscular Hemoglobin 31.8 pg (27.0-33.0); Mean Corpuscular Volume 98.2 fL (80.0-98.0); Mean Platelet Volume 11.9 fL (9.4-12.4); Monocytes Absolute Auto 0.4 X10*3/uL (0.1-1.2); Monocytes Percent Auto 8.6 % (2-11); Neutrophils Absolute Auto 3.4 x10*3/uL (2.0-8.3); Neutrophils Percent Auto 69.6 % (45-73); Platelet Count 160 X10*3/uL (160-400); Red Blood Count 3.99 X10*6/uL (4.60-5.80); Red Cell Distribution Width 19.5 % (11.0-16.0); White Blood Count 4.9 X10*3/uL (4.8-10.8)
[2021-11-27 12:13] LABS: Appearance Urine CLEAR; Color Urine YELLOW; Glucose Urine UA NEG (NEG); Leukocyte Esterase Urine NEG (NEG); Nitrite Urine NEG (NEG); PH 5.5 (5.0-8.0); Specific Gravity - Urine 1.015 (1.005-1.025); Urine Blood NEG (NEG); Urine Ketones NEG (NEG); Urine Protein NEG (NEG-TRACE)
[2021-11-27 12:20] LABS: Alanine Aminotransferase 15 U/L (0-40); Albumin Level 3.8 g/dL (3.5-5.0); Alkaline Phosphatase 86 U/L (39-117); Anion Gap 12 (12-20); Aspartate Amino Transferase 21 U/L (5-37); Bilirubin Total 0.9 mg/dL (0.0-1.0); Blood Urea Nitrogen 28 mg/dL (9-16); Calcium 8.8 mg/dL (8.4-10.2); Carbon Dioxide 34 mmol/L (22-29); Chloride 104 mmol/L (96-108); Cholesterol 96 mg/dL; Estimated Glomerular Filt Rate > 60; Glucose Fasting 128 mg/dL (60-99); HDL Cholesterol 43 mg/dL; LDL Cholesterol Calculated 40 mg/dl; Potassium 4.1 mmol/L (3.3-5.1); Sodium 146 mmol/L (135-145); Total Protein 6.3 g/dL (6.5-8.0); Triglycerides 67 mg/dL
[2021-11-27 12:25] LABS: TSH reflex Free T4 1.03 uIU/mL (0.32-4.0); Vitamin D 25-OH Total 34.2 ng/mL (>30)
[2021-11-27 12:30] LABS: Uric Acid 5.8 mg/dL (3.4-7.0)
[2021-11-27 12:40] LABS: Folate > 20.0 ng/mL (> or = 4.0); Vitamin B12 542 pg/mL (200-900)
== END 2021-11-27 10:07 | disposition home or self-care (01) ==
LOC: HO.HMGCLDS 10:06
PROVIDERS: PCP Internal Medicine; Visit Provider Internal Medicine Cardiovascular Disease
DX: E53.8 Deficiency of other specified B group vitamins (principal); E55.9 Vitamin D deficiency, unspecified; M10.9 Gout, unspecified; I10 Essential (primary) hypertension; E78.00 Pure hypercholesterolemia, unspecified
CPT/HCPCS: 36415; 80053; 80061; 81003; 82306; 82607; 82746; 84443; 84550; 85025

== ENCOUNTER → 2021-11-30 08:18 | Outpatient (BNVA) | payer MEDICARE, SELFPAY | PROVIDERS: PCP Internal Medicine; Visit Provider Physician Assistant | DX: M17.12 Unilateral primary osteoarthritis, left knee (principal) | CPT/HCPCS: 20610; J7318; Q3014 ==

== ENCOUNTER 2021-12-12 06:03 | Outpatient (REF) | payer MEDICARE, SELFPAY ==
[2021-12-11 09:54] LABS: INTERNATIONAL NORM RATIO 2.6 (0.9-1.1); Prothrombin Time 31.2 SEC (10.0-13.1)
[2021-12-11 10:12] LABS: B Type Natriuretic Peptide 492 pg/mL (<100)
[2021-12-11 10:34] LABS: Anion Gap 18 (12-20); Blood Urea Nitrogen 42 mg/dL (9-16); Carbon Dioxide 35 mmol/L (22-29); Chloride 100 mmol/L (96-108); Estimated Glomerular Filt Rate 57; Glucose Random 144 mg/dL (60-115); Potassium 4.5 mmol/L (3.3-5.1); Sodium 148 mmol/L (135-145)
== END 2021-12-12 06:04 | disposition home or self-care (01) ==
LOC: HO.LHD 06:03
PROVIDERS: Internal Medicine Cardiovascular Disease; Visit Provider Internal Medicine
DX: I48.20 Chronic atrial fibrillation, unspecified (principal); I50.9 Heart failure, unspecified; Z79.01 Long term (current) use of anticoagulants
CPT/HCPCS: 36415; 80048; 80162; 83880; 85610

== ENCOUNTER 2021-12-18 10:21 | Outpatient (REF) | payer MEDICARE, SELFPAY ==
[2021-12-18 10:16] LABS: INTERNATIONAL NORM RATIO 1.8 (0.9-1.1); Prothrombin Time 20.9 SEC (10.0-13.1)
== END 2021-12-18 10:22 | disposition home or self-care (01) ==
LOC: HO.LHD 10:21
PROVIDERS: Visit Provider Internal Medicine
DX: Z79.01 Long term (current) use of anticoagulants (principal)
CPT/HCPCS: 36415; 85610; Q3014

== ENCOUNTER 2021-12-25 06:54 | Day surgery (SDC) | payer MEDICARE, SELFPAY ==
[2021-12-19 14:14] VITALS: BMI 20.5
[2021-12-25] VITALS (9 sets, daily range): BP systolic 115–129; BP diastolic 53–65; PULSE 84–98; RESP 16–20; TEMP 36.8–36.9; O2SAT 92–95; BMI 20.2
--- NOTE | 2021-12-25 06:55 | MHC.SHP ---
Pre-Procedural Eval Section A Date of Service: 12/25/21 Section B Chief Complaint: Esophageal obstruction,gastritis Relevant Family History (Specify if Yes): No Relevant Social History: Tobacco Use Present Medications: see Short Stay Collaborative assessment Medical History: Significant History (Back pain Benign essential hypertension Bilateral lower extremity edema CAD (coronary artery disease) Cancer of upper lobe of right lung (~2013) Chronic atrial fibrillation Congestive heart failure COPD (chronic obstructive pulmonary disease) Gout Heart failure with reduced ejection fraction HLD (hy) History of Previous Operations: Relevant previous surgery/procedure and date(s) (History of angioplasty (~12/2020) History of back surgery History of brain surgery (~2003) History of bronchoscopy (~2020) History of cardiac cath (~02/2016) History of colonoscopy (~01/2001) History of lung surgery (~07/2013) History of lung surgery (~2019) History of partial colectomy (~01/2001) H) Allergies: Allergies Allergy/AdvReac Type Severity Reaction Status Date / Time No Known Allergies Allergy Unknown UNKNOWN Verified 12/18/21 14:14 [NO KNOWN ALLERGIES] Review of Systems Sugical H&P ROS: Negative: Constitution, Cardiovascular, Respiratory, Neurological, Psychiatric, Hem-Onc, Allergic/Immunologic, Gastrointestinal, Genitourinary, Musculoskeletal, Integumentary, Endocrine and Eyes/Ears/Nose/Throat Exam Surgical H&P Exam: Normal: HEENT, Normal: Heart, Normal: Lungs, Normal: Extremities, Normal: Abdomen and Normal: Neurological and Significant Findings: Skin (bruising on hands ) Plan Diagnosis/Plan: Unchanged I have reviewed the history and physical and performed a pertinent physical examination on my patient. No changes have occurred unless specified.
[2021-12-25 07:31] LABS: Glucose, Whole Blood 94 mg/dL (60-115)
[2021-12-25] MEDS: Lactated Ringers 1,000 ML 50 ML IVCONT (07:34)
[2021-12-25 07:39] LABS: INTERNATIONAL NORM RATIO 1.3 (0.9-1.1); Prothrombin Time 15.1 SEC (10.0-13.1)
--- NOTE | 2021-12-25 08:38 | W.PM.OPN ---
Operative Note Operative Note Date of Service: 12/25/21 Narrative: Procedure Description: EGD Indication: caspule endoscopy placement Anesthesia: MAC FLEXIBLE TRANSORAL UPPER GASTROINTESTINAL ENDOSCOPY UPPER ENDOSCOPY Consent: Indications for the procedure and potential complications of bleeding, perforation, reaction to medications and missed diagnosis were discussed with the patient and informed consent was obtained. Instrument: Olympus GIF H 190 J mid size upper endoscope Monitoring: Vital signs and clinical assessment, continuous EKG monitoring, Pulse oximetry, Carbon Dioxide monitoring and blood pressure monitoring were done throughout the procedure. Procedure: The patient was placed in the left lateral decubitis position and pre-procedure medications were administered and a bite block was placed. The endoscope was inserted into the mouth and advanced under direct vision to the third part of duodenum. A careful inspection was made as the upper endoscope was withdrawn including a retroflexed examination of the proximal stomach; Findings and interventions are described below. Findings: Larynx:normal Esophagus: GE junction at 37 cm, diaphragm hiatus at 37 cm, mild esophagitis. Stomach: Patchy gastric erythema with erythema with scattered flecks of blood, but no obvious bleeding source. Biopsies were obtained. Grade 2 flap valve on retroflexed examination of the cardia. antrum seemed deformed with swollen folds but no ulcers or lesions seen. Duodenum: mild duodenitis, few lipomas noted Intervention: Biopsies as noted above, capsule placement Impression/Findings: gastritis esophagitis PLAN: anemia is probably from occult GI blood loss from gastritis, and mucosal losses into skin will await capsule results can restart coumadin today
--- NOTE | 2021-12-25 08:50 | HO.ANESPROP2 ---
HPI - Anesthesia Eval Consult details Narrative: 81yo male patient for EGD with capsule placement device PMFSH Active Problems Active Problems: All Active Problems (Updated 11/22/21 @ 11:43 by Honorio Hernández MD) Current use of anticoagulant therapy (Acute) Last dose of warfarin 12/20/21 Pure hypercholesterolemia (Acute) Postural dizziness with near syncope (Acute) Solitary pulmonary nodule (Acute) Shoulder pain, acute (Acute) Chest wall discomfort (Acute) Cardiomyopathy (Acute) Mediastinal lymphadenopathy (Acute) Knee effusion, left (Acute) Bilateral leg edema (Acute) Pleural effusion on left (Acute) Osteoarthritis of left knee (Acute) Medicare annual wellness visit, subsequent (Acute) Congestive heart failure (Acute) Recurrent non-small cell lung cancer (Acute) Anemia (Acute) Chronic atrial fibrillation (Acute) Heart failure with reduced ejection fraction (Acute) about 30% Cancer of upper lobe of right lung (Acute ~2013) COPD (chronic obstructive pulmonary disease) (Acute) Smoker (Acute) CAD (coronary artery disease) (Acute). Denies recent chest pain Benign essential hypertension (Acute) HLD (hyperlipidemia) (Acute) PAD (peripheral artery disease) (Acute) Bilateral lower extremity edema (Acute) Gout (Acute) Neuropathy (Acute) Vitamin D deficiency (Acute) Osteoarthritis (Acute) Osteoarthritis of knees, bilateral (Acute) Lumbar degenerative disc disease (Acute) Back pain (Acute) Past Medical History Medical History Anemia Back pain Benign essential hypertension Bilateral lower extremity edema CAD (coronary artery disease) Cancer of upper lobe of right lung (~2013) Chronic atrial fibrillation Congestive heart failure COPD (chronic obstructive pulmonary disease) Gout Heart failure with reduced ejection fraction HLD (hyperlipidemia) Lumbar degenerative disc disease Neuropathy Osteoarthritis Osteoarthritis of knees, bilateral PAD (peripheral artery disease) Physical deconditioning Recurrent non-small cell lung cancer Smoker Type 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 Family history of problems with anesthesia: No Surgical History Surgical History History of angioplasty (~12/2020) History of back surgery History of brain surgery (~2003) History of bronchoscopy (~2020) History of cardiac cath (~02/2016) History of colonoscopy (~01/2001) History of lung biopsy History of lung surgery (~07/2013) History of lung surgery (~2019) History of partial colectomy (~01/2001) History of right knee surgery (~09/2005) History of thoracentesis (~09/2019) History of Problems with Anesthesia: No Social History Social History Household Members: None Housing: Condominium Are you a primary intensive care unit registered nurse to a significant other at home: No Do you presently have visiting nurse or other home services: No Alcohol intake: never Patient Tobacco Use Status: Current everyday Tobacco user Tobacco use type: Cigarette Cigarette Packs Per Day: 0.5 Cigarettes Per Day: 10 Years Smoked: 50 Smoked in Last 30 Days: Yes Second Hand Smoke Exposure: Yes Use of substances other than those prescribed or required for medical reasons: No Are you DNR?: No Advance Directives: Yes Advance Directives on File: Yes Advance Directives Date on File: 10/05/21 Recently lost weight without trying: No service: No Current occupational status: retired Cognitive needs: No Hearing needs: No Vision needs: Yes Meds Allergies Allergy/AdvReac Type Severity Reaction Status Date / Time No Known Allergies Allergy Unknown UNKNOWN Verified 12/18/21 14:14 [NO KNOWN ALLERGIES] Active Medications: Current Medications Albuterol Sulfate (Albuterol Sulfate (0.083%) 2.5 Mg/3 Ml Vial.Neb) 2.5 mg INHALE ONCE PRN PRN Reason: Shortness of Breath/Wheezing Lactated Ringer's (Lr) 1,000 mls @ 50 mls/hr IVCONT .Q20H RADHA Last Admin: 12/25/21 07:34 Dose: 50 mls/hr Home Medications Medication Instructions Recorded Confirmed Last Taken Type calcium carbonate 600 mg-vitamin 1 tab PO DAILY 07/10/20 12/19/21 10/05/21 History D3 5 mcg (200 unit) tablet multivitamin 1 tab PO DAILY 07/10/20 12/19/21 10/05/21 History nicotine 14 mg/24 hr daily 1 patch transdermal DAILY@1500 07/10/20 11/30/21 10/04/21 History transdermal patch warfarin 1 mg tablet 1 mg PO SUTUWETHFR@1800 07/20/21 12/19/21 10/04/21 History aspirin 81 mg tablet,delayed 81 mg PO DAILY@1500 09/22/21 12/19/21 10/04/21 History release (Adult Low Dose Aspirin) valsartan 40 mg tablet 40 mg PO DAILY 09/22/21 12/19/21 10/05/21 History atorvastatin 40 mg tablet 1 tab PO BEDTIME 10/05/21 12/19/21 10/04/21 History iron 75 mg PO DAILY@1500 10/05/21 12/19/21 10/04/21 History triamcinolone acetonide 0.1 % 1 appl topical BID-TID PRN Rash 10/05/21 12/19/21 10/04/21 History topical cream warfarin 1 mg tablet (Jantoven) 2 mg PO MOSA@1800 10/05/21 12/19/21 10/04/21 History Exam Exam Date and Time: December 25, 2021 0850 Height,Weight and Vital Signs: Height 6 ft 2 in Weight 71.668 kg Last Vital Signs Temp 98.4 F 12/25/21 07:27 Pulse 94 12/25/21 07:27 Resp 17 12/25/21 07:27 BP 118/58 L 12/25/21 07:27 Pulse Ox 95 12/25/21 07:27 O2 Del Method 12/25/21 07:27 Pertinent Lab Results Pertinent Lab Results: Laboratory Tests 12/25/21 12/25/21 07:24 07:27 PT 15.1 H INR 1.3 H POC Glucose 94 Airway Mallampati Class: II TM Dist: >3cm Neck ROM: Full (Painful lesion/ scab left neck about 0.5cm) Denture: Upper and Lower Heart: Irregularly irregular Lungs: CTAB Assessment and Plan Assessment Anesthesia Assessment: Anesthesia Plan Discussed and Chart Reviewed Final Anesthetic Review Family History of Problems with Anesthesia: No History of Problems with Anesthesia: No NPO: Yes ASA Class: IV Final Preanesthetic Review: No Changes in Pt Med Stat, Meds/Allgs Chart Reviewed, Consent Obtained/Reviewed and Anes Risks/Benef Reviewed Patient Risk: Intermediate Procedure Risk: Low Assessment/Block/Sedation in SS: Assess/Block/Sedation-SS Anesthetic Plan Anesthetic Plan: MAC: Disposition: Standard PACU
== END 2021-12-25 12:06 | disposition home or self-care (01) ==
PROVIDERS: Anesthesiology; PCP Internal Medicine; Visit Provider Internal Medicine Gastroenterology
PROC: 0DJ08ZZ Inspection of Upper Intestinal Tract, Via Natural or Artificial Opening Endoscopic (ICD-10-PCS; CPT 43235; principal; 2021-12-25 08:30)
DX: K29.50 Unspecified chronic gastritis without bleeding (principal); K22.2 Esophageal obstruction; K20.80 Other esophagitis without bleeding; K29.80 Duodenitis without bleeding; K44.9 Diaphragmatic hernia without obstruction or gangrene; D17.5 Benign lipomatous neoplasm of intra-abdominal organs; I11.0 Hypertensive heart disease with heart failure; I50.20 Unspecified systolic (congestive) heart failure; I48.20 Chronic atrial fibrillation, unspecified; E55.9 Vitamin D deficiency, unspecified; E11.29 Type 2 diabetes mellitus with other diabetic kidney complication; N28.9 Disorder of kidney and ureter, unspecified; I73.9 Peripheral vascular disease, unspecified; J44.9 Chronic obstructive pulmonary disease, unspecified; Z79.01 Long term (current) use of anticoagulants; Z79.82 Long term (current) use of aspirin; Z79.899 Other long term (current) drug therapy; Z85.118 Personal history of other malignant neoplasm of bronchus and lung; F17.210 Nicotine dependence, cigarettes, uncomplicated
CPT/HCPCS: 43239; 91110; 36415; 82947; 85610; 88305; 88342

== ENCOUNTER 2021-12-28 06:16 | Outpatient (REF) | payer MEDICARE, SELFPAY ==
[2021-12-28 10:56] LABS: INTERNATIONAL NORM RATIO 1.4 (0.9-1.1); Prothrombin Time 15.8 SEC (10.0-13.1)
== END 2021-12-28 06:17 | disposition home or self-care (01) ==
LOC: HO.LHD 06:16
PROVIDERS: Visit Provider Internal Medicine
DX: I48.20 Chronic atrial fibrillation, unspecified (principal); Z51.81 Encounter for therapeutic drug level monitoring; Z79.01 Long term (current) use of anticoagulants
CPT/HCPCS: 36415; 85610; Q3014

== ENCOUNTER 2021-12-29 10:16 | Outpatient (REF) | payer MEDICARE, SELFPAY ==
[2021-12-29 11:55] LABS: Appearance Urine Clear; Color Urine Yellow; Glucose Urine UA Negative (Negative); Leukocyte Esterase Urine Negative (Negative); Nitrite Urine Negative (Negative); Urine Blood Negative (Negative); Urine Ketones Negative (Negative); Urine Protein Negative (Neg-Trace)
[2021-12-29 11:57] LABS: Hematocrit 33.5 % (42.0-52.0); Mean Corpuscular HGB Conc 32.8 g/dl (31.0-36.0); Mean Corpuscular Hemoglobin 32.4 pg (27.0-33.0); Mean Corpuscular Volume 98.5 fL (80.0-98.0); Mean Platelet Volume 11.9 fL (9.4-12.4); Platelet Count 144 X10*3/uL (160-400); Red Cell Distribution Width 16.8 % (11.0-16.0); White Blood Count 4.7 X10*3/uL (4.8-10.8)
[2021-12-29 12:07] LABS: Anion Gap 16 (12-20); Blood Urea Nitrogen 54 mg/dL (9-16); Calcium 9.2 mg/dL (8.4-10.2); Carbon Dioxide 28 mmol/L (22-29); Chloride 104 mmol/L (96-108); Estimated Glomerular Filt Rate > 60; Glucose Random 139 mg/dL (60-115); Potassium 4.6 mmol/L (3.3-5.1); Sodium 143 mmol/L (135-145)
== END 2021-12-29 10:17 | disposition home or self-care (01) ==
LOC: HO.HMGCLDS 10:16
PROVIDERS: Internal Medicine Cardiovascular Disease; Student in an Organized Health Care Education/Training Program; PCP Internal Medicine; Visit Provider Internal Medicine
DX: I10 Essential (primary) hypertension (principal); I42.9 Cardiomyopathy, unspecified; D62 Acute posthemorrhagic anemia
CPT/HCPCS: 36415; 80048; 81003; 85027

== ENCOUNTER 2022-01-01 11:02 | Outpatient (REF) | payer MEDICARE, SELFPAY ==
[2022-01-01 12:22] LABS: INTERNATIONAL NORM RATIO 1.5 (0.9-1.1); Prothrombin Time 17.8 SEC (10.0-13.1)
== END 2022-01-01 11:03 | disposition home or self-care (01) ==
LOC: HO.LHD 11:02
PROVIDERS: Visit Provider Internal Medicine
DX: I48.20 Chronic atrial fibrillation, unspecified (principal); Z51.81 Encounter for therapeutic drug level monitoring; Z79.01 Long term (current) use of anticoagulants
CPT/HCPCS: 36415; 85610; Q3014

== ENCOUNTER 2022-01-04 14:37 | Outpatient (REF) | payer MEDICARE, SELFPAY ==
[2022-01-04 11:57] LABS: Prothrombin Time 23.2 SEC (10.0-13.1)
== END 2022-01-04 14:38 | disposition home or self-care (01) ==
LOC: HO.LHD 14:37
PROVIDERS: Visit Provider Internal Medicine
DX: Z79.01 Long term (current) use of anticoagulants (principal)
CPT/HCPCS: 36415; 85610

== ENCOUNTER 2022-01-11 07:54 | Outpatient (REF) | payer MEDICARE, SELFPAY ==
[2022-01-11 12:34] LABS: INTERNATIONAL NORM RATIO 1.5 (0.9-1.1); Prothrombin Time 17.3 SEC (10.0-13.1)
== END 2022-01-11 07:55 | disposition home or self-care (01) ==
LOC: HO.LHD 07:54
PROVIDERS: Visit Provider Internal Medicine
DX: I48.20 Chronic atrial fibrillation, unspecified (principal); Z51.81 Encounter for therapeutic drug level monitoring; Z79.01 Long term (current) use of anticoagulants
CPT/HCPCS: 36415; 85610; Q3014

== ENCOUNTER 2022-01-15 06:42 | Outpatient (REF) | payer MEDICARE, SELFPAY ==
[2022-01-15 13:09] LABS: INTERNATIONAL NORM RATIO 2.3 (0.9-1.1); Prothrombin Time 27.2 SEC (10.0-13.1)
== END 2022-01-15 06:43 | disposition home or self-care (01) ==
LOC: HO.LHD 06:42
PROVIDERS: Visit Provider Internal Medicine
DX: Z79.01 Long term (current) use of anticoagulants (principal)
CPT/HCPCS: 36415; 85610

== ENCOUNTER 2022-01-23 07:02 | Outpatient (REF) | payer MEDICARE, SELFPAY ==
[2022-01-23 11:40] LABS: INTERNATIONAL NORM RATIO 3.2 (0.9-1.1); Prothrombin Time 38.5 SEC (10.0-13.1)
== END 2022-01-23 07:03 | disposition home or self-care (01) ==
LOC: HO.LHD 07:02
PROVIDERS: Visit Provider Internal Medicine
DX: Z79.01 Long term (current) use of anticoagulants (principal)
CPT/HCPCS: 36415; 85610

== ENCOUNTER 2022-01-29 07:20 | Outpatient (REF) | payer MEDICARE, SELFPAY ==
[2022-01-29 12:06] LABS: INTERNATIONAL NORM RATIO 2.4 (0.9-1.1); Prothrombin Time 29.1 SEC (10.0-13.1)
== END 2022-01-29 07:21 | disposition home or self-care (01) ==
LOC: HO.LHD 07:20
PROVIDERS: Visit Provider Internal Medicine
DX: Z79.01 Long term (current) use of anticoagulants (principal)
CPT/HCPCS: 36415; 85610

== ENCOUNTER 2022-01-31 08:37 | Outpatient (REF) | payer MEDICARE, SELFPAY ==
--- NOTE | ~2022-01-31 | MR_ITS ---
EXAMINATION: MR BRAIN WITHOUT AND WITH CONTRAST CLINICAL INFORMATION: Lung cancer restaging. Rule out metastases. COMPARISON: Brain MRI 07/10/2020. TECHNIQUE: Multiplanar, multisequence imaging of the brain was performed before and after the intravenous administration of 7 mL of Gadavist. FINDINGS: There is a 1.6 x 1.5 cm enhancing metastasis within the right frontal lobe deep white matter with surrounding edema. Susceptibility signal within the lesion most likely represent foci of intralesional hemorrhage or mineralization. No additional metastasis is seen. There is a heterogeneously enhancing extra-axial mass along the midline falx within the frontal region on series 12 image 71/144 measuring approximately 10 mm most compatible with a meningioma. The overall size appears similar compared with 07/10/2020 although no contrast was administered on the prior exam. An additional probable meningioma along the anterior aspect of the left middle cranial fossa measuring 8 mm is also demonstrated, not definitively seen on the prior exam. There is a focus of marrow infiltration within the right frontal calvarium without change compared with 07/10/2020 and corresponds to the region of sclerosis seen on the CT from 07/10/2020. There is no acute infarction, hemorrhage, or extra-axial collection. Right pterional craniotomy changes are noted within aneurysm clips seen in the right MCA bifurcation region. Scattered foci of T2/FLAIR hyperintensity are seen within the cerebral white matter, most typical of chronic microangiopathy. The major arterial flow voids are preserved at the skull base. There is a left lens replacement. A small chronic lacunar infarct is seen within the right cerebellum. MR/MR head/brain wo/w con IMPRESSION: Enhancing metastasis within the right frontal lobe measuring 1.6 cm with surrounding edema. Intralesional hemorrhage/mineralization is seen within the lesion. No evidence of additional metastases. Small foci of extra-axial enhancement along the anterior aspect of the falx and along the anterior aspect the left middle cranial fossa most likely represent small meningiomas.
== END 2022-01-31 08:38 | disposition home or self-care (01) ==
LOC: HO.MRI 08:37
PROVIDERS: Visit Provider Student in an Organized Health Care Education/Training Program
DX: C34.90 Malignant neoplasm of unspecified part of unspecified bronchus or lung (principal)
CPT/HCPCS: 70553; A9585

== ENCOUNTER 2022-02-07 09:24 | Outpatient (REF) | payer MEDICARE, SELFPAY | END 2022-02-07 09:25 | disposition home or self-care (01) | LOC: HO.LHD 09:24 | PROVIDERS: Visit Provider Internal Medicine | DX: I48.20 Chronic atrial fibrillation, unspecified (principal); Z79.01 Long term (current) use of anticoagulants; Z51.81 Encounter for therapeutic drug level monitoring | CPT/HCPCS: 36415; 85610 ==

== ENCOUNTER 2022-02-13 08:29 | Outpatient (REF) | payer MEDICARE, SELFPAY ==
[2022-02-13 13:56] LABS: INTERNATIONAL NORM RATIO 3.6 (0.9-1.1); Prothrombin Time 43.1 SEC (10.0-13.1)
== END 2022-02-13 08:30 | disposition home or self-care (01) ==
LOC: HO.LHD 08:29
PROVIDERS: Visit Provider Internal Medicine
DX: Z79.01 Long term (current) use of anticoagulants (principal)
CPT/HCPCS: 36415; 85610

== ENCOUNTER 2022-02-26 05:58 | Outpatient (REF) | payer MEDICARE, SELFPAY ==
[2022-02-25 11:42] LABS: INTERNATIONAL NORM RATIO 1.6 (0.9-1.1); Prothrombin Time 18.3 SEC (10.0-13.1)
== END 2022-02-26 05:59 | disposition home or self-care (01) ==
LOC: HO.LHD 05:58
PROVIDERS: Visit Provider Internal Medicine
DX: I48.20 Chronic atrial fibrillation, unspecified (principal); Z51.81 Encounter for therapeutic drug level monitoring; Z79.01 Long term (current) use of anticoagulants
CPT/HCPCS: 36415; 85610; Q3014

== ENCOUNTER 2022-02-26 06:01 | Outpatient (REF) | payer MEDICARE, SELFPAY ==
[2022-02-21 11:47] LABS: INTERNATIONAL NORM RATIO 1.3 (0.9-1.1); Prothrombin Time 15.2 SEC (10.0-13.1)
== END 2022-02-26 06:02 | disposition home or self-care (01) ==
LOC: HO.LHD 06:01
PROVIDERS: Visit Provider Internal Medicine
DX: Z13.89 Encounter for screening for other disorder (principal)
CPT/HCPCS: 36415; 85610; Q3014

== ENCOUNTER 2022-03-01 12:32 | Outpatient (REF) | payer MEDICARE, SELFPAY ==
[2022-03-01 10:49] LABS: INTERNATIONAL NORM RATIO 3.1 (0.9-1.1); Prothrombin Time 37.7 SEC (10.0-13.1)
== END 2022-03-01 12:33 | disposition home or self-care (01) ==
LOC: HO.LHD 12:32
PROVIDERS: Visit Provider Internal Medicine
DX: Z79.01 Long term (current) use of anticoagulants (principal)
CPT/HCPCS: 36415; 85610

== ENCOUNTER 2022-03-05 06:44 | Outpatient (REF) | payer MEDICARE, SELFPAY ==
[2022-03-05 12:11] LABS: INTERNATIONAL NORM RATIO 3.1 (0.9-1.1); Prothrombin Time 37.9 SEC (10.0-13.1)
== END 2022-03-05 06:45 | disposition home or self-care (01) ==
LOC: HO.LHD 06:44
PROVIDERS: Visit Provider Internal Medicine
DX: Z79.01 Long term (current) use of anticoagulants (principal)
CPT/HCPCS: 36415; 85610

== ENCOUNTER → 2022-03-11 09:01 | Outpatient (BNVA) | payer MEDICARE, SELFPAY | PROVIDERS: PCP Internal Medicine; Referring Provider Internal Medicine; Visit Provider Internal Medicine Cardiovascular Disease | DX: I50.9 Heart failure, unspecified (principal); I48.20 Chronic atrial fibrillation, unspecified | CPT/HCPCS: 99212 ==

== ENCOUNTER 2022-03-12 06:05 | Outpatient (REF) | payer MEDICARE, SELFPAY ==
[2022-03-12 12:01] LABS: INTERNATIONAL NORM RATIO 3.3 (0.9-1.1); Prothrombin Time 39.4 SEC (10.0-13.1)
== END 2022-03-12 06:06 | disposition home or self-care (01) ==
LOC: HO.LHD 06:05
PROVIDERS: Visit Provider Internal Medicine
DX: Z79.01 Long term (current) use of anticoagulants (principal)
CPT/HCPCS: 36415; 85610

== ENCOUNTER 2022-03-17 10:17 | Inpatient (IN) | payer MEDICARE, SELFPAY ==
[2022-03-17] VITALS (7 sets, daily range): BP systolic 119–152; BP diastolic 59–88; PULSE 88–114; RESP 26–40; TEMP 36.4–36.7; O2SAT 94–98; BMI 22.9
--- NOTE | ~2022-03-17 | CT_ITS ---
EXAMINATION: CT CHEST WITHOUT CONTRAST CLINICAL INFORMATION: Hypoxia, pleural effusions with history of lung cancer COMPARISON: Chest radiograph earlier today, CT chest 10/05/2021 TECHNIQUE: Multidetector volumetric CT imaging of the chest was done. Axial MIP volume rendering provided. Sagittal and coronal reformatted images were obtained. This CT examination was performed using dose optimization techniques as appropriate, variously including the following: *Automated exposure control *Adjustment of mA and/or kV according to patient size (this includes techniques or standardized protocols for targeted exams where dose is matched to indication/reason for exam; i.e. extremities or head) *Use of iterative reconstruction technique DLP: 228 mGy-cm FINDINGS: LUNGS AND PLEURA: Postop changes are present in the right upper lobe with a suture line present. There is increase in size of the previously noted FDG avid right upper lung mass previously measuring 2.3 x 2.3 x 2.1 cm in maximal transverse dimension currently measuring 4.6 x 2.9 3.0 cm (5:93 compare prior 5:127). A mass extends back towards the right hilar region encasing what appears to be the suture line. This latter component appears unchanged. Background changes of severe COPD are present. Again seen is a left pleural effusion and associated left lower lobe atelectasis, slightly increased from prior. A significant right effusion is not present. MEDIASTINUM: The heart is enlarged. Extensive coronary calcification is seen. No gross mediastinal lymphadenopathy is present. Some small right-sided pretracheal/precarinal lymph nodes are seen. CORONARY ARTERY CALCIFICATION: Extensive AXILLA: No lymphadenopathy. UPPER ABDOMEN: Layering gallstones are present in the gallbladder. OSSEOUS STRUCTURES: There are marked degenerative changes seen in the spine. No bony destructive lesions to suggest bone metastases CT/CT chest wo IV con IMPRESSION: 1. Increase in size of right upper lobe mass. 2. Unchanged left pleural effusion. 3. Other incidental findings as described above including severe COPD and extensive coronary calcification. Fleischner guidelines were followed.
--- NOTE | ~2022-03-17 | XR_ITS ---
EXAMINATION: XR CHEST CLINICAL INFORMATION: Pleural effusion. Shortness of breath. COMPARISON: Previous chest x-ray most recent March 2013 TECHNIQUE: Frontal view of the chest was obtained. FINDINGS: The cardiac silhouette is enlarged but stable. There are postsurgical changes to the right upper lung. Atelectasis or consolidation at the left lung base. The right lung clear. There is no right pleural effusion. There is no pneumothorax. Degenerative changes of the spine. There is a sclerotic lesion left small humerus that is stable from old exams probably representing a bone infarct or enchondroma. XR/XR chest 1V IMPRESSION: Stable enlargement of the cardiac silhouette. Atelectasis/consolidation at the left lung base and small left pleural effusion.
--- NOTE | ~2022-03-17 | XR_ITS ---
EXAMINATION: XR CHEST CLINICAL INFORMATION: Shortness of breath COMPARISON: October 09, 2021 TECHNIQUE: AP portable view of the chest was obtained. FINDINGS: Patient is status post right upper lobe surgery with suture line and clips present. There is also an adjacent soft tissue density which appears somewhat more prominent than on study of October 07, 2021. There is right apical pleural-parenchymal scarring seen. No pneumothorax is seen. There has been some improvement in left pleural effusion. There remains some retrocardiac airspace disease which may be related to atelectasis or pneumonitis. Emphysematous change is present. There is some density seen overlying the right hemithorax is difficult to tell if there is some parenchymal density present versus and of ribs and cartilage. The cardiopericardial silhouette is enlarged. No evidence of airspace edema. 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 XR/XR chest 1V IMPRESSION: Improved left pleural effusion. Question increase in soft tissue density in region of previous surgery compared to study of October 07, 2021. Emphysematous change. Question patchy regions of disease overlying the right lung versus probable end of ribs.
--- NOTE | 2022-03-17 10:42 | ED_ITS ---
HPI - SOB/Dyspnea General Chief Complaint: Dyspnea Stated Complaint: sob Time Seen by Provider: 03/17/22 10:29 Source: patient and EMS Mode of arrival: EMS Limitations: no limitations History of Present Illness HPI Narrative: 82-year-old male came in for evaluation shortness of breath. Patient with history of lung cancer with metastasis to the brain, COPD, CHF, actively a smoker presented with shortness of breath for the past 3-4 days no CP, symptoms worsening with exertion, also complaining of coughing with white/yellow sputum, initially by EMS patient was hypoxic at home 84% on room air patient was placed on CPAP and transported to the hospital in the hospital patient was placed on OxyMask his O2 sat was 100%. Patient still feels short of breath. Related Data Home Medications Medication Instructions Recorded Confirmed calcium carbonate 600 mg-vitamin 1 tab PO DAILY 07/10/20 03/11/22 D3 5 mcg (200 unit) tablet multivitamin 1 tab PO DAILY 07/10/20 03/11/22 nicotine 14 mg/24 hr daily 1 patch transdermal DAILY@1500 07/10/20 03/11/22 transdermal patch warfarin 1 mg tablet 1 mg PO SUTUWETHFR@1800 07/20/21 03/12/22 aspirin 81 mg tablet,delayed 81 mg PO DAILY@1500 09/22/21 03/11/22 release (Adult Low Dose Aspirin) valsartan 40 mg tablet 40 mg PO DAILY 09/22/21 03/11/22 iron 75 mg PO DAILY@1500 10/05/21 02/25/22 triamcinolone acetonide 0.1 % 1 appl topical BID-TID PRN Rash 10/05/21 03/11/22 topical cream warfarin 1 mg tablet (Jantoven) 2 mg PO MOSA@1800 10/05/21 03/12/22 atorvastatin 40 mg tablet 40 mg PO BEDTIME 03/11/22 03/11/22 febuxostat 40 mg tablet 40 mg PO DAILY for gout pain 03/11/22 03/11/22 Previous Rx's Medication Instructions Recorded albuterol sulfate 90 mcg/actuation 2 puff inhalation Q6H PRN 11/30/20 aerosol inhaler (Ventolin HFA) shortness of breath or wheezing #6.7 grams HINGED KNEE BRACE (left) #1 ea 08/31/21 vit C 250 mg-vit E 90 mg-zinc 40 1 tab PO QAM 90 days #90 caps 08/31/21 mg-copper 1 [id number] capsule (PreserVision AREDS-2) guaifenesin 600 mg tablet, 600 mg PO BID #9 tabs 10/09/21 extended release 12 hr (Mucinex) lidocaine 4 % topical patch 1 patch transdermal DAILY #30 ea 10/09/21 (Lidocaine Pain Relief) digoxin 125 mcg (0.125 mg) tablet 125 mcg PO .COMPLEX #90 tabs 12/12/21 furosemide 40 mg tablet 40 mg PO .COMPLEX 30 days #45 tabs 12/12/21 polyethylene glycol 3350 17 17 g PO BID #238 grams 12/27/21 gram/dose oral powder (Miralax) folic acid 1 mg tablet 1 mg PO DAILY #90 tabs 01/24/22 potassium chloride 20 mEq 20 meq PO DAILY #30 tabs 02/18/22 tablet,extended release(part/cryst) metoprolol succinate 50 mg 50 mg PO TID #90 tabs 03/11/22 tablet,extended release 24 hr Allergies Allergy/AdvReac Type Severity Reaction Status Date / Time No Known Allergies Allergy Unknown UNKNOWN Verified 03/12/22 15:55 [NO KNOWN ALLERGIES] Review of Systems Review of Systems: All other systems are reviewed and are negative Constitutional: Reports as per HPI and Reports no additional constitutional complaints Eyes: Reports as per HPI and Reports no additional eye complaints Reports system reviewed and no additional complaints, except as documented Cardiovascular: Reports as per HPI and Reports no additional cardiovascular complaints Respiratory: Reports as per HPI and Reports no additional respiratory complaints Gastrointestinal: Reports as per HPI and Reports no additional gastrointestinal complaints Genitourinary: Reports no additional female genitourinary complaints Musculoskeletal: Reports no additional musculoskeletal complaints Skin/Breast: Reports system reviewed and no additional complaints, except as docu Psychiatric: Reports no additional psychiatric complaints Endocrine: Reports no additional endocrine complaints Hematologic/Lymphatic: Reports no additional hematologic/lymphatic complaints Allergic/Immunologic: Reports no additional allergic/immunologic complaints Reports system reviewed and no additional complaints, except as documented and Reports Abnormal speech present [facility] Past Medical History Medical History Anemia Back pain Benign essential hypertension Bilateral lower extremity edema CAD (coronary artery disease) Cancer of upper lobe of right lung (~2013) Chronic atrial fibrillation Congestive heart failure COPD (chronic obstructive pulmonary disease) Gout Heart failure with reduced ejection fraction HLD (hyperlipidemia) Lumbar degenerative disc disease Neuropathy Osteoarthritis Osteoarthritis of knees, bilateral PAD (peripheral artery disease) Physical deconditioning Recurrent non-small cell lung cancer Smoker Type 2 diabetes mellitus with other diabetic kidney complication Vitamin D deficiency Wears dentures Surgical History History of angioplasty (~12/2020) History of back surgery History of brain surgery (~2003) History of bronchoscopy (~2020) History of cardiac cath (~02/2016) History of colonoscopy (~01/2001) History of lung biopsy History of lung surgery (~07/2013) History of lung surgery (~2019) History of partial colectomy (~01/2001) History of right knee surgery (~09/2005) History of thoracentesis (~09/2019) Family History Family History Mother No problems noted. Social History Social History Household Members: None [facility]: [facility] Are you a primary care worker to a significant other at home: No Do you presently have visiting nurse or other home services: No Alcohol intake: never Patient Tobacco Use Status: Current everyday Tobacco user Tobacco use type: Cigarette Cigarette Packs Per Day: 0.5 Cigarettes Per Day: 10 Years Smoked: 50 Second Hand Smoke Exposure: Yes Advance Directives: Yes Advance Directives on File: Yes Advance Directives Date on File: 10/05/21 service: No Current occupational status: retired Cognitive needs: Yes (cane) Hearing needs: No Vision needs: Yes Physical Exam Vital Signs: Vital Signs: Last Vital Signs Temp 97.7 F 03/17/22 10:23 Pulse 92 03/17/22 11:13 Resp 36 H 03/17/22 11:13 BP 145/77 H 03/17/22 10:23 Pulse Ox 98 03/17/22 10:23 O2 Del Method 03/17/22 10:23 BMI result Body Mass Index 22.9 Vital signs have been reviewed as appeared to be correct. Blood pressure normal. Heart rate normal. Respiration rate normal. Temperature normal. Oxygen saturation normal. Appearance: Alert. Oriented X3. Mild acute distress. Head: Normal external exam. Normocephalic. Atraumatic. No Hoang signs noted. No raccoon eyes noted Eyes: PERRLA. EOMI. Conjunctiva and sclera normal. Eyelids normal. ENT: TM's Normal. Pharynx normal. Uvula midline. Moist mucous membranes. No trismus noted. No drooling noted. No muffled voice noted. Neck: Normal inspection. Neck supple. FROM. No adenopathy. Thyroid Normal. No meningeal signs. No neck mass noted. CVS: Normal heart rate and rhythm. Heart sound normal. No murmurs noted. Pulses normal throughout. Respiratory: No respiratory distress. Painless inspiration. Breath sounds n ormal. Mild diffuse expiratory wheezing with bilateral basilar rales with prolonged expiration. Chest nontender. No accessory muscle usage noted or decreased air movement noted. Abdomen: Soft and nontender. Bowel sounds normal in all 4 quadrants. No distention noted. No organomegaly noted. No visible injury noted. Back: No CVA tenderness. Full range of motion noted. Skin: Skin warm and dry. Normal skin color. Normal skin turgor. No rashes/lesions/lacerations noted. Extremities: No lower extremity edema. Extremities exhibit normal range of motion. Extremities nontender. Neuro: Oriented X 3. Cranial nerve exam: II-XII are grossly intact No motor deficit. No sensory deficit. Reflexes normal. Course Course Course Narrative: 82-year-old male history of COPD/CHF/lung cancer/active smoker presented with coughing and shortness of breath. 1. COPD exacerbation improved on bronchodilator/Solu-Medrol and magnesium. 2.CHF exacerbation will diurese. 3. Chest x-ray is not showing discrete pneumonia patient was covered with empirical ceftriaxone and Zithromax. 4. PE is not likely diagnosis however patient is hypocoagulable with INR of 4.9. 4. Patient is on anticoagulation for atrial fibrillation INR is 4.9 with no sign of active bleeding will hold the next dose of Coumadin. Medications Administered Discontinued Medications Generic Name Dose Route Start Last Admin Trade Name Freq PRN Reason Stop Dose Admin Albuterol Sulfate 2.5 mg 03/17/22 10:47 03/17/22 11:12 Albuterol Sulfate (0.083%) 2.5 Mg/3 Ml Vial.Neb INHALE 03/17/22 10:48 2.5 mg ONCE ONE Administration Albuterol/Ipratropium 3 ml 03/17/22 10:47 03/17/22 11:12 Albuterol/Iprat 2.5/0.5mg 3 Ml Ampul.Neb INHALE 03/17/22 10:48 3 ml ONCE ONE Administration Furosemide 40 mg 03/17/22 10:47 03/17/22 10:59 Furosemide 40 Mg/4 Ml Vial IVPUSH 03/17/22 10:48 40 mg ONCE ONE Administration Protocol Ceftriaxone Sodium 1 gm/ 50 mls @ 100 mls/hr 03/17/22 10:47 03/17/22 10:59 Sodium Chloride IV 03/17/22 11:16 100 mls/hr ONCE ONE Administration Azithromycin 500 mg/ Sodium 250 mls @ 125 mls/hr 03/17/22 10:47 03/17/22 11:23 Chloride IV 03/17/22 12:46 125 mls/hr ONCE ONE Administration Methylprednisolone Sodium Succinate 125 mg 03/17/22 10:47 03/17/22 10:59 Methylprednisolone Sod Succ 125 Mg/2 Ml Vial IVPUSH 03/17/22 10:48 125 mg ONCE ONE Administration MDM - SOB/Dyspnea Lab Data Attestation: I reviewed the patient's lab results. Result diagrams: 03/17/22 11:09 03/17/22 11:09 Labs: Lab Results 03/17/22 03/17/22 03/17/22 Range/Units 11:09 11:09 11:09 WBC 4.2 L (4.8-10.8) X10*3/uL RBC 3.75 L (4.60-5.80) X10*6/uL Hgb 12.7 L (14.0-18.0) g/dl Hct 40.0 L (42.0-52.0) % MCV 106.7 H (80.0-98.0) fL MCH 33.9 H (27.0-33.0) pg MCHC 31.8 (31.0-36.0) g/dl RDW 15.8 (11.0-16.0) % Plt Count 155 L (160-400) X10*3/uL MPV 11.4 (9.4-12.4) fL Immature Gran % (Auto) 0.0 (0.0-0.4) % Neut % (Auto) 71.6 (45-73) % Lymph % (Auto) 14.9 L (20-40) % [place] % (Auto) 10.4 (2-11) % Eos % (Auto) 2.4 (0-4) % Baso % (Auto) 0.7 (0-2) % Lymph # (Auto) 0.6 L (1.2-4.9) X10*3/uL [place] # (Auto) 0.4 (0.1-1.2) X10*3/uL Eos # (Auto) 0.1 (0.0-0.4) X10*3/uL Baso # (Auto) 0.0 (0.0-0.2) X10*3/uL Abs Immat Gran (auto) 0.00 (0.00-0.03) X10*3/uL Absolute Neuts (auto) 3.0 (2.0-8.3) x10*3/uL Absolute Nucleated RBC 0.000 (0.0-0.012) X10*3/uL Nucleated RBC % (auto) 0.0 (0.0-0.2) /100WBC PT (10.0-13.1) SEC INR (0.9-1.1) APTT (26.0-36.4) SEC Sodium 148 H (135-145) mmol/L Potassium 4.4 (3.3-5.1) mmol/L Chloride 104 (96-108) mmol/L Carbon Dioxide 36 H (22-29) mmol/L Anion Gap 12 (12-20) BUN 34 H (9-16) mg/dL Creatinine 1.10 (0.5-1.4) mg/dL Estim Creat Clear Calc 56.7 Estimated GFR > 60 Random Glucose 113 (60-115) mg/dL Lactic Acid (0.5-2.0) mmol/L Calcium 8.8 (8.4-10.2) mg/dL Total Bilirubin 0.7 (0.0-1.0) mg/dL Direct Bilirubin 0.4 (0.0-0.5) mg/dL AST 28 (5-37) U/L ALT 22 (0-40) U/L Alkaline Phosphatase 80 (39-117) U/L Troponin I High Sens 44.0 H D (<3.5-35.0) ng/L B-Natriuretic Peptide (<100) pg/mL Total Protein 5.9 L (6.5-8.0) g/dL Albumin 3.4 L (3.5-5.0) g/dL Lipase 19 (8-78) U/L Urine Color Urine Appearance Urine pH (5.0-9.0) Ur Specific [place] (1.005-1.025) Urine Protein (Neg-Trace) mg/dL Urine Glucose (UA) (Negative) mg/dL Urine Ketones (Negative) mg/dL Urine Blood (Negative) Urine Nitrite (Negative) Ur Leukocyte Esterase (Negative) Urine RBC (0-2) /HPF Urine WBC (0-5) /HPF Ur Squamous Epith Cells (0-2) /HPF Urine Bacteria (None Seen) Hyaline Casts (0-2) /LPF COVID-19 (DAMASO) (Negative) COVID-19 Clin Com 03/17/22 03/17/22 03/17/22 Range/Units 11:09 11:09 11:09 WBC (4.8-10.8) X10*3/uL RBC (4.60-5.80) X10*6/uL Hgb (14.0-18.0) g/dl Hct (42.0-52.0) % MCV (80.0-98.0) fL MCH (27.0-33.0) pg MCHC (31.0-36.0) g/dl RDW (11.0-16.0) % Plt Count (160-400) X10*3/uL MPV (9.4-12.4) fL Immature Gran % (Auto) (0.0-0.4) % Neut % (Auto) (45-73) % Lymph % (Auto) (20-40) % [place] % (Auto) (2-11) % Eos % (Auto) (0-4) % Baso % (Auto) (0-2) % Lymph # (Auto) (1.2-4.9) X10*3/uL [place] # (Auto) (0.1-1.2) X10*3/uL Eos # (Auto) (0.0-0.4) X10*3/uL Baso # (Auto) (0.0-0.2) X10*3/uL Abs Immat Gran (auto) (0.00-0.03) X10*3/uL Absolute Neuts (auto) (2.0-8.3) x10*3/uL Absolute Nucleated RBC (0.0-0.012) X10*3/uL Nucleated RBC % (auto) (0.0-0.2) /100WBC PT 60.1 H (10.0-13.1) SEC INR 4.9 H (0.9-1.1) APTT 47.1 H (26.0-36.4) SEC Sodium (135-145) mmol/L Potassium (3.3-5.1) mmol/L Chloride (96-108) mmol/L Carbon Dioxide (22-29) mmol/L Anion Gap (12-20) BUN (9-16) mg/dL Creatinine (0.5-1.4) mg/dL Estim Creat Clear Calc Estimated GFR Random Glucose (60-115) mg/dL Lactic Acid 1.0 (0.5-2.0) mmol/L Calcium (8.4-10.2) mg/dL Total Bilirubin (0.0-1.0) mg/dL Direct Bilirubin (0.0-0.5) mg/dL AST (5-37) U/L ALT (0-40) U/L Alkaline Phosphatase (39-117) U/L Troponin I High Sens (<3.5-35.0) ng/L B-Natriuretic Peptide 1021 H (<100) pg/mL Total Protein (6.5-8.0) g/dL Albumin (3.5-5.0) g/dL Lipase (8-78) U/L Urine Color Urine Appearance Urine pH (5.0-9.0) Ur Specific [place] (1.005-1.025) Urine Protein (Neg-Trace) mg/dL Urine Glucose (UA) (Negative) mg/dL Urine Ketones (Negative) mg/dL Urine Blood (Negative) Urine Nitrite (Negative) Ur Leukocyte Esterase (Negative) Urine RBC (0-2) /HPF Urine WBC (0-5) /HPF Ur Squamous Epith Cells (0-2) /HPF Urine Bacteria (None Seen) Hyaline Casts (0-2) /LPF COVID-19 (DAMASO) (Negative) COVID-19 Clin Com 03/17/22 03/17/22 Range/Units 11:18 11:25 WBC (4.8-10.8) X10*3/uL RBC (4.60-5.80) X10*6/uL Hgb (14.0-18.0) g/dl Hct (42.0-52.0) % MCV (80.0-98.0) fL MCH (27.0-33.0) pg MCHC (31.0-36.0) g/dl RDW (11.0-16.0) % Plt Count (160-400) X10*3/uL MPV (9.4-12.4) fL Immature Gran % (Auto) (0.0-0.4) % Neut % (Auto) (45-73) % Lymph % (Auto) (20-40) % [place] % (Auto) (2-11) % Eos % (Auto) (0-4) % Baso % (Auto) (0-2) % Lymph # (Auto) (1.2-4.9) X10*3/uL [place] # (Auto) (0.1-1.2) X10*3/uL Eos # (Auto) (0.0-0.4) X10*3/uL Baso # (Auto) (0.0-0.2) X10*3/uL Abs Immat Gran (auto) (0.00-0.03) X10*3/uL Absolute Neuts (auto) (2.0-8.3) x10*3/uL Absolute Nucleated RBC (0.0-0.012) X10*3/uL Nucleated RBC % (auto) (0.0-0.2) /100WBC PT (10.0-13.1) SEC INR (0.9-1.1) APTT (26.0-36.4) SEC Sodium (135-145) mmol/L Potassium (3.3-5.1) mmol/L Chloride (96-108) mmol/L Carbon Dioxide (22-29) mmol/L Anion Gap (12-20) BUN (9-16) mg/dL Creatinine (0.5-1.4) mg/dL Estim Creat Clear Calc Estimated GFR Random Glucose (60-115) mg/dL Lactic Acid (0.5-2.0) mmol/L Calcium (8.4-10.2) mg/dL Total Bilirubin (0.0-1.0) mg/dL Direct Bilirubin (0.0-0.5) mg/dL AST (5-37) U/L ALT (0-40) U/L Alkaline Phosphatase (39-117) U/L Troponin I High Sens (<3.5-35.0) ng/L B-Natriuretic Peptide (<100) pg/mL Total Protein (6.5-8.0) g/dL Albumin (3.5-5.0) g/dL Lipase (8-78) U/L Urine Color Yellow Urine Appearance Clear Urine pH 5.5 (5.0-9.0) Ur Specific [place] 1.010 (1.005-1.025) Urine Protein 30 (1+) H (Neg-Trace) mg/dL Urine Glucose (UA) Negative (Negative) mg/dL Urine Ketones Negative (Negative) mg/dL Urine Blood Trace H (Negative) Urine Nitrite Negative (Negative) Ur Leukocyte Esterase Negative (Negative) Urine RBC 0-2 (0-2) /HPF Urine WBC 0-5 (0-5) /HPF Ur Squamous Epith Cells 0-2 (0-2) /HPF Urine Bacteria None Seen (None Seen) Hyaline Casts 0-2 (0-2) /LPF COVID-19 (DAMASO) Negative (Negative) COVID-19 Clin Com See Note Imaging Data Chest x-ray: Attestation: I personally reviewed and interpreted this imaging study as follows: Radiologist's impression: Improved left pleural effusion. ? Question increase in soft tissue density in region of previous surgery compared to study of October 07, 2021. ? Emphysematous change. ? Question patchy regions of disease overlying the right lung versus probable end of ribs. ECG Data Attestation: I personally reviewed and interpreted this ECG as follows: Interpretation: Atrial fibrillation at 100 beats per minutes, right axis deviation. Discharge Plan Discharge Clinical Impression: Acute exacerbation of chronic obstructive pulmonary disease, Acute exacerbation of CHF (congestive heart failure), Lung cancer, Supratherapeutic INR Patient Disposition: Admitted As Inpatient Prescriptions: No Action digoxin 125 mcg (0.125 mg) tablet 125 mcg PO .COMPLEX Qty: 90 1RF Rx Instructions: 125 mcg orally 5 days weekly; furosemide 40 mg tablet 40 mg PO .COMPLEX 30 Days Qty: 45 5RF Rx Instructions: 40 mg orally 1 tablet in am and 1/2 tablet at noon if needed for weight gain, swelling; polyethylene glycol 3350 [Miralax] 17 gram/dose powder 17 g PO BID Qty: 238 1RF folic acid 1 mg tablet 1 mg PO DAILY Qty: 90 0RF potassium chloride 20 mEq tablet,ER particles/crystals 20 meq PO DAILY Qty: 30 3RF multivitamin Tablet 1 tab PO DAILY nicotine 14 mg/24 hr Patch 24 Hour 1 patch TRANSDERMAL DAILY@1500 calcium carbonate-vitamin D3 600 mg(1,500mg) -200 unit Tablet 1 tab PO DAILY albuterol sulfate [Ventolin HFA] 90 mcg/actuation HFA aerosol inhaler 2 puff inhalation Q6H PRN (Reason: shortness of breath or wheezing) Qty: 6.7 0RF warfarin 1 mg tablet 1 mg PO SUTUWETHFR@1800 Protocol: Dose Management Condition: Friday (Week One) Dose/Route: 2 mg Instruction: 2 x 1 mg tablets Condition: Friday Dose/Route: 1 mg Instruction: 1 x 1 mg tablet Condition: Friday Dose/Route: 2 mg Instruction: 2 x 1 mg tablets Condition: Friday Dose/Route: 1 mg Instruction: 1 x 1 mg tablet Condition: Dose/Route: 2 mg Instruction: 2 x 1 mg tablets Condition: Friday Dose/Route: 1 mg Instruction: 1 x 1 mg tablet Condition: Friday Dose/Route: 2 mg Instruction: 2 x 1 mg tablets Condition: Friday (Week Two) Dose/Route: 2 mg Instruction: 2 x 1 mg tablets Condition: Friday Dose/Route: 1 mg Instruction: 1 x 1 mg tablet Condition: Friday Dose/Route: 2 mg Instruction: 2 x 1 mg tablets Condition: Friday Dose/Route: 1 mg Instruction: 1 x 1 mg tablet Condition: Dose/Route: 2 mg Instruction: 2 x 1 mg tablets Condition: Friday Dose/Route: 1 mg Instruction: 1 x 1 mg tablet Condition: Friday Dose/Route: 2 mg Instruction: 2 x 1 mg tablets Protocol Text: Adjustment Start Date: Friday03/12/22 INR Value: 3.3 INR Date: 03/12/22 Recheck Date: 03/19/22 Additional Instructions: INR is above range and has been trending above range decrease weekly dose to 1mg x 3 days (start Friday) and 2mg x 4 days have a dark leafy green today then balance greens and reds in diet triamcinolone acetonide 0.1 % cream 1 appl topical BID-TID PRN (Reason: Rash) warfarin [Jantoven] 1 mg tablet 2 mg PO MOSA@1800 Protocol: Dose Management Condition: Friday (Week One) Dose/Route: 2 mg Instruction: 2 x 1 mg tablets Condition: Friday Dose/Route: 1 mg Instruction: 1 x 1 mg tablet Condition: Friday Dose/Route: 2 mg Instruction: 2 x 1 mg tablets Condition: Friday Dose/Route: 1 mg Instruction: 1 x 1 mg tablet Condition: Dose/Route: 2 mg Instruction: 2 x 1 mg tablets Condition: Friday Dose/Route: 1 mg Instruction: 1 x 1 mg tablet Condition: Friday Dose/Route: 2 mg Instruction: 2 x 1 mg tablets Condition: Friday (Week Two) Dose/Route: 2 mg Instruction: 2 x 1 mg tablets Condition: Friday Dose/Route: 1 mg Instruction: 1 x 1 mg tablet Condition: Friday Dose/Route: 2 mg Instruction: 2 x 1 mg tablets Condition: Friday Dose/Route: 1 mg Instruction: 1 x 1 mg tablet Condition: Dose/Route: 2 mg Instruction: 2 x 1 mg tablets Condition: Friday Dose/Route: 1 mg Instruction: 1 x 1 mg tablet Condition: Friday Dose/Route: 2 mg Instruction: 2 x 1 mg tablets Protocol Text: Adjustment Start Date: Friday03/12/22 INR Value: 3.3 INR Date: 03/12/22 Recheck Date: 03/19/22 Additional Instructions: INR is above range and has been trending above range decrease weekly dose to 1mg x 3 days (start Friday) and 2mg x 4 days have a dark leafy green today then balance greens and reds in diet iron 75 mg PO DAILY@1500 lidocaine [Lidocaine Pain Relief] 4 % Adhesive Patch,Medicated 1 patch transdermal DAILY Qty: 30 0RF Protocol: Apply to: Apply to: left knee guaifenesin [Mucinex] 600 mg Tablet Extended Release 12hr 600 mg PO BID Qty: 9 0RF atorvastatin 40 mg tablet 40 mg PO BEDTIME PreserVision AREDS-2 250-90-40-1 mg capsule 1 tab PO QAM 90 Days Qty: 90 3RF (DME) HINGED KNEE BRACE (left) See Rx Instructions .Route .MEDSUPPLY Qty: 1 0RF Rx Instructions: As directed valsartan 40 mg tablet 40 mg PO DAILY aspirin [Adult Low Dose Aspirin] 81 mg tablet,delayed release (DR/EC) 81 mg PO DAILY@1500 febuxostat 40 mg tablet 40 mg PO DAILY metoprolol succinate 50 mg tablet extended release 24 hr 50 mg PO TID Qty: 90 3RF Protocol: Hold for SBP/HR < HOLD for SBP < : 90 HOLD for HR < : 60
--- NOTE | 2022-03-17 10:47 | ECG_ITS ---
Test Reason : CHF Blood Pressure : / mmHG Vent. Rate : 100 BPM Atrial Rate : 000 BPM P-R Int : 000 ms QRS Dur : 152 ms QT Int : 344 ms P-R-T Axes : 000 266 015 degrees QTc Int : 443 ms Atrial fibrillation Right bundle branch block Abnormal ECG When compared with ECG of 05-OCT-2021 12:00, No significant changes seen Referred By: Denisse Quinn Electronically Signed By:ALFIE SYKES MD
[2022-03-17] MEDS: methylPREDNISolone Sod Succ 125 MG/2 ML VIAL IVPUSH (10:59)
[2022-03-17] MEDS: cefTRIAXone sodium 1 GM in 0.9 % Sodium Chloride 50 ML IV (10:59)
[2022-03-17] MEDS: Furosemide 40 MG/4 ML VIAL IVPUSH ×2 (10:59→17:21)
[2022-03-17] MEDS: Albuterol Sulfate (0.083%) 2.5 MG/3 ML VIAL.NEB INHALE (11:12)
[2022-03-17] MEDS: Albuterol/Iprat 2.5/0.5MG 3 ML AMPUL.NEB INHALE ×3 (11:12→20:35)
[2022-03-17 11:22] LABS: MANUAL DIFF FLAG NO
[2022-03-17] MEDS: Azithromycin 500 MG in 0.9 % Sodium Chloride 250 ML 125 MG IV (11:23)
[2022-03-17 11:25] LABS: Basophils Percent Auto 0.7 % (0-2); Eosinophils Absolute Auto 0.1 X10*3/uL (0.0-0.4); Eosinophils Percent Auto 2.4 % (0-4); Hemoglobin 12.7 g/dl (14.0-18.0); Lymphocytes Absolute Auto 0.6 X10*3/uL (1.2-4.9); Lymphocytes Percent Auto 14.9 % (20-40); Mean Corpuscular HGB Conc 31.8 g/dl (31.0-36.0); Mean Corpuscular Hemoglobin 33.9 pg (27.0-33.0); Mean Corpuscular Volume 106.7 fL (80.0-98.0); Mean Platelet Volume 11.4 fL (9.4-12.4); Monocytes Absolute Auto 0.4 X10*3/uL (0.1-1.2); Monocytes Percent Auto 10.4 % (2-11); Neutrophils Percent Auto 71.6 % (45-73); Platelet Count 155 X10*3/uL (160-400); Red Blood Count 3.75 X10*6/uL (4.60-5.80); Red Cell Distribution Width 15.8 % (11.0-16.0); White Blood Count 4.2 X10*3/uL (4.8-10.8)
[2022-03-17 11:33] LABS: INTERNATIONAL NORM RATIO 4.9 (0.9-1.1); Prothrombin Time 60.1 SEC (10.0-13.1)
[2022-03-17 11:36] LABS: Partial Thromboplastin Time 47.1 SEC (26.0-36.4)
[2022-03-17 11:43] LABS: Alanine Aminotransferase 22 U/L (0-40); Albumin Level 3.4 g/dL (3.5-5.0); Alkaline Phosphatase 80 U/L (39-117); Anion Gap 12 (12-20); Aspartate Amino Transferase 28 U/L (5-37); Bilirubin Direct 0.4 mg/dL (0.0-0.5); Bilirubin Total 0.7 mg/dL (0.0-1.0); Blood Urea Nitrogen 34 mg/dL (9-16); Calcium 8.8 mg/dL (8.4-10.2); Carbon Dioxide 36 mmol/L (22-29); Chloride 104 mmol/L (96-108); Creatinine Clr Calc Pharmacy 56.7; Estimated Glomerular Filt Rate > 60; Glucose Random 113 mg/dL (60-115); Lipase 19 U/L (8-78); Potassium 4.4 mmol/L (3.3-5.1); Sodium 148 mmol/L (135-145); Total Protein 5.9 g/dL (6.5-8.0)
[2022-03-17 11:44] LABS: COVID-19 Test Negative (Negative)
[2022-03-17 11:45] LABS: Appearance Urine Clear; Color Urine Yellow; Glucose Urine UA Negative (Negative); Leukocyte Esterase Urine Negative (Negative); Nitrite Urine Negative (Negative); PH 5.5 (5.0-9.0); UMIC TRIGGER UACC YES; Urine Blood Trace (Negative); Urine Ketones Negative (Negative); Urine Protein 30 (1+) mg/dL (Neg-Trace)
[2022-03-17 11:48] LABS: Bacteria Urine None Seen (None Seen); Hyaline Casts Urine 0-2 /LPF (0-2); RBC Urine 0-2 /HPF (0-2); Squamous Epithelial Cell Urine 0-2 /HPF (0-2); WBC Urine 0-5 /HPF (0-5)
[2022-03-17 11:49] LABS: B Type Natriuretic Peptide 1021 pg/mL (<100)
--- NOTE | 2022-03-17 14:10 | P.HPHOSP_ITS ---
History of Present Illness Date of Service: 03/17/22 Attending physician on admission: Ted Ha Chief Complaint: sob, cough 82 year old male with history of HF with recovered EF, coronary artery disease s/p cardiac cath 02/2016, PAD s/p bilateral iliac angioplasty, recurrent non-small cell lung cancer of the right lung s/p wedge resection, chronic atrial fibrillation anticoagulated with Coumadin, hyperlipidemia, hypertension, COPD, ongoing smoker among others presented to the ED via EMS from home where he lives alone complaining of shortness of breath and productive cough ongoing for 3-4 days. Reports symptoms are worsened by exertion and are worse when lying down at night. Denies fevers, chills, sore throat, runny nose, nasal congestion, nausea, vomiting, abdominal pain, myalgia, headache, diarrhea, recent sick contacts, or chest pain. Per EMS, patient was hypoxic at home at 84% and placed on CPAP for transfer where he was then placed on OxyMask maintaining oxygen sa turation of 100% though he still feels short of breath. Patient tachypneic to 40, afebrile, heart rate 100. COVID-19 negative. No leukocytosis. Stable macrocytic anemia with H/H 12.7/40.0%, MCV 106.7. Platelets 155. INR 4.9, PTT 60.1. Creatinine 1.10, BUN 34, CO2 36. BNP 1021 (baseline around 490), initiale Trop-I 44, repeat pending. EKG shows AFib, rate 100, no ST/twave abnormaltiy. CXR showing improvement in left pleural effusion with question of increase in soft tissue density in region of previous surgery compared to prior CXR. Emphysematous changes present. Last echo in 06/2021 showing normal systolic function with EF 55-60%. Patient to be admitted for acute COPD exacerbation wit h acute CHF exacerbation. Review of Systems Review of Systems: General: +fatigue, +generalized weakness. No fevers, malaise, unintentional weight loss HEENT: No blurred vision, diplopia. No sore throat, nasal congestion, rhinorrhea, sinus pain, ear pain Cardiovascular: No chest pain, palpitations, or leg edema Respiratory: +PND, +orthopnea, +pemberton, +productive cough No shortness of breath, wheezing, cough GI: No abdominal pain, nausea, vomiting, diarrhea, constipation, melena, hematochezia : No dysuria, hematuria, increased urinary frequency, decreased urinary output MSK: No myalgia, back pain Neuro: No headaches, focal weakness, paresthesias Skin: No rashes or lesions [facility] Medical History Anemia Back pain Benign essential hypertension Bilateral lower extremity edema CAD (coronary artery disease) Cancer of upper lobe of right lung (~2013) Chronic atrial fibrillation Congestive heart failure COPD (chronic obstructive pulmonary disease) Gout Heart failure with reduced ejection fraction HLD (hyperlipidemia) Lumbar degenerative disc disease Neuropathy Osteoarthritis Osteoarthritis of knees, bilateral PAD (peripheral artery disease) Physical deconditioning Recurrent non-small cell lung cancer Smoker Type 2 diabetes mellitus with other diabetic kidney complication Vitamin D deficiency Wears dentures Family History Mother Heart disease Father Heart disease Surgical History History of angioplasty (~12/2020) History of back surgery History of brain surgery (~2003) History of bronchoscopy (~2020) History of cardiac cath (~02/2016) History of colonoscopy (~01/2001) History of lung biopsy History of lung surgery (~07/2013) History of lung surgery (~2019) History of partial colectomy (~01/2001) History of right knee surgery (~09/2005) History of thoracentesis (~09/2019) Social History Household Members: None Housing: Condominium Are you a primary hemodialysis patient care specialist to a significant other at home: No Do you presently have visiting nurse or other home services: No Alcohol intake: former Patient Tobacco Use Status: Current everyday Tobacco user Tobacco use type: Cigarette Cigarette Packs Per Day: 0.5 Cigarettes Per Day: 10 Years Smoked: 50 Smoked in Last 30 Days: Yes Patient Interested in Nicotine Replacement: No Patient Given Instructions on How to Stop Smoking: No Second Hand Smoke Exposure: No Use of substances other than those prescribed or required for medical reasons: No Currently Displaying Signs/Symptoms of Drug Intoxication Withdrawal: No Have you been hit, kicked, punched, or otherwise hurt by someone within the past year? If so, by whom?: No Do you feel safe in your current relationship?: No Is there a partner from a previous relationship who is making you feel unsafe now?: No Are you made to feel afraid or neglected: No Advance Directives: Yes Advance Directives on File: Yes Advance Directives Date on File: 10/05/21 Do you have thoughts of harming others: None Do you have a plan to hurt others: No Plan Recently lost weight without trying: No Eating poorly because of decreased appetite: No Nutrition Risks: No Nutritional Risk Poor oral hygiene: No service: No Current occupational status: retired Cognitive needs: Yes (cane) Hearing needs: No Vision needs: Yes Meds Allergies Allergy/AdvReac Type Severity Reaction Status Date / Time No Known Allergies Allergy Unknown UNKNOWN Verified 03/12/22 15:55 [NO KNOWN ALLERGIES] Active Medications: Current Medications Acetaminophen (Acetaminophen 325 Mg Tablet) 650 mg PO Q6H PRN PRN Reason: Pain, Mild (Pain Scale 1-3) Albuterol/Ipratropium (Albuterol/Iprat 2.5/0.5mg 3 Ml Ampul.Neb) 3 ml INHALE RQ4H WHILE AWAKE [facility] Furosemide (Furosemide 40 Mg/4 Ml Vial) 40 mg IVPUSH BID@0900,1800 [facility]; Protocol Ondansetron HCl (Ondansetron Hcl 4 Mg/2 Ml Vial) 4 mg IVPUSH Q8H PRN PRN Reason: Nausea and Vomiting Pharmacy Consult (Consult Rx Perform Med Rec) 1 each MISCELLANE ONCE PRN PRN Reason: Consult order Senna (Sennosides 8.6 Mg Tablet) 17.2 mg PO BEDTIME PRN PRN Reason: Constipation Sodium Chloride (0.9 % Sodium Chloride Flush 3 Ml Syringe) 3 ml IVFLUSH QSHIFT [facility] Home Medications Medication Instructions Recorded Confirmed Last Taken Type calcium carbonate 600 mg-vitamin 1 tab PO DAILY 07/10/20 03/17/22 03/16/22 History D3 5 mcg (200 unit) tablet multivitamin 1 tab PO DAILY 07/10/20 03/17/22 03/16/22 History nicotine 14 mg/24 hr daily 1 patch transdermal DAILY@1500 07/10/20 03/17/22 03/16/22 History transdermal patch warfarin 1 mg tablet 1 mg PO SUTUWETHFR@1800 07/20/21 03/12/22 03/16/22 History aspirin 81 mg tablet,delayed 81 mg PO DAILY@1500 09/22/21 03/17/22 03/16/22 History release (Adult Low Dose Aspirin) valsartan 40 mg tablet 40 mg PO DAILY 09/22/21 03/17/22 03/16/22 History warfarin 1 mg tablet (Jantoven) 2 mg PO MOSA@1800 10/05/21 03/12/22 03/16/22 History atorvastatin 40 mg tablet 40 mg PO BEDTIME 03/11/22 03/17/22 03/16/22 History febuxostat 40 mg tablet 40 mg PO Q2D for gout pain 03/11/22 03/17/22 03/16/22 History digoxin 125 mcg (0.125 mg) tablet 125 mcg PO SUMOWEFRSA@0900 03/17/22 03/17/22 03/16/22 History ferrous sulfate 325 mg (65 mg 325 mg PO DAILY@1500 03/17/22 03/17/22 03/16/22 History iron) tablet furosemide 40 mg tablet 40 mg PO BID@0900,1700 03/17/22 03/17/22 03/16/22 History vit C 250 mg-vit E 90 mg-zinc 40 1 tab PO DAILY 03/17/22 03/17/22 03/16/22 History mg-copper 1 [id number] capsule (PreserVision AREDS-2) warfarin 1 mg tablet 1 mg PO MOWEFR@1800 03/17/22 03/17/22 03/16/22 History warfarin 1 mg tablet 2 mg PO SUTUTHSA@1800 03/17/22 03/17/22 03/16/22 History Physical Exam Vital Signs and Narrative: Vital Signs: Last Vital Signs Temp 97.7 F 03/17/22 10:23 Pulse 92 03/17/22 11:13 Resp 36 H 03/17/22 11:13 BP 145/77 H 03/17/22 10:23 Pulse Ox 98 03/17/22 10:23 O2 Del Method 03/17/22 10:23 BMI result Body Mass Index 22.9 Constitutional - Awake and Alert, Mild respiratory distress Eyes - PERRLA, EOMI Cardiovascular - S1S2, RRR, 3+ edema BLE Respiratory - Scattered rhonchi bilaterally, diminished bibasil lung sounds. Normal lung expansion, MIld respiratory distress with tachypnea and increased work of breathin with oximetry 94% on RA. Gastrointestinal - NT / ND; +BS; No rebound or guarding Extremities - no calf tenderness bilaterally, no swelling Skin - Warm/Dry Neurological - Alert & oriented x3, CN II-XII in tact, 5/5 strength BUE and BLE Psychological - Appropriate affect Results Labs CBC and Chem 7: 03/17/22 11:03/18/22 07:13 Labs: Laboratory Results - last 24 hr 03/17/22 03/17/22 03/17/22 11:09 11:09 11:09 MCV 106.7 H MCH 33.9 H MCHC 31.8 RDW 15.8 Plt Count 155 L MPV 11.4 Immature Gran % (Auto) 0.0 Neut % (Auto) 71.6 Lymph % (Auto) 14.9 L [place] % (Auto) 10.4 Eos % (Auto) 2.4 Baso % (Auto) 0.7 Lymph # (Auto) 0.6 L [place] # (Auto) 0.4 Eos # (Auto) 0.1 Baso # (Auto) 0.0 Abs Immat Gran (auto) 0.00 Absolute Neuts (auto) 3.0 Absolute Nucleated RBC 0.000 Nucleated RBC % (auto) 0.0 PT INR APTT Anion Gap 12 Estim Creat Clear Calc 56.7 Estimated GFR > 60 Random Glucose 113 Lactic Acid Calcium 8.8 Total Bilirubin 0.7 Direct Bilirubin 0.4 AST 28 ALT 22 Alkaline Phosphatase 80 Troponin I High Sens 44.0 H D B-Natriuretic Peptide Total Protein 5.9 L Albumin 3.4 L Lipase 19 Urine Color Urine Appearance Urine pH Ur Specific [place] Urine Protein Urine Glucose (UA) Urine Ketones Urine Blood Urine Nitrite Ur Leukocyte Esterase Urine RBC Urine WBC Ur Squamous Epith Cells Urine Bacteria Hyaline Casts COVID-19 ([facility]O) COVID-19 Clin Com 03/17/22 03/17/22 03/17/22 11:09 11:09 11:09 MCV MCH MCHC RDW Plt Count MPV Immature Gran % (Auto) Neut % (Auto) Lymph % (Auto) [place] % (Auto) Eos % (Auto) Baso % (Auto) Lymph # (Auto) [place] # (Auto) Eos # (Auto) Baso # (Auto) Abs Immat Gran (auto) Absolute Neuts (auto) Absolute Nucleated RBC Nucleated RBC % (auto) PT 60.1 H INR 4.9 H APTT 47.1 H Anion Gap Estim Creat Clear Calc Estimated GFR Random Glucose Lactic Acid 1.0 Calcium Total Bilirubin Direct Bilirubin AST ALT Alkaline Phosphatase Troponin I High Sens B-Natriuretic Peptide 1021 H Total Protein Albumin Lipase Urine Color Urine Appearance Urine pH Ur Specific [place] Urine Protein Urine Glucose (UA) Urine Ketones Urine Blood Urine Nitrite Ur Leukocyte Esterase Urine RBC Urine WBC Ur Squamous Epith Cells Urine Bacteria Hyaline Casts COVID-19 ([facility]) COVID-19 Clin Com 03/17/22 03/17/22 11:18 11:25 MCV MCH MCHC RDW Plt Count MPV Immature Gran % (Auto) Neut % (Auto) Lymph % (Auto) [place] % (Auto) Eos % (Auto) Baso % (Auto) Lymph # (Auto) [place] # (Auto) Eos # (Auto) Baso # (Auto) Abs Immat Gran (auto) Absolute Neuts (auto) Absolute Nucleated RBC Nucleated RBC % (auto) PT INR APTT Anion Gap Estim Creat Clear Calc Estimated GFR Random Glucose Lactic Acid Calcium Total Bilirubin Direct Bilirubin AST ALT Alkaline Phosphatase Troponin I High Sens B-Natriuretic Peptide Total Protein Albumin Lipase Urine Color Yellow Urine Appearance Clear Urine pH 5.5 Ur Specific [place] 1.010 Urine Protein 30 (1+) H Urine Glucose (UA) Negative Urine Ketones Negative Urine Blood Trace H Urine Nitrite Negative Ur Leukocyte Esterase Negative Urine RBC 0-2 Urine WBC 0-5 Ur Squamous Epith Cells 0-2 Urine Bacteria None Seen Hyaline Casts 0-2 COVID-19 ([facility]) Negative COVID-19 Clin Com See Note Imaging Radiologist's Impressions: Impressions Chest X-Ray 03/17/22 11:30 IMPRESSION: Improved left pleural effusion. Question increase in soft tissue density in region of previous surgery compared to study of October 07, 2021. Emphysematous change. Question patchy regions of disease overlying the right lung versus probable end of ribs. Assessment and Plan (1) Acute exacerbation of chronic obstructive pulmonary disease: Status: Acute (2) Acute exacerbation of CHF (congestive heart failure): Status: Acute Plan 82 year old male with history of HF with recovered EF, coronary artery disease s/p cardiac cath 02/2016, PAD s/p bilateral iliac angioplasty, recurrent non- small cell lung cancer of the right lung s/p wedge resection, chronic atrial fibrillation anticoagulated with Coumadin, hyperlipidemia, hypertension, COPD, ongoing smoker among others to be admitted for COPD and CHF exacerbation with acute hypoxemic respiratory failure. #Acute hypoxemic respiratory failure-secondary to COPD and CHF exacerbation -non oxygen dependent at home -patient in mild respiratory distress with tachypnea despite supplemental O2 -give morphine 2 mg q.3h p.r.n. for dyspnea-respiratory distress -continue supplemental O2 to maintain oximetry 90-92% -treat CHF and COPD as below -admit to telemetry # acute CHF exacerbation -BNP >1000 (baseline around 490), CXR showing improvement in left-sided pleural effusion -clinically with bibasilar rales on initial ED assessment with pitting edema BLE -update echocardiogram ordered -furosemide 40 mg IV b.i.d. -strict I&O -daily weights -cardiac diet -admit to telemetry -follow BMP and BNP #Left sided pleural effusion -Improved since last CXR -Likely secondary to CHF, but must consider malignancy given history -Continue diuresis as above and if no improvement consider thoracentesis # acute COPD exacerbation- mild tachycardia, likely secondary to increased work of breathing/dyspnea. -negative for COVID-19. Respiratory panel pending -Continue with supplemental O2 as above -CXR without evidence of focal consolidation -Continue azithromycin 500mg daily x3d -Duonebs q4h while awak -albuterol neb q2h prn -IV solumedrol 60mg bid -Patient tachypnea scondary to COPD exacerbation, tachycardia secondary to albuterol use and increased work of breathing. Will check rectal temp to r/o fever. No sepsis/severe sepsis suspected #elevated trop -Initial 44, repeat pending -EKG without JONATAN, denies cp -likely demand #Chronic atrial fibrillation -Hold coumadin, INR supratherapeutic at 4.9 -Follow INR. Resume Coumadin once therapeutic -continue metoprolol and digoxin #Chronic macrocytic Anemia -H/H above baseline -on iron and folic acid supplementation at home #Tobacco dependence -Smoking cessation advised -NRT #NSCLC -outpatient follow up #HLD -continue statin #CAD/PAD-no anginal chest pain -EKG any ST/T-wave abnormality -continue statin, ASA DVT prophylaxis-resume Coumadin once INR therapeutic. INR currently supratherapeutic at 4.9 Full code Patient requires inpatient stay of at least 2 midnights due to acute hypoxia secondary to CHF and COPD exacerbation requiring supplemental O2, IV steroids, IV diuresis, and close monitoring for further cardiopulmonary decompensation. Quality Stroke Does the patient have a stroke diagnosis?: No VTE Prior VTE?: No VTE Risk Level:: Medical - moderate - high VTE Device Contraindication: Treatment Not Indicated VTE Drug Contraindication: N/A - Med Ordered
[2022-03-17] MEDS: Nicotine 14 MG PATCH.TD24 TRANSDERMA (15:15)
[2022-03-17 15:36] LABS: Troponin-I High Sensitivity 16.2 ng/L (<3.5-35.0)
[2022-03-17] MEDS: 0.9 % Sodium Chloride Flush 3 ML SYRINGE IVFLUSH ×2 (17:23→23:26)
[2022-03-17] MEDS: methylPREDNISolone Sod Succ 125 MG/2 ML VIAL 60 MG IVPUSH (23:26)
--- NOTE | 2022-03-17 23:44 | PC.NURSE ---
Nurse to nurse report given to DEISY West patient to be transported to room 387 by technology director.
[2022-03-18] VITALS (14 sets, daily range): BP systolic 90–157; BP diastolic 58–95; PULSE 78–142; RESP 18–24; TEMP 36.1–37; O2SAT 92–98; BMI 21.4
[2022-03-18] MEDS: Albuterol/Iprat 2.5/0.5MG 3 ML AMPUL.NEB INHALE ×5 (03:29→20:41)
[2022-03-18] MEDS: Morphine Sulfate 2 MG/ML CARTRIDGE IVPUSH (03:43)
--- NOTE | 2022-03-18 03:56 | PC.NURSE ---
Around 3am pt c/o increasing and hard to expectorate cough, and wheezing, Anette Mack was made aware, prn Douneb ordered, RT came gave the treatment with some relief, prn Morphine for dyspnea given with good effect.
[2022-03-18 08:09] LABS: Prothrombin Time 79.3 SEC (10.0-13.1)
[2022-03-18 08:12] LABS: INTERNATIONAL NORM RATIO 6.4 (0.9-1.1)
[2022-03-18 08:18] LABS: B Type Natriuretic Peptide 938 pg/mL (<100)
[2022-03-18] MEDS: Nicotine 14 MG PATCH.TD24 TRANSDERMA (08:50)
[2022-03-18] MEDS: Doxycycline Monohydrate 100 MG CAPSULE PO ×2 (08:50→20:39)
[2022-03-18] MEDS: Multivitamin TABLET 1 TAB PO (08:50)
[2022-03-18] MEDS: Calcium + Vitamin D 250 MG TABLET PO (08:50)
[2022-03-18] MEDS: Potassium Chloride ER 20 MEQ TAB.ER.PRT PO (08:50)
[2022-03-18] MEDS: Folic Acid 1 MG TABLET PO (08:50)
[2022-03-18] MEDS: Metoprolol Succinate ER 50 MG TAB.ER.24H PO ×3 (08:50→20:21)
[2022-03-18] MEDS: 0.9 % Sodium Chloride Flush 3 ML SYRINGE IVFLUSH ×3 (08:51→20:20)
[2022-03-18 09:16] LABS: Anion Gap 13 (12-20); Blood Urea Nitrogen 36 mg/dL (9-16); Calcium 8.5 mg/dL (8.4-10.2); Carbon Dioxide 38 mmol/L (22-29); Chloride 103 mmol/L (96-108); Creatinine Clr Calc Pharmacy 57.6; Estimated Glomerular Filt Rate > 60; Glucose Random 125 mg/dL (60-115); Potassium 4.5 mmol/L (3.3-5.1); Sodium 149 mmol/L (135-145)
[2022-03-18] MEDS: Digoxin 0.125 MG TABLET PO (09:16)
[2022-03-18] MEDS: 0.9 % Sodium Chloride 1,000 ML 80 ML IV (09:29)
[2022-03-18] MEDS: methylPREDNISolone Sod Succ 125 MG/2 ML VIAL 60 MG IVPUSH ×2 (11:12→22:51)
--- NOTE | 2022-03-18 12:01 | PC.NURSE ---
Patient resting in chair, satellite project site monitor rapid afib 130s-140s, even after PO metoprolol given this AM, with exertion rate increases. Patients breathing is unlabored at rest. Patient does not feel palpations at rest but does with exertion. MICKIE Daigley aware.
--- NOTE | 2022-03-18 12:15 | PM.CNCAR ---
History of Present Illness History of Present Illness Date of Service: 03/18/22 Requesting physician: Rafaela Solo Consult reason: atrial fibrillation and congestive heart failure Chief complaint: CHF Exacerbation COPD Exacerbation Narrative: I was consulted to carmen in cardiology consultation today for respiratory failure with worsening shortness of breath and palpitations. Patient has significant multiple medical issues in recent past and I see him in the office for his heart failure and atrial fibrillation. He has had waxing and waning LV ejection fraction with cardiomyopathy in the setting of rapid atrial fibrillation. This has been difficult to control. Patient also has history of heart failure syndrome as well as advanced COPD and lung cancer issues currently with metastatic cancer undergoing radiation therapy to the brain for solitary lesion. He also has local advanced cancer. He also has significant PVD. Patient came to the hospital because he said he was having worsening shortness of breath wheezing as well as rapid heart rate. Recently his digoxin was reduced because of elevated digoxin assay and metoprolol was adjusted as well. Patient said he was having rapid heart rate and having difficulty breathing. He was noted to have COPD exacerbation is BNP was significantly elevated in the 1000 range. His usual dry BNP is in the upper 400 to low 500 range. He said he currently feels better. He was lightheadedness blood pressure is on the lower side. Review of Systems Constitutional: Constitutional: Reports fatigue and Reports weakness Eyes: Eyes: Reports no additional eye complaints Cardiovascular: Cardiovascular: Denies chest pain, Reports leg edema, Reports lightheadedness, Reports palpitations, Reports dyspnea and Reports dyspnea on exertion Respiratory: Respiratory: Reports cough, Reports dyspnea, Reports dyspnea on exertion and Reports wheezing Gastrointestinal: Gastrointestinal: Reports no additional gastrointestinal complaints Musculoskeletal: Musculoskeletal: Reports no additional musculoskeletal complaints Neurologic: Reports weakness Endocrine: Endocrine: Reports fatigue and Reports palpitations Allergic/Immunologic: Allergic/Immunologic: Reports wheezing FOR[facility] Past Medical History Medical History Anemia Back pain Benign essential hypertension Bilateral lower extremity edema CAD (coronary artery disease) Cancer of upper lobe of right lung (~2013) Chronic atrial fibrillation Congestive heart failure COPD (chronic obstructive pulmonary disease) Gout Heart failure with reduced ejection fraction HLD (hyperlipidemia) Lumbar degenerative disc disease Neuropathy Osteoarthritis Osteoarthritis of knees, bilateral PAD (peripheral artery disease) Physical deconditioning Recurrent non-small cell lung cancer Smoker Type 2 diabetes mellitus with other diabetic kidney complication Vitamin D deficiency Wears dentures Family History Family History Mother Heart disease Father Heart disease Surgical History Surgical History History of angioplasty (~12/2020) History of back surgery History of brain surgery (~2003) History of bronchoscopy (~2020) History of cardiac cath (~02/2016) History of colonoscopy (~01/2001) History of lung biopsy History of lung surgery (~07/2013) History of lung surgery (~2019) History of partial colectomy (~01/2001) History of right knee surgery (~09/2005) History of thoracentesis (~09/2019) Social History Social History Household Members: None Housing: [facility] Are you a primary critical care registered nurse to a significant other at home: No Do you presently have visiting nurse or other home services: No Alcohol intake: former Patient Tobacco Use Status: Current everyday Tobacco user Tobacco use type: Cigarette Cigarette Packs Per Day: 0.5 Cigarettes Per Day: 10 Years Smoked: 50 Smoked in Last 30 Days: Yes Patient Interested in Nicotine Replacement: No Patient Given Instructions on How to Stop Smoking: No Second Hand Smoke Exposure: No Use of substances other than those prescribed or required for medical reasons: No Currently Displaying Signs/Symptoms of Drug Intoxication Withdrawal: No Have you been hit, kicked, punched, or otherwise hurt by someone within the past year? If so, by whom?: No Do you feel safe in your current relationship?: No Is there a partner from a previous relationship who is making you feel unsafe now?: No Are you made to feel afraid or neglected: No Advance Directives: Yes Advance Directives on File: Yes Advance Directives Date on File: 10/05/21 Do you have thoughts of harming others: None Do you have a plan to hurt others: No Plan Recently lost weight without trying: No Eating poorly because of decreased appetite: No Nutrition Risks: No Nutritional Risk Poor oral hygiene: No service: No Current occupational status: retired Cognitive needs: Yes (cane) Hearing needs: No Vision needs: Yes Meds Allergies Allergy/AdvReac Type Severity Reaction Status Date / Time No Known Allergies Allergy Unknown UNKNOWN Verified 03/12/22 15:55 [NO KNOWN ALLERGIES] Active Medications: Current Medications Acetaminophen (Acetaminophen 325 Mg Tablet) 650 mg PO Q6H PRN PRN Reason: Pain, Mild (Pain Scale 1-3) Albuterol/Ipratropium (Albuterol/Iprat 2.5/0.5mg 3 Ml Ampul.Neb) 3 ml INHALE RQ4H WHILE AWAKE [facility] Last Admin: 03/18/22 11:24 Dose: 3 ml Albuterol/Ipratropium (Albuterol/Iprat 2.5/0.5mg 3 Ml Ampul.Neb) 3 ml INHALE RQ4H PRN PRN Reason: wheezing Aspirin (Aspirin Enteric Coated 81 Mg Tablet.) 81 mg PO DAILY@1500 [facility] Atorvastatin Calcium (Atorvastatin Calcium 40 Mg Tablet) 40 mg PO BEDTIME [facility] Calcium Carbonate/Cholecalciferol (Calcium + Vitamin D 250 Mg Tablet) 250 mg PO DAILY [facility] Last Admin: 03/18/22 08:50 Dose: 250 mg Digoxin (Digoxin 0.125 Mg Tablet) 0.125 mg PO SUMOWEFRSA@0900 [facility] Last Admin: 03/18/22 09:16 Dose: 0.125 mg Doxycycline Monohydrate (Doxycycline Monohydrate 100 Mg Capsule) 100 mg PO Q12H [facility] Stop: 03/23/22 21:01 Last Admin: 03/18/22 08:50 Dose: 100 mg Ferrous Sulfate (Ferrous Sulfate 324 Mg Tablet.) 324 mg PO DAILY@1500 [facility] Folic Acid (Folic Acid 1 Mg Tablet) 1 mg PO DAILY [facility] Last Admin: 03/18/22 08:50 Dose: 1 mg Furosemide (Furosemide 40 Mg/4 Ml Vial) 40 mg IVPUSH BID@0900,1800 [facility]; Protocol Last Admin: 03/18/22 08:59 Dose: Not Given Sodium Chloride (Ns) 1,000 mls @ 80 mls/hr IV .[id number] [facility] Stop: 03/18/22 21:29 Last Infusion: 03/18/22 11:18 Dose: 0 mls/hr Methylprednisolone Sodium Succinate (Methylprednisolone Sod Succ 125 Mg/2 Ml Vial) 60 mg IVPUSH Q12H [facility] Last Admin: 03/18/22 11:12 Dose: 60 mg Metoprolol Succinate (Metoprolol Succinate Er 50 Mg Tab.Er.24h) 50 mg PO TID [facility]; Protocol Last Admin: 03/18/22 08:50 Dose: 50 mg Morphine Sulfate (Morphine Sulfate 2 Mg/Ml Cartridge) 2 mg IVPUSH Q3H PRN; Protocol PRN Reason: Dyspnea Last Admin: 03/18/22 03:43 Dose: 2 mg Multivitamins/Vitamin C (Multivitamin Tablet) 1 tab PO DAILY [facility] Last Admin: 03/18/22 08:50 Dose: 1 tab Nicotine (Nicotine 14 Mg Patch.Td24) 14 mg TRANSDERMA DAILY [facility] Last Admin: 03/18/22 08:50 Dose: 14 mg Non-Formulary Medication (Febuxostat) 40 mg PO Q2D [facility] Ondansetron HCl (Ondansetron Hcl 4 Mg/2 Ml Vial) 4 mg IVPUSH Q8H PRN PRN Reason: Nausea and Vomiting Pharmacy Consult (Consult Rx Perform Med Rec) 1 each MISCELLANE ONCE PRN PRN Reason: Consult order Potassium Chloride (Potassium Chloride Er 20 Meq Tab.Er.Prt) 20 meq PO DAILY [facility] Last Admin: 03/18/22 08:50 Dose: 20 meq Senna (Sennosides 8.6 Mg Tablet) 17.2 mg PO BEDTIME PRN PRN Reason: Constipation Sodium Chloride (0.9 % Sodium Chloride Flush 3 Ml Syringe) 3 ml IVFLUSH QSHIFT [facility] Last Admin: 03/18/22 08:51 Dose: 3 ml Valsartan (Valsartan 40 Mg Tablet) 40 mg PO DAILY [facility]; Protocol Home Medications Medication Instructions Recorded Confirmed Last Taken Type calcium carbonate 600 mg-vitamin 1 tab PO DAILY 07/10/20 03/17/22 03/16/22 History D3 5 mcg (200 unit) tablet multivitamin 1 tab PO DAILY 07/10/20 03/17/22 03/16/22 History nicotine 14 mg/24 hr daily 1 patch transdermal DAILY@1500 07/10/20 03/17/22 03/16/22 History transdermal patch warfarin 1 mg tablet 1 mg PO SUTUWETHFR@1800 07/20/21 03/12/22 03/16/22 History aspirin 81 mg tablet,delayed 81 mg PO DAILY@1500 09/22/21 03/17/22 03/16/22 History release (Adult Low Dose Aspirin) valsartan 40 mg tablet 40 mg PO DAILY 09/22/21 03/17/2222 History warfarin 1 mg tablet (Jantoven) 2 mg PO MOSA@1800 10/05/21 03/12/22 03/16/22 History atorvastatin 40 mg tablet 40 mg PO BEDTIME 03/11/22 03/17/22 03/16/22 History febuxostat 40 mg tablet 40 mg PO Q2D for gout pain 03/11/22 03/17/22 03/16/22 History digoxin 125 mcg (0.125 mg) tablet 125 mcg PO SUMOWEFRSA@0900 03/17/22 03/17/22 03/16/22 History ferrous sulfate 325 mg (65 mg 325 mg PO DAILY@1500 03/17/22 03/17/22 03/16/22 History iron) tablet furosemide 40 mg tablet 40 mg PO BID@0900,1700 03/17/22 03/17/22 03/16/22 History vit C 250 mg-vit E 90 mg-zinc 40 1 tab PO DAILY 03/17/22 03/17/22 03/16/22 History mg-copper 1 [id number] capsule (PreserVision AREDS-2) warfarin 1 mg tablet 1 mg PO MOWEFR@1800 03/17/22 03/17/22 03/16/22 History warfarin 1 mg tablet 2 mg PO SUTUTHSA@1800 03/17/22 03/17/22 03/16/22 History Physical Exam Vital Signs: Vital Signs: Last Vital Signs Temp 97 F 03/18/22 10:55 Pulse 104 H 03/18/22 11:24 Resp 18 03/18/22 11:24 BP 132/65 03/18/22 10:55 Pulse Ox 92 03/18/22 10:55 O2 Del Method 03/18/22 10:55 O2 Flow Rate 2 03/18/22 07:17 BMI result Body Mass Index 21.4 Const: General: cooperative, comfortable, in distress mild and respiratory and ill appearing Nutritional Appearance: cachectic and underweight Orientation/consciousness: patient oriented x3 HEENT: Head: Yes normocephalic and Yes atraumatic Neck: Neck: Yes trachea midline, Yes supple and Yes no JVD Resp: Effort & Inspection: normal respiratory effort Auscultation: no crackles, no wheezes, breath sounds absent and diminished lung sounds Cardio: Jugular venous distension: no JVD Rate: tachycardic Rhythm: abnormal rhythm irregularly irregular Heart sounds: S1 normal heart sound present, S2 normal heart sound present, no click, no gallops and no murmurs GI: Auscultation: normal bowel sounds Skin: General skin exam: no rashes or lesions noted Neuro: General: patient oriented x3 Extrem: General: No clubbing, No cyanosis and Yes edema Objective Labs and Meds Result diagrams: 03/17/22 11:09 03/18/22 07:13 Lab results: Laboratory Results - last 24 hr 03/17/22 03/18/22 03/18/22 14:43 00:47 07:13 PT 79.3 H INR 6.4 H* Sodium Potassium Chloride Carbon Dioxide Anion Gap BUN Creatinine Estim Creat Clear Calc Estimated GFR Random Glucose Calcium Troponin I High Sens 16.2 B-Natriuretic Peptide Respiratory Panel [place] Cancelled Adenovirus (Rapid PCR) Cancelled B.pert (TEM-PCR) Cancelled B.parapertussis DNA PCR Cancelled C. pneumoniae DNA (PCR) Cancelled Coronavirus OC43 (PCR) Cancelled Coronavirus HKU1 (PCR) Cancelled Coronavirus 229E (PCR) Cancelled Coronavirus NL63 (PCR) Cancelled Human Metapneumovir PCR Cancelled Influenza A (RT-PCR) Cancelled Influenza B (RT-PCR) Cancelled M. pneumoniae (PCR) Cancelled Parainfluenza 1 (PCR) Cancelled Parainfluenza 2 (PCR) Cancelled Parainfluenza 3 (PCR) Cancelled Parainfluenza 4 (PCR) Cancelled RSV (PCR) Cancelled Entero/Rhino (PCR) Cancelled SARS-CoV-2 RNA (RT-PCR) Cancelled 03/18/22 03/18/22 07:13 07:13 PT INR Sodium 149 H Potassium 4.5 Chloride 103 Carbon Dioxide 38 H Anion Gap 13 BUN 36 H Creatinine 1.01 Estim Creat Clear Calc 57.6 Estimated GFR > 60 Random Glucose 125 H Calcium 8.5 Troponin I High Sens B-Natriuretic Peptide 938 H Respiratory Panel [place] Adenovirus (Rapid PCR) B.pert (TEM-PCR) B.parapertussis DNA PCR C. pneumoniae DNA (PCR) Coronavirus OC43 (PCR) Coronavirus HKU1 (PCR) Coronavirus 229E (PCR) Coronavirus NL63 (PCR) Human Metapneumovir PCR Influenza A (RT-PCR) Influenza B (RT-PCR) M. pneumoniae (PCR) Parainfluenza 1 (PCR) Parainfluenza 2 (PCR) Parainfluenza 3 (PCR) Parainfluenza 4 (PCR) RSV (PCR) Entero/Rhino (PCR) SARS-CoV-2 RNA (RT-PCR) Imaging Radiologist's impression: Impressions Chest X-Ray 03/17/22 11:30 IMPRESSION: Improved left pleural effusion. Question increase in soft tissue density in region of previous surgery compared to study of October 07, 2021. Emphysematous change. Question patchy regions of disease overlying the right lung versus probable end of ribs. Assessment and Plan (1) Acute respiratory failure with hypoxia: Status: Acute Acute respiratory failure with hypoxemia in this elderly gentleman which could be multifactorial related to his underlying COPD in exacerbation as well as may be component of heart failure although does not appear to be in profound heart failure at this point time. He also could have bilateral pleural effusion advancing malignancy and may be mucus plugging. May be advanced chest CT imaging with noncontrast imaging and pulmonary consultation should be considered. I would hold off on giving him fluids as his BNP is much higher than his baseline BNP. His BNP elevation could be related hypoxic respiratory failure and RV strain. Although overall prognosis is guarded. The could be progressive pulmonary malignancy. Hold off on IV diuresis at this point time. Overall prognosis is guarded. Continue supportive care oxygen supplementation. (2) Atrial fibrillation with rapid ventricular response: Status: Acute Atrial fibrillation rapid ventricular response which has been difficult control in the past. Currently on dual therapy with metoprolol as well as digoxin. His blood pressure is currently on the softer side. Will give him couple of doses IV digoxin 0.25 mg q.6 hours x2 doses. Continue p.o. metoprolol. Would hold off on loading him with fluids too much. Overall prognosis is guarded. Also continue to treat his underlying hypoxemia. Also may be antianxiety medications will help him as well. Will continue to follow with him. Procedures Date of Service Date of Service: 03/18/22
[2022-03-18 12:52] LABS: Adenovirus PCR Not Detected (Not Detect.); Bordetella parapertussis PCR Not Detected (Not Detect.); Bordetella pertussis PCR Not Detected (Not Detect.); Chlamydia pneumoniae PCR Not Detected (Not Detect.); Coronavirus 229E PCR Not Detected (Not Detect.); Coronavirus HKU1 PCR Not Detected (Not Detect.); Coronavirus NL63 PCR Not Detected (Not Detect.); Coronavirus OC43 PCR Not Detected (Not Detect.); Human metapneumovirus PCR Not Detected (Not Detect.); Influenza A PCR Not Detected (Not Detect.); Influenza B PCR Not Detected (Not Detect.); SARS-CoV-2 PCR Not Detected (Not Detect.)
[2022-03-18 12:53] LABS: Mycoplasma pneumoniae PCR Not Detected (Not Detect.); Parainfluenza 1 PCR Not Detected (Not Detect.); Parainfluenza 2 PCR Not Detected (Not Detect.); Parainfluenza 3 PCR Not Detected (Not Detect.); Parainfluenza 4 PCR Not Detected (Not Detect.); RSV PCR Not Detected (Not Detect.); Rhino/Enterovirus PCR Not Detected (Not Detect.)
[2022-03-18] MEDS: Digoxin 0.5 MG/2 ML AMPUL 0.125 MG IVPUSH ×2 (13:40→20:18)
--- NOTE | 2022-03-18 15:19 | MHC.CLN ---
NUTRITION CONSULT FOR STAGE II WOUND TO BUTTOCKS. CARDIAC DIET. REPORTS THAT EATING WELL AND STABLE WEIGHT HX. LIKES ENSURE PUDDING. ADDING BID TO PROVIDE ADDITIONAL 340 KCAL, 8 G PROTEIN. DOES NOT WANT TO GAIN WEIGHT. FOLLOW FOR INTAKE AND SKIN INTEGRITY.
--- NOTE | 2022-03-18 16:02 | P.PNIM_ITS ---
Subjective Subjective Date of Service: 03/18/22 Interval History: Seen in follow-up for COPD exacerbation CHF exacerbation Interval history. Patient resting comfortably eating breakfast. He states that his shortness of breath has improved but still feels unwell. Feels very fatigued. He has gone into AFib with RVR with rate in the 140s but denies any symptoms palpitations, shortness of breath, lightheadedness, palpitations. Review of Systems General: +fatigue. No fevers, malaise, unintentional weight loss HEENT: No blurred vision, diplopia. No sore throat, nasal congestion, rhinorrhea, sinus pain, ear pain Cardiovascular: No chest pain, palpitations, or leg edema Respiratory: No shortness of breath, wheezing, cough GI: No abdominal pain, nausea, vomiting, diarrhea, constipation, melena, hematochezia : No dysuria, hematuria, increased urinary frequency, decreased urinary output MSK: No myalgia, back pain Neuro: No headaches, weakness, paresthesias Skin: No rashes or lesions Physical Exam Vital Signs: Vital Signs: Last Vital Signs Temp 97 F 03/18/22 10:55 Pulse 109 H 03/18/22 15:14 Resp 18 03/18/22 15:14 BP 110/58 L 03/18/22 13:34 Pulse Ox 92 03/18/22 10:55 O2 Del Method 03/18/22 10:55 O2 Flow Rate 2 03/18/22 07:17 BMI result Body Mass Index 21.4 Constitutional - Awake and Alert, No apparent distress Eyes - PERRLA, EOMI Cardiovascular - S1S2, RRR, No edema Respiratory - Normal lung expansion, Normal respiratory effort, No respiratory distress, CTA bilaterally Gastrointestinal - NT / ND; +BS; No rebound or guarding Extremities - no calf tenderness bilaterally, no swelling Skin - Warm/Dry Neurological - Alert & oriented x3 Psychological - Appropriate affect Objective Data Active Medications Acetaminophen (Acetaminophen 325 Mg Tablet) 650 mg PO Q6H PRN PRN Reason: Pain, Mild (Pain Scale 1-3) Albuterol/Ipratropium (Albuterol/Iprat 2.5/0.5mg 3 Ml Ampul.Neb) 3 ml INHALE RQ4H WHILE AWAKE RADHA Last Admin: 03/18/22 15:13 Dose: 3 ml Documented By: HO.RONCARR Albuterol/Ipratropium (Albuterol/Iprat 2.5/0.5mg 3 Ml Ampul.Quinton) 3 ml INHALE RQ4H PRN PRN Reason: wheezing Aspirin (Aspirin Enteric Coated 81 Mg Tablet.) 81 mg PO DAILY@1500 RADHA Atorvastatin Calcium (Atorvastatin Calcium 40 Mg Tablet) 40 mg PO BEDTIME [facility] Calcium Carbonate/Cholecalciferol (Calcium + Vitamin D 250 Mg Tablet) 250 mg PO DAILY [facility] Last Admin: 03/18/22 08:50 Dose: 250 mg Documented By: ESPERANZA Digoxin (Digoxin 0.125 Mg Tablet) 0.125 mg PO SUMOWEFRSA@0900 [facility] Last Admin: 03/18/22 09:16 Dose: 0.125 mg Documented By: ESPERANZA Digoxin (Digoxin 0.5 Mg/2 Ml Ampul) 0.125 mg IVPUSH Q6H [facility] Stop: 03/18/22 19:01 Last Admin: 03/18/22 13:40 Dose: 0.125 mg Documented By: ESPERANZA Doxycycline Monohydrate (Doxycycline Monohydrate 100 Mg Capsule) 100 mg PO Q12H [facility] Stop: 03/23/22 21:01 Last Admin: 03/18/22 08:50 Dose: 100 mg Documented By: ESPERANZA Ferrous Sulfate (Ferrous Sulfate 324 Mg Tablet.) 324 mg PO DAILY@1500 RADHA Folic Acid (Folic Acid 1 Mg Tablet) 1 mg PO DAILY [facility] Last Admin: 03/18/22 08:50 Dose: 1 mg Documented By: ESPERANZA Furosemide (Furosemide 40 Mg/4 Ml Vial) 40 mg IVPUSH BID@0900,1800 RADHA; Protoc ol Last Admin: 03/18/22 08:59 Dose: Not Given Documented By: ESPERANZA Non-Admin Reason: Physician Held Med Sodium Chloride (Ns) 1,000 mls @ 80 mls/hr IV .[id number] [facility] Stop: 03/18/22 21:29 Last Infusion: 03/18/22 12:29 Dose: 80 mls/hr Documented By: ESPERANZA Lorazepam (Lorazepam 0.5 Mg Tablet) 0.25 mg PO Q6H PRN PRN Reason: Anxiety Methylprednisolone Sodium Succinate (Methylprednisolone Sod Succ 125 Mg/2 Ml Vial) 60 mg IVPUSH Q12H [facility] Last Admin: 03/18/22 11:12 Dose: 60 mg Documented By: ESPERANZA Metoprolol Succinate (Metoprolol Succinate Er 50 Mg Tab.Er.24h) 50 mg PO TID [facility]; Protocol Last Admin: 03/18/22 08:50 Dose: 50 mg Documented By: ESPERANZA Morphine Sulfate (Morphine Sulfate 2 Mg/Ml Cartridge) 2 mg IVPUSH Q3H PRN; Protocol PRN Reason: Dyspnea Last Admin: 03/18/22 03:43 Dose: 2 mg Documented By: THU Multivitamins/Vitamin C (Multivitamin Tablet) 1 tab PO DAILY [facility] Last Admin: 03/18/22 08:50 Dose: 1 tab Documented By: ESPERANZA Nicotine (Nicotine 14 Mg Patch.Td24) 14 mg TRANSDERMA DAILY [facility] Last Admin: 03/18/22 08:50 Dose: 14 mg Documented By: ESPERANZA Non-Formulary Medication (Febuxostat) 40 mg PO Q2D [facility] Ondansetron HCl (Ondansetron Hcl 4 Mg/2 Ml Vial) 4 mg IVPUSH Q8H PRN PRN Reason: Nausea and Vomiting Pharmacy Consult (Consult Rx Perform Med Rec) 1 each MISCELLANE ONCE PRN PRN Reason: Consult order Potassium Chloride (Potassium Chloride Er 20 Meq Tab.Er.Prt) 20 meq PO DAILY [facility] Last Admin: 03/18/22 08:50 Dose: 20 meq Documented By: ESPERANZA Senna (Sennosides 8.6 Mg Tablet) 17.2 mg PO BEDTIME PRN PRN Reason: Constipation Sodium Chloride (0.9 % Sodium Chloride Flush 3 Ml Syringe) 3 ml IVFLUSH QSHIFT [facility] Last Admin: 03/18/22 08:51 Dose: 3 ml Documented By: ESPERANZA Valsartan (Valsartan 40 Mg Tablet) 40 mg PO DAILY [facility]; Protocol Labs CBC & Chem 7: 03/17/22 11:09 03/18/22 07:13 Labs: Laboratory Results - last 24 hr 03/18/22 03/18/22 03/18/22 00:47 07:13 07:13 PT 79.3 H INR 6.4 H* Anion Gap 13 Estim Creat Clear Calc 57.6 Estimated GFR > 60 Random Glucose 125 H Calcium 8.5 B-Natriuretic Peptide Respiratory Panel Pratt Cancelled Adenovirus (Rapid PCR) Cancelled B.pert (TEM-PCR) Cancelled B.parapertussis DNA PCR Cancelled C. pneumoniae DNA (PCR) Cancelled Coronavirus OC43 (PCR) Cancelled Coronavirus HKU1 (PCR) Cancelled Coronavirus 229E (PCR) Cancelled Coronavirus NL63 (PCR) Cancelled Human Metapneumovir PCR Cancelled Influenza A (RT-PCR) Cancelled Influenza B (RT-PCR) Cancelled M. pneumoniae (PCR) Cancelled Parainfluenza 1 (PCR) Cancelled Parainfluenza 2 (PCR) Cancelled Parainfluenza 3 (PCR) Cancelled Parainfluenza 4 (PCR) Cancelled RSV (PCR) Cancelled Entero/Rhino (PCR) Cancelled SARS-CoV-2 RNA (RT-PCR) Cancelled 03/18/22 03/18/22 07:13 09:56 PT INR Anion Gap Estim Creat Clear Calc Estimated GFR Random Glucose Calcium B-Natriuretic Peptide 938 H Respiratory Panel Pratt See Note Adenovirus (Rapid PCR) Not Detected B.pert (TEM-PCR) Not Detected B.parapertussis DNA PCR Not Detected C. pneumoniae DNA (PCR) Not Detected Coronavirus OC43 (PCR) Not Detected Coronavirus HKU1 (PCR) Not Detected Coronavirus 229E (PCR) Not Detected Coronavirus NL63 (PCR) Not Detected Human Metapneumovir PCR Not Detected Influenza A (RT-PCR) Not Detected Influenza B (RT-PCR) Not Detected M. pneumoniae (PCR) Not Detected Parainfluenza 1 (PCR) Not Detected Parainfluenza 2 (PCR) Not Detected Parainfluenza 3 (PCR) Not Detected Parainfluenza 4 (PCR) Not Detected RSV (PCR) Not Detected Entero/Rhino (PCR) Not Detected SARS-CoV-2 RNA (RT-PCR) Not Detected Microbiology Microbiology Results: Microbiology 03/17/22 11:18 Blood Culture - Preliminary Blood - Venous No growth after 24 hours. 03/17/22 11:09 Blood Culture - Preliminary Blood - Venous No growth after 24 hours. 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 #Acute hypoxemic respiratory failure-secondary to COPD and CHF exacerbation -non oxygen dependent at home -Subjectively improvng but still requiring 2L supplemental O2 via NC -Continue supplemental O2 to maintain oximetry 90-92%. Continue morphine prn for increased WOB -Evaluated by cardiology- not felt to be in profound heart failure currently. Recommending further pulmonary evaluation -treat CHF and COPD as below -admit to telemetry #AFib with RVR -HR 140s this am -BP soft. Hold fluids per cardiology -Continue metoprolol and PO dig. Add dig .125mg q6h x 2 -INR remains supratherapeutic. Follow INR -Resume warafarin once INR therapeutic. #HF recovered EF/Cardiomyopathy -Evaluated by cards. Not felt to be in profound HF. Elevated BNP thought to be secondary to hypoxic respiratory failure or RV strain. -Hold on IV diuretic. Continue home PO diuretics -BNP trending down. Continue to follow BNP -strict I&O -daily weights -cardiac diet -admit to telemetry -follow BMP and BNP #Left sided pleural effusion -Improved since last CXR -Not felt to be in profound CHF -Cards recommending pulm eval for further evaluation of pleural effusion and hypoxia- ?mucus plugging, ?malignancy -Continue diuresis as above and if no improvement consider thoracentesis. Appreciate pulm input # acute COPD exacerbation- mild tachycardia, likely secondary to increased work of breathing/dyspnea. -Respiratory panel neg -Continue with supplemental O2 as above -CXR without evidence of focal consolidation -Continue azithromycin 500mg daily. D2 -Duonebs q4h while awake -albuterol neb q2h prn -IV solumedrol 60mg bid -Patient tachypnea scondary to COPD exacerbation, tachycardia secondary to albuterol use and increased work of breathing. Will check rectal temp to r/o fever. No sepsis/severe sepsis suspected #elevated trop -Initial 44, repeat 16.2 -EKG without JONATAN, denies cp -likely demand #Chronic macrocytic Anemia -H/H above baseline -on iron and folic acid supplementation at home #Tobacco dependence -Smoking cessation advised -NRT #NSCLC -outpatient follow up #HLD -continue statin #CAD/PAD-no anginal chest pain -EKG any ST/T-wave abnormality -continue statin, ASA DVT prophylaxis-resume Coumadin once INR therapeutic.? INR currently bauer pratherapeutic at 6.4 Full code Patient requires ongoing inpatient stay due to acute hypoxic respiratory failure requiring supplemental O2 and further investigation into pleural effusion with question of malignancy given history now in AFib with RVR requiring IV antiarrhythmic drugs Quality Stroke Does the patient have a stroke diagnosis?: No VTE Prior VTE?: No VTE Risk Level:: Medical - moderate - high VTE Device Contraindication: Treatment Not Indicated VTE Drug Contraindication: N/A - Med Ordered
[2022-03-18] MEDS: Aspirin Enteric Coated 81 MG TABLET.DR PO (16:18)
[2022-03-18] MEDS: Ferrous Sulfate 324 MG TABLET.DR PO (16:19)
[2022-03-18] MEDS: Furosemide 40 MG TABLET PO (17:15)
[2022-03-18] MEDS: Atorvastatin Calcium 40 MG TABLET PO (20:39)
[2022-03-19] VITALS (12 sets, daily range): BP systolic 107–158; BP diastolic 58–93; PULSE 69–108; RESP 14–20; TEMP 35.6–37; O2SAT 93–97
--- NOTE | 2022-03-19 07:00 | CA_ITS ---
Transthoracic Echocardiogram Patient (Last, First, Middle): Scottie Encinas J Gender: Male Date of : 1940 Age: 82 Procedure Date: 03/19/2022 Procedure Type: Transthoracic Echocardiogram Location: S3E Height: 185.42 cm Weight: 73.48 kg BSA: 1.97 m2 Heart Rate: bpm BP: 158 / 93 mmHg Rejector: KATERYNA Henderson MD: Rafaela CORADO Supervisor [place]: Honorio Hernández MD Symptoms: chf exacerbation Study Quality: Good ECG Rhythm: Atrial Fibrillation Conclusions: - 1. Mildly reduced LV ejection fraction with LVEF of 45-50% 2. Severe left atrial enlargement and moderate right atrial enlargement 3. Mild mitral regurgitation 4. Normal RV systolic pressure 5. Trivial pericardial effusion Findings Left Ventricle Normal left ventricular cavity size. There is normal left ventricular wall thickness. The left ventricular systolic function is mildly decreased. The visually estimated ejection fraction is between 45-50%. Diastolic function is indeterminate on the basis of available data. Right Ventricle Mildly increased right ventricular cavity size. There is normal right ventricular systolic function. Atria The left atrium is severely dilated. There is no evidence of interatrial shunt. The right atrium is moderately dilated. Aortic Valve The aortic valve structure and function is likely normal. There is no aortic valve stenosis. There is no aortic valve regurgitation. Mitral Valve There is mild anterior and posterior mitral leaflet thickening. There is mild mitral annular calcification. There is mild mitral valve regurgitation. There is no mitral valve stenosis. Pulmonic Valve The pulmonic valve was not well visualized. Tricuspid Valve Likely normal tricuspid valve structure and function. There is mild tricuspid valve regurgitation. The right ventricular systolic pressure is normal. The right ventricular systolic pressure is 33 mmHg. Normal right atrial pressure. There is no evidence of pulmonary hypertension. Great Vessels The aorta was not well visualized. The pulmonary artery was not well visualized. Venous The inferior vena cava is normal in size and collapses greater than 50% with inspiration. Pericardium/Pleural There is a trivial loculated pericardial effusion overlying the right ventricle and right atrium. There is a bilateral pleural effusion. Prior Study Comparison Changes noted compared to prior study dated: 06/15/2021. LV systolic function is mildly reduced Measurements 2D Linear Measurements IVSd: 1.21 0.6-0.9/0.6-1.0 cm LVIDd: 5.61 3.9-5.3/4.2-5.9 cm LVIDd Index: 2.85 2.4-3.2/2.2-3.1 cm/m2 LVIDs: 3.75 2.0-3.6 cm LVPWd: 1.09 0.7-1.1 cm LA Diam: 5.00 2.7-3.8/3.0-4.0 cm LAIDs Index: 2.54 1.5-2.3 cm/m2 LV Mass: 331.09 67-162/88-224 g LV Mass Index: 168.07 43-95/49-115 g/m2 LVOT Diam: 2.50 3.0+(-)1.3 cm 2D Systolic Function EF 4C: 49.80 >55% EF 2C: 46.40 >55% EF BiP: 48.10 >55% Mitral Valve E'Lateral: 10.00 E'Medial: 6.53 Aortic Valve AoV Pk Robb: 1.04 AoV Mn Robb: 0.74 AoV VTI: 0.17 AoV Pk Grad: 4.00 Aov Mn Grad: 3.00 AMANDEEP Cont.VTI: 4.03 LVOT LVOT Pk Robb: 0.75 LVOT Mn Robb: 0.53 LVOT VTI: 0.14 LVOT Pk Grad: 2.00 LVOT Mn Grad: 1.00 LVOT Diam: 2.50 LVOT Area: 4.91 Diastolic Function E'Medial: 6.53 E' Laterial: 10.00 Right Ventricle TAPSE (mm): 20.30 TVS' Robb: 9.36 Tricuspid Valve TR Pk Robb: 2.75 TR Pk Grad: 30.00 RA Press: 3.00 RVSP: 33.00 Great Vessels Aorta Sinus of Valsalva: 4.10 2.0-3.5 cm Ao Asc: 3.70 2.1-3.4 cm Pulmonary Valve PV Pk Robb: 1.10 Peak PV Grad: 5.00 Updated in Other Vendor System with Status of Final Honorio Hernández MD electronically signed on 03/19/2022 4:41:37 PM with status of Final
[2022-03-19 07:05] LABS: Prothrombin Time 76.7 SEC (10.0-13.1)
[2022-03-19 07:23] LABS: Anion Gap 14 (12-20); B Type Natriuretic Peptide 466 pg/mL (<100); Blood Urea Nitrogen 49 mg/dL (9-16); Calcium 8.4 mg/dL (8.4-10.2); Carbon Dioxide 34 mmol/L (22-29); Chloride 101 mmol/L (96-108); Creatinine Clr Calc Pharmacy 53.8; Estimated Glomerular Filt Rate > 60; Glucose Random 155 mg/dL (60-115); Potassium 4.6 mmol/L (3.3-5.1); Sodium 144 mmol/L (135-145)
[2022-03-19] MEDS: Furosemide 40 MG TABLET PO ×2 (07:29→16:52)
[2022-03-19] MEDS: Potassium Chloride ER 20 MEQ TAB.ER.PRT PO (07:29)
[2022-03-19] MEDS: Calcium + Vitamin D 250 MG TABLET PO (07:29)
[2022-03-19] MEDS: Metoprolol Succinate ER 50 MG TAB.ER.24H PO ×3 (07:29→21:06)
[2022-03-19] MEDS: 0.9 % Sodium Chloride Flush 3 ML SYRINGE IVFLUSH ×3 (07:30→22:48)
[2022-03-19] MEDS: Doxycycline Monohydrate 100 MG CAPSULE PO ×2 (07:30→21:06)
[2022-03-19] MEDS: Multivitamin TABLET 1 TAB PO (07:30)
[2022-03-19] MEDS: Nicotine 14 MG PATCH.TD24 TRANSDERMA (07:30)
[2022-03-19] MEDS: Folic Acid 1 MG TABLET PO (07:30)
[2022-03-19 07:55] LABS: INTERNATIONAL NORM RATIO 6.2 (0.9-1.1)
[2022-03-19] MEDS: Albuterol/Iprat 2.5/0.5MG 3 ML AMPUL.NEB INHALE ×3 (08:06→21:16)
--- NOTE | 2022-03-19 09:34 | MHC.CM.PN ---
PATIENT CURRENTLY BEDSIDE ECHO. HE DOES REPORT HAVING A VNA AND IS UNSURE IF IT IS STILL [facility] HCP ON FILE AND VERIFIED. CM TO RETURN IMM 03/19 IN CHART
[2022-03-19] MEDS: methylPREDNISolone Sod Succ 125 MG/2 ML VIAL 60 MG IVPUSH ×2 (12:14→22:46)
--- NOTE | 2022-03-19 12:25 | PM.PNCARD ---
Subjective Subjective Date of Service: 03/19/22 Principal diagnosis: COPD exacerbation Interval history: Patient currently continues to have wheezing. Denies any palpitations. Heart rate is borderline better control. No significant symptoms suggestive of heart failure. BNP is improved to his baseline Review of Systems Review of Systems Yes all other systems are reviewed and are negative Physical Exam Vital Signs: Last Vital Signs Temp 96.1 F L 03/19/22 10:53 Pulse 108 H 03/19/22 11:04 Resp 18 03/19/22 11:04 BP 134/60 03/19/22 10:53 Pulse Ox 96 03/19/22 10:53 O2 Del Method 03/19/22 10:53 O2 Flow Rate 2 03/19/22 03:18 BMI result Body Mass Index 21.4 Const General: cooperative, comfortable, no acute distress, alert, awake and ill appearing Nutritional Appearance: underweight and other (Frail elderly man) Orientation/consciousness: patient oriented x3 Limitations: wheelchair Neck Neck: Yes trachea midline, Yes supple and Yes no JVD Resp Effort & Inspection: normal respiratory effort Auscultation: clear to auscultation bilaterally and diminished lung sounds Cardio Jugular venous distension: no JVD Rate: tachycardic Rhythm: abnormal rhythm irregularly irregular Heart sounds: S1 normal heart sound present, S2 normal heart sound present, no click, no gallops, no murmurs and no rubs GI Auscultation: normal bowel sounds Skin General skin exam: no rashes or lesions noted and ecchymosis Neuro General: patient oriented x3 and no focal motor deficits Extrem General: No clubbing, No cyanosis and Yes edema Objective Labs and Meds Result diagrams: 03/17/22 11:09 03/19/22 06:20 Lab results: Laboratory Results - last 24 hr 03/18/22 03/19/22 03/19/22 09:56 06:20 06:20 PT 76.7 H INR 6.2 H* Sodium 144 Potassium 4.6 Chloride 101 Carbon Dioxide 34 H Anion Gap 14 BUN 49 H Creatinine 1.08 Estim Creat Clear Calc 53.8 Estimated GFR > 60 Random Glucose 155 H D Calcium 8.4 B-Natriuretic Peptide Respiratory Panel Pratt See Note Adenovirus (Rapid PCR) Not Detected B.pert (TEM-PCR) Not Detected B.parapertussis DNA PCR Not Detected C. pneumoniae DNA (PCR) Not Detected Coronavirus OC43 (PCR) Not Detected Coronavirus HKU1 (PCR) Not Detected Coronavirus 229E (PCR) Not Detected Coronavirus NL63 (PCR) Not Detected Human Metapneumovir PCR Not Detected Influenza A (RT-PCR) Not Detected Influenza B (RT-PCR) Not Detected M. pneumoniae (PCR) Not Detected Parainfluenza 1 (PCR) Not Detected Parainfluenza 2 (PCR) Not Detected Parainfluenza 3 (PCR) Not Detected Parainfluenza 4 (PCR) Not Detected RSV (PCR) Not Detected Entero/Rhino (PCR) Not Detected SARS-CoV-2 RNA (RT-PCR) Not Detected 03/19/22 06:20 PT INR Sodium Potassium Chloride Carbon Dioxide Anion Gap BUN Creatinine Estim Creat Clear Calc Estimated GFR Random Glucose Calcium B-Natriuretic Peptide 466 H Respiratory Panel Pratt Adenovirus (Rapid PCR) B.pert (TEM-PCR) B.parapertussis DNA PCR C. pneumoniae DNA (PCR) Coronavirus OC43 (PCR) Coronavirus HKU1 (PCR) Coronavirus 229E (PCR) Coronavirus NL63 (PCR) Human Metapneumovir PCR Influenza A (RT-PCR) Influenza B (RT-PCR) M. pneumoniae (PCR) Parainfluenza 1 (PCR) Parainfluenza 2 (PCR) Parainfluenza 3 (PCR) Parainfluenza 4 (PCR) RSV (PCR) Entero/Rhino (PCR) SARS-CoV-2 RNA (RT-PCR) Imaging Radiologist's impression: Impressions Chest X-Ray 03/18/22 09:36 IMPRESSION: Stable enlargement of the cardiac silhouette. Atelectasis/consolidation at the left lung base and small left pleural effusion. Chest CT 03/18/22 17:28 IMPRESSION: 1. Increase in size of right upper lobe mass. 2. Unchanged left pleural effusion. 3. Other incidental findings as described above including severe COPD and extensive coronary calcification. Fleischner guidelines were followed. Progress Note: A&P Assessment and plan (1) Atrial fibrillation with rapid ventricular response: Status: Acute Assessment and Plan: Atrial fibrillation with better rate control. Can change metoprolol to 100 mg b.i.d.. Continue digoxin at current dose. Overall should also switch to pulmonary specific bronchodilators such as Xopenex. Warfarin on hold due to elevated INR.. Target INR between 2 and 3. (2) Congestive heart failure: Status: Acute Assessment and Plan: Heart failure syndrome overall seems stable. BNP his back to baseline. Switch to p.o. Lasix 60 mg daily. Strict intake and output chart needs to be pursued. Continue manages COPD. Overall prognosis is guarded. No change in therapy otherwise. (3) Acute exacerbation of chronic obstructive pulmonary disease: Status: Acute Assessment and Plan: Acute COPD exacerbation, consider pulmonary consultation. Switch to Xopenex nebulizers. He does have underlying advancing lung malignancy. Also has a left-sided pleural effusion which will be manage conservatively. At this point time will sign of the case. Time Spent With Patient Time: Total time spent is greater than 50% in coordination of care (as documented) at patient's floor/unit and/or counseling patient: Progress Note: Quality Stroke Does the patient have a stroke diagnosis?: No Procedures Date of Service Date of Service: 03/19/22
--- NOTE | 2022-03-19 13:15 | MHC.CM.PN ---
PATIENT LIVES ALONE. HE HAS NO HOME O2 OR ELDER SERVICES. HE DOES HAVE [facility] RN VISITS 1-2 X/WEEK, OR NEEDED. HE DOES NOT WANT SNF REFERRALS AND ASKS FOR A REFERRAL TO [facility] WHO HE PREFERS FOR SERVICES. REFERRAL PLACED. CASE MANAGEMENT FOLLOWING FOR DC NEEDS HCP ON FILE. IMM 03/18 PREVIOUSLY COMPLETED
--- NOTE | 2022-03-19 13:28 | PM.CNPUL ---
History of Present Illness History of Present Illness Consult date: 03/19/22 Requesting physician: Rafaela Solo Chief complaint: CHF Exacerbation COPD Exacerbation Narrative: 82-year-old gentleman with underlying severe COPD and recurrent lung cancer, previously status post right lobectomy with recurrence of metastatic disease, now under care of [facility] thoracic and radiation oncology admitted on 03/18/2022 with worsening shortness of breath and productive cough ongoing for about 3-4 days. Patient was treated empirically for exacerbation of underlying COPD and congestive heart failure with significant improvement. CT chest was obtained that demonstrated and improved from prior left pleural effusion and known right apical mass. Pulmonary input was requested. On my evaluation patient states that his dyspnea has improved significantly since admission, however he does continue to complaining of productive cough and wheezing. Review of Systems Constitutional: Constitutional: Denies daytime sleepiness, Denies excessive sweating, Denies fatigue, Denies fever(s), Denies lethargy, Denies malaise, Denies night sweats, Denies snoring and Denies weight loss Eyes: Eyes: Denies blurry vision and Denies itchy eyes ENT: Denies nasal congestion, Denies post nasal drip, Denies sinus pain, Denies sinus pressure and Denies other ( Thrush) Cardiovascular: Cardiovascular: Denies chest pain, Denies pedal edema, Denies dyspnea, Reports dyspnea on exertion, Denies orthopnea and Denies paroxysmal nocturnal dyspnea Respiratory: Respiratory: Reports cough, Denies hemoptysis, Reports excessive phlegm production, Denies dyspnea, Reports dyspnea on exertion, Denies snoring and Reports wheezing Gastrointestinal: Gastrointestinal: Denies abdominal pain and Denies heartburn Musculoskeletal: Musculoskeletal: Denies myalgias, Denies arthralgias and Denies joint swelling Integumentary/Breasts: Skin/Breast: Denies rash Neurologic: Denies memory loss and Denies seizure-like activity Psychiatric: Psychiatric: Denies abnormal sleep pattern, Denies anxiety and Denies memory loss Endocrine: Endocrine: Denies excessive sweating, Denies fatigue and Denies heat intolerance Hematologic/Lymphatic: Hematologic/Lymphatic: Denies easy bruising Allergic/Immunologic: Allergic/Immunologic: Denies itchy eyes, Denies seasonal rhinorrhea and Reports wheezing PMFSH Past Medical History Medical History Anemia Back pain Benign essential hypertension Bilateral lower extremity edema CAD (coronary artery disease) Cancer of upper lobe of right lung (~2013) Chronic atrial fibrillation Congestive heart failure COPD (chronic obstructive pulmonary disease) Gout Heart failure with reduced ejection fraction HLD (hyperlipidemia) Lumbar degenerative disc disease Neuropathy Osteoarthritis Osteoarthritis of knees, bilateral PAD (peripheral artery disease) Physical deconditioning Recurrent non-small cell lung cancer Smoker Type 2 diabetes mellitus with other diabetic kidney complication Vitamin D deficiency Wears dentures Family History Family History Mother Heart disease Father Heart disease Surgical History Surgical History History of angioplasty (~12/2020) History of back surgery History of brain surgery (~2003) History of bronchoscopy (~2020) History of cardiac cath (~02/2016) History of colonoscopy (~01/2001) History of lung biopsy History of lung surgery (~07/2013) History of lung surgery (~2019) History of partial colectomy (~01/2001) History of right knee surgery (~09/2005) History of thoracentesis (~09/2019) Social History Social History Household Members: None Housing: Condominium Are you a primary healthcare consulting manager to a significant other at home: No Do you presently have visiting nurse or other home services: No Alcohol intake: former Patient Tobacco Use Status: Current everyday Tobacco user Tobacco use type: Cigarette Cigarette Packs Per Day: 0.5 Cigarettes Per Day: 10 Years Smoked: 50 Second Hand Smoke Exposure: No Advance Directives Date on File: 10/05/21 service: No Current occupational status: retired Cognitive needs: Yes (cane) Hearing needs: No Vision needs: Yes Meds Allergies Allergy/AdvReac Type Severity Reaction Status Date / Time No Known Allergies Allergy Unknown UNKNOWN Verified 03/12/22 15:55 [NO KNOWN ALLERGIES] Active Medications: Current Medications Acetaminophen (Acetaminophen 325 Mg Tablet) 650 mg PO Q6H PRN PRN Reason: Pain, Mild (Pain Scale 1-3) Albuterol/Ipratropium (Albuterol/Iprat 2.5/0.5mg 3 Ml Ampul.Neb) 3 ml INHALE RQ4H WHILE AWAKE [facility] Last Admin: 03/19/22 11:03 Dose: 3 ml Albuterol/Ipratropium (Albuterol/Iprat 2.5/0.5mg 3 Ml Ampul.Neb) 3 ml INHALE RQ4H PRN PRN Reason: wheezing Aspirin (Aspirin Enteric Coated 81 Mg Tablet.) 81 mg PO DAILY@1500 [facility] Last Admin: 03/18/22 16:18 Dose: 81 mg Atorvastatin Calcium (Atorvastatin Calcium 40 Mg Tablet) 40 mg PO BEDTIME [facility] Last Admin: 03/18/22 20:39 Dose: 40 mg Calcium Carbonate/Cholecalciferol (Calcium + Vitamin D 250 Mg Tablet) 250 mg PO DAILY [facility] Last Admin: 03/19/22 07:29 Dose: 250 mg Digoxin (Digoxin 0.125 Mg Tablet) 0.125 mg PO SUMOWEFRSA@0900 [facility] Last Admin: 03/18/22 09:16 Dose: 0.125 mg Doxycycline Monohydrate (Doxycycline Monohydrate 100 Mg Capsule) 100 mg PO Q12H [facility] Stop: 03/23/22 21:01 Last Admin: 03/19/22 07:30 Dose: 100 mg Ferrous Sulfate (Ferrous Sulfate 324 Mg Tablet.) 324 mg PO DAILY@1500 [facility] Last Admin: 03/18/22 16:19 Dose: 324 mg Folic Acid (Folic Acid 1 Mg Tablet) 1 mg PO DAILY [facility] Last Admin: 03/19/22 07:30 Dose: 1 mg Furosemide (Furosemide 40 Mg Tablet) 40 mg PO BID@0900,1700 [facility]; Protocol Last Admin: 03/19/22 07:29 Dose: 40 mg Lorazepam (Lorazepam 0.5 Mg Tablet) 0.25 mg PO Q6H PRN PRN Reason: Anxiety Methylprednisolone Sodium Succinate (Methylprednisolone Sod Succ 125 Mg/2 Ml Vial) 60 mg IVPUSH Q12H [facility] Last Admin: 03/19/22 12:14 Dose: 60 mg Metoprolol Succinate (Metoprolol Succinate Er 50 Mg Tab.Er.24h) 50 mg PO TID [facility]; Protocol Last Admin: 03/19/22 07:29 Dose: 50 mg Morphine Sulfate (Morphine Sulfate 2 Mg/Ml Cartridge) 2 mg IVPUSH Q3H PRN; Protocol PRN Reason: Dyspnea Last Admin: 03/18/22 03:43 Dose: 2 mg Multivitamins/Vitamin C (Multivitamin Tablet) 1 tab PO DAILY [facility] Last Admin: 03/19/22 07:30 Dose: 1 tab Nicotine (Nicotine 14 Mg Patch.Td24) 14 mg TRANSDERMA DAILY [facility] Last Admin: 03/19/22 07:30 Dose: 14 mg Non-Formulary Medication (Febuxostat) 40 mg PO Q2D [facility] Ondansetron HCl (Ondansetron Hcl 4 Mg/2 Ml Vial) 4 mg IVPUSH Q8H PRN PRN Reason: Nausea and Vomiting Pharmacy Consult (Consult Rx Perform Med Rec) 1 each MISCELLANE ONCE PRN PRN Reason: Consult order Potassium Chloride (Potassium Chloride Er 20 Meq Tab.Er.Prt) 20 meq PO DAILY [facility] Last Admin: 03/19/22 07:29 Dose: 20 meq Senna (Sennosides 8.6 Mg Tablet) 17.2 mg PO BEDTIME PRN PRN Reason: Constipation Sodium Chloride (0.9 % Sodium Chloride Flush 3 Ml Syringe) 3 ml IVFLUSH QSHIFT [facility] Last Admin: 03/19/22 07:30 Dose: 3 ml Valsartan (Valsartan 40 Mg Tablet) 40 mg PO DAILY [facility]; Protocol Home Medications Medication Instructions Recorded Confirmed Last Taken Type calcium carbonate 600 mg-vitamin 1 tab PO DAILY 07/10/20 03/17/22 03/16/22 History D3 5 mcg (200 unit) tablet multivitamin 1 tab PO DAILY 07/10/20 03/17/22 03/16/22 History nicotine 14 mg/24 hr daily 1 patch transdermal DAILY@1500 07/10/20 03/17/22 03/16/22 History transdermal patch warfarin 1 mg tablet 1 mg PO SUTUWETHFR@1800 07/20/21 03/12/22 03/16/22 History aspirin 81 mg tablet,delayed 81 mg PO DAILY@1500 09/22/21 03/17/22 03/16/22 History release (Adult Low Dose Aspirin) valsartan 40 mg tablet 40 mg PO DAILY 09/22/21 03/17/22 03/16/22 History warfarin 1 mg tablet (Jantoven) 2 mg PO MOSA@1800 10/05/21 03/12/22 03/16/22 History atorvastatin 40 mg tablet 40 mg PO BEDTIME 03/11/22 03/17/22 03/16/22 History febuxostat 40 mg tablet 40 mg PO Q2D for gout pain 03/11/22 03/17/22 03/16/22 History digoxin 125 mcg (0.125 mg) tablet 125 mcg PO SUMOWEFRSA@0900 03/17/22 03/17/22 03/16/22 History ferrous sulfate 325 mg (65 mg 325 mg PO DAILY@1500 03/17/22 03/17/22 03/16/22 History iron) tablet furosemide 40 mg tablet 40 mg PO BID@0900,1700 03/17/22 03/17/22 03/16/22 History vit C 250 mg-vit E 90 mg-zinc 40 1 tab PO DAILY 03/17/22 03/17/22 03/16/22 History mg-copper 1 [id number] capsule (PreserVision AREDS-2) warfarin 1 mg tablet 1 mg PO MOWEFR@1800 03/17/22 03/17/22 03/16/22 History warfarin 1 mg tablet 2 mg PO SUTUTHSA@1800 03/17/22 03/17/22 03/16/22 History Physical Exam Vital Signs: Vital Signs: Last Vital Signs Temp 96.1 F L 03/19/22 10:53 Pulse 108 H 03/19/22 11:04 Resp 18 03/19/22 11:04 BP 134/60 03/19/22 10:53 Pulse Ox 96 03/19/22 10:53 O2 Del Method 03/19/22 10:53 O2 Flow Rate 2 03/19/22 03:18 BMI result Body Mass Index 21.4 Const: General: no acute distress and alert Nutritional Appearance: not obese Orientation/consciousness: Other orientation findings ( oriented) HEENT: Head: Yes atraumatic Mouth: no other ( thrush) Throat: No postnasal drainage Eyes: General: appearance normal, both eyes and all related structures Sclerae: sclerae normal EOM: EOMs intact bilaterally Neck: Neck: Yes supple Lymphatic: no lymphadenopathy noted Resp: Effort & Inspection: normal respiratory effort and no use of accessory muscles Auscultation: wheezes expiratory wheezes ( Bilateral throughout) Cardio: Rate: regular rate Rhythm: regular rhythm Heart sounds: no gallops, no murmurs and no rubs GI: Palpation (GI): Soft to palpation and Other GI palpation findings present ( nontender) Skin: General skin exam: other ( warm) Rashes: no rashes Extrem: General: No clubbing, No cyanosis and No edema Results Laboratory Findings CBC and BMP: 03/17/22 11:09 03/19/22 06:20 ABG, PT/INR, D-dimer: PT/INR, D-dimer PT 76.7 SEC (10.0-13.1) H 03/19/22 06:20 INR 6.2 (0.9-1.1) H* 03/19/22 06:20 Abnormal lab findings: Abnormal Labs 03/17/22 03/17/22 03/17/22 11:09 11:09 11:09 WBC 4.2 L RBC 3.75 L Hgb 12.7 L Hct 40.0 L MCV 106.7 H MCH 33.9 H Plt Count 155 L Lymph % (Auto) 14.9 L Lymph # (Auto) 0.6 L PT INR APTT Sodium 148 H Carbon Dioxide 36 H BUN 34 H Random Glucose Troponin I High Sens 44.0 H D B-Natriuretic Peptide Total Protein 5.9 L Albumin 3.4 L Urine Protein Urine Blood 03/17/22 03/17/22 03/17/22 11:09 11:09 11:25 WBC RBC Hgb Hct MCV MCH Plt Count Lymph % (Auto) Lymph # (Auto) PT 60.1 H INR 4.9 H APTT 47.1 H Sodium Carbon Dioxide BUN Random Glucose Troponin I High Sens B-Natriuretic Peptide 1021 H Total Protein Albumin Urine Protein 30 (1+) H Urine Blood Trace H 03/18/22 03/18/22 03/18/22 07:13 07:13 07:13 WBC RBC Hgb Hct MCV MCH Plt Count Lymph % (Auto) Lymph # (Auto) PT 79.3 H INR 6.4 H* APTT Sodium 149 H Carbon Dioxide 38 H BUN 36 H Random Glucose 125 H Troponin I High Sens B-Natriuretic Peptide 938 H Total Protein Albumin Urine Protein Urine Blood 03/19/22 03/19/22 03/19/22 06:20 06:20 06:20 WBC RBC Hgb Hct MCV MCH Plt Count Lymph % (Auto) Lymph # (Auto) PT 76.7 H INR 6.2 H* APTT Sodium Carbon Dioxide 34 H BUN 49 H Random Glucose 155 H D Troponin I High Sens B-Natriuretic Peptide 466 H Total Protein Albumin Urine Protein Urine Blood Microbiology: Microbiology 03/17/22 11:18 Blood - Venous Blood Culture - Preliminary No growth after 48 hours. 03/17/22 11:09 Blood - Venous Blood Culture - Preliminary No growth after 48 hours. Assessment and Plan (1) Acute respiratory failure with hypoxia: Status: Acute (2) Lung cancer: Status: Acute (3) COPD exacerbation: Status: Acute Plan Impression: 82-year-old gentleman with known recurrent metastatic lung cancer under care of [facility] thoracic and radiation oncology admitted with dyspnea and acute hypoxic respiratory failure secondary to combination of exacerbation of underlying congestive heart failure and COPD, treated with diuretic, empiric antibiotics, and bronchodilators/ glucocorticoids, now with significant improvement. Recommendations: Agree with current treatment regimen including nebulized bronchodilators and systemic glucocorticoids, consider switching doxycycline to azithromycin. Consider and test was for symptomatic relief. Patient to follow-up with his treating oncologists after discharge. Procedures Date of Service Date of Service: 03/19/22
[2022-03-19] MEDS: Ferrous Sulfate 324 MG TABLET.DR PO (14:18)
[2022-03-19] MEDS: Aspirin Enteric Coated 81 MG TABLET.DR PO (14:19)
--- NOTE | 2022-03-19 15:11 | P.PNIM_ITS ---
Subjective Subjective Date of Service: 03/20/22 Interval History: COPD exacerbation ,CHF exacerbation, elevated inr Review of Systems sob seems somewhat improvin denies any chest pain or abd pain or nausea or vomitin Physical Exam Vital Signs: Vital Signs: Last Vital Signs Temp 96.1 F L 03/19/22 10:53 Pulse 100 03/19/22 14:19 Resp 18 03/19/22 11:04 BP 107/74 03/19/22 14:19 Pulse Ox 96 03/19/22 10:53 O2 Del Method 03/19/22 10:53 O2 Flow Rate 2 03/19/22 03:18 BMI result Body Mass Index 21.4 Appearance: Alert.? Oriented X3.?still sob cvs: rrr, [id number] , no murmur res: air entry seems diminshed , has wheezin abd: no rebound or guarding ,nt, bs present. ext pulses present , no cyanosis . neuro: axo3 , nonfocal. in Objective Data Active Medications Acetaminophen (Acetaminophen 325 Mg Tablet) 650 mg PO Q6H PRN PRN Reason: Pain, Mild (Pain Scale 1-3) Albuterol/Ipratropium (Albuterol/Iprat 2.5/0.5mg 3 Ml Ampul.Neb) 3 ml INHALE RQ4H WHILE AWAKE [facility] Last Admin: 03/19/22 15:05 Dose: Not Given Documented By: CHICO Non-Admin Reason: pt refused wants to sleep Albuterol/Ipratropium (Albuterol/Iprat 2.5/0.5mg 3 Ml Ampul.Neb) 3 ml INHALE RQ4H PRN PRN Reason: wheezing Aspirin (Aspirin Enteric Coated 81 Mg Tablet.) 81 mg PO DAILY@1500 [facility] Last Admin: 03/19/22 14:19 Dose: 81 mg Documented By: ESPERANZA Atorvastatin Calcium (Atorvastatin Calcium 40 Mg Tablet) 40 mg PO BEDTIME [facility] Last Admin: 03/18/22 20:39 Dose: 40 mg Documented By: CASTILYaron Calcium Carbonate/Cholecalciferol (Calcium + Vitamin D 250 Mg Tablet) 250 mg PO DAILY [facility] Last Admin: 03/19/22 07:29 Dose: 250 mg Documented By: ESPERANZA Digoxin (Digoxin 0.125 Mg Tablet) 0.125 mg PO SUMOWEFRSA@0900 [facility] Last Admin: 03/18/22 09:16 Dose: 0.125 mg Documented By: ESPERANZA Doxycycline Monohydrate (Doxycycline Monohydrate 100 Mg Capsule) 100 mg PO Q12H [facility] Stop: 03/23/22 21:01 Last Admin: 03/19/22 07:30 Dose: 100 mg Documented By: ESPERANZA Ferrous Sulfate (Ferrous Sulfate 324 Mg Tablet.) 324 mg PO DAILY@1500 [facility] Last Admin: 03/19/22 14:18 Dose: 324 mg Documented By: ESPERANZA Folic Acid (Folic Acid 1 Mg Tablet) 1 mg PO DAILY [facility] Last Admin: 03/19/22 07:30 Dose: 1 mg Documented By: ESPERANZA Furosemide (Furosemide 40 Mg Tablet) 40 mg PO BID@0900,1700 [facility]; Protocol Last Admin: 03/19/22 07:29 Dose: 40 mg Documented By: ESPERANZA Lorazepam (Lorazepam 0.5 Mg Tablet) 0.25 mg PO Q6H PRN PRN Reason: Anxiety Methylprednisolone Sodium Succinate (Methylprednisolone Sod Succ 125 Mg/2 Ml Vial) 60 mg IVPUSH Q12H [facility] Last Admin: 03/19/22 12:14 Dose: 60 mg Documented By: ESPERANZA Metoprolol Succinate (Metoprolol Succinate Er 50 Mg Tab.Er.24h) 50 mg PO TID [facility]; Protocol Last Admin: 03/19/22 14:19 Dose: 50 mg Documented By: ESPERANZA Morphine Sulfate (Morphine Sulfate 2 Mg/Ml Cartridge) 2 mg IVPUSH Q3H PRN; Prot ocol PRN Reason: Dyspnea Last Admin: 03/18/22 03:43 Dose: 2 mg Documented By: CASTILYaron Multivitamins/Vitamin C (Multivitamin Tablet) 1 tab PO DAILY [facility] Last Admin: 03/19/22 07:30 Dose: 1 tab Documented By: ESPERANZA Nicotine (Nicotine 14 Mg Patch.Td24) 14 mg TRANSDERMA DAILY [facility] Last Admin: 03/19/22 07:30 Dose: 14 mg Documented By: ESPERANZA Non-Formulary Medication (Febuxostat) 40 mg PO Q2D [facility] Ondansetron HCl (Ondansetron Hcl 4 Mg/2 Ml Vial) 4 mg IVPUSH Q8H PRN PRN Reason: Nausea and Vomiting Pharmacy Consult (Consult Rx Perform Med Rec) 1 each MISCELLANE ONCE PRN PRN Reason: Consult order Potassium Chloride (Potassium Chloride Er 20 Meq Tab.Er.Prt) 20 meq PO DAILY [facility] Last Admin: 03/19/22 07:29 Dose: 20 meq Documented By: ESPERANZA Senna (Sennosides 8.6 Mg Tablet) 17.2 mg PO BEDTIME PRN PRN Reason: Constipation Sodium Chloride (0.9 % Sodium Chloride Flush 3 Ml Syringe) 3 ml IVFLUSH QSHIFT [facility] Last Admin: 03/19/22 14:19 Dose: 3 ml Documented By: ESPERANZA Valsartan (Valsartan 40 Mg Tablet) 40 mg PO DAILY [facility]; Protocol Labs CBC & Chem 7: 03/17/22 11:09 03/20/22 06:36 Labs: Laboratory Results - last 24 hr 03/19/22 03/19/22 03/19/22 06:20 06:20 06:20 PT 76.7 H INR 6.2 H* Anion Gap 14 Estim Creat Clear Calc 53.8 Estimated GFR > 60 Random Glucose 155 H D Calcium 8.4 B-Natriuretic Peptide 466 H Microbiology Microbiology Results: Microbiology 03/17/22 11:18 Blood Culture - Preliminary Blood - Venous No growth after 48 hours. 03/17/22 11:09 Blood Culture - Preliminary Blood - Venous No growth after 48 hours. Assessment and Plan (1) COPD exacerbation: Status: Acute (2) Atrial fibrillation with rapid ventricular response: Status: Acute (3) Acute respiratory failure with hypoxia: Status: Acute Plan 82 year old male with history of HF with recovered EF, coronary artery disease s/p cardiac cath 02/2016, PAD s/p bilateral iliac angioplasty, recurrent non- small cell lung cancer of the right lung s/p wedge resection, chronic atrial fibrillation anticoagulated with Coumadin, hyperlipidemia, hypertension, COPD, ongoing smoker among others to be admitted for COPD and CHF exacerbation with acute hypoxemic respiratory failure. #Acute hypoxemic respiratory failure-secondary to COPD and CHF exacerbation -non oxygen dependent at home -Subjectively improvng but still requiring 2L supplemental O2 via NC -Continue supplemental O2 to maintain oximetry 90-92%. Continue morphine prn for increased WOB -Evaluated by cardiology- not felt to be in profound heart failure currently. Recommending further pulmonary evaluation -treat CHF and COPD as below -admit to telemetry #AFib with RVR -HR 80-100's range -BP soft. Hold fluids per cardiology -Continue metoprolol and PO dig. Add dig .125mg q6h x 2 -INR remains supratherapeutic. Follow INR -Resume warafarin once INR therapeutic. #HF recovered EF/Cardiomyopathy -Evaluated by cards. Not felt to be in profound HF. Elevated BNP thought to be secondary to hypoxic respiratory failure or RV strain. -Hold on IV diuretic. Continue home PO diuretics -BNP trending down. Continue to follow BNP -strict I&O -daily weights -cardiac diet -admit to telemetry -follow BMP and BNP #Left sided pleural effusion -Improved since last CXR -Not felt to be in profound CHF -Cards recommending pulm eval for further evaluation of pleural effusion and hypoxia- ?mucus plugging, ?malignancy -Continue diuresis as above and if no improvement consider thoracentesis. Appreciate pulm input # acute COPD exacerbation- mild tachycardia, likely secondary to increased work of breathing/dyspnea. -Respiratory panel neg -Continue with supplemental O2 as above -CXR without evidence of focal consolidation -Continue azithromycin 500mg daily. D2 -Duonebs q4h while awake -albuterol neb q2h prn -IV solumedrol 60mg bid -Patient tachypnea scondary to COPD exacerbation, tachycardia secondary to albuterol use and increased work of breathing. Will check rectal temp to r/o fever. No sepsis/severe sepsis suspected #elevated trop -Initial 44, repeat 16.2 -EKG without JONATAN, denies cp -likely demand #Chronic macrocytic Anemia -H/H above baseline -on iron and folic acid supplementation at home #Tobacco dependence -Smoking cessation advised -NRT #NSCLC -outpatient follow up #HLD -continue statin #CAD/PAD-no anginal chest pain -EKG any ST/T-wave abnormality -continue statin, ASA DVT prophylaxis-resume Coumadin once INR therapeutic.? INR currently supratherapeutic at 3.3 on going inpatient need-COPD exacerbation- needs IV steroids, nebs, oxygen support and respiratory monitoring Quality Stroke Does the patient have a stroke diagnosis?: No VTE Prior VTE?: No VTE Risk Level:: Medical - moderate - high VTE Device Contraindication: Treatment Not Indicated VTE Drug Contraindication: N/A - Med Ordered
[2022-03-19] MEDS: Atorvastatin Calcium 40 MG TABLET PO (21:05)
[2022-03-20] VITALS (10 sets, daily range): BP systolic 116–144; BP diastolic 62–73; PULSE 86–110; RESP 16–19; TEMP 36–36.6; O2SAT 90–96
[2022-03-20] MEDS: Albuterol/Iprat 2.5/0.5MG 3 ML AMPUL.NEB INHALE ×5 (06:27→20:06)
[2022-03-20 07:34] LABS: INTERNATIONAL NORM RATIO 3.3 (0.9-1.1); Prothrombin Time 39.8 SEC (10.0-13.1)
[2022-03-20 07:54] LABS: Anion Gap 13 (12-20); Blood Urea Nitrogen 57 mg/dL (9-16); Calcium 8.4 mg/dL (8.4-10.2); Carbon Dioxide 36 mmol/L (22-29); Chloride 99 mmol/L (96-108); Creatinine Clr Calc Pharmacy 52.4; Estimated Glomerular Filt Rate > 60; Glucose Random 136 mg/dL (60-115); Potassium 4.6 mmol/L (3.3-5.1); Sodium 143 mmol/L (135-145)
[2022-03-20 08:07] LABS: B Type Natriuretic Peptide 702 pg/mL (<100)
[2022-03-20] MEDS: Potassium Chloride ER 20 MEQ TAB.ER.PRT PO (10:01)
[2022-03-20] MEDS: Calcium + Vitamin D 250 MG TABLET PO (10:01)
[2022-03-20] MEDS: Doxycycline Monohydrate 100 MG CAPSULE PO ×2 (10:01→22:06)
[2022-03-20] MEDS: Metoprolol Succinate ER 50 MG TAB.ER.24H PO ×3 (10:01→22:04)
[2022-03-20] MEDS: Multivitamin TABLET 1 TAB PO (10:01)
[2022-03-20] MEDS: Nicotine 14 MG PATCH.TD24 TRANSDERMA (10:02)
[2022-03-20] MEDS: Folic Acid 1 MG TABLET PO (10:02)
[2022-03-20] MEDS: Furosemide 40 MG TABLET PO ×2 (10:02→15:28)
[2022-03-20] MEDS: 0.9 % Sodium Chloride Flush 3 ML SYRINGE IVFLUSH ×3 (10:03→22:07)
[2022-03-20] MEDS: methylPREDNISolone Sod Succ 125 MG/2 ML VIAL 60 MG IVPUSH ×2 (10:03→22:06)
[2022-03-20] MEDS: Digoxin 0.125 MG TABLET PO (10:06)
--- NOTE | 2022-03-20 10:56 | MHC.CLN ---
F/U DIET=CARDIAC. ENSURE PUDDING BID PROVIDES ADDITIONAL 340 KCALS, 8 G PROTEIN. STAGE II WOUND TO BUTTOCKS. SUPPLEMENT TO PROMOTE WOUND HEALING. PO INTAKE USUALLY 100%. FOLLOWING FOR INTAKE AND SKIN INTEGRITY.
[2022-03-20] MEDS: Magnesium Sulfate/D5W 1 GM/100 ML PIGGYBACK IV (12:49)
[2022-03-20 12:50] LABS: VBG Base Excess 8.4 mmol/L; VBG HCO3 35 mmol/L (22-26); VBG pCO2 58 mmHg; VBG pH 7.38 (7.32-7.43); VBG pO2 41 mmHg
[2022-03-20 12:50] LABS: Venous Blood Gas Refer to POC result
[2022-03-20] MEDS: Ferrous Sulfate 324 MG TABLET.DR PO (15:28)
[2022-03-20] MEDS: Aspirin Enteric Coated 81 MG TABLET.DR PO (15:28)
--- NOTE | 2022-03-20 17:45 | P.PNIM_ITS ---
Subjective Subjective Date of Service: 03/21/22 Interval History: COPD exacerbation Review of Systems shortness of breath somewhat improving but still wheezing and feel tired Physical Exam Vital Signs: Vital Signs: Last Vital Signs Temp 98 F 03/20/22 10:55 Pulse 88 03/20/22 15:08 Resp 18 03/20/22 15:08 BP 121/73 03/20/22 10:55 Pulse Ox 91 L 03/20/22 10:55 O2 Del Method 03/20/22 10:55 O2 Flow Rate 2 03/20/22 07:31 BMI result Body Mass Index 21.4 Appearance: Alert.? Oriented X3.?still sob cvs: rrr, [id number] , no murmur res: air entry seems diminshed , has wheezin abd: no rebound or guarding ,nt, bs present. ext pulses present , no cyanosis . neuro: axo3 , nonfocal. Objective Data Active Medications Acetaminophen (Acetaminophen 325 Mg Tablet) 650 mg PO Q6H PRN PRN Reason: Pain, Mild (Pain Scale 1-3) Albuterol/Ipratropium (Albuterol/Iprat 2.5/0.5mg 3 Ml Ampul.Neb) 3 ml INHALE RQ4H WHILE AWAKE [facility] Last Admin: 03/20/22 15:07 Dose: 3 ml Documented By: CHICO Albuterol/Ipratropium (Albuterol/Iprat 2.5/0.5mg 3 Ml Ampul.Neb) 3 ml INHALE RQ4H PRN PRN Reason: wheezing Last Admin: 03/20/22 06:27 Dose: 3 ml Documented By: PARDEEP Aspirin (Aspirin Enteric Coated 81 Mg Tablet.) 81 mg PO DAILY@1500 [facility] Last Admin: 03/20/22 15:28 Dose: 81 mg Documented By: ANSON Atorvastatin Calcium (Atorvastatin Calcium 40 Mg Tablet) 40 mg PO BEDTIME [facility] Last Admin: 03/19/22 21:05 Dose: 40 mg Documented By: ALLISON Calcium Carbonate/Cholecalciferol (Calcium + Vitamin D 250 Mg Tablet) 250 mg PO DAILY [facility] Last Admin: 03/20/22 10:01 Dose: 250 mg Documented By: DAVID Digoxin (Digoxin 0.125 Mg Tablet) 0.125 mg PO SUMOWEFRSA@0900 [facility] Last Admin: 03/20/22 10:06 Dose: 0.125 mg Documented By: DAVID Doxycycline Monohydrate (Doxycycline Monohydrate 100 Mg Capsule) 100 mg PO Q12H [facility] Stop: 03/23/22 21:01 Last Admin: 03/20/22 10:01 Dose: 100 mg Documented By: DAVID Ferrous Sulfate (Ferrous Sulfate 324 Mg Tablet.) 324 mg PO DAILY@1500 [facility] Last Admin: 03/20/22 15:28 Dose: 324 mg Documented By: ANSON Folic Acid (Folic Acid 1 Mg Tablet) 1 mg PO DAILY [facility] Last Admin: 03/20/22 10:02 Dose: 1 mg Documented By: DAVID Furosemide (Furosemide 40 Mg Tablet) 40 mg PO BID@0900,1700 [facility]; Protocol Last Admin: 03/20/22 15:28 Dose: 40 mg Documented By: ANSON Guaifenesin (Guaifenesin La 600 Mg Tab.Er.12h) 600 mg PO BID [facility] Lorazepam (Lorazepam 0.5 Mg Tablet) 0.25 mg PO Q6H PRN PRN Reason: Anxiety Methylprednisolone Sodium Succinate (Methylprednisolone Sod Succ 125 Mg/2 Ml Vial) 60 mg IVPUSH Q12H [facility] Last Admin: 03/20/22 10:03 Dose: 60 mg Documented By: DAVID Metoprolol Succinate (Metoprolol Succinate Er 50 Mg Tab.Er.24h) 50 mg PO TID [facility]; Protocol Last Admin: 03/20/22 15:28 Dose: 50 mg Documented By: ANSON Morphine Sulfate (Morphine Sulfate 2 Mg/Ml Cartridge) 2 mg IVPUSH Q3H PRN; Protocol PRN Reason: Dyspnea Last Admin: 03/18/22 03:43 Dose: 2 mg Documented By: CASTILYaron Multivitamins/Vitamin C (Multivitamin Tablet) 1 tab PO DAILY [facility] Last Admin: 03/20/22 10:01 Dose: 1 tab Documented By: DAVID Nicotine (Nicotine 14 Mg Patch.Td24) 14 mg TRANSDERMA DAILY [facility] Last Admin: 03/20/22 10:02 Dose: 14 mg Documented By: DAVID Non-Formulary Medication (Febuxostat) 40 mg PO Q2D [facility] Ondansetron HCl (Ondansetron Hcl 4 Mg/2 Ml Vial) 4 mg IVPUSH Q8H PRN PRN Reason: Nausea and Vomiting Pharmacy Consult (Consult Rx Perform Med Rec) 1 each MISCELLANE ONCE PRN PRN Reason: Consult order Potassium Chloride (Potassium Chloride Er 20 Meq Tab.Er.Prt) 20 meq PO DAILY [facility] Last Admin: 03/20/22 10:01 Dose: 20 meq Documented By: DAVID Senna (Sennosides 8.6 Mg Tablet) 17.2 mg PO BEDTIME PRN PRN Reason: Constipation Sodium Chloride (0.9 % Sodium Chloride Flush 3 Ml Syringe) 3 ml IVFLUSH QSHIFT [facility] Last Admin: 03/20/22 15:29 Dose: 3 ml Documented By: ANSON Valsartan (Valsartan 40 Mg Tablet) 40 mg PO DAILY [facility]; Protocol Labs CBC & Chem 7: 03/17/22 11:09 03/20/22 06:36 Labs: Laboratory Results - last 24 hr 03/20/22 03/20/22 03/20/22 06:36 06:36 06:36 PT 39.8 H INR 3.3 H D VBG pH VBG pCO2 VBG pO2 VBG HCO3 VBG O2 Saturation VBG Base Excess Anion Gap 13 Estim Creat Clear Calc 52.4 Estimated GFR > 60 Random Glucose 136 H Calcium 8.4 B-Natriuretic Peptide 702 H 03/20/22 12:45 PT INR VBG pH 7.38 VBG pCO2 58 VBG pO2 41 VBG HCO3 35 H VBG O2 Saturation 63.0 VBG Base Excess 8.4 Anion Gap Estim Creat Clear Calc Estimated GFR Random Glucose Calcium B-Natriuretic Peptide Microbiology Microbiology Results: Microbiology 03/17/22 11:18 Blood Culture - Preliminary Blood - Venous No growth after 48 hours. 03/17/22 11:09 Blood Culture - Preliminary Blood - Venous No growth after 48 hours. 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 #Acute hypoxemic respiratory failure-secondary to COPD and CHF exacerbation -non oxygen dependent at home -Subjectively improvng but still requiring 2L supplemental O2 via NC -Continue supplemental O2 to maintain oximetry 90-92%. Continue morphine prn for increased WOB -Evaluated by cardiology- not felt to be in profound heart failure currently. Recommending further pulmonary evaluation -treat CHF and COPD as below -admit to telemetry #AFib with RVR -HR 80-100's range -BP soft. Hold fluids per cardiology -Continue metoprolol and PO dig. Add dig .125mg q6h x 2 -INR remains supratherapeutic. Follow INR -Resume warafarin once INR therapeutic. episode of nsvt -18 beat , Asymptomatic, electrolytes seems fine. #HF recovered EF/Cardiomyopathy -Evaluated by cards. Not felt to be in profound HF. Elevated BNP thought to be secondary to hypoxic respiratory failure or RV strain. -Hold on IV diuretic. Continue home PO diuretics -BNP trending down. Continue to follow BNP -strict I&O -daily weights -cardiac diet -admit to telemetry -follow BMP and BNP cardio seen patient-advised adjusted lasix 60mg daily #Left sided pleural effusion -Improved since last CXR -Not felt to be in profound CHF -Cards recommending pulm eval for further evaluation of pleural effusion and hypoxia- ?mucus plugging, ?malignancy -Continue diuresis as above and if no improvement consider thoracentesis. Appreciate pulm input # acute COPD exacerbation- mild tachycardia, likely secondary to increased work of breathing/dyspnea. -Respiratory panel neg -Continue with supplemental O2 as above -CXR without evidence of focal consolidation -Continue azithromycin 500mg daily. D2 -Duonebs q4h while awake -albuterol neb q2h prn -IV solumedrol 60mg bid -Patient tachypnea scondary to COPD exacerbation, tachycardia secondary to albuterol use and increased work of breathing. Will check rectal temp to r/o fever. No sepsis/severe sepsis suspected #elevated trop -Initial 44, repeat 16.2 echo: ?1. Mildly reduced LV ejection fraction with LVEF of 45-50% ? ? 2. Severe left atrial enlargement and moderate right atrial? ? ? enlargement? 3. Mild mitral regurgitation ? 4. Normal RV systolic pressure ? 5. Trivial pericardial effusion? ? ? -EKG without JONATAN, denies cp elevated trops likely demand cardiology followin #Chronic macrocytic Anemia -H/H above baseline -on iron and folic acid supplementation at home #Tobacco dependence -Smoking cessation advised -NRT #NSCLC -outpatient follow up #HLD -continue statin #CAD/PAD-no anginal chest pain -EKG any ST/T-wave abnormality -continue statin, ASA DVT prophylaxis-resume Coumadin once INR therapeutic.? INR currently supratherapeutic at 3.3 on going inpatient need-COPD exacerbation- needs IV steroids, nebs, oxygen support and respiratory monitoring Quality Stroke Does the patient have a stroke diagnosis?: No VTE Prior VTE?: No VTE Risk Level:: Medical - moderate - high VTE Device Contraindication: Treatment Not Indicated VTE Drug Contraindication: N/A - Med Ordered
[2022-03-20 20:39] LABS: Magnesium 2.2 mg/dL (1.6-2.6)
[2022-03-20] MEDS: guaiFENesin LA 600 MG TAB.ER.12H PO (22:04)
[2022-03-20] MEDS: Atorvastatin Calcium 40 MG TABLET PO (22:06)
[2022-03-21] VITALS (12 sets, daily range): BP systolic 127–139; BP diastolic 59–80; PULSE 62–98; RESP 16–20; TEMP 36.1–37; O2SAT 86–99
[2022-03-21] MEDS: traZODone HCL 50 MG TABLET PO (03:15)
[2022-03-21 07:17] LABS: INTERNATIONAL NORM RATIO 2.4 (0.9-1.1); Prothrombin Time 28.1 SEC (10.0-13.1)
[2022-03-21] MEDS: Albuterol/Iprat 2.5/0.5MG 3 ML AMPUL.NEB INHALE ×4 (09:01→20:08)
[2022-03-21] MEDS: Potassium Chloride ER 20 MEQ TAB.ER.PRT PO (10:09)
[2022-03-21] MEDS: Doxycycline Monohydrate 100 MG CAPSULE PO ×2 (10:09→21:56)
[2022-03-21] MEDS: Metoprolol Succinate ER 50 MG TAB.ER.24H PO ×3 (10:09→21:56)
[2022-03-21] MEDS: Multivitamin TABLET 1 TAB PO (10:09)
[2022-03-21] MEDS: guaiFENesin LA 600 MG TAB.ER.12H PO ×2 (10:09→21:56)
[2022-03-21] MEDS: Calcium + Vitamin D 250 MG TABLET PO (10:09)
[2022-03-21] MEDS: Nicotine 14 MG PATCH.TD24 TRANSDERMA (10:10)
[2022-03-21] MEDS: methylPREDNISolone Sod Succ 125 MG/2 ML VIAL 60 MG IVPUSH (10:11)
[2022-03-21] MEDS: 0.9 % Sodium Chloride Flush 3 ML SYRINGE IVFLUSH ×3 (10:12→21:57)
[2022-03-21 10:41] LABS: Venous Blood Gas Refer to POC result
[2022-03-21 10:42] LABS: VBG HCO3 36 mmol/L (22-26); VBG pCO2 63 mmHg; VBG pH 7.36 (7.32-7.43); VBG pO2 54 mmHg
[2022-03-21] MEDS: Folic Acid 1 MG TABLET PO (12:01)
[2022-03-21] MEDS: methylPREDNISolone Sod Succ 125 MG/2 ML VIAL 40 MG IVPUSH (12:02)
[2022-03-21] MEDS: Nystatin Oral Susp 500,000 UNIT/5 ML ORAL.SUSP 500000 UNIT PO ×3 (12:02→21:55)
--- NOTE | 2022-03-21 12:13 | HO.PM.IMPN ---
Subjective Subjective Date of Service: 03/21/22 Interval History: copd excerebation Review of Systems sob seems improving denies any chest pain or nausea or vomiting Physical Exam Vital Signs: Vital Signs: Last Vital Signs Temp 98.6 F 03/21/22 11:38 Pulse 62 03/21/22 11:38 Resp 20 03/21/22 11:38 BP 138/74 03/21/22 11:38 Pulse Ox 99 03/21/22 11:38 O2 Del Method 03/21/22 11:38 O2 Flow Rate 2 03/21/22 11:38 BMI result Body Mass Index 21.4 ? Appearance: Alert.? Oriented X3.?still sob cvs: rrr, [id number] , no murmur res: air entry seems diminshed , has wheezin abd: no rebound or guarding ,nt, bs present. ext pulses present , no cyanosis . neuro: axo3 , nonfocal. Objective Data Active Medications Acetaminophen (Acetaminophen 325 Mg Tablet) 650 mg PO Q6H PRN PRN Reason: Pain, Mild (Pain Scale 1-3) Albuterol/Ipratropium (Albuterol/Iprat 2.5/0.5mg 3 Ml Ampul.Neb) 3 ml INHALE RQ4H WHILE AWAKE [facility] Last Admin: 03/21/22 11:35 Dose: 3 ml Documented By: ROLF Albuterol/Ipratropium (Albuterol/Iprat 2.5/0.5mg 3 Ml Ampul.Neb) 3 ml INHALE RQ4H PRN PRN Reason: wheezing Last Admin: 03/20/22 06:27 Dose: 3 ml Documented By: PARDEEP Aspirin (Aspirin Enteric Coated 81 Mg Tablet.Dr) 81 mg PO DAILY@1500 [facility] Last Admin: 03/20/22 15:28 Dose: 81 mg Documented By: ANSON Atorvastatin Calcium (Atorvastatin Calcium 40 Mg Tablet) 40 mg PO BEDTIME [facility] Last Admin: 03/20/22 22:06 Dose: 40 mg Documented By: JEFFREY Azithromycin (Azithromycin 250 Mg Tablet) 250 mg PO Q24H [facility] Calcium Carbonate/Cholecalciferol (Calcium + Vitamin D 250 Mg Tablet) 250 mg PO DAILY [facility] Last Admin: 03/21/22 10:09 Dose: 250 mg Documented By: GAGANDEEP Digoxin (Digoxin 0.125 Mg Tablet) 0.125 mg PO SUMOWEFRSA@0900 [facility] Last Admin: 03/20/22 10:06 Dose: 0.125 mg Documented By: DAVID Ferrous Sulfate (Ferrous Sulfate 324 Mg Tablet.) 324 mg PO DAILY@1500 [facility] Last Admin: 03/20/22 15:28 Dose: 324 mg Documented By: ANSON Folic Acid (Folic Acid 1 Mg Tablet) 1 mg PO DAILY [facility] Last Admin: 03/21/22 12:01 Dose: 1 mg Documented By: GAGANDEEP Furosemide (Furosemide 40 Mg Tablet) 40 mg PO BID@0900,1700 [facility]; Protocol Last Admin: 03/20/22 15:28 Dose: 40 mg Documented By: ANSON Guaifenesin (Guaifenesin La 600 Mg Tab.Er.12h) 600 mg PO BID [facility] Last Admin: 03/21/22 10:09 Dose: 600 mg Documented By: GAGANDEEP Guaifenesin/Codeine Phosphate (Guaifen/Codeine Sf 200/20/10ml 10 Ml Liquid) 10 ml PO Q4H PRN PRN Reason: Cough Loratadine (Loratadine 10 Mg Tablet) 10 mg PO DAILY [facility] Lorazepam (Lorazepam 0.5 Mg Tablet) 0.25 mg PO Q6H PRN PRN Reason: Anxiety Methylprednisolone Sodium Succinate (Methylprednisolone Sod Succ 125 Mg/2 Ml Vial) 40 mg IVPUSH Q12H [facility] Last Admin: 03/21/22 12:02 Dose: 40 mg Documented By: GAGANDEEP Metoprolol Succinate (Metoprolol Succinate Er 50 Mg Tab.Er.24h) 50 mg PO TID [facility]; Protocol Last Admin: 03/21/22 10:09 Dose: 50 mg Documented By: GAGANDEEP Morphine Sulfate (Morphine Sulfate 2 Mg/Ml Cartridge) 2 mg IVPUSH Q3H PRN; Protocol PRN Reason: Dyspnea Last Admin: 03/18/22 03:43 Dose: 2 mg Documented By: THU Multivitamins/Vitamin C (Multivitamin Tablet) 1 tab PO DAILY [facility] Last Admin: 03/21/22 10:09 Dose: 1 tab Documented By: GAGANDEEP Nicotine (Nicotine 14 Mg Patch.Td24) 14 mg TRANSDERMA DAILY [facility] Last Admin: 03/21/22 10:10 Dose: 14 mg Documented By: GAGANDEEP Non-Formulary Medication (Febuxostat) 40 mg PO Q2D [facility] Nystatin (Nystatin Oral Susp 500,000 Unit/5 Ml Oral.Susp) 500,000 unit PO QID [facility]; Protocol Last Admin: 03/21/22 12:02 Dose: 500,000 unit Documented By: GAGANDEEP Ondansetron HCl (Ondansetron Hcl 4 Mg/2 Ml Vial) 4 mg IVPUSH Q8H PRN PRN Reason: Nausea and Vomiting Pharmacy Consult (Consult Rx Perform Med Rec) 1 each MISCELLANE ONCE PRN PRN Reason: Consult order Potassium Chloride (Potassium Chloride Er 20 Meq Tab.Er.Prt) 20 meq PO DAILY [facility] Last Admin: 03/21/22 10:09 Dose: 20 meq Documented By: GAGANDEEP Senna (Sennosides 8.6 Mg Tablet) 17.2 mg PO BEDTIME PRN PRN Reason: Constipation Sodium Chloride (0.9 % Sodium Chloride Flush 3 Ml Syringe) 3 ml IVFLUSH QSHIFT [facility] Last Admin: 03/21/22 10:12 Dose: 3 ml Documented By: GAGANDEEP Valsartan (Valsartan 40 Mg Tablet) 40 mg PO DAILY [facility]; Protocol Warfarin Sodium (Warfarin Sodium 1 Mg Tablet) 1 mg PO DAILY@1800 [facility] Labs CBC & Chem 7: 03/17/22 11:09 03/20/22 06:36 Labs: Laboratory Results - last 24 hr 03/20/22 03/20/22 03/21/22 12:45 19:55 05:49 PT 28.1 H INR 2.4 H VBG pH 7.38 VBG pCO2 58 VBG pO2 41 VBG HCO3 35 H VBG O2 Saturation 63.0 VBG Base Excess 8.4 Magnesium 2.2 03/21/22 10:37 PT INR VBG pH 7.36 VBG pCO2 63 VBG pO2 54 VBG HCO3 36 H VBG O2 Saturation 80.0 VBG Base Excess 9.0 Magnesium Assessment and Plan (1) COPD exacerbation: Status: Acute (2) Atrial fibrillation with rapid ventricular response: Status: Acute (3) Acute exacerbation of chronic obstructive pulmonary disease: Status: Acute (4) Acute respiratory failure with hypoxia: Status: Acute (5) NSVT (nonsustained ventricular tachycardia): Status: Acute Plan 82 year old male with history of HF with recovered EF, coronary artery disease s/p cardiac cath 02/2016, PAD s/p bilateral iliac angioplasty, recurrent non-small cell lung cancer of the right lung s/p wedge resection, chronic atrial fibrillation anticoagulated with Coumadin, hyperlipidemia, hypertension, COPD, ongoing smoker among others to be admitted for COPD and CHF exacerbation with acute hypoxemic respiratory failure. #Acute hypoxemic respiratory failure-secondary to COPD and CHF exacerbation -non oxygen dependent at home -Continue supplemental O2 to maintain oximetry 90-92%. Continue morphine prn for increased WOB -Evaluated by cardiology- not felt to be in profound heart failure currently. Recommending further pulmonary evaluation -treat CHF and COPD as below -admit to telemetry #AFib with RVR -HR 80-100's range -BP soft. Hold fluids per cardiology -Continue metoprolol and PO dig. Add dig .125mg q6h x 2 -INR remains supratherapeutic. Follow INR -Resume warafarin once INR therapeutic. episode of nsvt -18 beat , Asymptomatic, electrolytes seems fine. #HF recovered EF/Cardiomyopathy -Evaluated by cards. Not felt to be in profound HF. Elevated BNP thought to be secondary to hypoxic respiratory failure or RV strain. -Hold on IV diuretic. Continue home PO diuretics -BNP trending down. Continue to follow BNP -strict I&O -daily weights -cardiac diet -admit to telemetry -follow BMP and BNP cardio seen patient-advised adjusted lasix 60mg daily #Left sided pleural effusion -Improved since last CXR -Not felt to be in profound CHF -Cards recommending pulm eval for further evaluation of pleural effusion and hypoxia- ?mucus plugging, ?malignancy -Continue diuresis as above and if no improvement consider thoracentesis. Appreciate pulm input # acute COPD exacerbation- mild tachycardia, likely secondary to increased work of breathing/dyspnea. -Respiratory panel neg sob improving taper supplemental O2 as above -CXR without evidence of focal consolidation on doxycycline because azithromycin can cause elevated INR with Coumadin traction. abg reviewed and d/w pulm -continue-Duonebs q4h while awake,albuterol neb q2h prn, Change IV Solu-MedrolIV solumedrol 40 mg bid oral thrush -add nystain swish /swallow #elevated trop -Initial 44, repeat 16.2 echo: ?1. Mildly reduced LV ejection fraction with LVEF of 45-50% ? ? 2. Severe left atrial enlargement and moderate right atrial? ? ? enlargement? 3. Mild mitral regurgitation ? 4. Normal RV systolic pressure ? 5. Trivial pericardial effusion? ? ? -EKG without JONATAN, denies cp elevated trops likely demand cardiology followin #Chronic macrocytic Anemia -H/H above baseline -on iron and folic acid supplementation at home #Tobacco dependence -Smoking cessation advised -NRT #NSCLC -outpatient follow up #HLD -continue statin #CAD/PAD-no anginal chest pain -EKG any ST/T-wave abnormality -continue statin, ASA DVT prophylaxis-resume Coumadin once INR therapeutic.? INR currently supratherapeutic at 2.4-started warfrain on going inpatient need-COPD exacerbation- needs IV steroids, nebs, oxygen support and respiratory monitoring Quality Stroke Does the patient have a stroke diagnosis?: No VTE Prior VTE?: No VTE Risk Level:: Medical - moderate - high VTE Device Contraindication: Treatment Not Indicated VTE Drug Contraindication: N/A - Med Ordered
[2022-03-21] MEDS: Azithromycin 250 MG TABLET PO (12:54)
[2022-03-21] MEDS: Ferrous Sulfate 324 MG TABLET.DR PO (16:10)
[2022-03-21] MEDS: Aspirin Enteric Coated 81 MG TABLET.DR PO (16:10)
[2022-03-21] MEDS: Warfarin Sodium 1 MG TABLET PO (18:30)
[2022-03-21] MEDS: Atorvastatin Calcium 40 MG TABLET PO (21:56)
[2022-03-22] MEDS: methylPREDNISolone Sod Succ 125 MG/2 ML VIAL 40 MG IVPUSH ×2 (00:46→11:37)
[2022-03-22] MEDS: Melatonin 3 MG TABLET 6 MG PO (02:20)
[2022-03-22 03:36] VITALS: BP 113/74; PULSE 90; RESP 16; TEMP 36.1; O2SAT 94
[2022-03-22 06:40] LABS: INTERNATIONAL NORM RATIO 1.9 (0.9-1.1); Prothrombin Time 22.7 SEC (10.0-13.1)
[2022-03-22 07:43] VITALS: BP 130/75; PULSE 84; RESP 18; TEMP 36.1; O2SAT 93
[2022-03-22] MEDS: Calcium + Vitamin D 250 MG TABLET PO (08:38)
[2022-03-22] MEDS: guaiFENesin LA 600 MG TAB.ER.12H PO (08:38)
[2022-03-22] MEDS: Nystatin Oral Susp 500,000 UNIT/5 ML ORAL.SUSP 500000 UNIT PO ×2 (08:39→14:56)
[2022-03-22] MEDS: Folic Acid 1 MG TABLET PO (08:39)
[2022-03-22] MEDS: Loratadine 10 MG TABLET PO (08:39)
[2022-03-22] MEDS: Metoprolol Succinate ER 50 MG TAB.ER.24H PO ×2 (08:39→14:56)
[2022-03-22] MEDS: Multivitamin TABLET 1 TAB PO (08:39)
[2022-03-22] MEDS: Doxycycline Monohydrate 100 MG CAPSULE PO (08:39)
[2022-03-22] MEDS: Nicotine 14 MG PATCH.TD24 TRANSDERMA (08:39)
[2022-03-22] MEDS: Potassium Chloride ER 20 MEQ TAB.ER.PRT PO (08:39)
[2022-03-22] MEDS: 0.9 % Sodium Chloride Flush 3 ML SYRINGE IVFLUSH ×2 (08:40→08:57)
[2022-03-22] MEDS: Digoxin 0.125 MG TABLET PO (08:57)
[2022-03-22] MEDS: Albuterol/Iprat 2.5/0.5MG 3 ML AMPUL.NEB INHALE ×2 (11:34→14:42)
[2022-03-22 11:36] VITALS: PULSE 76; RESP 16; O2SAT 99
[2022-03-22 12:00] VITALS: BP 131/60; PULSE 60; RESP 20; TEMP 35.9; O2SAT 99
--- NOTE | 2022-03-22 12:47 | MHC.CLN ---
F/U DIET=CARDIAC. ENSURE PUDDING BID PROVIDES ADDITIONAL 340 KCALS, 8 G PROTEIN. STAGE II WOUND TO BUTTOCKS. SUPPLEMENT TO PROMOTE WOUND HEALING. PO INTAKE USUALLY 75-100%. FOLLOWING FOR INTAKE AND SKIN INTEGRITY.
--- NOTE | 2022-03-22 13:29 | MHC.CM.PN ---
PATIENT ACCEPTS [facility] (PRIVATE ROOM) ON LTC UNIT DURING HIS REHAB STAY. [facility] TO TRANSPORT FOR 4 PM. RN AND UNIT AWARE. 03/21 IMM IN CHART
--- NOTE | 2022-03-22 13:52 | P.DS_ITS ---
DS: Providers Provider Date of Service: 03/22/22 Date of admission: 03/17/22 13:59 Primary care physician: Ben Durham MD Consults: 03/18/22 08:54 Consult to Cardiology Routine Consulting Provider: Milo Solano Reason for consultation: CHF exacerbation, large pleural effusion 03/18/22 14:35 Consult to Pulmonology Routine Consulting Provider: Osvaldo Aguilar Reason for consultation: acute hypoxia, pleural effusion, hx lung cancer DS: Diagnosis Discharge Diagnosis (1) COPD exacerbation: Status: Acute (2) Atrial fibrillation with rapid ventricular response: Status: Acute (3) Acute exacerbation of chronic obstructive pulmonary disease: Status: Acute (4) Acute respiratory failure with hypoxia: Status: Acute (5) NSVT (nonsustained ventricular tachycardia): Status: Acute (6) Supratherapeutic INR: Status: Acute (7) Lung cancer: Status: Acute (8) Acute exacerbation of CHF (congestive heart failure): Status: Acute (9) Oral thrush: Status: Acute (10) Prerenal azotemia: Status: Acute DS: Summary Hospital Course Hospital Course: 82 year old male with history of HF with recovered EF, coronary artery disease s/p cardiac cath 02/2016, PAD s/p bilateral iliac angioplasty, 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 Reports symptoms are worsened by exertion and are worse when lying down at night.? Denies fevers, chills, sore throat, runny nose, nasal congestion, nausea, vomiting, abdominal pain, myalgia, headache, diarrhea, recent sick contacts, or chest pain.? Per EMS, patient was hypoxic at home at 84% and placed on CPAP for transfer where he was then placed on OxyMask maintaining oxygen saturation of 100% though he still feels short of breath.? Patient tachypneic to 40, afebrile, heart rate 100. COVID-19 negative. No leukocytosis.? Stable macrocytic anemia with H/H 12.7/40.0%, MCV 106.7.? Platelets 155.? INR 4.9, PTT 60.1.? Creatinine 1.10, BUN 34, CO2 36.? BNP 1021 (baseline around 490), initiale Trop-I 44, repeat pending. EKG shows AFib, rate 100, no ST/twave abnormaltiy. CXR showing improvement in left pleural effusion with question of increase in soft tissue density in region of previous surgery compared to prior CXR.? Emphysematous changes present. Last echo in 06/2021 showing normal systolic function with EF 55-60%.? Patient to be admitted for acute COPD exacerbation w ith acute CHF exacerbation. Hopsital course. patient admitted to the hospital because of acute hypoxemic respiratory failure secondary to COPD, CHF exacerbation- patient was started on nebs, steroids, antibiotics and for CHF also received IV diuresis,intial elevated Troponin possible related to CHF/ AFib with RVR.: Patient subsequently seems to be improving- switched to p.o. steroid, complete course of doxycyline for copd and Lasix 60 mg daily upon discharge.patient is milf prerenal-likley due to steriods / iv diuresis : hold valsartan for 2-3 days , Repeat BMP next week and start back valsartan as renal function allows. Patient has oral thrush related to steroid use- continue nystatin for 6 days. In addition patient has chronic AFib- initially also had AFib with RVR- received the metoprolol and IV digoxin: heart rate seems to be improved to baseline. hr rate is stable around 80's with toprolol 50 md tid -we will continue that for now , if needed please adjust metoprolol to 100 mg po bid outpatient. His INR was supratherapeutic which improved to near therapeutic range- warfarin adjusted to 1.5 mg daily, monitor INR in rehab. Patient chest CT shows- increases right lower mass, patient has history of lung cancer- seen by pulmonary-Patient to follow-up with his treating oncologists after discharge . Above management discussed the patient in detail length he understand and in agreement with the above plan, time spent 50 minute. Time Spent with Patient Time attestation: Total time spent providing and/or coordinating discharge services: Discharge coordination time: Greater than 30 minutes Quality: Safe Use of Opioids Does Pt have an Active Cancer Diagnosis on the Problem List?: No Quality: Stroke Does the patient have a stroke diagnosis?: No Physical Exam Vital Signs: Vital Signs: Last Vital Signs Temp 96.7 F L 03/22/22 12:00 Pulse 60 03/22/22 12:00 Resp 20 03/22/22 12:00 BP 131/60 03/22/22 12:00 Pulse Ox 99 03/22/22 12:00 O2 Del Method 03/22/22 12:00 O2 Flow Rate 2 03/22/22 12:00 BMI result Body Mass Index 21.4 ?? Appearance: Alert.? Oriented X3.?still sob cvs: rrr, [id number] , no murmur res: air entry fair , no rales or wheezing abd: no rebound or guarding ,nt, bs present. ext pulses present , no cyanosis . neuro: axo3 , nonfocal. DS: Data Data Completed and Pending Completed studies during hospitalization [Text1]: Procedures Excision of Duodenum, Via Natural or Artificial Opening Endoscopic, Diagnostic (06/20/21) Excision of Stomach, Pylorus, Via Natural or Artificial Opening Endoscopic, Diagnostic (06/20/21) Inspection of Lower Intestinal Tract, Via Natural or Artificial Opening Endoscopic (07/27/21) Inspection of Upper Intestinal Tract, Via Natural or Artificial Opening Endoscopic (07/27/21) Transfusion of Nonautologous Fresh Plasma into Peripheral Vein, Percutaneous Approach (07/27/21) Transfusion of Nonautologous Red Blood Cells into Peripheral Vein, Percutaneous Approach (07/27/21) Labs on day of discharge: Laboratory Results - last 24 hr 03/22/22 05:07 PT 22.7 H INR 1.[address] scan - chest: Radiologist's impression: ITS Impressions Chest X-Ray 03/17/22 11:30 IMPRESSION: Improved left pleural effusion. Question increase in soft tissue density in region of previous surgery compared to study of October 07, 2021. Emphysematous change. Question patchy regions of disease overlying the right lung versus probable end of ribs. Chest X-Ray 03/18/22 09:36 IMPRESSION: Stable enlargement of the cardiac silhouette. Atelectasis/consolidation at the left lung base and small left pleural effusion. Chest CT 03/18/22 17:28 IMPRESSION: 1. Increase in size of right upper lobe mass. 2. Unchanged left pleural effusion. 3. Other incidental findings as described above including severe COPD and extensive coronary calcification. Fleischner guidelines were followed. Additional Comments Additional comments: Conclusions: - 1. Mildly reduced LV ejection fraction with LVEF of 45-50% ? ? 2. Severe left atrial enlargement and moderate right atrial? ? ? enlargement? 3. Mild mitral regurgitation ? 4. Normal RV systolic pressure ? 5. Trivial pericardial effusion? Discharge Plan Discharge Anticipated Discharge Date/Time: 03/22/22 13:33 Patient Disposition: [facility] Discharge Diagnosis: COPD exacerbation, history of lung mass,afib with rvr. Referrals: [facility] [Outside] - 1 Week Ben Durham MD [Primary Care Provider] - 1 Week Discharge Medications: New warfarin [Jantoven] 1 mg Tablet 1.5 mg PO DAILY@1800 Qty: 30 0RF nystatin 100,000 unit/mL Suspension 500,000 unit PO QID Qty: 15 0RF Protocol: Apply to: Apply to: swish and swallow doxycycline monohydrate 100 mg Capsule 100 mg PO BID Qty: 10 0RF loratadine 10 mg Tablet 10 mg PO DAILY Qty: 7 0RF Continued folic acid 1 mg tablet 1 mg PO DAILY Qty: 90 0RF potassium chloride 20 mEq tablet,ER particles/crystals 20 meq PO DAILY Qty: 30 3RF multivitamin Tablet 1 tab PO DAILY nicotine 14 mg/24 hr Patch 24 Hour 1 patch TRANSDERMAL DAILY@1500 calcium carbonate-vitamin D3 600 mg(1,500mg) -200 unit Tablet 1 tab PO DAILY albuterol sulfate [Ventolin HFA] 90 mcg/actuation HFA aerosol inhaler 2 puff inhalation Q6H PRN (Reason: shortness of breath or wheezing) Qty: 6.7 0RF atorvastatin 40 mg tablet 40 mg PO BEDTIME ferrous sulfate 325 mg (65 mg iron) Tablet 325 mg PO DAILY@1500 warfarin 1 mg Tablet 2 mg PO SUTUTHSA@1800 digoxin 125 mcg (0.125 mg) tablet 125 mcg PO SUMOWEFRSA@0900 PreserVision AREDS-2 250-90-40-1 mg capsule 1 tab PO DAILY (DME) HINGED KNEE BRACE (left) See Rx Instructions .Route .MEDSUPPLY Qty: 1 0RF Rx Instructions: As directed aspirin [Adult Low Dose Aspirin] 81 mg tablet,delayed release (DR/EC) 81 mg PO DAILY@1500 febuxostat 40 mg tablet 40 mg PO Q2D metoprolol succinate 50 mg tablet extended release 24 hr 50 mg PO TID Qty: 90 3RF Protocol: Hold for SBP/HR < HOLD for SBP < : 90 HOLD for HR < : 60 Changed furosemide 40 mg tablet 60 mg PO DAILY Qty: 14 0RF Held valsartan 40 mg tablet 40 mg PO DAILY Hold Instructions: Resume on 03/25/22. Discontinued warfarin 1 mg tablet 1 mg PO SUTUWETHFR@1800 Protocol: Dose Management Condition: Friday (Week One) Dose/Route: 2 mg Instruction: 2 x 1 mg tablets Condition: Friday Dose/Route: 1 mg Instruction: 1 x 1 mg tablet Condition: Friday Dose/Route: 2 mg Instruction: 2 x 1 mg tablets Condition: Friday Dose/Route: 1 mg Instruction: 1 x 1 mg tablet Condition: Dose/Route: 2 mg Instruction: 2 x 1 mg tablets Condition: Friday Dose/Route: 1 mg Instruction: 1 x 1 mg tablet Condition: Friday Dose/Route: 2 mg Instruction: 2 x 1 mg tablets Condition: Friday (Week Two) Dose/Route: 2 mg Instruction: 2 x 1 mg tablets Condition: Friday Dose/Route: 1 mg Instruction: 1 x 1 mg tablet Condition: Friday Dose/Route: 2 mg Instruction: 2 x 1 mg tablets Condition: Friday Dose/Route: 1 mg Instruction: 1 x 1 mg tablet Condition: Dose/Route: 2 mg Instruction: 2 x 1 mg tablets Condition: Friday Dose/Route: 1 mg Instruction: 1 x 1 mg tablet Condition: Friday Dose/Route: 2 mg Instruction: 2 x 1 mg tablets Protocol Text: Adjustment Start Date: Friday03/12/22 INR Value: 3.3 INR Date: 03/12/22 Recheck Date: 03/19/22 Additional Instructions: INR is above range and has been trending above range decrease weekly dose to 1mg x 3 days (start Friday) and 2mg x 4 days have a dark leafy green today then balance greens and reds in diet warfarin [Maytoven] 1 mg tablet 2 mg PO MOSA@1800 Protocol: Dose Management Condition: Friday (Week One) Dose/Route: 2 mg Instruction: 2 x 1 mg tablets Condition: Friday Dose/Route: 1 mg Instruction: 1 x 1 mg tablet Condition: Friday Dose/Route: 2 mg Instruction: 2 x 1 mg tablets Condition: Friday Dose/Route: 1 mg Instruction: 1 x 1 mg tablet Condition: Dose/Route: 2 mg Instruction: 2 x 1 mg tablets Condition: Friday Dose/Route: 1 mg Instruction: 1 x 1 mg tablet Condition: Friday Dose/Route: 2 mg Instruction: 2 x 1 mg tablets Condition: Friday (Week Two) Dose/Route: 2 mg Instruction: 2 x 1 mg tablets Condition: Friday Dose/Route: 1 mg Instruction: 1 x 1 mg tablet Condition: Friday Dose/Route: 2 mg Instruction: 2 x 1 mg tablets Condition: Friday Dose/Route: 1 mg Instruction: 1 x 1 mg tablet Condition: Dose/Route: 2 mg Instruction: 2 x 1 mg tablets Condition: Friday Dose/Route: 1 mg Instruction: 1 x 1 mg tablet Condition: Friday Dose/Route: 2 mg Instruction: 2 x 1 mg tablets Protocol Text: Adjustment Start Date: Friday03/12/22 INR Value: 3.3 INR Date: 03/12/22 Recheck Date: 03/19/22 Additional Instructions: INR is above range and has been trending above range decrease weekly dose to 1mg x 3 days (start Friday) and 2mg x 4 days have a dark leafy green today then balance greens and reds in diet warfarin 1 mg Tablet 1 mg PO MOWEFR@1800 Discharge Orders: Discharge Order (Routine); Ordered 03/22/22 Ordered By: Alicia Koehler Diet: Advance to usual diet Activity on Discharge: As tolerated Stand Alone Forms: Patient Portal Discharge page Care Plan Goals: patient admitted to the hospital because of acute hypoxemic respiratory failure secondary to COPD,, CHF exacerbation- patient was started on nebs, steroids, antibiotics and for CHF also received IV diuresis: Patient subsequently seems to be improving- switched to p.o. steroid and Lasix upon discharge. complete course of antibiotic. In addition patient has chronic AFib- initially also had AFib with RVR- received the metoprolol and IV digoxin: heart rate seems to be improved to baseline. His INR was supratherapeutic which improved to near therapeutic range- warfarin adjusted to 1.5 mg daily, monitor INR in rehab. Patient chest CT shows- increases right lower mass, patient has history of lung cancer- seen by pulmonary-Patient to follow-up with his treating oncologists after discharge . Health Concerns: as above. Plan of Treatment: As above. Assessment: as above.
[2022-03-22 14:26] LABS: COVID-19 Test Negative (Negative); IDNOW Serial# 9DB6401D
[2022-03-22 14:43] VITALS: PULSE 77; RESP 16; O2SAT 98
[2022-03-22] MEDS: Ferrous Sulfate 324 MG TABLET.DR PO (14:56)
[2022-03-22] MEDS: Aspirin Enteric Coated 81 MG TABLET.DR PO (14:56)
[2022-03-22 15:36] VITALS: BP 138/74; PULSE 97; RESP 19; TEMP 36.8; O2SAT 94
== END 2022-03-22 18:27 | disposition skilled nursing facility (03) | DRG 190 ==
LOC: HO.ED 13:36 → HO.EDOVER 14:32 → HO.S3 22:37
PROVIDERS: Admitting Provider Physician Assistant; Emergency Provider Emergency Medicine; PCP Internal Medicine; Visit Provider Internal Medicine
DX: J44.1 Chronic obstructive pulmonary disease with (acute) exacerbation (principal); I50.33 Acute on chronic diastolic (congestive) heart failure; J96.01 Acute respiratory failure with hypoxia; C34.01 Malignant neoplasm of right main bronchus; I48.20 Chronic atrial fibrillation, unspecified; I47.1 Supraventricular tachycardia; I42.9 Cardiomyopathy, unspecified; B37.0 Candidal stomatitis; I11.0 Hypertensive heart disease with heart failure; I25.10 Atherosclerotic heart disease of native coronary artery without angina pectoris; R79.1 Abnormal coagulation profile; E78.5 Hyperlipidemia, unspecified; D63.0 Anemia in neoplastic disease; D53.9 Nutritional anemia, unspecified; I73.9 Peripheral vascular disease, unspecified; I34.0 Nonrheumatic mitral (valve) insufficiency; F17.210 Nicotine dependence, cigarettes, uncomplicated; Z71.6 Tobacco abuse counseling; Z20.822 Contact with and (suspected) exposure to COVID-19; Z90.2 Acquired absence of lung [part of]; Z79.01 Long term (current) use of anticoagulants; Z79.82 Long term (current) use of aspirin; Z79.899 Other long term (current) drug therapy
CPT/HCPCS: 36415; 71045; 71250; 80048; 80076; 81001; 82803; 83605; 83690; 83735; 83880; 84484; 85025; 85610; 85730; 87040; 87633; 87635; 93005; 93306; 94640; 97110; 97116; 97161; 97530; 99285; J0456; J0696; J1160; J1940; J2270; J2930; J3475

== ENCOUNTER 2022-03-19 11:12 | Outpatient (REF) | payer MEDICARE, SELFPAY | END 2022-03-19 11:13 | disposition home or self-care (01) | LOC: HO.LAB 11:12 | PROVIDERS: Visit Provider Internal Medicine | DX: Z13.89 Encounter for screening for other disorder (principal) ==

== ENCOUNTER → 2022-04-15 14:02 | Outpatient (BNVA) | payer MEDICARE, SELFPAY | PROVIDERS: PCP Internal Medicine; Visit Provider Internal Medicine Gastroenterology | DX: Z13.89 Encounter for screening for other disorder (principal) | CPT/HCPCS: Q3014 ==

== ENCOUNTER → 2022-04-23 15:52 | Outpatient (BNVA) | payer MEDICARE, SELFPAY | PROVIDERS: PCP Internal Medicine; Visit Provider Internal Medicine | DX: Z79.01 Long term (current) use of anticoagulants (principal) ==

== ENCOUNTER → 2022-04-30 11:49 | Outpatient (BNVA) | payer MEDICARE, SELFPAY | PROVIDERS: PCP Internal Medicine; Visit Provider Internal Medicine | DX: Z79.01 Long term (current) use of anticoagulants (principal) ==

== ENCOUNTER → 2022-05-07 09:41 | Outpatient (BNVA) | payer MEDICARE, SELFPAY | PROVIDERS: PCP Internal Medicine; Visit Provider Internal Medicine | DX: Z79.01 Long term (current) use of anticoagulants (principal) ==

== ENCOUNTER 2022-05-10 09:54 | Outpatient (REF) | payer MEDICARE, SELFPAY ==
[2022-05-10 11:20] LABS: MANUAL DIFF FLAG NO
[2022-05-10 11:27] LABS: Basophils Percent Auto 0.4 % (0-2); Hematocrit 36.8 % (42.0-52.0); Hemoglobin 12.1 g/dl (14.0-18.0); Imm Gran Abs Auto 0.02 X10*3/uL (0.00-0.03); Imm Gran Pct Auto 0.4 % (0.0-0.4); Lymphocytes Absolute Auto 0.7 X10*3/uL (1.2-4.9); Lymphocytes Percent Auto 13.2 % (20-40); Mean Corpuscular HGB Conc 32.9 g/dl (31.0-36.0); Mean Corpuscular Hemoglobin 33.3 pg (27.0-33.0); Mean Corpuscular Volume 101.4 fL (80.0-98.0); Mean Platelet Volume 11.3 fL (9.4-12.4); Monocytes Absolute Auto 0.3 X10*3/uL (0.1-1.2); Monocytes Percent Auto 6.1 % (2-11); Neutrophils Absolute Auto 4.1 x10*3/uL (2.0-8.3); Neutrophils Percent Auto 79.9 % (45-73); Platelet Count 235 X10*3/uL (160-400); Red Blood Count 3.63 X10*6/uL (4.60-5.80); Red Cell Distribution Width 14.8 % (11.0-16.0); White Blood Count 5.1 X10*3/uL (4.8-10.8)
[2022-05-10 11:28] LABS: Appearance Urine Clear; Color Urine Yellow; Glucose Urine UA Negative (Negative); Leukocyte Esterase Urine Negative (Negative); Nitrite Urine Negative (Negative); Urine Blood Negative (Negative); Urine Ketones Negative (Negative); Urine Protein Negative (Neg-Trace)
[2022-05-10 12:02] LABS: B Type Natriuretic Peptide 414 pg/mL (<100)
[2022-05-10 12:16] LABS: Digoxin 1.1 ng/mL (0.8-2.0)
[2022-05-10 12:19] LABS: Alanine Aminotransferase 17 U/L (0-40); Albumin Level 3.7 g/dL (3.5-5.0); Alkaline Phosphatase 82 U/L (39-117); Anion Gap 15 (12-20); Aspartate Amino Transferase 23 U/L (5-37); Bilirubin Total 0.7 mg/dL (0.0-1.0); Blood Urea Nitrogen 46 mg/dL (9-16); Calcium 9.5 mg/dL (8.4-10.2); Carbon Dioxide 32 mmol/L (22-29); Chloride 103 mmol/L (96-108); Cholesterol 112 mg/dL; Estimated Glomerular Filt Rate 57; Glucose Fasting 132 mg/dL (60-99); HDL Cholesterol 46 mg/dL; LDL Cholesterol Calculated 54 mg/dl; Potassium 4.5 mmol/L (3.3-5.1); Sodium 145 mmol/L (135-145); Total Protein 6.3 g/dL (6.5-8.0); Triglycerides 62 mg/dL; Uric Acid 7.4 mg/dL (3.4-7.0)
[2022-05-10 12:37] LABS: Vitamin D 25-OH Total 30.4 ng/mL (>30)
== END 2022-05-10 09:55 | disposition home or self-care (01) ==
LOC: HO.HMGCLDS 09:54
PROVIDERS: PCP Internal Medicine; Visit Provider Internal Medicine
DX: I11.0 Hypertensive heart disease with heart failure (principal); I50.20 Unspecified systolic (congestive) heart failure; M10.9 Gout, unspecified; E55.9 Vitamin D deficiency, unspecified; E78.00 Pure hypercholesterolemia, unspecified
CPT/HCPCS: 36415; 80053; 80061; 80162; 81003; 82306; 83880; 84550; 85025

== ENCOUNTER → 2022-05-14 09:22 | Outpatient (BNVA) | payer MEDICARE, SELFPAY | PROVIDERS: PCP Internal Medicine; Visit Provider Internal Medicine | DX: Z79.01 Long term (current) use of anticoagulants (principal) ==

== ENCOUNTER → 2022-05-21 11:16 | Outpatient (BNVA) | payer MEDICARE, SELFPAY | PROVIDERS: PCP Internal Medicine; Visit Provider Internal Medicine | DX: Z79.01 Long term (current) use of anticoagulants (principal) ==

== ENCOUNTER → 2022-05-24 09:29 | Outpatient (BNVA) | payer MEDICARE, SELFPAY | PROVIDERS: PCP Internal Medicine; Visit Provider Internal Medicine | DX: Z79.01 Long term (current) use of anticoagulants (principal) ==

== ENCOUNTER → 2022-05-28 10:00 | Outpatient (BNVA) | payer MEDICARE, SELFPAY | PROVIDERS: PCP Internal Medicine; Visit Provider Internal Medicine | DX: Z79.01 Long term (current) use of anticoagulants (principal) ==

== ENCOUNTER 2022-06-03 12:11 | Outpatient (REF) | payer MEDICARE, SELFPAY | END 2022-06-03 12:12 | disposition home or self-care (01) | LOC: HO.LAB 12:11 | PROVIDERS: Visit Provider Internal Medicine | DX: Z13.89 Encounter for screening for other disorder (principal) ==

== ENCOUNTER 2022-06-10 05:53 | Outpatient (REF) | payer MEDICARE, SELFPAY ==
[2022-06-10 11:08] LABS: INTERNATIONAL NORM RATIO 1.8 (0.9-1.1); Prothrombin Time 21.1 SEC (10.0-13.1)
[2022-06-10 12:22] LABS: Anion Gap 13 (12-20); Blood Urea Nitrogen 24 mg/dL (9-16); Calcium 8.8 mg/dL (8.4-10.2); Carbon Dioxide 32 mmol/L (22-29); Chloride 105 mmol/L (96-108); Estimated Glomerular Filt Rate > 60; Glucose Random 161 mg/dL (60-115); Potassium 4.3 mmol/L (3.3-5.1); Sodium 146 mmol/L (135-145)
[2022-06-10 12:31] LABS: Digoxin 0.9 ng/mL (0.8-2.0)
== END 2022-06-10 05:54 | disposition home or self-care (01) ==
LOC: HO.LHD 05:53
PROVIDERS: Internal Medicine Cardiovascular Disease; Visit Provider Internal Medicine
DX: I48.20 Chronic atrial fibrillation, unspecified (principal); I50.9 Heart failure, unspecified; Z51.81 Encounter for therapeutic drug level monitoring; Z79.01 Long term (current) use of anticoagulants; Z79.899 Other long term (current) drug therapy
CPT/HCPCS: 36415; 80048; 80162; 85610

== ENCOUNTER 2022-06-18 06:49 | Outpatient (REF) | payer MEDICARE, SELFPAY ==
[2022-06-18 10:01] LABS: INTERNATIONAL NORM RATIO 1.7 (0.9-1.1); Prothrombin Time 20.4 SEC (10.0-13.1)
== END 2022-06-18 06:50 | disposition home or self-care (01) ==
LOC: HO.LHD 06:49
PROVIDERS: Visit Provider Internal Medicine
DX: Z79.01 Long term (current) use of anticoagulants (principal)
CPT/HCPCS: 36415; 85610

== ENCOUNTER 2022-06-25 05:41 | Outpatient (REF) | payer MEDICARE, SELFPAY ==
[2022-06-25 11:20] LABS: INTERNATIONAL NORM RATIO 1.6 (0.9-1.1); Prothrombin Time 19.3 SEC (10.0-13.1)
== END 2022-06-25 05:42 | disposition home or self-care (01) ==
LOC: HO.LHD 05:41
PROVIDERS: Internal Medicine; Visit Provider Family Medicine
DX: I48.20 Chronic atrial fibrillation, unspecified (principal); Z51.81 Encounter for therapeutic drug level monitoring; Z79.01 Long term (current) use of anticoagulants
CPT/HCPCS: 36415; 85610

== ENCOUNTER 2022-07-02 06:25 | Outpatient (REF) | payer MEDICARE, SELFPAY ==
[2022-07-02 09:52] LABS: INTERNATIONAL NORM RATIO 2.5 (0.9-1.1); Prothrombin Time 29.9 SEC (10.0-13.1)
== END 2022-07-02 06:26 | disposition home or self-care (01) ==
LOC: HO.LHD 06:25
PROVIDERS: Visit Provider Internal Medicine
DX: Z79.01 Long term (current) use of anticoagulants (principal)
CPT/HCPCS: 36415; 85610

== ENCOUNTER → 2022-07-08 09:37 | Outpatient (BNVA) | payer MEDICARE, SELFPAY | PROVIDERS: PCP Internal Medicine; Referring Provider Internal Medicine; Visit Provider Internal Medicine Cardiovascular Disease | DX: I48.20 Chronic atrial fibrillation, unspecified (principal); I50.9 Heart failure, unspecified; Z79.01 Long term (current) use of anticoagulants; Z79.899 Other long term (current) drug therapy | CPT/HCPCS: 99212 ==

== ENCOUNTER 2022-07-10 10:30 | Outpatient (REF) | payer MEDICARE, SELFPAY ==
[2022-07-09 11:12] LABS: INTERNATIONAL NORM RATIO 2.6 (0.9-1.1); Prothrombin Time 31.6 SEC (10.0-13.1)
== END 2022-07-10 10:31 | disposition home or self-care (01) ==
LOC: HO.LHD 10:30
PROVIDERS: Visit Provider Internal Medicine
DX: Z79.01 Long term (current) use of anticoagulants (principal)
CPT/HCPCS: 36415; 85610

== ENCOUNTER → 2022-07-26 10:56 | Outpatient (BNVA) | payer MEDICARE, SELFPAY | PROVIDERS: PCP Internal Medicine; Visit Provider Internal Medicine | DX: Z79.01 Long term (current) use of anticoagulants (principal) ==

== ENCOUNTER → 2022-07-31 11:21 | Outpatient (BNVA) | payer MEDICARE, SELFPAY | PROVIDERS: PCP Internal Medicine; Visit Provider Internal Medicine | DX: Z79.01 Long term (current) use of anticoagulants (principal) ==

== ENCOUNTER → 2022-08-06 10:00 | Outpatient (BNVA) | payer MEDICARE, SELFPAY | PROVIDERS: PCP Internal Medicine; Visit Provider Internal Medicine ==

== ENCOUNTER → 2022-08-13 11:42 | Outpatient (BNVA) | payer MEDICARE, SELFPAY | PROVIDERS: PCP Internal Medicine; Visit Provider Internal Medicine ==

== ENCOUNTER → 2022-08-15 09:46 | Outpatient (REF) | payer MEDICARE, SELFPAY ==
--- NOTE | 2022-08-15 09:53 | ECG_ITS ---
Test Reason : 148.20 Blood Pressure : / mmHG Vent. Rate : 094 BPM Atrial Rate : 000 BPM P-R Int : 000 ms QRS Dur : 146 ms QT Int : 384 ms P-R-T Axes : 000 270 036 degrees QTc Int : 480 ms Atrial fibrillation with premature ventricular or aberrantly conducted complexes Left axis deviation Right bundle branch block Abnormal ECG When compared with ECG of 17-MAR-2022 11:23, No significant change was found Referred By: Ben Durham Electronically Signed By:WILIAM WALLS MD
== END ==
LOC: HO.CARD 09:46
PROVIDERS: PCP Internal Medicine; Visit Provider Internal Medicine
DX: I48.20 Chronic atrial fibrillation, unspecified (principal); H26.9 Unspecified cataract
CPT/HCPCS: 93005

== ENCOUNTER 2022-08-16 12:02 | Emergency (ER) | payer MEDICARE, SELFPAY ==
--- NOTE | ~2022-08-16 | US_ITS ---
EXAMINATION: US VENOUS ULTRASOUND WITH DOPPLER LOWER EXTREMITY, RIGHT CLINICAL INFORMATION: Edema. Pain. COMPARISON: None available. TECHNIQUE: Ultrasound of the deep veins is performed from the hip to the calf with compression sonography and color and pulse Doppler assessment. Spectral analysis with color-flow imaging is performed. FINDINGS: There is normal venous compression and respiratory variation and augmented flow. The visualized common femoral vein, superficial femoral vein, profunda femoral vein, popliteal vein, and the trifurcation region shows no evidence of deep venous thrombosis. Posterior tibial vein and midcalf is normal. The peroneal veins are not visualized. There is no significant popliteal fossa cyst. Atherosclerotic vascular calcifications of the arteries. If the patient's symptoms persist, followup ultrasound in 5 days 7 days might be of value to exclude proximal propagation from a non-visualized calf vein. US/US venous duplex LE RT IMPRESSION: No DVT demonstrated in the right lower extremity.
--- NOTE | ~2022-08-16 | XR_ITS ---
EXAMINATION: XR CERVICAL SPINE CLINICAL INFORMATION: Neck pain COMPARISON: None available. TECHNIQUE: 3 views of the cervical spine were obtained. The exam is limited due to significant artifact overlying the neck. Exam FINDINGS: There is mild straightening of cervical lordosis. The vertebral heights, alignment are normal. There is loss of C5-C6 and C6-C7 disc heights with moderate ventral spondylosis. No visible acute fracture, dislocation or subluxation seen. Mild facet joint arthropathy seen on the left C5-C6, C4-C5 and C3-C4 disc levels. There is moderate thickening of right apical pleura with postsurgical jesus and sutures right upper lobe from previous intervention. Chronic interstitial scarring is seen in both upper lobes XR/XR cervical spine 3V IMPRESSION: 1. Degenerative disc changes C5-C6 and C6-C7 disc levels with moderate ventral spondylosis. No visible acute fracture, dislocation or lytic process seen. 2. Moderate thickening apical pleura and postsurgical jesus and sutures from previous intervention.
[2022-08-16 12:31] VITALS: BP 144/74; PULSE 80; O2SAT 98
[2022-08-16 12:39] VITALS: BP 132/59; PULSE 87; RESP 18; TEMP 36.7; O2SAT 95; BMI 21.3
[2022-08-16 13:55] LABS: MANUAL DIFF FLAG NO
[2022-08-16 14:06] LABS: INTERNATIONAL NORM RATIO 1.8 (0.9-1.1); Prothrombin Time 20.8 SEC (10.0-13.1)
[2022-08-16 14:08] LABS: Partial Thromboplastin Time 36.2 SEC (26.0-36.4)
[2022-08-16 14:13] LABS: Basophils Percent Auto 0.7 % (0-2); Eosinophils Absolute Auto 0.1 X10*3/uL (0.0-0.4); Eosinophils Percent Auto 1.4 % (0-4); Hematocrit 34.3 % (42.0-52.0); Hemoglobin 11.1 g/dl (14.0-18.0); Imm Gran Abs Auto 0.01 X10*3/uL (0.00-0.03); Imm Gran Pct Auto 0.2 % (0.0-0.4); Lymphocytes Percent Auto 16.8 % (20-40); Mean Corpuscular HGB Conc 32.4 g/dl (31.0-36.0); Mean Corpuscular Hemoglobin 33.4 pg (27.0-33.0); Mean Corpuscular Volume 103.3 fL (80.0-98.0); Mean Platelet Volume 11.4 fL (9.4-12.4); Monocytes Absolute Auto 0.9 X10*3/uL (0.1-1.2); Monocytes Percent Auto 15.6 % (2-11); Neutrophils Absolute Auto 3.7 x10*3/uL (2.0-8.3); Neutrophils Percent Auto 65.3 % (45-73); Platelet Count 144 X10*3/uL (160-400); Red Blood Count 3.32 X10*6/uL (4.60-5.80); White Blood Count 5.7 X10*3/uL (4.8-10.8)
[2022-08-16 14:16] LABS: Alanine Aminotransferase 17 U/L (0-40); Albumin Level 3.6 g/dL (3.5-5.0); Alkaline Phosphatase 85 U/L (39-117); Anion Gap 12 (12-20); Aspartate Amino Transferase 24 U/L (5-37); Bilirubin Direct 0.3 mg/dL (0.0-0.5); Bilirubin Total 0.8 mg/dL (0.0-1.0); Blood Urea Nitrogen 42 mg/dL (9-16); Carbon Dioxide 33 mmol/L (22-29); Chloride 106 mmol/L (96-108); Creatinine Clr Calc Pharmacy 46.5; Estimated Glomerular Filt Rate 54; Glucose Random 104 mg/dL (60-115); Magnesium 2.4 mg/dL (1.6-2.6); Potassium 4.8 mmol/L (3.3-5.1); Sodium 146 mmol/L (135-145); Total Protein 6.2 g/dL (6.5-8.0)
--- NOTE | 2022-08-16 14:19 | ED_ITS ---
HPI - General Adult General Chief complaint: General Medical Stated complaint: Pain on R side per EMS Time Seen by Provider: 08/16/22 13:36 Source: patient Mode of arrival: EMS History of Present Illness HPI narrative: Patient is a 82yo male with history of lung cancer, CHF, atrial fibrillation, CAD, HLD, PAD, osteoarthritis, and neuropathy presenting for pain in his right lower extremity for 3 days. Patient states that he woke up with the pain and does not recall any preceding events. He stated that the pain is present from his knee up to his groin ion the anterior thigh. He describes the pain as sharp, burning and like electricity . Patient denies trauma, fever, fatigue, headache, neck stiffness, SOB, chest pain, difficulty breathing, abdominal pain, heartburn, nausea, vomiting, diarrhea, back pain, dysuria, hematuria, urinary retention, urinary or stool incontinence, myalgia, arthralgia, or stiffness. He stated he lives at home alone and is concerned about ambulating due to the pain and concern of falling. He is not currently getting cancer treatment and stated theres no cure . MD complaint: right lower extremity pain Onset (ago): day(s) (3) Location: right and lower extremity Radiation: non-radiation Quality: burning and sharp Pain Consistency: constant Associated symptoms: denies other symptoms Treatments prior to arrival: none Related Data Home Medications Medication Instructions Recorded Confirmed calcium carbonate 600 mg-vitamin 1 tab PO DAILY 07/10/20 08/13/22 D3 5 mcg (200 unit) tablet multivitamin 1 tab PO DAILY 07/10/20 08/13/22 nicotine 14 mg/24 hr daily 1 patch transdermal DAILY@1500 07/10/20 08/13/22 transdermal patch aspirin 81 mg tablet,delayed 81 mg PO DAILY@1500 09/22/21 08/13/22 release (Adult Low Dose Aspirin) valsartan 40 mg tablet 40 mg PO DAILY 09/22/21 08/13/22 febuxostat 40 mg tablet 40 mg PO Q2D for gout pain 03/11/22 08/13/22 digoxin 125 mcg (0.125 mg) tablet 125 mcg PO SUMOWEFRSA@0900 03/17/22 08/13/22 ferrous sulfate 325 mg (65 mg 325 mg PO DAILY@1500 03/17/22 08/13/22 iron) tablet vit C 250 mg-vit E 90 mg-zinc 40 1 tab PO DAILY 03/17/22 08/13/22 mg-copper 1 [id number] capsule (PreserVision AREDS-2) Previous Rx's Medication Instructions Recorded albuterol sulfate 90 mcg/actuation 2 puff inhalation Q6H PRN 11/30/20 aerosol inhaler (Ventolin HFA) shortness of breath or wheezing #6.7 grams HINGED KNEE BRACE (left) #1 ea 08/31/21 loratadine 10 mg tablet 10 mg PO DAILY #7 tabs 03/22/22 nystatin 100,000 unit/mL oral 500,000 unit PO QID #15 mL 03/22/22 suspension folic acid 1 mg tablet 1 mg PO DAILY #90 tabs 05/06/22 furosemide 40 mg tablet 40 mg PO .COMPLEX 60 days #90 tabs 06/06/22 potassium chloride 20 mEq 20 meq PO DAILY 60 days #60 tabs 06/06/22 tablet,extended release(part/cryst) atorvastatin 40 mg tablet 40 mg PO BEDTIME #90 tabs 07/03/22 warfarin 1 mg tablet 2 mg PO .COMPLEX #90 tabs 07/03/22 metoprolol succinate 50 mg 50 mg PO TID 90 days #270 tabs 07/30/22 tablet,extended release 24 hr Allergies Allergy/AdvReac Type Severity Reaction Status Date / Time No Known Allergies Allergy Unknown UNKNOWN Verified 08/13/22 15:52 [NO KNOWN ALLERGIES] Review of Systems Review of Systems: Yes all other systems are reviewed and are negative [facility] Past Medical History Medical History (Updated 08/16/22 @ 17:01 by MICKIE Baca) Anemia Atrial fibrillation with rapid ventricular response Back pain Benign essential hypertension Bilateral lower extremity edema CAD (coronary artery disease) Cancer of upper lobe of right lung (~2013) Chronic atrial fibrillation Congestive heart failure COPD (chronic obstructive pulmonary disease) Gout Heart failure with reduced ejection fraction HLD (hyperlipidemia) Lumbar degenerative disc disease Neuropathy Osteoarthritis Osteoarthritis of knees, bilateral PAD (peripheral artery disease) Physical deconditioning Recurrent non-small cell lung cancer Smoker Type 2 diabetes mellitus with other diabetic kidney complication Vitamin D deficiency Wears dentures Surgical History History of angioplasty (~12/2020) History of back surgery History of brain surgery (~2003) History of bronchoscopy (~2020) History of cardiac cath (~02/2016) History of colonoscopy (~01/2001) History of lung biopsy History of lung surgery (~07/2013) History of lung surgery (~2019) History of partial colectomy (~01/2001) History of right knee surgery (~09/2005) History of thoracentesis (~09/2019) Family History Family History Mother Heart disease Father Heart disease Social History Social History Household Members: None [facility] Are you a primary progressive care unit registered nurse to a significant other at home: No Do you presently have visiting nurse or other home services: No Alcohol intake: former Patient Tobacco Use Status: Current everyday Tobacco user Tobacco use type: Cigarette Cigarette Packs Per Day: 0.5 Cigarettes Per Day: 10 Years Smoked: 50 Second Hand Smoke Exposure: No Advance Directives: Yes Advance Directives on File: Yes Advance Directives Date on File: 10/05/21 service: No Current occupational status: retired Cognitive needs: Yes (cane) Hearing needs: No Vision needs: Yes Physical Exam ED Vital Signs: Vital Signs - 24 hr 08/16/22 12:39 Temperature 98.1 F Pulse Rate 87 Respiratory Rate 18 Blood Pressure 132/59 L Pulse Oximetry 95 Oxygen Delivery Method Room Air BMI result Body Mass Index 21.3 Appearance: Alert. Oriented X3. No acute distress. Head: normocephalic, atraumatic. Neck: Normal inspection. Neck supple. CVS: Normal heart rate and rhythm. Pulses normal. Peripheral lower extremity pulses present bilaterally. Respiratory: No respiratory distress. Breath sounds normal. Abdomen: Soft and nontender. Skin: Skin warm and dry. Normal skin color. Normal skin turgor. No rashes. Extremities: trace bilateral lower extremity edema with more significant edema p resent on right. no erythema or warmth noted. tenderness to palpation over right anterior, medial, and lateral thigh. knee brace present on patients left knee Neuro/psych: Oriented X 3. No motor deficit. No sensory deficit. Normal speech and cognition. Gait not tested due to pain Course Reevaluation(s) Reevaluation #1: Lower extremity Dopplers negative for DVT. Patient has impaired mobility due to right leg pain and swelling. Will plan on physical therapy evaluation and case management consult for either short-term rehab placement or increased services at home as he lives home alone. Will place patient physician observation at this time. Time: 16:58 Medical Decision Making Medical Decision Making [facility] Narrative: Patient is a 82yo male with history of lung cancer, CHF, atrial fibrillation, CAD, HLD, PAD, osteoarthritis, and neuropathy presenting for pain in his right lower extremity for 3 days. Patient's physical exam showed bilateral lower extremity edema more significant on the right with tenderness to palpation over the right thigh. Labs showed []. Doppler US showed []. Patient was given []. He was instructed to take his medications as directed. He was instructed to follow up with his primary care doctor and to call 911 or return if he develops new or worsening symptoms. Differential Diagnosis Differential Diagnoses: The differential diagnosis associated with the presentation includes peripheral neuropathy, PAD, DVT, cellulitis Lab Data [facility] Lab Attestation statement: I reviewed the patient's lab results. 08/16/22 13:48 08/16/22 13:48 Labs: Lab Results 08/16/22 08/16/22 08/16/22 Range/Units 13:48 13:48 13:48 WBC 5.7 (4.8-10.8) X10*3/uL RBC 3.32 L (4.60-5.80) X10*6/uL Hgb 11.1 L (14.0-18.0) g/dl Hct 34.3 L (42.0-52.0) % MCV 103.3 H (80.0-98.0) fL MCH 33.4 H (27.0-33.0) pg MCHC 32.4 (31.0-36.0) g/dl RDW 15.0 (11.0-16.0) % Plt Count 144 L D (160-400) X10*3/uL MPV 11.4 (9.4-12.4) fL Immature Gran % (Auto) 0.2 (0.0-0.4) % Neut % (Auto) 65.3 (45-73) % Lymph % (Auto) 16.8 L (20-40) % Oxford % (Auto) 15.6 H (2-11) % Eos % (Auto) 1.4 (0-4) % Baso % (Auto) 0.7 (0-2) % Lymph # (Auto) 1.0 L (1.2-4.9) X10*3/uL Oxford # (Auto) 0.9 (0.1-1.2) X10*3/uL Eos # (Auto) 0.1 (0.0-0.4) X10*3/uL Baso # (Auto) 0.0 (0.0-0.2) X10*3/uL Abs Immat Gran (auto) 0.01 (0.00-0.03) X10*3/uL Absolute Neuts (auto) 3.7 (2.0-8.3) x10*3/uL Absolute Nucleated RBC 0.000 (0.0-0.012) X10*3/uL Nucleated RBC % (auto) 0.0 (0.0-0.2) /100WBC PT 20.8 H (10.0-13.1) SEC INR 1.8 H (0.9-1.1) APTT 36.2 D (26.0-36.4) SEC Sodium 146 H (135-145) mmol/L Potassium 4.8 (3.3-5.1) mmol/L Chloride 106 (96-108) mmol/L Carbon Dioxide 33 H (22-29) mmol/L Anion Gap 12 (12-20) BUN 42 H (9-16) mg/dL Creatinine 1.28 (0.5-1.4) mg/dL Estim Creat Clear Calc 46.5 Estimated GFR 54 Random Glucose 104 (60-115) mg/dL Calcium 9.0 (8.4-10.2) mg/dL Magnesium 2.4 (1.6-2.6) mg/dL Total Bilirubin 0.8 (0.0-1.0) mg/dL Direct Bilirubin 0.3 (0.0-0.5) mg/dL AST 24 (5-37) U/L ALT 17 (0-40) U/L Alkaline Phosphatase 85 (39-117) U/L Total Creatine Kinase 64 (38-174) U/L Total Protein 6.2 L (6.5-8.0) g/dL Albumin 3.6 (3.5-5.0) g/dL Independent Interpretation I performed an independent interpretation of an: Ultrasound Radiology Impression Discussion of test interpretation with radiology: I have reviewed the radiologist's reading. Radiologist Impression: US/US venous duplex LE RT IMPRESSION: No DVT demonstrated in the right lower extremity. Independent Historian Clinical information obtained from an independent historian. History obtained from or confirmed by: EMS External Record Review External record reviewed: Office record, Outpatient record, Prior outpatient labs and Prior outpatient radiology Prescription Management I considered prescription management with: Pain Medication Chronic Conditions Patient?s care impacted by: Other (lung cancer) Critical Care Time Critical Care Time Critical Care Time: No Discharge Plan Discharge Clinical Impression: Acute pain of right lower extremity Patient Disposition: Still a Patient Prescriptions: No Action folic acid 1 mg tablet 1 mg PO DAILY Qty: 90 0RF atorvastatin 40 mg tablet 40 mg PO BEDTIME Qty: 90 0RF warfarin 1 mg tablet 2 mg PO .COMPLEX Qty: 90 3RF Protocol: Dose Management Condition: Friday (Week One) Dose/Route: 1 mg Instruction: 1 x 1 mg tablet Condition: Friday Dose/Route: 1 mg Instruction: 1 x 1 mg tablet Condition: Friday Dose/Route: 2.5 mg Instruction: 2.5 x 1 mg tablets Condition: Friday Dose/Route: 1 mg Instruction: 1 x 1 mg tablet Condition: Dose/Route: 1 mg Instruction: 1 x 1 mg tablet Condition: Friday Dose/Route: 1 mg Instruction: 1 x 1 mg tablet Condition: Friday Dose/Route: 2 mg Instruction: 2 x 1 mg tablets Condition: Friday (Week Two) Dose/Route: 1 mg Instruction: 1 x 1 mg tablet Condition: Friday Dose/Route: 1 mg Instruction: 1 x 1 mg tablet Condition: Friday Dose/Route: 2 mg Instruction: 2 x 1 mg tablets Condition: Friday Dose/Route: 1 mg Instruction: 1 x 1 mg tablet Condition: Dose/Route: 1 mg Instruction: 1 x 1 mg tablet Condition: Friday Dose/Route: 1 mg Instruction: 1 x 1 mg tablet Condition: Friday Dose/Route: 2 mg Instruction: 2 x 1 mg tablets Protocol Text: Adjustment Start Date: Friday08/13/22 INR Value: 1.9 INR Date: 08/13/22 Recheck Date: 08/20/22 Additional Instructions: INR is just below range increase dose today to 2.5mg then resume usual dosing no greens today and tomorrow then balance greens and reds in diet and be consistent Rx Instructions: 2 mg orally WED SAT/ 1MG X 5 DAYS; metoprolol succinate 50 mg tablet extended release 24 hr 50 mg PO TID 90 Days Qty: 270 3RF Protocol: Hold for SBP/HR < HOLD for SBP < : 90 HOLD for HR < : 60 multivitamin Tablet 1 tab PO DAILY nicotine 14 mg/24 hr Patch 24 Hour 1 patch TRANSDERMAL DAILY@1500 calcium carbonate-vitamin D3 600 mg(1,500mg) -200 unit Tablet 1 tab PO DAILY albuterol sulfate [Ventolin HFA] 90 mcg/actuation HFA aerosol inhaler 2 puff inhalation Q6H PRN (Reason: shortness of breath or wheezing) Qty: 6.7 0RF ferrous sulfate 325 mg (65 mg iron) Tablet 325 mg PO DAILY@1500 digoxin 125 mcg (0.125 mg) tablet 125 mcg PO SUMOWEFRSA@0900 PreserVision AREDS-2 250-90-40-1 mg capsule 1 tab PO DAILY nystatin 100,000 unit/mL Suspension 500,000 unit PO QID Qty: 15 0RF Protocol: Apply to: Apply to: swish and swallow loratadine 10 mg Tablet 10 mg PO DAILY Qty: 7 0RF (DME) HINGED KNEE BRACE (left) See Rx Instructions .Route .MEDSUPPLY Qty: 1 0RF Rx Instructions: As directed valsartan 40 mg tablet 40 mg PO DAILY Hold Instructions: Resume on 03/25/22. aspirin [Adult Low Dose Aspirin] 81 mg tablet,delayed release (DR/EC) 81 mg PO DAILY@1500 furosemide 40 mg tablet 40 mg PO .COMPLEX 60 Days Qty: 90 3RF Rx Instructions: 40 mg orally 1 tablet in am and 1/2 tablet at 3 PM daily potassium chloride 20 mEq tablet,ER particles/crystals 20 meq PO DAILY 60 Days Qty: 60 3RF febuxostat 40 mg tablet 40 mg PO Q2D
--- NOTE | 2022-08-16 17:49 | PHA.MEDREC ---
Pharmacy Consult ? Medication Reconciliation Pharmacy has completed the medication reconciliation. Patient had list with him
--- NOTE | 2022-08-16 18:33 | PC.NURSE ---
plan for pt to see PT/CM this weekend and decide LTC vs increased services at home
[2022-08-16 19:42] VITALS: BP 128/53; PULSE 85; RESP 18; TEMP 36.9; O2SAT 91
--- NOTE | 2022-08-16 21:38 | PC.NURSE ---
Assumed care of pt. at 1900. Pt. was changed and cleaned up by tech at this time. Pt. sleeping, respirations even and unlabored, no distress noted.
--- NOTE | 2022-08-16 22:07 | MHC.EDTECH ---
Patient inc and changed
--- NOTE | 2022-08-16 22:24 | PC.NURSE ---
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 Med rec completed and requested medications from provider. Pt. quietly resting in bed. VSS.
[2022-08-16] MEDS: Metoprolol Succinate ER 50 MG TAB.ER.24H PO (22:46)
[2022-08-16] MEDS: Atorvastatin Calcium 40 MG TABLET PO (22:46)
[2022-08-16] MEDS: Warfarin Sodium 1 MG TABLET PO (22:56)
[2022-08-16 22:57] VITALS: BP 145/64; PULSE 86; RESP 16; TEMP 36.6; O2SAT 93
[2022-08-17 02:06] LABS: Appearance Urine Clear; Color Urine Yellow; Glucose Urine UA Negative (Negative); Leukocyte Esterase Urine Negative (Negative); Nitrite Urine Negative (Negative); PH 5.5 (5.0-9.0); Specific Gravity - Urine 1.015 (1.005-1.025); UMIC TRIGGER UACC YES; Urine Blood Negative (Negative); Urine Ketones Negative (Negative); Urine Protein 30 (1+) mg/dL (Neg-Trace)
[2022-08-17 02:12] LABS: Bacteria Urine None Seen (None Seen); Hyaline Casts Urine 0-2 /LPF (0-2); RBC Urine 0-2 /HPF (0-2); Squamous Epithelial Cell Urine 0-2 /HPF (0-2); WBC Urine 0-5 /HPF (0-5)
[2022-08-17 06:00] VITALS: BP 138/71; PULSE 96; RESP 16; TEMP 37; O2SAT 97
--- NOTE | 2022-08-17 06:13 | MHC.EDTECH ---
THIS PCT JUST ASSUMED CARE OF PT ,0600 ,VITALS SIGN TAKEN ,BED ALARM ON FRESH PITCHER WATER GIVEN ,PT WATCHING TELEVISION .
--- NOTE | 2022-08-17 07:43 | PC.NURSE ---
Pts daughter called looking for update. Stated pt has not yet been seen by PT or case management.
[2022-08-17] MEDS: Metoprolol Succinate ER 50 MG TAB.ER.24H PO ×3 (09:18→20:44)
[2022-08-17] MEDS: Calcium + Vitamin D 250 MG TABLET 500 MG PO (09:18)
[2022-08-17] MEDS: Potassium Chloride ER 20 MEQ TAB.ER.PRT PO (09:18)
[2022-08-17] MEDS: Folic Acid 1 MG TABLET PO (09:19)
[2022-08-17] MEDS: Digoxin 0.125 MG TABLET PO (09:19)
--- NOTE | 2022-08-17 09:45 | PC.NURSE ---
pharmacy called for remaining meds to be brought over.
[2022-08-17] MEDS: oxyCODONE HCl Immed Release 5 MG TABLET PO ×2 (10:34→16:34)
--- NOTE | 2022-08-17 12:06 | MHC.CM.ED ---
Addendum entered by Quiana Wilson RN 08/17/22 12:11: PER CONVERSATION WITH RN, P.T. WAS IN TO SEE PATIENT, WHO WAS NOT ABLE TO GET OUT OF BED. P.T. REPORTEDLY TO RETURN Original Note: CASE MANAGEMENT ATTEMPTED TO MEET WITH PATIENT. PATIENT CURRENTLY ON THE PHONE CM WAITED FOR PATIENT. PLAN IS NOW TO REATTEMPT AT A TIME THAT IS BETTER FOR PATIENT. PATIENT AWARE THAT T/W WILL RETURN
[2022-08-17 12:51] VITALS: BP 138/71; PULSE 95
[2022-08-17] MEDS: Valsartan 40 MG TABLET PO (13:00)
[2022-08-17] MEDS: Acetaminophen 325 MG TABLET 650 MG PO (13:01)
[2022-08-17] MEDS: Nicotine 14 MG PATCH.TD24 TRANSDERMA (13:01)
[2022-08-17] MEDS: Gabapentin 300 MG CAPSULE PO (13:54)
[2022-08-17 14:00] VITALS: BP 149/76; PULSE 98; RESP 18; TEMP 37; O2SAT 93
[2022-08-17 14:06] LABS: INTERNATIONAL NORM RATIO 2.2 (0.9-1.1); Prothrombin Time 26.4 SEC (10.0-13.1)
--- NOTE | 2022-08-17 14:21 | MHC.CM.PN ---
PATIENT LIVES ALONE. HE REPORTS HAVING HELP WITH GROCERIES AND TRANSPORT NEEDS. HE IS ACTIVE WITH [facility] FOR RN SKILLS (INR CHECKS) 1-2 X /WEEK AND P.T. 1-2 X /WEEK. HE REFUSES ANY SNF REFERRAL AND WANTS OT RETURN HOME WITH [facility] OF [facility]. PATIENT REPORTS RECENTLY BEING AT [facility] AND [facility]IN BEGAN JUST AFTER INFO RELATED TO RN. REFERRAL TO [facility] FOR RESUMPTION OF SERVICES AND (PERHAPS AN INCREASE)
--- NOTE | 2022-08-17 14:53 | MHC.CM.ED ---
[facility] VERIFIES THAT PATIENT IS ACTIVE AND THEY ARE WILLING TO RESUME SERVICES FOR HIM.
[2022-08-17] MEDS: Aspirin Enteric Coated 81 MG TABLET.DR PO (16:32)
[2022-08-17] MEDS: Ferrous Sulfate 324 MG TABLET.DR PO (16:33)
[2022-08-17] MEDS: Warfarin Sodium 2 MG TABLET PO (17:21)
--- NOTE | 2022-08-17 20:14 | PC.NURSE ---
Assumed care at 11 AM. Patient alert and oriented. Still has constant pain from his right leg up to his right groin and back pain. Per his daughter, he has occasional baseline incontinence. PRN oxycodone with practically no change in pain, still 8/10. Gave PRN tylenol despite 1-3/10 pain ordered range due to lack of other pain medications ordered, TOOLMAN aware. Due to character of pain being like burning/shocklike/electric feeling, discussed possibly giving something more specific to neuropathic pain; one-time dose of gabapentin ordered and administered with minimal effect. Given hx of lung cancer and back surgery, discussed possible risk for radiculopathy and need further workup, given he has been unable to walk due to pain, and no further orders at this time. Notably patient had PET scan last july and CXRs since then as well as Chest CTs. PT came by twice today, and was unable to get patient to get OOB. ocycodone adminitered again at 1634, see eMar. Patient eating well. Patient using bed lópez, no BM, has urinated in bedpan each time. No incontinence noted this shift.
[2022-08-17 20:42] VITALS: BP 115/84; PULSE 91; RESP 18; O2SAT 92
[2022-08-17] MEDS: Atorvastatin Calcium 40 MG TABLET PO (20:44)
--- NOTE | 2022-08-17 20:58 | PC.NURSE ---
This procedure writer assumed care of this Pt at 1900. Pt A&Ox4, reports 8/10 intermittent right leg pain between the groin and the knee and it feels like lightning, no one knows what it is . Pt in bed, repositioned, right leg elevated with pillows per request. Reports no effectiveness to meds given for pain from previous nurse, provider is aware. Pt is wearing a left knee brace.
[2022-08-18] MEDS: oxyCODONE HCl Immed Release 5 MG TABLET PO ×3 (00:01→18:37)
[2022-08-18 00:12] VITALS: BP 126/74; PULSE 86; RESP 17; TEMP 36.4; O2SAT 93
--- NOTE | 2022-08-18 03:12 | PC.NURSE ---
Assumed care of pt at 23:00. Pt is alert and orientated x4. Pt is resting quietly in bed and watching t.v. Urinal at bedside. During rounds, pt reported 8/10 pain to his right knee and groin area. PRN medication was given to pt at 00:01, pending results. Pt repositioned and right leg elevated with pillows. Pt has a brace to left knee. Will continue to monitor pt's pain level.
[2022-08-18 07:59] VITALS: BP 136/69; PULSE 95; RESP 18; TEMP 36.5; O2SAT 93
[2022-08-18] MEDS: Metoprolol Succinate ER 50 MG TAB.ER.24H PO ×3 (08:56→21:33)
[2022-08-18] MEDS: Potassium Chloride ER 20 MEQ TAB.ER.PRT PO (08:56)
[2022-08-18] MEDS: Calcium + Vitamin D 250 MG TABLET 500 MG PO (08:57)
[2022-08-18] MEDS: Digoxin 0.125 MG TABLET PO (08:57)
[2022-08-18] MEDS: Folic Acid 1 MG TABLET PO (08:57)
[2022-08-18] MEDS: Nicotine 14 MG PATCH.TD24 TRANSDERMA (09:32)
[2022-08-18] MEDS: Valsartan 40 MG TABLET PO (09:33)
--- NOTE | 2022-08-18 11:12 | MHC.CM.ED ---
[facility] UPDATED IN [facility]. AGENCY IS HAPPY TO RESUME SERVICES AT [facility]
--- NOTE | 2022-08-18 11:32 | PC.NURSE ---
PT alert and oriented x 3, laying in hospital bed resting. Reports pain in R leg, says is intermittent/shocks sometimes with twitching of that leg- pain level 7-8/10, given PRN pain medication as ordered. Left leg has brace in place, both limbs elevated for comfort. Discussed multiple topics with patient this am at his request- pt reports seeking care with chiropractor prior to admission to this facility, and states his neck was giving him some pain at that time/currently, reports the chiropractor suggested getting it looked at further, did request imaging, relayed this request for Xray of C-spine to provider Argentina Skaggs. Daughter Sobia called for update this am as well, discussed patient current status with dtr as okayed by patient; discussed pain and relayed no current updates at this point have been given. Call be within reach, will continue to monitor for changes/needs. See biophysical details for focused assessment.
[2022-08-18 13:07] LABS: INTERNATIONAL NORM RATIO 4.4 (0.9-1.1)
[2022-08-18 13:45] VITALS: BP 132/71; PULSE 100; RESP 18; TEMP 37.3; O2SAT 89
--- NOTE | 2022-08-18 14:32 | MHC.CM.ED ---
PATIENT IS AGREEABLE TO ACUTE REHAB REFERRALS. [facility] REFERRALS TO BE PLACED. PATIENT AND DAUGHTER AALIYAH ([phone]) REPORT NEGATIVE EXPERIENCES AT PRIOR REHAB FACILITIES WHICH IS WHY PATIENT HAS BEEN RESISTANT
[2022-08-18] MEDS: Acetaminophen 325 MG TABLET 650 MG PO (15:51)
[2022-08-18] MEDS: Aspirin Enteric Coated 81 MG TABLET.DR PO (15:52)
[2022-08-18] MEDS: Ferrous Sulfate 324 MG TABLET.DR PO (15:52)
--- NOTE | 2022-08-18 18:01 | PC.NURSE ---
INR value 4.4, reported to provider Argentina Skaggs, coumadin PM dose to be held.
[2022-08-18] MEDS: Atorvastatin Calcium 40 MG TABLET PO (21:32)
--- NOTE | 2022-08-18 22:39 | PC.NURSE ---
Assumed care of pt. at 1900. Pt. resting in bed at this time. Pt. expresses some frustration that he's just stuck waiting in limbo . Pt. is pending PT eval to determine whether home with added help or STR is more appropriate. Pt. just wants answers as to why he has been unable to walk and why his leg has been hurting. Pt. did report relief from the oxycodone he was given by the previous RN.
[2022-08-19] MEDS: oxyCODONE HCl Immed Release 5 MG TABLET PO ×4 (00:29→18:10)
[2022-08-19 00:50] VITALS: BP 114/57; PULSE 65; RESP 16; TEMP 36.6; O2SAT 98
[2022-08-19 05:56] VITALS: BP 118/75; PULSE 90; TEMP 36.7; O2SAT 94
[2022-08-19 07:40] VITALS: BP 100/62; PULSE 92; RESP 16; TEMP 36.9; O2SAT 94
[2022-08-19] MEDS: Folic Acid 1 MG TABLET PO (07:46)
[2022-08-19] MEDS: Calcium + Vitamin D 250 MG TABLET 500 MG PO (07:46)
[2022-08-19] MEDS: Potassium Chloride ER 20 MEQ TAB.ER.PRT PO (07:46)
[2022-08-19] MEDS: Digoxin 0.125 MG TABLET PO (07:46)
[2022-08-19] MEDS: Metoprolol Succinate ER 50 MG TAB.ER.24H PO ×3 (07:47→20:18)
[2022-08-19 09:11] LABS: Prothrombin Time 97.5 SEC (10.0-13.1)
[2022-08-19 09:14] LABS: INTERNATIONAL NORM RATIO 7.8 (0.9-1.1)
--- NOTE | 2022-08-19 09:20 | PC.NURSE ---
Critical INR 7.8 reported to provider Viviana over in Main ED.
[2022-08-19] MEDS: Nicotine 14 MG PATCH.TD24 TRANSDERMA (10:03)
[2022-08-19 13:54] VITALS: BP 117/55; PULSE 98; RESP 16; TEMP 37.4; O2SAT 92
[2022-08-19] MEDS: Aspirin Enteric Coated 81 MG TABLET.DR PO (13:57)
[2022-08-19] MEDS: Furosemide 40 MG TABLET PO (13:57)
[2022-08-19] MEDS: Furosemide 20 MG TABLET 10 MG PO (13:57)
[2022-08-19] MEDS: Ferrous Sulfate 324 MG TABLET.DR PO (13:58)
--- NOTE | 2022-08-19 15:19 | MHC.EDTECH ---
Assisted patient with personal hygiene and bed lópez use. Repositioned patients pillows under his legs several times. Radha Zarate
--- NOTE | 2022-08-19 15:20 | MHC.EDTECH ---
Pt requested to be put on bedpan for bowel movement. Pt placed on bedpan, pt has limited movement ability due to leg. RN aware
--- NOTE | 2022-08-19 15:36 | MHC.EDTECH ---
Pt had large soft bowel movement in bedpan. Kerrie care given, pad replaced and pt repositioned. RN placed foam dressing on pt coccyx.
[2022-08-19] MEDS: Atorvastatin Calcium 40 MG TABLET PO (20:18)
[2022-08-19 20:38] VITALS: BP 134/61; PULSE 88; RESP 17; TEMP 36.4; O2SAT 96
--- NOTE | 2022-08-19 20:48 | MHC.EDTECH ---
i took over overflow , Scottie was on the bed lópez he said for 1 hour he has a red ring around his bottom, from the lópez, i reminded him that he shouldn't be on the bedpan that long not good for his bottom, he didn't do anything on the lópez, he was cleaned up from previous BM before my shift, he was repositioned , vitals were taken and urinal emptied, he is now resting
--- NOTE | 2022-08-19 23:33 | PC.NURSE ---
pt resting comfortable take po meds with water, cooperative with care
[2022-08-20] MEDS: oxyCODONE HCl Immed Release 5 MG TABLET PO ×2 (01:55→18:55)
[2022-08-20 02:12] LABS: Prothrombin Time 113.1 SEC (10.0-13.1)
[2022-08-20] MEDS: Phytonadione (Vit K1) Oral 10 MG/ML AMPUL 5 MG PO (02:57)
--- NOTE | 2022-08-20 03:22 | PC.NURSE ---
INR drawn at 1 48 am was =9 dr Johnson notified pt rec'd 5 mg of vit K po as ordered next pt will be checked in am
[2022-08-20 06:00] VITALS: BP 111/60; PULSE 82; RESP 18; TEMP 36.4; O2SAT 99
[2022-08-20 06:58] LABS: Prothrombin Time 112.1 SEC (10.0-13.1)
[2022-08-20 07:02] LABS: INTERNATIONAL NORM RATIO 8.9 (0.9-1.1)
[2022-08-20] MEDS: Folic Acid 1 MG TABLET PO (08:22)
[2022-08-20] MEDS: Potassium Chloride ER 20 MEQ TAB.ER.PRT PO (08:22)
[2022-08-20] MEDS: Metoprolol Succinate ER 50 MG TAB.ER.24H PO ×2 (08:22→15:07)
[2022-08-20] MEDS: Calcium + Vitamin D 250 MG TABLET 500 MG PO (08:22)
[2022-08-20] MEDS: Furosemide 40 MG TABLET PO (08:22)
[2022-08-20] MEDS: Nicotine 14 MG PATCH.TD24 TRANSDERMA (08:23)
--- NOTE | 2022-08-20 08:44 | MHC.CM.ED ---
Addendum entered by Jaquelin Palomino 08/20/22 10:12: [facility] requesting updated physical therapy note. PT declining to see patient until INR is under 5. Sravani CORADO aware. Original Note: Patient remains in ER overflow. Clinical updates sent to [facility] via [employer]. Covid swab is ordered and pending. Continue to monitor for d/c needs.
[2022-08-20] MEDS: Valsartan 40 MG TABLET PO (10:05)
--- NOTE | 2022-08-20 10:28 | PC.NURSE ---
pt assisted w eating, had a bm and cleaned by staff, medicated as ordered, new foam dressing placed on coccyx area , pt has an early stage 2 wound, the previous foam dressing was soiled when he had a bm
[2022-08-20 11:51] LABS: COVID-19 Test Negative (Negative); IDNOW Serial# BCCEAD1C
[2022-08-20 12:32] LABS: Prothrombin Time 77.5 SEC (10.0-13.1)
[2022-08-20 12:35] LABS: INTERNATIONAL NORM RATIO 6.2 (0.9-1.1)
[2022-08-20 13:56] VITALS: BP 133/68; PULSE 94; RESP 18; TEMP 37.1; O2SAT 94
[2022-08-20] MEDS: Aspirin Enteric Coated 81 MG TABLET.DR PO (15:05)
[2022-08-20] MEDS: Ferrous Sulfate 324 MG TABLET.DR PO (15:07)
[2022-08-20] MEDS: Furosemide 20 MG TABLET 10 MG PO (15:07)
[2022-08-20] MEDS: Acetaminophen 325 MG TABLET 650 MG PO (15:08)
--- NOTE | 2022-08-20 16:25 | PC.NURSE ---
Assumed care of patient at this time. Patient lying in bed comfortably, resting quietly, respirations even, chest rise/fall noted, no distress noted at this time.
[2022-08-20] MEDS: Atorvastatin Calcium 40 MG TABLET PO (18:56)
[2022-08-20 22:00] VITALS: BP 118/71; PULSE 78; RESP 18; TEMP 37.1; O2SAT 93
--- NOTE | 2022-08-21 04:16 | PC.NURSE ---
PT ASSISTED WITH BEDPAN, LINEN AND GOWN CHANGE. T INCONTINENT OF URINE AND HAS SOFT BROWN BM
[2022-08-21 05:12] VITALS: BP 125/72; PULSE 100; RESP 18; TEMP 36.9; O2SAT 92
[2022-08-21 06:26] LABS: Prothrombin Time 71.3 SEC (10.0-13.1)
[2022-08-21 06:29] LABS: INTERNATIONAL NORM RATIO 5.8 (0.9-1.1)
[2022-08-21] MEDS: Folic Acid 1 MG TABLET PO (08:01)
[2022-08-21] MEDS: Calcium + Vitamin D 250 MG TABLET 500 MG PO (08:01)
[2022-08-21] MEDS: Metoprolol Succinate ER 50 MG TAB.ER.24H PO ×3 (08:01→20:22)
[2022-08-21] MEDS: Digoxin 0.125 MG TABLET PO (08:01)
[2022-08-21] MEDS: Nicotine 14 MG PATCH.TD24 TRANSDERMA (08:01)
[2022-08-21] MEDS: Furosemide 40 MG TABLET PO (08:01)
[2022-08-21] MEDS: Valsartan 40 MG TABLET PO (08:01)
[2022-08-21 08:12] VITALS: BP 142/78; PULSE 124; RESP 16; TEMP 37.4; O2SAT 93
--- NOTE | 2022-08-21 08:15 | MHC.EDTECH ---
Gave patient a complete bed bath.changed gown linen. Emptied urinal. Radha Zarate
--- NOTE | 2022-08-21 09:34 | PC.NURSE ---
PT at the bedside.
--- NOTE | 2022-08-21 10:57 | MHC.CM.ED ---
Addendum entered by Jaquelin Palomino 08/21/22 15:28: Just received notification from [facility] that they will not be able to offer patient a bed. Will meet with patient to discuss discharge planning. Addendum entered by Jaquelin Palomino 08/21/22 14:21: [facility] Rehab MD requesting MRI of spine due to radiating pain and elevated INR. MICKIE Torres aware and doesn't agree. Patient has cancer and has declined treatment. [facility] made aware. Original Note: Patient remains in ER overflow. Updated physical therapy eval available. Clinical updates sent to [facility] They are currently reviewing to see if they can accept patient. Continue to monitor for d/c needs.
[2022-08-21] MEDS: oxyCODONE HCl Immed Release 5 MG TABLET PO ×3 (11:17→20:21)
[2022-08-21] MEDS: Furosemide 20 MG TABLET 10 MG PO (13:55)
[2022-08-21] MEDS: Acetaminophen 325 MG TABLET 650 MG PO ×2 (13:55→20:21)
[2022-08-21] MEDS: Aspirin Enteric Coated 81 MG TABLET.DR PO (13:55)
[2022-08-21] MEDS: Ferrous Sulfate 324 MG TABLET.DR PO (13:56)
[2022-08-21 14:00] VITALS: BP 121/64; PULSE 113; RESP 18; TEMP 37.9; O2SAT 96
--- NOTE | 2022-08-21 18:49 | MHC.EDTECH ---
PT 1x assisted with using bedpan. Pt had large bm and urine output of 600. Pt given pericare 1x assistance. Bed pads changed. Pt repositioned to left side. Pt given warm blanket and call ross in reach
--- NOTE | 2022-08-21 19:24 | MHC.CM.ED ---
CM met with patient and son. A&Ox4. Pt is aware that [facility] is unable to offer a bed. Pt is agreeable to [facility], but refuses [facility], [facility] and [facility]. Pt agreeable to [facility], [facility] and [facility] as preferred choices. Local referrals also place with 3 or more stars. [facility] and CM contact card given. Pt aware that CM will speak with him in the morning regarding choices. Pt is aware that he will go by ambulance to facility. CM following for discharge planning.
--- NOTE | 2022-08-21 20:14 | MHC.EDTECH ---
Pt. requesting to be repositioned. Pt. repositioned given call ross and given warm blanket
[2022-08-21] MEDS: Atorvastatin Calcium 40 MG TABLET PO (20:21)
[2022-08-21 22:04] VITALS: BP 169/91; PULSE 100; RESP 15; TEMP 37.1; O2SAT 92
--- NOTE | 2022-08-21 22:06 | MHC.EDTECH ---
PT 1x assisted with using bedpan. Pt had MED bm and urine output of 300. Pt given pericare 1x assistance. Bed pads changed. Pt repositioned to RIGHT side. Pt given warm blanket and call ross in reach
[2022-08-22] MEDS: oxyCODONE HCl Immed Release 5 MG TABLET PO ×2 (01:44→08:20)
--- NOTE | 2022-08-22 05:10 | PC.NURSE ---
sleeping good tonite, reposition q 2 h and as requested per pt, coccyx redness improving barrier cream applied, will monitor. takes medications well with water
[2022-08-22 06:29] VITALS: BP 129/65; PULSE 94; RESP 20; TEMP 36.6; O2SAT 90
[2022-08-22] MEDS: Potassium Chloride ER 20 MEQ TAB.ER.PRT PO (08:07)
[2022-08-22] MEDS: Folic Acid 1 MG TABLET PO (08:07)
[2022-08-22] MEDS: Furosemide 40 MG TABLET PO (08:07)
[2022-08-22] MEDS: Calcium + Vitamin D 250 MG TABLET 500 MG PO (08:08)
[2022-08-22] MEDS: Valsartan 40 MG TABLET PO (08:08)
[2022-08-22] MEDS: Nicotine 14 MG PATCH.TD24 TRANSDERMA (08:08)
[2022-08-22] MEDS: Metoprolol Succinate ER 50 MG TAB.ER.24H PO (08:08)
--- NOTE | 2022-08-22 09:49 | MHC.EDTECH ---
pt assisted with setting up breakfast tray, new linen given. pt wishes to stay in his room at this time
--- NOTE | 2022-08-22 09:50 | PC.NURSE ---
Pt with 7/10 pain to whole body; PRN oxycodone given with some relief, pt able to sleep. Pt also repositioned and additional pillows placed under legs, no other needs at this time.
--- NOTE | 2022-08-22 11:07 | MHC.CM.ED ---
Patient remains in ER overflow. [facility] bed. Met with patient. Patient accepts bed. [facility] [place] [facility] [place] Patient, Avani Hernandez RN and Lon CORADO aware. Continue to monitor for d/c needs.
[2022-08-22 12:15] LABS: MANUAL DIFF FLAG NO
[2022-08-22 12:21] LABS: Basophils Absolute Auto 0.1 X10*3/uL (0.0-0.2); Basophils Percent Auto 0.9 % (0-2); Eosinophils Absolute Auto 0.1 X10*3/uL (0.0-0.4); Eosinophils Percent Auto 2.3 % (0-4); Hematocrit 33.4 % (42.0-52.0); Hemoglobin 10.4 g/dl (14.0-18.0); Imm Gran Abs Auto 0.01 X10*3/uL (0.00-0.03); Imm Gran Pct Auto 0.2 % (0.0-0.4); Lymphocytes Absolute Auto 0.7 X10*3/uL (1.2-4.9); Lymphocytes Percent Auto 12.5 % (20-40); Mean Corpuscular HGB Conc 31.1 g/dl (31.0-36.0); Mean Corpuscular Hemoglobin 32.1 pg (27.0-33.0); Mean Corpuscular Volume 103.1 fL (80.0-98.0); Mean Platelet Volume 11.2 fL (9.4-12.4); Monocytes Absolute Auto 0.7 X10*3/uL (0.1-1.2); Monocytes Percent Auto 12.9 % (2-11); Neutrophils Absolute Auto 4.1 x10*3/uL (2.0-8.3); Neutrophils Percent Auto 71.2 % (45-73); Platelet Count 183 X10*3/uL (160-400); Red Blood Count 3.24 X10*6/uL (4.60-5.80); Red Cell Distribution Width 14.5 % (11.0-16.0); White Blood Count 5.8 X10*3/uL (4.8-10.8)
[2022-08-22 12:28] LABS: Prothrombin Time 75.6 SEC (10.0-13.1)
[2022-08-22 12:31] LABS: INTERNATIONAL NORM RATIO 6.1 (0.9-1.1)
[2022-08-22 12:34] LABS: Anion Gap 11 (12-20); Blood Urea Nitrogen 69 mg/dL (9-16); Calcium 8.1 mg/dL (8.4-10.2); Carbon Dioxide 32 mmol/L (22-29); Chloride 106 mmol/L (96-108); Creatinine Clr Calc Pharmacy 40.8; Estimated Glomerular Filt Rate 46; Glucose Random 146 mg/dL (60-115); Potassium 4.6 mmol/L (3.3-5.1); Sodium 144 mmol/L (135-145)
== END 2022-08-22 13:49 ==
PROVIDERS: Emergency Medicine; Physician Assistant; Emergency Provider Emergency Medicine; PCP Internal Medicine
DX: M79.604 Pain in right leg (principal); M54.2 Cervicalgia; Z20.822 Contact with and (suspected) exposure to COVID-19; I10 Essential (primary) hypertension; E78.5 Hyperlipidemia, unspecified; I48.20 Chronic atrial fibrillation, unspecified; C34.11 Malignant neoplasm of upper lobe, right bronchus or lung; F17.200 Nicotine dependence, unspecified, uncomplicated; Z79.82 Long term (current) use of aspirin; Z79.899 Other long term (current) drug therapy; Z79.01 Long term (current) use of anticoagulants; Z79.02 Long term (current) use of antithrombotics/antiplatelets
CPT/HCPCS: 36415; 72040; 80048; 80076; 81001; 81003; 82550; 83735; 85025; 85610; 85730; 87635; 93971; 97110; 97162; 97530; 99285

== ENCOUNTER 2022-09-11 06:00 | Outpatient (REF) | payer MEDICARE, SELFPAY ==
[2022-09-11 06:30] LABS: INTERNATIONAL NORM RATIO 2.8 (0.9-1.1); Prothrombin Time 33.1 SEC (10.0-13.1)
== END 2022-09-11 06:01 | disposition home or self-care (01) ==
LOC: HO.MMNH1L 06:00
PROVIDERS: Visit Provider Family Medicine
DX: I48.91 Unspecified atrial fibrillation (principal)
CPT/HCPCS: 36415; 85610

== ENCOUNTER → 2022-09-17 09:35 | Outpatient (BNVA) | payer MEDICARE, SELFPAY | PROVIDERS: PCP Internal Medicine; Visit Provider Internal Medicine ==

== ENCOUNTER → 2022-10-04 16:16 | Outpatient (BNVA) | payer MEDICARE, SELFPAY | PROVIDERS: PCP Internal Medicine; Visit Provider Internal Medicine ==

== ENCOUNTER → 2022-10-11 09:21 | Outpatient (BNVA) | payer MEDICARE, SELFPAY | PROVIDERS: PCP Internal Medicine; Visit Provider Internal Medicine ==

== ENCOUNTER 2022-10-14 08:30 | Outpatient (REF) | payer MEDICARE, SELFPAY ==
[2022-10-14 11:20] LABS: MANUAL DIFF FLAG NO
[2022-10-14 11:27] LABS: Appearance Urine Clear; Color Urine Yellow; Glucose Urine UA Negative (Negative); Leukocyte Esterase Urine Negative (Negative); Nitrite Urine Negative (Negative); Urine Blood Negative (Negative); Urine Ketones Negative (Negative); Urine Protein Negative (Neg-Trace)
[2022-10-14 11:34] LABS: Basophils Absolute Auto 0.1 X10*3/uL (0.0-0.2); Basophils Percent Auto 1.4 % (0-2); Eosinophils Absolute Auto 0.2 X10*3/uL (0.0-0.4); Eosinophils Percent Auto 4.8 % (0-4); Hematocrit 32.4 % (42.0-52.0); Hemoglobin 10.1 g/dl (14.0-18.0); Imm Gran Abs Auto 0.02 X10*3/uL (0.00-0.03); Imm Gran Pct Auto 0.4 % (0.0-0.4); Lymphocytes Absolute Auto 1.1 X10*3/uL (1.2-4.9); Lymphocytes Percent Auto 22.3 % (20-40); Mean Corpuscular HGB Conc 31.2 g/dl (31.0-36.0); Mean Corpuscular Hemoglobin 32.4 pg (27.0-33.0); Mean Corpuscular Volume 103.8 fL (80.0-98.0); Mean Platelet Volume 12.2 fL (9.4-12.4); Monocytes Absolute Auto 0.7 X10*3/uL (0.1-1.2); Neutrophils Absolute Auto 2.8 x10*3/uL (2.0-8.3); Neutrophils Percent Auto 57.1 % (45-73); Platelet Count 183 X10*3/uL (160-400); Red Blood Count 3.12 X10*6/uL (4.60-5.80); Red Cell Distribution Width 18.1 % (11.0-16.0); White Blood Count 4.8 X10*3/uL (4.8-10.8)
[2022-10-14 11:51] LABS: Estimated Average Glucose 117 mg/dL; Hemoglobin A1c % 5.7 %
[2022-10-14 12:10] LABS: Alanine Aminotransferase 14 U/L (0-40); Albumin Level 3.6 g/dL (3.5-5.0); Alkaline Phosphatase 88 U/L (39-117); Anion Gap 13 (12-20); Aspartate Amino Transferase 22 U/L (5-37); Bilirubin Total 0.8 mg/dL (0.0-1.0); Blood Urea Nitrogen 67 mg/dL (9-16); Calcium 8.9 mg/dL (8.4-10.2); Carbon Dioxide 29 mmol/L (22-29); Chloride 108 mmol/L (96-108); Cholesterol 98 mg/dL; Estimated Glomerular Filt Rate 52; Glucose Fasting 108 mg/dL (60-99); HDL Cholesterol 42 mg/dL; LDL Cholesterol Calculated 46 mg/dl; Potassium 4.6 mmol/L (3.3-5.1); Sodium 145 mmol/L (135-145); Total Protein 6.3 g/dL (6.5-8.0); Triglycerides 51 mg/dL
[2022-10-14 12:11] LABS: TSH reflex Free T4 1.44 uIU/mL (0.32-4.0); Vitamin D 25-OH Total 32.5 ng/mL (>30)
== END 2022-10-14 08:31 | disposition home or self-care (01) ==
LOC: HO.HMGCLDS 08:30
PROVIDERS: PCP Internal Medicine; Visit Provider Internal Medicine
DX: I10 Essential (primary) hypertension (principal); E78.00 Pure hypercholesterolemia, unspecified; E55.9 Vitamin D deficiency, unspecified; E11.9 Type 2 diabetes mellitus without complications; R30.0 Dysuria
CPT/HCPCS: 36415; 80053; 80061; 81003; 82306; 83036; 84443; 85025

== ENCOUNTER → 2022-10-18 13:36 | Outpatient (BNVA) | payer MEDICARE, SELFPAY | PROVIDERS: PCP Internal Medicine; Visit Provider Internal Medicine ==

== ENCOUNTER → 2022-10-25 11:13 | Outpatient (BNVA) | payer MEDICARE, SELFPAY | PROVIDERS: PCP Internal Medicine; Visit Provider Internal Medicine ==

== ENCOUNTER → 2022-11-01 15:53 | Outpatient (BNVA) | payer MEDICARE, SELFPAY | PROVIDERS: PCP Internal Medicine; Visit Provider Internal Medicine ==

== ENCOUNTER → 2022-11-11 12:10 | Outpatient (BNVA) | payer MEDICARE, SELFPAY | PROVIDERS: PCP Internal Medicine; Visit Provider Internal Medicine ==

== ENCOUNTER 2022-11-25 08:50 | Outpatient (AMB) | payer MEDICARE, SELFPAY ==
--- NOTE | 2022-11-25 08:52 | MHC.OFFVISCO ---
Intake Intake Visit Reasons: Anticoagulation Allergies No Known Allergies [NO KNOWN ALLERGIES] Allergy (Unknown, Verified 11/25/22 08:51) UNKNOWN Medication List - Last Reconciled 11/25/22 by Bren Gale RN [ADULT BRIEFS As directed] [ADULT WIPES As directed] aspirin (Adult Low Dose Aspirin) 81 mg PO DAILY@1500 atorvastatin 40 mg PO BEDTIME calcium carbonate-vitamin D3 600 mg-5 mcg (200 unit) 1 tab PO DAILY digoxin 125 mcg PO SUMOWEFRSA@0900 90 days febuxostat 40 mg PO Q48H ferrous sulfate 325 mg PO DAILY@1500 folic acid 1 mg PO DAILY food supplemt, lactose-reduced (Ensure oral liquid) Drink 1 can orally 3 times a day with meals; 30 days furosemide 10 mg PO DAILY@1500 furosemide 40 mg PO DAILY [HINGED KNEE BRACE (left) As directed] metoprolol succinate ER 50 mg See Protocol PO TID 90 days multivitamin 1 tab PO DAILY nicotine 1 patch transdermal DAILY@1500 potassium chloride ER 20 mEq PO DAILY 60 days valsartan 40 mg PO DAILY vit C,Y-Ze-vyobd-lutein-zeaxan 250-90-40-1 mg (PreserVision AREDS-2) 1 tab PO DAILY warfarin See Protocol 2 mg orally WED SAT/ 1MG X 5 DAYS; Nursing Note INR OF 2.0 RECEIVED FROM [facility]. CONTINUE PRESENT DOSE AND RETEST IN 2 WEEKS. 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
--- NOTE | 2022-11-25 08:56 | MHC.OFFVISCO ---
Intake Intake Visit Reasons: Anticoagulation Allergies No Known Allergies [NO KNOWN ALLERGIES] Allergy (Unknown, Verified 11/25/22 08:51) UNKNOWN Medication List - Last Reconciled 11/25/22 by Bren Gale RN [ADULT BRIEFS As directed] [ADULT WIPES As directed] aspirin (Adult Low Dose Aspirin) 81 mg PO DAILY@1500 atorvastatin 40 mg PO BEDTIME calcium carbonate-vitamin D3 600 mg-5 mcg (200 unit) 1 tab PO DAILY digoxin 125 mcg PO SUMOWEFRSA@0900 90 days febuxostat 40 mg PO Q48H ferrous sulfate 325 mg PO DAILY@1500 folic acid 1 mg PO DAILY food supplemt, lactose-reduced (Ensure oral liquid) Drink 1 can orally 3 times a day with meals; 30 days furosemide 10 mg PO DAILY@1500 furosemide 40 mg PO DAILY [HINGED KNEE BRACE (left) As directed] metoprolol succinate ER 50 mg See Protocol PO TID 90 days multivitamin 1 tab PO DAILY nicotine 1 patch transdermal DAILY@1500 potassium chloride ER 20 mEq PO DAILY 60 days valsartan 40 mg PO DAILY vit C,O-Vl-esmok-lutein-zeaxan 250-90-40-1 mg (PreserVision AREDS-2) 1 tab PO DAILY warfarin See Protocol 2 mg orally WED SAT/ 1MG X 5 DAYS; Nursing Note INR OF 2.0 RECEIVED FROM [facility]) CONTINUE PRESENT DOSE AND RETEST IN 2 WEEKS. 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
== END 2022-11-25 08:57 | disposition home or self-care (01) ==
LOC: HO.ACS 08:50
PROVIDERS: PCP Internal Medicine; Visit Provider Internal Medicine
DX: Z79.01 Long term (current) use of anticoagulants (principal)

== ENCOUNTER → 2022-11-25 08:50 | Outpatient (BNVA) | payer MEDICARE, SELFPAY | PROVIDERS: PCP Internal Medicine; Visit Provider Internal Medicine | CPT/HCPCS: 99211 ==

== ENCOUNTER → 2022-12-09 09:58 | Outpatient (BNVA) | payer MEDICARE, SELFPAY | PROVIDERS: PCP Internal Medicine; Visit Provider Internal Medicine ==

== ENCOUNTER → 2022-12-23 10:33 | Outpatient (BNVA) | payer MEDICARE, SELFPAY | PROVIDERS: PCP Internal Medicine; Visit Provider Internal Medicine ==

== ENCOUNTER 2022-12-30 00:08 | Inpatient (IN) | payer MEDICARE, SELFPAY ==
[2022-12-30] VITALS (9 sets, daily range): BP systolic 111–137; BP diastolic 42–73; PULSE 66–117; RESP 18–25; TEMP 36.2–37.1; O2SAT 85–98; BMI 16.7; BMI 21.2
--- NOTE | ~2022-12-30 | XR_ITS ---
EXAMINATION: XR CHEST CLINICAL INFORMATION: Shortness of breath COMPARISON: 03/18/2022 TECHNIQUE: Frontal view of the chest was obtained. FINDINGS: Lung volumes are symmetric. Redemonstrated right upper lobe mass seen in better detail on prior CT, with some increase in size since 03/18/2022. Mild patchy opacity is noted at the right lung base. No evidence of pneumothorax or significant pleural effusion. Cardiac silhouette appears mildly enlarged for technique. No acute osseous findings are seen. XR/XR chest 1V IMPRESSION: Mild patchy right basilar opacity which may reflect developing consolidation in the proper clinical setting. Redemonstrated right upper lobe mass, increased in size from 03/18/2022.
--- NOTE | ~2022-12-30 | XR_ITS ---
EXAMINATION: XR TIBIA AND FIBULA, LEFT CLINICAL INFORMATION: Left leg pain COMPARISON: None available. TECHNIQUE: AP and lateral views of the left tibia and fibula were obtained, 4 total. FINDINGS: The bones are diffusely demineralized. Extensive atherosclerotic vascular calcifications. Possible trace knee joint effusion. Advanced degenerative changes in the knee most notable in the lateral compartment with joint space narrowing and marginal osteophytes. No displaced fracture of the tibia/fibula identified. XR/XR tibia fibula LT 2V IMPRESSION: Advanced degenerative changes left knee. Diffuse bony demineralization. No displaced fracture of the tibia/fibula identified. Additional imaging with CT scan or MRI should be considered for better visualization as these modalities are much more sensitive for detection of fracture or other underlying pathology.
--- NOTE | ~2022-12-30 | CT_ITS ---
EXAMINATION: CT HEAD WITHOUT CONTRAST CLINICAL INFORMATION: Slurred speech, headache numbness. COMPARISON: Head CT scan dated 07/10/2020. TECHNIQUE: Contiguous axial imaging was performed from the skull base to vertex without intravenous administration of contrast. Coronal and sagittal reformatted images were obtained. This CT examination was performed using dose optimization techniques as appropriate, variously including the following: *Automated exposure control *Adjustment of mA and/or kV according to patient size (this includes techniques or standardized protocols for targeted exams where dose is matched to indication/reason for exam; i.e. extremities or head) *Use of iterative reconstruction technique DLP: 936 mGy-cm FINDINGS: There is mild widening of the cortical sulci and associated ventriculomegaly. The lateral ventricles are symmetrical. The third and fourth ventricles are in their normal midline position. The basilar and prepontine cisterns are unremarkable. Mild periventricular microvascular changes are again seen There is no acute intra or extracerebral abnormality. There is no mass effect or midline shift. Prior right frontal temporal craniotomy changes. Underlying metallic clips with associated artifact are seen without significant change. The orbits are intact. The paranasal sinuses show small retention cysts versus inflammatory polyps in the maxillary sinuses bilaterally. No air-fluid levels. The mastoid air cells are clear. CT/CT head/brain wo IV con IMPRESSION: No acute intracranial pathology.
--- NOTE | ~2022-12-30 | US_ITS ---
EXAMINATION: US VENOUS ULTRASOUND WITH DOPPLER LOWER EXTREMITY, BILATERAL CLINICAL INFORMATION: Edema, pain bilateral legs. COMPARISON: None available. TECHNIQUE: Ultrasound of the deep veins is performed from the hip to the calf with compression sonography and color and pulse Doppler assessment. Spectral analysis with color-flow imaging is performed. FINDINGS: RIGHT: There is normal venous compression and respiratory variation and augmented flow. The visualized common femoral vein, superficial femoral vein, profunda femoral vein, popliteal vein, and the trifurcation region shows no evidence of deep venous thrombosis. There is no significant popliteal fossa cyst. Right peroneal vein was not visualized. LEFT: There is normal venous compression and respiratory variation and augmented flow. The visualized common femoral vein, superficial femoral vein, profunda femoral vein, popliteal vein, and the trifurcation region shows no evidence of deep venous thrombosis. There is no significant popliteal fossa cyst. If the patient's symptoms persist, followup ultrasound in 5 days 7 days might be of value to exclude proximal propagation from a non-visualized calf vein. US/US venous duplex LE BI IMPRESSION: No DVT demonstrated in the bilateral lower extremities. Right peroneal vein was not visualized.
--- NOTE | 2022-12-30 00:18 | ECG_ITS ---
Test Reason : shortness of breath Blood Pressure : / mmHG Vent. Rate : 086 BPM Atrial Rate : 000 BPM P-R Int : 000 ms QRS Dur : 152 ms QT Int : 372 ms P-R-T Axes : 000 263 028 degrees QTc Int : 445 ms Atrial fibrillation Right bundle branch block Septal infarct , age undetermined Abnormal ECG When compared with ECG of 15-AUG-2022 10:02, Septal infarct is now Present Referred By: Denisse Quinn Electronically Signed By:JOSE MIGUEL PARSONS
--- NOTE | 2022-12-30 00:28 | ED_ITS ---
HPI - General Adult General Chief complaint: Upper Respiratory Symptoms Stated complaint: PROD COUGH,SOB 95% @2LPM,WEAK,PER EMS Time Seen by Provider: 12/30/22 00:12 Source: patient and EMS Mode of arrival: EMS Limitations: no limitations History of Present Illness HPI narrative: Patient comes emergency room via ambulance from home. Patient lives by himself. Patient known to have atrial fibrillation on Eliquis, COPD, stage IV lung cancer and CHF. Patient states that today he called EMS because he has been co ughing for 4 days and also has been feeling very weak. Patient states that today he was trying to get up to the bathroom and he could not do it by himself, had to wait for EMS to assist him. Related Data Home Medications Medication Instructions Recorded Confirmed calcium carbonate 600 mg-vitamin 1 tab PO DAILY 07/10/20 12/09/22 D3 5 mcg (200 unit) tablet multivitamin 1 tab PO DAILY 07/10/20 12/09/22 nicotine 14 mg/24 hr daily 1 patch transdermal DAILY@1500 07/10/20 12/09/22 transdermal patch aspirin 81 mg tablet,delayed 81 mg PO DAILY@1500 09/22/21 12/09/22 release (Adult Low Dose Aspirin) valsartan 40 mg tablet 40 mg PO DAILY 09/22/21 12/09/22 ferrous sulfate 325 mg (65 mg 325 mg PO DAILY@1500 03/17/22 12/09/22 iron) tablet vit C 250 mg-vit E 90 mg-zinc 40 1 tab PO DAILY 03/17/22 12/09/22 mg-copper 1 [id number] capsule (PreserVision AREDS-2) furosemide 20 mg tablet 10 mg PO DAILY@1500 08/16/22 12/09/22 furosemide 40 mg tablet 40 mg PO DAILY 08/16/22 12/09/22 Previous Rx's Medication Instructions Recorded HINGED KNEE BRACE (left) #1 ea 08/31/21 potassium chloride 20 mEq 20 meq PO DAILY 60 days #60 tabs 06/06/22 tablet,extended release(part/cryst) warfarin 1 mg tablet 2 mg PO .COMPLEX #90 tabs 07/03/22 metoprolol succinate 50 mg 50 mg PO TID 90 days #270 tabs 07/30/22 tablet,extended release 24 hr digoxin 125 mcg (0.125 mg) tablet 125 mcg PO SUMOWEFRSA@0900 90 days 09/19/22 #65 tabs ADULT BRIEFS #100 ea 10/08/22 ADULT WIPES #100 ea 10/08/22 food supplemt, lactose-reduced See Rx Instructions .Route 10/08/22 (Ensure oral liquid) .COMPLEX 30 days #90 multiple units atorvastatin 40 mg tablet 40 mg PO BEDTIME #90 tabs 11/07/22 febuxostat 40 mg tablet 40 mg PO DAILY PRN for gout pain 12/07/22 30 days #30 tabs folic acid 1 mg tablet 1 mg PO DAILY #90 tabs 12/17/22 Allergies Allergy/AdvReac Type Severity Reaction Status Date / Time No Known Allergies Allergy Unknown UNKNOWN Verified 12/09/22 09:58 [NO KNOWN ALLERGIES] Review of Systems Review of Systems: Constitutional : No Weight loss, No Fever, No Chills, No Night Sweats, No Fatigue, No Malaise ENT/Mouth : No Hearing loss, No Ear Pain, No Nasal Congestion, No Sinus Pain, No Hoarseness, No sore throat, No Rhinorrhea, No Swallowing Difficulty Eyes: No Eye Pain, No Swelling, No Redness, No Foreign Body, No Discharge, No Vision Changes Cardiovascular : No Chest Pain, No SOB, complaining of Dyspnea on Exertion, No Orthopnea, No Edema, No Palpitations Respiratory : Patient complaining of cough with sputum production, no wheezing, mild shortness of breath Gastrointestinal : No Nausea, No Vomiting, No Diarrhea, No Constipation, No abdominal Pain, No Hematochezia, No Melena Genitourinary : no irregular bleeding, No Dysuria, No Urinary Frequency, No Hematuria, No Urinary Incontinence, No Urgency, No Flank Pain, No Urinary Flow Changes, No Hesitancy Musculoskeletal : No joint pain, No Myalgias, No Joint Swelling Skin : No Skin Lesions, No rash Neuro : No Weakness, No Numbness, No Paresthesias, No Loss of Consciousness, No Dizziness, No Headache Psych : No Anxiety/Panic, No Depression, No SI/HI/AH/VH, No Social Issues, Heme/Lymph: No Bruising, No Bleeding,No Lymphadenopathy Endocrine : No Polyuria, No Polydipsia, No Temperature Intolerance PMFSH Past Medical History Medical History Anemia Atrial fibrillation with rapid ventricular response Back pain Benign essential hypertension Bilateral lower extremity edema CAD (coronary artery disease) Cancer of upper lobe of right lung (~2013) Chronic atrial fibrillation Congestive heart failure COPD (chronic obstructive pulmonary disease) Gout Heart failure with reduced ejection fraction HLD (hyperlipidemia) Lumbar degenerative disc disease Neuropathy Osteoarthritis Osteoarthritis of knees, bilateral PAD (peripheral artery disease) Physical deconditioning Recurrent non-small cell lung cancer Smoker Type 2 diabetes mellitus with other diabetic kidney complication Vitamin D deficiency Wears dentures Surgical History History of angioplasty (~12/2020) History of back surgery History of brain surgery (~2003) History of bronchoscopy (~2020) History of cardiac cath (~02/2016) History of colonoscopy (~01/2001) History of lung biopsy History of lung surgery (~07/2013) History of lung surgery (~2019) History of partial colectomy (~01/2001) History of right knee surgery (~09/2005) History of thoracentesis (~09/2019) Family History Family History Mother Heart disease Father Heart disease Social History Social History Household Members: None Housing: Condominium Are you a primary health care marketing manager to a significant other at home: No Do you presently have visiting nurse or other home services: No Alcohol intake: unknown Patient Tobacco Use Status: Current everyday Tobacco user Tobacco use type: Cigarette Cigarette Packs Per Day: 0.5 Cigarettes Per Day: 10 Years Smoked: 50 Second Hand Smoke Exposure: No Advance Directives: Yes Advance Directives on File: Yes Advance Directives Date on File: 10/05/21 service: No Current occupational status: retired Cognitive needs: Yes (cane) Hearing needs: No Vision needs: Yes Physical Exam ED Vital Signs: Vital Signs - 24 hr 12/30/22 00:26 12/30/22 01:42 Temperature 98.8 F Pulse Rate 75 77 Respiratory Rate 18 18 Blood Pressure 131/67 Pulse Oximetry 93 Oxygen Delivery Method Nasal Cannula Oxygen Flow Rate 2 BMI result Body Mass Index 16.7 Const Other: Appearance: Alert. Oriented X3. No acute distress. Cachectic, disheveled, has strong odor of urine possibly UTI Eyes: Pupils equal, round and reactive to light. ENT: Pharynx normal. Neck: Normal inspection. Neck supple. No lymph nodes noted. No crepitus CVS: Normal heart rate and rhythm. Pulses normal. Normal S1 and S2 Respiratory: No respiratory distress. Speaking full sentences, continuously coughing with significant sputum production Abdomen: Soft and nontender. No rigidity. No distention. Skin: Skin warm and dry. Normal skin color. Normal skin turgor. Extremities: +3 pitting edema bilaterally, No Lacerations. No Rash Neuro: Oriented X 3. No motor deficit. No sensory deficit. Moving all extremities. No slurred speech. CN 2 through 12 grossly intact Psych: calm, cooperative, normal affect Course Course Course Narrative: -patient prophylactically receiving some IV ceftriaxone and azithromycin for possible pneumonia/copd and also to cover for possible UTI -all of patient's labs and imaging are pending -patient has +3 pitting edema bilaterally, at this time, will be conservative with patient's fluids, blood pressure 131/67, no fever, no need for IV fluid bolus at this time Medications Administered Discontinued Medications Generic Name Dose Route Start Last Admin Trade Name Freq PRN Reason Stop Dose Admin Albuterol Sulfate 10 mg 12/30/22 01:31 12/30/22 01:39 Albuterol Sulfate (0.083%) 2.5 Mg/3 Ml Vial.Neb INHALE 12/30/22 01:32 10 mg ONCE ONE Administration Azithromycin 500 mg/ Sodium 250 mls @ 125 mls/hr 12/30/22 00:22 12/30/22 01:52 Chloride IV 12/30/22 02:21 125 mls/hr ONCE ONE Administration Ceftriaxone Sodium 1 gm/ 50 mls @ 100 mls/hr 12/30/22 00:22 12/30/22 01:17 Sodium Chloride IV 12/30/22 00:51 Infused ONCE ONE Infusion Sodium Chloride 1,000 mls @ 999 mls/hr 12/30/22 00:28 12/30/22 02:48 Ns IVCONT 12/30/22 01:28 Infused .Q1H1M ONE Infusion Methylprednisolone Sodium Succinate 125 mg 12/30/22 01:37 12/30/22 01:52 Methylprednisolone Sod Succ 125 Mg/2 Ml Vial IVPUSH 12/30/22 01:38 125 mg ONCE ONE Administration Medical Decision Making Medical Decision Making [facility] Narrative: -mental petition of chest x-ray, possible right lower lobe pneumonia, multiple masses seen on x-ray, patient known to have States for lung cancer -radiology report: Mild patchy right basilar opacity which may reflect an overlapping consolidation, redemonstration of right upper lobe mass -patient has already been treated with IV fluids, sepsis not suspectedfrom time of arrival to 01:40, patient already received fluids, ceftriaxone and azithromycin. -on room air, patient's oxygen saturation is 93-94%, with minimal exertion, O2 drops to the low 80s. Patient is now on 2 L nasal cannula. -patient's chemistry shows dia -urinalysis pending, already covered for UTI with ceftriaxone -patient will be admitted to the hospital service, discussed the patient with Dr. Ha Differential Diagnosis Differential Diagnoses: The differential diagnosis associated with the presentation includes (Pneumonia, COPD, asthma, worsening lung cancer tumor burden) Admission/Observation Consideration of admission/observation: Escalation of care including admission/observation considered Consult Healthcare Provider Management of the patient was discussed with: Hospitalist Lab Data [facility] Lab Attestation statement: I reviewed the patient's lab results. 12/30/22 00:42 12/30/22 00:42 Labs: Lab Results 12/30/22 12/30/22 12/30/22 Range/Units 00:42 00:42 00:42 WBC 6.3 (4.8-10.8) X10*3/uL RBC 3.40 L (4.60-5.80) X10*6/uL Hgb 11.2 L (14.0-18.0) g/dl Hct 35.5 L (42.0-52.0) % MCV 104.4 H (80.0-98.0) fL MCH 32.9 (27.0-33.0) pg MCHC 31.5 (31.0-36.0) g/dl RDW 15.6 (11.0-16.0) % Plt Count 218 (160-400) X10*3/uL MPV 11.7 (9.4-12.4) fL Immature Gran % (Auto) 1.1 H (0.0-0.4) % Neut % (Auto) 72.9 (45-73) % Lymph % (Auto) 12.3 L (20-40) % [place] % (Auto) 11.9 H (2-11) % Eos % (Auto) 1.3 (0-4) % Baso % (Auto) 0.5 (0-2) % Lymph # (Auto) 0.8 L (1.2-4.9) X10*3/uL [place] # (Auto) 0.8 (0.1-1.2) X10*3/uL Eos # (Auto) 0.1 (0.0-0.4) X10*3/uL Baso # (Auto) 0.0 (0.0-0.2) X10*3/uL Abs Immat Gran (auto) 0.07 H (0.00-0.03) X10*3/uL Absolute Neuts (auto) 4.6 (2.0-8.3) x10*3/uL Absolute Nucleated RBC 0.000 (0.0-0.012) X10*3/uL Nucleated RBC % (auto) 0.0 (0.0-0.2) /100WBC VBG pH (7.32-7.43) VBG pCO2 mmHg VBG pO2 mmHg VBG HCO3 (22-26) mmol/L VBG O2 Saturation % VBG Base Excess mmol/L Sodium (135-145) mmol/L Potassium (3.3-5.1) mmol/L Chloride (96-108) mmol/L Carbon Dioxide (22-29) mmol/L Anion Gap (12-20) BUN (9-16) mg/dL Creatinine (0.5-1.4) mg/dL Estim Creat Clear Calc Estimated GFR Random Glucose (60-115) mg/dL Lactic Acid (0.5-2.0) mmol/L Calcium (8.4-10.2) mg/dL Total Bilirubin (0.0-1.0) mg/dL Direct Bilirubin (0.0-0.5) mg/dL AST (5-37) U/L ALT (0-40) U/L Alkaline Phosphatase (39-117) U/L Troponin I High Sens (<3.5-35.0) ng/L B-Natriuretic Peptide 686 H (<100) pg/mL Total Protein (6.5-8.0) g/dL Albumin (3.5-5.0) g/dL Lipase (8-78) U/L Influenza Type A (PCR) NEGATIVE (Negative) Influenza Type B (PCR) NEGATIVE (Negative) RSV RNA Qual (PCR) NEGATIVE (Negative) SARS-CoV-2 RNA (RT-PCR) NEGATIVE (Negative) 12/30/22 12/30/22 12/30/22 Range/Units 00:43 02:13 02:13 WBC (4.8-10.8) X10*3/uL RBC (4.60-5.80) X10*6/uL Hgb (14.0-18.0) g/dl Hct (42.0-52.0) % MCV (80.0-98.0) fL MCH (27.0-33.0) pg MCHC (31.0-36.0) g/dl RDW (11.0-16.0) % Plt Count (160-400) X10*3/uL MPV (9.4-12.4) fL Immature Gran % (Auto) (0.0-0.4) % Neut % (Auto) (45-73) % Lymph % (Auto) (20-40) % Mes[place] % (Auto) (2-11) % Eos % (Auto) (0-4) % Baso % (Auto) (0-2) % Lymph # (Auto) (1.2-4.9) X10*3/uL [place] # (Auto) (0.1-1.2) X10*3/uL Eos # (Auto) (0.0-0.4) X10*3/uL Baso # (Auto) (0.0-0.2) X10*3/uL Abs Immat Gran (auto) (0.00-0.03) X10*3/uL Absolute Neuts (auto) (2.0-8.3) x10*3/uL Absolute Nucleated RBC (0.0-0.012) X10*3/uL Nucleated RBC % (auto) (0.0-0.2) /100WBC VBG pH (7.32-7.43) VBG pCO2 mmHg VBG pO2 mmHg VBG HCO3 (22-26) mmol/L VBG O2 Saturation % VBG Base Excess mmol/L Sodium 147 H (135-145) mmol/L Potassium 5.0 (3.3-5.1) mmol/L Chloride 113 H (96-108) mmol/L Carbon Dioxide 29 (22-29) mmol/L Anion Gap 10 L (12-20) BUN 72 H (9-16) mg/dL Creatinine 1.63 H (0.5-1.4) mg/dL Estim Creat Clear Calc 28.6 Estimated GFR 41 Random Glucose 120 H (60-115) mg/dL Lactic Acid 0.8 (0.5-2.0) mmol/L Calcium 8.7 (8.4-10.2) mg/dL Total Bilirubin 0.4 (0.0-1.0) mg/dL Direct Bilirubin 0.2 (0.0-0.5) mg/dL AST 25 (5-37) U/L ALT 24 (0-40) U/L Alkaline Phosphatase 81 (39-117) U/L Troponin I High Sens 14.7 (<3.5-35.0) ng/L B-Natriuretic Peptide (<100) pg/mL Total Protein 6.0 L (6.5-8.0) g/dL Albumin 3.0 L (3.5-5.0) g/dL Lipase 18 (8-78) U/L Influenza Type A (PCR) (Negative) Influenza Type B (PCR) (Negative) RSV RNA Qual (PCR) (Negative) SARS-CoV-2 RNA (RT-PCR) (Negative) 12/30/22 Range/Units 02:18 WBC (4.8-10.8) X10*3/uL RBC (4.60-5.80) X10*6/uL Hgb (14.0-18.0) g/dl Hct (42.0-52.0) % MCV (80.0-98.0) fL MCH (27.0-33.0) pg MCHC (31.0-36.0) g/dl RDW (11.0-16.0) % Plt Count (160-400) X10*3/uL MPV (9.4-12.4) fL Immature Gran % (Auto) (0.0-0.4) % Neut % (Auto) (45-73) % Lymph % (Auto) (20-40) % [place] % (Auto) (2-11) % Eos % (Auto) (0-4) % Baso % (Auto) (0-2) % Lymph # (Auto) (1.2-4.9) X10*3/uL [place] # (Auto) (0.1-1.2) X10*3/uL Eos # (Auto) (0.0-0.4) X10*3/uL Baso # (Auto) (0.0-0.2) X10*3/uL Abs Immat Gran (auto) (0.00-0.03) X10*3/uL Absolute Neuts (auto) (2.0-8.3) x10*3/uL Absolute Nucleated RBC (0.0-0.012) X10*3/uL Nucleated RBC % (auto) (0.0-0.2) /100WBC VBG pH 7.33 (7.32-7.43) VBG pCO2 58 mmHg VBG pO2 39 mmHg VBG HCO3 31 H (22-26) mmol/L VBG O2 Saturation 60.0 % VBG Base Excess 4.0 mmol/L Sodium (135-145) mmol/L Potassium (3.3-5.1) mmol/L Chloride (96-108) mmol/L Carbon Dioxide (22-29) mmol/L Anion Gap (12-20) BUN (9-16) mg/dL Creatinine (0.5-1.4) mg/dL Estim Creat Clear Calc Estimated GFR Random Glucose (60-115) mg/dL Lactic Acid (0.5-2.0) mmol/L Calcium (8.4-10.2) mg/dL Total Bilirubin (0.0-1.0) mg/dL Direct Bilirubin (0.0-0.5) mg/dL AST (5-37) U/L ALT (0-40) U/L Alkaline Phosphatase (39-117) U/L Troponin I High Sens (<3.5-35.0) ng/L B-Natriuretic Peptide (<100) pg/mL Total Protein (6.5-8.0) g/dL Albumin (3.5-5.0) g/dL Lipase (8-78) U/L Influenza Type A (PCR) (Negative) Influenza Type B (PCR) (Negative) RSV RNA Qual (PCR) (Negative) SARS-CoV-2 RNA (RT-PCR) (Negative) Independent Interpretation I performed an independent interpretation of an: Plain X-Ray Radiology Impression Discussion of test interpretation with radiology: I have reviewed the radiologist's reading. Radiologist Impression: INDINGS: Lung volumes are symmetric. Redemonstrated right upper lobe mass seen in better detail on prior CT, with some increase in size since 03/18/2022. Mild patchy opacity is noted at the right lung base. No evidence of pneumothorax or significant pleural effusion. Cardiac silhouette appears mildly enlarged for technique. No acute osseous findings are seen. XR/XR chest 1V IMPRESSION: Mild patchy right basilar opacity which may reflect developing consolidation in the proper clinical setting. Redemonstrated right upper lobe mass, increased in size from 03/18/2022. External Record Review External record reviewed: Inpatient record (Patient was here in March of 2022, patient had both, CHF and COPD exacerbation.) Chronic Conditions Patient?s care impacted by: Cancer and Other (CHF, COPD) Critical Care Time Critical Care Time Critical Care Time: Yes Total Critical Care Time: 75 Attestation: I have personally provided critical care time. Time includes review of lab data, radiology results, discussion with consultants, and monitoring for potential decompensation. Intervention performed as documented. Discharge Plan Discharge Clinical Impression: Pneumonia, Acute kidney injury, Weakness Patient Disposition: Admitted As Inpatient Prescriptions: No Action warfarin 1 mg tablet 2 mg PO .COMPLEX Qty: 90 3RF Protocol: Dose Management Condition: Friday (Week One) Dose/Route: 1 mg Instruction: 1 x 1 mg tablet Condition: Friday Dose/Route: 1 mg Instruction: 1 x 1 mg tablet Condition: Friday Dose/Route: 2 mg Instruction: 2 x 1 mg tablets Condition: Friday Dose/Route: 1 mg Instruction: 1 x 1 mg tablet Condition: Dose/Route: 1 mg Instruction: 1 x 1 mg tablet Condition: Friday Dose/Route: 1 mg Instruction: 1 x 1 mg tablet Condition: Friday Dose/Route: 1 mg Instruction: 1 x 1 mg tablet Condition: Friday (Week Two) Dose/Route: 1 mg Instruction: 1 x 1 mg tablet Condition: Friday Dose/Route: 1 mg Instruction: 1 x 1 mg tablet Condition: Friday Dose/Route: 2 mg Instruction: 2 x 1 mg tablets Condition: Friday Dose/Route: 1 mg Instruction: 1 x 1 mg tablet Condition: Dose/Route: 1 mg Instruction: 1 x 1 mg tablet Condition: Friday Dose/Route: 1 mg Instruction: 1 x 1 mg tablet Condition: Friday Dose/Route: 1 mg Instruction: 1 x 1 mg tablet Protocol Text: Adjustment Start Date: Friday12/23/22 INR Value: 3.1 INR Date: 12/23/22 Recheck Date: 12/30/22 Additional Instructions: REVIEW FOOD LIST - [place] TODAY CHK INR 1 WEEK Rx Instructions: 2 mg orally WED SAT/ 1MG X 5 DAYS; metoprolol succinate 50 mg tablet extended release 24 hr 50 mg PO TID 90 Days Qty: 270 3RF Protocol: Hold for SBP/HR < HOLD for SBP < : 90 HOLD for HR < : 60 digoxin 125 mcg (0.125 mg) tablet 125 mcg PO SUMOWEFRSA@0900 90 Days Qty: 65 3RF (DME) ADULT WIPES See Rx Instructions .Route .MEDSUPPLY Qty: 100 12RF Rx Instructions: As directed (DME) ADULT BRIEFS See Rx Instructions .Route .MEDSUPPLY Qty: 100 12RF Rx Instructions: As directed Ensure Liquid See Rx Instructions .ROUTE .COMPLEX 30 Days Qty: 90 12RF Rx Instructions: Drink 1 can orally 3 times a day with meals; atorvastatin 40 mg tablet 40 mg PO BEDTIME Qty: 90 0RF febuxostat 40 mg tablet 40 mg PO DAILY PRN (Reason: for gout pain) 30 Days Qty: 30 5RF folic acid 1 mg tablet 1 mg PO DAILY Qty: 90 0RF multivitamin Tablet 1 tab PO DAILY nicotine 14 mg/24 hr Patch 24 Hour 1 patch TRANSDERMAL DAILY@1500 calcium carbonate-vitamin D3 600 mg(1,500mg) -200 unit Tablet 1 tab PO DAILY ferrous sulfate 325 mg (65 mg iron) Tablet 325 mg PO DAILY@1500 PreserVision AREDS-2 250-90-40-1 mg capsule 1 tab PO DAILY furosemide 20 mg tablet 10 mg PO DAILY@1500 furosemide 40 mg tablet 40 mg PO DAILY Rx Instructions: 40 mg orally 1 tablet in am and 1/2 tablet at 3 PM daily (DME) HINGED KNEE BRACE (left) See Rx Instructions .Route .MEDSUPPLY Qty: 1 0RF Rx Instructions: As directed valsartan 40 mg tablet 40 mg PO DAILY Hold Instructions: Resume on 03/25/22. aspirin [Adult Low Dose Aspirin] 81 mg tablet,delayed release (DR/EC) 81 mg PO DAILY@1500 potassium chloride 20 mEq tablet,ER particles/crystals 20 meq PO DAILY 60 Days Qty: 60 3RF
[2022-12-30] MEDS: cefTRIAXone sodium 1 GM in 0.9 % Sodium Chloride 50 ML IV (00:47)
[2022-12-30] MEDS: 0.9 % Sodium Chloride 1,000 ML 999 ML IVCONT (00:47)
[2022-12-30 00:51] LABS: MANUAL DIFF FLAG NO
[2022-12-30 00:57] LABS: Basophils Percent Auto 0.5 % (0-2); Eosinophils Absolute Auto 0.1 X10*3/uL (0.0-0.4); Eosinophils Percent Auto 1.3 % (0-4); Hematocrit 35.5 % (42.0-52.0); Hemoglobin 11.2 g/dl (14.0-18.0); Imm Gran Abs Auto 0.07 X10*3/uL (0.00-0.03); Imm Gran Pct Auto 1.1 % (0.0-0.4); Lymphocytes Absolute Auto 0.8 X10*3/uL (1.2-4.9); Lymphocytes Percent Auto 12.3 % (20-40); Mean Corpuscular HGB Conc 31.5 g/dl (31.0-36.0); Mean Corpuscular Hemoglobin 32.9 pg (27.0-33.0); Mean Corpuscular Volume 104.4 fL (80.0-98.0); Mean Platelet Volume 11.7 fL (9.4-12.4); Monocytes Absolute Auto 0.8 X10*3/uL (0.1-1.2); Monocytes Percent Auto 11.9 % (2-11); Neutrophils Absolute Auto 4.6 x10*3/uL (2.0-8.3); Neutrophils Percent Auto 72.9 % (45-73); Platelet Count 218 X10*3/uL (160-400); Red Cell Distribution Width 15.6 % (11.0-16.0); White Blood Count 6.3 X10*3/uL (4.8-10.8)
[2022-12-30 01:03] LABS: Lactic Acid 0.8 mmol/L (0.5-2.0)
[2022-12-30 01:14] LABS: B Type Natriuretic Peptide 686 pg/mL (<100)
[2022-12-30] MEDS: Albuterol Sulfate (0.083%) 2.5 MG/3 ML VIAL.NEB 10 MG INHALE (01:39)
[2022-12-30 01:49] LABS: Influenza A PCR NEGATIVE (Negative); Influenza B PCR NEGATIVE (Negative); Resp Syncy Virus RNA Qual PCR NEGATIVE (Negative); SARS COV2 PCR INHOUSE NEGATIVE (Negative)
[2022-12-30] MEDS: Azithromycin 500 MG in 0.9 % Sodium Chloride 250 ML 125 MG IV (01:52)
[2022-12-30] MEDS: methylPREDNISolone Sod Succ 125 MG/2 ML VIAL IVPUSH (01:52)
--- NOTE | 2022-12-30 01:59 | PC.NURSE ---
Medicated per Mar and Notified DEISY Bone, will continue to monitor.
[2022-12-30 02:25] LABS: VBG HCO3 31 mmol/L (22-26); VBG pCO2 58 mmHg; VBG pH 7.33 (7.32-7.43); VBG pO2 39 mmHg
[2022-12-30 02:30] LABS: Venous Blood Gas Refer to POC result
[2022-12-30 02:46] LABS: Alanine Aminotransferase 24 U/L (0-40); Alkaline Phosphatase 81 U/L (39-117); Anion Gap 10 (12-20); Aspartate Amino Transferase 25 U/L (5-37); Bilirubin Direct 0.2 mg/dL (0.0-0.5); Bilirubin Total 0.4 mg/dL (0.0-1.0); Blood Urea Nitrogen 72 mg/dL (9-16); Calcium 8.7 mg/dL (8.4-10.2); Carbon Dioxide 29 mmol/L (22-29); Chloride 113 mmol/L (96-108); Creatinine Clr Calc Pharmacy 28.6; Estimated Glomerular Filt Rate 41; Glucose Random 120 mg/dL (60-115); Lipase 18 U/L (8-78); Sodium 147 mmol/L (135-145)
[2022-12-30 02:50] LABS: Troponin-I High Sensitivity 14.7 ng/L (<3.5-35.0)
[2022-12-30 05:34] LABS: Appearance Urine Clear; Color Urine Yellow; Glucose Urine UA Negative (Negative); Leukocyte Esterase Urine Negative (Negative); Nitrite Urine Negative (Negative); Specific Gravity - Urine 1.015 (1.005-1.025); UMIC TRIGGER UACC YES; Urine Blood Negative (Negative); Urine Ketones Negative (Negative); Urine Protein 30 (1+) mg/dL (Neg-Trace)
[2022-12-30 05:35] LABS: MANUAL DIFF FLAG NO
[2022-12-30 05:39] LABS: Basophils Percent Auto 0.3 % (0-2); Eosinophils Percent Auto 0.5 % (0-4); Hematocrit 36.7 % (42.0-52.0); Hemoglobin 11.2 g/dl (14.0-18.0); Imm Gran Abs Auto 0.04 X10*3/uL (0.00-0.03); Imm Gran Pct Auto 0.5 % (0.0-0.4); Lymphocytes Absolute Auto 0.6 X10*3/uL (1.2-4.9); Lymphocytes Percent Auto 7.9 % (20-40); Mean Corpuscular HGB Conc 30.5 g/dl (31.0-36.0); Mean Corpuscular Hemoglobin 32.6 pg (27.0-33.0); Mean Corpuscular Volume 106.7 fL (80.0-98.0); Mean Platelet Volume 11.4 fL (9.4-12.4); Monocytes Absolute Auto 0.3 X10*3/uL (0.1-1.2); Monocytes Percent Auto 3.7 % (2-11); NRBC Pct Auto 0.3 /100WBC (0.0-0.2); Neutrophils Absolute Auto 6.9 x10*3/uL (2.0-8.3); Neutrophils Percent Auto 87.1 % (45-73); Platelet Count 209 X10*3/uL (160-400); Red Blood Count 3.44 X10*6/uL (4.60-5.80); Red Cell Distribution Width 15.5 % (11.0-16.0); White Blood Count 7.9 X10*3/uL (4.8-10.8)
--- NOTE | 2022-12-30 05:43 | PC.NURSE ---
Nurse to nurse report given to nurse Vigil. Pt going to room 363 and aware of plan of care.
[2022-12-30 05:53] LABS: Anion Gap 13 (12-20); Blood Urea Nitrogen 71 mg/dL (9-16); Carbon Dioxide 29 mmol/L (22-29); Chloride 111 mmol/L (96-108); Creatinine Clr Calc Pharmacy 28.2; Estimated Glomerular Filt Rate 40; Glucose Random 142 mg/dL (60-115); Potassium 4.8 mmol/L (3.3-5.1); Sodium 148 mmol/L (135-145)
[2022-12-30 05:59] LABS: Bacteria Urine None Seen (None Seen); Hyaline Casts Urine >20 /LPF (0-2); RBC Urine 0-2 /HPF (0-2); Squamous Epithelial Cell Urine 0-2 /HPF (0-2); WBC Urine 0-5 /HPF (0-5)
--- NOTE | 2022-12-30 06:14 | PM.IMHP ---
History of Present Illness Date of Service: 12/30/22 Chief Complaint: Weakness, cough and sputum production 82-year-old male past medical history of lung cancer, COPD, CHF with reduced ejection fraction, chronic AFib, HLD, PAD, presents to the hospital with reporting increased weakness, cough, sputum production. On the ED patient was found to be hypoxic 85%. Symptoms started about 4 days ago, with increased cough and sputum production. He also states that he has been feeling very weak and having difficulty even getting out of chair to get himself to the bathroom. Patient otherwise denies any chest pain, no palpitations, no abdominal pain nausea or vomiting, no diarrhea constipation, no urinary symptoms and no lower extremity edema On arrival to the ED patient hemodynamically stable satting the 85% on room air, Labs are significant for WBC count of 7.9, hemoglobin of 11.2, hematocrit 36.7, pH of 7.33, sodium of 148, creatinine of 1.6 6 3, BNP of 686, UA negative, Chest x-ray shows mild patchy basilar opacity which may reflect developing consolidation. Redemonstrated right upper lobe mass Patient started on IV antibiotics, Lasix and will be admitted further management Review of Systems Review of Systems: Yes all other systems are reviewed and are negative [facility] Medical History Anemia Atrial fibrillation with rapid ventricular response Back pain Benign essential hypertension Bilateral lower extremity edema CAD (coronary artery disease) Cancer of upper lobe of right lung (~2013) Chronic atrial fibrillation Congestive heart failure COPD (chronic obstructive pulmonary disease) Gout Heart failure with reduced ejection fraction HLD (hyperlipidemia) Lumbar degenerative disc disease Neuropathy Osteoarthritis Osteoarthritis of knees, bilateral PAD (peripheral artery disease) Physical deconditioning Recurrent non-small cell lung cancer Smoker Type 2 diabetes mellitus with other diabetic kidney complication Vitamin D deficiency Wears dentures Family History Mother Heart disease Father Heart disease Surgical History History of angioplasty (~12/2020) History of back surgery History of brain surgery (~2003) History of bronchoscopy (~2020) History of cardiac cath (~02/2016) History of colonoscopy (~01/2001) History of lung biopsy History of lung surgery (~07/2013) History of lung surgery (~2019) History of partial colectomy (~01/2001) History of right knee surgery (~09/2005) History of thoracentesis (~09/2019) Social History Household Members: None [facility] Are you a primary emergency care tech to a significant other at home: No Do you presently have visiting nurse or other home services: Yes Alcohol intake: unknown Patient Tobacco Use Status: Former Tobacco user Tobacco use type: Cigarette Cigarette Packs Per Day: 0.5 Cigarettes Per Day: 10 Years Smoked: 50 Second Hand Smoke Exposure: No Advance Directives Date on File: 10/05/21 service: No Current occupational status: retired Cognitive needs: Yes (cane) Hearing needs: No Vision needs: Yes Meds Allergies Allergy/AdvReac Type Severity Reaction Status Date / Time No Known Allergies Allergy Unknown UNKNOWN Verified 12/09/22 09:58 [NO KNOWN ALLERGIES] Active Medications: Current Medications Acetaminophen (Acetaminophen 325 Mg Tablet) 650 mg PO Q6H PRN PRN Reason: Pain, Mild (Pain Scale 1-3) Docusate Sodium (Docusate Sodium 100 Mg Capsule) 100 mg PO DAILY PRN PRN Reason: Constipation Enoxaparin Sodium (Enoxaparin Sodium 40 Mg/0.4 Ml Syringe) 40 mg SUBCUT Q24H RADHA Furosemide (Furosemide 40 Mg/4 Ml Vial) 40 mg IVPUSH BID@0900,1800 RADHA; Protocol Ceftriaxone Sodium 1 gm/ (Sodium Chloride) 50 mls @ 100 mls/hr IV Q24H RADHA Azithromycin 500 mg/ Sodium (Chloride) 250 mls @ 125 mls/hr IV Q24H RADHA Ondansetron HCl (Ondansetron Hcl 4 Mg/2 Ml Vial) 4 mg IVPUSH Q8H PRN PRN Reason: Nausea and Vomiting Sodium Chloride (0.9 % Sodium Chloride Flush 3 Ml Syringe) 3 ml IVFLUSH QSHIFT RADHA Home Medications Medication Instructions Recorded Confirmed Last Taken Type calcium carbonate 600 mg-vitamin 1 tab PO DAILY 07/10/20 12/09/22 03/16/22 History D3 5 mcg (200 unit) tablet multivitamin 1 tab PO DAILY 07/10/20 12/09/22 03/16/22 History nicotine 14 mg/24 hr daily 1 patch transdermal DAILY@1500 07/10/20 12/09/22 03/16/22 History transdermal patch aspirin 81 mg tablet,delayed 81 mg PO DAILY@1500 09/22/21 12/09/22 03/16/22 History release (Adult Low Dose Aspirin) valsartan 40 mg tablet 40 mg PO DAILY 09/22/21 12/09/22 03/16/22 History ferrous sulfate 325 mg (65 mg 325 mg PO DAILY@1500 03/17/22 12/09/22 03/16/22 History iron) tablet vit C 250 mg-vit E 90 mg-zinc 40 1 tab PO DAILY 03/17/22 12/09/22 03/16/22 History mg-copper 1 [id number] capsule (PreserVision AREDS-2) furosemide 20 mg tablet 10 mg PO DAILY@1500 08/16/22 12/09/22 Unknown History furosemide 40 mg tablet 40 mg PO DAILY 08/16/22 12/09/22 Unknown History Physical Exam Vital Signs and Narrative: Vital Signs: Last Vital Signs Temp 97.6 F 12/30/22 05:19 Pulse 117 H 12/30/22 05:19 Resp 25 H 12/30/22 05:19 BP 119/60 12/30/22 05:19 Pulse Ox 96 12/30/22 05:19 O2 Del Method Non-Rebreather [facility] 12/30/22 05:19 O2 Flow Rate 4 12/30/22 05:19 Oxygen Flow Rate 4 12/30/22 05:19 BMI result Body Mass Index 16.7 Const: General: cooperative and no acute distress Orientation/consciousness: patient oriented x3 Eyes: General: appearance normal, both eyes and all related structures Resp: Other: On non-rebreather, diffuse rhonchi Effort & Inspection: normal respiratory effort Cardio: Rate: regular rate Rhythm: regular rhythm GI: Palpation (GI): Soft to palpation Auscultation: normal bowel sounds Skin: General skin exam: no rashes or lesions noted Neuro: General: patient oriented x3 Cognition (Neuro): normal cognition Extrem: Other: No pitting edema General: Yes normal to inspection and Yes no pedal edema Results Labs 12/30/22 04:53 12/30/22 04:53 Labs: Laboratory Results - last 24 hr 12/30/22 12/30/22 12/30/22 00:42 00:42 00:42 MCV 104.4 H MCH 32.9 MCHC 31.5 RDW 15.6 Plt Count 218 MPV 11.7 Immature Gran % (Auto) 1.1 H Neut % (Auto) 72.9 Lymph % (Auto) 12.3 L [place] % (Auto) 11.9 H Eos % (Auto) 1.3 Baso % (Auto) 0.5 Lymph # (Auto) 0.8 L [place] # (Auto) 0.8 Eos # (Auto) 0.1 Baso # (Auto) 0.0 Abs Immat Gran (auto) 0.07 H Absolute Neuts (auto) 4.6 Absolute Nucleated RBC 0.000 Nucleated RBC % (auto) 0.0 VBG pH VBG pCO2 VBG pO2 VBG HCO3 VBG O2 Saturation VBG Base Excess Anion Gap Estim Creat Clear Calc Estimated GFR Random Glucose Lactic Acid Calcium Total Bilirubin Direct Bilirubin AST ALT Alkaline Phosphatase B-Natriuretic Peptide 686 H Total Protein Albumin Lipase Urine Color Urine Appearance Urine pH Ur Specific [place] Urine Protein Urine Glucose (UA) Urine Ketones Urine Blood Urine Nitrite Ur Leukocyte Esterase Influenza Type A (PCR) NEGATIVE Influenza Type B (PCR) NEGATIVE RSV RNA Qual (PCR) NEGATIVE SARS-CoV-2 RNA (RT-PCR) NEGATIVE 12/30/22 12/30/22 12/30/22 00:43 02:13 02:18 MCV MCH MCHC RDW Plt Count MPV Immature Gran % (Auto) Neut % (Auto) Lymph % (Auto) Store[place] % (Auto) Eos % (Auto) Baso % (Auto) Lymph # (Auto) [place] # (Auto) Eos # (Auto) Baso # (Auto) Abs Immat Gran (auto) Absolute Neuts (auto) Absolute Nucleated RBC Nucleated RBC % (auto) VBG pH 7.33 VBG pCO2 58 VBG pO2 39 VBG HCO3 31 H VBG O2 Saturation 60.0 VBG Base Excess 4.0 Anion Gap 10 L Estim Creat Clear Calc 28.6 Estimated GFR 41 Random Glucose 120 H Lactic Acid 0.8 Calcium 8.7 Total Bilirubin 0.4 Direct Bilirubin 0.2 AST 25 ALT 24 Alkaline Phosphatase 81 B-Natriuretic Peptide Total Protein 6.0 L Albumin 3.0 L Lipase 18 Urine Color Urine Appearance Urine pH Ur Specific [place] Urine Protein Urine Glucose (UA) Urine Ketones Urine Blood Urine Nitrite Ur Leukocyte Esterase Influenza Type A (PCR) Influenza Type B (PCR) RSV RNA Qual (PCR) SARS-CoV-2 RNA (RT-PCR) 12/30/22 12/30/22 12/30/22 04:53 04:53 05:29 MCV 106.7 H MCH 32.6 MCHC 30.5 L RDW 15.5 Plt Count 209 MPV 11.4 Immature Gran % (Auto) 0.5 H Neut % (Auto) 87.1 H Lymph % (Auto) 7.9 L [place] % (Auto) 3.7 Eos % (Auto) 0.5 Baso % (Auto) 0.3 Lymph # (Auto) 0.6 L [place] # (Auto) 0.3 Eos # (Auto) 0.0 Baso # (Auto) 0.0 Abs Immat Gran (auto) 0.04 H Absolute Neuts (auto) 6.9 Absolute Nucleated RBC 0.020 H Nucleated RBC % (auto) 0.3 H VBG pH VBG pCO2 VBG pO2 VBG HCO3 VBG O2 Saturation VBG Base Excess Anion Gap 13 Estim Creat Clear Calc 28.2 Estimated GFR 40 Random Glucose 142 H Lactic Acid Calcium 9.0 Total Bilirubin Direct Bilirubin AST ALT Alkaline Phosphatase B-Natriuretic Peptide Total Protein Albumin Lipase Urine Color Yellow Urine Appearance Clear Urine pH 5.0 Ur Specific [place] 1.015 Urine Protein 30 (1+) H Urine Glucose (UA) Negative Urine Ketones Negative Urine Blood Negative Urine Nitrite Negative Ur Leukocyte Esterase Negative Influenza Type A (PCR) Influenza Type B (PCR) RSV RNA Qual (PCR) SARS-CoV-2 RNA (RT-PCR) Imaging Radiologist's Impressions: Impressions Chest X-Ray 12/30/22 00:33 IMPRESSION: Mild patchy right basilar opacity which may reflect developing consolidation in the proper clinical setting. Redemonstrated right upper lobe mass, increased in size from 03/18/2022. Assessment and Plan (1) Community acquired pneumonia: Status: Acute (2) Acute kidney injury: Status: Acute (3) COPD exacerbation: Status: Acute (4) Acute respiratory failure with hypoxia: Status: Acute (5) Acute exacerbation of CHF (congestive heart failure): Status: Acute Plan 82-year-old male past medical history of COPD, CHF with reduced ejection fraction, lung cancer comes into the hospital with complaints of shortness of breath, cough, sputum production as well as increased weakness # acute hypoxic respiratory failure - patient 85% on room air, now requiring 4 L of oxygen satting in the 90s - likely secondary to CHF complicated by pneumonia and COPD - will treat as below - monitor respiratory status, wean oxygen office tolerated # acute community-acquired pneumonia - infiltrate on chest x-ray - will treat with IV antibiotics - follow cultures # acute COPD exacerbation - increased cough, dyspnea, sputum production - will treat with IV antibiotics, Xopenex as patient is tachycardic and Solu-Medrol # acute CHF exacerbation - has elevated BNP, dyspnea with ejection fraction of 45% - will treat with low sodium diet, strict I&O, daily weight - will switch his home p.o. Lasix to IV Lasix - echocardiogram # persistent AFib - continue warfarin - PT INR daily, continue metoprolol and digoxin DVT prophylaxis: Warfarin Given patient's need for oxygen supplement, IV antibiotics, patient require minimum 2 nights inpatient hospital stay for further management monitoring Time Spent With Patient Time: Total time managing care of this patient today ____ minutes. Quality Stroke Does the patient have a stroke diagnosis?: No VTE Prior VTE?: No VTE Risk Level:: Medical - moderate - high VTE Device Contraindication: Treatment Not Indicated VTE Drug Contraindication: N/A - Med Ordered
[2022-12-30] MEDS: methylPREDNISolone Sod Succ 40 MG/ML VIAL IVPUSH (06:38)
--- NOTE | 2022-12-30 07:00 | CA_ITS ---
Transthoracic Echocardiogram Patient (Last, First, Middle): Scottie Encinas J Gender: Male Date of : 1940 Age: 82 Procedure Date: 12/30/2022 Procedure Type: Transthoracic Echocardiogram Location: S3E Height: 187.96 cm Weight: 74.84 kg BSA: 2.00 m2 Heart Rate: 114 bpm BP: 135 / 73 mmHg Hand Box Coverer: SB Referring MD: Ted Ha MD Symptoms: chf Study Quality: Adequate ECG Rhythm: Afib w RVR Conclusions: - Normal left ventricular size and systolic function. There is mildly increased left ventricular wall thickness. The visually estimated ejection fraction is between 55-60%. - Mildly increased right ventricular cavity size. There is moderately decreased right ventricular systolic function. - Significantly elevated right atrial pressure. Moderate pulmonary hypertension is present. - There is mild dilatation of the ascending aorta measuring 3.90 cm. Findings Left Ventricle Normal left ventricular size and systolic function. There is mildly increased left ventricular wall thickness. The visually estimated ejection fraction is between 55-60%. Regional wall motion abnormalities can not be excluded due to suboptimal endocardial definition. There is paradoxical septal motion consistent with a left bundle branch block. Diastolic function is indeterminate on the basis of available data. Right Ventricle Mildly increased right ventricular cavity size. There is moderately decreased right ventricular systolic function. Atria The left atrium is moderately dilated. The right atrium is severely dilated. Aortic Valve There is a normal trileaflet aortic valve. There is mild calcification of the aortic valve. There is no aortic valve stenosis. There is no aortic valve regurgitation. Mitral Valve There is trace mitral valve regurgitation. There is no mitral valve stenosis. Pulmonic Valve The pulmonic valve was not well visualized. Tricuspid Valve Normal tricuspid valve structure. There is mild to moderate tricuspid valve regurgitation. The right ventricular systolic pressure is 50 mmHg. Significantly elevated right atrial pressure. Moderate pulmonary hypertension is present. Great Vessels There is mild dilatation of the ascending aorta measuring 3.90 cm. The visualized portions of the pulmonary artery and branches are normal. Venous The inferior vena cava is dilated and collapses less than 50% with inspiration. Pericardium/Pleural There is no evidence of pericardial effusion. Measurements 2D Linear Measurements IVSd: 1.40 0.6-0.9/0.6-1.0 cm LVIDd: 5.00 3.9-5.3/4.2-5.9 cm LVIDd Index: 2.50 2.4-3.2/2.2-3.1 cm/m2 LVIDs: 3.10 2.0-3.6 cm LVPWd: 1.30 0.7-1.1 cm LA Diam: 4.20 2.7-3.8/3.0-4.0 cm LAIDs Index: 2.10 1.5-2.3 cm/m2 LV Mass: 344.79 67-162/88-224 g LV Mass Index: 172.40 43-95/49-115 g/m2 LVOT Diam: 2.50 3.0+(-)1.3 cm 2D Systolic Function EF 4C: 51.60 >55% EF 2C: 24.50 >55% EF BiP: 39.10 >55% Mitral Valve MV Pk E: 1.25 Aortic Valve AoV Pk Robb: 0.99 AoV Pk Grad: 4.00 AMANDEEP: 4.51 LVOT LVOT Pk Robb: 0.91 LVOT Mn Robb: 0.62 LVOT VTI: 0.15 LVOT Pk Grad: 3.00 LVOT Mn Grad: 2.00 LVOT Diam: 2.50 LVOT Area: 4.91 Diastolic Function MV Pk E: 1.25 Right Ventricle TAPSE (mm): 11.30 TVS' Robb: 9.64 Tricuspid Valve TR Pk Robb: 2.90 TR Pk Grad: 34.00 RA Press: 15.00 RVSP: 50.00 Great Vessels Aorta Sinus of Valsalva: 3.60 2.0-3.5 cm Ao Asc: 3.90 2.1-3.4 cm Pulmonary Valve PV Pk Robb: 0.92 Peak PV Grad: 3.00 Updated in Other Vendor System with Status of Final Nick Ramesh MD electronically signed on 12/30/2022 4:12:57 PM with status of Final
[2022-12-30] MEDS: 0.9 % Sodium Chloride Flush 3 ML SYRINGE IVFLUSH ×2 (08:23→14:30)
[2022-12-30] MEDS: Furosemide 40 MG/4 ML VIAL IVPUSH ×2 (08:23→17:41)
[2022-12-30 08:49] LABS: Prothrombin Time 36.9 SEC (11.1-13.3)
--- NOTE | 2022-12-30 09:54 | PHA.MEDREC ---
Pharmacy Consult ? Medication Reconciliation Pharmacy has completed the medication reconciliation. Patient unable to tell medications taking at home. Called the daughter who also didn't know medications. used last admit list and mis of claim history
--- NOTE | 2022-12-30 10:53 | P.CONNP_ITS ---
History of Present Illness Reason for Consult Consult date: 12/31/22 Chief Complaint Chief complaint: PNA, KISHAN History of Present Illness Narrative: 82-year-old male past medical history of lung cancer, COPD, CHF with reduced ejection fraction, chronic AFib, HLD, PAD, presents to the hospital with reporting increased weakness, cough, sputum production.? On the ED patient was found to be hypoxic 85%.? Symptoms started about 4 days ago, with increased cough and sputum production.? He also states that he has been feeling very weak and having difficulty even getting out of chair to get himself to the bathroom. Baseline creatinine is less than 1. Review of Systems Review of Systems Yes Unobtainable due to mental status PMFSH Past Medical History Medical History Anemia Atrial fibrillation with rapid ventricular response Back pain Benign essential hypertension Bilateral lower extremity edema CAD (coronary artery disease) Cancer of upper lobe of right lung (~2013) Chronic atrial fibrillation Congestive heart failure COPD (chronic obstructive pulmonary disease) Gout Heart failure with reduced ejection fraction HLD (hyperlipidemia) Lumbar degenerative disc disease Neuropathy Osteoarthritis Osteoarthritis of knees, bilateral PAD (peripheral artery disease) Physical deconditioning Recurrent non-small cell lung cancer Smoker Type 2 diabetes mellitus with other diabetic kidney complication Vitamin D deficiency Wears dentures Family History Family History Mother Heart disease Father Heart disease Surgical History Surgical History History of angioplasty (~12/2020) History of back surgery History of brain surgery (~2003) History of bronchoscopy (~2020) History of cardiac cath (~02/2016) History of colonoscopy (~01/2001) History of lung biopsy History of lung surgery (~07/2013) History of lung surgery (~2019) History of partial colectomy (~01/2001) History of right knee surgery (~09/2005) History of thoracentesis (~09/2019) Social History Social History Household Members: None Housing: Condominium Are you a primary med care manager to a significant other at home: No Do you presently have visiting nurse or other home services: Yes Alcohol intake: unknown Patient Tobacco Use Status: Former Tobacco user Tobacco use type: Cigarette Cigarette Packs Per Day: 0.5 Cigarettes Per Day: 10 Years Smoked: 50 Smoked in Last 30 Days: No Second Hand Smoke Exposure: No Use of substances other than those prescribed or required for medical reasons: No Currently Displaying Signs/Symptoms of Drug Intoxication Withdrawal: No Have you been hit, kicked, punched, or otherwise hurt by someone within the past year? If so, by whom?: No Do you feel safe in your current relationship?: No Current Relationship Is there a partner from a previous relationship who is making you feel unsafe now?: No Are you made to feel afraid or neglected: No Pentecostalism Healthcare Practices: protestant Advance Directives: Yes Advance Directives on File: Yes Advance Directives Date on File: 10/05/21 Do you have thoughts of harming others: None Do you have a plan to hurt others: No Plan Recently lost weight without trying: Unsure Nutrition Risks: No Nutritional Risk Poor oral hygiene: No service: No Current occupational status: retired Cognitive needs: Yes (cane) Hearing needs: No Vision needs: Yes Meds Allergies Allergy/AdvReac Type Severity Reaction Status Date / Time No Known Allergies Allergy Unknown UNKNOWN Verified 12/09/22 09:58 [NO KNOWN ALLERGIES] Active Medications: Current Medications Acetaminophen (Acetaminophen 325 Mg Tablet) 650 mg PO Q6H PRN PRN Reason: Pain, Mild (Pain Scale 1-3) Docusate Sodium (Docusate Sodium 100 Mg Capsule) 100 mg PO DAILY PRN PRN Reason: Constipation Furosemide (Furosemide 40 Mg/4 Ml Vial) 40 mg IVPUSH BID@0900,1800 RADHA; Protocol Last Admin: 12/30/22 08:23 Dose: 40 mg Ceftriaxone Sodium 1 gm/ (Sodium Chloride) 50 mls @ 100 mls/hr IV Q24H RADHA Azithromycin 500 mg/ Sodium (Chloride) 250 mls @ 125 mls/hr IV Q24H PENDING SALE TO [facility] Levalbuterol HCl (Levalbuterol Hcl 1.25 Mg/3 Ml Vial.Neb) 1.25 mg INHALE RQ4H PRN PRN Reason: Shortness of Breath/Wheezing Methylprednisolone Sodium Succinate (Methylprednisolone Sod Succ 40 Mg/Ml Vial) 40 mg IVPUSH Q12H RADHA Last Admin: 12/30/22 06:38 Dose: 40 mg Omeprazole (Omeprazole 20 Mg Capsule.) 20 mg PO BID@0630,1630 PENDING SALE TO [facility] Ondansetron HCl (Ondansetron Hcl 4 Mg/2 Ml Vial) 4 mg IVPUSH Q8H PRN PRN Reason: Nausea and Vomiting Sodium Chloride (0.9 % Sodium Chloride Flush 3 Ml Syringe) 3 ml IVFLUSH QSHIFT RADHA Last Admin: 12/30/22 08:23 Dose: 3 ml Home Medications Medication Instructions Recorded Confirmed Last Taken Type calcium carbonate 600 mg-vitamin 1 tab PO DAILY 07/10/20 12/30/22 03/16/22 History D3 5 mcg (200 unit) tablet aspirin 81 mg tablet,delayed 81 mg PO DAILY@1500 09/22/21 12/30/22 03/16/22 History release (Adult Low Dose Aspirin) valsartan 40 mg tablet 40 mg PO DAILY 09/22/21 12/30/22 03/16/22 History ferrous sulfate 325 mg (65 mg 325 mg PO DAILY@1500 03/17/22 12/30/22 03/16/22 History iron) tablet vit C 250 mg-vit E 90 mg-zinc 40 1 tab PO DAILY 03/17/22 12/30/22 03/16/22 History mg-copper 1 [id number] capsule (PreserVision AREDS-2) warfarin 1 mg tablet 1 mg PO [id number] 12/30/22 12/30/22 Unknown History warfarin 1 mg tablet 2 mg PO TH 12/30/22 12/30/22 Unknown History Physical Exam Vital Signs: Last Vital Signs Temp 97.3 F 12/30/22 07:13 Pulse 98 12/30/22 07:13 Resp 20 12/30/22 07:13 BP 135/73 12/30/22 07:13 Pulse Ox 93 12/30/22 10:23 O2 Del Method Nasal Cannula, Oxymask 12/30/22 10:23 O2 Flow Rate 2 12/30/22 10:23 Oxygen Flow Rate 4 12/30/22 05:19 BMI result Body Mass Index 21.2 Ill-appearing. Lying flat. Mucosa dry. Neck is supple Lung: Air entry equal with scattered rhonchi Heart: S1,S2, normal. No rub Abd: Soft. BS + NS : Alert.No asterexis Ext: 1+ edema Results Lab Results 12/30/22 04:53 12/30/22 04:53 Lab results: Chemistry 12/30/22 12/30/22 02:13 04:53 Sodium 147 H 148 H Potassium 5.0 4.8 Carbon Dioxide 29 29 BUN 72 H 71 H Creatinine 1.63 H 1.65 H Calcium 8.7 9.0 Hematology 12/30/22 12/30/22 00:42 04:53 WBC 6.3 7.9 Hgb 11.2 L 11.2 L Plt Count 218 209 Urinalysis 12/30/22 05:29 Urine Color Yellow Urine Appearance Clear Urine pH 5.0 Ur Specific [place] 1.015 Urine Protein 30 (1+) H Urine Glucose (UA) Negative Urine Ketones Negative Urine Blood Negative Urine Nitrite Negative Ur Leukocyte Esterase Negative Urine RBC 0-2 Urine WBC 0-5 Ur Squamous Epith Cells 0-2 Hyaline Casts >20 Assessment and Plan (1) Acute kidney injury: Status: Acute Plan Acute kidney injury and hypernatremia due to free water deficit secondary to use of Lasix. Clinically he appears dry. My recommendation Hold Lasix. Increase free water intake. If a diuretic is needed in the next few days I would prefer a thiazide diuretic like hydrochlorothiazide. Watch renal function. We will monitor urine output. Continue to avoid nephrotoxic agents. We will follow along with the team. Thank you Time Spent With Patient Time: Total time managing care of this patient today ____ minutes. Procedures Date of Service Date of Service: 12/31/22
--- NOTE | 2022-12-30 10:54 | PM.EVENT ---
Event Note Date of Service: 12/30/22 Event Note: This patient is seen and examined by hospitalist team this morning seen and examined again sob seems improving has mild hypernatremia ,possible mild dia on ckd Physical exam and assessment and plan coordinated in h&p note , Agree with the plan in addition: copd/chf excerebation-continue nebs ,steriods' nephrology rec-hold lasix for now ,encourage po intake,free water,moniter respiratory status left leg pain-added xray/dvt studies Time Spent With Patient Time: Total time managing care of this patient today ____ minutes.
--- NOTE | 2022-12-30 12:25 | MHC.CM.PN ---
pt lives alone recevies housekeeping serveis thru [facility] 2 x a week and has rn visits /?agencey pt will have own pts family will transport him home
[2022-12-30] MEDS: Aspirin Enteric Coated 81 MG TABLET.DR PO (14:30)
[2022-12-30] MEDS: Ferrous Sulfate 324 MG TABLET.DR PO (14:30)
[2022-12-30] MEDS: Metoprolol Succinate ER 50 MG TAB.ER.24H PO ×2 (14:30→19:17)
[2022-12-30] MEDS: Warfarin Sodium 1 MG TABLET PO (17:41)
[2022-12-30] MEDS: Omeprazole 20 MG CAPSULE.DR PO (17:41)
[2022-12-30] MEDS: Atorvastatin Calcium 40 MG TABLET PO (19:17)
[2022-12-30 20:07] LABS: Anion Gap 12 (12-20); Blood Urea Nitrogen 77 mg/dL (9-16); Calcium 8.5 mg/dL (8.4-10.2); Carbon Dioxide 32 mmol/L (22-29); Chloride 110 mmol/L (96-108); Creatinine Clr Calc Pharmacy 37.5; Estimated Glomerular Filt Rate 42; Glucose Random 251 mg/dL (60-115); Potassium 4.5 mmol/L (3.3-5.1); Sodium 149 mmol/L (135-145)
[2022-12-31] MEDS: 0.9 % Sodium Chloride Flush 3 ML SYRINGE IVFLUSH ×3 (00:23→16:20)
[2022-12-31] MEDS: cefTRIAXone sodium 1 GM in 0.9 % Sodium Chloride 50 ML IV (00:23)
[2022-12-31] MEDS: Azithromycin 500 MG in 0.9 % Sodium Chloride 250 ML 125 MG IV (01:35)
[2022-12-31 04:00] VITALS: BP 101/57; PULSE 95; RESP 16; TEMP 36.2; O2SAT 96
[2022-12-31 05:27] LABS: Hematocrit 34.1 % (42.0-52.0); Hemoglobin 10.3 g/dl (14.0-18.0); Mean Corpuscular HGB Conc 30.2 g/dl (31.0-36.0); Mean Corpuscular Hemoglobin 32.9 pg (27.0-33.0); Mean Corpuscular Volume 108.9 fL (80.0-98.0); Mean Platelet Volume 11.6 fL (9.4-12.4); NRBC Pct Auto 0.2 /100WBC (0.0-0.2); Platelet Count 200 X10*3/uL (160-400); Red Blood Count 3.13 X10*6/uL (4.60-5.80); Red Cell Distribution Width 15.4 % (11.0-16.0); White Blood Count 10.1 X10*3/uL (4.8-10.8)
[2022-12-31 05:36] LABS: INTERNATIONAL NORM RATIO 4.9 (0.9-1.1); Prothrombin Time 59.8 SEC (11.1-13.3)
[2022-12-31 05:40] LABS: Anion Gap 11 (12-20); Blood Urea Nitrogen 84 mg/dL (9-16); Calcium 8.4 mg/dL (8.4-10.2); Carbon Dioxide 30 mmol/L (22-29); Chloride 109 mmol/L (96-108); Creatinine Clr Calc Pharmacy 34.5; Estimated Glomerular Filt Rate 38; Glucose Random 141 mg/dL (60-115); Potassium 4.9 mmol/L (3.3-5.1); Sodium 145 mmol/L (135-145)
[2022-12-31] MEDS: Omeprazole 20 MG CAPSULE.DR PO ×2 (06:07→16:16)
[2022-12-31 07:11] VITALS: BP 109/55; PULSE 101; RESP 18; TEMP 36.2; O2SAT 93
--- NOTE | 2022-12-31 07:12 | HO.PM.IMPN ---
Subjective Subjective Date of Service: 12/31/22 Interval History: f/u on copd, pna and heart failure as well kishan interval history: still sob, feels congested Physical Exam Vital Signs: Vital Signs: Last Vital Signs Temp 97.1 F 12/31/22 04:00 Pulse 95 12/31/22 04:00 Resp 16 12/31/22 04:00 BP 101/57 L 12/31/22 04:00 Pulse Ox 96 12/31/22 04:00 O2 Del Method Nasal Cannula 12/31/22 04:00 O2 Flow Rate 2 12/31/22 04:00 Oxygen Flow Rate 4 12/30/22 05:19 BMI result Body Mass Index 21.2 Const: Other: General: AO X 3, no acute distress Resp: CTA bilateral CVS: S1,S2,RRR GI: +BS, NT, no distention Skin: No rash Neuro: motor grossly intact Psych: appropriate affect Objective Data Active Medications Acetaminophen (Acetaminophen 325 Mg Tablet) 650 mg PO Q6H PRN PRN Reason: Pain, Mild (Pain Scale 1-3) Aspirin (Aspirin Enteric Coated 81 Mg Tablet.) 81 mg PO DAILY@1500 [facility] Last Admin: 12/30/22 14:30 Dose: 81 mg Documented By: KALEIGH Atorvastatin Calcium (Atorvastatin Calcium 40 Mg Tablet) 40 mg PO BEDTIME [facility] Last Admin: 12/30/22 19:17 Dose: 40 mg Documented By: KALEIGH Calcium Carbonate/Cholecalciferol (Calcium + Vitamin D 250 Mg Tablet) 250 mg PO DAILY [facility] Digoxin (Digoxin 0.125 Mg Tablet) 0.125 mg PO SUMOWEFRSA@0900 [facility] Docusate Sodium (Docusate Sodium 100 Mg Capsule) 100 mg PO DAILY PRN PRN Reason: Constipation Ferrous Sulfate (Ferrous Sulfate 324 Mg Tablet.) 324 mg PO DAILY@1500 [facility] Last Admin: 12/30/22 14:30 Dose: 324 mg Documented By: KALEIGH Folic Acid (Folic Acid 1 Mg Tablet) 1 mg PO DAILY [facility] Ceftriaxone Sodium 1 gm/ (Sodium Chloride) 50 mls @ 100 mls/hr IV Q24H [facility] Last Infusion: 12/31/22 01:07 Dose: 0 mls/hr Documented By: ALLISON Azithromycin 500 mg/ Sodium (Chloride) 250 mls @ 125 mls/hr IV Q24H [facility] Last Infusion: 12/31/22 03:50 Dose: 0 mls/hr Documented By: ALILSON Levalbuterol HCl (Levalbuterol Hcl 1.25 Mg/3 Ml Vial.Neb) 1.25 mg INHALE RQ4H PRN PRN Reason: Shortness of Breath/Wheezing Methylprednisolone Sodium Succinate (Methylprednisolone Sod Succ 40 Mg/Ml Vial) 40 mg IVPUSH DAILY [facility] Metoprolol Succinate (Metoprolol Succinate Er 50 Mg Tab.Er.24h) 50 mg PO TID [facility]; Protocol Last Admin: 12/30/22 19:17 Dose: 50 mg Documented By: KALEIGH Omeprazole (Omeprazole 20 Mg Capsule.) 20 mg PO BID@0630,1630 [facility] Last Admin: 12/31/22 06:07 Dose: 20 mg Documented By: ALLISON Ondansetron HCl (Ondansetron Hcl 4 Mg/2 Ml Vial) 4 mg IVPUSH Q8H PRN PRN Reason: Nausea and Vomiting Potassium Chloride (Potassium Chloride Er 20 Meq Tab.Er.Prt) 20 meq PO DAILY [facility] Sodium Chloride (0.9 % Sodium Chloride Flush 3 Ml Syringe) 3 ml IVFLUSH QSHIFT [facility] Last Admin: 12/31/22 00:23 Dose: 3 ml Documented By: ALLISON Warfarin Sodium (Warfarin Sodium 1 Mg Tablet) 1 mg PO SuMoTuWeFrSa@1800 [facility] Last Admin: 12/30/22 17:41 Dose: 1 mg Documented By: KALEIGH Warfarin Sodium (Warfarin Sodium 2 Mg Tablet) 2 mg PO Th@1800 [facility] Labs 12/31/22 05:13 12/31/22 05:13 Labs: Laboratory Results - last 24 hr 12/30/22 12/30/22 12/31/22 08:21 19:43 05:13 MCV 108.9 H MCH 32.9 MCHC 30.2 L RDW 15.4 Plt Count 200 MPV 11.6 Absolute Nucleated RBC 0.020 H Nucleated RBC % (auto) 0.2 PT 36.9 H INR 3.0 H Anion Gap 12 Estim Creat Clear Calc 37.5 Estimated GFR 42 Random Glucose 251 H Calcium 8.5 12/31/22 12/31/22 05:13 05:13 MCV MCH MCHC RDW Plt Count MPV Absolute Nucleated RBC Nucleated RBC % (auto) PT 59.8 H D INR 4.9 H Anion Gap 11 L Estim Creat Clear Calc 34.5 Estimated GFR 38 Random Glucose 141 H Calcium 8.4 Microbiology Microbiology Results: Microbiology 12/30/22 00:42 Blood Culture - Preliminary Blood - Venous No growth after 24 hours. 12/30/22 00:42 Blood Culture - Preliminary Blood - Venous No growth after 24 hours. Assessment and Plan (1) Acute kidney injury: Status: Acute (2) Community acquired pneumonia: Status: Acute (3) Acute respiratory failure with hypoxia: Status: Acute Plan 82-year-old male past medical history of COPD, CHF with reduced ejection fraction, lung cancer comes into the hospital with complaints of shortness of breath, cough, sputum production as well as increased weakness # acute hypoxic respiratory failure d/t copd, heart failure and penumonia -Treat underlying issues as below, wean off O2 # acute community-acquired pneumonia--Ceftriaxone +Azithro 12/31, total of 7 days of Abx # acute COPD exacerbation--improving, continue bronchodilators and steroid, wean off O2, monitor i/o, salt intake # acute systolic CHF exacerbation, hold IV Lasix in light of worsening heart failure # persistent AFib, rate controled on metoprolol and digoxin, hold coumadin and monitor inr with goal of inr 2 to 3 DVT prophylaxis: Warfarin need for inpt: ongoing management for acute hypoxic resp failure, KISHAN Time Spent With Patient Time: Total time managing care of this patient today ____ minutes. Quality Stroke Does the patient have a stroke diagnosis?: No VTE Prior VTE?: No VTE Risk Level:: Medical - moderate - high VTE Device Contraindication: Treatment Not Indicated VTE Drug Contraindication: N/A - Med Ordered
[2022-12-31] MEDS: Metoprolol Succinate ER 50 MG TAB.ER.24H PO ×3 (08:45→21:24)
[2022-12-31] MEDS: Potassium Chloride ER 20 MEQ TAB.ER.PRT PO (08:45)
[2022-12-31] MEDS: methylPREDNISolone Sod Succ 40 MG/ML VIAL IVPUSH (08:45)
[2022-12-31] MEDS: Calcium + Vitamin D 250 MG TABLET PO (08:45)
[2022-12-31] MEDS: Folic Acid 1 MG TABLET PO (08:45)
--- NOTE | 2022-12-31 10:10 | PM.PNNEP ---
Subjective Subjective Date of Service: 01/01/23 Interval history: Events noted. Physical Exam Vital Signs: Vital Signs: Last Vital Signs Temp 97.2 F 12/31/22 07:11 Pulse 101 H 12/31/22 07:11 Resp 18 12/31/22 07:11 BP 109/55 L 12/31/22 07:11 Pulse Ox 93 12/31/22 07:11 O2 Del Method Nasal Cannula 12/31/22 07:11 O2 Flow Rate 2 12/31/22 07:11 Oxygen Flow Rate 4 12/30/22 05:19 BMI result Body Mass Index 21.2 Const: Other: General: AO X 3, no acute distress Resp: CTA bilateral CVS: S1,S2,RRR GI: +BS, NT, no distention Skin: No rash Neuro: motor grossly intact Psych: appropriate affect Objective Data Labs 12/31/22 05:13 12/31/22 05:13 Labs: Laboratory Results - last 24 hr 12/30/22 12/31/22 12/31/22 19:43 05:13 05:13 WBC 10.1 RBC 3.13 L Hgb 10.3 L Hct 34.1 L MCV 108.9 H MCH 32.9 MCHC 30.2 L RDW 15.4 Plt Count 200 MPV 11.6 Absolute Nucleated RBC 0.020 H Nucleated RBC % (auto) 0.2 PT INR Sodium 149 H 145 Potassium 4.5 4.9 Chloride 110 H 109 H Carbon Dioxide 32 H 30 H Anion Gap 12 11 L BUN 77 H 84 H Creatinine 1.58 H 1.72 H Estim Creat Clear Calc 37.5 34.5 Estimated GFR 42 38 Random Glucose 251 H 141 H Calcium 8.5 8.4 12/31/22 05:13 WBC RBC Hgb Hct MCV MCH MCHC RDW Plt Count MPV Absolute Nucleated RBC Nucleated RBC % (auto) PT 59.8 H D INR 4.9 H Sodium Potassium Chloride Carbon Dioxide Anion Gap BUN Creatinine Estim Creat Clear Calc Estimated GFR Random Glucose Calcium Microbiology Microbiology Results: Microbiology 12/30/22 00:42 Blood - Venous Blood Culture - Preliminary No growth after 24 hours. 12/30/22 00:42 Blood - Venous Blood Culture - Preliminary No growth after 24 hours. Procedures Date of Service Date of Service: 01/01/23 Assessment & Plan Assessment and plan (1) Acute kidney injury: Status: Acute Plan Acute kidney injury and hypernatremia due to free water deficit secondary to use of Lasix. Clinically he appears dry. My recommendation Hold Lasix. Increase free water intake. If a diuretic is needed in the next few days I would prefer a thiazide diuretic like hydrochlorothiazide. Watch renal function. We will monitor urine output. Continue to avoid nephrotoxic agents. We will follow along with the team. Thank you Time Spent With Patient Time: Total time managing care of this patient today ____ minutes. Progress Note: Quality Stroke Does the patient have a stroke diagnosis?: No
[2022-12-31] MEDS: guaiFENesin LA 600 MG TAB.ER.12H PO ×2 (13:01→21:24)
[2022-12-31 15:51] VITALS: BP 129/68; PULSE 110; RESP 20; TEMP 36.3; O2SAT 96
[2022-12-31] MEDS: Ferrous Sulfate 324 MG TABLET.DR PO (16:16)
[2022-12-31] MEDS: Aspirin Enteric Coated 81 MG TABLET.DR PO (16:17)
[2022-12-31] MEDS: Nicotine 14 MG PATCH.TD24 TRANSDERMA (18:08)
[2022-12-31 18:11] VITALS: O2SAT 94
[2022-12-31 20:00] VITALS: BP 116/61; PULSE 111; RESP 20; TEMP 36.2
[2022-12-31] MEDS: Atorvastatin Calcium 40 MG TABLET PO (21:24)
[2022-12-31] MEDS: Docusate Sodium 100 MG CAPSULE PO (23:50)
[2022-12-31] MEDS: Acetaminophen 325 MG TABLET 650 MG PO (23:50)
[2023-01-01 00:21] VITALS: BP 124/69; PULSE 89; RESP 20; TEMP 36.1; O2SAT 96
[2023-01-01] MEDS: cefTRIAXone sodium 1 GM in 0.9 % Sodium Chloride 50 ML IV (00:51)
[2023-01-01] MEDS: Azithromycin 500 MG in 0.9 % Sodium Chloride 250 ML 125 MG IV (01:28)
[2023-01-01] MEDS: Omeprazole 20 MG CAPSULE.DR PO ×2 (06:17→15:52)
[2023-01-01 06:29] LABS: Prothrombin Time 81.7 SEC (11.1-13.3)
[2023-01-01] MEDS: levalbuterol HCL 1.25 MG/3 ML VIAL.NEB INHALE (06:32)
[2023-01-01 06:33] VITALS: PULSE 89; RESP 20; O2SAT 96
[2023-01-01 06:39] LABS: INTERNATIONAL NORM RATIO 6.7 (0.9-1.1)
[2023-01-01] MEDS: 0.9 % Sodium Chloride Flush 3 ML SYRINGE IVFLUSH ×3 (07:13→20:22)
--- NOTE | 2023-01-01 07:34 | P.PNIM_ITS ---
Subjective Subjective Date of Service: 01/02/23 Interval History: f/u on copd, pna and heart failure as well kishan interval history: sob, coughing and very congested Physical Exam Vital Signs: Vital Signs: Last Vital Signs Temp 97 F 01/01/23 00:21 Pulse 89 01/01/23 06:33 Resp 20 01/01/23 06:33 BP 124/69 01/01/23 00:21 Pulse Ox 96 01/01/23 00:21 O2 Del Method Nasal Cannula 01/01/23 00:21 O2 Flow Rate 3 01/01/23 00:21 Oxygen Flow Rate 4 12/30/22 05:19 BMI result Body Mass Index 21.2 Const: Other: General: AO X 3, no acute distress Resp: CTA bilateral CVS: S1,S2,RRR GI: +BS, NT, no distention Skin: No rash Neuro: motor grossly intact Psych: appropriate affect Objective Data Active Medications Acetaminophen (Acetaminophen 325 Mg Tablet) 650 mg PO Q6H PRN PRN Reason: Pain, Mild (Pain Scale 1-3) Last Admin: 12/31/22 23:50 Dose: 650 mg Documented By: RADHA Aspirin (Aspirin Enteric Coated 81 Mg Tablet.) 81 mg PO DAILY@1500 [facility] Last Admin: 12/31/22 16:17 Dose: 81 mg Documented By: MICHAEL Atorvastatin Calcium (Atorvastatin Calcium 40 Mg Tablet) 40 mg PO BEDTIME [facility] Last Admin: 12/31/22 21:24 Dose: 40 mg Documented By: RADHA Calcium Carbonate/Cholecalciferol (Calcium + Vitamin D 250 Mg Tablet) 250 mg PO DAILY [facility] Last Admin: 12/31/22 08:45 Dose: 250 mg Documented By: MICHAEL Digoxin (Digoxin 0.125 Mg Tablet) 0.125 mg PO SUMOWEFRSA@0900 [facility] Docusate Sodium (Docusate Sodium 100 Mg Capsule) 100 mg PO DAILY PRN PRN Reason: Constipation Last Admin: 12/31/22 23:50 Dose: 100 mg Documented By: RADHA Ferrous Sulfate (Ferrous Sulfate 324 Mg Tablet.) 324 mg PO DAILY@1500 [facility] Last Admin: 12/31/22 16:16 Dose: 324 mg Documented By: MICHAEL Folic Acid (Folic Acid 1 Mg Tablet) 1 mg PO DAILY [facility] Last Admin: 12/31/22 08:45 Dose: 1 mg Documented By: MICHAEL Guaifenesin (Guaifenesin La 600 Mg Tab.Er.12h) 600 mg PO BID [facility] Last Admin: 12/31/22 21:24 Dose: 600 mg Documented By: RADHA Ceftriaxone Sodium 1 gm/ (Sodium Chloride) 50 mls @ 100 mls/hr IV Q24H [facility] Last Infusion: 01/01/23 01:29 Dose: 0 mls/hr Documented By: RADHA Azithromycin 500 mg/ Sodium (Chloride) 250 mls @ 125 mls/hr IV Q24H [facility] Last Infusion: 01/01/23 04:33 Dose: 0 mls/hr Documented By: RADHA Levalbuterol HCl (Levalbuterol Hcl 1.25 Mg/3 Ml Vial.Neb) 1.25 mg INHALE RQ4H PRN PRN Reason: Shortness of Breath/Wheezing Last Admin: 01/01/23 06:32 Dose: 1.25 mg Documented By: CINDY Methylprednisolone Sodium Succinate (Methylprednisolone Sod Succ 40 Mg/Ml Vial) 40 mg IVPUSH DAILY [facility] Last Admin: 12/31/22 08:45 Dose: 40 mg Documented By: MICHAEL Metoprolol Succinate (Metoprolol Succinate Er 50 Mg Tab.Er.24h) 50 mg PO TID [facility]; Protocol Last Admin: 12/31/22 21:24 Dose: 50 mg Documented By: RADHA Nicotine (Nicotine 14 Mg Patch.Td24) 14 mg TRANSDERMA DAILY [facility] Last Admin: 12/31/22 18:08 Dose: 14 mg Documented By: GAGANDEEP Omeprazole (Omeprazole 20 Mg Capsule.Dr) 20 mg PO BID@0630,1630 [facility] Last Admin: 01/01/23 06:17 Dose: 20 mg Documented By: RADHA Ondansetron HCl (Ondansetron Hcl 4 Mg/2 Ml Vial) 4 mg IVPUSH Q8H PRN PRN Reason: Nausea and Vomiting Potassium Chloride (Potassium Chloride Er 20 Meq Tab.Er.Prt) 20 meq PO DAILY [facility] Last Admin: 12/31/22 08:45 Dose: 20 meq Documented By: MICHAEL Sodium Chloride (0.9 % Sodium Chloride Flush 3 Ml Syringe) 3 ml IVFLUSH QSHIFT [facility] Last Admin: 01/01/23 07:13 Dose: 3 ml Documented By: PETRONA Labs 12/31/22 05:13 12/31/22 05:13 Labs: Laboratory Results - last 24 hr 01/01/23 05:27 PT 81.7 H D INR 6.7 H* Microbiology Microbiology Results: Microbiology 12/30/22 00:42 Blood Culture - Preliminary Blood - Venous No growth after 48 hours. 12/30/22 00:42 Blood Culture - Preliminary Blood - Venous No growth after 48 hours. Assessment and Plan (1) Acute kidney injury: Status: Acute (2) Community acquired pneumonia: Status: Acute (3) Acute respiratory failure with hypoxia: Status: Acute Plan 82-year-old male past medical history of COPD, CHF with reduced ejection fraction, lung cancer comes into the hospital with complaints of shortness of breath, cough, sputum production as well as increased weakness # acute hypoxic respiratory failure d/t copd, heart failure and penumonia..he remains hypoxic and very congested -Treat underlying issues as below, continue O2 #KISHAN on CKD, Cr was worsening, continue monitoring, # acute community-acquired pneumonia--Ceftriaxone +Azithro 12/31, total of 7 days of Abx # acute COPD exacerbation--improving, continue bronchodilators and steroid, wean off O2, monitor i/o, salt intake # acute systolic CHF exacerbation, resume lasix as he sounds very wet # persistent AFib, rate controled on metoprolol and digoxin, hold coumadin d/t high INR and monitor inr with goal of inr 2 to 3 #Coagulopathy INR 4, hold coumadin, no sings of bleeding hold Vit k at this time #Tobacco dependence--NRT DVT prophylaxis: Warfarin need for inpt: ongoing management for acute hypoxic resp failure, KISHAN Time Spent With Patient Time: Total time managing care of this patient today ____ minutes. Quality Stroke Does the patient have a stroke diagnosis?: No VTE Prior VTE?: No VTE Risk Level:: Medical - moderate - high VTE Device Contraindication: Treatment Not Indicated VTE Drug Contraindication: N/A - Med Ordered
[2023-01-01 07:37] VITALS: BP 109/59; PULSE 97; RESP 20; TEMP 36; O2SAT 95
[2023-01-01] MEDS: Potassium Chloride ER 20 MEQ TAB.ER.PRT PO (08:14)
[2023-01-01] MEDS: Metoprolol Succinate ER 50 MG TAB.ER.24H PO ×3 (08:14→20:21)
[2023-01-01] MEDS: Nicotine 14 MG PATCH.TD24 TRANSDERMA (08:15)
[2023-01-01] MEDS: Digoxin 0.125 MG TABLET PO (08:15)
[2023-01-01] MEDS: Calcium + Vitamin D 250 MG TABLET PO (08:15)
[2023-01-01] MEDS: Folic Acid 1 MG TABLET PO (08:15)
[2023-01-01] MEDS: methylPREDNISolone Sod Succ 40 MG/ML VIAL IVPUSH (08:15)
[2023-01-01] MEDS: guaiFENesin LA 600 MG TAB.ER.12H PO ×2 (08:15→20:21)
--- NOTE | 2023-01-01 10:28 | PM.PNNEP ---
Subjective Subjective Date of Service: 01/02/23 Interval history: Evens noted Physical Exam Vital Signs: Vital Signs: Last Vital Signs Temp 96.8 F 01/01/23 07:37 Pulse 97 01/01/23 07:37 Resp 20 01/01/23 07:37 BP 109/59 L 01/01/23 07:37 Pulse Ox 95 01/01/23 07:37 O2 Del Method Nasal Cannula 01/01/23 07:37 O2 Flow Rate 3 01/01/23 07:37 Oxygen Flow Rate 4 12/30/22 05:19 BMI result Body Mass Index 21.2 Const: Other: General: AO X 3, no acute distress Resp: CTA bilateral CVS: S1,S2,RRR GI: +BS, NT, no distention Skin: No rash Neuro: motor grossly intact Psych: appropriate affect Objective Data Labs 12/31/22 05:13 12/31/22 05:13 Labs: Laboratory Results - last 24 hr 01/01/23 05:27 PT 81.7 H D INR 6.7 H* Microbiology Microbiology Results: Microbiology 12/30/22 00:42 Blood - Venous Blood Culture - Preliminary No growth after 48 hours. 12/30/22 00:42 Blood - Venous Blood Culture - Preliminary No growth after 48 hours. Procedures Date of Service Date of Service: 01/02/23 Assessment & Plan Assessment and plan (1) Acute kidney injury: Status: Acute Plan Acute kidney injury and hypernatremia due to free water deficit secondary to use of Lasix. Clinically he appears dry. Na is better Cr is marginally higher My recommendation Hold Lasix. Increase free water intake. If a diuretic is needed in the next few days I would prefer a thiazide diuretic like hydrochlorothiazide. Watch renal function. We will monitor urine output. Continue to avoid nephrotoxic agents. We will follow along with the team. Thank you Time Spent With Patient Time: Total time managing care of this patient today ____ minutes. Progress Note: Quality Stroke Does the patient have a stroke diagnosis?: No
[2023-01-01 14:07] VITALS: BP 118/59; PULSE 102; O2SAT 92
[2023-01-01] MEDS: Aspirin Enteric Coated 81 MG TABLET.DR PO (14:07)
[2023-01-01] MEDS: Ferrous Sulfate 324 MG TABLET.DR PO (14:07)
[2023-01-01 15:22] VITALS: BP 124/58; PULSE 101; RESP 20; TEMP 36.4; O2SAT 91
[2023-01-01 19:40] VITALS: BP 132/69; PULSE 94; RESP 20; TEMP 36.6; O2SAT 91
[2023-01-01] MEDS: Atorvastatin Calcium 40 MG TABLET PO (20:21)
[2023-01-02] VITALS (9 sets, daily range): BP systolic 100–140; BP diastolic 63–79; PULSE 85–119; RESP 18–20; TEMP 36.1–36.6; O2SAT 90–96
[2023-01-02] MEDS: cefTRIAXone sodium 1 GM in 0.9 % Sodium Chloride 50 ML IV (00:37)
[2023-01-02] MEDS: Azithromycin 500 MG in 0.9 % Sodium Chloride 250 ML 125 MG IV (01:34)
[2023-01-02] MEDS: Omeprazole 20 MG CAPSULE.DR PO ×2 (05:14→15:34)
[2023-01-02 05:46] LABS: INTERNATIONAL NORM RATIO 4.9 (0.9-1.1); Prothrombin Time 59.8 SEC (11.1-13.3)
[2023-01-02] MEDS: levalbuterol HCL 1.25 MG/3 ML VIAL.NEB INHALE (08:16)
[2023-01-02] MEDS: guaiFENesin LA 600 MG TAB.ER.12H PO ×2 (08:54→20:14)
[2023-01-02] MEDS: Folic Acid 1 MG TABLET PO (08:54)
[2023-01-02] MEDS: Calcium + Vitamin D 250 MG TABLET PO (08:54)
[2023-01-02] MEDS: Metoprolol Succinate ER 50 MG TAB.ER.24H PO ×3 (08:54→20:14)
[2023-01-02] MEDS: Potassium Chloride ER 20 MEQ TAB.ER.PRT PO (08:54)
[2023-01-02] MEDS: Nicotine 14 MG PATCH.TD24 TRANSDERMA (08:54)
[2023-01-02] MEDS: methylPREDNISolone Sod Succ 40 MG/ML VIAL IVPUSH (08:54)
[2023-01-02] MEDS: 0.9 % Sodium Chloride Flush 3 ML SYRINGE IVFLUSH ×3 (08:55→20:14)
[2023-01-02 09:09] LABS: Anion Gap 10 (12-20); Blood Urea Nitrogen 98 mg/dL (9-16); Calcium 8.6 mg/dL (8.4-10.2); Carbon Dioxide 29 mmol/L (22-29); Chloride 110 mmol/L (96-108); Creatinine Clr Calc Pharmacy 41.5; Estimated Glomerular Filt Rate 47; Glucose Random 141 mg/dL (60-115); Sodium 144 mmol/L (135-145)
--- NOTE | 2023-01-02 10:16 | P.PNNP_ITS ---
Subjective Subjective Date of Service: 01/02/23 Interval history: Events noted. Unable to go ROS. P.o. intake seems poor Physical Exam 2 Vital Signs: Vital Signs: Last Vital Signs Temp 97.2 F 01/02/23 07:57 Pulse 85 01/02/23 08:22 Resp 20 01/02/23 08:22 BP 136/79 01/02/23 07:57 Pulse Ox 90 L 01/02/23 07:57 O2 Del Method Nasal Cannula 01/02/23 07:57 O2 Flow Rate 3 01/02/23 07:57 Oxygen Flow Rate 4 12/30/22 05:19 BMI result Body Mass Index 21.2 Const: Other: Mucosa dry General: no acute distress Resp: Bilateral scattered rhonchi CVS: S1,S2,RRR GI: +BS, NT, no distention Skin: No rash Neuro: motor grossly intact No edema Objective Data Labs 12/31/22 05:13 01/02/23 08:41 Labs: Laboratory Results - last 24 hr 01/02/23 01/02/23 05:31 08:41 PT 59.8 H D INR 4.9 H Sodium 144 Potassium 5.0 Chloride 110 H Carbon Dioxide 29 Anion Gap 10 L BUN 98 H Creatinine 1.43 H Estim Creat Clear Calc 41.5 Estimated GFR 47 Random Glucose 141 H Calcium 8.6 Microbiology Microbiology Results: Microbiology 12/30/22 00:42 Blood - Venous Blood Culture - Preliminary No growth after 48 hours. 12/30/22 00:42 Blood - Venous Blood Culture - Preliminary No growth after 48 hours. Procedures Date of Service Date of Service: 01/02/23 Assessment & Plan Assessment and plan (1) Acute kidney injury: Status: Acute Plan Acute kidney injury and hypernatremia due to free water deficit secondary to use of Lasix. Clinically he appears dry. Na is better Creatinine improved with holding Lasix. My recommendation Encourage p.o. intake If a diuretic is needed in the next few days I would prefer a thiazide diuretic like hydrochlorothiazide. This will prevent hypernatremia Watch renal function. We will monitor urine output. Continue to avoid nephrotoxic agents. We will follow along with the team. Thank you Time Spent With Patient Time: Total time managing care of this patient today ____ minutes. Progress Note: Quality Stroke Does the patient have a stroke diagnosis?: No
[2023-01-02] MEDS: Furosemide 40 MG/4 ML VIAL IVPUSH (10:37)
[2023-01-02] MEDS: Albuterol/Iprat 2.5/0.5MG 3 ML AMPUL.NEB INHALE ×3 (11:14→19:35)
[2023-01-02] MEDS: Ferrous Sulfate 324 MG TABLET.DR PO (14:54)
[2023-01-02] MEDS: Aspirin Enteric Coated 81 MG TABLET.DR PO (14:54)
[2023-01-02] MEDS: Atorvastatin Calcium 40 MG TABLET PO (20:14)
[2023-01-03] VITALS (11 sets, daily range): BP systolic 123–138; BP diastolic 73–83; PULSE 66–118; RESP 16–20; TEMP 36.2–36.9; O2SAT 92–98
[2023-01-03] MEDS: cefTRIAXone sodium 1 GM in 0.9 % Sodium Chloride 50 ML IV (00:03)
[2023-01-03] MEDS: Azithromycin 500 MG in 0.9 % Sodium Chloride 250 ML 125 MG IV (00:48)
[2023-01-03] MEDS: levalbuterol HCL 1.25 MG/3 ML VIAL.NEB INHALE (01:25)
[2023-01-03] MEDS: Omeprazole 20 MG CAPSULE.DR PO ×2 (05:38→17:43)
[2023-01-03 05:53] LABS: INTERNATIONAL NORM RATIO 3.2 (0.9-1.1); Prothrombin Time 38.6 SEC (11.1-13.3)
[2023-01-03] MEDS: Albuterol/Iprat 2.5/0.5MG 3 ML AMPUL.NEB INHALE ×4 (07:46→18:55)
[2023-01-03 08:06] LABS: Anion Gap 12 (12-20); Blood Urea Nitrogen 95 mg/dL (9-16); Calcium 8.9 mg/dL (8.4-10.2); Carbon Dioxide 30 mmol/L (22-29); Chloride 108 mmol/L (96-108); Creatinine Clr Calc Pharmacy 51.6; Estimated Glomerular Filt Rate > 60; Glucose Random 129 mg/dL (60-115); Potassium 5.1 mmol/L (3.3-5.1); Sodium 145 mmol/L (135-145)
--- NOTE | 2023-01-03 09:09 | HO.PM.IMPN ---
Subjective Subjective Date of Service: 01/03/23 Interval History: f/u on KISHAN, copd, heart failure overall improving Physical Exam Vital Signs: Vital Signs: Last Vital Signs Temp 97.2 F 01/03/23 03:54 Pulse 96 01/03/23 07:48 Resp 16 01/03/23 07:48 BP 137/73 01/03/23 03:54 Pulse Ox 95 01/03/23 03:54 O2 Del Method Nasal Cannula 01/03/23 03:54 O2 Flow Rate 3 01/03/23 03:54 Oxygen Flow Rate 4 12/30/22 05:19 BMI result Body Mass Index 21.2 Const: Other: General: AO X 3, no acute distress Resp: CTA bilateral CVS: S1,S2,iregular iregular GI: +BS, NT, no distention Skin: No rash Neuro: motor grossly intact Psych: appropriate affect Objective Data Active Medications Acetaminophen (Acetaminophen 325 Mg Tablet) 650 mg PO Q6H PRN PRN Reason: Pain, Mild (Pain Scale 1-3) Last Admin: 12/31/22 23:50 Dose: 650 mg Documented By: RADHA Albuterol/Ipratropium (Albuterol/Iprat 2.5/0.5mg 3 Ml Ampul.Neb) 3 ml INHALE RQ4H WHILE AWAKE [facility] Last Admin: 01/03/23 07:46 Dose: 3 ml Documented By: LUZ MARIA Aspirin (Aspirin Enteric Coated 81 Mg Tablet.Dr) 81 mg PO DAILY@1500 [facility] Last Admin: 01/02/23 14:54 Dose: 81 mg Documented By: DURGA Atorvastatin Calcium (Atorvastatin Calcium 40 Mg Tablet) 40 mg PO BEDTIME [facility] Last Admin: 01/02/23 20:14 Dose: 40 mg Documented By: NIMA Calcium Carbonate/Cholecalciferol (Calcium + Vitamin D 250 Mg Tablet) 250 mg PO DAILY [facility] Last Admin: 01/02/23 08:54 Dose: 250 mg Documented By: DURGA Digoxin (Digoxin 0.125 Mg Tablet) 0.125 mg PO SUMOWEFRSA@0900 [facility] Last Admin: 01/01/23 08:15 Dose: 0.125 mg Documented By: PETRONA Docusate Sodium (Docusate Sodium 100 Mg Capsule) 100 mg PO DAILY PRN PRN Reason: Constipation Last Admin: 12/31/22 23:50 Dose: 100 mg Documented By: RADHA Ferrous Sulfate (Ferrous Sulfate 324 Mg Tablet.) 324 mg PO DAILY@1500 [facility] Last Admin: 01/02/23 14:54 Dose: 324 mg Documented By: DURGA Folic Acid (Folic Acid 1 Mg Tablet) 1 mg PO DAILY [facility] Last Admin: 01/02/23 08:54 Dose: 1 mg Documented By: DURGA Furosemide (Furosemide 40 Mg/4 Ml Vial) 40 mg IVPUSH DAILY [facility]; Protocol Last Admin: 01/02/23 10:37 Dose: 40 mg Documented By: DURGA Guaifenesin (Guaifenesin La 600 Mg Tab.Er.12h) 600 mg PO BID [facility] Last Admin: 01/02/23 20:14 Dose: 600 mg Documented By: NIMA Ceftriaxone Sodium 1 gm/ (Sodium Chloride) 50 mls @ 100 mls/hr IV Q24H [facility] Last Infusion: 01/03/23 00:50 Dose: 0 mls/hr Documented By: NIMA Azithromycin 500 mg/ Sodium (Chloride) 250 mls @ 125 mls/hr IV Q24H [facility] Last Infusion: 01/03/23 03:15 Dose: 0 mls/hr Documented By: NIMA Levalbuterol HCl (Levalbuterol Hcl 1.25 Mg/3 Ml Vial.[place]) 1.25 mg INHALE RQ4H PRN PRN Reason: Shortness of Breath/Wheezing Last Admin: 01/03/23 01:25 Dose: 1.25 mg Documented By: LADONNA Methylprednisolone Sodium Succinate (Methylprednisolone Sod Succ 40 Mg/Ml Vial) 40 mg IVPUSH DAILY [facility] Last Admin: 01/02/23 08:54 Dose: 40 mg Documented By: DURGA Metoprolol Succinate (Metoprolol Succinate Er 50 Mg Tab.Er.24h) 50 mg PO TID [facility]; Protocol Last Admin: 01/02/23 20:14 Dose: 50 mg Documented By: NIMA Nicotine (Nicotine 14 Mg Patch.Td24) 14 mg TRANSDERMA DAILY [facility] Last Admin: 01/02/23 08:54 Dose: 14 mg Documented By: DURGA Omeprazole (Omeprazole 20 Mg Capsule.) 20 mg PO BID@0630,2854 [facility] Last Admin: 01/03/23 05:38 Dose: 20 mg Documented By: NIMA Ondansetron HCl (Ondansetron Hcl 4 Mg/2 Ml Vial) 4 mg IVPUSH Q8H PRN PRN Reason: Nausea and Vomiting Potassium Chloride (Potassium Chloride Er 20 Meq Tab.Er.Prt) 20 meq PO DAILY [facility] Last Admin: 01/02/23 08:54 Dose: 20 meq Documented By: DURGA Sodium Chloride (0.9 % Sodium Chloride Flush 3 Ml Syringe) 3 ml IVFLUSH QSHIFT [facility] Last Admin: 01/02/23 20:14 Dose: 3 ml Documented By: NIMA Labs 12/31/22 05:13 01/03/23 07:43 Labs: Laboratory Results - last 24 hr 01/02/23 01/03/23 01/03/23 08:41 05:08 07:43 PT 38.6 H D INR 3.2 H Anion Gap 10 L 12 Estim Creat Clear Calc 41.5 51.6 Estimated GFR 47 > 60 Random Glucose 141 H 129 H Calcium 8.6 8.9 Assessment and Plan (1) Acute kidney injury: Status: Acute (2) Community acquired pneumonia: Status: Acute (3) Acute respiratory failure with hypoxia: Status: Acute Plan 82-year-old male past medical history of COPD, CHF with reduced ejection fraction, lung cancer comes into the hospital with complaints of shortness of breath, cough, sputum production as well as increased weakness # acute hypoxic respiratory failure d/t copd, heart failure and penumonia..he is less hypoxic and less congested -Treat underlying issues as below, continue O2 #KISHAN on CKD, likely d/t cardiorenal and has improved with lasix, Cr is now 1.15 # acute community-acquired pneumonia--Ceftriaxone +Azithro 12/31, total of 7 days of Abx ending 01/06 # acute COPD exacerbation--improving, continue bronchodilators and steroid, wean off O2, monitor i/o, # acute systolic CHF exacerbation, IV lasix with good effect # persistent AFib, rate controled on metoprolol and digoxin, hold coumadin d/t high INR and monitor inr with goal of inr 2 to 3 #Coagulopathy INR INR josesito to 3.2, restart comadin at low dose #Tobacco dependence--NRT DVT prophylaxis: Warfarin need for inpt: ongoing management for acute hypoxic resp failure, KISHAN Time Spent With Patient Time: Total time managing care of this patient today ____ minutes. Quality Stroke Does the patient have a stroke diagnosis?: No VTE Prior VTE?: No VTE Risk Level:: Medical - moderate - high VTE Device Contraindication: Treatment Not Indicated VTE Drug Contraindication: N/A - Med Ordered
[2023-01-03] MEDS: Potassium Chloride ER 20 MEQ TAB.ER.PRT PO (09:21)
[2023-01-03] MEDS: methylPREDNISolone Sod Succ 40 MG/ML VIAL IVPUSH (09:21)
[2023-01-03] MEDS: Metoprolol Succinate ER 50 MG TAB.ER.24H PO ×3 (09:21→21:18)
[2023-01-03] MEDS: Acetaminophen 325 MG TABLET 650 MG PO (09:21)
[2023-01-03] MEDS: Folic Acid 1 MG TABLET PO (09:21)
[2023-01-03] MEDS: Docusate Sodium 100 MG CAPSULE PO (09:21)
[2023-01-03] MEDS: Digoxin 0.125 MG TABLET PO (09:21)
[2023-01-03] MEDS: Calcium + Vitamin D 250 MG TABLET PO (09:21)
[2023-01-03] MEDS: Furosemide 40 MG/4 ML VIAL IVPUSH (09:21)
[2023-01-03] MEDS: guaiFENesin LA 600 MG TAB.ER.12H PO ×2 (09:21→21:18)
[2023-01-03] MEDS: 0.9 % Sodium Chloride Flush 3 ML SYRINGE IVFLUSH ×3 (09:22→21:18)
[2023-01-03] MEDS: Nicotine 14 MG PATCH.TD24 TRANSDERMA (09:22)
[2023-01-03] MEDS: Ferrous Sulfate 324 MG TABLET.DR PO (14:10)
[2023-01-03] MEDS: Aspirin Enteric Coated 81 MG TABLET.DR PO (14:10)
--- NOTE | 2023-01-03 15:07 | MHC.CM.PN ---
PT recommends STR. [facility] have offered a bed pending availability at discharge. [facility] for [facility] via [facility].
--- NOTE | 2023-01-03 17:13 | PM.PNNEP ---
Subjective Subjective Date of Service: 01/03/23 Interval history: f/u on KISHAN, and hypernatremia Physical Exam Vital Signs: Vital Signs: Last Vital Signs Temp 98.5 F 01/03/23 15:38 Pulse 118 H 01/03/23 15:38 Resp 17 01/03/23 15:38 BP 138/79 01/03/23 15:38 Pulse Ox 97 01/03/23 15:38 O2 Del Method Nasal Cannula 01/03/23 15:38 O2 Flow Rate 2 01/03/23 15:38 Oxygen Flow Rate 4 12/30/22 05:19 BMI result Body Mass Index 21.2 Const: Other: General: AO X 3, no acute distress Resp: CTA bilateral CVS: S1,S2,iregular iregular GI: +BS, NT, no distention Skin: No rash Neuro: motor grossly intact Psych: appropriate affect General: cooperative and no acute distress Orientation/consciousness: patient oriented x3 Eyes: General: appearance normal, both eyes and all related structures Resp: Other: On non-rebreather, diffuse rhonchi Effort & Inspection: normal respiratory effort Cardio: Rate: regular rate Rhythm: regular rhythm GI: Palpation (GI): Soft to palpation Auscultation: normal bowel sounds Skin: General skin exam: no rashes or lesions noted Neuro: General: patient oriented x3 Cognition (Neuro): normal cognition Extrem: Other: No pitting edema General: Yes normal to inspection and Yes no pedal edema Objective Data Labs 12/31/22 05:13 01/03/23 07:43 Labs: Laboratory Results - last 24 hr 01/03/23 01/03/23 05:08 07:43 PT 38.6 H D INR 3.2 H Sodium 145 Potassium 5.1 Chloride 108 Carbon Dioxide 30 H Anion Gap 12 BUN 95 H Creatinine 1.15 Estim Creat Clear Calc 51.6 Estimated GFR > 60 Random Glucose 129 H Calcium 8.9 Microbiology Microbiology Results: Microbiology 12/30/22 00:42 Blood - Venous Blood Culture - Preliminary No growth after 48 hours. 12/30/22 00:42 Blood - Venous Blood Culture - Preliminary No growth after 48 hours. Procedures Date of Service Date of Service: 01/03/23 Assessment & Plan Assessment and plan (1) Acute kidney injury: Status: Acute (2) Prerenal azotemia: Status: Acute (3) Hypernatremia: Status: Acute Plan 82-year-old male past medical history of COPD, CHF with reduced ejection fraction, lung cancer comes into the hospital with complaints of shortness of breath, cough, sputum production as well as increased weakness. Dehydrated with azotemia, KISHAN. Being treated for pneumonia and COPD exacerbation. Remains azotemic partially driven by steroids. Recommend: Hold furosemide Allow ad kraig fluid intake Time Spent With Patient Time: Total time managing care of this patient today ____ minutes. Progress Note: Quality Stroke Does the patient have a stroke diagnosis?: No
[2023-01-03] MEDS: Warfarin Sodium 0.5 MG HALFTAB PO (17:43)
[2023-01-03] MEDS: Atorvastatin Calcium 40 MG TABLET PO (21:18)
[2023-01-04] VITALS (7 sets, daily range): BP systolic 129–132; BP diastolic 64–76; PULSE 92–110; RESP 18–24; TEMP 36–36.4; O2SAT 93–96
[2023-01-04] MEDS: cefTRIAXone sodium 1 GM in 0.9 % Sodium Chloride 50 ML IV (00:47)
[2023-01-04] MEDS: Azithromycin 500 MG in 0.9 % Sodium Chloride 250 ML 125 MG IV (01:18)
[2023-01-04] MEDS: Omeprazole 20 MG CAPSULE.DR PO ×2 (05:50→15:54)
[2023-01-04 07:26] LABS: INTERNATIONAL NORM RATIO 2.5 (0.9-1.1); Prothrombin Time 30.8 SEC (11.1-13.3)
[2023-01-04] MEDS: Albuterol/Iprat 2.5/0.5MG 3 ML AMPUL.NEB INHALE ×4 (07:47→19:56)
[2023-01-04] MEDS: 0.9 % Sodium Chloride Flush 3 ML SYRINGE IVFLUSH ×2 (08:02→15:55)
[2023-01-04] MEDS: Metoprolol Succinate ER 50 MG TAB.ER.24H PO ×3 (08:02→20:52)
[2023-01-04] MEDS: predniSONE 10 MG TABLET PO (08:02)
[2023-01-04] MEDS: Digoxin 0.125 MG TABLET PO (08:03)
[2023-01-04] MEDS: Calcium + Vitamin D 250 MG TABLET PO (08:03)
[2023-01-04] MEDS: Potassium Chloride ER 20 MEQ TAB.ER.PRT PO (08:03)
[2023-01-04] MEDS: guaiFENesin LA 600 MG TAB.ER.12H PO ×2 (08:04→20:52)
[2023-01-04] MEDS: Folic Acid 1 MG TABLET PO (08:04)
[2023-01-04] MEDS: Nicotine 14 MG PATCH.TD24 TRANSDERMA (08:10)
--- NOTE | 2023-01-04 08:10 | P.PNIM_ITS ---
Subjective Subjective Date of Service: 01/04/23 Interval History: Overall continues to improve, breathing is more comfortable, less conested, renal failure has resolved. Physical Exam Vital Signs: Vital Signs: Last Vital Signs Temp 97.5 F 01/04/23 07:35 Pulse 101 H 01/04/23 07:48 Resp 18 01/04/23 07:48 BP 129/76 01/04/23 07:35 Pulse Ox 96 01/04/23 07:35 O2 Del Method Nasal Cannula 01/04/23 07:35 O2 Flow Rate 2 01/04/23 07:35 Oxygen Flow Rate 4 12/30/22 05:19 BMI result Body Mass Index 21.2 Const: Other: General: AO X 2, no acute distress Resp: CTA bilateral CVS: S1,S2, iregular ireular no leg edema GI: +BS, NT, no distention Skin: No rash Neuro: motor grossly intact Psych: appropriate affect Objective Data Active Medications Acetaminophen (Acetaminophen 325 Mg Tablet) 650 mg PO Q6H PRN PRN Reason: Pain, Mild (Pain Scale 1-3) Last Admin: 01/03/23 09:21 Dose: 650 mg Documented By: SYLVIA Albuterol/Ipratropium (Albuterol/Iprat 2.5/0.5mg 3 Ml Ampul.Neb) 3 ml INHALE RQ4H WHILE AWAKE [facility] Last Admin: 01/04/23 07:47 Dose: 3 ml Documented By: CHICO Aspirin (Aspirin Enteric Coated 81 Mg Tablet.) 81 mg PO DAILY@1500 [facility] Last Admin: 01/03/23 14:10 Dose: 81 mg Documented By: SYLVIA Atorvastatin Calcium (Atorvastatin Calcium 40 Mg Tablet) 40 mg PO BEDTIME [facility] Last Admin: 01/03/23 21:18 Dose: 40 mg Documented By: ALVARO Calcium Carbonate/Cholecalciferol (Calcium + Vitamin D 250 Mg Tablet) 250 mg PO DAILY [facility] Last Admin: 01/03/23 09:21 Dose: 250 mg Documented By: SYLVIA Cefuroxime Axetil (Cefuroxime Axetil 500 Mg Tablet) 500 mg PO BID [facility] Digoxin (Digoxin 0.125 Mg Tablet) 0.125 mg PO SUMOWEFRSA@0900 [facility] Last Admin: 01/03/23 09:21 Dose: 0.125 mg Documented By: SYLVIA Docusate Sodium (Docusate Sodium 100 Mg Capsule) 100 mg PO DAILY PRN PRN Reason: Constipation Last Admin: 01/03/23 09:21 Dose: 100 mg Documented By: SYLVIA Ferrous Sulfate (Ferrous Sulfate 324 Mg Tablet.) 324 mg PO DAILY@1500 [facility] Last Admin: 01/03/23 14:10 Dose: 324 mg Documented By: SYLVIA Folic Acid (Folic Acid 1 Mg Tablet) 1 mg PO DAILY [facility] Last Admin: 01/03/23 09:21 Dose: 1 mg Documented By: SYLVIA Guaifenesin (Guaifenesin La 600 Mg Tab.Er.12h) 600 mg PO BID [facility] Last Admin: 01/03/23 21:18 Dose: 600 mg Documented By: ALVARO Levalbuterol HCl (Levalbuterol Hcl 1.25 Mg/3 Ml Vial.Neb) 1.25 mg INHALE RQ4H PRN PRN Reason: Shortness of Breath/Wheezing Last Admin: 01/03/23 01:25 Dose: 1.25 mg Documented By: LADONNA Metoprolol Succinate (Metoprolol Succinate Er 50 Mg Tab.Er.24h) 50 mg PO TID [facility]; Protocol Last Admin: 01/03/23 21:18 Dose: 50 mg Documented By: ALVARO Nicotine (Nicotine 14 Mg Patch.Td24) 14 mg TRANSDERMA DAILY [facility] Last Admin: 01/03/23 09:22 Dose: 14 mg Documented By: SYLVIA Omeprazole (Omeprazole 20 Mg Capsule.) 20 mg PO BID@0630,1630 [facility] Last Admin: 01/04/23 05:50 Dose: 20 mg Documented By: ALVARO Ondansetron HCl (Ondansetron Hcl 4 Mg/2 Ml Vial) 4 mg IVPUSH Q8H PRN PRN Reason: Nausea and Vomiting Potassium Chloride (Potassium Chloride Er 20 Meq Tab.Er.Prt) 20 meq PO DAILY [facility] Last Admin: 01/03/23 09:21 Dose: 20 meq Documented By: SYLVIA Prednisone (Prednisone 10 Mg Tablet) 10 mg PO DAILY [facility] Sodium Chloride (0.9 % Sodium Chloride Flush 3 Ml Syringe) 3 ml IVFLUSH QSHIFT [facility] Last Admin: 01/03/23 21:18 Dose: 3 ml Documented By: ALVARO Warfarin Sodium (Warfarin Sodium 0.5 Mg Halftab) 0.5 mg PO DAILY@1800 [facility] Last Admin: 01/03/23 17:43 Dose: 0.5 mg Documented By: SYLVIA Labs 12/31/22 05:13 01/03/23 07:43 Labs: Laboratory Results - last 24 hr 01/04/23 05:58 PT 30.8 H D INR 2.5 H Microbiology Microbiology Results: Microbiology 12/30/22 00:42 Blood Culture - Final Blood - Venous No growth after 5 days. 12/30/22 00:42 Blood Culture - Final Blood - Venous No growth after 5 days. Assessment and Plan (1) Acute kidney injury: Status: Acute (2) Community acquired pneumonia: Status: Acute (3) Acute respiratory failure with hypoxia: Status: Acute Plan 82-year-old male past medical history of COPD, CHF with reduced ejection fraction, lung cancer comes into the hospital with complaints of shortness of breath, cough, sputum production as well as increased weakness Patient presented with acute hypoxic respiratory failure and work up revealed pneumonia, copd exacerbation, decompensated heart failure and KISHAN. He was admin istered oxygen to correct hypoxia. # acute hypoxic respiratory failure d/t copd, heart failure and penumonia..Acute hypoxic respiratory failure has resolved with treatement of underlying issues. Hypoxia was treated with oxygen and has # acute COPD exacerbation--has been treated with bronchodilators by Neb and intravenous steroid that has now been changed to oral prednisone 10 mg and will treat for 3 more days #KISHAN on CKD, likely d/t cardiorenal syndrome. He presented with Creatinine of 1.63 and peaked at 1.7 and has improved to 1.15 as of 01/03, following diuresis with lasix. # Community-acquired pneumonia--Treated in hospital Ceftriaxone +Azithro 12/31 to 01/03 and , total of 7 days of Abx ending 01/06 with Ceftin 500 mg bid # acute systolic CHF exacerbation, Treated with IV Lasix with good effect and has transitioned to oral Lasix 40 mg daily # persistent AFib, rate controled on metoprolol and digoxin. INR was 3 when he presented and went up to 6 due to antibiotics, coumadin was on hold and until INR came back down to 3 and coumadin was restarted on 01/03 at 0.5 mg but will resume home regimen #Tobacco dependence--NRT DVT prophylaxis: Warfarin need for inpt: ongoing management for acute hypoxic resp failure, KISHAN PT is recommending STR, discharge when bed available. Time Spent With Patient Time: Total time managing care of this patient today ____ minutes. Quality Stroke Does the patient have a stroke diagnosis?: No VTE Prior VTE?: No VTE Risk Level:: Medical - moderate - high VTE Device Contraindication: Treatment Not Indicated VTE Drug Contraindication: N/A - Med Ordered
[2023-01-04] MEDS: Acetaminophen 325 MG TABLET 650 MG PO (08:16)
[2023-01-04 09:20] LABS: Anion Gap 15 (12-20); Blood Urea Nitrogen 98 mg/dL (9-16); Calcium 8.7 mg/dL (8.4-10.2); Carbon Dioxide 31 mmol/L (22-29); Chloride 106 mmol/L (96-108); Creatinine Clr Calc Pharmacy 50.3; Estimated Glomerular Filt Rate 59; Glucose Random 146 mg/dL (60-115); Potassium 5.4 mmol/L (3.3-5.1); Sodium 147 mmol/L (135-145)
[2023-01-04] MEDS: Ferrous Sulfate 324 MG TABLET.DR PO (15:54)
[2023-01-04] MEDS: Aspirin Enteric Coated 81 MG TABLET.DR PO (15:55)
[2023-01-04] MEDS: Warfarin Sodium 0.5 MG HALFTAB PO (17:40)
[2023-01-04] MEDS: Docusate Sodium 100 MG CAPSULE PO (17:41)
[2023-01-04] MEDS: Atorvastatin Calcium 40 MG TABLET PO (20:52)
[2023-01-05] VITALS (9 sets, daily range): BP systolic 106–122; BP diastolic 56–72; PULSE 77–107; RESP 16–40; TEMP 36–36.6; O2SAT 90–95
[2023-01-05] MEDS: Omeprazole 20 MG CAPSULE.DR PO ×2 (05:56→15:32)
[2023-01-05 06:49] LABS: MANUAL DIFF FLAG NO
[2023-01-05 06:54] LABS: Basophils Percent Auto 0.1 % (0-2); Eosinophils Absolute Auto 0.1 X10*3/uL (0.0-0.4); Eosinophils Percent Auto 1.6 % (0-4); Hematocrit 26.7 % (42.0-52.0); Hemoglobin 8.3 g/dl (14.0-18.0); Imm Gran Abs Auto 0.11 X10*3/uL (0.00-0.03); Imm Gran Pct Auto 1.3 % (0.0-0.4); Lymphocytes Absolute Auto 0.7 X10*3/uL (1.2-4.9); Lymphocytes Percent Auto 8.9 % (20-40); Mean Corpuscular HGB Conc 31.1 g/dl (31.0-36.0); Mean Corpuscular Hemoglobin 32.3 pg (27.0-33.0); Mean Corpuscular Volume 103.9 fL (80.0-98.0); Mean Platelet Volume 11.6 fL (9.4-12.4); Monocytes Absolute Auto 0.7 X10*3/uL (0.1-1.2); Monocytes Percent Auto 8.8 % (2-11); NRBC Pct Auto 0.4 /100WBC (0.0-0.2); Neutrophils Absolute Auto 6.6 x10*3/uL (2.0-8.3); Neutrophils Percent Auto 79.3 % (45-73); Platelet Count 214 X10*3/uL (160-400); Red Blood Count 2.57 X10*6/uL (4.60-5.80); Red Cell Distribution Width 15.4 % (11.0-16.0); White Blood Count 8.3 X10*3/uL (4.8-10.8)
[2023-01-05 06:56] LABS: INTERNATIONAL NORM RATIO 2.5 (0.9-1.1); Prothrombin Time 30.9 SEC (11.1-13.3)
[2023-01-05] MEDS: Albuterol/Iprat 2.5/0.5MG 3 ML AMPUL.NEB INHALE ×4 (07:38→19:45)
--- NOTE | 2023-01-05 07:49 | P.PNIM_ITS ---
Subjective Subjective Date of Service: 01/05/23 Interval History: Overall looking better, but renal failure resolved but sodium going up Physical Exam Vital Signs: Vital Signs: Last Vital Signs Temp 97 F 01/05/23 03:47 Pulse 92 01/05/23 07:39 Resp 20 01/05/23 07:39 BP 122/56 L 01/05/23 03:47 Pulse Ox 92 01/05/23 03:47 O2 Del Method Nasal Cannula 01/05/23 03:47 O2 Flow Rate 2.5 01/05/23 03:47 Oxygen Flow Rate 4 12/30/22 05:19 BMI result Body Mass Index 21.2 Const: Other: General: AO X 2, no acute distress Resp: CTA bilateral CVS: S1,S2, iregular ireular no leg edema GI: +BS, NT, no distention Skin: No rash Neuro: motor grossly intact Psych: appropriate affect Objective Data Active Medications Acetaminophen (Acetaminophen 325 Mg Tablet) 650 mg PO Q6H PRN PRN Reason: Pain, Mild (Pain Scale 1-3) Last Admin: 01/04/23 08:16 Dose: 650 mg Documented By: YADY Albuterol/Ipratropium (Albuterol/Iprat 2.5/0.5mg 3 Ml Ampul.Neb) 3 ml INHALE RQ4H WHILE AWAKE [facility] Last Admin: 01/05/23 07:38 Dose: 3 ml Documented By: CHICO Aspirin (Aspirin Enteric Coated 81 Mg Tablet.) 81 mg PO DAILY@1500 [facility] Last Admin: 01/04/23 15:55 Dose: 81 mg Documented By: YADY Atorvastatin Calcium (Atorvastatin Calcium 40 Mg Tablet) 40 mg PO BEDTIME [facility] Last Admin: 01/04/23 20:52 Dose: 40 mg Documented By: RADHA Calcium Carbonate/Cholecalciferol (Calcium + Vitamin D 250 Mg Tablet) 250 mg PO DAILY [facility] Last Admin: 01/04/23 08:03 Dose: 250 mg Documented By: YADY Cefuroxime Axetil (Cefuroxime Axetil 500 Mg Tablet) 500 mg PO BID [facility] Last Admin: 01/04/23 20:52 Dose: 500 mg Documented By: RADHA Digoxin (Digoxin 0.125 Mg Tablet) 0.125 mg PO SUMOWEFRSA@0900 [facility] Last Admin: 01/04/23 08:03 Dose: 0.125 mg Documented By: YADY Docusate Sodium (Docusate Sodium 100 Mg Capsule) 100 mg PO DAILY PRN PRN Reason: Constipation Last Admin: 01/04/23 17:41 Dose: 100 mg Documented By: YADY Ferrous Sulfate (Ferrous Sulfate 324 Mg Tablet.) 324 mg PO DAILY@1500 [facility] Last Admin: 01/04/23 15:54 Dose: 324 mg Documented By: YADY Folic Acid (Folic Acid 1 Mg Tablet) 1 mg PO DAILY [facility] Last Admin: 01/04/23 08:04 Dose: 1 mg Documented By: YADY Guaifenesin (Guaifenesin La 600 Mg Tab.Er.12h) 600 mg PO BID [facility] Last Admin: 01/04/23 20:52 Dose: 600 mg Documented By: RADHA Levalbuterol HCl (Levalbuterol Hcl 1.25 Mg/3 Ml Vial.[place]) 1.25 mg INHALE RQ4H PRN PRN Reason: Shortness of Breath/Wheezing Last Admin: 01/03/23 01:25 Dose: 1.25 mg Documented By: LADONNA Metoprolol Succinate (Metoprolol Succinate Er 50 Mg Tab.Er.24h) 50 mg PO TID [facility]; Protocol Last Admin: 01/04/23 20:52 Dose: 50 mg Documented By: RADHA Nicotine (Nicotine 14 Mg Patch.Td24) 14 mg TRANSDERMA DAILY [facility] Last Admin: 01/04/23 08:10 Dose: 14 mg Documented By: YADY Omeprazole (Omeprazole 20 Mg Capsule.) 20 mg PO BID@0630,1630 [facility] Last Admin: 01/05/23 05:56 Dose: 20 mg Documented By: RADHA Ondansetron HCl (Ondansetron Hcl 4 Mg/2 Ml Vial) 4 mg IVPUSH Q8H PRN PRN Reason: Nausea and Vomiting Prednisone (Prednisone 10 Mg Tablet) 10 mg PO DAILY [facility] Last Admin: 01/04/23 08:02 Dose: 10 mg Documented By: YADY Sodium Chloride (0.9 % Sodium Chloride Flush 3 Ml Syringe) 3 ml IVFLUSH QSHIFT [facility] Last Admin: 01/04/23 23:07 Dose: Not Given Documented By: RADHA Non-Admin Reason: Previously Administered Warfarin Sodium (Warfarin Sodium 0.5 Mg Halftab) 0.5 mg PO DAILY@1800 [facility] Last Admin: 01/04/23 17:40 Dose: 0.5 mg Documented By: YADY Labs 01/05/23 05:26 01/04/23 08:42 Labs: Laboratory Results - last 24 hr 01/04/23 01/05/23 01/05/23 08:42 05:26 05:26 MCV 103.9 H D MCH 32.3 MCHC 31.1 RDW 15.4 Plt Count 214 MPV 11.6 Immature Gran % (Auto) 1.3 H Neut % (Auto) 79.3 H Lymph % (Auto) 8.9 L Thomas % (Auto) 8.8 Eos % (Auto) 1.6 Baso % (Auto) 0.1 Lymph # (Auto) 0.7 L Thomas # (Auto) 0.7 Eos # (Auto) 0.1 Baso # (Auto) 0.0 Abs Immat Gran (auto) 0.11 H Absolute Neuts (auto) 6.6 Absolute Nucleated RBC 0.030 H Nucleated RBC % (auto) 0.4 H PT 30.9 H INR 2.5 H Anion Gap 15 Estim Creat Clear Calc 50.3 Estimated GFR 59 Random Glucose 146 H Calcium 8.7 Assessment and Plan (1) Acute kidney injury: Status: Acute (2) Community acquired pneumonia: Status: Acute (3) Acute respiratory failure with hypoxia: Status: Acute Plan 82-year-old male past medical history of COPD, CHF with reduced ejection fraction, lung cancer comes into the hospital with complaints of shortness of breath, cough, sputum production as well as increased weakness Patient presented with acute hypoxic respiratory failure and work up revealed pneumonia, copd exacerbation, decompensated heart failure and KISHAN. He was administered oxygen to correct hypoxia. # acute hypoxic respiratory failure d/t copd, heart failure and penumonia..Acute hypoxic respiratory failure has resolved with treatement of underlying issues. Hypoxia was treated with oxygen and has # acute COPD exacerbation--has been treated with bronchodilators by Neb and intravenous steroid that has now been changed to oral prednisone 10 mg and will treat for 2 more days #KISHAN on CKD, likely d/t cardiorenal syndrome. He presented with Creatinine of 1.63 and peaked at 1.7 and has improved to 1.15 as of 9/1, following diuresis with lasix. # Community-acquired pneumonia--Treated in hospital Ceftriaxone +Azithro 12/31 to 01/03 and , total of 7 days of Abx ending 01/06 with Ceftin 500 mg bid # acute systolic CHF exacerbation, Treated with IV Lasix with good effect. Lasix stopped d/t Hypernatremia #Hypernatremia--d/t free water deficit, higher today, so start D5W #Hyperkalemia-mild, Lokelma and repat lab later, K supplement stopped #Acute on chronic anemia-- # persistent AFib, rate controled on metoprolol and digoxin. INR was 3 when he presented and went up to 6 due to antibiotics, coumadin was on hold and until INR came back down to 3 and coumadin was restarted on 01/03 at 0.5 mg but will resume home regimen #Tobacco dependence--NRT DVT prophylaxis: Warfarin need for inpt: ongoing management for acute hypoxic resp failure, KISHAN PT is recommending STR when medically stable Time Spent With Patient Time: Total time managing care of this patient today ____ minutes. Quality Stroke Does the patient have a stroke diagnosis?: No VTE Prior VTE?: No VTE Risk Level:: Medical - moderate - high VTE Device Contraindication: Treatment Not Indicated VTE Drug Contraindication: N/A - Med Ordered
--- NOTE | 2023-01-05 08:28 | P.PNNP_ITS ---
Subjective Subjective Date of Service: 01/05/23 Interval history: Overall continues to improve, breathing is more comfortable, less congested, renal failure has resolved. Hypernatremic and hyperkalemic Physical Exam Vital Signs: Vital Signs: Last Vital Signs Temp 96.8 F 01/05/23 08:00 Pulse 97 01/05/23 08:00 Resp 18 01/05/23 08:00 BP 114/72 01/05/23 08:00 Pulse Ox 91 L 01/05/23 08:00 O2 Del Method Nasal Cannula 01/05/23 08:00 O2 Flow Rate 2 01/05/23 08:00 Oxygen Flow Rate 4 12/30/22 05:19 BMI result Body Mass Index 21.2 Const: Other: General: AO X 2, no acute distress Resp: CTA bilateral CVS: S1,S2, iregular ireular no leg edema GI: +BS, NT, no distention Skin: No rash Neuro: motor grossly intact Psych: appropriate affect General: cooperative and no acute distress Orientation/consciousness: patient oriented x3 Eyes: General: appearance normal, both eyes and all related structures Resp: Other: On non-rebreather, diffuse rhonchi Effort & Inspection: normal respiratory effort Cardio: Rate: regular rate Rhythm: regular rhythm GI: Palpation (GI): Soft to palpation Auscultation: normal bowel sounds Skin: General skin exam: no rashes or lesions noted Neuro: General: patient oriented x3 Cognition (Neuro): normal cognition Extrem: Other: No pitting edema General: Yes normal to inspection and Yes no pedal edema Objective Data Labs 01/05/23 05:26 01/04/23 08:42 Labs: Laboratory Results - last 24 hr 01/04/23 01/05/23 01/05/23 08:42 05:26 05:26 WBC 8.3 RBC 2.57 L Hgb 8.3 L Hct 26.7 L D MCV 103.9 H D MCH 32.3 MCHC 31.1 RDW 15.4 Plt Count 214 MPV 11.6 Immature Gran % (Auto) 1.3 H Neut % (Auto) 79.3 H Lymph % (Auto) 8.9 L [place] % (Auto) 8.8 Eos % (Auto) 1.6 Baso % (Auto) 0.1 Lymph # (Auto) 0.7 L [place] # (Auto) 0.7 Eos # (Auto) 0.1 Baso # (Auto) 0.0 Abs Immat Gran (auto) 0.11 H Absolute Neuts (auto) 6.6 Absolute Nucleated RBC 0.030 H Nucleated RBC % (auto) 0.4 H PT 30.9 H INR 2.5 H Sodium 147 H Potassium 5.4 H Chloride 106 Carbon Dioxide 31 H Anion Gap 15 BUN 98 H Creatinine 1.18 Estim Creat Clear Calc 50.3 Estimated GFR 59 Random Glucose 146 H Calcium 8.7 Microbiology Microbiology Results: Microbiology 12/30/22 00:42 Blood - Venous Blood Culture - Final No growth after 5 days. 12/30/22 00:42 Blood - Venous Blood Culture - Final No growth after 5 days. Procedures Date of Service Date of Service: 01/05/23 Assessment & Plan Assessment and plan (1) Hypernatremia: Status: Acute Assessment and Plan: 82 yo man with KISHAN in setting of PNA, now KISHAN resolved Has hypernatremia due to poor po intake and ongoing free water deficit (2) Hyperkalemia: Status: Acute Assessment and Plan: Likelyy due to combination of effects of digoxin on ATPase and metoprolol; causing transcell shift; also inadeq distal tubule sodium delivery Plan PLEASE START 1/2 NORMAL SALINE AT 75/HR TO PROVICE FREE WATER AND DELIVER SOME SODIUM TO DISTAL TUBULE CONSIDER ALTERNATIVE TO DIGOXIN Time Spent With Patient Time: Total time managing care of this patient today ____ minutes. Progress Note: Quality Stroke Does the patient have a stroke diagnosis?: No
[2023-01-05 09:08] LABS: Anion Gap 10 (12-20); Blood Urea Nitrogen 85 mg/dL (9-16); Calcium 9.1 mg/dL (8.4-10.2); Carbon Dioxide 37 mmol/L (22-29); Chloride 108 mmol/L (96-108); Estimated Glomerular Filt Rate > 60; Glucose Random 124 mg/dL (60-115); Potassium 5.4 mmol/L (3.3-5.1); Sodium 150 mmol/L (135-145)
[2023-01-05] MEDS: Calcium + Vitamin D 250 MG TABLET PO (09:36)
[2023-01-05] MEDS: predniSONE 10 MG TABLET PO (09:36)
[2023-01-05] MEDS: Folic Acid 1 MG TABLET PO (09:36)
[2023-01-05] MEDS: guaiFENesin LA 600 MG TAB.ER.12H PO ×2 (09:36→20:30)
[2023-01-05] MEDS: 0.9 % Sodium Chloride Flush 3 ML SYRINGE IVFLUSH (09:37)
[2023-01-05] MEDS: Sodium Zirconium Cyclosilicate 10 GM POWD.PACK PO (09:37)
[2023-01-05] MEDS: Nicotine 14 MG PATCH.TD24 TRANSDERMA (09:37)
[2023-01-05] MEDS: Digoxin 0.125 MG TABLET PO (09:37)
[2023-01-05] MEDS: Metoprolol Succinate ER 50 MG TAB.ER.24H PO ×3 (09:37→20:30)
[2023-01-05] MEDS: Dextrose 5 % 1,000 ML 100 ML IVCONT ×2 (09:56→23:09)
[2023-01-05] MEDS: Acetaminophen 325 MG TABLET 650 MG PO (15:32)
[2023-01-05] MEDS: Aspirin Enteric Coated 81 MG TABLET.DR PO (16:24)
[2023-01-05] MEDS: Ferrous Sulfate 324 MG TABLET.DR PO (16:24)
[2023-01-05] MEDS: Warfarin Sodium 0.5 MG HALFTAB PO (17:07)
--- NOTE | 2023-01-05 17:16 | PC.NURSE ---
Assume care at 07:00. Alert to drowy, oriented to person, place, vague to situation, disoriented to time. Patient follows commands, moves all extremities, is 2 assist with kalen steady to commode or recliner. Incontinent to B&B, uses briefs. Copious formed dark tarry BM today to commode and in briefs x3 , noted to have a drop in hgb over 24 hours from 10 to 8 g/dl, MD aware. Patient also on iron tablets. Patient reported WOB was 6/10, he had duoneb this morning, loose nonproductive cough, coarse LS throughout. DIscussed with MD and order for mucomyst, discussed chest pt with MD. Patient using flutter valve and cough and deep breathing with effect. Patient with episodes of RR of 40 short shallow, MD notified, came to bedside to assess. Patient had SpO2 95-97% on 2.5 L, titrated down to 2 LPM, with SpO2 of 97% with flutter valve. Reported 7/10 generalized pain, MD notified and tylenol given with results pending.
[2023-01-05] MEDS: Acetylcysteine 10 % 400 MG/4 ML VIAL 600 MG INHALE (19:45)
[2023-01-05] MEDS: Atorvastatin Calcium 40 MG TABLET PO (20:30)
[2023-01-06] MEDS: Omeprazole 20 MG CAPSULE.DR PO ×2 (05:27→15:39)
[2023-01-06 06:45] LABS: INTERNATIONAL NORM RATIO 3.3 (0.9-1.1); Prothrombin Time 39.8 SEC (11.1-13.3)
[2023-01-06] MEDS: Albuterol/Iprat 2.5/0.5MG 3 ML AMPUL.NEB INHALE ×3 (07:45→20:15)
[2023-01-06 07:46] VITALS: PULSE 78; RESP 20; O2SAT 93
[2023-01-06 07:54] LABS: Hemoglobin 7.3 g/dl (14.0-18.0); Mean Corpuscular HGB Conc 31.7 g/dl (31.0-36.0); Mean Corpuscular Hemoglobin 32.7 pg (27.0-33.0); Mean Corpuscular Volume 103.1 fL (80.0-98.0); Mean Platelet Volume 11.1 fL (9.4-12.4); NRBC Pct Auto 0.6 /100WBC (0.0-0.2); Platelet Count 195 X10*3/uL (160-400); Red Blood Count 2.23 X10*6/uL (4.60-5.80); Red Cell Distribution Width 15.6 % (11.0-16.0); White Blood Count 12.2 X10*3/uL (4.8-10.8)
[2023-01-06 08:00] VITALS: BP 123/68; PULSE 109; RESP 18; TEMP 36.3; O2SAT 93
[2023-01-06 08:27] LABS: Anion Gap 9 (12-20); Blood Urea Nitrogen 79 mg/dL (9-16); Calcium 8.3 mg/dL (8.4-10.2); Carbon Dioxide 34 mmol/L (22-29); Chloride 105 mmol/L (96-108); Creatinine Clr Calc Pharmacy 59.9; Estimated Glomerular Filt Rate > 60; Glucose Random 141 mg/dL (60-115); Sodium 143 mmol/L (135-145)
[2023-01-06] MEDS: Acetaminophen 325 MG TABLET 650 MG PO ×2 (08:51→17:04)
[2023-01-06] MEDS: Nicotine 14 MG PATCH.TD24 TRANSDERMA (08:51)
[2023-01-06] MEDS: Folic Acid 1 MG TABLET PO (08:52)
[2023-01-06] MEDS: Metoprolol Succinate ER 50 MG TAB.ER.24H PO ×3 (08:52→20:34)
[2023-01-06] MEDS: guaiFENesin LA 600 MG TAB.ER.12H PO ×2 (08:52→20:34)
[2023-01-06] MEDS: Digoxin 0.125 MG TABLET PO (08:52)
[2023-01-06] MEDS: predniSONE 10 MG TABLET PO (08:52)
[2023-01-06] MEDS: Calcium + Vitamin D 250 MG TABLET PO (08:52)
[2023-01-06] MEDS: 0.9 % Sodium Chloride Flush 3 ML SYRINGE IVFLUSH ×2 (08:52→20:34)
--- NOTE | 2023-01-06 09:04 | HO.PM.IMPN ---
Subjective Subjective Date of Service: 01/06/23 Interval History: Breathing is better, sodium is better, H/H is trending down Review of Systems Constitutional : No Weight loss, No Fever, No Chills, No Night Sweats, No Fatigue, No Malaise ENT/Mouth : No Hearing loss, No Ear Pain, No Nasal Congestion, No Sinus Pain, No Hoarseness, No sore throat, No Rhinorrhea, No Swallowing Difficulty Eyes: No Eye Pain, No Swelling, No Redness, No Foreign Body, No Discharge, No Vision Changes Cardiovascular : No Chest Pain, No SOB, complaining of Dyspnea on Exertion, No Orthopnea, No Edema, No Palpitations Respiratory : Patient complaining of cough with sputum production, no wheezing, mild shortness of breath Gastrointestinal : No Nausea, No Vomiting, No Diarrhea, No Constipation, No abdominal Pain, No Hematochezia, No Melena Genitourinary : no irregular bleeding, No Dysuria, No Urinary Frequency, No Hematuria, No Urinary Incontinence, No Urgency, No Flank Pain, No Urinary Flow Changes, No Hesitancy Musculoskeletal : No joint pain, No Myalgias, No Joint Swelling Skin : No Skin Lesions, No rash Neuro : No Weakness, No Numbness, No Paresthesias, No Loss of Consciousness, No Dizziness, No Headache Psych : No Anxiety/Panic, No Depression, No SI/HI/AH/VH, No Social Issues, Heme/Lymph: No Bruising, No Bleeding,No Lymphadenopathy Endocrine : No Polyuria, No Polydipsia, No Temperature Intolerance Physical Exam Vital Signs: Vital Signs: Last Vital Signs Temp 97.4 F 01/06/23 08:00 Pulse 109 H 01/06/23 08:00 Resp 18 01/06/23 08:00 BP 123/68 01/06/23 08:00 Pulse Ox 93 01/06/23 08:00 O2 Del Method Nasal Cannula 01/06/23 08:00 O2 Flow Rate 2 01/05/23 23:54 Oxygen Flow Rate 4 12/30/22 05:19 BMI result Body Mass Index 21.2 Const: Other: General: AO X 2, no acute distress Resp: CTA bilateral CVS: S1,S2, iregular ireular no leg edema GI: +BS, NT, no distention Skin: No rash Neuro: motor grossly intact Psych: appropriate affect Objective Data Active Medications Acetaminophen (Acetaminophen 325 Mg Tablet) 650 mg PO Q6H PRN PRN Reason: Pain, Mild (Pain Scale 1-3) Last Admin: 01/06/23 08:51 Dose: 650 mg Documented By: DURGA Acetylcysteine (Acetylcysteine 10 % 400 Mg/4 Ml Vial) 600 mg INHALE RBID [facility] Stop: 01/06/23 20:01 Last Admin: 01/06/23 07:44 Dose: Not Given Documented By: CHICO Non-Admin Reason: Med Not Available Albuterol/Ipratropium (Albuterol/Iprat 2.5/0.5mg 3 Ml Ampul.Neb) 3 ml INHALE RQ4H WHILE AWAKE [facility] Last Admin: 01/06/23 07:45 Dose: 3 ml Documented By: CHICO Aspirin (Aspirin Enteric Coated 81 Mg Tablet.) 81 mg PO DAILY@1500 [facility] Last Admin: 01/05/23 16:24 Dose: 81 mg Documented By: ANTONIO Atorvastatin Calcium (Atorvastatin Calcium 40 Mg Tablet) 40 mg PO BEDTIME [facility] Last Admin: 01/05/23 20:30 Dose: 40 mg Documented By: CASTILYaron Calcium Carbonate/Cholecalciferol (Calcium + Vitamin D 250 Mg Tablet) 250 mg PO DAILY [facility] Last Admin: 01/06/23 08:52 Dose: 250 mg Documented By: DURGA Cefuroxime Axetil (Cefuroxime Axetil 500 Mg Tablet) 500 mg PO BID [facility] Last Admin: 01/06/23 08:52 Dose: 500 mg Documented By: DURGA Digoxin (Digoxin 0.125 Mg Tablet) 0.125 mg PO SUMOWEFRSA@0900 [facility] Last Admin: 01/06/23 08:52 Dose: 0.125 mg Documented By: DURGA Docusate Sodium (Docusate Sodium 100 Mg Capsule) 100 mg PO DAILY PRN PRN Reason: Constipation Last Admin: 01/04/23 17:41 Dose: 100 mg Documented By: YADY Ferrous Sulfate (Ferrous Sulfate 324 Mg Tablet.) 324 mg PO DAILY@1500 [facility] Last Admin: 01/05/23 16:24 Dose: 324 mg Documented By: ANTONIO Folic Acid (Folic Acid 1 Mg Tablet) 1 mg PO DAILY [facility] Last Admin: 01/06/23 08:52 Dose: 1 mg Documented By: DRUGA Guaifenesin (Guaifenesin La 600 Mg Tab.Er.12h) 600 mg PO BID [facility] Last Admin: 01/06/23 08:52 Dose: 600 mg Documented By: DURGA Dextrose (D5w) 1,000 mls @ 100 mls/hr IVCONT .Q10H [facility] Last Admin: 01/06/23 05:29 Dose: Not Given Documented By: THU Non-Admin Reason: IV Running Metoprolol Succinate (Metoprolol Succinate Er 50 Mg Tab.Er.24h) 50 mg PO TID [facility]; Protocol Last Admin: 01/06/23 08:52 Dose: 50 mg Documented By: DURGA Nicotine (Nicotine 14 Mg Patch.Td24) 14 mg TRANSDERMA DAILY [facility] Last Admin: 01/06/23 08:51 Dose: 14 mg Documented By: DURGA Omeprazole (Omeprazole 20 Mg Capsule.Dr) 20 mg PO BID@0630,1630 [facility] Last Admin: 01/06/23 05:27 Dose: 20 mg Documented By: THU Ondansetron HCl (Ondansetron Hcl 4 Mg/2 Ml Vial) 4 mg IVPUSH Q8H PRN PRN Reason: Nausea and Vomiting Prednisone (Prednisone 10 Mg Tablet) 10 mg PO DAILY [facility] Last Admin: 01/06/23 08:52 Dose: 10 mg Documented By: DURGA Sodium Chloride (0.9 % Sodium Chloride Flush 3 Ml Syringe) 3 ml IVFLUSH QSHIFT [facility] Last Admin: 01/06/23 08:52 Dose: 3 ml Documented By: DURGA Labs 01/06/23 07:39 01/06/23 07:39 Labs: Laboratory Results - last 24 hr 01/05/23 01/06/23 01/06/23 08:17 05:34 07:39 MCV MCH MCHC RDW Plt Count MPV Absolute Nucleated RBC Nucleated RBC % (auto) PT 39.8 H D INR 3.3 H Anion Gap 10 L 9 L Estim Creat Clear Calc 52.0 59.9 Estimated GFR > 60 > 60 Random Glucose 124 H 141 H Calcium 9.1 8.3 L D Blood Type Antibody Screen 01/06/23 01/06/23 07:39 07:39 MCV 103.1 H MCH 32.7 MCHC 31.7 RDW 15.6 Plt Count 195 MPV 11.1 Absolute Nucleated RBC 0.070 H Nucleated RBC % (auto) 0.6 H PT INR Anion Gap Estim Creat Clear Calc Estimated GFR Random Glucose Calcium Blood Type A Positive Antibody Screen NEGATIVE Assessment and Plan (1) Acute kidney injury: Status: Acute (2) Community acquired pneumonia: Status: Acute (3) Acute respiratory failure with hypoxia: Status: Acute Plan 82-year-old male past medical history of COPD, CHF with reduced ejection fraction, lung cancer comes into the hospital with complaints of shortness of breath, cough, sputum production as well as increased weakness Patient presented with acute hypoxic respiratory failure and work up revealed pneumonia, copd exacerbation, decompensated heart failure and KISHAN. antelmo. # acute hypoxic respiratory failure d/t copd, heart failure and penumonia..Acute hypoxic respiratory failure has resolved with treatement of underlying issues. Continue to wean off O2 # acute COPD exacerbation- treated with bronchodilators by Neb and intravenous steroid, later changed to Prednisone. Stop prednisne at this time #KISHAN on CKD, likely d/t cardiorenal syndrome. He presented with Creatinine of 1.63 and peaked at 1.7 and has improved to 0.99 as of 01/06, # Community-acquired pneumonia--Treated in hospital Ceftriaxone +Azithro 12/31 to 01/03 and , total of 7 days of Abx ending 01/06 with Ceftin 500 mg bid # acute systolic CHF exacerbation, Treated with IV Lasix with good effect. Lasix stopped d/t Hypernatremia #Hypernatremia--d/t free water deficit, corrected with D5, sodium is now 143 #HypErkalemia-mild, Lokelma and repat lab later, K supplement stopped #Acute on chronic anemia-- # persistent AFib, rate controled on metoprolol and digoxin. INR was 3 when he presented and went up to 6 due to antibiotics, coumadin was on hold and until INR came back down to 3 and coumadin was restarted on 01/03 at 0.5 mg but will resume home regimen #Tobacco dependence--NRT DVT prophylaxis: Warfarin need for inpt: ongoing management for acute hypoxic resp failure, KISHAN PT is recommending STR when medically stable Time Spent With Patient Time: Total time managing care of this patient today ____ minutes. Quality Stroke Does the patient have a stroke diagnosis?: No VTE Prior VTE?: No VTE Risk Level:: Medical - moderate - high VTE Device Contraindication: Treatment Not Indicated VTE Drug Contraindication: N/A - Med Ordered
[2023-01-06] MEDS: Dextrose 5 % 1,000 ML 100 ML IVCONT (09:13)
[2023-01-06] MEDS: Docusate Sodium 100 MG CAPSULE PO (09:18)
[2023-01-06 11:17] VITALS: PULSE 91; RESP 18; O2SAT 93
[2023-01-06] MEDS: Aspirin Enteric Coated 81 MG TABLET.DR PO (14:12)
[2023-01-06] MEDS: Ferrous Sulfate 324 MG TABLET.DR PO (14:12)
[2023-01-06 15:16] VITALS: BP 112/82; PULSE 85; RESP 20; TEMP 36.1; O2SAT 96
[2023-01-06 19:25] VITALS: BP 120/77; PULSE 116; RESP 20; TEMP 36.7; O2SAT 97
[2023-01-06] MEDS: Acetylcysteine 10 % 400 MG/4 ML VIAL 600 MG INHALE (20:15)
[2023-01-06 20:18] VITALS: PULSE 110; RESP 20; O2SAT 96
[2023-01-06] MEDS: Atorvastatin Calcium 40 MG TABLET PO (20:34)
[2023-01-07] VITALS (12 sets, daily range): BP systolic 116–144; BP diastolic 56–71; PULSE 77–99; RESP 14–22; TEMP 36–36.9; O2SAT 94–98
[2023-01-07] MEDS: Dextrose 5 % 1,000 ML 100 ML IVCONT (01:16)
[2023-01-07] MEDS: Omeprazole 20 MG CAPSULE.DR PO (05:19)
[2023-01-07 06:18] LABS: Mean Corpuscular Hemoglobin 32.8 pg (27.0-33.0); Mean Corpuscular Volume 102.5 fL (80.0-98.0); Mean Platelet Volume 11.6 fL (9.4-12.4); NRBC Pct Auto 0.6 /100WBC (0.0-0.2); Platelet Count 183 X10*3/uL (160-400); Red Blood Count 1.98 X10*6/uL (4.60-5.80); Red Cell Distribution Width 15.7 % (11.0-16.0); White Blood Count 8.7 X10*3/uL (4.8-10.8)
[2023-01-07 06:25] LABS: Hemoglobin 6.5 g/dl (14.0-18.0)
[2023-01-07 06:26] LABS: Hematocrit 20.3 % (42.0-52.0)
[2023-01-07 06:32] LABS: INTERNATIONAL NORM RATIO 3.2 (0.9-1.1); Prothrombin Time 38.5 SEC (11.1-13.3)
[2023-01-07 06:40] LABS: Anion Gap 11 (12-20); Blood Urea Nitrogen 67 mg/dL (9-16); Calcium 7.9 mg/dL (8.4-10.2); Carbon Dioxide 31 mmol/L (22-29); Chloride 103 mmol/L (96-108); Creatinine Clr Calc Pharmacy 61.8; Estimated Glomerular Filt Rate > 60; Glucose Random 132 mg/dL (60-115); Potassium 4.9 mmol/L (3.3-5.1); Sodium 140 mmol/L (135-145)
[2023-01-07] MEDS: Folic Acid 1 MG TABLET PO (09:43)
[2023-01-07] MEDS: guaiFENesin LA 600 MG TAB.ER.12H PO ×2 (09:43→20:37)
[2023-01-07] MEDS: Calcium + Vitamin D 250 MG TABLET PO (09:43)
[2023-01-07] MEDS: Metoprolol Succinate ER 50 MG TAB.ER.24H PO ×3 (09:43→20:37)
[2023-01-07] MEDS: Nicotine 14 MG PATCH.TD24 TRANSDERMA (09:43)
[2023-01-07] MEDS: Albuterol/Iprat 2.5/0.5MG 3 ML AMPUL.NEB INHALE ×2 (11:26→18:41)
--- NOTE | 2023-01-07 14:27 | P.PNIM_ITS ---
Subjective Subjective Date of Service: 01/07/23 Interval History: Sitting in chair, offers no acute complaints denies nausea vomiting hematemesis or melena, receiving blood transfusion, no fevers, no chills, denies shortness of breath, no chest pain, no abdominal discomfort, noted to have significant drop in hematocrit. Review of Systems All other system reviewed and negative. Physical Exam Vital Signs: Vital Signs: Last Vital Signs Temp 98.2 F 01/07/23 14:12 Pulse 98 01/07/23 14:12 Resp 14 01/07/23 14:12 BP 124/56 L 01/07/23 14:12 Pulse Ox 98 01/07/23 08:00 O2 Del Method Nasal Cannula 01/07/23 08:00 O2 Flow Rate 2.0 01/07/23 08:00 Oxygen Flow Rate 4 12/30/22 05:19 BMI result Body Mass Index 21.2 Const: Other: General: Sitting comfortably, awake alert in no acute distress Neck no JVD Resp:? CTA bilateral CVS: S1,S2, irregular , no leg edema GI: +BS, NT, no distention Skin: No rash Neuro:? motor grossly intact Psych: appropriate affect Objective Data Active Medications Acetaminophen (Acetaminophen 325 Mg Tablet) 650 mg PO Q6H PRN PRN Reason: Pain, Mild (Pain Scale 1-3) Last Admin: 01/06/23 17:04 Dose: 650 mg Documented By: MALIA Albuterol/Ipratropium (Albuterol/Iprat 2.5/0.5mg 3 Ml Ampul.Neb) 3 ml INHALE RQ4H WHILE AWAKE [facility] Last Admin: 01/07/23 11:26 Dose: 3 ml Documented By: LUZ MARIA Aspirin (Aspirin Enteric Coated 81 Mg Tablet.) 81 mg PO DAILY@1500 [facility] Last Admin: 01/06/23 14:12 Dose: 81 mg Documented By: DURGA Atorvastatin Calcium (Atorvastatin Calcium 40 Mg Tablet) 40 mg PO BEDTIME [facility] Last Admin: 01/06/23 20:34 Dose: 40 mg Documented By: CARLEY Calcium Carbonate/Cholecalciferol (Calcium + Vitamin D 250 Mg Tablet) 250 mg PO DAILY [facility] Last Admin: 01/07/23 09:43 Dose: 250 mg Documented By: SHYAM Digoxin (Digoxin 0.125 Mg Tablet) 0.125 mg PO SUMOWEFRSA@0900 [facility] Last Admin: 01/06/23 08:52 Dose: 0.125 mg Documented By: DURGA Docusate Sodium (Docusate Sodium 100 Mg Capsule) 100 mg PO DAILY PRN PRN Reason: Constipation Last Admin: 01/06/23 09:18 Dose: 100 mg Documented By: DURGA Ferrous Sulfate (Ferrous Sulfate 324 Mg Tablet.) 324 mg PO DAILY@1500 [facility] Last Admin: 01/06/23 14:12 Dose: 324 mg Documented By: DURGA Folic Acid (Folic Acid 1 Mg Tablet) 1 mg PO DAILY [facility] Last Admin: 01/07/23 09:43 Dose: 1 mg Documented By: SHYAM Guaifenesin (Guaifenesin [place] 600 Mg Tab.Er.12h) 600 mg PO BID [facility] Last Admin: 01/07/23 09:43 Dose: 600 mg Documented By: SHYAM Metoprolol Succinate (Metoprolol Succinate Er 50 Mg Tab.Er.24h) 50 mg PO TID [facility]; Protocol Last Admin: 01/07/23 09:43 Dose: 50 mg Documented By: SHYAM Nicotine (Nicotine 14 Mg Patch.Td24) 14 mg TRANSDERMA DAILY [facility] Last Admin: 01/07/23 09:43 Dose: 14 mg Documented By: SHYAM Omeprazole (Omeprazole 20 Mg Capsule.) 20 mg PO BID@0630,1630 [facility] Last Admin: 01/07/23 05:19 Dose: 20 mg Documented By: CARLEY Ondansetron HCl (Ondansetron Hcl 4 Mg/2 Ml Vial) 4 mg IVPUSH Q8H PRN PRN Reason: Nausea and Vomiting Sodium Chloride (0.9 % Sodium Chloride Flush 3 Ml Syringe) 3 ml IVFLUSH QSHIFT [facility] Last Admin: 01/07/23 09:40 Dose: Not Given Documented By: SHYAM Non-Admin Reason: IV Running Labs 01/07/23 05:51 01/07/23 05:51 Labs: Laboratory Results - last 24 hr 01/06/23 01/07/23 01/07/23 07:39 05:51 05:51 MCV 102.5 H MCH 32.8 MCHC 32.0 RDW 15.7 Plt Count 183 MPV 11.6 Absolute Nucleated RBC 0.050 H Nucleated RBC % (auto) 0.6 H PT INR Anion Gap 11 L Estim Creat Clear Calc 61.8 Estimated GFR > 60 Random Glucose 132 H Calcium 7.9 L Blood Type A Positive Antibody Screen NEGATIVE Crossmatch See Detail 01/07/23 05:51 MCV MCH MCHC RDW Plt Count MPV Absolute Nucleated RBC Nucleated RBC % (auto) PT 38.5 H INR 3.2 H Anion Gap Estim Creat Clear Calc Estimated GFR Random Glucose Calcium Blood Type Antibody Screen Crossmatch Assessment and Plan (1) Acute kidney injury: Status: Acute (2) Community acquired pneumonia: Status: Acute (3) Acute respiratory failure with hypoxia: Status: Acute Plan 82-year-old male past medical history of COPD, CHF with reduced ejection fraction, lung cancer comes into the hospital with complaints of shortness of breath, cough, sputum production as well as increased weakness Patient presented with acute hypoxic respiratory failure and work up revealed pneumonia, copd exacerbation, decompensated heart failure and KISHAN. #Acute on chronic anemia-noted to have significant drop in hematocrit 20.3, from admission hematocrit of 35.5, no active bleeding noted, patient with history of chronic anemia status post upper endoscopy and video capsule study that showed gastritis, esophagitis and small bowel bleeding, normal colonoscopy July 2021 , 2 units of packed RBC ordered, check stool guaiac Will DC prednisone, Coumadin, aspirin, change po Prilosec to IV Protonix, follow CBC post transfusion Consult GI # acute hypoxic respiratory failure d/t copd, heart failure and penumonia..Acute hypoxic respiratory failure has resolved with treatement of underlying issues. Continue to wean off O2 # acute COPD exacerbation- treated with bronchodilators and intravenous steroid, later changed to Prednisone. Will discontinue prednisone. #KISHAN on CKD, likely d/t cardiorenal syndrome. He presented with Creatinine of 1.63 and peaked at 1.7 and now normalized with creatinine 0.96 today, holding valsartan # Community-acquired pneumonia--Treated in hospital Ceftriaxone +Azithro 12/31 to 01/03 and , total of 7 days of Abx , will discontinue Ceftin 500 mg bid today # acute systolic CHF exacerbation, Treated with IV Lasix with good effect. Lasix stopped d/t Hypernatremia, appears euvolemic , monitor closely while being transfused with 2 units of blood #Hypernatremia--d/t free water deficit, corrected with D5, sodium is now 140 #Hyperkalemia-s/p Lokelma and K supplement stopped, potassium normalized 4.9 today valsartan discontinued. # persistent AFib, rate controled on metoprolol and digoxin. INR was 3 when he presented and went up to 6 due to antibiotics, coumadin was on hold, until INR came back down to 3 and coumadin was restarted on 01/03 at 0.5 mg , INR 3.2 today will hold Coumadin due to anemia follow PT INR. #Tobacco dependence--continue nicotine replacement therapy. DVT prophylaxis: Hold Warfarin due to anemia will place on compression boots need for inpt: ongoing management for acute hypoxic resp failure, KISHAN PT is recommending STR when medically stable, patient lives alone at home, spoke with patient's daughter patient makes his own decisions, will talk to patient regarding discharge plans once medically stable. Time Spent With Patient Time: Total time managing care of this patient today ____ minutes. Quality Stroke Does the patient have a stroke diagnosis?: No VTE Prior VTE?: No VTE Risk Level:: Medical - moderate - high VTE Device Contraindication: Treatment Not Indicated VTE Drug Contraindication: N/A - Med Ordered
[2023-01-07] MEDS: Ferrous Sulfate 324 MG TABLET.DR PO (15:15)
[2023-01-07] MEDS: Pantoprazole Sodium 40 MG/10 ML VIAL IVPUSH (17:00)
--- NOTE | 2023-01-07 17:02 | PM.EVENT ---
Event Note Date of Service: 01/07/23 Event Note: GI consult dictated. Anemia no signs of gi bleeding at this time. agree with transfusion monitor hct ppi for hx of gastritis and duodenitis. Time Spent With Patient Time: Total time managing care of this patient today ____ minutes.
[2023-01-07 19:09] LABS: OBS Int Ctl Valid YES; OBS1 POSITIVE (NEGATIVE)
[2023-01-07] MEDS: 0.9 % Sodium Chloride Flush 3 ML SYRINGE IVFLUSH (20:37)
[2023-01-07] MEDS: Atorvastatin Calcium 40 MG TABLET PO (20:37)
[2023-01-08] VITALS (8 sets, daily range): BP systolic 117–134; BP diastolic 57–63; PULSE 79–97; RESP 16–20; TEMP 36–36.9; O2SAT 92–96
--- NOTE | 2023-01-08 00:26 | CONS_ITS ---
DATE OF SERVICE: 01/07/2023 REFERRING PHYSICIAN: Dr. Castaneda REASON FOR CONSULTATION: Anemia. HISTORY OF PRESENT ILLNESS: The patient is a pleasant 82-year-old man who was admitted to the hospital on December 30 with complaints of weakness, cough, and sputum. He was diagnosed with pneumonia, COPD exacerbation, and congestive heart failure and treated supportively with oxygen and antibiotics. He had a decrease in his hematocrit following an elevated INR, which was as high as 6.7 on 01/01. His hematocrit, which was 36.7 on admission, dropped to 20.3 this morning. He currently is receiving 2 units of packed red blood cells in transfusion. He has had no GI bleeding since admission and in fact is constipated, requesting something to help with that. He does have a previous history of GI bleeding and underwent upper endoscopy and colonoscopy in June 2021, which showed erosive gastritis and duodenitis. In July of that year, he underwent upper endoscopy and colonoscopy because of anemia and Hemoccult-positive stools. Upper endoscopy was normal. Colonoscopy was limited by a poor prep for detection of small polyps, but no bleeding source was identified. Following that, he underwent a capsule endoscopy, which was nondiagnostic because of the capsule staying in the esophagus and stomach for a prolonged time. He then underwent endoscopy with capsule placement in December of last year, which showed no obvious bleeding source and some mild duodenitis. The capsule report is reviewed and is interpreted as showing small bowel bleeding and he was advised to come to the emergency room if he saw blood in his stools but reports that he had no bleeding. PAST MEDICAL HISTORY: 1. GI bleeding as above. 2. Lung cancer. 3. COPD. 4. Congestive heart failure. 5. Atrial fibrillation, on Coumadin. 6. Hyperlipidemia. 7. Peripheral arterial disease. 8. Coronary artery disease. 9. Neuropathy. 10. Osteoarthritis. 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 CURRENT MEDICATIONS: Current medication list is reviewed in the chart. ALLERGIES: THERE ARE NONE REPORTED. FAMILY HISTORY: This is reviewed with the patient and is noncontributory. SOCIAL HISTORY: He formerly used tobacco. REVIEW OF SYSTEMS: SKIN: No pruritus. HEENT: Negative. CARDIOPULMONARY: No shortness of breath or chest pain. GASTROINTESTINAL: As above. GENITOURINARY: Negative. NEUROPSYCHIATRIC: Negative. PHYSICAL EXAMINATION: GENERAL: Shows a pleasant male, sitting comfortably in a chair. VITAL SIGNS: Reviewed in the electronic medical record and are stable. SKIN: Anicteric. HEENT: Shows no scleral icterus. NECK: Without lymphadenopathy or thyromegaly. LUNGS: Clear. HEART: Shows an irregular S1, S2. No murmur. ABDOMEN: Soft without focal masses or tenderness. No ecchymoses are present. Bowel sounds are present. No organomegaly is noted. EXTREMITIES: Show multiple ecchymoses. LABORATORY DATA: Reviewed. IMPRESSION: Anemia. At this time, there does not appear to be any active GI bleeding. If he did lose a significant amount of blood from his GI tract, he should have had melena or red blood per rectum and that has not been the case. I agree with treating him with a proton pump inhibitor empirically because of his prior history of gastritis and duodenitis. I do not think he needs lower GI tract endoscopy at this time or upper endoscopy. 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 Thanks for asking me to see him. I will follow him in the hospital with you. MD SVEN Jerez/SADAF / [id number]
[2023-01-08] MEDS: Pantoprazole Sodium 40 MG/10 ML VIAL IVPUSH ×2 (05:45→15:56)
[2023-01-08 06:34] LABS: Hematocrit 24.6 % (42.0-52.0); Hemoglobin 7.7 g/dl (14.0-18.0); Mean Corpuscular HGB Conc 31.3 g/dl (31.0-36.0); Mean Corpuscular Volume 99.2 fL (80.0-98.0); Mean Platelet Volume 11.4 fL (9.4-12.4); NRBC Pct Auto 0.4 /100WBC (0.0-0.2); Platelet Count 195 X10*3/uL (160-400); Red Blood Count 2.48 X10*6/uL (4.60-5.80); Red Cell Distribution Width 18.4 % (11.0-16.0); White Blood Count 7.9 X10*3/uL (4.8-10.8)
[2023-01-08 06:52] LABS: Anion Gap 10 (12-20); Blood Urea Nitrogen 55 mg/dL (9-16); Calcium 8.1 mg/dL (8.4-10.2); Carbon Dioxide 33 mmol/L (22-29); Chloride 105 mmol/L (96-108); Creatinine Clr Calc Pharmacy 62.5; Estimated Glomerular Filt Rate > 60; Glucose Random 100 mg/dL (60-115); Potassium 4.9 mmol/L (3.3-5.1); Sodium 143 mmol/L (135-145)
--- NOTE | 2023-01-08 07:42 | P.CDIM_ITS ---
PROVIDER RESPONSE TEXT: To clarify, the appropriate diagnosis supported by the clinical indicators: Other (explain): KISHAN QUERY TEXT: PHYSICIAN'S DOCUMENTATION REQUEST Date of Query: 12/30/2022 12:01 PM EDT Patient Name: Scottie Encinas Admit Date: 12/30/2022 Dear Alicia Koehler, A review of the medical record indicates additional documentation may be needed. Please review below and update the documentation accordingly. Clinical Indicators: Per Hospitalist Progress Note 12/30/22: possible mild kishan on ckd On 12/30/22: BUN 72 Creatinine 1.63 Est GFR: 41 Please clarify which of the following accurately represents the patient's renal status: Chronic Kidney Disease (CKD) stage 1 CKD, stage 2 CKD, stage 3 CKD, stage 4 Other (explain)Clinically unable to determine (explain)Thank you, Nilda Valverde RN Use of terms such as suspected, likely, concern for, or probable (associated with a specific diagnosi s that is being evaluated, monitored, or treated as if it exists) are acceptable and can be coded in the inpatient se tting, when documented at the time of discharge. Please use your independent medical judgment in providing your response. THIS QUERY IS PART OF THE PERMANENT MEDICAL RECORD
[2023-01-08] MEDS: Albuterol/Iprat 2.5/0.5MG 3 ML AMPUL.NEB INHALE ×3 (08:03→19:42)
[2023-01-08] MEDS: guaiFENesin LA 600 MG TAB.ER.12H PO ×2 (09:38→20:15)
[2023-01-08] MEDS: Digoxin 0.125 MG TABLET PO (09:38)
[2023-01-08] MEDS: Nicotine 14 MG PATCH.TD24 TRANSDERMA (09:38)
[2023-01-08] MEDS: Calcium + Vitamin D 250 MG TABLET PO (09:38)
[2023-01-08] MEDS: Metoprolol Succinate ER 50 MG TAB.ER.24H PO ×3 (09:38→20:14)
[2023-01-08] MEDS: 0.9 % Sodium Chloride Flush 3 ML SYRINGE IVFLUSH ×3 (09:38→20:15)
[2023-01-08] MEDS: Folic Acid 1 MG TABLET PO (09:38)
--- NOTE | 2023-01-08 14:18 | MHC.CM.PN ---
Per MD rounds no dc today. Patient received a blood transfusion yesterday. h/h has increased since transfusion. A Cardiology consult has been ordered. MARIAH RAND @ [facility]. They have accepted the patient clinically. They will accept at discharge pending bed availability. MARIAH RAND via S.
--- NOTE | 2023-01-08 15:18 | HO.PM.IMPN ---
Subjective Subjective Date of Service: 01/08/23 Interval History: Offers no acute complaints tolerating diet, noted to have dark brown-colored stool this morning, stool guaiac positive, hematocrit improved to 24.7 hemoglobin 7.7, has normal B12 folate TSH in the past, on iron supplement, patient denies nausea vomiting, no chest pain, no palpitations, no shortness of breath, no fevers no chills no worsening cough or shortness of breath. Review of Systems All other system reviewed and negative Physical Exam Vital Signs: Vital Signs: Last Vital Signs Temp 97.5 F 01/08/23 07:27 Pulse 81 01/08/23 13:26 Resp 18 01/08/23 13:26 BP 117/57 L 01/08/23 07:27 Pulse Ox 96 01/08/23 07:27 O2 Del Method Nasal Cannula 01/08/23 07:27 O2 Flow Rate 2.0 01/08/23 07:27 Oxygen Flow Rate 4 12/30/22 05:19 BMI result Body Mass Index 21.2 Const: Other: General:? Sitting comfortably, awake alert in no acute distress Neck no JVD Resp:? CTA bilateral CVS: S1,S2, irregular , no leg edema GI: +BS, NT, no distention Skin: No rash Neuro:? motor grossly intact Psych: appropriate affect Objective Data Active Medications Acetaminophen (Acetaminophen 325 Mg Tablet) 650 mg PO Q6H PRN PRN Reason: Pain, Mild (Pain Scale 1-3) Last Admin: 01/06/23 17:04 Dose: 650 mg Documented By: MALIA Albuterol/Ipratropium (Albuterol/Iprat 2.5/0.5mg 3 Ml Ampul.Neb) 3 ml INHALE RQ6H WHILE AWAKE [facility] Last Admin: 01/08/23 13:25 Dose: 3 ml Documented By: ADAN Atorvastatin Calcium (Atorvastatin Calcium 40 Mg Tablet) 40 mg PO BEDTIME [facility] [place] Last Admin: 01/07/23 20:37 Dose: 40 mg Documented By: SONIA Calcium Carbonate/Cholecalciferol (Calcium + Vitamin D 250 Mg Tablet) 250 mg PO DAILY [facility] [place] Last Admin: 01/08/23 09:38 Dose: 250 mg Documented By: SHYAM Digoxin (Digoxin 0.125 Mg Tablet) 0.125 mg PO SUMOWEFRSA@0900 [facility] [place] Last Admin: 01/08/23 09:38 Dose: 0.125 mg Documented By: SHYAM Docusate Sodium (Docusate Sodium 100 Mg Capsule) 100 mg PO DAILY PRN PRN Reason: Constipation Last Admin: 01/06/23 09:18 Dose: 100 mg Documented By: DURGA Ferrous Sulfate (Ferrous Sulfate 324 Mg Tablet.Dr) 324 mg PO DAILY@1500 [facility] [place] Last Admin: 01/07/23 15:15 Dose: 324 mg Documented By: SHYAM Folic Acid (Folic Acid 1 Mg Tablet) 1 mg PO DAILY [facility] [place] Last Admin: 01/08/23 09:38 Dose: 1 mg Documented By: SHYAM Guaifenesin (Guaifenesin La 600 Mg Tab.Er.12h) 600 mg PO BID [facility] [place] Last Admin: 01/08/23 09:38 Dose: 600 mg Documented By: SHYAM Metoprolol Succinate (Metoprolol Succinate Er 50 Mg Tab.Er.24h) 50 mg PO TID [facility] [place]; Protocol Last Admin: 01/08/23 09:38 Dose: 50 mg Documented By: SHYAM Nicotine (Nicotine 14 Mg Patch.Td24) 14 mg TRANSDERMA DAILY [facility] [place] Last Admin: 01/08/23 09:38 Dose: 14 mg Documented By: SHYAM Ondansetron HCl (Ondansetron Hcl 4 Mg/2 Ml Vial) 4 mg IVPUSH Q8H PRN PRN Reason: Nausea and Vomiting Pantoprazole Sodium (Pantoprazole Sodium 40 Mg/10 Ml Vial) 40 mg IVPUSH BID@0630,1630 [facility] [place] Last Admin: 01/08/23 05:45 Dose: 40 mg Documented By: SONIA Polyethylene Glycol (Polyethylene Glycol 3350 17 Gm Powd.Pack) 17 gm PO DAILY PRN PRN Reason: Constipation Sodium Chloride (0.9 % Sodium Chloride Flush 3 Ml Syringe) 3 ml IVFLUSH QSHIFT [facility] [place] Last Admin: 01/08/23 09:38 Dose: 3 ml Documented By: SHYAM Labs 01/08/23 05:20 01/08/23 05:20 Labs: Laboratory Results - last 24 hr 01/07/23 01/08/23 01/08/23 18:27 05:20 05:20 MCV 99.2 H MCH 31.0 MCHC 31.3 RDW 18.4 H Plt Count 195 MPV 11.4 Absolute Nucleated RBC 0.030 H Nucleated RBC % (auto) 0.4 H PT INR Anion Gap 10 L Estim Creat Clear Calc 62.5 Estimated GFR > 60 Random Glucose 100 Calcium 8.1 L Stool Occult Blood POSITIVE 01/08/23 05:20 MCV MCH MCHC RDW Plt Count MPV Absolute Nucleated RBC Nucleated RBC % (auto) PT 24.0 H D INR 2.0 H Anion Gap Estim Creat Clear Calc Estimated GFR Random Glucose Calcium Stool Occult Blood Assessment and Plan (1) Acute kidney injury: Status: Acute (2) Community acquired pneumonia: Status: Acute (3) Acute respiratory failure with hypoxia: Status: Acute Plan 82-year-old male past medical history of COPD, CHF with reduced ejection fraction, lung cancer comes into the hospital with complaints of shortness of breath, cough, sputum production as well as increased weakness Patient presented with acute hypoxic respiratory failure and work up revealed pneumonia, copd exacerbation, decompensated heart failure and KISHAN. #Acute on chronic anemia- noted to have significant drop in hematocrit 20.3,on 01/07 from admission hematocrit of 35.5, no active bleeding noted, patient with history of chronic anemia status post upper endoscopy and video capsule study that showed gastritis, esophagitis and small bowel bleeding, normal colonoscopy July 2021 , 2 units of packed RBC given hematocrit improved to 24.6, stool guaiac positive Likely related to gastritis/esophagitis due to recent use of prednisone aspirin and elevated INR Continue IV Protonix for 1 more day and DC aspirin, hold Coumadin, monitor CBC Seen by GI , since no active bleeding noted no further intervention planned Will discuss with Cardiology regarding transition to low-dose Eliquis versus continue Coumadin with INR goal between 2-2.5 # acute hypoxic respiratory failure d/t copd, heart failure and penumonia..Acute hypoxic respiratory failure has resolved with treatement of underlying issues. Continue to wean off O2 # acute COPD exacerbation- treated with bronchodilators and intravenous steroid, COPD exacerbation resolved #KISHAN on CKD, likely d/t cardiorenal syndrome. He presented with Creatinine of 1.63 and peaked at 1.7 and now creatinine normalize valsartan discontinued BP stable. # Community-acquired pneumonia--finish 7 day course of ceftriaxone and azithromycin # acute systolic CHF exacerbation, Treated with IV Lasix with good effect. Lasix stopped d/t Hypernatremia, appears euvolemic. #Hypernatremia--d/t free water deficit, corrected with D5, sodium is now 143 #Hyperkalemia-s/p Lokelma and K supplement stopped, potassium normalized 4.9 today valsartan discontinued. # persistent AFib, rate controled on metoprolol and digoxin. INR was 3 when he presented and went up to 6 due to antibiotics, coumadin was on hold, until INR came back down to 3 and coumadin was restarted on 01/03 at 0.5 mg , INR 2 today will hold Coumadin due to anemia follow PT INR. #Tobacco dependence--continue nicotine replacement therapy. DVT prophylaxis: Hold Warfarin due to anemia , on compression boots need for inpt: ongoing management for acute anemia PT is recommending STR when medically stable. Time Spent With Patient Time: Total time managing care of this patient today ____ minutes. Quality Stroke Does the patient have a stroke diagnosis?: No VTE Prior VTE?: No VTE Risk Level:: Medical - moderate - high VTE Device Contraindication: Treatment Not Indicated VTE Drug Contraindication: N/A - Med Ordered
[2023-01-08] MEDS: Ferrous Sulfate 324 MG TABLET.DR PO (15:56)
[2023-01-08] MEDS: Acetaminophen 325 MG TABLET 650 MG PO (20:14)
[2023-01-08] MEDS: Atorvastatin Calcium 40 MG TABLET PO (20:14)
[2023-01-09] VITALS (8 sets, daily range): BP systolic 106–130; BP diastolic 55–70; PULSE 80–106; RESP 15–22; TEMP 36.3–36.8; O2SAT 92–98
[2023-01-09] MEDS: Pantoprazole Sodium 40 MG/10 ML VIAL IVPUSH (05:25)
[2023-01-09 06:53] LABS: Hematocrit 24.1 % (42.0-52.0); Hemoglobin 7.6 g/dl (14.0-18.0); Mean Corpuscular HGB Conc 31.5 g/dl (31.0-36.0); Mean Corpuscular Hemoglobin 31.4 pg (27.0-33.0); Mean Corpuscular Volume 99.6 fL (80.0-98.0); Mean Platelet Volume 11.3 fL (9.4-12.4); NRBC Pct Auto 0.3 /100WBC (0.0-0.2); Platelet Count 215 X10*3/uL (160-400); Red Blood Count 2.42 X10*6/uL (4.60-5.80); Red Cell Distribution Width 18.1 % (11.0-16.0); White Blood Count 6.7 X10*3/uL (4.8-10.8)
[2023-01-09 07:11] LABS: INTERNATIONAL NORM RATIO 1.5 (0.9-1.1); Prothrombin Time 18.2 SEC (11.1-13.3)
[2023-01-09] MEDS: Albuterol/Iprat 2.5/0.5MG 3 ML AMPUL.NEB INHALE ×2 (07:38→13:31)
[2023-01-09] MEDS: Nicotine 14 MG PATCH.TD24 TRANSDERMA (10:50)
[2023-01-09] MEDS: Calcium + Vitamin D 250 MG TABLET PO (10:51)
[2023-01-09] MEDS: Metoprolol Succinate ER 50 MG TAB.ER.24H PO ×3 (10:51→20:17)
[2023-01-09] MEDS: Folic Acid 1 MG TABLET PO (10:51)
[2023-01-09] MEDS: guaiFENesin LA 600 MG TAB.ER.12H PO ×2 (10:51→20:17)
[2023-01-09] MEDS: 0.9 % Sodium Chloride Flush 3 ML SYRINGE IVFLUSH ×3 (10:52→20:17)
--- NOTE | 2023-01-09 14:27 | P.PNIM_ITS ---
Subjective Subjective Date of Service: 01/09/23 Interval History: Sitting comfortably offers no acute complaints of lightheadedness, dizziness noted to have intermittent dry cough, concern about not able to ambulate, no hematemesis or melena noted, denies abdominal pain, no nausea, no vomiting ,tolerating diet ,no acute issues overnight. Review of Systems All other system reviewed and negative Physical Exam 2 Vital Signs: Vital Signs: Last Vital Signs Temp 98.2 F 01/09/23 13:16 Pulse 80 01/09/23 13:31 Resp 16 01/09/23 13:31 BP 106/55 L 01/09/23 13:16 Pulse Ox 93 01/09/23 07:44 O2 Del Method Nasal Cannula 01/09/23 07:44 O2 Flow Rate 3.0 01/09/23 07:44 Oxygen Flow Rate 4 12/30/22 05:19 BMI result Body Mass Index 21.2 Const: Other: General:? Sitting comfortably, awake alert in no acute distress Neck no JVD Resp:? coarse breath sounds with few rhonchi, no crackles, good air movement CVS: S1,S2, irregular , no leg edema GI: +BS, NT, no distention Skin: No rash Neuro:? motor grossly intact Psych: appropriate affect Objective Data Active Medications Acetaminophen (Acetaminophen 325 Mg Tablet) 650 mg PO Q6H PRN PRN Reason: Pain, Mild (Pain Scale 1-3) Last Admin: 01/08/23 20:14 Dose: 650 mg Documented By: CARLEY Albuterol/Ipratropium (Albuterol/Iprat 2.5/0.5mg 3 Ml Ampul.Neb) 3 ml INHALE RQ6H WHILE AWAKE [facility] Last Admin: 01/09/23 13:31 Dose: 3 ml Documented By: LUZ MARIA Atorvastatin Calcium (Atorvastatin Calcium 40 Mg Tablet) 40 mg PO BEDTIME [facility] Last Admin: 01/08/23 20:14 Dose: 40 mg Documented By: CARLEY Calcium Carbonate/Cholecalciferol (Calcium + Vitamin D 250 Mg Tablet) 250 mg PO DAILY [facility] Last Admin: 01/09/23 10:51 Dose: 250 mg Documented By: MICHAEL Digoxin (Digoxin 0.125 Mg Tablet) 0.125 mg PO SUMOWEFRSA@0900 [facility] Last Admin: 01/08/23 09:38 Dose: 0.125 mg Documented By: SHYAM Docusate Sodium (Docusate Sodium 100 Mg Capsule) 100 mg PO DAILY PRN PRN Reason: Constipation Last Admin: 01/06/23 09:18 Dose: 100 mg Documented By: DURGA Ferrous Sulfate (Ferrous Sulfate 324 Mg Tablet.) 324 mg PO DAILY@1500 [facility] Last Admin: 01/08/23 15:56 Dose: 324 mg Documented By: SHYAM Folic Acid (Folic Acid 1 Mg Tablet) 1 mg PO DAILY [facility] Last Admin: 01/09/23 10:51 Dose: 1 mg Documented By: MICHAEL Guaifenesin (Guaifenesin La 600 Mg Tab.Er.12h) 600 mg PO BID [facility] Last Admin: 01/09/23 10:51 Dose: 600 mg Documented By: MICHAEL Metoprolol Succinate (Metoprolol Succinate Er 50 Mg Tab.Er.24h) 50 mg PO TID [facility]; Protocol Last Admin: 01/09/23 10:51 Dose: 50 mg Documented By: MICHAEL Nicotine (Nicotine 14 Mg Patch.Td24) 14 mg TRANSDERMA DAILY [facility] Last Admin: 01/09/23 10:50 Dose: 14 mg Documented By: MICHAEL Omeprazole (Omeprazole 20 Mg Capsule.) 20 mg PO BID@0630,1630 [facility] Ondansetron HCl (Ondansetron Hcl 4 Mg/2 Ml Vial) 4 mg IVPUSH Q8H PRN PRN Reason: Nausea and Vomiting Polyethylene Glycol (Polyethylene Glycol 3350 17 Gm Powd.Pack) 17 gm PO DAILY PRN PRN Reason: Constipation Sodium Chloride (0.9 % Sodium Chloride Flush 3 Ml Syringe) 3 ml IVFLUSH QSHIFT [facility] Last Admin: 01/09/23 10:52 Dose: 3 ml Documented By: MICHAEL Labs 01/09/23 05:45 01/08/23 05:20 Labs: Laboratory Results - last 24 hr 01/09/23 01/09/23 05:45 11:24 MCV 99.6 H MCH 31.4 MCHC 31.5 RDW 18.1 H Plt Count 215 MPV 11.3 Absolute Nucleated RBC 0.020 H Nucleated RBC % (auto) 0.3 H PT 18.2 H D INR 1.5 H Blood Type A Positive Antibody Screen NEGATIVE Crossmatch See Detail Assessment and Plan (1) Acute kidney injury: Status: Acute (2) Community acquired pneumonia: Status: Acute (3) Acute respiratory failure with hypoxia: Status: Acute Plan 82-year-old male past medical history of COPD, CHF with reduced ejection fraction, lung cancer comes into the hospital with complaints of shortness of breath, cough, sputum production as well as increased weakness Patient presented with acute hypoxic respiratory failure and work up revealed pneumonia, copd exacerbation, decompensated heart failure and KISHAN. #Acute on chronic anemia- noted to have significant drop in hematocrit 20.3,on 01/07 from admission hematocrit of 35.5, no active bleeding noted, patient with history of chronic anemia status post upper endoscopy and video capsule study that showed gastritis, esophagitis and small bowel bleeding, normal colonoscopy July 2021 , 2 units of packed RBC given hematocrit improved to 24.6, and today dropped to 24.1 will give additional 1 unit of packed RBC stool guaiac positive Likely related to gastritis/esophagitis due to recent use of prednisone aspirin and elevated INR on IV Protonix x 48 hr, will transition to by mouth PPI, continue to hold Coumadin, aspirin discontinued Seen by GI , since no active bleeding noted no further intervention planned. Follow CBC and INR # acute hypoxic respiratory failure d/t copd, heart failure and penumonia..Acute hypoxic respiratory failure has resolved with treatement of underlying issues, wean O2, finished course of antibiotics continue cough medication as needed. # acute COPD exacerbation- treated with bronchodilators and intravenous steroid, COPD exacerbation resolved. #KISHAN on CKD, likely d/t cardiorenal syndrome. He presented with Creatinine of 1.63 and peaked at 1.7 and now creatinine normalize valsartan discontinued BP stable. # Community-acquired pneumonia--finish 7 day course of ceftriaxone and azithromycin # acute systolic CHF exacerbation, Treated with IV Lasix with good effect. Lasix stopped d/t Hypernatremia, appears euvolemic. #Hypernatremia--d/t free water deficit, corrected with D5, sodium is now 143 #Hyperkalemia-s/p Lokelma and K supplement stopped, potassium normalized 4.9 today valsartan discontinued. # persistent AFib, rate controled on metoprolol and digoxin. INR was 3 when he presented and went up to 6 due to antibiotics, coumadin was on hold, until INR came back down to 3 and coumadin was restarted on 01/03 at 0.5 mg , INR 1.5 today will hold Coumadin due to anemia follow PT INR. #Tobacco dependence--continue nicotine replacement therapy. DVT prophylaxis: Hold Warfarin due to anemia , on compression boots need for inpt: ongoing management for acute anemia PT is recommending STR when medically stable. Time Spent With Patient Time: Total time managing care of this patient today ____ minutes. Quality Stroke Does the patient have a stroke diagnosis?: No VTE Prior VTE?: No VTE Risk Level:: Medical - moderate - high VTE Device Contraindication: Treatment Not Indicated VTE Drug Contraindication: N/A - Med Ordered
[2023-01-09] MEDS: Ferrous Sulfate 324 MG TABLET.DR PO (16:44)
[2023-01-09] MEDS: Omeprazole 20 MG CAPSULE.DR PO (16:44)
[2023-01-09] MEDS: Atorvastatin Calcium 40 MG TABLET PO (20:17)
[2023-01-10 04:00] VITALS: BP 131/62; PULSE 70; RESP 20; TEMP 36.6; O2SAT 98
[2023-01-10 05:47] LABS: Hematocrit 26.6 % (42.0-52.0); Hemoglobin 8.4 g/dl (14.0-18.0); Mean Corpuscular HGB Conc 31.6 g/dl (31.0-36.0); Mean Corpuscular Hemoglobin 31.2 pg (27.0-33.0); Mean Corpuscular Volume 98.9 fL (80.0-98.0); Mean Platelet Volume 10.9 fL (9.4-12.4); NRBC Pct Auto 0.3 /100WBC (0.0-0.2); Platelet Count 208 X10*3/uL (160-400); Red Blood Count 2.69 X10*6/uL (4.60-5.80); Red Cell Distribution Width 18.2 % (11.0-16.0); White Blood Count 6.9 X10*3/uL (4.8-10.8)
[2023-01-10 05:52] LABS: INTERNATIONAL NORM RATIO 1.4 (0.9-1.1); Prothrombin Time 16.8 SEC (11.1-13.3)
[2023-01-10] MEDS: Omeprazole 20 MG CAPSULE.DR PO (06:08)
[2023-01-10 07:24] VITALS: BP 131/69; PULSE 79; RESP 18; TEMP 36.2; O2SAT 95
[2023-01-10] MEDS: Metoprolol Succinate ER 50 MG TAB.ER.24H PO (09:30)
[2023-01-10] MEDS: guaiFENesin LA 600 MG TAB.ER.12H PO (09:30)
[2023-01-10] MEDS: Folic Acid 1 MG TABLET PO (09:30)
[2023-01-10] MEDS: Nicotine 14 MG PATCH.TD24 TRANSDERMA (09:30)
[2023-01-10] MEDS: Calcium + Vitamin D 250 MG TABLET PO (09:30)
[2023-01-10] MEDS: Digoxin 0.125 MG TABLET PO (09:30)
[2023-01-10] MEDS: 0.9 % Sodium Chloride Flush 3 ML SYRINGE IVFLUSH (09:31)
--- NOTE | 2023-01-10 11:19 | MHC.CM.PN ---
IMM 01/10/23 Patient discharged to [facility] for STR. 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
--- NOTE | 2023-01-10 11:23 | P.DS_ITS ---
DS: Providers Provider Date of Service: 01/10/23 Date of admission: 12/30/22 04:30 Primary care physician: Ben Durham MD Consults: 12/30/22 07:30 Consult to Nephrology Routine Consulting Provider: Aj Huff Reason for consultation: kishan on ckd,in chf setting/hypernatremia Has provider been notified: No 01/06/23 09:02 Consult to Gastroenterology Routine Consulting Provider: Jared Gr Reason for consultation: gi bleed, anemia Has provider been notified: No DS: Diagnosis Discharge Diagnosis (1) Acute kidney injury: Status: Acute (2) Community acquired pneumonia: Status: Acute (3) Acute respiratory failure with hypoxia: Status: Acute DS: Summary Hospital Course Hospital Course: Date of Service: 12/30/22 Chief Complaint: Weakness, cough and sputum production 82-year-old male past medical history of lung cancer, COPD, CHF with reduced ejection fraction, chronic AFib, HLD, PAD, presents to the hospital with reporting increased weakness, cough, sputum production. On the ED patient was found to be hypoxic 85%. Symptoms started about 4 days ago, with increased cough and sputum production. He also states that he has been feeling very weak and having difficulty even getting out of chair to get himself to the bathroom. Patient otherwise denies any chest pain, no palpitations, no abdominal pain nausea or vomiting, no diarrhea constipation, no urinary symptoms and no lower extremity edema On arrival to the ED patient hemodynamically stable satting the 85% on room air, Labs are significant for WBC count of 7.9, hemoglobin of 11.2, hematocrit 36.7, pH of 7.33, sodium of 148, creatinine of 1.6 6 3, BNP of 686, UA negative, Chest x-ray shows mild patchy basilar opacity which may reflect developing consolidation. Redemonstrated right upper lobe mass Patient started on IV antibiotics, Lasix and will be admitted further management. Hospital course: 82-year-old male past medical history of COPD, CHF with reduced ejection fraction, lung cancer comes into the hospital with complaints of shortness of breath, cough, sputum production as well as increased weakness Patient presented with acute hypoxic respiratory failure and work up revealed pneumonia, copd exacerbation, decompensated heart failure and KISHAN. Patient admitted to medical floor with a diagnosis of acute hypoxic respiratory failure due to COPD, systolic heart failure exacerbation and pneumonia, patient treated with 7 day course of antibiotics as well as bronchodilators and steroids patient responded well to above treatment hypoxia improved patient requiring oxygen intermittently encouraged to use incentive spirometry and continue cough syrup, at present patient appears euvolemic does not require continued use of diuretics, in regard to acute on chronic kidney disease stage 3 likely due to valsartan and cardiorenal syndrome creatinine normalized with treatment of CHF and holding valsartan, patient was noted to have hyperkalemia likely due to potassium replacement and valsartan ,patient treated with Lokelma , potassium normalized, potassium supplement and valsartan have been discontinued, patient also noted to have mild hypernatremia likely due to free water deficit that was corrected with IV D5W, during the course of hospitalization patient noted to have drop in hematocrit to 20.3 from the admission hematocrit of 35.5 no active bleeding was noted patient has history of chronic anemia, with prior normal B12 folate and TSH, on iron supplements patient was treated with 2 units of packed RBC hematocrit improved to 26.6 ,patient was evaluated by Dr. Gr since is no active bleed noted no acute intervention was planned, however patient does have history of gastritis, esophagitis and small bowel bleeding and normal colonoscopy in July of 2021, will discontinue aspirin and hold Coumadin for total 2 weeks recommend to resume Coumadin low dose to keep INR between 2-2.5 patient has also been started on Prilosec 20 mg twice daily for 1 month then Prilosec 20 mg daily recommend close outpatient follow-up with Cardiology and Gastroenterology recommend to check CBC early next week. Being discharged to rehab facility. In regard to persistent AFib, rate controled on metoprolol and digoxin, Coumadin on hold as above resume Coumadin after 10 days low dose to keep INR between 2- 2.5 monitor CBC and INR closely. Tobacco dependence--continue nicotine replacement therapy. Time Spent with Patient Time attestation: Total time managing care of this patient today ____ minutes. Discharge coordination time: Greater than 30 minutes Quality: Safe Use of Opioids Does Pt have an Active Cancer Diagnosis on the Problem List?: No Quality: Stroke Does the patient have a stroke diagnosis?: No Physical Exam Vital Signs: Vital Signs: Last Vital Signs Temp 97.1 F 01/10/23 07:24 Pulse 79 01/10/23 07:24 Resp 18 01/10/23 07:24 BP 131/69 01/10/23 07:24 Pulse Ox 95 01/10/23 07:24 O2 Del Method Nasal Cannula 01/10/23 07:24 O2 Flow Rate 3.0 01/10/23 07:24 Oxygen Flow Rate 4 12/30/22 05:19 BMI result Body Mass Index 21.2 Const: Other: General:? Sitting comfortably, awake alert in no acute distress. Neck no JVD Resp:? coarse breath sounds , no crackles, good air movement CVS: S1,S2, irregular , no leg edema GI: +BS, NT, no distention Extremities no edema, knee examination no redness, nontender, no warmth Skin: No rash Neuro:? motor grossly intact Psych: appropriate affect DS: Data Data Completed and Pending Completed studies during hospitalization [Text1]: Procedures Excision of Duodenum, Via Natural or Artificial Opening Endoscopic, Diagnostic (06/20/21) Excision of Stomach, Pylorus, Via Natural or Artificial Opening Endoscopic, Diagnostic (06/20/21) Inspection of Lower Intestinal Tract, Via Natural or Artificial Opening Endoscopic (07/27/21) Inspection of Upper Intestinal Tract, Via Natural or Artificial Opening Endoscopic (07/27/21) Transfusion of Nonautologous Fresh Plasma into Peripheral Vein, Percutaneous Approach (07/27/21) Transfusion of Nonautologous Red Blood Cells into Peripheral Vein, Percutaneous Approach (07/27/21) Labs on day of discharge: Laboratory Results - last 24 hr 01/09/23 01/10/23 11:24 05:17 WBC 6.9 RBC 2.69 L Hgb 8.4 L Hct 26.6 L MCV 98.9 H MCH 31.2 MCHC 31.6 RDW 18.2 H Plt Count 208 MPV 10.9 Absolute Nucleated RBC 0.020 H Nucleated RBC % (auto) 0.3 H PT 16.8 H INR 1.4 H Blood Type A Positive Antibody Screen NEGATIVE Crossmatch See Detail Discharge Plan Discharge Anticipated Discharge Date/Time: 01/04/23 08:17 Patient Disposition: Xfer SNF Discharge Diagnosis: Acute hypoxic respiratory failure Pneumonia Acute on chronic anemia Acute on chronic kidney disease stage 3 Referrals: [facility] [Outside] - 1 Week Ben Durham MD [Primary Care Provider] - 1 Week Discharge Medications: New nicotine 14 mg/24 hr Patch 24 Hour 14 mg transdermal DAILY Qty: 30 0RF polyethylene glycol 3350 17 gram Powder In Packet 17 g PO DAILY PRN (Reason: Constipation) Qty: 30 0RF omeprazole 20 mg Capsule,Delayed Release(Dr/Ec) 20 mg PO BID@0630,1630 Qty: 60 0RF dextromethorphan-guaifenesin 10-100 mg/5 mL Syrup 10 ml PO TID Qty: 237 0RF Rx Instructions: stop after 1 week Continued metoprolol succinate 50 mg tablet extended release 24 hr 50 mg PO TID 90 Days Qty: 270 3RF Protocol: Hold for SBP/HR < HOLD for SBP < : 90 HOLD for HR < : 60 digoxin 125 mcg (0.125 mg) tablet 125 mcg PO SUMOWEFRSA@0900 90 Days Qty: 65 3RF (DME) ADULT WIPES See Rx Instructions .Route .MEDSUPPLY Qty: 100 12RF Rx Instructions: As directed (DME) ADULT BRIEFS See Rx Instructions .Route .MEDSUPPLY Qty: 100 12RF Rx Instructions: As directed atorvastatin 40 mg tablet 40 mg PO BEDTIME Qty: 90 0RF febuxostat 40 mg tablet 40 mg PO DAILY PRN (Reason: for gout pain) 30 Days Qty: 30 5RF folic acid 1 mg tablet 1 mg PO DAILY Qty: 90 0RF calcium carbonate-vitamin D3 600 mg(1,500mg) -200 unit Tablet 1 tab PO DAILY ferrous sulfate 325 mg (65 mg iron) Tablet 325 mg PO DAILY@1500 PreserVision AREDS-2 250-90-40-1 mg capsule 1 tab PO DAILY (DME) HINGED KNEE BRACE (left) See Rx Instructions .Route .MEDSUPPLY Qty: 1 0RF Rx Instructions: As directed Discontinued warfarin 1 mg tablet 2 mg PO .COMPLEX Qty: 90 3RF Protocol: Dose Management Condition: Friday (Week One) Dose/Route: 1 mg Instruction: 1 x 1 mg tablet Condition: Friday Dose/Route: 1 mg Instruction: 1 x 1 mg tablet Condition: Friday Dose/Route: 2 mg Instruction: 2 x 1 mg tablets Condition: Friday Dose/Route: 1 mg Instruction: 1 x 1 mg tablet Condition: Dose/Route: 1 mg Instruction: 1 x 1 mg tablet Condition: Friday Dose/Route: 1 mg Instruction: 1 x 1 mg tablet Condition: Friday Dose/Route: 1 mg Instruction: 1 x 1 mg tablet Condition: Friday (Week Two) Dose/Route: 1 mg Instruction: 1 x 1 mg tablet Condition: Friday Dose/Route: 1 mg Instruction: 1 x 1 mg tablet Condition: Friday Dose/Route: 2 mg Instruction: 2 x 1 mg tablets Condition: Friday Dose/Route: 1 mg Instruction: 1 x 1 mg tablet Condition: Dose/Route: 1 mg Instruction: 1 x 1 mg tablet Condition: Friday Dose/Route: 1 mg Instruction: 1 x 1 mg tablet Condition: Friday Dose/Route: 1 mg Instruction: 1 x 1 mg tablet Protocol Text: Adjustment Start Date: Friday12/23/22 INR Value: 3.1 INR Date: 12/23/22 Recheck Date: 12/30/22 Additional Instructions: REVIEW FOOD LIST - [place] TODAY CHK INR 1 WEEK Rx Instructions: 2 mg orally WED SAT/ 1MG X 5 DAYS; warfarin 1 mg Tablet 1 mg PO SUMOTUWEFRSA warfarin 1 mg Tablet 2 mg PO TH valsartan 40 mg tablet 40 mg PO DAILY Hold Instructions: Resume on 03/25/22. aspirin [Adult Low Dose Aspirin] 81 mg tablet,delayed release (DR/EC) 81 mg PO DAILY@1500 potassium chloride 20 mEq tablet,ER particles/crystals 20 meq PO DAILY 60 Days Qty: 60 3RF Discharge Orders: Discharge Order (Routine); Ordered 01/10/23 Ordered By: Sundeep Chapin Diet: Low fat, low cholesterol Activity on Discharge: As tolerated Stand Alone Forms: Patient Portal Discharge page Care Plan Goals: Take all medications as prescribed Stop aspirin Follow CBC early next week Follow closely for GI bleed Encourage ambulation Resume Coumadin on 01/20, low-dose, keep INR between 2-2.5 resume VNA services at home Health Concerns: Osteoarthritis knee/chronic persistent atrial fibrillation Plan of Treatment: Outpatient follow-up with primary care physician, Cardiology Dr. Huff and Gastroenterology Dr. Whitehead/Simón call to make an appointment 2-4 weeks Assessment: as above
[2023-01-10] MEDS: Albuterol/Iprat 2.5/0.5MG 3 ML AMPUL.NEB INHALE (13:10)
[2023-01-10 13:11] VITALS: PULSE 79; RESP 18; O2SAT 97
--- NOTE | 2023-01-15 10:19 | P.CDIM_ITS ---
PROVIDER RESPONSE TEXT: To clarify, the appropriate diagnosis supported by the clinical indicators: Moderate protein calorie Malnutrition QUERY TEXT: PHYSICIAN'S DOCUMENTATION REQUEST Date of Query: 01/02/2023 09:26 AM EDT Patient Name: Scottie Encinas Admit Date: 12/30/2022 Dear Nile Castaneda, A review of the medical record indicates additional documentation may be needed. Please review below and update the documentation accordingly. Clinical Indicators: Height: ( ) 6'2 Weight: ( ) 75 kg BMI: ( ) 21.2 Other Clinical Notes Supporting Significance of the BMI: documentation states patient is Cachectic has stage 4 lung CA No Nutrition Assessment noted in EMR If possible, please provide an associated diagnosis related to the abnormal BMI, such as: Mild protein calorie Malnutrition Moderate protein calorie Malnutrition Severe protein calorie Malnutrition Not malnourished BMI is not significant Other (explain)Clinically unable to determine (explain)Thank you, Nilda Valverde RN Use of terms such as suspected, likely, concern for, or probable (associated with a specific diagnosi s that is being evaluated, monitored, or treated as if it exists) are acceptable and can be coded in the inpatient se tting, when documented at the time of discharge. Please use your independent medical judgment in providing your response. THIS QUERY IS PART OF THE PERMANENT MEDICAL RECORD
== END 2023-01-10 13:41 | disposition skilled nursing facility (03) | DRG 291 ==
LOC: HO.ED 03:15 → HO.EDOVER 04:44 → HO.S3 05:19
PROVIDERS: Emergency Medicine; Internal Medicine; Student in an Organized Health Care Education/Training Program; Admitting Provider Internal Medicine; Emergency Provider Emergency Medicine; PCP Internal Medicine; Visit Provider Hospitalist
DX: I13.0 Hypertensive heart and chronic kidney disease with heart failure and stage 1 through stage 4 chronic kidney disease, or unspecified chronic kidney disease (principal); I50.23 Acute on chronic systolic (congestive) heart failure; J18.9 Pneumonia, unspecified organism; J44.0 Chronic obstructive pulmonary disease with (acute) lower respiratory infection; J44.1 Chronic obstructive pulmonary disease with (acute) exacerbation; C34.11 Malignant neoplasm of upper lobe, right bronchus or lung; N17.9 Acute kidney failure, unspecified; I48.19 Other persistent atrial fibrillation; E87.0 Hyperosmolality and hypernatremia; R64 Cachexia; E44.0 Moderate protein-calorie malnutrition; N18.30 Chronic kidney disease, stage 3 unspecified; D63.1 Anemia in chronic kidney disease; F17.210 Nicotine dependence, cigarettes, uncomplicated; E78.5 Hyperlipidemia, unspecified; D63.0 Anemia in neoplastic disease; I25.10 Atherosclerotic heart disease of native coronary artery without angina pectoris; T50.1X5A Adverse effect of loop [high-ceiling] diuretics, initial encounter; R79.1 Abnormal coagulation profile; Z20.822 Contact with and (suspected) exposure to COVID-19; Z71.6 Tobacco abuse counseling; Z90.2 Acquired absence of lung [part of]; Z68.21 Body mass index [BMI] 21.0-21.9, adult; Z79.01 Long term (current) use of anticoagulants; Z79.899 Other long term (current) drug therapy
CPT/HCPCS: 0241U; 36415; 70450; 71045; 73590; 80048; 80076; 81001; 82272; 82803; 83605; 83690; 83880; 84484; 85025; 85027; 85610; 86850; 86900; 86901; 86923; 87040; 93005; 93306; 93970; 94640; 97116; 97162; 99285; J0456; J0696; J1940; J2920; J2930; P9016

== ENCOUNTER 2022-12-30 04:30 | Outpatient (BNV) | payer MEDICARE, SELFPAY | END 2022-12-30 07:00 | PROVIDERS: Admitting Provider Internal Medicine; Emergency Provider Emergency Medicine; Visit Provider Internal Medicine Cardiovascular Disease | DX: I36.1 Nonrheumatic tricuspid (valve) insufficiency (principal); I35.8 Other nonrheumatic aortic valve disorders | CPT/HCPCS: 93306 ==

== ENCOUNTER → 2022-12-30 04:30 | Outpatient (BNV) | payer MEDICARE, SELFPAY | PROVIDERS: Admitting Provider Internal Medicine; Emergency Provider Emergency Medicine; Visit Provider Internal Medicine | DX: N17.9 Acute kidney failure, unspecified (principal); J96.01 Acute respiratory failure with hypoxia; J18.9 Pneumonia, unspecified organism | CPT/HCPCS: 99223; 99232; 99233; 99239; 99499 ==

== ENCOUNTER 2023-01-22 05:08 | Inpatient (IN) | payer MEDICARE, SELFPAY ==
[2023-01-22] VITALS (11 sets, daily range): BP systolic 107–130; BP diastolic 63–90; PULSE 95–122; RESP 16–33; TEMP 36.2; O2SAT 95–99; BMI 23.7
--- NOTE | ~2023-01-22 | XR_ITS ---
EXAMINATION: XR CHEST CLINICAL INFORMATION: Shortness of breath, cough COMPARISON: Chest radiograph from 01/22/2023 and 03/18/2022 TECHNIQUE: Frontal view of the chest was obtained. FINDINGS: Stable appearance of right upper lobe radiodensity/mass with overlying surgical material measuring up to 7.9 cm. Stable nodular focus in the lateral mid lung field measuring 3.6 cm. Slightly increased right basilar opacity. Trace bilateral pleural effusions with subjacent atelectasis. No pneumothorax. Trachea is midline. Cardiac mediastinal silhouette is enlarged. Aorta demonstrates atherosclerotic calcifications. Degenerative arthropathy of the thoracolumbar spine. Partially visualized sclerotic focus in the left proximal humerus possibly representing a bone infarct or enchondroma XR/XR chest 1V IMPRESSION: 1. Stable appearance of right upper lobe radiodensity/mass with overlying surgical material measuring up to 7.9 cm. 2. Stable nodular focus in the lateral mid lung field measuring 3.6 cm. 3. Slightly increased right basilar opacity. 4. Trace bilateral pleural effusions with subjacent atelectasis. 5. Cardiac mediastinal silhouette is enlarged. 6. Partially visualized sclerotic focus in the left proximal humerus possibly representing a bone infarct or enchondroma.
--- NOTE | ~2023-01-22 | XR_ITS ---
EXAMINATION: XR CHEST CLINICAL INFORMATION: Shortness of breath COMPARISON: 12/30/2022 TECHNIQUE: Frontal view of the chest was obtained. FINDINGS: Lung volumes are symmetric. Redemonstrated right upper lobe mass measuring approximately 8 cm in diameter, similar to prior. New nodular density in the lateral mid to upper right lung may reflect fissural fluid versus a new 3.6 cm mass. There is suspected worsening airspace opacity at the right lung base Small bilateral pleural effusions are present. No pneumothorax is seen. Cardiac silhouette is enlarged. Calcification is present at the aortic arch. No acute osseous findings are seen. XR/XR chest 1V IMPRESSION: 1. New nodular density in the lateral mid to upper right lung may reflect fissural fluid versus a new 3.6 cm mass. 2. Redemonstrated right upper lobe mass, similar to 12/30/2022. 3. Small pleural effusions. 4. Suspect worsening right basilar airspace opacity. 5. Enlarged cardiac silhouette.
--- NOTE | ~2023-01-22 | XR_ITS ---
EXAMINATION: XR CHEST CLINICAL INFORMATION: Dyspnea. COMPARISON: Multiple priors, most recent chest radiograph dated 01/25/2023. TECHNIQUE: Frontal view of the chest was obtained. FINDINGS: Redemonstration of a lobulated mass within the right lung apex with adjacent surgical clips and surgical sutures. Ovoid density within the lateral aspect of the right midlung, unchanged. Additional chronic interstitial prominence with patchy bilateral airspace opacities as seen on the prior examination. These have slight decrease in the right lower quadrant. Small left-sided pleural effusion, unchanged. No pneumothorax. Stable cardiomediastinal silhouette. XR/XR chest 1V IMPRESSION: 1. Redemonstration of a lobulated mass within the right lung apex with adjacent surgical clips and surgical sutures. Ovoid density within the lateral aspect of the right midlung, unchanged. 2. Patchy bilateral airspace opacities, slightly decreased in the right lower lobe when compared to the prior examination. Small left-sided pleural effusion, unchanged.
--- NOTE | 2023-01-22 05:13 | ECG_ITS ---
Test Reason : SOB Blood Pressure : / mmHG Vent. Rate : 103 BPM Atrial Rate : 103 BPM P-R Int : 208 ms QRS Dur : 122 ms QT Int : 352 ms P-R-T Axes : 000 252 -13 degrees QTc Int : 461 ms Poor data quality, interpretation may be adversely affected Atrial fibrillation with rapid ventricular response Right bundle branch block Anteroseptal infarct , age undetermined Abnormal ECG When compared with ECG of 30-DEC-2022 00:34, Vent. rate has increased Referred By: Bren Walden Electronically Signed By:JOSE MIGUEL PARSONS
--- NOTE | 2023-01-22 05:25 | ED.SOB ---
HPI - SOB/Dyspnea General Chief Complaint: Dyspnea Stated Complaint: sob Time Seen by Provider: 01/22/23 05:13 Source: patient and EMS Mode of arrival: EMS History of Present Illness HPI Narrative: 82-year-old male who is brought in from [facility] for acute respiratory failure with hypoxia and noted to be at 77%, patient was placed on CPAP and is improved to 97%, he denies any fevers or chills and denies any chest pain or abdominal pain but states that his legs have become more edematous. Related Data Home Medications Medication Instructions Recorded Confirmed calcium carbonate 600 mg-vitamin 1 tab PO DAILY 07/10/20 12/30/22 D3 5 mcg (200 unit) tablet ferrous sulfate 325 mg (65 mg 325 mg PO DAILY@1500 03/17/22 12/30/22 iron) tablet vit C 250 mg-vit E 90 mg-zinc 40 1 tab PO DAILY 03/17/22 12/30/22 mg-copper 1 [id number] capsule (PreserVision AREDS-2) Previous Rx's Medication Instructions Recorded HINGED KNEE BRACE (left) #1 ea 08/31/21 metoprolol succinate 50 mg 50 mg PO TID 90 days #270 tabs 07/30/22 tablet,extended release 24 hr digoxin 125 mcg (0.125 mg) tablet 125 mcg PO SUMOWEFRSA@0900 90 days 09/19/22 #65 tabs ADULT BRIEFS #100 ea 10/08/22 ADULT WIPES #100 ea 10/08/22 atorvastatin 40 mg tablet 40 mg PO BEDTIME #90 tabs 11/07/22 febuxostat 40 mg tablet 40 mg PO DAILY PRN for gout pain 12/07/22 30 days #30 tabs folic acid 1 mg tablet 1 mg PO DAILY #90 tabs 12/17/22 dextromethorphan-guaifenesin 10 10 ml PO TID #237 mL 01/10/23 mg-100 mg/5 mL oral syrup nicotine 14 mg/24 hr daily 14 mg transdermal DAILY #30 ea 01/10/23 transdermal patch omeprazole 20 mg capsule,delayed 20 mg PO BID@0630,1630 #60 caps 01/10/23 release polyethylene glycol 3350 17 gram 17 g PO DAILY PRN Constipation #30 01/10/23 oral powder packet ea Allergies Allergy/AdvReac Type Severity Reaction Status Date / Time No Known Allergies Allergy Unknown UNKNOWN Verified 12/09/22 09:58 [NO KNOWN ALLERGIES] Review of Systems Review of Systems: Pertinent positives and negatives as stated in HPI [facility] Past Medical History Source: nursing notes reviewed Medical History Anemia Atrial fibrillation with rapid ventricular response Back pain Benign essential hypertension Bilateral lower extremity edema CAD (coronary artery disease) Cancer of upper lobe of right lung (~2013) Chronic atrial fibrillation Congestive heart failure COPD (chronic obstructive pulmonary disease) Gout Heart failure with reduced ejection fraction HLD (hyperlipidemia) Lumbar degenerative disc disease Neuropathy Osteoarthritis Osteoarthritis of knees, bilateral PAD (peripheral artery disease) Physical deconditioning Recurrent non-small cell lung cancer Smoker Type 2 diabetes mellitus with other diabetic kidney complication Vitamin D deficiency Wears dentures Surgical History History of angioplasty (~12/2020) History of back surgery History of brain surgery (~2003) History of bronchoscopy (~2020) History of cardiac cath (~02/2016) History of colonoscopy (~01/2001) History of lung biopsy History of lung surgery (~07/2013) History of lung surgery (~2019) History of partial colectomy (~01/2001) History of right knee surgery (~09/2005) History of thoracentesis (~09/2019) Family History Family History Mother Heart disease Father Heart disease Social History Social History Household Members: None Housing: Condominium Are you a primary health care liaison to a significant other at home: No Do you presently have visiting nurse or other home services: Yes Alcohol intake: unknown Patient Tobacco Use Status: Former Tobacco user Tobacco use type: Cigarette Cigarette Packs Per Day: 0.5 Cigarettes Per Day: 10 Years Smoked: 50 Smoked in Last 30 Days: No Second Hand Smoke Exposure: No Use of substances other than those prescribed or required for medical reasons: No Advance Directives Date on File: 10/05/21 service: No Current occupational status: retired Cognitive needs: Yes (cane) Hearing needs: No Vision needs: Yes Physical Exam Vital Signs: Vital Signs: Last Vital Signs Pulse 114 H 01/22/23 05:32 Resp 33 H 01/22/23 05:40 BP 125/75 01/22/23 05:32 Pulse Ox 98 01/22/23 05:32 O2 Del Method BiPAP 01/22/23 05:32 BMI result Body Mass Index 23.7 VITAL SIGNS: Reviewed. GENERAL: Cachectic, frail, in no acute distress. HEAD: Normocephalic/atraumatic EYES: PERRLA, EOMI EARS: Ext canals without abnormality NOSE: Nares patent bilateral OROPHARYNX: no oral lesions noted, posterior pharynx clear NECK: Supple, no adenopathy LUNGS: Decreased breath sounds bilaterally, mild tachypnea noted SpO2<96> on BiPAP CARDIOVASCULAR: Regular rate and rhythm without noted murmurs, no JVD bilateral 2 to 3+ pitting edema ABDOMEN: Soft, non-tender, non-distended with bowel sounds. MUSCULOSKELETAL: No tenderness, deformities, or effusions noted on gross inspection. EXTREMITIES: No cyanosis, clubbing or edema. SKIN: Inspection of the skin reveals no rashes NEUROLOGIC: Alert and oriented x 4. Strength and sensation to light touch were grossly intact x 4. Bedside ultrasound of the lungs demonstrates B lines bilaterally and most consistent with pulmonary edema. Medications Administered Discontinued Medications Generic Name Dose Route Start Last Admin Trade Name Freq PRN Reason Stop Dose Admin Furosemide 60 mg 01/22/23 05:25 01/22/23 05:28 Furosemide 100 Mg/10 Ml Vial IVPUSH 01/22/23 05:26 60 mg ONCE ONE Administration Protocol Piperacillin Sod/Tazobactam 50 mls @ 100 mls/hr 01/22/23 06:14 01/22/23 06:42 Sod 3.375 gm/ Sodium Chloride IV 01/22/23 06:43 100 mls/hr ONCE ONE Administration Medical Decision Making Medical Decision Making [facility] Narrative: 0525: 82-year-old male with history and clinical presentation, DDX: Acute CHF exacerbation, doubt chronic lung disease exacerbation, lower clinical suspicion for pneumonia, patient is in atrial fibrillation with RVR. Patient is on BiPAP as well as being given 60 mg of Lasix. I reviewed all investigations hematologic indices demonstrate chronically stable leukopenia with macrocytic anemia, no thrombocytopenia. Coagulation studies are within normal limits. VBG demonstrates respiratory acidosis with hypercapnia and pH-7.3. Chemistry indices not significant for electrolyte or liver enzyme abnormalities but there is an KISHAN, BNP-1366 and high sensitivity troponin is stable E elevated when compared to prior visits. Chest x-ray demonstrates a new nodular density in the lateral RML and worsening right basilar opacity. Patient will receive antibiotics after obtaining lactic acid and blood cultures. Will gradually attempt to wean patient off BiPAP after diuresis, there are no ICU beds currently. VBG without change. Signed out to DR Crabtree. - Titrate off of Bipap if possible as there are no ICU beds - Schmidt catheter - ?more Lasix Differential Diagnosis Differential Diagnoses: The differential diagnosis associated with the presentation includes Please see the discussion above Admission/Observation Consideration of admission/observation: Escalation of care including admission/observation considered Please see the discussion above Lab Data MDM Lab Attestation statement: I reviewed the patient's lab results. Please see the discussion above 01/22/23 05:25 01/22/23 05:25 Labs: Lab Results 01/22/23 01/22/23 01/22/23 Range/Units 05:25 05:28 06:41 WBC 4.0 L (4.8-10.8) X10*3/uL RBC 2.95 L (4.60-5.80) X10*6/uL Hgb 9.3 L (14.0-18.0) g/dl Hct 31.5 L (42.0-52.0) % MCV 106.8 H (80.0-98.0) fL MCH 31.5 (27.0-33.0) pg MCHC 29.5 L (31.0-36.0) g/dl RDW 17.5 H (11.0-16.0) % Plt Count 182 (160-400) X10*3/uL MPV 11.0 (9.4-12.4) fL Immature Gran % (Auto) 0.2 (0.0-0.4) % Neut % (Auto) 63.9 (45-73) % Lymph % (Auto) 14.2 L (20-40) % [place] % (Auto) 17.7 H (2-11) % Eos % (Auto) 3.5 (0-4) % Baso % (Auto) 0.5 (0-2) % Lymph # (Auto) 0.6 L (1.2-4.9) X10*3/uL [place] # (Auto) 0.7 (0.1-1.2) X10*3/uL Eos # (Auto) 0.1 (0.0-0.4) X10*3/uL Baso # (Auto) 0.0 (0.0-0.2) X10*3/uL Abs Immat Gran (auto) 0.01 (0.00-0.03) X10*3/uL Absolute Neuts (auto) 2.6 (2.0-8.3) x10*3/uL Absolute Nucleated RBC 0.020 H (0.0-0.012) X10*3/uL Nucleated RBC % (auto) 0.5 H (0.0-0.2) /100WBC PT 13.1 D (11.1-13.3) SEC INR 1.1 (0.9-1.1) VBG pH 7.30 L 7.30 L (7.32-7.43) VBG pCO2 76 75 mmHg VBG pO2 28 40 mmHg VBG HCO3 37 H 37 H (22-26) mmol/L VBG O2 Saturation 34.0 62.0 % VBG Base Excess 9.2 9.3 mmol/L Sodium 145 (135-145) mmol/L Potassium 5.1 (3.3-5.1) mmol/L Chloride 106 (96-108) mmol/L Carbon Dioxide 32 H (22-29) mmol/L Anion Gap 12 (12-20) BUN 44 H (9-16) mg/dL Creatinine 1.46 H (0.5-1.4) mg/dL Estim Creat Clear Calc 42.0 Estimated GFR 46 Random Glucose 119 H (60-115) mg/dL Calcium 8.9 (8.4-10.2) mg/dL Total Bilirubin 0.4 (0.0-1.0) mg/dL AST 23 (5-37) U/L ALT 15 (0-40) U/L Alkaline Phosphatase 92 (39-117) U/L Troponin I High Sens 26.3 D (<3.5-35.0) ng/L B-Natriuretic Peptide 1366 H (<100) pg/mL Total Protein 6.1 L (6.5-8.0) g/dL Albumin 3.1 L (3.5-5.0) g/dL Independent Interpretation I performed an independent interpretation of an: EKG Interpretation: Atrial fibrillation, HR-103, no STEMI, RBBB, QTC is within normal limits. Radiology Impression Discussion of test interpretation with radiology: I have reviewed the radiologist's reading. Radiologist Impression: Please see the discussion above External Record Review External record reviewed: Inpatient record, Outpatient record, Prior outpatient labs and Prior outpatient radiology Chronic Conditions Patient?s care impacted by: Hypertension and Other Atrial fibrillation, chronic anticoagulation, COPD, CHF Critical Care Time Critical Care Time Critical Care Time: Yes Total Critical Care Time: 45 Attestation: I personally attest to this time spent taking care of the patient. Discharge Plan Discharge Clinical Impression: Acute respiratory failure with hypoxia, Atrial fibrillation with RVR, COPD exacerbation, CHF exacerbation, Pneumonia, Lung mass, KISHAN (acute kidney injury) Patient Disposition: Admitted As Inpatient
[2023-01-22] MEDS: Furosemide 100 MG/10 ML VIAL 60 MG IVPUSH (05:28)
[2023-01-22 05:30] LABS: MANUAL DIFF FLAG NO
[2023-01-22 05:33] LABS: Basophils Percent Auto 0.5 % (0-2); Eosinophils Absolute Auto 0.1 X10*3/uL (0.0-0.4); Eosinophils Percent Auto 3.5 % (0-4); Hematocrit 31.5 % (42.0-52.0); Hemoglobin 9.3 g/dl (14.0-18.0); Imm Gran Abs Auto 0.01 X10*3/uL (0.00-0.03); Imm Gran Pct Auto 0.2 % (0.0-0.4); Lymphocytes Absolute Auto 0.6 X10*3/uL (1.2-4.9); Lymphocytes Percent Auto 14.2 % (20-40); Mean Corpuscular HGB Conc 29.5 g/dl (31.0-36.0); Mean Corpuscular Hemoglobin 31.5 pg (27.0-33.0); Mean Corpuscular Volume 106.8 fL (80.0-98.0); Monocytes Absolute Auto 0.7 X10*3/uL (0.1-1.2); Monocytes Percent Auto 17.7 % (2-11); NRBC Pct Auto 0.5 /100WBC (0.0-0.2); Neutrophils Absolute Auto 2.6 x10*3/uL (2.0-8.3); Neutrophils Percent Auto 63.9 % (45-73); Platelet Count 182 X10*3/uL (160-400); Red Blood Count 2.95 X10*6/uL (4.60-5.80); Red Cell Distribution Width 17.5 % (11.0-16.0)
[2023-01-22 05:34] LABS: Venous Blood Gas Refer to POC result
[2023-01-22 05:34] LABS: VBG Base Excess 9.2 mmol/L; VBG HCO3 37 mmol/L (22-26); VBG pCO2 76 mmHg; VBG pO2 28 mmHg
[2023-01-22 05:43] LABS: INTERNATIONAL NORM RATIO 1.1 (0.9-1.1); Prothrombin Time 13.1 SEC (11.1-13.3)
--- NOTE | 2023-01-22 05:50 | PC.NURSE ---
Pt aox3. Arrives via EMS from [facility] reporting sob with cough. Pt found to be sat at 77% when EMS arrived. Pt then place on cpap with o2 improvement to 96%. RT and MD at bedside. Pt placed on Bipap 18/10 sat at 94%. Pt arrived in A-fib with HR of 109. Bilateral leg edema present on arrival. 60mg of Lasix administered as ordered via 18G IV line placed by EMS on the R AC. Labs drawn and sent to the lab. Urinal provided to pt. Call ross placed within reach. Pt encouraged to ask for assistance. Pt aware of plan of care.
[2023-01-22 05:54] LABS: Troponin-I High Sensitivity 26.3 ng/L (<3.5-35.0)
[2023-01-22 05:55] LABS: Alanine Aminotransferase 15 U/L (0-40); Albumin Level 3.1 g/dL (3.5-5.0); Alkaline Phosphatase 92 U/L (39-117); Anion Gap 12 (12-20); Aspartate Amino Transferase 23 U/L (5-37); B Type Natriuretic Peptide 1366 pg/mL (<100); Bilirubin Total 0.4 mg/dL (0.0-1.0); Blood Urea Nitrogen 44 mg/dL (9-16); Calcium 8.9 mg/dL (8.4-10.2); Carbon Dioxide 32 mmol/L (22-29); Chloride 106 mmol/L (96-108); Estimated Glomerular Filt Rate 46; Glucose Random 119 mg/dL (60-115); Potassium 5.1 mmol/L (3.3-5.1); Sodium 145 mmol/L (135-145); Total Protein 6.1 g/dL (6.5-8.0)
--- NOTE | 2023-01-22 06:20 | PC.NURSE ---
[place] cath placed. Pt tolerated well.
[2023-01-22] MEDS: Piperacillin Sodium/Tazobactam 3.375 GM in 0.9 % Sodium Chloride 50 ML IV (06:42)
[2023-01-22 06:46] LABS: VBG Base Excess 9.3 mmol/L; VBG HCO3 37 mmol/L (22-26); VBG pCO2 75 mmHg; VBG pO2 40 mmHg
[2023-01-22 06:47] LABS: Venous Blood Gas Refer to POC result
[2023-01-22 06:55] LABS: Lactic Acid 0.8 mmol/L (0.5-2.0)
[2023-01-22] MEDS: Albuterol Sulfate 2.5 MG, Albuterol/Iprat 2.5/0.5MG 3 ML 3 ML INHALE (07:22)
[2023-01-22] MEDS: methylPREDNISolone Sod Succ 125 MG/2 ML VIAL 60 MG IVPUSH (07:43)
--- NOTE | 2023-01-22 07:45 | PC.NURSE ---
PT TOLERATING BIPAP. F/C DRAINING CLEAR YELLOW URINE. ADJUSTED FOR COMFORT
[2023-01-22 07:46] LABS: Digoxin 0.6 ng/mL (0.8-2.0)
[2023-01-22 07:52] LABS: COVID-19 Test Negative (Negative); IDNOW Serial# BCCEAD1C
[2023-01-22 07:53] LABS: Troponin-I High Sensitivity 26.3 ng/L (<3.5-35.0)
[2023-01-22 08:10] LABS: ABG Base Excess 9.4 mmol/L; ABG HCO3 36 mmol/L (22-26); ABG pCO2 62 mmHg (32-45); ABG pH 7.37 (7.35-7.45); ABG pO2 74 mmHg (83-108)
--- NOTE | 2023-01-22 09:36 | PHA.MEDREC ---
Pharmacy Consult ? Medication Reconciliation Pharmacy has completed the medication reconciliation. List from [facility]
[2023-01-22 10:17] LABS: MRSA Nasal PCR NEGATIVE (Negative); SA Nasal PCR NEGATIVE (Negative)
--- NOTE | 2023-01-22 10:34 | PC.NURSE ---
pt taken off BIPAP at 905. Pt dessated to 87 but then came up to 90 w/o2. pt was placed on oxymask after, and is satting 96%. about 1000 in aguilar drainage bag, byron observed.
--- NOTE | 2023-01-22 10:50 | PC.RT ---
pt was taken off bipap by RT at 8:30 am per MD. pt stated they do not wear O2 at home. pt gadiel well for an hour and then was placed on a 5L oxymask per sats. will continue to monitor and wean sats throughout the day
--- NOTE | 2023-01-22 11:18 | PM.IMHP ---
History of Present Illness Date of Service: 01/22/23 Attending physician on admission: Sundeep Chapin Chief Complaint: SOB, lower leg edema Pt is an 82-year-old male with a PMH significant for?severe COPD, recurrent metastatic lung cancer s/p right lobectomy, HFpEF, chronic AFib, HLD, PAD, and hx of gastritis who presents to the ED from [facility] with increasing shortness of breath and hypoxia. Patient was noted to be satting at 77% on RA, placed on CPAP which improved saturation to 97%. Patient states that respiratory symptoms began approximately 2 days ago, however he noticed increased lower leg edema a few days prior to that. Patient reports that he had not been given his Lasix at rehab for the first week and a half, has only received it for the past couple of days. Says his cough has been productive. Denies chest pain/pressure, palpitations. No fever, chills, nausea, vomiting, diarrhea. No abdominal pain. In the ED patient was tachycardic up to 122, tachypneic to 33, with BPH showing hypercapnia, respiratory acidosis, pH of 7.30. Patient's was initially placed on BiPAP and placed on OxyMask 6 L. ABG was taken after BiPAP and 60 mg Lasix IV with pH 7.37 with reduction and pCO2 and bicarb. Labs were significant for BNP 1366 (elevated above baseline, BNP 686 at last admission on 12/30/2022), troponin 26.3 with repeat flat at 26.3, creatinine elevated at 1.46. Lactic acid WNL at 0.8. Hepatic function baseline. Electrolytes WNL. Coags WNL. Patient tested negative for COVID, and nasal screens for MRSA and S aureus, CXR showed new nodular density at the lateral mid to upper right lung which may reflect fissural fluid verses a new 3.6 cm mass; redemonstrated right upper lobe mass similar to 12/30/2022; also found small pleural effusions and suspected worsening right basilar airspace opacity. EKG demonstrated atrial fibrillation with RVR of 1 3 with no evidence of ST elevations or depressions. Echocardiogram on 12/30/2022 normal left ventricular size and systolic function with estimated EF of 55-60%, mildly increased right ventricular cavity size with moderately decreased right ventricular systolic function, and significantly elevated right arterial pressure with moderate pulmonary hypertension. Pt was treated with furosemide 60 mg IV, DuoNeb, Solu-Medrol 60 mg IV, Zosyn. Pt will be admitted to the hospital for acute hypoxic respiratory failure in the setting of CHF exacerbation likely secondary to medication noncompliance. Review of Systems Review of Systems: Shortness of breath Productive cough Increasing lower leg edema Denies chest pain/pressure, palpitations Denies pleuritic chest pain No fever, chills, nausea, vomiting, abdominal pain Yes all other systems are reviewed and are negative [facility] Medical History Atrial fibrillation with rapid ventricular response Recurrent non-small cell lung cancer Anemia Heart failure with reduced ejection fraction PAD (peripheral artery disease) Wears dentures Congestive heart failure Cancer of upper lobe of right lung (~2013) Neuropathy Physical deconditioning Vitamin D deficiency Osteoarthritis of knees, bilateral Gout Lumbar degenerative disc disease Benign essential hypertension Type 2 diabetes mellitus with other diabetic kidney complication Bilateral lower extremity edema Chronic atrial fibrillation Osteoarthritis Back pain HLD (hyperlipidemia) CAD (coronary artery disease) Smoker COPD (chronic obstructive pulmonary disease) Family History Mother Heart disease Father Heart disease Surgical History History of lung biopsy History of bronchoscopy (~2020) History of thoracentesis (~09/2019) History of partial colectomy (~01/2001) History of colonoscopy (~01/2001) History of back surgery History of angioplasty (~12/2020) History of brain surgery (~2003) History of right knee surgery (~09/2005) History of cardiac cath (~02/2016) History of lung surgery (~2019) History of lung surgery (~07/2013) Social History Household Members: None Housing: Condominium Are you a primary live in caregiver to a significant other at home: No Do you presently have visiting nurse or other home services: Yes Alcohol intake: unknown Patient Tobacco Use Status: Current everyday Tobacco user Tobacco use type: Cigarette Cigarette Packs Per Day: 0.5 Cigarettes Per Day: 10 Years Smoked: 50 Smoked in Last 30 Days: Yes Patient Interested in Nicotine Replacement: Yes Second Hand Smoke Exposure: No Use of substances other than those prescribed or required for medical reasons: No Currently Displaying Signs/Symptoms of Drug Intoxication Withdrawal: No Have you been hit, kicked, punched, or otherwise hurt by someone within the past year? If so, by whom?: No Do you feel safe in your current relationship?: No Current Relationship Is there a partner from a previous relationship who is making you feel unsafe now?: No Are you made to feel afraid or neglected: No Adventism Healthcare Practices: Hindu Advance Directives: Yes Advance Directives on File: Yes Advance Directives Date on File: 10/05/21 Do you have thoughts of harming others: None Do you have a plan to hurt others: No Plan Recently lost weight without trying: No How much weight loss: Not applicable Eating poorly because of decreased appetite: No Nutrition screen score: 0 Nutrition Risks: No Nutritional Risk Poor oral hygiene: No service: No Current occupational status: retired Cognitive needs: Yes (cane) Hearing needs: No Vision needs: Yes Meds Allergies Allergy/AdvReac Type Severity Reaction Status Date / Time No Known Allergies Allergy Unknown UNKNOWN Verified 12/09/22 09:58 [NO KNOWN ALLERGIES] Home Medications Medication Instructions Recorded Confirmed Last Taken Type calcium carbonate 600 mg-vitamin 1 tab PO DAILY 07/10/20 01/22/23 03/16/22 History D3 5 mcg (200 unit) tablet ferrous sulfate 325 mg (65 mg 325 mg PO DAILY@1500 03/17/22 01/22/23 03/16/22 History iron) tablet vit C 250 mg-vit E 90 mg-zinc 40 1 tab PO DAILY 03/17/22 01/22/23 03/16/22 History mg-copper 1 bi-tndoqx-dhyfen capsule (PreserVision AREDS-2) albuterol sulfate 90 mcg/actuation 2 puff inhalation Q6H PRN 01/22/23 01/22/23 Unknown History aerosol inhaler Shortness Of Breath Or Wheezing dextromethorphan HBr 15 mg/5 mL 30 mg PO DAILY 01/22/23 01/22/23 Unknown History oral liquid digoxin 125 mcg (0.125 mg) tablet 125 mcg PO SUMOWEFR@0900 01/22/23 01/22/23 Unknown History furosemide 40 mg tablet 60 mg PO DAILY 01/22/23 01/22/23 Unknown History guaifenesin 600 mg tablet, 1,200 mg PO Q12H PRN Cough 01/22/23 01/22/23 Unknown History extended release 12 hr Physical Exam Vital Signs and Narrative: Vital Signs: Last Vital Signs Pulse 122 H 01/22/23 09:40 Resp 16 01/22/23 09:40 BP 125/75 01/22/23 05:32 Pulse Ox 99 01/22/23 09:40 O2 Del Method Oxymask 01/22/23 09:40 O2 Flow Rate 6 01/22/23 09:40 BMI result Body Mass Index 23.7 Constitutional: Alert, frail-looking, in no acute distress. Mental Status: Oriented to person, place and time. Eyes: Pupils are equal, round, and reactive to light. Ear, Nose, and Throat: Oropharynx clear, mucous membranes moist. Ears and nose without deformities. Trachea midline. Respiratory: Mild bilateral expiratory rhonchi, especially in mid lobes. Cardiovascular: Irregularly irregular rhythm, tachycardic. Gastrointestinal: Abdomen soft, non-tender, non-distended. Normal bowel sounds. Neurologic: Cranial nerves II-XII are grossly intact bilaterally. No focal neurological deficits. Moves all extremities spontaneously. Skin: Warm, dry. Musculoskeletal: No cyanosis or clubbing. Extremities: 3+ lower leg edema bilaterally. 1+ pitting edema in upper right extremity. Psychiatric: Normal mood and affect. Results Labs 01/24/23 05:43 01/24/23 05:43 Labs: Laboratory Results - last 24 hr 01/22/23 01/22/23 01/22/23 05:25 05:28 06:38 MCV 106.8 H MCH 31.5 MCHC 29.5 L RDW 17.5 H Plt Count 182 MPV 11.0 Immature Gran % (Auto) 0.2 Neut % (Auto) 63.9 Lymph % (Auto) 14.2 L [place] % (Auto) 17.7 H Eos % (Auto) 3.5 Baso % (Auto) 0.5 Lymph # (Auto) 0.6 L [place] # (Auto) 0.7 Eos # (Auto) 0.1 Baso # (Auto) 0.0 Abs Immat Gran (auto) 0.01 Absolute Neuts (auto) 2.6 Absolute Nucleated RBC 0.020 H Nucleated RBC % (auto) 0.5 H PT 13.1 D INR 1.1 O2 Saturation ABG pH at Pt Temp ABG pCO2 at Pt Temp ABG pO2 at Pt Temp ABG HCO3 ABG Base Excess (Actual) VBG pH 7.30 L VBG pCO2 76 VBG pO2 28 VBG HCO3 37 H VBG O2 Saturation 34.0 VBG Base Excess 9.2 Anion Gap 12 Estim Creat Clear Calc 42.0 Estimated GFR 46 Random Glucose 119 H Lactic Acid 0.8 Calcium 8.9 Total Bilirubin 0.4 AST 23 ALT 15 Alkaline Phosphatase 92 B-Natriuretic Peptide 1366 H Total Protein 6.1 L Albumin 3.1 L Nasal Screen MRSA (PCR) Nasal S. aureus Screen Nasal MRSA/S.aureus Interp Digoxin COVID-19 ([facility]O) COVID-19 Clin Com 01/22/23 01/22/23 01/22/23 06:41 07:26 07:40 MCV MCH MCHC RDW Plt Count MPV Immature Gran % (Auto) Neut % (Auto) Lymph % (Auto) [place] % (Auto) Eos % (Auto) Baso % (Auto) Lymph # (Auto) [place] # (Auto) Eos # (Auto) Baso # (Auto) Abs Immat Gran (auto) Absolute Neuts (auto) Absolute Nucleated RBC Nucleated RBC % (auto) PT INR O2 Saturation ABG pH at Pt Temp ABG pCO2 at Pt Temp ABG pO2 at Pt Temp ABG HCO3 ABG Base Excess (Actual) VBG pH 7.30 L VBG pCO2 75 VBG pO2 40 VBG HCO3 37 H VBG O2 Saturation 62.0 VBG Base Excess 9.3 Anion Gap Estim Creat Clear Calc Estimated GFR Random Glucose Lactic Acid Calcium Total Bilirubin AST ALT Alkaline Phosphatase B-Natriuretic Peptide Total Protein Albumin Nasal Screen MRSA (PCR) NEGATIVE Nasal S. aureus Screen NEGATIVE Nasal MRSA/S.aureus Interp SEE NOTE Digoxin 0.6 L COVID-19 ([facility]) Negative COVID-19 Clin Com See Note 01/22/23 08:05 MCV MCH MCHC RDW Plt Count MPV Immature Gran % (Auto) Neut % (Auto) Lymph % (Auto) [place] % (Auto) Eos % (Auto) Baso % (Auto) Lymph # (Auto) [place] # (Auto) Eos # (Auto) Baso # (Auto) Abs Immat Gran (auto) Absolute Neuts (auto) Absolute Nucleated RBC Nucleated RBC % (auto) PT INR O2 Saturation 95.0 ABG pH at Pt Temp 7.37 ABG pCO2 at Pt Temp 62 H* ABG pO2 at Pt Temp 74 L ABG HCO3 36 H ABG Base Excess (Actual) 9.4 VBG pH VBG pCO2 VBG pO2 VBG HCO3 VBG O2 Saturation VBG Base Excess Anion Gap Estim Creat Clear Calc Estimated GFR Random Glucose Lactic Acid Calcium Total Bilirubin AST ALT Alkaline Phosphatase B-Natriuretic Peptide Total Protein Albumin Nasal Screen MRSA (PCR) Nasal S. aureus Screen Nasal MRSA/S.aureus Interp Digoxin COVID-19 ([facility]) COVID-19 Clin Com Imaging Radiologist's Impressions: Impressions Chest X-Ray 01/22/23 05:48 IMPRESSION: 1. New nodular density in the lateral mid to upper right lung may reflect fissural fluid versus a new 3.6 cm mass. 2. Redemonstrated right upper lobe mass, similar to 12/30/2022. 3. Small pleural effusions. 4. Suspect worsening right basilar airspace opacity. 5. Enlarged cardiac silhouette. Assessment and Plan (1) KISHAN (acute kidney injury): Status: Acute (2) CHF exacerbation: Status: Acute (3) COPD exacerbation: Status: Acute (4) Atrial fibrillation with RVR: Status: Acute (5) Acute respiratory failure with hypoxia: Status: Acute Plan Pt is an 82-year-old male with a PMH significant for?severe COPD, recurrent metastatic lung cancer s/p right lobectomy, HFpEF, chronic AFib, HLD, PAD, and hx of gastritis who presents to the ED from [facility] with increasing shortness of breath and hypoxia. Pt will be admitted to the hospital for acute hypoxic respiratory failure in the setting of CHF exacerbation likely secondary to medication noncompliance. Acute hypoxic respiratory failure in the setting of HFpEF exacerbation Satting at 77% at rehab, placed initially BiPAP ball and then weaned to OxyMask 6 L Patient with increasing SOB, bilateral pitting and lower leg edema, elevated BNP, pleural effusions on CXR Likely secondary to not taking Lasix at rehab for 1 1/[address] on Lasix drip at 5 milligrams/hour, likely transition to Lasix IV push tomorrow Follow Mag mamta, I/O Daily weights, low-salt diet Received echocardiogram on last admission on 12/30/2022 Patient with Schmidt catheter in place Monitor respiratory status, wean O2 as necessary Monitor on telemetry Acute COPD exacerbation Likely secondary to CHF exacerbation Will treat with Xopenex d/t tachycardia, Solu-Medrol Continue home inhalers Pt currently on OxyMask Monitor respiratory status, we would O2 as necessary Tachycardia, tachypnea Likely secondary to CHF and COPD exacerbations, not sepsis No indication of bacterial infection/pneumonia Patient given empiric antibiotics in ED, will hold on any additional antibiotics at this time KISHAN Patient's creatinine 1.46, elevated above baseline of 0.90 Likely cardiorenal Should improve with diuretics, treat as above Follow BMP Persist AFib with RVR HR has been elevated as high as 130s Previously anticoagulated on Coumadin Patient's Coumadin was held on last admission 12/30/2022 due to drop in H&H; patient then transfused 2 units of PRBCs Patient with history of chronic anemia and no active bleeding noted Seen by GI who advised hold Coumadin for 2 weeks and then recommended to resume on 01/24/2023 Coumadin low dose to keep INR between 2-2.5 Continue digoxin, keep digoxin levels <1.0 since pt geriatric, per cardiology Continue metoprolol Monitor on telemetry Abnormal CXR findings CXR found new nodular density in the lateral mid to upper right lung may reflect fissural fluid verses a new 3.6 cm mass Patient with history of recurrent metastatic lung cancer Should follow up outpatient with Oncology Hx of gastritis Continue omeprazole 20 mg b.i.d. for another 2 weeks Will switch to omeprazole 20 mg daily on 02/08/2023, per GI Full Code Attending:?Dr. Chapin DVT Prophylaxis: Lovenox for now, switch to Coumadin on 01/24 Pt will require a hospitalization of at least two nights for treatment of?acute hypoxic respiratory failure in the setting CHF and COPD exacerbations. Patient will need treatment with IV Lasix, supplemental O2, systemic steroids, breathing treatments, and close monitoring.. Time Spent With Patient Time: Total time managing care of this patient today ____ minutes. Quality Stroke Does the patient have a stroke diagnosis?: No VTE Prior VTE?: No VTE Risk Level:: Medical - moderate - high VTE Device Contraindication: Treatment Not Indicated VTE Drug Contraindication: N/A - Med Ordered
--- NOTE | 2023-01-22 12:27 | PC.NURSE ---
oxymask 5L sats 98% 1400ml in Schmidt bag, emptied Afib on monitor - up to 125 - hospitalist aware. will CTM
[2023-01-22] MEDS: Digoxin 0.125 MG TABLET PO (13:18)
[2023-01-22] MEDS: Folic Acid 1 MG TABLET PO (13:18)
[2023-01-22] MEDS: Metoprolol Succinate ER 50 MG TAB.ER.24H PO (13:18)
[2023-01-22] MEDS: Nicotine 14 MG PATCH.TD24 TRANSDERMA (13:21)
--- NOTE | 2023-01-22 13:39 | MHC.CM.PN ---
AT BASELINE, PT LIVES ALONE AND HAS HOUSEKEEPING SERVICES 2X/WEEK HE HAS BOTH A CANE AND A WALKER HE USES NEEDED PT WAS DISCHARGED TO [facility] FOR STR ON 01/08/23 PT REPORTS HE FEELS HE WILL NEED TO RETURN TO SNF TO COMPLETE STR REFERRAL SENT TO [facility] PT WILL NEED BLS TRANSPORT IMM DELIVERED
--- NOTE | 2023-01-22 14:00 | PC.NURSE ---
called floor to give report, waiting for callback
[2023-01-22] MEDS: Furosemide 200 MG in 0.9 % Sodium Chloride 80 ML IVCONT (14:49)
[2023-01-22] MEDS: Omeprazole 20 MG CAPSULE.DR PO (16:10)
[2023-01-22] MEDS: Ferrous Sulfate 324 MG TABLET.DR PO (16:10)
[2023-01-22] MEDS: 0.9 % Sodium Chloride Flush 3 ML SYRINGE IVFLUSH ×2 (16:10→20:00)
[2023-01-22] MEDS: Enoxaparin Sodium 40 MG/0.4 ML SYRINGE SUBCUT (16:21)
[2023-01-22] MEDS: Atorvastatin Calcium 40 MG TABLET PO (20:00)
[2023-01-22] MEDS: methylPREDNISolone Sod Succ 40 MG/ML VIAL IVPUSH (20:00)
[2023-01-23] VITALS (9 sets, daily range): BP systolic 90–144; BP diastolic 55–73; PULSE 90–122; RESP 19–35; TEMP 36.3–37.7; O2SAT 91–99
[2023-01-23 00:18] LABS: ABG Refer to POC result
[2023-01-23] MEDS: guaiFENesin LA 600 MG TAB.ER.12H 1200 MG PO (01:25)
[2023-01-23] MEDS: Omeprazole 20 MG CAPSULE.DR PO ×2 (06:08→16:20)
[2023-01-23 07:05] LABS: Hematocrit 28.5 % (42.0-52.0); Hemoglobin 8.7 g/dl (14.0-18.0); Mean Corpuscular HGB Conc 30.5 g/dl (31.0-36.0); Mean Corpuscular Hemoglobin 31.4 pg (27.0-33.0); Mean Corpuscular Volume 102.9 fL (80.0-98.0); Mean Platelet Volume 11.3 fL (9.4-12.4); Platelet Count 188 X10*3/uL (160-400); Red Blood Count 2.77 X10*6/uL (4.60-5.80); Red Cell Distribution Width 17.4 % (11.0-16.0); White Blood Count 3.4 X10*3/uL (4.8-10.8)
[2023-01-23 07:26] LABS: Anion Gap 14 (12-20); Blood Urea Nitrogen 48 mg/dL (9-16); Calcium 8.7 mg/dL (8.4-10.2); Carbon Dioxide 33 mmol/L (22-29); Chloride 103 mmol/L (96-108); Creatinine Clr Calc Pharmacy 43.8; Estimated Glomerular Filt Rate 48; Glucose Random 172 mg/dL (60-115); Magnesium 2.1 mg/dL (1.6-2.6); Potassium 4.5 mmol/L (3.3-5.1); Sodium 145 mmol/L (135-145)
--- NOTE | 2023-01-23 07:33 | PC.NURSE ---
Assumed care at 23:00. Patient initially on Bipap 10/5 and 24%, poorly tolerated, repeatedly pulls off mask. Patient then requested a break from mask and was having productive cough of clear sputum moderate amount, 6 LPM oxymask, was reporting shortness of breath as well. Patient was given xopenex inhaler by RT at that time as well as guaifenesin tabs PRN with effect. Patient also on lasix gtt, 5 mg/hour, and had 1100 ccs out yellow urine via aguilar, after already being -1850 ccs on I&O. Reports a sore area on left buttock that is tender to touch, but appears to be healed/not a wound, a coccygeal foam is placed for prevention, and patient also has bandaid.
[2023-01-23] MEDS: Folic Acid 1 MG TABLET PO (07:55)
[2023-01-23] MEDS: methylPREDNISolone Sod Succ 40 MG/ML VIAL IVPUSH (07:55)
[2023-01-23] MEDS: Metoprolol Succinate ER 50 MG TAB.ER.24H PO ×3 (07:55→20:26)
[2023-01-23] MEDS: Nicotine 14 MG PATCH.TD24 TRANSDERMA (07:56)
[2023-01-23] MEDS: 0.9 % Sodium Chloride Flush 3 ML SYRINGE IVFLUSH ×2 (07:57→16:20)
[2023-01-23] MEDS: Enoxaparin Sodium 40 MG/0.4 ML SYRINGE SUBCUT (14:18)
[2023-01-23] MEDS: Furosemide 200 MG in 0.9 % Sodium Chloride 80 ML IVCONT (14:18)
[2023-01-23] MEDS: Ferrous Sulfate 324 MG TABLET.DR PO (14:19)
--- NOTE | 2023-01-23 17:02 | P.PNIM_ITS ---
Subjective Subjective Date of Service: 01/23/23 Interval History: feeling better this morning less shortness of breath, sleep on 2 pillows, noted to have bilateral lower extremity edema well last 4-5 days, denies chest pain, no lightheadedness, no dizziness, no fevers, no chills complaining of cough productive of mild clear phlegm Review of Systems all other system reviewed and negative Physical Exam 2 Vital Signs: Vital Signs: Last Vital Signs Temp 97.6 F 01/23/23 15:50 Pulse 122 H 01/23/23 15:50 Resp 19 01/23/23 15:50 BP 118/73 01/23/23 15:50 Pulse Ox 98 01/23/23 15:50 O2 Del Method Nasal Cannula 01/23/23 15:50 O2 Flow Rate 4 01/23/23 15:50 BMI result Body Mass Index 23.7 Const: Other: General:? awake alert x3, in no acute distress Neck no JVD Resp:? clear to auscultation, no crackles, good air movement CVS: S1,S2, irregular , bilateral pitting edema GI: +BS, NT, no distention Skin: No rash Neuro:? motor grossly intact Psych: appropriate affect Objective Data Active Medications Acetaminophen (Acetaminophen 325 Mg Tablet) 650 mg PO Q6H PRN PRN Reason: Pain, Mild (Pain Scale 1-3) Albuterol Sulfate (Albuterol Sulfate 90 Mcg 8 Gm Inhaler) 2 puff INHALE Q6H PRN PRN Reason: Shortness Of Breath Or Wheezing Atorvastatin Calcium (Atorvastatin Calcium 40 Mg Tablet) 40 mg PO BEDTIME [facility] Last Admin: 01/22/23 20:00 Dose: 40 mg Documented By: HILARY Digoxin (Digoxin 0.125 Mg Tablet) 0.125 mg PO SUMOWEFR@0900 [facility] Last Admin: 01/22/23 13:18 Dose: 0.125 mg Documented By: ASAD Docusate Sodium (Docusate Sodium 100 Mg Capsule) 100 mg PO DAILY PRN PRN Reason: Constipation Enoxaparin Sodium (Enoxaparin Sodium 40 Mg/0.4 Ml Syringe) 40 mg SUBCUT Q24H [facility] Last Admin: 01/23/23 14:18 Dose: 40 mg Documented By: VAUGHN Ferrous Sulfate (Ferrous Sulfate 324 Mg Tablet.) 324 mg PO DAILY@1500 [facility] Last Admin: 01/23/23 14:19 Dose: 324 mg Documented By: VAUGHN Folic Acid (Folic Acid 1 Mg Tablet) 1 mg PO DAILY [facility] Last Admin: 01/23/23 07:55 Dose: 1 mg Documented By: VAUGHN Guaifenesin (Guaifenesin La 600 Mg Tab.Er.12h) 1,200 mg PO Q12H PRN PRN Reason: Cough Last Admin: 01/23/23 01:25 Dose: 1,200 mg Documented By: ANTONIO Furosemide 200 mg/ Sodium (Chloride) 100 mls @ 2.5 mls/hr IVCONT .Q24H [facility] Last Admin: 01/23/23 14:18 Dose: 5 mg/hr, 2.5 mls/hr Documented By: VAUGHN Levalbuterol HCl (Levalbuterol Hcl 1.25 Mg/3 Ml Vial.Neb) 1.25 mg INHALE Q4H PRN PRN Reason: Shortness of Breath/Wheezing Methylprednisolone Sodium Succinate (Methylprednisolone Sod Succ 40 Mg/Ml Vial) 40 mg IVPUSH Q12H [facility] Last Admin: 01/23/23 07:55 Dose: 40 mg Documented By: VAUGHN Metoprolol Succinate (Metoprolol Succinate Er 50 Mg Tab.Er.24h) 50 mg PO TID [facility]; Protocol Last Admin: 01/23/23 14:29 Dose: 50 mg Documented By: VAUGHN Nicotine (Nicotine 14 Mg Patch.Td24) 14 mg TRANSDERMA DAILY [facility] Last Admin: 01/23/23 07:56 Dose: 14 mg Documented By: VAUGHN Omeprazole (Omeprazole 20 Mg Capsule.Dr) 20 mg PO BID@0630,1630 [facility] Last Admin: 01/23/23 16:20 Dose: 20 mg Documented By: VAUGHN Ondansetron HCl (Ondansetron Hcl 4 Mg/2 Ml Vial) 4 mg IVPUSH Q8H PRN PRN Reason: Nausea and Vomiting Polyethylene Glycol (Polyethylene Glycol 3350 17 Gm Powd.Pack) 17 gm PO DAILY PRN PRN Reason: Constipation Sodium Chloride (0.9 % Sodium Chloride Flush 3 Ml Syringe) 3 ml IVFLUSH QSHIFT [facility] Last Admin: 01/23/23 16:20 Dose: 3 ml Documented By: VAUGHN Labs 01/23/23 06:30 01/23/23 06:30 Labs: Laboratory Results - last 24 hr 01/23/23 06:30 MCV 102.9 H MCH 31.4 MCHC 30.5 L RDW 17.4 H Plt Count 188 MPV 11.3 Absolute Nucleated RBC 0.000 Nucleated RBC % (auto) 0.0 Anion Gap 14 Estim Creat Clear Calc 43.8 Estimated GFR 48 Random Glucose 172 H Calcium 8.7 Magnesium 2.1 Microbiology Microbiology Results: Microbiology 01/22/23 06:38 Blood Culture - Preliminary Blood - Venous No growth after 24 hours. 01/22/23 06:38 Blood Culture - Preliminary Blood - Venous No growth after 24 hours. Assessment and Plan (1) KISHAN (acute kidney injury): Status: Acute (2) Lung mass: Status: Acute (3) CHF exacerbation: Status: Acute Plan 82-year-old male with a PMH significant for?severe COPD, recurrent metastatic lung cancer s/p right lobectomy, HFpEF, chronic AFib, HLD, PAD, and hx of gastritis who presents to the ED from [facility] with increasing shortness of breath and hypoxia. Pt will be admitted to the hospital for acute hypoxic respiratory failure in the setting of CHF exacerbation likely secondary to medication noncompliance. Acute hypoxic respiratory failure in the setting of HFpEF exacerbation, CHF exacerbated by AFib and RVR and right-sided heart failure, pulmonary hypertension s/p BiPAP treatment in ED and then weaned to OxyMask 6 L, shortness of breath improving now on nasal cannula finger oximetry 96%, will continue IV Lasix drip 3 L negative since admission, continue Schmidt catheter Follow lytes, Mag, I/O,BNP Daily weights, low-salt diet Received echocardiogram on last admission on 12/30/2022 showed EF 55-60% moderately decreased right ventricular systolic function with elevated right atrial pressures, moderate pulmonary hypertension and indeterminate diastolic function Monitor respiratory status, wean O2 as necessary Monitor on telemetry Acute COPD exacerbation resolved on Xopenex d/t tachycardia, dc iv Solu-Medrol Continue home inhalers Monitor respiratory status, being out to Tachycardia, tachypnea Likely secondary to CHF, anxiety, not sepsis No indication of bacterial infection/pneumonia KISHAN Patient's creatinine 1.46, on admission elevated above baseline of 0.90, avoid nephrotoxins Likely cardiorenal continue IV diuretics renal function remained stable Follow BMP Persist AFib with RVR continue metoprolol and digoxin, Coumadin on hold due to recent drop in H&H requiring 2 units of packed RBC on 12/30/2022 Abnormal CXR findings CXR found new nodular density in the lateral mid to upper right lung may reflect fissural fluid verses a new 3.6 cm mass, Patient with history of recurrent metastatic lung cancer recommend follow up outpatient with Oncology, inform daughter about chest x-ray findings chronic anemia with Hx of gastritis stable hematocrit. Continue omeprazole 20 mg b.i.d. for another 2 weeks Will switch to omeprazole 20 mg daily on 02/08/2023, per GI, follow CBC home Full Code DVT Prophylaxis: Lovenox for now, switch to Coumadin on 01/24 Pt. will require continued inpatient hospitalization for treatment of?acute hypoxic respiratory failure in the setting CHF Patient will need treatment with IV Lasix, supplemental O2, breathing treatments, and close monitoring.. Time Spent With Patient Time: Total time managing care of this patient today ____ minutes. Quality Stroke Does the patient have a stroke diagnosis?: No VTE Prior VTE?: No VTE Risk Level:: Medical - moderate - high VTE Device Contraindication: Treatment Not Indicated VTE Drug Contraindication: N/A - Med Ordered
[2023-01-23] MEDS: Atorvastatin Calcium 40 MG TABLET PO (20:26)
[2023-01-23] MEDS: guaiFENesin DM 100/10/5 ML 5 ML SYRUP 10 ML PO (20:30)
[2023-01-23] MEDS: Acetaminophen 325 MG TABLET 650 MG PO (20:30)
[2023-01-24] VITALS (7 sets, daily range): BP systolic 109–125; BP diastolic 52–68; PULSE 52–112; RESP 18–22; TEMP 36.1–37.1; O2SAT 91–94; BMI 24.8
[2023-01-24] MEDS: Melatonin 3 MG TABLET 6 MG PO (00:33)
[2023-01-24] MEDS: Omeprazole 20 MG CAPSULE.DR PO ×2 (06:11→15:26)
[2023-01-24 06:44] LABS: Hematocrit 28.1 % (42.0-52.0); Hemoglobin 8.5 g/dl (14.0-18.0)
[2023-01-24 06:48] LABS: Anion Gap 12 (12-20); Blood Urea Nitrogen 58 mg/dL (9-16); Calcium 8.6 mg/dL (8.4-10.2); Carbon Dioxide 35 mmol/L (22-29); Chloride 102 mmol/L (96-108); Creatinine Clr Calc Pharmacy 39.3; Estimated Glomerular Filt Rate 43; Glucose Random 136 mg/dL (60-115); Potassium 4.2 mmol/L (3.3-5.1); Sodium 145 mmol/L (135-145)
[2023-01-24 06:49] LABS: B Type Natriuretic Peptide 677 pg/mL (<100)
[2023-01-24] MEDS: Metoprolol Succinate ER 50 MG TAB.ER.24H PO ×3 (08:12→21:10)
[2023-01-24] MEDS: Digoxin 0.125 MG TABLET PO (08:12)
[2023-01-24] MEDS: Nicotine 14 MG PATCH.TD24 TRANSDERMA (08:12)
[2023-01-24] MEDS: Folic Acid 1 MG TABLET PO (08:12)
[2023-01-24] MEDS: Docusate Sodium 100 MG CAPSULE PO (08:17)
--- NOTE | 2023-01-24 11:49 | PM.CNCAR ---
History of Present Illness History of Present Illness Date of Service: 01/25/23 Requesting physician: Sundeep Chapin Chief complaint: CHF exacerbation, Afib Narrative: [age] year gentleman who we have been asked to assess for congestive heart failure and atrial fibrillation. It appears he has been admitted to hospital before with congestive heart failure. He is currently on Lasix drip and appears to be significantly volume overloaded. He is saying that he was feeling better but his breathing is worse today. He continues to be in a negative fluid balance. Creatinine is slightly elevated but appears to be significantly volume overloaded 2. He is on digoxin 4 times a week. He is also on metoprolol extended release 3 times a day. Appears to be quite frail and on supplemental oxygen. Recent echocardiography reviewed. Mildly increased right ventricular cavity size with moderate RV dysfunction. FORMERLY [facility], [facility] Past Medical History Medical History Atrial fibrillation with rapid ventricular response Recurrent non-small cell lung cancer Anemia Heart failure with reduced ejection fraction PAD (peripheral artery disease) Wears dentures Congestive heart failure Cancer of upper lobe of right lung (~2013) Neuropathy Physical deconditioning Vitamin D deficiency Osteoarthritis of knees, bilateral Gout Lumbar degenerative disc disease Benign essential hypertension Type 2 diabetes mellitus with other diabetic kidney complication Bilateral lower extremity edema Chronic atrial fibrillation Osteoarthritis Back pain HLD (hyperlipidemia) CAD (coronary artery disease) Smoker COPD (chronic obstructive pulmonary disease) Family History Family History Mother Heart disease Father Heart disease Surgical History Surgical History History of lung biopsy History of bronchoscopy (~2020) History of thoracentesis (~09/2019) History of partial colectomy (~01/2001) History of colonoscopy (~01/2001) History of back surgery History of angioplasty (~12/2020) History of brain surgery (~2003) History of right knee surgery (~09/2005) History of cardiac cath (~02/2016) History of lung surgery (~2019) History of lung surgery (~07/2013) Social History Social History Household Members: None Housing: Condominium Are you a primary care clinician to a significant other at home: No Do you presently have visiting nurse or other home services: Yes Alcohol intake: unknown Patient Tobacco Use Status: Current everyday Tobacco user Tobacco use type: Cigarette Cigarette Packs Per Day: 0.5 Cigarettes Per Day: 10 Years Smoked: 50 Smoked in Last 30 Days: Yes Patient Interested in Nicotine Replacement: Yes Second Hand Smoke Exposure: No Use of substances other than those prescribed or required for medical reasons: No Currently Displaying Signs/Symptoms of Drug Intoxication Withdrawal: No Have you been hit, kicked, punched, or otherwise hurt by someone within the past year? If so, by whom?: No Do you feel safe in your current relationship?: No Current Relationship Is there a partner from a previous relationship who is making you feel unsafe now?: No Are you made to feel afraid or neglected: No Jew Healthcare Practices: Buddhist Advance Directives: Yes Advance Directives on File: Yes Advance Directives Date on File: 10/05/21 Do you have thoughts of harming others: None Do you have a plan to hurt others: No Plan Recently lost weight without trying: No How much weight loss: Not applicable Eating poorly because of decreased appetite: No Nutrition screen score: 0 Nutrition Risks: No Nutritional Risk Poor oral hygiene: No service: No Current occupational status: retired Cognitive needs: Yes (cane) Hearing needs: No Vision needs: Yes Meds Allergies Allergy/AdvReac Type Severity Reaction Status Date / Time No Known Allergies Allergy Unknown UNKNOWN Verified 12/09/22 09:58 [NO KNOWN ALLERGIES] Active Medications: Current Medications Acetaminophen (Acetaminophen 325 Mg Tablet) 650 mg PO Q6H PRN PRN Reason: Pain, Mild (Pain Scale 1-3) Last Admin: 01/23/23 20:30 Dose: 650 mg Albuterol Sulfate (Albuterol Sulfate 90 Mcg 8 Gm Inhaler) 2 puff INHALE Q6H PRN PRN Reason: Shortness Of Breath Or Wheezing Atorvastatin Calcium (Atorvastatin Calcium 40 Mg Tablet) 40 mg PO BEDTIME [facility] Last Admin: 01/23/23 20:26 Dose: 40 mg Digoxin (Digoxin 0.125 Mg Tablet) 0.125 mg PO SUMOWEFR@0900 [facility] Last Admin: 01/24/23 08:12 Dose: 0.125 mg Docusate Sodium (Docusate Sodium 100 Mg Capsule) 100 mg PO DAILY PRN PRN Reason: Constipation Last Admin: 01/24/23 08:17 Dose: 100 mg Enoxaparin Sodium (Enoxaparin Sodium 40 Mg/0.4 Ml Syringe) 40 mg SUBCUT Q24H [facility] Last Admin: 01/23/23 14:18 Dose: 40 mg Ferrous Sulfate (Ferrous Sulfate 324 Mg Tablet.) 324 mg PO DAILY@1500 [facility] Last Admin: 01/23/23 14:19 Dose: 324 mg Folic Acid (Folic Acid 1 Mg Tablet) 1 mg PO DAILY [facility] Last Admin: 01/24/23 08:12 Dose: 1 mg Guaifenesin/Dextromethorphan (Guaifenesin Dm 100/10/5 Ml 5 Ml Syrup) 10 ml PO Q6H PRN PRN Reason: cough Last Admin: 01/23/23 20:30 Dose: 10 ml Levalbuterol HCl (Levalbuterol Hcl 1.25 Mg/3 Ml Vial.Neb) 1.25 mg INHALE Q4H PRN PRN Reason: Shortness of Breath/Wheezing Melatonin (Melatonin 3 Mg Tablet) 6 mg PO BEDTIME PRN PRN Reason: Insomnia Last Admin: 01/24/23 00:33 Dose: 6 mg Metoprolol Succinate (Metoprolol Succinate Er 50 Mg Tab.Er.24h) 50 mg PO TID [facility]; Protocol Last Admin: 01/24/23 08:12 Dose: 50 mg Nicotine (Nicotine 14 Mg Patch.Td24) 14 mg TRANSDERMA DAILY [facility] Last Admin: 01/24/23 08:12 Dose: 14 mg Omeprazole (Omeprazole 20 Mg Capsule.) 20 mg PO BID@0630,1630 [facility] Last Admin: 01/24/23 06:11 Dose: 20 mg Ondansetron HCl (Ondansetron Hcl 4 Mg/2 Ml Vial) 4 mg IVPUSH Q8H PRN PRN Reason: Nausea and Vomiting Polyethylene Glycol (Polyethylene Glycol 3350 17 Gm Powd.Pack) 17 gm PO DAILY PRN PRN Reason: Constipation Sodium Chloride (0.9 % Sodium Chloride Flush 3 Ml Syringe) 3 ml IVFLUSH QSHIFT [facility] Last Admin: 01/24/23 08:14 Dose: Not Given Home Medications Medication Instructions Recorded Confirmed Last Taken Type calcium carbonate 600 mg-vitamin 1 tab PO DAILY 07/10/20 01/22/23 03/16/22 History D3 5 mcg (200 unit) tablet ferrous sulfate 325 mg (65 mg 325 mg PO DAILY@1500 03/17/22 01/22/23 03/16/22 History iron) tablet vit C 250 mg-vit E 90 mg-zinc 40 1 tab PO DAILY 03/17/22 01/22/23 03/16/22 History mg-copper 1 [id number] capsule (PreserVision AREDS-2) albuterol sulfate 90 mcg/actuation 2 puff inhalation Q6H PRN 01/22/23 01/22/23 Unknown History aerosol inhaler Shortness Of Breath Or Wheezing dextromethorphan HBr 15 mg/5 mL 30 mg PO DAILY 01/22/23 01/22/23 Unknown History oral liquid digoxin 125 mcg (0.125 mg) tablet 125 mcg PO SUMOWEFR@0900 01/22/23 01/22/23 Unknown History furosemide 40 mg tablet 60 mg PO DAILY 01/22/23 01/22/23 Unknown History guaifenesin 600 mg tablet, 1,200 mg PO Q12H PRN Cough 01/22/23 01/22/23 Unknown History extended release 12 hr Physical Exam Vital Signs: Vital Signs: Last Vital Signs Temp 97.0 F 01/24/23 11:34 Pulse 52 01/24/23 11:34 Resp 18 01/24/23 11:34 BP 109/65 01/24/23 11:34 Pulse Ox 92 01/24/23 11:34 O2 Del Method Nasal Cannula 01/24/23 11:34 O2 Flow Rate 4 01/24/23 11:34 BMI result Body Mass Index 24.8 GENERAL APPEARANCE: Frail, short of breath on supplemental oxygen. NECK: no carotid bruit, positive jugular venous distention. SKIN: no suspicious lesions, warm and dry. HEART: no murmurs, irregular rate and rhythm. LUNGS: clear to auscultation bilaterally. ABDOMEN: soft, nontender. EXTREMITIES: 2+ edema. PERIPHERAL PULSES: equal. NEUROLOGIC: No gross deficits, AAO X 3 Objective Labs and Meds 01/25/23 06:37 01/25/23 06:37 Lab results: Laboratory Results - last 24 hr 01/24/23 05:43 Hgb 8.5 L Hct 28.1 L Sodium 145 Potassium 4.2 Chloride 102 Carbon Dioxide 35 H Anion Gap 12 BUN 58 H Creatinine 1.56 H Estim Creat Clear Calc 39.3 Estimated GFR 43 Random Glucose 136 H Calcium 8.6 B-Natriuretic Peptide 677 H Assessment and Plan (1) CHF exacerbation: Status: Acute (2) Atrial fibrillation with RVR: Status: Acute Plan [age] gentleman with permanent atrial fibrillation and diastolic heart failure who is here with heart failure at this point. Continues to be volume overloaded by my examination. Continue the Lasix drip. Toprol-XL should not be used 3 times a day it is of once a day to b.i.d. dosing usually. Adjusting her dose to 75 mg b.i.d.. This can be titrated up to 100 b.i.d. if he tolerates. I think he is still volume overloaded and we should continue diuretics with close monitoring of electrolytes. Thank you for allowing me to participate in the care of your patient. Please feel free to contact me if you have any questions. Time Spent With Patient Time: Total time managing care of this patient today ____ minutes. Procedures Date of Service Date of Service: 01/25/23
--- NOTE | 2023-01-24 12:17 | P.PNIM_ITS ---
Subjective Subjective Date of Service: 01/24/23 Interval History: Complaining of worsening shortness of breath and tiredness this morning, denies chest pain, no palpitation, no lightheadedness or dizziness sitting up eating breakfast no nausea no vomiting no abdominal pain no other acute issues overnight tele monitor showed persistent atrial fibrillation with RVR heart rate around 110-120 Review of Systems All other system reviewed and negative Physical Exam 2 Vital Signs: Vital Signs: Last Vital Signs Temp 97.0 F 01/24/23 11:34 Pulse 52 01/24/23 11:34 Resp 18 01/24/23 11:34 BP 109/65 01/24/23 11:34 Pulse Ox 92 01/24/23 11:34 O2 Del Method Nasal Cannula 01/24/23 11:34 O2 Flow Rate 4 01/24/23 11:34 BMI result Body Mass Index 24.8 Const: Other: General:? awake alert x3, in no acute distress Neck + for JVD Resp:? clear to auscultation, coarse breath sound at bases, no crackles, good air movement CVS: S1,S2, tachy irregular , bilateral pitting edema improving GI: +BS, NT, no distention Skin: No rash Neuro:? motor grossly intact Psych: appropriate affect Objective Data Active Medications Acetaminophen (Acetaminophen 325 Mg Tablet) 650 mg PO Q6H PRN PRN Reason: Pain, Mild (Pain Scale 1-3) Last Admin: 01/23/23 20:30 Dose: 650 mg Documented By: RAMIN Albuterol Sulfate (Albuterol Sulfate 90 Mcg 8 Gm Inhaler) 2 puff INHALE Q6H PRN PRN Reason: Shortness Of Breath Or Wheezing Atorvastatin Calcium (Atorvastatin Calcium 40 Mg Tablet) 40 mg PO BEDTIME [facility] Last Admin: 01/23/23 20:26 Dose: 40 mg Documented By: RAMIN Digoxin (Digoxin 0.125 Mg Tablet) 0.125 mg PO SUMOWEFR@0900 [facility] Last Admin: 01/24/23 08:12 Dose: 0.125 mg Documented By: MALIA Docusate Sodium (Docusate Sodium 100 Mg Capsule) 100 mg PO DAILY PRN PRN Reason: Constipation Last Admin: 01/24/23 08:17 Dose: 100 mg Documented By: MALIA Enoxaparin Sodium (Enoxaparin Sodium 40 Mg/0.4 Ml Syringe) 40 mg SUBCUT Q24H [facility] Last Admin: 01/23/23 14:18 Dose: 40 mg Documented By: VAUGHN Ferrous Sulfate (Ferrous Sulfate 324 Mg Tablet.) 324 mg PO DAILY@1500 [facility] Last Admin: 01/23/23 14:19 Dose: 324 mg Documented By: VAUGHN Folic Acid (Folic Acid 1 Mg Tablet) 1 mg PO DAILY [facility] Last Admin: 01/24/23 08:12 Dose: 1 mg Documented By: MALIA Guaifenesin/Dextromethorphan (Guaifenesin Dm 100/10/5 Ml 5 Ml Syrup) 10 ml PO Q6H PRN PRN Reason: cough Last Admin: 01/23/23 20:30 Dose: 10 ml Documented By: RAMIN Furosemide 200 mg/ Sodium (Chloride) 100 mls @ 2.5 mls/hr IVCONT .Q24H [facility] Levalbuterol HCl (Levalbuterol Hcl 1.25 Mg/3 Ml Vial.[place]) 1.25 mg INHALE Q4H PRN PRN Reason: Shortness of Breath/Wheezing Melatonin (Melatonin 3 Mg Tablet) 6 mg PO BEDTIME PRN PRN Reason: Insomnia Last Admin: 01/24/23 00:33 Dose: 6 mg Documented By: OLGA Metoprolol Succinate (Metoprolol Succinate Er 50 Mg Tab.Er.24h) 50 mg PO TID [facility]; Protocol Last Admin: 01/24/23 08:12 Dose: 50 mg Documented By: MALIA Nicotine (Nicotine 14 Mg Patch.Td24) 14 mg TRANSDERMA DAILY [facility] Last Admin: 01/24/23 08:12 Dose: 14 mg Documented By: MALIA Omeprazole (Omeprazole 20 Mg Capsule.) 20 mg PO BID@0630,1630 [facility] Last Admin: 01/24/23 06:11 Dose: 20 mg Documented By: OLGA Ondansetron HCl (Ondansetron Hcl 4 Mg/2 Ml Vial) 4 mg IVPUSH Q8H PRN PRN Reason: Nausea and Vomiting Polyethylene Glycol (Polyethylene Glycol 3350 17 Gm Powd.Pack) 17 gm PO DAILY PRN PRN Reason: Constipation Sodium Chloride (0.9 % Sodium Chloride Flush 3 Ml Syringe) 3 ml IVFLUSH QSHIFT [facility] Last Admin: 01/24/23 08:14 Dose: Not Given Documented By: MALIA Non-Admin Reason: IV Running Labs 01/24/23 05:43 01/24/23 05:43 Labs: Laboratory Results - last 24 hr 01/24/23 05:43 Anion Gap 12 Estim Creat Clear Calc 39.3 Estimated GFR 43 Random Glucose 136 H Calcium 8.6 B-Natriuretic Peptide 677 H Microbiology Microbiology Results: Microbiology 01/22/23 06:38 Blood Culture - Preliminary Blood - Venous No growth after 48 hours. 01/22/23 06:38 Blood Culture - Preliminary Blood - Venous No growth after 48 hours. Assessment and Plan (1) KISHAN (acute kidney injury): Status: Acute (2) Lung mass: Status: Acute (3) CHF exacerbation: Status: Acute Plan 82-year-old male with a PMH significant for?severe COPD, recurrent metastatic lung cancer s/p right lobectomy, HFpEF, chronic AFib, HLD, PAD, and hx of gastritis who presents to the ED from [facility] with increasing shortness of breath and hypoxia. Pt will be admitted to the hospital for acute hypoxic respiratory failure in the setting of CHF exacerbation likely secondary to medication noncompliance. Acute hypoxic respiratory failure in the setting of HFpEF exacerbation, CHF exacerbated likely multifactorial by AFib and RVR and right-sided heart failure, pulmonary hypertension s/p BiPAP treatment in ED and then weaned to OxyMask 6 L, clinically appears better but complaining of worsening shortness of breath, now on nasal cannula finger oximetry 96%, will continue IV Lasix drip >4 L negative since admission, continue ch Schmidt catheter BNP trending down close to baseline Know this is Daily weights, low-salt diet echocardiogram last admission on 12/30/2022 showed EF 55-60% moderately decreased right ventricular systolic function with elevated right atrial pressures, moderate pulmonary hypertension and indeterminate diastolic function wean O2 , not on home oxygen. Acute COPD exacerbation resolved on Xopenex d/t tachycardia, s/p iv Solu-Medrol Continue home inhalers Monitor respiratory status, being out to KISHAN Patient's creatinine bumped to 1.5, elevated above baseline of 0.90, avoid nephrotoxins Likely cardiorenal continue IV diuretics , monitor renal function closely while being diuresed Persist AFib with RVR continue metoprolol XL 50 mg t.i.d. and digoxin, Coumadin on hold due to recent drop in H&H requiring 2 units of packed RBC on 12/30/2022, will discuss with Cardiology regarding continued Coumadin therapy with history of GI bleed, patient Coumadin on hold for last 2 weeks, since was admitted 2 weeks ago due to acute anemia without active bleeding, consulted Cardiology for medication adjustment due to persistent tachycardia Abnormal CXR findings CXR found new nodular density in the lateral mid to upper right lung may reflect fissural fluid verses a new 3.6 cm mass, Patient with history of recurrent metastatic lung cancer recommend follow up outpatient with Oncology, inform daughter about chest x-ray findings chronic anemia with Hx of gastritis stable hematocrit. Continue omeprazole 20 mg b.i.d. for another 2 weeks, switch to omeprazole 20 mg daily on 02/08/2023, per GI, follow CBC status post colonoscopy and upper endoscopy July 2021 was normal, status post video capsule study this revealed melenic type fluid and bleeding probably in the ileum in apr 2022 Full Code DVT Prophylaxis: Lovenox for now, Pt. will require continued inpatient hospitalization for treatment of?acute hypoxic respiratory failure in the setting CHF Patient will need treatment with IV Lasix, supplemental O2, breathing treatments, and close monitoring.. Time Spent With Patient Time: Total time managing care of this patient today ____ minutes. Quality Stroke Does the patient have a stroke diagnosis?: No VTE Prior VTE?: No VTE Risk Level:: Medical - moderate - high VTE Device Contraindication: Treatment Not Indicated VTE Drug Contraindication: N/A - Med Ordered
[2023-01-24] MEDS: Furosemide 200 MG in 0.9 % Sodium Chloride 80 ML IVCONT (13:40)
[2023-01-24] MEDS: Enoxaparin Sodium 40 MG/0.4 ML SYRINGE SUBCUT (15:26)
[2023-01-24] MEDS: Ferrous Sulfate 324 MG TABLET.DR PO (15:26)
[2023-01-24] MEDS: Atorvastatin Calcium 40 MG TABLET PO (21:10)
[2023-01-24] MEDS: 0.9 % Sodium Chloride Flush 3 ML SYRINGE IVFLUSH (21:11)
[2023-01-24] MEDS: Acetaminophen 325 MG TABLET 650 MG PO (21:17)
[2023-01-24] MEDS: guaiFENesin DM 100/10/5 ML 5 ML SYRUP 10 ML PO (21:17)
[2023-01-24] MEDS: levalbuterol HCL 1.25 MG/3 ML VIAL.NEB INHALE (22:51)
[2023-01-25 03:19] VITALS: BP 139/85; PULSE 127; RESP 18; TEMP 36.6; O2SAT 95
[2023-01-25] MEDS: Magnesium Sulfate/H2O 2 GM/50 ML PIGGYBACK IV (05:00)
[2023-01-25] MEDS: Omeprazole 20 MG CAPSULE.DR PO ×2 (05:08→15:47)
[2023-01-25 06:00] VITALS: BMI 24.5
[2023-01-25 07:14] LABS: Hematocrit 30.7 % (42.0-52.0); Mean Corpuscular HGB Conc 29.3 g/dl (31.0-36.0); Mean Corpuscular Hemoglobin 30.8 pg (27.0-33.0); Mean Corpuscular Volume 105.1 fL (80.0-98.0); Mean Platelet Volume 11.3 fL (9.4-12.4); Platelet Count 192 X10*3/uL (160-400); Red Blood Count 2.92 X10*6/uL (4.60-5.80); Red Cell Distribution Width 17.6 % (11.0-16.0); White Blood Count 4.9 X10*3/uL (4.8-10.8)
[2023-01-25 07:21] VITALS: BP 127/61; PULSE 98; RESP 22; TEMP 36.7; O2SAT 94
[2023-01-25 07:32] LABS: Anion Gap 17 (12-20); Blood Urea Nitrogen 58 mg/dL (9-16); Calcium 8.5 mg/dL (8.4-10.2); Carbon Dioxide 33 mmol/L (22-29); Chloride 100 mmol/L (96-108); Creatinine Clr Calc Pharmacy 39.1; Estimated Glomerular Filt Rate 42; Glucose Random 112 mg/dL (60-115); Potassium 4.1 mmol/L (3.3-5.1); Sodium 146 mmol/L (135-145)
[2023-01-25] MEDS: Folic Acid 1 MG TABLET PO (07:52)
[2023-01-25] MEDS: Metoprolol Succinate ER 50 MG TAB.ER.24H PO (07:52)
[2023-01-25] MEDS: Nicotine 14 MG PATCH.TD24 TRANSDERMA (07:52)
[2023-01-25] MEDS: 0.9 % Sodium Chloride Flush 3 ML SYRINGE IVFLUSH ×2 (07:54→15:47)
--- NOTE | 2023-01-25 11:28 | PM.PNCARD ---
Subjective Subjective Date of Service: 01/25/23 Interval history: Seen examined at bedside. He is complaining of more shortness of breath today. On a face mask currently. Still has elevated JVD and significant peripheral edema. On Lasix drip. Physical Exam Vital Signs: Last Vital Signs Temp 98.1 F 01/25/23 07:21 Pulse 98 01/25/23 07:21 Resp 22 H 01/25/23 07:21 BP 127/61 01/25/23 07:21 Pulse Ox 94 01/25/23 07:21 O2 Del Method Oxymask 01/25/23 07:21 O2 Flow Rate 4 01/25/23 07:21 BMI result Body Mass Index 24.5 GENERAL APPEARANCE: Frail, short of breath on supplemental oxygen. NECK: no carotid bruit, positive jugular venous distention. SKIN: no suspicious lesions, warm and dry. HEART: no murmurs, irregular rate and rhythm. LUNGS: clear to auscultation bilaterally. ABDOMEN: soft, nontender. EXTREMITIES: 2+ edema. PERIPHERAL PULSES: equal. NEUROLOGIC: No gross deficits, AAO X 3 Objective Labs and Meds 01/25/23 06:37 01/25/23 06:37 Lab results: Laboratory Results - last 24 hr 01/25/23 06:37 WBC 4.9 RBC 2.92 L Hgb 9.0 L Hct 30.7 L MCV 105.1 H MCH 30.8 MCHC 29.3 L RDW 17.6 H Plt Count 192 MPV 11.3 Absolute Nucleated RBC 0.000 Nucleated RBC % (auto) 0.0 Sodium 146 H Potassium 4.1 Chloride 100 Carbon Dioxide 33 H Anion Gap 17 BUN 58 H Creatinine 1.57 H Estim Creat Clear Calc 39.1 Estimated GFR 42 Random Glucose 112 Calcium 8.5 Progress Note: A&P Assessment and plan (1) CHF exacerbation: Status: Acute (2) Atrial fibrillation with RVR: Status: Acute Plan 82-year-old gentleman with permanent atrial fibrillation and diastolic heart failure. He has been inactive balance but continues to complain of more shortness of breath. He also has upper airway gurgling which is a risk for aspiration and pneumonia. I think he should have a chest x-ray today. Continue diurese because he still is volume overloaded. Heart rates are in low 100s. Continue digoxin and Toprol-XL b.i.d.. The dosing should not be changed to t.i.d.. If he tolerates this then Toprol can be increased to 100 mg twice a day. My concern is that he has some other process going on because we are diuresing him and he is complaining of more shortness of breath. Thank you for allowing me to participate in the care of your patient. Please feel free to contact me if you have any questions. Time Spent With Patient Time: Total time managing care of this patient today ____ minutes. Progress Note: Quality Stroke Does the patient have a stroke diagnosis?: No Procedures Date of Service Date of Service: 01/25/23
[2023-01-25 11:30] VITALS: BP 124/67; PULSE 99; RESP 24; TEMP 37; O2SAT 93
--- NOTE | 2023-01-25 12:11 | HO.PM.IMPN ---
Subjective Subjective Date of Service: 01/25/23 Interval History: seen and examined this morning follow up for CHF, afib still reporting shortness of breath, not feeling much better no fever, chills Review of Systems Review of Systems: Yes all other systems are reviewed and are negative Constitutional Constitutional: Denies chills and Denies fever(s) Cardiovascular Cardiovascular: Denies chest pain and Reports dyspnea Respiratory Respiratory: Reports cough and Reports dyspnea Gastrointestinal Gastrointestinal: Denies abdominal pain Physical Exam Vital Signs: Vital Signs: Last Vital Signs Temp 98.6 F 01/25/23 11:30 Pulse 99 01/25/23 11:30 Resp 24 H 01/25/23 11:30 BP 124/67 01/25/23 11:30 Pulse Ox 93 01/25/23 11:30 O2 Del Method Oxymask 01/25/23 11:30 O2 Flow Rate 2 01/25/23 11:30 BMI result Body Mass Index 24.5 Const: Other: thin, chronically ill appearing General: comfortable, alert and awake Orientation/consciousness: patient oriented x3 Resp: Effort & Inspection: no respiratory distress and no use of accessory muscles Auscultation: clear to auscultation bilaterally Cardio: Rate: regular rate GI: Inspection: No distended Palpation (GI): Soft to palpation and nontender Neuro: Other: grossly nonfocal General: patient oriented x3 and moves all extremities Extrem: Other: 2+ edema b/l legs Objective Data Active Medications Acetaminophen (Acetaminophen 325 Mg Tablet) 650 mg PO Q6H PRN PRN Reason: Pain, Mild (Pain Scale 1-3) Last Admin: 01/24/23 21:17 Dose: 650 mg Documented By: LESTER Albuterol Sulfate (Albuterol Sulfate 90 Mcg 8 Gm Inhaler) 2 puff INHALE Q6H PRN PRN Reason: Shortness Of Breath Or Wheezing Atorvastatin Calcium (Atorvastatin Calcium 40 Mg Tablet) 40 mg PO BEDTIME [facility] Last Admin: 01/24/23 21:10 Dose: 40 mg Documented By: LESTER Digoxin (Digoxin 0.125 Mg Tablet) 0.125 mg PO SUMOWEFR@0900 [facility] Last Admin: 01/24/23 08:12 Dose: 0.125 mg Documented By: MALIA Docusate Sodium (Docusate Sodium 100 Mg Capsule) 100 mg PO DAILY PRN PRN Reason: Constipation Last Admin: 01/24/23 08:17 Dose: 100 mg Documented By: MALIA Enoxaparin Sodium (Enoxaparin Sodium 40 Mg/0.4 Ml Syringe) 40 mg SUBCUT Q24H [facility] Last Admin: 01/24/23 15:26 Dose: 40 mg Documented By: MALIA Ferrous Sulfate (Ferrous Sulfate 324 Mg Tablet.) 324 mg PO DAILY@1500 [facility] Last Admin: 01/24/23 15:26 Dose: 324 mg Documented By: MALIA Folic Acid (Folic Acid 1 Mg Tablet) 1 mg PO DAILY [facility] Last Admin: 01/25/23 07:52 Dose: 1 mg Documented By: JANICE Guaifenesin/Dextromethorphan (Guaifenesin Dm 100/10/5 Ml 5 Ml Syrup) 10 ml PO Q6H PRN PRN Reason: cough Last Admin: 01/24/23 21:17 Dose: 10 ml Documented By: LESTER Furosemide 200 mg/ Sodium (Chloride) 100 mls @ 2.5 mls/hr IVCONT .Q24H [facility] Last Admin: 01/24/23 13:40 Dose: 5 mg/hr, 2.5 mls/hr Documented By: LESSARMya Levalbuterol HCl (Levalbuterol Hcl 1.25 Mg/3 Ml Vial.[place]) 1.25 mg INHALE Q4H PRN PRN Reason: Shortness of Breath/Wheezing Last Admin: 01/24/23 22:51 Dose: 1.25 mg Documented By: PARDEEP Melatonin (Melatonin 3 Mg Tablet) 6 mg PO BEDTIME PRN PRN Reason: Insomnia Last Admin: 01/24/23 00:33 Dose: 6 mg Documented By: OLGA Metoprolol Succinate (Metoprolol Succinate Er 25 Mg Tab.Er.24h) 75 mg PO BID [facility]; Protocol Nicotine (Nicotine 14 Mg Patch.Td24) 14 mg TRANSDERMA DAILY [facility] Last Admin: 01/25/23 07:52 Dose: 14 mg Documented By: JANICE Omeprazole (Omeprazole 20 Mg Capsule.) 20 mg PO BID@0630,1630 [facility] Last Admin: 01/25/23 05:08 Dose: 20 mg Documented By: LESTER Ondansetron HCl (Ondansetron Hcl 4 Mg/2 Ml Vial) 4 mg IVPUSH Q8H PRN PRN Reason: Nausea and Vomiting Polyethylene Glycol (Polyethylene Glycol 3350 17 Gm Powd.Pack) 17 gm PO DAILY PRN PRN Reason: Constipation Sodium Chloride (0.9 % Sodium Chloride Flush 3 Ml Syringe) 3 ml IVFLUSH QSHIFT RAD[facility] Last Admin: 01/25/23 07:54 Dose: 3 ml Documented By: JANICE Labs 01/25/23 06:37 01/25/23 06:37 Labs: Laboratory Results - last 24 hr 01/25/23 06:37 MCV 105.1 H MCH 30.8 MCHC 29.3 L RDW 17.6 H Plt Count 192 MPV 11.3 Absolute Nucleated RBC 0.000 Nucleated RBC % (auto) 0.0 Anion Gap 17 Estim Creat Clear Calc 39.1 Estimated GFR 42 Random Glucose 112 Calcium 8.5 Microbiology Microbiology Results: Microbiology 01/22/23 06:38 Blood Culture - Preliminary Blood - Venous No growth after 48 hours. 01/22/23 06:38 Blood Culture - Preliminary Blood - Venous No growth after 48 hours. Assessment and Plan (1) CHF exacerbation: Status: Acute Plan 82-year-old male with a PMH significant for?severe COPD, recurrent metastatic lung cancer s/p right lobectomy, HFpEF, chronic AFib, HLD, PAD, and hx of gastritis who presents to the ED from [facility] with increasing shortness of breath and hypoxia. Acute hypoxic respiratory failure related to acute on chronic HFpEF s/p BiPAP in ED down to 2L oxymask but complaining of worsening shortness of breath continue IV Lasix drip >6 L negative since admission, Schmidt in place for accurate I/O BNP trending down close to baseline Daily weights, low-salt diet echocardiogram 12/30/2022 showed EF 55-60% moderately decreased right ventricular systolic function with elevated right atrial pressures, moderate pulmonary hypertension and indeterminate diastolic function wean O2 as tolerated, not on home oxygen given persistent sob despite good diuresis - will repeat chest xray cardiology following Persistent AFib with RVR dose of Toprol Xl changed to 75 bid continue digoxin Coumadin on hold due to recent drop in H&H requiring 2 units of packed RBC on 12/30/2022 - Coumadin has been on hold for last 2 weeks, H/H stable, will resume; follow INR daily cardiology following Acute COPD exacerbation, resolved on Xopenex d/t tachycardia, s/p iv Solu-Medrol Continue home inhalers Monitor respiratory status KISHAN Patient's creatinine bumped to 1.5, elevated above baseline of 0.90, avoid nephrotoxins Likely cardiorenal continue IV diuretics , monitor renal function closely while being diuresed Abnormal CXR findings CXR found new nodular density in the lateral mid to upper right lung may reflect fissural fluid verses a new 3.6 cm mass, Patient with history of recurrent metastatic lung cancer recommend follow up outpatient with Oncology, inform daughter about chest x-ray findings chronic anemia with Hx of gastritis stable hematocrit. Continue omeprazole 20 mg b.i.d. for another 2 weeks, switch to omeprazole 20 mg daily on 02/08/2023, per GI status post colonoscopy and upper endoscopy July 2021 was normal, status post video capsule study this revealed melenic type fluid and bleeding probably in the ileum in apr 2022 Full Code DVT Prophylaxis: on Lovenox currently - will transition to coumadin , Requires continued inpatient hospitalization for treatment of?acute hypoxic respiratory failure,CHF requiring IV Lasix, supplemental O2, breathing treatments, and close monitoring of respiratory status Time Spent With Patient Time: Total time managing care of this patient today ____ minutes. Quality Stroke Does the patient have a stroke diagnosis?: No VTE Prior VTE?: No VTE Risk Level:: Medical - moderate - high VTE Device Contraindication: Treatment Not Indicated VTE Drug Contraindication: N/A - Med Ordered
[2023-01-25] MEDS: Furosemide 200 MG in 0.9 % Sodium Chloride 80 ML IVCONT (12:52)
[2023-01-25 14:27] LABS: INTERNATIONAL NORM RATIO 1.1 (0.9-1.1); Prothrombin Time 12.8 SEC (11.1-13.3)
[2023-01-25 14:56] LABS: OBS Int Ctl Valid YES; OBS1 NEGATIVE (NEGATIVE)
[2023-01-25 15:03] VITALS: BP 118/62; PULSE 84; RESP 20; TEMP 37.1; O2SAT 96
[2023-01-25] MEDS: Ferrous Sulfate 324 MG TABLET.DR PO (15:47)
[2023-01-25] MEDS: cefTRIAXone sodium 1 GM in 0.9 % Sodium Chloride 50 ML IV (18:29)
[2023-01-25] MEDS: Warfarin Sodium 1 MG TABLET PO (18:29)
[2023-01-25 18:51] VITALS: BP 126/68; PULSE 101; RESP 20; TEMP 36.9; O2SAT 93
[2023-01-25] MEDS: Doxycycline Monohydrate 100 MG CAPSULE PO (20:12)
[2023-01-25] MEDS: Atorvastatin Calcium 40 MG TABLET PO (20:12)
[2023-01-25] MEDS: Metoprolol Succinate ER 25 MG TAB.ER.24H 75 MG PO (20:12)
[2023-01-25] MEDS: guaiFENesin DM 100/10/5 ML 5 ML SYRUP 10 ML PO (22:19)
[2023-01-25] MEDS: levalbuterol HCL 1.25 MG/3 ML VIAL.NEB INHALE (22:42)
[2023-01-25 22:44] VITALS: PULSE 102; RESP 20; O2SAT 97
[2023-01-26] VITALS: BP 133/63; PULSE 99; RESP 20; TEMP 36.7; O2SAT 94
[2023-01-26 03:22] VITALS: BP 96/64; PULSE 78; RESP 20; TEMP 36.4; O2SAT 95
[2023-01-26] MEDS: Omeprazole 20 MG CAPSULE.DR PO ×2 (05:53→17:22)
[2023-01-26 06:00] VITALS: BMI 24.5
[2023-01-26 07:26] VITALS: BP 142/68; PULSE 103; RESP 20; TEMP 36.6; O2SAT 93
[2023-01-26] MEDS: Folic Acid 1 MG TABLET PO (07:47)
[2023-01-26] MEDS: Metoprolol Succinate ER 25 MG TAB.ER.24H 75 MG PO (07:48)
[2023-01-26] MEDS: Digoxin 0.125 MG TABLET PO (07:49)
[2023-01-26] MEDS: Doxycycline Monohydrate 100 MG CAPSULE PO ×2 (07:49→21:03)
[2023-01-26] MEDS: Nicotine 14 MG PATCH.TD24 TRANSDERMA (07:50)
[2023-01-26] MEDS: 0.9 % Sodium Chloride Flush 3 ML SYRINGE IVFLUSH ×3 (07:50→23:34)
[2023-01-26 08:23] LABS: Hematocrit 30.5 % (42.0-52.0); Hemoglobin 8.9 g/dl (14.0-18.0); Mean Corpuscular HGB Conc 29.2 g/dl (31.0-36.0); Mean Corpuscular Hemoglobin 30.8 pg (27.0-33.0); Mean Corpuscular Volume 105.5 fL (80.0-98.0); Mean Platelet Volume 11.6 fL (9.4-12.4); Platelet Count 185 X10*3/uL (160-400); Red Blood Count 2.89 X10*6/uL (4.60-5.80); Red Cell Distribution Width 17.3 % (11.0-16.0); White Blood Count 5.4 X10*3/uL (4.8-10.8)
[2023-01-26 08:24] LABS: INTERNATIONAL NORM RATIO 1.1 (0.9-1.1); Prothrombin Time 13.1 SEC (11.1-13.3)
[2023-01-26 08:52] LABS: Anion Gap 15 (12-20); Blood Urea Nitrogen 50 mg/dL (9-16); Calcium 8.6 mg/dL (8.4-10.2); Carbon Dioxide 40 mmol/L (22-29); Chloride 96 mmol/L (96-108); Creatinine Clr Calc Pharmacy 44.1; Estimated Glomerular Filt Rate 49; Glucose Random 127 mg/dL (60-115); Potassium 3.6 mmol/L (3.3-5.1); Sodium 147 mmol/L (135-145)
[2023-01-26 11:13] VITALS: BP 137/74; PULSE 120; RESP 20; TEMP 36.6; O2SAT 92
--- NOTE | 2023-01-26 12:11 | PM.PNCARD ---
Subjective Subjective Date of Service: 01/26/23 Interval history: Seen examined at bedside. On antibiotics now for potential pneumonia. He is saying he is feeling better. Still looks overloaded. Creatinine is improving with diuretics. Physical Exam Vital Signs: Last Vital Signs Temp 97.8 F 01/26/23 11:13 Pulse 120 H 01/26/23 11:13 Resp 20 01/26/23 11:13 BP 137/74 01/26/23 11:13 Pulse Ox 92 01/26/23 11:13 O2 Del Method Oxymask 01/26/23 11:13 O2 Flow Rate 3 01/26/23 11:13 BMI result Body Mass Index 24.5 GENERAL APPEARANCE: Frail, short of breath on supplemental oxygen. Upper airway gurgling/secretions. NECK: no carotid bruit, positive jugular venous distention. SKIN: no suspicious lesions, warm and dry. HEART: no murmurs, irregular rate and rhythm. LUNGS: clear to auscultation bilaterally. ABDOMEN: soft, nontender. EXTREMITIES: + edema. PERIPHERAL PULSES: equal. NEUROLOGIC: No gross deficits, AAO X 3 Objective Labs and Meds 01/26/23 07:37 01/26/23 07:37 Lab results: Laboratory Results - last 24 hr 01/25/23 01/25/23 01/25/23 13:50 13:55 18:30 WBC RBC Hgb Hct MCV MCH MCHC RDW Plt Count MPV Absolute Nucleated RBC Nucleated RBC % (auto) Hold Purple Top PT 12.8 INR 1.1 Sodium Potassium Chloride Carbon Dioxide Anion Gap BUN Creatinine Estim Creat Clear Calc Estimated GFR Random Glucose Calcium Hold Green Top See Note Stool Occult Blood NEGATIVE 01/25/23 01/26/23 Unknown 07:37 WBC 5.4 RBC 2.89 L Hgb 8.9 L Hct 30.5 L MCV 105.5 H MCH 30.8 MCHC 29.2 L RDW 17.3 H Plt Count 185 MPV 11.6 Absolute Nucleated RBC 0.000 Nucleated RBC % (auto) 0.0 Hold Purple Top SEE NOTE PT 13.1 INR 1.1 Sodium 147 H Potassium 3.6 Chloride 96 Carbon Dioxide 40 H* D Anion Gap 15 BUN 50 H Creatinine 1.39 Estim Creat Clear Calc 44.1 Estimated GFR 49 Random Glucose 127 H Calcium 8.6 Hold Green Top Stool Occult Blood Imaging Radiologist's impression: Impressions Chest X-Ray 01/25/23 12:16 IMPRESSION: 1. Stable appearance of right upper lobe radiodensity/mass with overlying surgical material measuring up to 7.9 cm. 2. Stable nodular focus in the lateral mid lung field measuring 3.6 cm. 3. Slightly increased right basilar opacity. 4. Trace bilateral pleural effusions with subjacent atelectasis. 5. Cardiac mediastinal silhouette is enlarged. 6. Partially visualized sclerotic focus in the left proximal humerus possibly representing a bone infarct or enchondroma. Progress Note: A&P Assessment and plan (1) Atrial fibrillation with RVR: Status: Acute (2) CHF exacerbation: Status: Acute Plan [age] gentleman is presenting for chronic heart failure and permanent atrial fibrillation. He is significantly volume overloaded and has been on Lasix drip. He still has elevated JVD and interestingly his creatinine is improving after diuretics which is pointing towards improving forward flow. He was not feeling well over the last 2 days which led to chest x-ray showing some concern for infection and he is on antibiotics. He is saying he is feeling little better today. I think we continue the IV diuretics at this point. He is on Toprol-XL and digoxin. His digoxin level was okay previously. Toprol-XL can be increased to 100 mg twice a day. Target heart rates are below 110 at rest. Infection also may play a role in tachycardia. He has upper airway gurgling and secretion which is a risk factor for aspiration and this is possible that the pneumonia happen due to that. Thank you for allowing me to participate in the care of your patient. Please feel free to contact me if you have any questions. Time Spent With Patient Time: Total time managing care of this patient today ____ minutes. Progress Note: Quality Stroke Does the patient have a stroke diagnosis?: No Procedures Date of Service Date of Service: 01/26/23
--- NOTE | 2023-01-26 12:50 | P.PNIM_ITS ---
Subjective Subjective Date of Service: 01/26/23 Interval History: seen and examined this morning follow up for CHF, afib, pneumonia feeling sob although a little better this morning, having productive cough Review of Systems All other system reviewed and negative Review of Systems: Yes all other systems are reviewed and are negative Constitutional Constitutional: Denies chills and Denies fever(s) Cardiovascular Cardiovascular: Denies chest pain, Denies palpitations and Reports dyspnea Respiratory Respiratory: Reports cough and Reports dyspnea Gastrointestinal Gastrointestinal: Denies abdominal pain Endocrine Endocrine: Denies palpitations Physical Exam 2 Vital Signs: Vital Signs: Last Vital Signs Temp 97.8 F 01/26/23 11:13 Pulse 120 H 01/26/23 11:13 Resp 20 01/26/23 11:13 BP 137/74 01/26/23 11:13 Pulse Ox 92 01/26/23 11:13 O2 Del Method Oxymask 01/26/23 11:13 O2 Flow Rate 3 01/26/23 11:13 BMI result Body Mass Index 24.5 Const: Other: thin, chronically ill appearing General: comfortable, alert and awake Orientation/consciousness: patient oriented x3 Resp: Other: rhonchi b/l Effort & Inspection: no respiratory distress and no use of accessory muscles Auscultation: clear to auscultation bilaterally Cardio: Jugular venous distension: JVD Rate: regular rate GI: Inspection: No distended Palpation (GI): Soft to palpation and nontender Neuro: Other: grossly nonfocal General: patient oriented x3 and moves all extremities Extrem: Other: 2+ edema b/l legs - improving Objective Data Active Medications Acetaminophen (Acetaminophen 325 Mg Tablet) 650 mg PO Q6H PRN PRN Reason: Pain, Mild (Pain Scale 1-3) Last Admin: 01/24/23 21:17 Dose: 650 mg Documented By: LESTER Acetazolamide (Acetazolamide Sodium 500 Mg Vial) 250 mg IVPUSH ONCE ONE Stop: 01/26/23 12:49 Albuterol Sulfate (Albuterol Sulfate 90 Mcg 8 Gm Inhaler) 2 puff INHALE Q6H PRN PRN Reason: Shortness Of Breath Or Wheezing Atorvastatin Calcium (Atorvastatin Calcium 40 Mg Tablet) 40 mg PO BEDTIME [facility] Last Admin: 01/25/23 20:12 Dose: 40 mg Documented By: RODRIGO Digoxin (Digoxin 0.125 Mg Tablet) 0.125 mg PO SUMOWEFR@0900 [facility] Last Admin: 01/26/23 07:49 Dose: 0.125 mg Documented By: JANICE Docusate Sodium (Docusate Sodium 100 Mg Capsule) 100 mg PO DAILY PRN PRN Reason: Constipation Last Admin: 01/24/23 08:17 Dose: 100 mg Documented By: MALIA Doxycycline Monohydrate (Doxycycline Monohydrate 100 Mg Capsule) 100 mg PO BID [facility] Last Admin: 01/26/23 07:49 Dose: 100 mg Documented By: JANICE Ferrous Sulfate (Ferrous Sulfate 324 Mg Tablet.) 324 mg PO DAILY@1500 [facility] Last Admin: 01/25/23 15:47 Dose: 324 mg Documented By: JANICE Folic Acid (Folic Acid 1 Mg Tablet) 1 mg PO DAILY [facility] Last Admin: 01/26/23 07:47 Dose: 1 mg Documented By: JANICE Guaifenesin (Guaifenesin La 600 Mg Tab.Er.12h) 600 mg PO BID [facility] Guaifenesin/Dextromethorphan (Guaifenesin Dm 100/10/5 Ml 5 Ml Syrup) 10 ml PO Q6H PRN PRN Reason: cough Last Admin: 01/25/23 22:19 Dose: 10 ml Documented By: RODRIGO Furosemide 200 mg/ Sodium (Chloride) 100 mls @ 2.5 mls/hr IVCONT .Q24H [facility] Last Admin: 01/25/23 12:52 Dose: 5 mg/hr, 2.5 mls/hr Documented By: JANICE Ceftriaxone Sodium 1 gm/ (Sodium Chloride) 50 mls @ 100 mls/hr IV Q24H [facility] Last Infusion: 01/25/23 19:23 Dose: Infused Documented By: RODRIGO Levalbuterol HCl (Levalbuterol Hcl 1.25 Mg/3 Ml Vial.Neb) 1.25 mg INHALE Q4H PRN PRN Reason: Shortness of Breath/Wheezing Last Admin: 01/25/23 22:42 Dose: 1.25 mg Documented By: PARDEEP Melatonin (Melatonin 3 Mg Tablet) 6 mg PO BEDTIME PRN PRN Reason: Insomnia Last Admin: 01/24/23 00:33 Dose: 6 mg Documented By: OLGA Metoprolol Succinate (Metoprolol Succinate Er 25 Mg Tab.Er.24h) 75 mg PO BID [facility]; Protocol Last Admin: 01/26/23 07:48 Dose: 75 mg Documented By: JANICE Nicotine (Nicotine 14 Mg Patch.Td24) 14 mg TRANSDERMA DAILY [facility] Last Admin: 01/26/23 07:50 Dose: 14 mg Documented By: JANICE Omeprazole (Omeprazole 20 Mg Capsule.Dr) 20 mg PO BID@0630,1630 [facility] Last Admin: 01/26/23 05:53 Dose: 20 mg Documented By: JACK Ondansetron HCl (Ondansetron Hcl 4 Mg/2 Ml Vial) 4 mg IVPUSH Q8H PRN PRN Reason: Nausea and Vomiting Polyethylene Glycol (Polyethylene Glycol 3350 17 Gm Powd.Pack) 17 gm PO DAILY PRN PRN Reason: Constipation Sodium Chloride (0.9 % Sodium Chloride Flush 3 Ml Syringe) 3 ml IVFLUSH QSHIFT [facility] Last Admin: 01/26/23 07:50 Dose: 3 ml Documented By: JANICE Warfarin Sodium (Warfarin Sodium 1 Mg Tablet) 1 mg PO SUMOTUWEFRSA@1800 [facility] Last Admin: 01/25/23 18:29 Dose: 1 mg Documented By: JANICE Warfarin Sodium (Warfarin Sodium 2 Mg Tablet) 2 mg PO TH@1800 [facility] Labs 01/26/23 07:37 01/26/23 07:37 Labs: Laboratory Results - last 24 hr 01/25/23 01/25/23 01/25/23 13:50 13:55 18:30 MCV MCH MCHC RDW Plt Count MPV Absolute Nucleated RBC Nucleated RBC % (auto) Hold Purple Top PT 12.8 INR 1.1 Anion Gap Estim Creat Clear Calc Estimated GFR Random Glucose Calcium Hold Green Top See Note Stool Occult Blood NEGATIVE 01/25/23 01/26/23 Unknown 07:37 MCV 105.5 H MCH 30.8 MCHC 29.2 L RDW 17.3 H Plt Count 185 MPV 11.6 Absolute Nucleated RBC 0.000 Nucleated RBC % (auto) 0.0 Hold Purple Top SEE NOTE PT 13.1 INR 1.1 Anion Gap 15 Estim Creat Clear Calc 44.1 Estimated GFR 49 Random Glucose 127 H Calcium 8.6 Hold Green Top Stool Occult Blood Assessment and Plan (1) KISHAN (acute kidney injury): Status: Acute (2) Pneumonia: Status: Acute (3) CHF exacerbation: Status: Acute (4) Atrial fibrillation with RVR: Status: Acute (5) Acute respiratory failure with hypoxia: Status: Acute Plan 82-year-old male with a PMH significant for?severe COPD, recurrent metastatic lung cancer s/p right lobectomy, HFpEF, chronic AFib, HLD, PAD, and hx of gastritis who presents to the ED from [facility] with increasing shortness of breath and hypoxia. Acute hypoxic respiratory failure related to acute on chronic HFpEF and pneumonia s/p BiPAP in ED down to 3L oxymask continue IV Lasix drip negative 19 L since admission, Schmidt in place for accurate I/O BNP trending down close to baseline Daily weights, low-salt diet echocardiogram 12/30/2022 showed EF 55-60% moderately decreased right ventricular systolic function with elevated right atrial pressures, moderate pulmonary hypertension and indeterminate diastolic function wean O2 as tolerated, not on home oxygen given persistent sob despite good diuresis -chest xray was repeated and showed evidence of pneumonia bicarb trending up will give one dose of diamox cardiology following Pneumonia started on ceftriaxone, doxycycline 01/25 no sepsis, tachycardia r/t atrial fibrillation blood cultures pending speech eval pending to eval for possible aspiration Persistent AFib with RVR dose of Toprol Xl increased to 100 bid continue digoxin Coumadin initially on hold due to recent drop in H&H requiring 2 units of packed RBC on 12/30/2022 - Coumadin has been on hold for last 2 weeks, H/H stable so coumadin resumed; follow INR daily cardiology following Acute COPD exacerbation, resolved on Xopenex d/t tachycardia, s/p iv Solu-Medrol Continue home inhalers Monitor respiratory status KISHAN Patient's creatinine bumped to 1.5, elevated above baseline of 0.90 Likely cardiorenal, creatinine now trending down to 1.3 follow renal function Abnormal CXR findings CXR found new nodular density in the lateral mid to upper right lung may reflect fissural fluid verses a new 3.6 cm mass, Patient with history of recurrent metastatic lung cancer recommend follow up outpatient with Oncology, inform daughter about chest x-ray findings chronic anemia with Hx of gastritis H/H stable Continue omeprazole 20 mg b.i.d. for another 2 weeks, switch to omeprazole 20 mg daily on 02/08/2023, per GI status post colonoscopy and upper endoscopy July 2021 was normal, status post video capsule study this revealed melenic type fluid and bleeding probably in the ileum in apr 2022 Full Code DVT Prophylaxis: coumadin , Requires continued inpatient hospitalization for treatment of?acute hypoxic respiratory failure,CHF requiring IV Lasix, supplemental O2, breathing treatments, and close monitoring of respiratory status Time Spent With Patient Time: Total time managing care of this patient today ____ minutes. Quality Stroke Does the patient have a stroke diagnosis?: No VTE Prior VTE?: No VTE Risk Level:: Medical - moderate - high VTE Device Contraindication: Treatment Not Indicated VTE Drug Contraindication: N/A - Med Ordered
[2023-01-26] MEDS: Furosemide 200 MG in 0.9 % Sodium Chloride 80 ML IVCONT (13:09)
[2023-01-26] MEDS: acetaZOLAMIDE sodium 500 MG VIAL 250 MG IVPUSH (13:23)
[2023-01-26 15:07] VITALS: BP 118/68; PULSE 110; RESP 20; TEMP 37; O2SAT 94
[2023-01-26] MEDS: Ferrous Sulfate 324 MG TABLET.DR PO (17:22)
[2023-01-26] MEDS: cefTRIAXone sodium 1 GM in 0.9 % Sodium Chloride 50 ML IV (17:24)
[2023-01-26] MEDS: Warfarin Sodium 1 MG TABLET PO (17:31)
[2023-01-26 19:05] VITALS: BP 120/76; PULSE 108; RESP 20; TEMP 36.8; O2SAT 93
[2023-01-26] MEDS: Metoprolol Succinate ER 100 MG TAB.ER.24H PO (21:03)
[2023-01-26] MEDS: guaiFENesin LA 600 MG TAB.ER.12H PO (21:03)
[2023-01-26] MEDS: Atorvastatin Calcium 40 MG TABLET PO (21:03)
[2023-01-27] VITALS (7 sets, daily range): BP systolic 108–133; BP diastolic 54–81; PULSE 67–110; RESP 17–24; TEMP 36.3–37.2; O2SAT 90–97; BMI 24.9
[2023-01-27] MEDS: Omeprazole 20 MG CAPSULE.DR PO ×2 (05:00→15:54)
[2023-01-27] MEDS: guaiFENesin DM 100/10/5 ML 5 ML SYRUP 10 ML PO (05:00)
[2023-01-27] MEDS: levalbuterol HCL 1.25 MG/3 ML VIAL.NEB INHALE (07:43)
[2023-01-27 07:44] LABS: INTERNATIONAL NORM RATIO 1.2 (0.9-1.1); Prothrombin Time 14.4 SEC (11.1-13.3)
[2023-01-27 08:12] LABS: Blood Urea Nitrogen 49 mg/dL (9-16); Calcium 8.5 mg/dL (8.4-10.2); Creatinine Clr Calc Pharmacy 49.5; Estimated Glomerular Filt Rate 56; Glucose Random 133 mg/dL (60-115)
[2023-01-27 08:15] LABS: Anion Gap 15 (12-20); Carbon Dioxide 44 mmol/L (22-29); Chloride 93 mmol/L (96-108); Potassium 3.7 mmol/L (3.3-5.1); Sodium 148 mmol/L (135-145)
[2023-01-27] MEDS: Digoxin 0.125 MG TABLET PO (09:15)
[2023-01-27] MEDS: 0.9 % Sodium Chloride Flush 3 ML SYRINGE IVFLUSH ×3 (09:15→21:04)
[2023-01-27] MEDS: guaiFENesin LA 600 MG TAB.ER.12H PO ×2 (09:15→21:04)
[2023-01-27] MEDS: Folic Acid 1 MG TABLET PO (09:15)
[2023-01-27] MEDS: Metoprolol Succinate ER 100 MG TAB.ER.24H PO ×2 (09:15→21:04)
[2023-01-27] MEDS: Nicotine 14 MG PATCH.TD24 TRANSDERMA (09:15)
[2023-01-27] MEDS: Doxycycline Monohydrate 100 MG CAPSULE PO ×2 (09:15→21:04)
--- NOTE | 2023-01-27 10:02 | PM.PNCARD ---
Subjective Subjective Date of Service: 01/27/23 Principal diagnosis: CHF predominantly right heart failure, atrial fibrillation chronic Interval history: Patient has diuresed overall about 11 L. Still on Lasix drip. Says he has cough but denies any significant shortness of breath. Leg edema appears stable. Atrial fibrillation with slightly rapid ventricular response. Creatinine is improved and baseline. Review of Systems Constitutional: Reports weakness Cardiovascular: Reports no additional cardiovascular complaints, Denies leg edema, Denies palpitations and Denies dyspnea Respiratory: Reports cough and Denies dyspnea Gastrointestinal: Reports no additional gastrointestinal complaints Reports weakness Endocrine: Denies palpitations Physical Exam Vital Signs: Last Vital Signs Temp 98.5 F 01/27/23 08:00 Pulse 110 H 01/27/23 08:00 Resp 20 01/27/23 08:00 BP 122/65 01/27/23 08:00 Pulse Ox 90 L 01/27/23 08:00 O2 Del Method Oxymask 01/27/23 08:00 O2 Flow Rate 3 01/27/23 08:00 BMI result Body Mass Index 24.9 GENERAL APPEARANCE: Frail, short of breath on supplemental oxygen. Upper airway gurgling/secretions. NECK: no carotid bruit, positive jugular venous distention. SKIN: no suspicious lesions, warm and dry. HEART: no murmurs, irregular rate and rhythm. LUNGS: clear to auscultation bilaterally. ABDOMEN: soft, nontender. EXTREMITIES: + edema. PERIPHERAL PULSES: equal. NEUROLOGIC: No gross deficits, AAO X 3 Objective Labs and Meds 01/26/23 07:37 01/27/23 06:32 Lab results: Laboratory Results - last 24 hr 01/27/23 06:32 Hold Purple Top SEE NOTE PT 14.4 H INR 1.2 H Sodium 148 H Potassium 3.7 Chloride 93 L Carbon Dioxide 44 H* Anion Gap 15 BUN 49 H Creatinine 1.24 Estim Creat Clear Calc 49.5 Estimated GFR 56 Random Glucose 133 H Calcium 8.5 Progress Note: A&P Assessment and plan (1) CHF exacerbation: Status: Acute Assessment and Plan: CHF exacerbation clinically much improved. Status post about 11 L of negative balance. Continue IV diuresis for 1 more day. Trend BNP tomorrow along with renal function. Agree with Diamox overall therapy given his chronic respiratory failure with COPD. Overall prognosis guarded given his advanced lung malignancy as well as COPD and frail status. Continue supportive care. Can switch to oral diuretics tomorrow. (2) Atrial fibrillation with RVR: Status: Acute Assessment and Plan: Atrial fibrillation with slightly rapid ventricular response. Continue current therapy with digoxin and metoprolol. 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 Continue supportive care and treatment of his underlying pulmonary condition. Not on oral anticoagulation due to significant anemia as well as prior significant GI bleeding. Will sign of the case. Thank you for allowing me to partake in his care Time Spent With Patient Time: Total time managing care of this patient today ____ minutes. Progress Note: Quality Stroke Does the patient have a stroke diagnosis?: No Procedures Date of Service Date of Service: 01/27/23
--- NOTE | 2023-01-27 10:34 | MHC.CM.PN ---
PER MD ROUNDS, PT NOT READY TO DC, ON LASIX DRIP WITH PULMONARY CONSULT PENDING DCP REMAINS STR, FROM [facility]. UPDATES SENT
--- NOTE | 2023-01-27 12:11 | HO.PM.IMPN ---
Subjective Subjective Date of Service: 01/27/23 Interval History: seen and examined this morning follow up for CHF, afib, pneumonia feeling sob although a little better this morning, having productive cough Review of Systems All other system reviewed and negative Review of Systems: Yes all other systems are reviewed and are negative Constitutional Constitutional: Denies chills and Denies fever(s) Cardiovascular Cardiovascular: Denies chest pain, Denies palpitations and Reports dyspnea Respiratory Respiratory: Reports cough and Reports dyspnea Gastrointestinal Gastrointestinal: Denies abdominal pain Endocrine Endocrine: Denies palpitations Physical Exam Vital Signs: Vital Signs: Last Vital Signs Temp 98.0 F 01/27/23 11:06 Pulse 107 H 01/27/23 11:06 Resp 20 01/27/23 11:06 BP 123/73 01/27/23 11:06 Pulse Ox 93 01/27/23 11:06 O2 Del Method Oxymask 01/27/23 11:06 O2 Flow Rate 3 01/27/23 11:06 BMI result Body Mass Index 24.9 Appearing in no acute distress lung sounds are clear to auscultation heart regular rate rhythm, clear S1, S2 positive bowel sounds, abdomen is soft, nontender neuro patient is alert x3, no focal deficits Objective Data Active Medications Acetaminophen (Acetaminophen 325 Mg Tablet) 650 mg PO Q6H PRN PRN Reason: Pain, Mild (Pain Scale 1-3) Last Admin: 01/24/23 21:17 Dose: 650 mg Documented By: LESTER Albuterol Sulfate (Albuterol Sulfate 90 Mcg 8 Gm Inhaler) 2 puff INHALE Q6H PRN PRN Reason: Shortness Of Breath Or Wheezing Atorvastatin Calcium (Atorvastatin Calcium 40 Mg Tablet) 40 mg PO BEDTIME [facility] Last Admin: 01/26/23 21:03 Dose: 40 mg Documented By: RODGER Digoxin (Digoxin 0.125 Mg Tablet) 0.125 mg PO SUMOWEFR@0900 [facility] Last Admin: 01/27/23 09:15 Dose: 0.125 mg Documented By: MONICA Docusate Sodium (Docusate Sodium 100 Mg Capsule) 100 mg PO DAILY PRN PRN Reason: Constipation Last Admin: 01/24/23 08:17 Dose: 100 mg Documented By: MALIA Doxycycline Monohydrate (Doxycycline Monohydrate 100 Mg Capsule) 100 mg PO BID [facility] Last Admin: 01/27/23 09:15 Dose: 100 mg Documented By: MONICA Ferrous Sulfate (Ferrous Sulfate 324 Mg Tablet.Dr) 324 mg PO DAILY@1500 [facility] Last Admin: 01/26/23 17:22 Dose: 324 mg Documented By: JANICE Folic Acid (Folic Acid 1 Mg Tablet) 1 mg PO DAILY [facility] Last Admin: 01/27/23 09:15 Dose: 1 mg Documented By: MONICA Guaifenesin (Guaifenesin La 600 Mg Tab.Er.12h) 600 mg PO BID [facility] Last Admin: 01/27/23 09:15 Dose: 600 mg Documented By: MONICA Guaifenesin/Dextromethorphan (Guaifenesin Dm 100/10/5 Ml 5 Ml Syrup) 10 ml PO Q6H PRN PRN Reason: cough Last Admin: 01/27/23 05:00 Dose: 10 ml Documented By: ANTYASMANI Furosemide 200 mg/ Sodium (Chloride) 100 mls @ 2.5 mls/hr IVCONT .Q24H [facility] Last Admin: 01/26/23 13:09 Dose: 5 mg/hr, 2.5 mls/hr Documented By: JANICE Ceftriaxone Sodium 1 gm/ (Sodium Chloride) 50 mls @ 100 mls/hr IV Q24H [facility] Last Infusion: 01/26/23 18:12 Dose: Infused Documented By: JANICE Levalbuterol HCl (Levalbuterol Hcl 1.25 Mg/3 Ml Vial.Neb) 1.25 mg INHALE Q4H PRN PRN Reason: Shortness of Breath/Wheezing Last Admin: 01/27/23 07:43 Dose: 1.25 mg Documented By: ROLF Melatonin (Melatonin 3 Mg Tablet) 6 mg PO BEDTIME PRN PRN Reason: Insomnia Last Admin: 01/24/23 00:33 Dose: 6 mg Documented By: OLGA Metoprolol Succinate (Metoprolol Succinate Er 100 Mg Tab.Er.24h) 100 mg PO BID [facility]; Protocol Last Admin: 01/27/23 09:15 Dose: 100 mg Documented By: MONICA Nicotine (Nicotine 14 Mg Patch.Td24) 14 mg TRANSDERMA DAILY [facility] Last Admin: 01/27/23 09:15 Dose: 14 mg Documented By: MONICA Omeprazole (Omeprazole 20 Mg Capsule.Dr) 20 mg PO BID@0630,1630 [facility] Last Admin: 01/27/23 05:00 Dose: 20 mg Documented By: DELANEY Ondansetron HCl (Ondansetron Hcl 4 Mg/2 Ml Vial) 4 mg IVPUSH Q8H PRN PRN Reason: Nausea and Vomiting Polyethylene Glycol (Polyethylene Glycol 3350 17 Gm Powd.Pack) 17 gm PO DAILY PRN PRN Reason: Constipation Sodium Chloride (0.9 % Sodium Chloride Flush 3 Ml Syringe) 3 ml IVFLUSH QSHIFT [facility] Last Admin: 01/27/23 09:15 Dose: 3 ml Documented By: MONICA Warfarin Sodium (Warfarin Sodium 3 Mg Tablet) 3 mg PO DAILY@1800 [facility] Labs 01/26/23 07:37 01/27/23 06:32 Labs: Laboratory Results - last 24 hr 01/27/23 06:32 Hold Purple Top SEE NOTE PT 14.4 H INR 1.2 H Anion Gap 15 Estim Creat Clear Calc 49.5 Estimated GFR 56 Random Glucose 133 H Calcium 8.5 Microbiology Microbiology Results: Microbiology 01/22/23 06:38 Blood Culture - Final Blood - Venous No growth after 5 days. 01/22/23 06:38 Blood Culture - Final Blood - Venous No growth after 5 days. 01/25/23 18:30 Blood Culture - Preliminary Blood - Venous No growth after 24 hours. 01/25/23 18:30 Blood Culture - Preliminary Blood - Venous No growth after 24 hours. Assessment and Plan (1) KISHAN (acute kidney injury): Status: Acute (2) Pneumonia: Status: Acute (3) CHF exacerbation: Status: Acute (4) Atrial fibrillation with RVR: Status: Acute (5) Acute respiratory failure with hypoxia: Status: Acute Plan 82-year-old male with a PMH significant for?severe COPD, recurrent metastatic lung cancer s/p right lobectomy, HFpEF, chronic AFib, HLD, PAD, and hx of gastritis who presents to the ED from [facility] with increasing shortness of breath and hypoxia. Acute hypoxic respiratory failure related to acute on chronic HFpEF and pneumonia s/p BiPAP in ED down to 3L oxymask continue IV Lasix drip then transition to oral BNP trending down close to baseline Daily weights, low-salt diet echocardiogram 12/30/2022 showed EF 55-60% moderately decreased right ventricular systolic function with elevated right atrial pressures, moderate pulmonary hypertension and indeterminate diastolic function given persistent sob despite good diuresis -chest xray was repeated and showed evidence of pneumonia bicarb trending up will give one dose of diamox, check VBG cardiology following Pneumonia started on ceftriaxone, doxycycline 01/25 no sepsis, tachycardia r/t atrial fibrillation blood cultures neg after 24 hrs speech eval> ground diet, honey thick Persistent AFib with RVR dose of Toprol Xl increased to 100 bid continue digoxin Coumadin initially on hold due to recent drop in H&H requiring 2 units of packed RBC on 12/30/2022 - Coumadin has been on hold for last 2 weeks, H/H stable so coumadin resumed; follow INR daily cardiology following Acute COPD exacerbation, resolved on Xopenex d/t tachycardia, s/p iv Solu-Medrol Continue home inhalers Monitor respiratory status KISHAN Patient's creatinine bumped to 1.5, elevated above baseline of 0.90 Likely cardiorenal, creatinine now trending down to 1.3 follow renal function Abnormal CXR findings CXR found new nodular density in the lateral mid to upper right lung may reflect fissural fluid verses a new 3.6 cm mass, Patient with history of recurrent metastatic lung cancer recommend follow up outpatient with Oncology, inform daughter about chest x-ray findings chronic anemia with Hx of gastritis H/H stable Continue omeprazole 20 mg b.i.d. for another 2 weeks, switch to omeprazole 20 mg daily on 02/08/2023, per GI status post colonoscopy and upper endoscopy July 2021 was normal, status post video capsule study this revealed melenic type fluid and bleeding probably in the ileum in apr 2022 Full Code DVT Prophylaxis: coumadin , Attending Dr. Greenfield Requires continued inpatient hospitalization for treatment of?acute hypoxic respiratory failure,CHF requiring IV Lasix, supplemental O2, breathing treatments, and close monitoring of respiratory status Time Spent With Patient Time: Total time managing care of this patient today ____ minutes. Quality Stroke Does the patient have a stroke diagnosis?: No VTE Prior VTE?: No VTE Risk Level:: Medical - moderate - high VTE Device Contraindication: Treatment Not Indicated VTE Drug Contraindication: N/A - Med Ordered
[2023-01-27 12:47] LABS: VBG HCO3 55 mmol/L (22-26); VBG pCO2 74 mmHg; VBG pH 7.48 (7.32-7.43); VBG pO2 57 mmHg
[2023-01-27 12:49] LABS: Venous Blood Gas Refer to POC result
--- NOTE | 2023-01-27 13:41 | MHC.SL.SWA ---
Speech Pathologist Impression:Risk of aspiration, oropharyngeal dysphagia Risk of Aspiration Due to: Medically Fragile Dysphasia Diet Status: DOWNGRADE from regular texture diet to NDD3/HTL Liquid Consistency and Strategies for Safe Swallow: Liquid Intake Recommendation: Honey Thick Liquid Intake Strategies: Small Sips No Straws Liquids by Teaspoon Only Solid Food Consistency: Dietary Recommendations: Chopped/Advanced (NDD3) Additional Modifications to Solid Foods: Recommend START on modified diet CHOPPED/ADVANCED (NDD3) solids and HONEY THICK liquids by teaspoon ONLY, pills CRUSHED in PUREE. Pt to be supervised during all PO intake, provide assistance as needed and monitor for any overt s/s of aspiration. Ensure strict aspiration precautions. Diet order updated by DATA WAREHOUSE DEVELOPER, care team (BREEDER HEN SERVICE TECHNICIAN, RN, RD) also notified via [employer] Message. DATA WAREHOUSE DEVELOPER will continue to follow. Oral Medication Intake: Crushed with Puree Please contact the pharmacy regarding appropriate crushable or liquid drug formulations that are available whenever modified delivery is recommended. Compensatory Strategies and Precautions to be Taken for Safe Swallow: Sitting Upright (90 deg) Double Swallow No Straw Liquids from Spoon Small Bites and Sips Rate of Ingestion Change Oral Check Avoid Specific Foods Supervision While Eating and Drinking for Safe Swallow: Total Supervision (1:1) Foods to Avoid: Mixed textures, hard to chew solids Swallowing Recommended Treatments: Compens. Strategy Educat. Recommendation for Speech: Inpatient Speech Therapy Speech Therapy through Rehab Facility Recommend continue ST for the treatment of dysphagia at next level of care. Ground School Instructor Clinican/Clinical Fellow: No Supervisory Statement: I have reviewed and agree with the student/clinical fellow's documentation: N/A Speech Language Pathologist: Rain Al M.A., CCC-DATA WAREHOUSE DEVELOPER
[2023-01-27] MEDS: Furosemide 200 MG in 0.9 % Sodium Chloride 80 ML IVCONT (15:53)
[2023-01-27] MEDS: Ferrous Sulfate 324 MG TABLET.DR PO (15:54)
[2023-01-27] MEDS: cefTRIAXone sodium 1 GM in 0.9 % Sodium Chloride 50 ML IV (17:34)
--- NOTE | 2023-01-27 17:37 | PM.CNPUL ---
History of Present Illness History of Present Illness Consult date: 01/27/23 Chief complaint: CHF exacerbation, Afib Narrative: Pulmonary Consult : I have seen this 82 years old gentleman this morning for pulmonary consultation. He has history of underlying severe COPD and recurrent lung cancer, previously status post right lobectomy with recurrence of metastatic disease, And has been treated at [facility] with came a radiation . He has been at [facility]. His [place] [facility] facility And admitted because of increased shortness of breath, cough , increased edema for a few days and also O2 desaturations. This seems to coincide with increased fluid retention, as he was not getting diuretic therapy at the [place] [facility] facility. He denied any fever or chills. Since his admission over here he is being treated with diuresis, oxygen supplementation. And is gradually improving. Initially required BiPAP with oxygen supplementation and then has been weaned off the BiPAP and doing well with O2 3 L/minute with oxy mask. His main complaint at this time is generalized weakness. [facility] Review of Systems Review of Systems: Yes all other systems are reviewed and are negative [facility] Past Medical History Medical History Atrial fibrillation with rapid ventricular response Recurrent non-small cell lung cancer Anemia Heart failure with reduced ejection fraction PAD (peripheral artery disease) Wears dentures Congestive heart failure Cancer of upper lobe of right lung (~2013) Neuropathy Physical deconditioning Vitamin D deficiency Osteoarthritis of knees, bilateral Gout Lumbar degenerative disc disease Benign essential hypertension Type 2 diabetes mellitus with other diabetic kidney complication Bilateral lower extremity edema Chronic atrial fibrillation Osteoarthritis Back pain HLD (hyperlipidemia) CAD (coronary artery disease) Smoker COPD (chronic obstructive pulmonary disease) Family History Family History Mother Heart disease Father Heart disease Surgical History Surgical History History of lung biopsy History of bronchoscopy (~2020) History of thoracentesis (~09/2019) History of partial colectomy (~01/2001) History of colonoscopy (~01/2001) History of back surgery History of angioplasty (~12/2020) History of brain surgery (~2003) History of right knee surgery (~09/2005) History of cardiac cath (~02/2016) History of lung surgery (~2019) History of lung surgery (~07/2013) Social History Social History Household Members: None Housing: Condominium Are you a primary career counselor to a significant other at home: No Do you presently have visiting nurse or other home services: Yes Alcohol intake: unknown Patient Tobacco Use Status: Current everyday Tobacco user Tobacco use type: Cigarette Cigarette Packs Per Day: 0.5 Cigarettes Per Day: 10 Years Smoked: 50 Second Hand Smoke Exposure: No Advance Directives Date on File: 10/05/21 service: No Current occupational status: retired Cognitive needs: Yes (cane) Hearing needs: No Vision needs: Yes Meds Allergies Allergy/AdvReac Type Severity Reaction Status Date / Time No Known Allergies Allergy Unknown UNKNOWN Verified 12/09/22 09:58 [NO KNOWN ALLERGIES] Active Medications: Current Medications Acetaminophen (Acetaminophen 325 Mg Tablet) 650 mg PO Q6H PRN PRN Reason: Pain, Mild (Pain Scale 1-3) Last Admin: 01/24/23 21:17 Dose: 650 mg Albuterol Sulfate (Albuterol Sulfate 90 Mcg 8 Gm Inhaler) 2 puff INHALE Q6H PRN PRN Reason: Shortness Of Breath Or Wheezing Atorvastatin Calcium (Atorvastatin Calcium 40 Mg Tablet) 40 mg PO BEDTIME [facility] Last Admin: 01/26/23 21:03 Dose: 40 mg Digoxin (Digoxin 0.125 Mg Tablet) 0.125 mg PO SUMOWEFR@0900 [facility] Last Admin: 01/27/23 09:15 Dose: 0.125 mg Docusate Sodium (Docusate Sodium 100 Mg Capsule) 100 mg PO DAILY PRN PRN Reason: Constipation Last Admin: 01/24/23 08:17 Dose: 100 mg Doxycycline Monohydrate (Doxycycline Monohydrate 100 Mg Capsule) 100 mg PO BID [facility] Last Admin: 01/27/23 09:15 Dose: 100 mg Ferrous Sulfate (Ferrous Sulfate 324 Mg Tablet.Dr) 324 mg PO DAILY@1500 [facility] Last Admin: 01/27/23 15:54 Dose: 324 mg Folic Acid (Folic Acid 1 Mg Tablet) 1 mg PO DAILY [facility] Last Admin: 01/27/23 09:15 Dose: 1 mg Guaifenesin (Guaifenesin La 600 Mg Tab.Er.12h) 600 mg PO BID [facility] Last Admin: 01/27/23 09:15 Dose: 600 mg Guaifenesin/Dextromethorphan (Guaifenesin Dm 100/10/5 Ml 5 Ml Syrup) 10 ml PO Q6H PRN PRN Reason: cough Last Admin: 01/27/23 05:00 Dose: 10 ml Furosemide 200 mg/ Sodium (Chloride) 100 mls @ 2.5 mls/hr IVCONT .Q24H [facility] Last Admin: 01/27/23 15:53 Dose: 5 mg/hr, 2.5 mls/hr Ceftriaxone Sodium 1 gm/ (Sodium Chloride) 50 mls @ 100 mls/hr IV Q24H [facility] Last Admin: 01/27/23 17:34 Dose: 100 mls/hr Levalbuterol HCl (Levalbuterol Hcl 1.25 Mg/3 Ml Vial.Neb) 1.25 mg INHALE Q4H PRN PRN Reason: Shortness of Breath/Wheezing Last Admin: 01/27/23 07:43 Dose: 1.25 mg Melatonin (Melatonin 3 Mg Tablet) 6 mg PO BEDTIME PRN PRN Reason: Insomnia Last Admin: 01/24/23 00:33 Dose: 6 mg Metoprolol Succinate (Metoprolol Succinate Er 100 Mg Tab.Er.24h) 100 mg PO BID [facility]; Protocol Last Admin: 01/27/23 09:15 Dose: 100 mg Nicotine (Nicotine 14 Mg Patch.Td24) 14 mg TRANSDERMA DAILY [facility] Last Admin: 01/27/23 09:15 Dose: 14 mg Omeprazole (Omeprazole 20 Mg Capsule.) 20 mg PO BID@0630,1630 [facility] Last Admin: 01/27/23 15:54 Dose: 20 mg Ondansetron HCl (Ondansetron Hcl 4 Mg/2 Ml Vial) 4 mg IVPUSH Q8H PRN PRN Reason: Nausea and Vomiting Polyethylene Glycol (Polyethylene Glycol 3350 17 Gm Powd.Pack) 17 gm PO DAILY PRN PRN Reason: Constipation Sodium Chloride (0.9 % Sodium Chloride Flush 3 Ml Syringe) 3 ml IVFLUSH QSHIFT [facility] Last Admin: 01/27/23 17:30 Dose: 3 ml Warfarin Sodium (Warfarin Sodium 3 Mg Tablet) 3 mg PO DAILY@1800 [facility] Home Medications Medication Instructions Recorded Confirmed Last Taken Type calcium carbonate 600 mg-vitamin 1 tab PO DAILY 07/10/20 01/22/23 03/16/22 History D3 5 mcg (200 unit) tablet ferrous sulfate 325 mg (65 mg 325 mg PO DAILY@1500 03/17/22 01/22/23 03/16/22 History iron) tablet vit C 250 mg-vit E 90 mg-zinc 40 1 tab PO DAILY 03/17/22 01/22/23 03/16/22 History mg-copper 1 [id number] capsule (PreserVision AREDS-2) albuterol sulfate 90 mcg/actuation 2 puff inhalation Q6H PRN 01/22/23 01/22/23 Unknown History aerosol inhaler Shortness Of Breath Or Wheezing dextromethorphan HBr 15 mg/5 mL 30 mg PO DAILY 01/22/23 01/22/23 Unknown History oral liquid digoxin 125 mcg (0.125 mg) tablet 125 mcg PO SUMOWEFR@0900 01/22/23 01/22/23 Unknown History furosemide 40 mg tablet 60 mg PO DAILY 01/22/23 01/22/23 Unknown History guaifenesin 600 mg tablet, 1,200 mg PO Q12H PRN Cough 01/22/23 01/22/23 Unknown History extended release 12 hr Physical Exam Vital Signs: Vital Signs: Last Vital Signs Temp 98.6 F 01/27/23 15:52 Pulse 93 01/27/23 15:52 Resp 17 01/27/23 15:52 BP 110/60 01/27/23 15:52 Pulse Ox 94 01/27/23 15:52 O2 Del Method Nasal Cannula 01/27/23 15:52 O2 Flow Rate 2 01/27/23 15:52 BMI result Body Mass Index 24.9 Const: General: no acute distress, alert and awake; No healthy appearing (Chronically sick-looking, emaciated.) HEENT: Head: Yes normal to inspection General nose exam: No nasal polyps present and No nasal discharge present Face and sinus: Yes sinuses nontender Mouth: oropharynx normal Throat: Yes posterior oropharynx normal Eyes: General: appearance normal, both eyes and all related structures Neck: Neck: Yes normal visual inspection, Yes no lymphadenopathy, Yes trachea midline and Yes no JVD Thyroid: Thyroid normal Chest: Chest palpation & inspection: normal inspection of the chest, normal palpation of entire chest wall and no tenderness Resp: Other: Percussion note is resonant, breath sounds are distant. A few basilar crepitations, no wheezes are heard. Cardio: Rate: regular rate Rhythm: abnormal rhythm (Atrial fibrillation) Heart sounds: no gallops and no murmurs GI: Palpation (GI): Soft to palpation, nontender, No hepatosplenomegaly present and no masses Auscultation: normal bowel sounds Back/Spine/Pelvis: Other: Not examined Skin: General skin exam: no rashes or lesions noted Neuro: Other: Patient is extremely weak, Examination not performed in detail. Extrem: General: Yes normal to inspection, Yes no clubbing, cyanosis or edema and Yes no calf tenderness Psych: Speech and movement: Normal speech and movement present Results Laboratory Findings 01/26/23 07:37 01/27/23 06:32 ABG, PT/INR, D-dimer: PT/INR, D-dimer PT 14.4 SEC (11.1-13.3) H 01/27/23 06:32 INR 1.2 (0.9-1.1) H 01/27/23 06:32 Abnormal lab findings: Abnormal Labs 01/22/23 01/22/23 01/22/23 05:25 05:28 06:41 WBC 4.0 L RBC 2.95 L Hgb 9.3 L Hct 31.5 L MCV 106.8 H MCHC 29.5 L RDW 17.5 H Lymph % (Auto) 14.2 L [place] % (Auto) 17.7 H Lymph # (Auto) 0.6 L Absolute Nucleated RBC 0.020 H Nucleated RBC % (auto) 0.5 H PT INR ABG pCO2 at Pt Temp ABG pO2 at Pt Temp ABG HCO3 VBG pH 7.30 L 7.30 L VBG HCO3 37 H 37 H Sodium Chloride Carbon Dioxide 32 H BUN 44 H Creatinine 1.46 H Random Glucose 119 H B-Natriuretic Peptide 1366 H Total Protein 6.1 L Albumin 3.1 L Digoxin 01/22/23 01/22/23 01/23/23 07:26 08:05 06:30 WBC 3.4 L RBC 2.77 L Hgb 8.7 L Hct 28.5 L MCV 102.9 H MCHC 30.5 L RDW 17.4 H Lymph % (Auto) [place] % (Auto) Lymph # (Auto) Absolute Nucleated RBC Nucleated RBC % (auto) PT INR ABG pCO2 at Pt Temp 62 H* ABG pO2 at Pt Temp 74 L ABG HCO3 36 H VBG pH VBG HCO3 Sodium Chloride Carbon Dioxide 33 H BUN 48 H Creatinine Random Glucose 172 H B-Natriuretic Peptide Total Protein Albumin Digoxin 0.6 L 01/24/23 01/25/23 01/26/23 05:43 06:37 07:37 WBC RBC 2.92 L 2.89 L Hgb 8.5 L 9.0 L 8.9 L Hct 28.1 L 30.7 L 30.5 L MCV 105.1 H 105.5 H MCHC 29.3 L 29.2 L RDW 17.6 H 17.3 H Lymph % (Auto) [place] % (Auto) Lymph # (Auto) Absolute Nucleated RBC Nucleated RBC % (auto) PT INR ABG pCO2 at Pt Temp ABG pO2 at Pt Temp ABG HCO3 VBG pH VBG HCO3 Sodium 146 H 147 H Chloride Carbon Dioxide 35 H 33 H 40 H* D BUN 58 H 58 H 50 H Creatinine 1.56 H 1.57 H Random Glucose 136 H 127 H B-Natriuretic Peptide 677 H Total Protein Albumin Digoxin 01/27/23 01/27/23 06:32 12:40 WBC RBC Hgb Hct MCV MCHC RDW Lymph % (Auto) [place] % (Auto) Lymph # (Auto) Absolute Nucleated RBC Nucleated RBC % (auto) PT 14.4 H INR 1.2 H ABG pCO2 at Pt Temp ABG pO2 at Pt Temp ABG HCO3 VBG pH 7.48 H VBG HCO3 55 H Sodium 148 H Chloride 93 L Carbon Dioxide 44 H* BUN 49 H Creatinine Random Glucose 133 H B-Natriuretic Peptide Total Protein Albumin Digoxin Microbiology: Microbiology 01/22/23 06:38 Blood - Venous Blood Culture - Final No growth after 5 days. 01/22/23 06:38 Blood - Venous Blood Culture - Final No growth after 5 days. 01/25/23 18:30 Blood - Venous Blood Culture - Preliminary No growth after 24 hours. 01/25/23 18:30 Blood - Venous Blood Culture - Preliminary No growth after 24 hours. Diagnostic Findings Chest x-ray: report reviewed and image reviewed CT scan - chest: report reviewed and image reviewed Assessment and Plan (1) Acute exacerbation of chronic obstructive pulmonary disease: Status: Acute (2) Acute respiratory failure with hypoxia: Status: Acute (3) Pneumonia: Status: Acute (4) COPD (chronic obstructive pulmonary disease): Qualifiers: COPD type: unspecified COPD Qualified Code(s): J44.9 - Chronic obstructive pulmonary disease, unspecified Status: Acute (5) Cancer of upper lobe of right lung: Status: Acute (6) CHF exacerbation: Status: Acute Plan This 82 years old gentleman, chronically sick with extensive past medical history, including advanced chronic obstructive pulmonary disease, history of metastatic lung cancer i, status post right lobectomy. Has been treated with radiotherapy,at [facility]. Is main issue at this time seems to be exacerbation of his chronic congestive heart failure, which. Is responding to diuretic therapy He does have acute exacerbation of COPD, which is also. improving with therapy A nodular density in the right upper lobe area of may represent a pneumonitis, Oxygen requirement has definitely decreased. Overall prognosis remains guarded. Recc : I agree with the current treatment including Rocephin and doxycycline. O2 supplementation to keep O2 sat above 90% Updrafts with levalbuterol Q. 4-6 hours p.r.n. Continue diuretic therapy as per cardiology service. Thank you very much for asthma to see this patient. Time Spent With Patient Time: Total time managing care of this patient today ____ minutes. Procedures Date of Service Date of Service: 01/27/23
[2023-01-27] MEDS: Warfarin Sodium 3 MG TABLET PO (18:00)
[2023-01-27] MEDS: Melatonin 3 MG TABLET 6 MG PO (21:04)
[2023-01-27] MEDS: Atorvastatin Calcium 40 MG TABLET PO (21:04)
[2023-01-28] VITALS (7 sets, daily range): BP systolic 117–158; BP diastolic 56–77; PULSE 86–105; RESP 17–20; TEMP 36.3–37.4; O2SAT 92–95; BMI 23.5
[2023-01-28] MEDS: Omeprazole 20 MG CAPSULE.DR PO ×2 (05:37→16:44)
[2023-01-28 07:11] LABS: INTERNATIONAL NORM RATIO 1.1 (0.9-1.1); Prothrombin Time 13.7 SEC (11.1-13.3)
[2023-01-28] MEDS: Furosemide 20 MG TABLET 60 MG PO (10:22)
[2023-01-28] MEDS: Folic Acid 1 MG TABLET PO (10:22)
[2023-01-28] MEDS: Metoprolol Succinate ER 100 MG TAB.ER.24H PO ×2 (10:23→21:09)
[2023-01-28] MEDS: Nicotine 14 MG PATCH.TD24 TRANSDERMA (10:23)
[2023-01-28] MEDS: Doxycycline Monohydrate 100 MG CAPSULE PO ×2 (10:23→21:09)
--- NOTE | 2023-01-28 10:37 | PC.NURSE ---
aguilar cath removed at 10:37. pt tolerated procedure well. Due to void by 16:37.
--- NOTE | 2023-01-28 12:30 | MHC.SPEECHCO ---
Per RN, Pt has been lethargic all day. On arrival he opens his sound to my voice and sternal rub, however he does not keep them open for long. He nods yes to indicate that he is hungry when asked. He accepted moistened swabs with oral preparation initiation. He was given an ice chip, however he closed his eyes and let it linger on his tongue without further preparation. He was cued to swallow, which he did after delay on laryngeal palpation. No further trials due to the Pt's altered mental status. Per RN, his seizure medication is being titrated today. JOB TRAINING SPECIALIST will re-attempt tomorrow, as appropriate.
--- NOTE | 2023-01-28 12:35 | MHC.SLORD ---
Speech Language Pathology Order Status: Per RN, Pt has been lethargic all day. On arrival he opens his eye to the sound of my voice and sternal rub, however he does not keep them open for long. He nods yes to indicate that he is hungry when asked. He accepted moistened swabs with oral preparation initiation. He was given an ice chip, however he closed his eyes and let it linger on his tongue without further preparation. He was cued to swallow, which he did after delay on laryngeal palpation. No further trials due to the Pt's altered mental status. Per RN, his seizure medication is being titrated today. REPAIR SPECIALIST will re-attempt tomorrow, as appropriate.
[2023-01-28] MEDS: levalbuterol HCL 1.25 MG/3 ML VIAL.NEB INHALE (12:45)
--- NOTE | 2023-01-28 12:45 | P.CDIM_ITS ---
PROVIDER RESPONSE TEXT: To clarify, the appropriate diagnosis supported by the clinical indicators: Hypernatremia QUERY TEXT: PHYSICIAN'S DOCUMENTATION REQUEST Date of Query: 01/28/2023 08:00 AM EDT Patient Name: Scottie Encinas Admit Date: 01/22/2023 Dear Renea Bob, A review of the medical record indicates additional documentation may be needed. Please review below and update the documentation accordingly. Clinical Indicators: LAB FINDINGS: sodium 147 H 148 H fluids Based on the above, is there a diagnosis that correlates with these lab findings: Hypernatremia Labs indicate a diagnosis of (please specify) Other (explain)Clinically unable to determine (explain)Thank you, Cookie Lawler, CCS, CDIS Use of terms such as suspected, likely, concern for, or probable (associated with a specific diagnosi s that is being evaluated, monitored, or treated as if it exists) are acceptable and can be coded in the inpatient se tting, when documented at the time of discharge. Please use your independent medical judgment in providing your response. THIS QUERY IS PART OF THE PERMANENT MEDICAL RECORD
--- NOTE | 2023-01-28 13:13 | P.PNIM_ITS ---
Subjective Subjective Date of Service: 01/28/23 Interval History: seen and examined this morning follow up for CHF, afib, pneumonia feeling sob although a little better this morning, having productive cough Review of Systems All other system reviewed and negative Review of Systems: Yes all other systems are reviewed and are negative Constitutional Constitutional: Denies chills and Denies fever(s) Cardiovascular Cardiovascular: Denies chest pain, Denies palpitations and Reports dyspnea Respiratory Respiratory: Reports cough and Reports dyspnea Gastrointestinal Gastrointestinal: Denies abdominal pain Endocrine Endocrine: Denies palpitations Physical Exam 2 Vital Signs: Vital Signs: Last Vital Signs Temp 98.6 F 01/28/23 11:54 Pulse 93 01/28/23 12:49 Resp 20 01/28/23 12:49 BP 122/65 01/28/23 11:54 Pulse Ox 93 01/28/23 11:54 O2 Del Method Oxymask 01/28/23 11:54 O2 Flow Rate 2 01/28/23 11:54 BMI result Body Mass Index 23.5 Appearing in no acute distress lung sounds coarse heart regular rate rhythm, clear S1, S2 positive bowel sounds, abdomen is soft, nontender neuro patient is alert x3, no focal deficits Objective Data Active Medications Acetaminophen (Acetaminophen 325 Mg Tablet) 650 mg PO Q6H PRN PRN Reason: Pain, Mild (Pain Scale 1-3) Last Admin: 01/24/23 21:17 Dose: 650 mg Documented By: LESTER Albuterol Sulfate (Albuterol Sulfate 90 Mcg 8 Gm Inhaler) 2 puff INHALE Q6H PRN PRN Reason: Shortness Of Breath Or Wheezing Atorvastatin Calcium (Atorvastatin Calcium 40 Mg Tablet) 40 mg PO BEDTIME [facility] Last Admin: 01/27/23 21:04 Dose: 40 mg Documented By: MADELINE Digoxin (Digoxin 0.125 Mg Tablet) 0.125 mg PO SUMOWEFR@0900 [facility] Last Admin: 01/27/23 09:15 Dose: 0.125 mg Documented By: MONICA Docusate Sodium (Docusate Sodium 100 Mg Capsule) 100 mg PO DAILY PRN PRN Reason: Constipation Last Admin: 01/24/23 08:17 Dose: 100 mg Documented By: MALIA Doxycycline Monohydrate (Doxycycline Monohydrate 100 Mg Capsule) 100 mg PO BID [facility] Last Admin: 01/28/23 10:23 Dose: 100 mg Documented By: JORGE Ferrous Sulfate (Ferrous Sulfate 324 Mg Tablet.) 324 mg PO DAILY@1500 [facility] Last Admin: 01/27/23 15:54 Dose: 324 mg Documented By: NOELLE Folic Acid (Folic Acid 1 Mg Tablet) 1 mg PO DAILY [facility] Last Admin: 01/28/23 10:22 Dose: 1 mg Documented By: JORGE Furosemide (Furosemide 20 Mg Tablet) 60 mg PO DAILY [facility]; Protocol Last Admin: 01/28/23 10:22 Dose: 60 mg Documented By: JORGE Guaifenesin (Guaifenesin La 600 Mg Tab.Er.12h) 600 mg PO BID [facility] Last Admin: 01/28/23 10:36 Dose: Not Given Documented By: JORGE Non-Admin Reason: cant crush med Guaifenesin/Dextromethorphan (Guaifenesin Dm 100/10/5 Ml 5 Ml Syrup) 10 ml PO Q6H PRN PRN Reason: cough Last Admin: 01/27/23 05:00 Dose: 10 ml Documented By: ANTOIC Ceftriaxone Sodium 1 gm/ (Sodium Chloride) 50 mls @ 100 mls/hr IV Q24H [facility] Last Infusion: 01/27/23 18:08 Dose: Infused Documented By: NOELLE Levalbuterol HCl (Levalbuterol Hcl 1.25 Mg/3 Ml Vial.[place]) 1.25 mg INHALE Q4H PRN PRN Reason: Shortness of Breath/Wheezing Last Admin: 01/28/23 12:45 Dose: 1.25 mg Documented By: ROLF Melatonin (Melatonin 3 Mg Tablet) 6 mg PO BEDTIME PRN PRN Reason: Insomnia Last Admin: 01/27/23 21:04 Dose: 6 mg Documented By: MADELINE Metoprolol Succinate (Metoprolol Succinate Er 100 Mg Tab.Er.24h) 100 mg PO BID [facility]; Protocol Last Admin: 01/28/23 10:23 Dose: 100 mg Documented By: JORGE Nicotine (Nicotine 14 Mg Patch.Td24) 14 mg TRANSDERMA DAILY [facility] Last Admin: 01/28/23 10:23 Dose: 14 mg Documented By: JORGE Omeprazole (Omeprazole 20 Mg Capsule.Dr) 20 mg PO BID@0630,1630 [facility] Last Admin: 01/28/23 05:37 Dose: 20 mg Documented By: MADELINE Ondansetron HCl (Ondansetron Hcl 4 Mg/2 Ml Vial) 4 mg IVPUSH Q8H PRN PRN Reason: Nausea and Vomiting Polyethylene Glycol (Polyethylene Glycol 3350 17 Gm Powd.Pack) 17 gm PO DAILY PRN PRN Reason: Constipation Sodium Chloride (0.9 % Sodium Chloride Flush 3 Ml Syringe) 3 ml IVFLUSH QSHIFT [facility] Last Admin: 01/28/23 10:37 Dose: Not Given Documented By: FOSTEKR Non-Admin Reason: Previously Administered Warfarin Sodium (Warfarin Sodium 3 Mg Tablet) 3 mg PO DAILY@1800 [facility] Last Admin: 01/27/23 18:00 Dose: 3 mg Documented By: CTORRZ Labs 01/26/23 07:37 01/27/23 06:32 Labs: Laboratory Results - last 24 hr 01/28/23 05:59 PT 13.7 H INR 1.1 Microbiology Microbiology Results: Microbiology 01/25/23 18:30 Blood Culture - Preliminary Blood - Venous No growth after 48 hours. 01/25/23 18:30 Blood Culture - Preliminary Blood - Venous No growth after 48 hours. Assessment and Plan (1) KISHAN (acute kidney injury): Status: Acute (2) Pneumonia: Status: Acute (3) CHF exacerbation: Status: Acute (4) Atrial fibrillation with RVR: Status: Acute (5) Acute respiratory failure with hypoxia: Status: Acute Plan 82-year-old male with a PMH significant for?severe COPD, recurrent metastatic lung cancer s/p right lobectomy, HFpEF, chronic AFib, HLD, PAD, and hx of gastritis who presents to the ED from [facility] with increasing shortness of breath and hypoxia. Acute hypoxic respiratory failure related to acute on chronic HFpEF and pneumonia s/p BiPAP in ED down to 3L oxymask s/p IV Lasix drip, now on oral dose echocardiogram 12/30/2022 showed EF 55-60% given persistent sob despite good diuresis -chest xray was repeated and showed evidence of pneumonia bicarb trended up , started diamox 250mg daily cardiology following CAP started on ceftriaxone, doxycycline 01/25 no sepsis, tachycardia r/t atrial fibrillation blood cultures neg after 48hrs speech eval> ground diet, honey thick Persistent AFib with RVR Toprol Xl increased to 100 bid continue digoxin INR daily cardiology following Acute COPD exacerbation, resolved on Xopenex d/t tachycardia, s/p iv Solu-Medrol Continue home inhalers Monitor respiratory status KISHAN. Resolved Patient's creatinine bumped to 1.5, elevated above baseline of 0.90 Likely cardiorenal, creatinine now trending down follow renal function Abnormal CXR findings CXR found new nodular density in the lateral mid to upper right lung may reflect fissural fluid verses a new 3.6 cm mass, Patient with history of recurrent metastatic lung cancer recommend follow up outpatient with Oncology, daughter aware about chest x-ray findings chronic anemia with Hx of gastritis H/H stable Continue omeprazole 20 mg b.i.d., switch to omeprazole 20 mg daily on 02/08/2023, per GI status post colonoscopy and upper endoscopy July 2021 was normal status post video capsule study this revealed melenic type fluid and bleeding probably in the ileum in apr 2022 Full Code DVT Prophylaxis: coumadin , Attending Dr. Greenfield Requires continued inpatient hospitalization for treatment of?acute hypoxic respiratory failure,CHF requiring IV Lasix, supplemental O2, breathing treatments, and close monitoring of respiratory status Time Spent With Patient Time: Total time managing care of this patient today ____ minutes. Quality Stroke Does the patient have a stroke diagnosis?: No VTE Prior VTE?: No VTE Risk Level:: Medical - moderate - high VTE Device Contraindication: Treatment Not Indicated VTE Drug Contraindication: N/A - Med Ordered
--- NOTE | 2023-01-28 14:03 | MHC.SL.DTX ---
Dysphagia Diet modifications: Last documented Solid diet consistencies: Chopped/Advanced (NDD3) Last documented Liquid consistency: Honey Thick Last documented Medication Administration: Changes made to current diet?: Yes Liquid Consistency and Strategies: Liquid Intake Recommendation: Thin Compensatory Strategies for Safe Swallow: Small Sips No Straws Liquids by Teaspoon Only Compensatory Strategies for Safe Swallow(b): Sitting Upright (90 deg) Alternate Liquids/Solids Rate of Ingestion Change Avoid Specific Foods Solid Food Consistency: Dietary Recommendations: Chopped/Advanced (NDD3) Additional Modifications to Solids: Recommend START on modified diet CHOPPED/ADVANCED (NDD3) solids and HONEY THICK liquids by teaspoon ONLY, pills CRUSHED in PUREE. Pt to be supervised during all PO intake, provide assistance as needed and monitor for any overt s/s of aspiration. Ensure strict aspiration precautions. Diet order updated by PRINTER MAINTAINER, care team (CEMENT PAVER, RN, RD) also notified via [place] Message. PRINTER MAINTAINER will continue to follow. Oral Medication Intake: Crushed with Puree Strategies and Precautions to be Taken for Safe Swallow: Sitting Upright (90 deg) Alternate Liquids/Solids Rate of Ingestion Change Avoid Specific Foods Supervision While Eating and/Drinking: Intermittent Supervision Foods to Avoid: Mixed textures, hard to chew solids Swallowing Recommended Treatments: Compens. Strategy Educat. Level of Impact on: Daily activities: Interpersonal interactions: Education: Employment: Community: Prognosis for Improvement: Recommendation for Speech: Inpatient Speech Therapy Speech Therapy through Rehab Facility Comment: 1:1 supervision and strict aspiration precautions Frequency/Duration: Date Range for Service Req: Timeline to reassess: Additional Comments: Treatment: Pt is resting in his chair with oxymask on. RN is able to change to NC prior to lunch. His tray is accurate to his order. He has a pitcher of water with a straw in it at bedside that is filled with unthickened water. He is able to feed himself with tray set-up assist. He tolerated his Chopped/Advanced Solids with no overt s/s of aspiration. He tolerated Honey Thick Liquids, self-administered via cup. Pt is noted to take consecutive sips despite cues. Between bites PRINTER MAINTAINER trialed Thin Liquids via Ice Chip, Spoon and Cup. Pt tolerated across conditions today with no overt s/s of aspiration. Assessment: Gas Distribution Supervisor Clinican/Clinical Fellow: No Supervisory Statement: I have reviewed and agree with the student/clinical fellow's documentation: N/A Speech Language Pathologist: Fede Donahue M.A., CCC-PRINTER MAINTAINER
[2023-01-28] MEDS: acetaZOLAMIDE 250 MG TABLET PO (14:43)
[2023-01-28] MEDS: Ferrous Sulfate 324 MG TABLET.DR PO (14:44)
--- NOTE | 2023-01-28 15:31 | MHC.SL.DTX ---
Dysphagia Diet modifications: Last documented Solid diet consistencies: Chopped/Advanced (NDD3) Last documented Liquid consistency: Honey Thick Last documented Medication Administration: Changes made to current diet?: Yes Liquid Consistency and Strategies: Liquid Intake Recommendation: Thin Compensatory Strategies for Safe Swallow: Small Sips No Straws Liquids by Teaspoon Only Compensatory Strategies for Safe Swallow(b): Sitting Upright (90 deg) Alternate Liquids/Solids Rate of Ingestion Change Avoid Specific Foods Solid Food Consistency: Dietary Recommendations: Chopped/Advanced (NDD3) Additional Modifications to Solids: Recommend START on modified diet CHOPPED/ADVANCED (NDD3) solids and THIN liquids by teaspoon ONLY, pills CRUSHED in PUREE. Pt to be supervised during all PO intake, provide assistance as needed and monitor for any overt s/s of aspiration. Ensure strict aspiration precautions. Diet order updated by HANDY MAN, care team (RIB SAWYER, RN, RD) also notified via [place] Message. HANDY MAN will continue to follow. Oral Medication Intake: Crushed with Puree Strategies and Precautions to be Taken for Safe Swallow: Sitting Upright (90 deg) Alternate Liquids/Solids Rate of Ingestion Change Avoid Specific Foods Supervision While Eating and/Drinking: Intermittent Supervision Foods to Avoid: Mixed textures, hard to chew solids Swallowing Recommended Treatments: Compens. Strategy Educat. Level of Impact on: Daily activities: Interpersonal interactions: Education: Employment: Community: Prognosis for Improvement: Recommendation for Speech: Inpatient Speech Therapy Speech Therapy through Rehab Facility Comment: 1:1 supervision and strict aspiration precautions Frequency/Duration: Date Range for Service Req: Timeline to reassess: Additional Comments: Treatment: Pt is resting in his chair with oxymask on. RN is able to change to NC prior to lunch. His tray is accurate to his order. He has a pitcher of water with a straw in it at bedside that is filled with unthickened water. He is able to feed himself with tray set-up assist. He tolerated his Chopped/Advanced Solids with no overt s/s of aspiration. He tolerated Honey Thick Liquids, self-administered via cup. Pt is noted to take consecutive sips despite cues. Between bites HANDY MAN trialed Thin Liquids via Ice Chip, Spoon and Cup. Pt tolerated across conditions today with no overt s/s of aspiration. Assessment: [employer] Business Analyst Clinican/Clinical Fellow: No Supervisory Statement: I have reviewed and agree with the student/clinical fellow's documentation: N/A Speech Language Pathologist: Fede Donahue M.A., CCC-HANDY MAN
[2023-01-28] MEDS: cefTRIAXone sodium 1 GM in 0.9 % Sodium Chloride 50 ML IV (16:43)
[2023-01-28] MEDS: 0.9 % Sodium Chloride Flush 3 ML SYRINGE IVFLUSH ×2 (16:44→21:10)
[2023-01-28] MEDS: Warfarin Sodium 3 MG TABLET PO (17:40)
[2023-01-28] MEDS: Atorvastatin Calcium 40 MG TABLET PO (21:09)
[2023-01-28] MEDS: Melatonin 3 MG TABLET 6 MG PO (21:09)
[2023-01-28] MEDS: guaiFENesin LA 600 MG TAB.ER.12H PO (21:10)
[2023-01-29] VITALS (9 sets, daily range): BP systolic 104–119; BP diastolic 60–69; PULSE 85–108; RESP 16–22; TEMP 36.3–37.1; O2SAT 88–95; BMI 23.3
--- NOTE | 2023-01-29 00:55 | PC.NURSE ---
Assumed care of pt 19:00 (01/28). See biophysical assessment and EMAR for full details. Bed alarm on and safety measures in place. Handoff report given 23:15.
[2023-01-29] MEDS: Omeprazole 20 MG CAPSULE.DR PO ×2 (05:09→16:28)
[2023-01-29 07:33] LABS: INTERNATIONAL NORM RATIO 1.4 (0.9-1.1); Prothrombin Time 17.2 SEC (11.1-13.3)
--- NOTE | 2023-01-29 08:13 | PC.NURSE ---
pt reported difficulty breathing with an O2 sat of 84% on 2L via oxy mask. Oxygen increased to 8L via oxymask and head of bed raised further up. MD promptly notified and respiratory called for patient's PRN treatment. patient's o2 sat then increased to 96%, so oxygen was decreased back to 2L
[2023-01-29] MEDS: levalbuterol HCL 1.25 MG/3 ML VIAL.NEB INHALE ×2 (08:16→14:07)
[2023-01-29] MEDS: 0.9 % Sodium Chloride Flush 3 ML SYRINGE IVFLUSH ×3 (08:46→20:47)
[2023-01-29] MEDS: Digoxin 0.125 MG TABLET PO (08:48)
[2023-01-29] MEDS: guaiFENesin LA 600 MG TAB.ER.12H PO ×2 (08:48→20:46)
[2023-01-29] MEDS: Metoprolol Succinate ER 100 MG TAB.ER.24H PO ×2 (08:48→20:46)
[2023-01-29] MEDS: acetaZOLAMIDE 250 MG TABLET PO ×3 (08:48→20:46)
[2023-01-29] MEDS: Acetaminophen 325 MG TABLET 650 MG PO (08:48)
[2023-01-29] MEDS: Doxycycline Monohydrate 100 MG CAPSULE PO ×2 (08:49→20:46)
[2023-01-29] MEDS: Folic Acid 1 MG TABLET PO (08:49)
[2023-01-29] MEDS: Furosemide 20 MG TABLET 60 MG PO (08:49)
[2023-01-29] MEDS: Nicotine 14 MG PATCH.TD24 TRANSDERMA (09:12)
[2023-01-29] MEDS: Furosemide 100 MG/10 ML VIAL 60 MG IVPUSH ×2 (09:13→17:32)
[2023-01-29 09:15] LABS: Hemoglobin 10.4 g/dl (14.0-18.0); Mean Corpuscular HGB Conc 28.9 g/dl (31.0-36.0); Mean Corpuscular Hemoglobin 30.9 pg (27.0-33.0); Mean Corpuscular Volume 106.8 fL (80.0-98.0); Mean Platelet Volume 11.9 fL (9.4-12.4); Platelet Count 210 X10*3/uL (160-400); Red Blood Count 3.37 X10*6/uL (4.60-5.80); Red Cell Distribution Width 16.9 % (11.0-16.0); White Blood Count 7.1 X10*3/uL (4.8-10.8)
[2023-01-29 09:32] LABS: ABG Base Excess 25.5 mmol/L; ABG HCO3 54 mmol/L (22-26); ABG pCO2 83 mmHg (32-45); ABG pH 7.42 (7.35-7.45); ABG pO2 54 mmHg (83-108)
[2023-01-29 09:43] LABS: B Type Natriuretic Peptide 864 pg/mL (<100)
[2023-01-29 09:53] LABS: Anion Gap 18 (12-20); Blood Urea Nitrogen 46 mg/dL (9-16); Calcium 9.1 mg/dL (8.4-10.2); Carbon Dioxide 40 mmol/L (22-29); Chloride 93 mmol/L (96-108); Creatinine Clr Calc Pharmacy 51.1; Estimated Glomerular Filt Rate 58; Glucose Random 148 mg/dL (60-115); Potassium 3.9 mmol/L (3.3-5.1); Sodium 147 mmol/L (135-145)
[2023-01-29 09:59] LABS: Procalcitonin 0.21 ng/mL
--- NOTE | 2023-01-29 11:42 | P.PNIM_ITS ---
Subjective Subjective Date of Service: 01/29/23 Interval History: Short of breath + hypoxic this AM Wet cough No chest pain Placed back on IV diuresis, SaO2 improved Review of Systems Review of Systems: Yes all other systems are reviewed and are negative Physical Exam 2 Vital Signs: Vital Signs: Last Vital Signs Temp 97.9 F 01/29/23 11:34 Pulse 95 01/29/23 11:34 Resp 17 01/29/23 11:34 BP 114/60 01/29/23 11:34 Pulse Ox 92 01/29/23 11:34 O2 Del Method Oxymask 01/29/23 11:34 O2 Flow Rate 2 01/29/23 11:34 BMI result Body Mass Index 23.3 Gen: NAD HEENT: sclera anicteric, moist mucus membranes Neck: supple Lungs: coarse wet inspiratory crackles bilaterally Heart: irregularly irregular, rate in upper 90s-lower 100s Abd: soft, non-tender, non-distended Ext: no edema Skin: warm/well-perfused Neuro: alert and oriented x3, no focal findings Psych: appropriate affect Objective Data Active Medications Acetaminophen (Acetaminophen 325 Mg Tablet) 650 mg PO Q6H PRN PRN Reason: Pain, Mild (Pain Scale 1-3) Last Admin: 01/29/23 08:48 Dose: 650 mg Documented By: TIFFANIE Acetazolamide (Acetazolamide 250 Mg Tablet) 250 mg PO BID [facility] Last Admin: 01/29/23 10:21 Dose: 250 mg Documented By: TIFFANIE Albuterol Sulfate (Albuterol Sulfate 90 Mcg 8 Gm Inhaler) 2 puff INHALE Q6H PRN PRN Reason: Shortness Of Breath Or Wheezing Atorvastatin Calcium (Atorvastatin Calcium 40 Mg Tablet) 40 mg PO BEDTIME [facility] Last Admin: 01/28/23 21:09 Dose: 40 mg Documented By: MADELINE Digoxin (Digoxin 0.125 Mg Tablet) 0.125 mg PO SUMOWEFR@0900 [facility] Last Admin: 01/29/23 08:48 Dose: 0.125 mg Documented By: TIFFANIE Docusate Sodium (Docusate Sodium 100 Mg Capsule) 100 mg PO DAILY PRN PRN Reason: Constipation Last Admin: 01/24/23 08:17 Dose: 100 mg Documented By: MALIA Doxycycline Monohydrate (Doxycycline Monohydrate 100 Mg Capsule) 100 mg PO BID [facility] Last Admin: 01/29/23 08:49 Dose: 100 mg Documented By: TIFFANIE Ferrous Sulfate (Ferrous Sulfate 324 Mg Tablet.) 324 mg PO DAILY@1500 [facility] Last Admin: 01/28/23 14:44 Dose: 324 mg Documented By: JORGE Folic Acid (Folic Acid 1 Mg Tablet) 1 mg PO DAILY [facility] Last Admin: 01/29/23 08:49 Dose: 1 mg Documented By: TIFFANIE Furosemide (Furosemide 100 Mg/10 Ml Vial) 60 mg IVPUSH BID@0900,1800 [facility]; Protocol Guaifenesin (Guaifenesin La 600 Mg Tab.Er.12h) 600 mg PO BID [facility] Last Admin: 01/29/23 08:48 Dose: 600 mg Documented By: TIFFANIE Guaifenesin/Dextromethorphan (Guaifenesin Dm 100/10/5 Ml 5 Ml Syrup) 10 ml PO Q6H PRN PRN Reason: cough Last Admin: 01/27/23 05:00 Dose: 10 ml Documented By: ANTYASMANI Ceftriaxone Sodium 1 gm/ (Sodium Chloride) 50 mls @ 100 mls/hr IV Q24H [facility] Last Infusion: 01/28/23 17:42 Dose: Infused Documented By: JORGE Levalbuterol HCl (Levalbuterol Hcl 1.25 Mg/3 Ml Vial.Quinton) 1.25 mg INHALE Q2H PRN PRN Reason: Shortness of Breath/Wheezing Melatonin (Melatonin 3 Mg Tablet) 6 mg PO BEDTIME PRN PRN Reason: Insomnia Last Admin: 01/28/23 21:09 Dose: 6 mg Documented By: MADELINE Metoprolol Succinate (Metoprolol Succinate Er 100 Mg Tab.Er.24h) 100 mg PO BID [facility]; Protocol Last Admin: 01/29/23 08:48 Dose: 100 mg Documented By: TIFFANIE Nicotine (Nicotine 14 Mg Patch.Td24) 14 mg TRANSDERMA DAILY [facility] Last Admin: 01/29/23 09:12 Dose: 14 mg Documented By: TIFFANIE Omeprazole (Omeprazole 20 Mg Capsule.) 20 mg PO BID@0630,1630 [facility] Last Admin: 01/29/23 05:09 Dose: 20 mg Documented By: PELON Ondansetron HCl (Ondansetron Hcl 4 Mg/2 Ml Vial) 4 mg IVPUSH Q8H PRN PRN Reason: Nausea and Vomiting Polyethylene Glycol (Polyethylene Glycol 3350 17 Gm Powd.Pack) 17 gm PO DAILY PRN PRN Reason: Constipation Sodium Chloride (0.9 % Sodium Chloride Flush 3 Ml Syringe) 3 ml IVFLUSH QSHIFT [facility] Last Admin: 01/29/23 08:46 Dose: 3 ml Documented By: TIFFANIE Warfarin Sodium (Warfarin Sodium 4 Mg Tablet) 4 mg PO DAILY@1800 [facility] Labs 01/29/23 09:03 01/29/23 09:03 Labs: Laboratory Results - last 24 hr 01/29/23 01/29/23 01/29/23 06:39 06:58 09:03 MCV 106.8 H MCH 30.9 MCHC 28.9 L RDW 16.9 H Plt Count 210 MPV 11.9 Absolute Nucleated RBC 0.000 Nucleated RBC % (auto) 0.0 Hold Purple Top SEE NOTE PT 17.2 H D INR 1.4 H O2 Saturation ABG pH at Pt Temp ABG pCO2 at Pt Temp ABG pO2 at Pt Temp ABG HCO3 ABG Base Excess (Actual) Anion Gap 18 Estim Creat Clear Calc 51.1 Estimated GFR 58 Random Glucose 148 H Calcium 9.1 D B-Natriuretic Peptide 864 H Procalcitonin 0.21 Hold Green Top See Note Cancelled 01/29/23 09:25 MCV MCH MCHC RDW Plt Count MPV Absolute Nucleated RBC Nucleated RBC % (auto) Hold Purple Top PT INR O2 Saturation 83.0 ABG pH at Pt Temp 7.42 ABG pCO2 at Pt Temp 83 H* ABG pO2 at Pt Temp 54 L ABG HCO3 54 H ABG Base Excess (Actual) 25.5 Anion Gap Estim Creat Clear Calc Estimated GFR Random Glucose Calcium B-Natriuretic Peptide Procalcitonin Hold Green Top Assessment and Plan (1) KISHAN (acute kidney injury): Status: Acute (2) Pneumonia: Status: Acute (3) CHF exacerbation: Status: Acute (4) Atrial fibrillation with RVR: Status: Acute (5) Acute respiratory failure with hypoxia: Status: Acute Plan d8 82yo M with severe COPD, recurrent metastatic lung CA s/p R lobectomy, chronic HFpEF, chronic AF, HLD, PAD, and hx gastritis sent in for hypoxia + dyspnea from [facility] where he was undergoing STR after admission 12/30-01/10/23 for PNA, COPD exacerbation, decompensated HF, and KISHAN acute hypoxic and hypercarbic resp failure - was on BiPAP in ED, now on 1L via nasal cannula - acetazolamide, recheck VBG in AM - Pulm consult acute-chronic HFpEF [last TTE 12/30/22] - was on IV furosemide gtt then transitioned to PO dose yesterday, will place back on IV furosemide by push for 1d - monitor I/O [was 13.7L this entire admission] + BNP, electrolytes - Cardiology signed off CAP - ceftriaxone + doxycycline d5/7 - BCx negative, MRSA negative, trend PCT, check urinary antigens for Legionella + pneumococcus - MASTER COSMETOLOGIST: ground mechanical diet, honey-thick liquid chronic AF with occasional RVR - increased metoprolol succinate to 100 mg bid - continue digoxin - continue warfarin- increase dose from 3 to 4 mg/d, monitor INR daily acute COPD exacerbation - got 2d of IV methylprednisolone, will place on prednisone 40 mg/d - nebs prn KISHAN - resolved, was likely cardioreanl lobulated lung mass - history of recurrent metastatic lung CA; will need outpt f/u with Oncology; daughter aware of CXR findings chronic anemia hx gastritis - H+H stable, continue PPI - s/p EGD + C-scope July 2021 what were normal; s/p video capsule study that revealed melenic fluid and bleeding probably in ileum April 2022 HLD - statin tobacco abuse - continue NRT VTE ppx - warfarin dispo - eventual return to STR In my clinical judgment, the patient requires continued inpatient hospitalization for the following reasons: diuresis, hypoxia, hypercarbia Time Spent With Patient Time: Total time managing care of this patient today _50___ minutes. Quality Stroke Does the patient have a stroke diagnosis?: No VTE Prior VTE?: No VTE Risk Level:: Medical - moderate - high VTE Device Contraindication: Treatment Not Indicated VTE Drug Contraindication: N/A - Med Ordered
[2023-01-29] MEDS: predniSONE 20 MG TABLET 40 MG PO (13:07)
[2023-01-29 13:32] LABS: ABG Refer to POC result
--- NOTE | 2023-01-29 15:30 | MHC.CM.PN ---
EMR reviewed and per MD rounds, pt is not medically cleared for D/C today, and will likely be ready to D/C in 1 or 2 more day. CM will continue to follow.
[2023-01-29] MEDS: Ferrous Sulfate 324 MG TABLET.DR PO (16:28)
[2023-01-29] MEDS: cefTRIAXone sodium 1 GM in 0.9 % Sodium Chloride 50 ML IV (16:28)
--- NOTE | 2023-01-29 17:22 | MHC.SLORD ---
Speech Language Pathology Order Status: Diet order updated to chopped/advanced solids (NDD3) and thin liquids per recommendations from DOOR AND ARRIVAL ATTENDANT on 01/28. RNs on floor confirmed they had received this recommendation yesterday and passed it on to night RN. Patient sound asleep in morning when DOOR AND ARRIVAL ATTENDANT attempted visit. Patient not seen by DOOR AND ARRIVAL ATTENDANT this date. DOOR AND ARRIVAL ATTENDANT to continue to follow.
[2023-01-29] MEDS: Warfarin Sodium 4 MG TABLET PO (17:33)
[2023-01-29] MEDS: Atorvastatin Calcium 40 MG TABLET PO (20:46)
[2023-01-30 03:26] VITALS: BP 99/59; PULSE 72; RESP 18; TEMP 36.5; O2SAT 95
[2023-01-30] MEDS: Omeprazole 20 MG CAPSULE.DR PO ×2 (05:44→16:00)
[2023-01-30 06:00] VITALS: BMI 23.6
[2023-01-30 07:12] VITALS: BP 111/61; PULSE 83; RESP 17; TEMP 36.8; O2SAT 93
[2023-01-30 07:13] LABS: Venous Blood Gas Refer to POC result
[2023-01-30 07:14] LABS: VBG Base Excess 28.5 mmol/L; VBG HCO3 56 mmol/L (22-26); VBG pCO2 79 mmHg; VBG pH 7.46 (7.32-7.43); VBG pO2 38 mmHg
[2023-01-30 07:15] LABS: Hematocrit 29.6 % (42.0-52.0); Hemoglobin 8.6 g/dl (14.0-18.0); Mean Corpuscular HGB Conc 29.1 g/dl (31.0-36.0); Mean Corpuscular Hemoglobin 30.5 pg (27.0-33.0); Mean Platelet Volume 11.5 fL (9.4-12.4); Platelet Count 223 X10*3/uL (160-400); Red Blood Count 2.82 X10*6/uL (4.60-5.80); Red Cell Distribution Width 16.4 % (11.0-16.0); White Blood Count 7.4 X10*3/uL (4.8-10.8)
[2023-01-30 07:20] LABS: INTERNATIONAL NORM RATIO 2.3 (0.9-1.1); Prothrombin Time 27.9 SEC (11.1-13.3)
[2023-01-30 07:36] LABS: Anion Gap 15 (12-20); Blood Urea Nitrogen 55 mg/dL (9-16); Calcium 8.8 mg/dL (8.4-10.2); Carbon Dioxide 43 mmol/L (22-29); Chloride 94 mmol/L (96-108); Creatinine Clr Calc Pharmacy 50.3; Estimated Glomerular Filt Rate 57; Glucose Random 169 mg/dL (60-115); Potassium 3.8 mmol/L (3.3-5.1); Sodium 148 mmol/L (135-145)
[2023-01-30 07:37] LABS: B Type Natriuretic Peptide 808 pg/mL (<100)
[2023-01-30] MEDS: guaiFENesin LA 600 MG TAB.ER.12H PO ×2 (09:15→20:32)
[2023-01-30] MEDS: Nicotine 14 MG PATCH.TD24 TRANSDERMA (09:16)
[2023-01-30] MEDS: Folic Acid 1 MG TABLET PO (09:17)
[2023-01-30] MEDS: Doxycycline Monohydrate 100 MG CAPSULE PO ×2 (09:17→20:32)
[2023-01-30] MEDS: Metoprolol Succinate ER 100 MG TAB.ER.24H PO ×2 (09:17→20:31)
[2023-01-30] MEDS: Furosemide 100 MG/10 ML VIAL 60 MG IVPUSH ×2 (09:17→17:44)
[2023-01-30] MEDS: predniSONE 20 MG TABLET 40 MG PO (09:17)
[2023-01-30] MEDS: acetaZOLAMIDE 250 MG TABLET PO ×2 (09:17→20:31)
[2023-01-30] MEDS: 0.9 % Sodium Chloride Flush 3 ML SYRINGE IVFLUSH ×2 (09:18→16:00)
--- NOTE | 2023-01-30 09:42 | HO.PM.IMPN ---
Subjective Subjective Date of Service: 01/30/23 Interval History: still dyspneic on 2L via Oxymask no fever Review of Systems Review of Systems: Yes all other systems are reviewed and are negative Physical Exam Vital Signs: Vital Signs: Last Vital Signs Temp 98.3 F 01/30/23 07:12 Pulse 83 01/30/23 07:12 Resp 17 01/30/23 07:12 BP 111/61 01/30/23 07:12 Pulse Ox 93 01/30/23 07:12 O2 Del Method Oxymask 01/30/23 07:12 O2 Flow Rate 2 01/30/23 07:12 BMI result Body Mass Index 23.6 Gen: NAD HEENT: sclera anicteric, moist mucus membranes Neck: supple Lungs: coarse wet inspiratory crackles bilaterally Heart: irregularly irregular, normal rate Abd: soft, non-tender, non-distended Ext: no edema Skin: warm/well-perfused Neuro: alert and oriented x3, no focal findings Psych: appropriate affect Objective Data Active Medications Acetaminophen (Acetaminophen 325 Mg Tablet) 650 mg PO Q6H PRN PRN Reason: Pain, Mild (Pain Scale 1-3) Last Admin: 01/29/23 08:48 Dose: 650 mg Documented By: TIFFANIE Acetazolamide (Acetazolamide 250 Mg Tablet) 250 mg PO BID [facility] Last Admin: 01/30/23 09:17 Dose: 250 mg Documented By: NOELLE Albuterol Sulfate (Albuterol Sulfate 90 Mcg 8 Gm Inhaler) 2 puff INHALE Q6H PRN PRN Reason: Shortness Of Breath Or Wheezing Atorvastatin Calcium (Atorvastatin Calcium 40 Mg Tablet) 40 mg PO BEDTIME [facility] Last Admin: 01/29/23 20:46 Dose: 40 mg Documented By: EVON Digoxin (Digoxin 0.125 Mg Tablet) 0.125 mg PO SUMOWEFR@0900 [facility] Last Admin: 01/29/23 08:48 Dose: 0.125 mg Documented By: TIFFANIE Docusate Sodium (Docusate Sodium 100 Mg Capsule) 100 mg PO DAILY PRN PRN Reason: Constipation Last Admin: 01/24/23 08:17 Dose: 100 mg Documented By: MALIA Doxycycline Monohydrate (Doxycycline Monohydrate 100 Mg Capsule) 100 mg PO BID [facility] Last Admin: 01/30/23 09:17 Dose: 100 mg Documented By: NOELLE Ferrous Sulfate (Ferrous Sulfate 324 Mg Tablet.) 324 mg PO DAILY@1500 [facility] Last Admin: 01/29/23 16:28 Dose: 324 mg Documented By: JORGE Folic Acid (Folic Acid 1 Mg Tablet) 1 mg PO DAILY [facility] Last Admin: 01/30/23 09:17 Dose: 1 mg Documented By: NOELLE Furosemide (Furosemide 100 Mg/10 Ml Vial) 60 mg IVPUSH BID@0900,1800 [facility]; Protocol Last Admin: 01/30/23 09:17 Dose: 60 mg Documented By: NOELLE Guaifenesin (Guaifenesin La 600 Mg Tab.Er.12h) 600 mg PO BID [facility] Last Admin: 01/30/23 09:15 Dose: 600 mg Documented By: NOELLE Guaifenesin/Dextromethorphan (Guaifenesin Dm 100/10/5 Ml 5 Ml Syrup) 10 ml PO Q6H PRN PRN Reason: cough Last Admin: 01/27/23 05:00 Dose: 10 ml Documented By: ANTYASMANI Ceftriaxone Sodium 1 gm/ (Sodium Chloride) 50 mls @ 100 mls/hr IV Q24H [facility] Last Infusion: 01/29/23 17:38 Dose: Infused Documented By: JORGE Levalbuterol HCl (Levalbuterol Hcl 1.25 Mg/3 Ml Vial.[place]inton) 1.25 mg INHALE Q2H PRN PRN Reason: Shortness of Breath/Wheezing Last Admin: 01/29/23 14:07 Dose: 1.25 mg Documented By: ROLF Melatonin (Melatonin 3 Mg Tablet) 6 mg PO BEDTIME PRN PRN Reason: Insomnia Last Admin: 01/28/23 21:09 Dose: 6 mg Documented By: MADELINE Metoprolol Succinate (Metoprolol Succinate Er 100 Mg Tab.Er.24h) 100 mg PO BID [facility]; Protocol Last Admin: 01/30/23 09:17 Dose: 100 mg Documented By: NOELLE Nicotine (Nicotine 14 Mg Patch.Td24) 14 mg TRANSDERMA DAILY [facility] Last Admin: 01/30/23 09:16 Dose: 14 mg Documented By: NOELLE Omeprazole (Omeprazole 20 Mg Capsule.) 20 mg PO BID@0630,1630 [facility] Last Admin: 01/30/23 05:44 Dose: 20 mg Documented By: EVON Ondansetron HCl (Ondansetron Hcl 4 Mg/2 Ml Vial) 4 mg IVPUSH Q8H PRN PRN Reason: Nausea and Vomiting Polyethylene Glycol (Polyethylene Glycol 3350 17 Gm Powd.Pack) 17 gm PO DAILY PRN PRN Reason: Constipation Prednisone (Prednisone 20 Mg Tablet) 40 mg PO DAILY [facility] Last Admin: 01/30/23 09:17 Dose: 40 mg Documented By: NOELLE Sodium Chloride (0.9 % Sodium Chloride Flush 3 Ml Syringe) 3 ml IVFLUSH QSHIFT [facility] Last Admin: 01/30/23 09:18 Dose: 3 ml Documented By: NOELLE Warfarin Sodium (Warfarin Sodium 3 Mg Tablet) 3 mg PO DAILY@1800 [facility] Labs 01/30/23 07:04 01/30/23 07:04 Labs: Laboratory Results - last 24 hr 01/29/23 01/30/23 01/30/23 09:03 07:04 07:07 MCV 105.0 H MCH 30.5 MCHC 29.1 L RDW 16.4 H Plt Count 223 MPV 11.5 Absolute Nucleated RBC 0.000 Nucleated RBC % (auto) 0.0 PT 27.9 H D INR 2.3 H VBG pH 7.46 H VBG pCO2 79 VBG pO2 38 VBG HCO3 56 H VBG O2 Saturation 63.0 VBG Base Excess 28.5 Anion Gap 18 15 Estim Creat Clear Calc 51.1 50.3 Estimated GFR 58 57 Random Glucose 148 H 169 H Calcium 9.1 D 8.8 B-Natriuretic Peptide 864 H 808 H Procalcitonin 0.21 Impressions Chest X-Ray 01/29/23 09:40 IMPRESSION: 1. Redemonstration of a lobulated mass within the right lung apex with adjacent surgical clips and surgical sutures. Ovoid density within the lateral aspect of the right midlung, unchanged. 2. Patchy bilateral airspace opacities, slightly decreased in the right lower lobe when compared to the prior examination. Small left-sided pleural effusion, unchanged. Assessment and Plan (1) KISHAN (acute kidney injury): Status: Acute (2) Pneumonia: Status: Acute (3) CHF exacerbation: Status: Acute (4) Atrial fibrillation with RVR: Status: Acute (5) Acute respiratory failure with hypoxia: Status: Acute Plan d9 82yo M with severe COPD, recurrent metastatic lung CA s/p R lobectomy, chronic HFpEF, chronic AF, HLD, PAD, and hx gastritis sent in for hypoxia + dyspnea from [facility] where he was undergoing STR after admission 12/30-01/10/23 for PNA, COPD exacerbation, decompensated HF, and KISHAN acute hypoxic and hypercarbic resp failure - was on BiPAP in ED, now on 2L via Oxymask - acetazolamide - Pulm consulted; will do overnight oximetry test tonight and will likely need BiPAP at night acute-chronic HFpEF [last TTE 12/30/22] - was on IV furosemide gtt then transitioned to PO, then placed back on IV furosemide pushes yesterday; likely transition back to PO in AM - monitor I/O [14L this entire admission] + BNP, electrolytes - Cardiology signed off CAP - ceftriaxone + doxycycline d6/ - BCx negative, MRSA negative, trend PCT, check urinary antigens for Legionella + pneumococcus - 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 mechanical 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, honey-thick liquid chronic AF with occasional RVR - increased metoprolol succinate to 100 mg bid - continue digoxin - continue warfarin- INR now therapeutic, return to prior dose of 3 mg/d acute COPD exacerbation - got 2d of IV methylprednisolone, started on prednisone 40 mg/d 01/29/23 - nebs prn KISHAN - resolved, was likely cardioreanl lobulated lung mass - history of recurrent metastatic lung CA; will need outpt f/u with Oncology; daughter aware of CXR findings chronic anemia hx gastritis - H+H stable, continue PPI - s/p EGD + C-scope July 2021 what were normal; s/p video capsule study that revealed melenic fluid and bleeding probably in ileum April 2022 HLD - statin tobacco abuse - continue NRT VTE ppx - warfarin dispo - eventual return to STR In my clinical judgment, the patient requires continued inpatient hospitalization for the following reasons: diuresis, hypoxia, hypercarbia Time Spent With Patient Time: Total time managing care of this patient today __35__ minutes. Quality Stroke Does the patient have a stroke diagnosis?: No VTE Prior VTE?: No VTE Risk Level:: Medical - moderate - high VTE Device Contraindication: Treatment Not Indicated VTE Drug Contraindication: N/A - Med Ordered
--- NOTE | 2023-01-30 09:46 | P.PNPL_ITS ---
Subjective Subjective Date of Service: 01/30/23 Principal diagnosis: CHF predominantly right heart failure, atrial fibrillation chronic Interval history: THIS 82 YEARS OLD GENTLEMAN IS BEING TREATED FOR CONGESTIVE HEART FAILURE, POSSIBLE PNEUMONIA, WITH ACUTE EXACERBATION OF COPD, ACUTE ON CHRONIC RESPIRATORY FAILURE. ON TOP OF HIS PREVIOUS BACKGROUND OF RIGHT UPPER LOBE ADENO CARCINOMA, STATUS POST RIGHT UPPER LOBECTOMY STATUS POST RADIATION THERAPY. RECURRENT ACUTE EXACERBATION. SINCE HIS ADMISSION HE HAS DEFINITELY IMPROVED AND IS STAYING AFEBRILE, . RESPIRATORY DISTRESS HAS DECREASED HE HAS BEEN DIURESED ADEQUATELY, ALSO HAS BEEN TREATED WITH A COURSE OF ANTIBIOTICS. HE CONTINUES TO HAVE THE CHRONIC RESPIRATORY FAILURE WITH SIGNIFICANT HYPERCAPNIA AND HYPOXEMIA. NOW ON O2 3 L/MINUTE AND IS OXYGENATING WELL. HIS VENOUS BLOOD GAS STUDY STILL SHOWS PCO2 79 WHICH IS INDICATIVE OF CHRONIC RESPIRATORY FAILURE. AT THE TIME OF ADMISSION THIS GENTLEMAN WAS TREATED WITH BIPAP AND DID IMPROVE. HE HAS NOT USED BIPAP ON AN ONGOING BASIS BEFORE. HE DOES HAVE SIGNIFICANT DEGREE OF CHRONIC OBSTRUCTIVE PULMONARY DISEASE, AND SYSTEMICALLY HE IS QUITE DEBILITATED DUE TO ALL THE ONGOING PROBLEMS. Objective Data Labs 01/30/23 07:04 01/30/23 07:04 Labs: Laboratory Results - last 24 hr 01/29/23 01/30/23 01/30/23 09:03 07:04 07:07 WBC 7.4 RBC 2.82 L Hgb 8.6 L Hct 29.6 L MCV 105.0 H MCH 30.5 MCHC 29.1 L RDW 16.4 H Plt Count 223 MPV 11.5 Absolute Nucleated RBC 0.000 Nucleated RBC % (auto) 0.0 PT 27.9 H D INR 2.3 H VBG pH 7.46 H VBG pCO2 79 VBG pO2 38 VBG HCO3 56 H VBG O2 Saturation 63.0 VBG Base Excess 28.5 Sodium 147 H 148 H Potassium 3.9 3.8 Chloride 93 L 94 L Carbon Dioxide 40 H* 43 H* Anion Gap 18 15 BUN 46 H 55 H Creatinine 1.20 1.22 Estim Creat Clear Calc 51.1 50.3 Estimated GFR 58 57 Random Glucose 148 H 169 H Calcium 9.1 D 8.8 B-Natriuretic Peptide 808 H Procalcitonin 0.21 ABG ABG results: VENOUS BLOOD GAS STUDY : PH 7.46, PCO2 79, PO2 38, BICARB 56 Microbiology Microbiology Results: Microbiology 01/25/23 18:30 Blood - Venous Blood Culture - Preliminary No growth after 48 hours. 01/25/23 18:30 Blood - Venous Blood Culture - Preliminary No growth after 48 hours. 01/22/23 06:38 Blood - Venous Blood Culture - Final No growth after 5 days. 01/22/23 06:38 Blood - Venous Blood Culture - Final No growth after 5 days. Physical Exam 2 Vital Signs: Vital Signs: Last Vital Signs Temp 98.3 F 01/30/23 07:12 Pulse 83 01/30/23 07:12 Resp 17 01/30/23 07:12 BP 111/61 01/30/23 07:12 Pulse Ox 93 01/30/23 07:12 O2 Del Method Oxymask 01/30/23 07:12 O2 Flow Rate 2 01/30/23 07:12 BMI result Body Mass Index 23.6 Procedures Date of Service Date of Service: 01/30/23 Assessment and Plan Assessment and plan (1) Lung mass: Status: Acute (2) Pneumonia: Status: Acute (3) Acute exacerbation of chronic obstructive pulmonary disease: Status: Acute (4) Congestive heart failure: Problem details: (HEpEF) Status: Acute (5) Cancer of upper lobe of right lung: Problem details: (adenocarcinoma - s/p RUL wedge resection in 2013 & 2019); no adjuvant therapy required Status: Acute (6) Respiratory failure, acute and chronic: Status: Acute Assessment and Plan: THIS GENTLEMAN IS RECOVERING FROM POSSIBLE PNEUMONIA, CONGESTIVE HEART FAILURE, ACUTE EXACERBATION OF COPD. HOWEVER HE HAS ONGOING ACUTE ON CHRONIC RESPIRATORY FAILURE WITH SEVERE HYPERCAPNIA AND HYPOXEMIA. THIS IS DUE TO HIS BASELINE SEVERE CHRONIC OBSTRUCTIVE PULMONARY DISEASE AND IMPAIRED VENTILATION . HE HAS BEEN ON ACETAZOLAMIDE, BUT IT HAS NOT. HELPED TO DECREASE PCO2 I THINK HE IS CANDIDATE FOR ONGOING TREATMENT WITH NON INVASIVE VENTILATORY SUPPORT/ BIPAP. IN ADDITION TO OXYGEN SUPPLEMENTATION. HE WAS ADVISED TO DO PURSED LIP BREATHING EXERCISES BUT HE DOES NOT HAVE MUCH STRENGTH OR CAPACITY TO DO IT. AFTER DISCUSSION HE AGREES TO. TRY BIPAP THERAPY TO QUALIFY HIM FOR THE BIPAP TREATMENT WE SHOULD DO THE FOLLOWING: OVERNIGHT OXIMETRY RECORDING WITH O2 2 L/MINUTE, IN SPITE OF O2 THERAPY IF HIS O2 SATS KEEP ON DIPPING DOWN BELOW 89%, HE WILL QUALIFY. HE IS ALREADY CONFIRMED TO HAVE HYPERCAPNIA. WEAN OFF PREDNISONE OVER THE NEXT. 7-10 DAYS COMPLETE THE COURSE OF ANTIBIOTICS. HAD IPRATROPIUM SOLUTION IN THE NEBULIZER Q 6 HOURS WHILE AWAKE. HE CAN CONTINUE TO HAVE LAB ALBUTEROL SOLUTION BY NEBULIZER Q 4-6 HOURS P.R.N.. Time Spent With Patient Time: Total time managing care of this patient today ____ minutes. Progress Note: Quality Stroke Does the patient have a stroke diagnosis?: No
[2023-01-30 11:14] VITALS: BP 121/67; PULSE 100; RESP 17; TEMP 37.4; O2SAT 93
--- NOTE | 2023-01-30 12:48 | MHC.SL.SWA ---
Speech Pathologist Impression: Risk of Aspiration Due to: Medically Fragile Dysphasia Diet Status: Recommend continue on Chopped/Advanced (NDD2) with Thin liquids, pills crushed in puree. Liquid Consistency and Strategies for Safe Swallow: Liquid Intake Recommendation: Thin Liquid Intake Strategies: Small Sips No Straws Solid Food Consistency: Dietary Recommendations: Chopped/Advanced (NDD3) Additional Modifications to Solid Foods: Recommend START on modified diet CHOPPED/ADVANCED (NDD3) solids and HONEY THICK liquids by teaspoon ONLY, pills CRUSHED in PUREE. Pt to be supervised during all PO intake, provide assistance as needed and monitor for any overt s/s of aspiration. Ensure strict aspiration precautions. Diet order updated by HAND MOLDER AND CASTER, care team (INDUSTRY OPERATIONS INVESTIGATOR, RN, RD) also notified via [employer] Message. HAND MOLDER AND CASTER will continue to follow. Oral Medication Intake: Crushed with Puree Please contact the pharmacy regarding appropriate crushable or liquid drug formulations that are available whenever modified delivery is recommended. Compensatory Strategies and Precautions to be Taken for Safe Swallow: Sitting Upright (90 deg) Liquids from Cup Alternate Liquids/Solids Rate of Ingestion Change Avoid Specific Foods Supervision While Eating and Drinking for Safe Swallow: Intermittent Supervision Foods to Avoid: Mixed textures, hard to chew solids Swallowing Recommended Treatments: Compens. Strategy Educat. Recommendation for Speech: Inpatient Speech Therapy Speech Therapy through Rehab Facility Comment: Patient was seen during lunch. Patient requested to sit at side of bed for meal, with RN assistance, patient was positioned seated, and patient sustained this position well during meal. Oxymask was replaced with NC by nursing for the meal. Patient requested assistance with opening all items on tray, and was given juice in cup v. container. Patient was observed eating meal of chicken salad, orzo ( chopped buttered noodles ), two broths, two cups of coffee, and apple juice. On solids, patient noted to have mildly prolonged oral phase, with mild delay of swallow, good oral clearance. Patient was noted to take sips of broth directly from bowl, but produced timely oral phase and timely swallow, no clinical signs of aspiration. Patient was also observed indepedently drinking juice from cup, taking small, reasonable sips, no clinical signs of aspiration. Patient appears to be tolerating thin liquids well, is able to feed self, but needs assistance with set up of tray and periodic supervision to assure he is progressing well with meal. Recommend continue on Chopped/Advanced (NDD2) with Thin liquids, pills crushed in puree. Frequency/Duration: Date Range for Service Req: Timeline to reassess: Multi Slide Machine Tender Clinican/Clinical Fellow: No Supervisory Statement: I have reviewed and agree with the student/clinical fellow's documentation: N/A Speech Language Pathologist: Jeannie Oliveira M.A., CCC-HAND MOLDER AND CASTER
[2023-01-30 15:44] VITALS: BP 127/70; PULSE 55; RESP 20; TEMP 36.6; O2SAT 96
[2023-01-30] MEDS: Ferrous Sulfate 324 MG TABLET.DR PO (16:00)
[2023-01-30] MEDS: Warfarin Sodium 3 MG TABLET PO (17:44)
[2023-01-30] MEDS: cefTRIAXone sodium 1 GM in 0.9 % Sodium Chloride 50 ML IV (17:45)
[2023-01-30 20:00] VITALS: BP 128/56; PULSE 98; RESP 20; TEMP 36.7; O2SAT 94
[2023-01-30] MEDS: Atorvastatin Calcium 40 MG TABLET PO (20:31)
[2023-01-30 23:11] VITALS: BP 117/70; PULSE 87; RESP 20; TEMP 36.6; O2SAT 94
[2023-01-31] VITALS (7 sets, daily range): BP systolic 107–126; BP diastolic 62–71; PULSE 102–113; RESP 18–45; TEMP 36.2–36.8; O2SAT 86–92; BMI 23.4
[2023-01-31] MEDS: 0.9 % Sodium Chloride Flush 3 ML SYRINGE IVFLUSH ×3 (00:49→14:38)
[2023-01-31] MEDS: Acetaminophen 325 MG TABLET 650 MG PO (00:49)
[2023-01-31] MEDS: guaiFENesin DM 100/10/5 ML 5 ML SYRUP 10 ML PO (01:04)
[2023-01-31] MEDS: Omeprazole 20 MG CAPSULE.DR PO (05:42)
[2023-01-31 08:04] LABS: INTERNATIONAL NORM RATIO 4.8 (0.9-1.1)
[2023-01-31 08:15] LABS: Anion Gap 22 (12-20); Blood Urea Nitrogen 60 mg/dL (9-16); Calcium 9.3 mg/dL (8.4-10.2); Carbon Dioxide 37 mmol/L (22-29); Chloride 94 mmol/L (96-108); Creatinine Clr Calc Pharmacy 40.9; Estimated Glomerular Filt Rate 45; Glucose Random 120 mg/dL (60-115); Magnesium 2.3 mg/dL (1.6-2.6); Potassium 3.8 mmol/L (3.3-5.1); Sodium 149 mmol/L (135-145)
[2023-01-31 08:15] LABS: B Type Natriuretic Peptide 1039 pg/mL (<100)
[2023-01-31] MEDS: acetaZOLAMIDE 250 MG TABLET PO (08:16)
[2023-01-31] MEDS: Digoxin 0.125 MG TABLET PO (08:17)
[2023-01-31] MEDS: Folic Acid 1 MG TABLET PO (08:17)
[2023-01-31] MEDS: Metoprolol Succinate ER 100 MG TAB.ER.24H PO (08:17)
[2023-01-31] MEDS: guaiFENesin LA 600 MG TAB.ER.12H PO (08:17)
[2023-01-31] MEDS: Doxycycline Monohydrate 100 MG CAPSULE PO (08:17)
[2023-01-31] MEDS: Nicotine 14 MG PATCH.TD24 TRANSDERMA (08:18)
[2023-01-31] MEDS: predniSONE 20 MG TABLET 40 MG PO (08:18)
[2023-01-31] MEDS: Furosemide 100 MG/10 ML VIAL 60 MG IVPUSH (08:19)
[2023-01-31 08:29] LABS: Procalcitonin 0.22 ng/mL
--- NOTE | 2023-01-31 11:09 | HO.PM.IMPN ---
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; wishes to continue NIPPV Review of Systems Review of Systems: Yes all other systems are reviewed and are negative Physical Exam Vital Signs: Vital Signs: Last Vital Signs Temp 97.2 F 01/31/23 08:00 Pulse 108 H 01/31/23 08:00 Resp 45 H 01/31/23 10:10 BP 126/66 01/31/23 08:00 Pulse Ox 91 L 01/31/23 08:00 O2 Del Method Oxymask 01/31/23 08:00 O2 Flow Rate 4 01/31/23 08:00 BMI result Body Mass Index 23.4 Gen: respiratory distress, chronically ill-appearing HEENT: sclera anicteric, moist mucus membranes Neck: supple Lungs: tachyneic, coarse wet inspiratory crackles, R>L Heart: regular rate and rhythm, no murmurs Abd: soft, non-tender, non-distended Ext: no edema Skin: warm/well-perfused Neuro: alert and oriented x3, no focal findings Psych: appropriate affect Objective Data Active Medications Acetaminophen (Acetaminophen 325 Mg Tablet) 650 mg PO Q6H PRN PRN Reason: Pain, Mild (Pain Scale 1-3) Last Admin: 01/31/23 00:49 Dose: 650 mg Documented By: DARWIN Acetazolamide (Acetazolamide 250 Mg Tablet) 250 mg PO BID [facility] Last Admin: 01/31/23 08:16 Dose: 250 mg Documented By: EDDA Albuterol Sulfate (Albuterol Sulfate 90 Mcg 8 Gm Inhaler) 2 puff INHALE Q6H PRN PRN Reason: Shortness Of Breath Or Wheezing Atorvastatin Calcium (Atorvastatin Calcium 40 Mg Tablet) 40 mg PO BEDTIME [facility] Last Admin: 01/30/23 20:31 Dose: 40 mg Documented By: DARWIN Digoxin (Digoxin 0.125 Mg Tablet) 0.125 mg PO SUMOWEFR@0900 [facility] Last Admin: 01/31/23 08:17 Dose: 0.125 mg Documented By: EDDA Docusate Sodium (Docusate Sodium 100 Mg Capsule) 100 mg PO DAILY PRN PRN Reason: Constipation Last Admin: 01/24/23 08:17 Dose: 100 mg Documented By: MALIA Doxycycline Monohydrate (Doxycycline Monohydrate 100 Mg Capsule) 100 mg PO BID [facility] Last Admin: 01/31/23 08:17 Dose: 100 mg Documented By: EDDA Ferrous Sulfate (Ferrous Sulfate 324 Mg Tablet.Dr) 324 mg PO DAILY@1500 [facility] Last Admin: 01/30/23 16:00 Dose: 324 mg Documented By: JANICE Folic Acid (Folic Acid 1 Mg Tablet) 1 mg PO DAILY [facility] Last Admin: 01/31/23 08:17 Dose: 1 mg Documented By: EDDA Furosemide (Furosemide 20 Mg Tablet) 60 mg PO DAILY [facility]; Protocol Guaifenesin (Guaifenesin La 600 Mg Tab.Er.12h) 600 mg PO BID [facility] Last Admin: 01/31/23 08:17 Dose: 600 mg Documented By: EDDA Guaifenesin/Dextromethorphan (Guaifenesin Dm 100/10/5 Ml 5 Ml Syrup) 10 ml PO Q6H PRN PRN Reason: cough Last Admin: 01/31/23 01:04 Dose: 10 ml Documented By: DARWIN Ceftriaxone Sodium 1 gm/ (Sodium Chloride) 50 mls @ 100 mls/hr IV Q24H [facility] Last Infusion: 01/30/23 18:35 Dose: Infused Documented By: JANICE Levalbuterol HCl (Levalbuterol Hcl 1.25 Mg/3 Ml Vial.Neb) 1.25 mg INHALE Q2H PRN PRN Reason: Shortness of Breath/Wheezing Last Admin: 01/29/23 14:07 Dose: 1.25 mg Documented By: ROLF Melatonin (Melatonin 3 Mg Tablet) 6 mg PO BEDTIME PRN PRN Reason: Insomnia Last Admin: 01/28/23 21:09 Dose: 6 mg Documented By: MADELINE Metoprolol Succinate (Metoprolol Succinate Er 100 Mg Tab.Er.24h) 100 mg PO BID [facility]; Protocol Last Admin: 01/31/23 08:17 Dose: 100 mg Documented By: EDDA Nicotine (Nicotine 14 Mg Patch.Td24) 14 mg TRANSDERMA DAILY [facility] Last Admin: 01/31/23 08:18 Dose: 14 mg Documented By: EDDA Omeprazole (Omeprazole 20 Mg Capsule.) 20 mg PO BID@0630,1630 [facility] Last Admin: 01/31/23 05:42 Dose: 20 mg Documented By: DARWIN Ondansetron HCl (Ondansetron Hcl 4 Mg/2 Ml Vial) 4 mg IVPUSH Q8H PRN PRN Reason: Nausea and Vomiting Polyethylene Glycol (Polyethylene Glycol 3350 17 Gm Powd.Pack) 17 gm PO DAILY PRN PRN Reason: Constipation Prednisone (Prednisone 20 Mg Tablet) 40 mg PO DAILY [facility] Last Admin: 01/31/23 08:18 Dose: 40 mg Documented By: EDDA Scopolamine (Scopolamine 1.5 Mg Patch.Td.3) 1.5 mg EAR-BEHIND Q72H [facility] Sodium Chloride (0.9 % Sodium Chloride Flush 3 Ml Syringe) 3 ml IVFLUSH QSHIFT [facility] Last Admin: 01/31/23 08:15 Dose: 3 ml Documented By: EDDA Warfarin Sodium (Warfarin Sodium 3 Mg Tablet) 3 mg PO DAILY@1800 [facility] Last Admin: 01/30/23 17:44 Dose: 3 mg Documented By: JANICE Labs 01/30/23 07:04 01/31/23 07:47 Labs: Laboratory Results - last 24 hr 01/31/23 01/31/23 07:46 07:47 PT 59.0 H D INR 4.8 H D Anion Gap 22 H Estim Creat Clear Calc 40.9 Estimated GFR 45 Random Glucose 120 H Calcium 9.3 Magnesium 2.3 B-Natriuretic Peptide 1039 H Procalcitonin 0.22 Microbiology Microbiology Results: Microbiology 01/25/23 18:30 Blood Culture - Final Blood - Venous No growth after 5 days. 01/25/23 18:30 Blood Culture - Final Blood - Venous No growth after 5 days. Assessment and Plan (1) KISHAN (acute kidney injury): Status: Acute (2) Pneumonia: Status: Acute (3) CHF exacerbation: Status: Acute (4) Atrial fibrillation with RVR: Status: Acute (5) Acute respiratory failure with hypoxia: Status: Acute Plan d10 82yo M with severe COPD, recurrent lung CA s/p R lobectomy now with brain metastasis, chronic HFpEF, chronic AF, HLD, PAD, and hx gastritis sent in for hypoxia + dyspnea from [facility] where he was undergoing STR after admission 12/30-01/10/23 for PNA, COPD exacerbation, decompensated HF, and KISAHN goals of care - pt has capacity to make decisions and after discussion of options moving forward, he would like to be DNR/DNI in light of severe underlying comorbidities. 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, though, and wishes to continue with NIPPV acute hypoxic and hypercarbic resp failure - place back on BiPAP for rescue now - acetazolamide - Pulm following acute-chronic HFpEF [last TTE 12/30/22] - was on IV furosemide gtt then transitioned to PO, then given a few doses of IV push furosemide over last 2 d - negative 14L this entire admission and now in KISHAN; d/c IV furosemide and place on PO maintenance - Cardiology signed off CAP - ceftriaxone + doxycycline d7/7 - BCx negative, MRSA negative, PCT flat, urinary antigens for Legionella + pneumococcus pending - CREDIT RATING CHECKER: ground mechanical diet, honey-thick liquid chronic AF with occasional RVR - increased metoprolol succinate to 100 mg bid - continue digoxin - INR supratherapeutic; hold warfarin and monitor INR daily acute COPD exacerbation - got 2d of IV methylprednisolone, started on prednisone 40 mg/d 01/29/23, place on IV methylprednisolone today - nebs prn KISHAN - likely from excess diuresis; monitor BMP recurrent lung CA with brain metastasis - not on treatment due to stage IV and comorbidities chronic anemia hx gastritis - H+H stable, continue PPI - s/p EGD + C-scope July 2021 what were normal; s/p video capsule study that revealed melenic fluid and bleeding probably in ileum April 2022 HLD - statin tobacco abuse - continue NRT VTE ppx - warfarin dispo - eventual return to STR In my clinical judgment, the patient requires continued inpatient hospitalization for the following reasons: respiratory failure Time Spent With Patient Time: Total time managing care of this patient today ___60_ minutes. Quality Stroke Does the patient have a stroke diagnosis?: No VTE Prior VTE?: No VTE Risk Level:: Medical - moderate - high VTE Device Contraindication: Treatment Not Indicated VTE Drug Contraindication: N/A - Med Ordered
--- NOTE | 2023-01-31 11:23 | PM.EVENT ---
Event Note Date of Service: 01/31/23 Event Note: Mr. Encinas developed dyspnea this AM. Upon my evaluation, he appeared midly dyspneic, though not hypoxic, able to speak in short sentences. I do not believe he needs BiPAP at this time, rather deep suctioning would likely be beneficial. I called Mr. Encinas's son and healthcare proxy, Chris, and encouraged him to come to the hospital. Later, I spoke with Mr. Encinas and Chris together, along with his granddaughter at Mr. Encinas's bedside. At this point, Mr. Encinas has already discussed code status with Dr. Booth, and Mr. Encinas is now DNR/DNI. I described non-invasive ventilation, central lines, arterial lines, and vasopressors to Mr. Encinas and his family, after which it was decided these interventions would not be in line with Mr. Encinas's goals of care. Chris inquired about comfort-focused care, which I described. Dr. Booth was updated regarding these conversations. Time Spent With Patient Time: Total time managing care of this patient today ____ minutes.
[2023-01-31] MEDS: Scopolamine 1.5 MG PATCH.TD.3 EAR-BEHIND (11:51)
[2023-01-31] MEDS: Morphine Sulfate 2 MG/ML CARTRIDGE IVPUSH ×2 (11:52→14:38)
--- NOTE | 2023-01-31 11:55 | PC.RT ---
pt placed on Bipap for resp distress per MD. pt contraindication of bipap due to risk of aspiration and mask not being large enough. pt had a risk for a high leak due to mouth breathing. pt then taken off bipap per MD and placed on a HFNC with an aerosol mask at 100% sating 89%. MD aware.
--- NOTE | 2023-01-31 11:58 | MHC.SLORD ---
Addendum entered and electronically signed by Rain Al MA, CCC-GAME AND FISH PROTECTOR 01/31/23 14:31: Order for ST d/c per Dr. 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 Please re-refer if GAME AND FISH PROTECTOR can be of further assistance. Original Note: Speech Language Pathology Order Status: GAME AND FISH PROTECTOR attempted to see pt for f/u at approximately 11:30am. Pt at the time receiving breathing treatment w/ RT. RT requested GAME AND FISH PROTECTOR return later. Pt is currently on a chopped diet (NDD3) with thin liquids. Recommend periodic supervision and aspiration precautions.
--- NOTE | 2023-01-31 12:39 | MHC.CM.PN ---
EMR reviewed and per MD rounds, pt is not medically cleared for D/C due to respiratory failure. CM will continue to follow.
--- NOTE | 2023-01-31 13:48 | P.EN_ITS ---
Event Note Date of Service: 01/31/23 Event Note: Pt now altered, unable to tolerate BiPAP and unable to answer questions. HCP invoked. 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 Time Spent With Patient Time: Total time managing care of this patient today ____ minutes.
--- NOTE | 2023-01-31 13:50 | HO.HCP ---
Health Care Proxy Invocation Health Care Proxy Declaration: I, Bryson Booth MD , on the date cited below, have determined that, ___Lizz Encinas , lacks the capacity to make or communicate, informed health care decision. This determination is made in accordance with accepted standards of medical judgment and pursuant to [place] 201[place], the [facility] Care Proxy Law. The cause, nature, extent and probable duration of the patient's inapacity are described below: Cause: Respiratory failure Nature: Acute/chronic Extent: Severe Probable Duration of Patient's Incapacity: Lifelong
[2023-01-31] MEDS: LORazepam 2 MG/ML VIAL 0.5 MG IVPUSH (14:37)
[2023-02-01] VITALS: RESP 20
--- NOTE | 2023-02-01 01:07 | PM.EVENT ---
Event Note Date of Service: 02/01/23 Event Note: pt at 1:00am. physcial exam sig for no pulse, RR . pupils dilated and non-reactive. family notified by RN Time Spent With Patient Time: Total time managing care of this patient today ____ minutes.
--- NOTE | 2023-02-01 03:52 | PC.NURSE ---
We to check on pt at 0050. Noticed pts check was not rising or falling. Confirmed pt had no pulse via palpitation and no heart beat via auscultation. Attending MD confirmed that pt had . Organ transplant services was contacted and they denied services. Family was notified around 115.
--- NOTE | 2023-02-01 07:15 | P.DN_ITS ---
Discharge Sum: Prov Provider Primary care physician: Ben Durham MD Admitting clinician: Carlos Yusuf Attending physician on admission: Sundeep Chapin Consults: 01/24/23 08:28 Consult to Cardiology Routine Consulting Provider: [facility] Reason for consultation: chf/atfib rvr Has provider been notified: No 01/27/23 09:16 Consult to Pulmonology Routine Consulting Provider: [facility] Reason for consultation: hypoxia Pronouncing clinician: Ted Ha Discharge Sum: Diag Contributing Factors (1) KISHAN (acute kidney injury): (2) Pneumonia: (3) CHF exacerbation: (4) Atrial fibrillation with RVR: (5) Acute respiratory failure with hypoxia and hypercapnia: (6) COPD exacerbation: Discharge Sum: Summary Date and Time Date of admission: 01/22/23 12:24 Date of : 02/01/23 Time of : 01:00 Summary Details: From admission H+P, 01/22/23, by hospitalist Carlos Yusuf PA: Pt is an 82-year-old male with a PMH significant for?severe COPD, recurrent metastatic lung cancer s/p right lobectomy, HFpEF, chronic AFib, HLD, PAD, and hx of gastritis who presents to the ED from [facility] with increasing shortness of breath and hypoxia. Patient was noted to be satting at 77% on RA, placed on CPAP which improved saturation to 97%. Patient states that respiratory symptoms began approximately 2 days ago, however he noticed increased lower leg edema a few days prior to that. Patient reports that he had not been given his Lasix at rehab for the first week and a half, has only received it for the past couple of days. Says his cough has been productive. Denies chest pain/pressure, palpitations. No fever, chills, nausea, vomiting, diarrhea. No abdominal pain. In the ED patient was tachycardic up to 122, tachypneic to 33, with BPH showing hypercapnia, respiratory acidosis, pH of 7.30. Patient's was initially placed on BiPAP and placed on OxyMask 6 L. ABG was taken after BiPAP and 60 mg Lasix IV with pH 7.37 with reduction and pCO2 and bicarb. Labs were significant for BNP 1366 (elevated above baseline, BNP 686 at last admission on 12/30/2022), troponin 26.3 with repeat flat at 26.3, creatinine elevated at 1.46. Lactic acid WNL at 0.8. Hepatic function baseline. Electrolytes WNL. Coags WNL. Patient tested negative for COVID, and nasal screens for MRSA and S aureus, CXR showed new nodular density at the lateral mid to upper right lung which may reflect fissural fluid verses a new 3.6 cm mass; redemonstrated right upper lobe mass similar to 12/30/2022; also found small pleural effusions and suspected worsening right basilar airspace opacity. EKG demonstrated atrial fibrillation with RVR of 1 3 with no evidence of ST elevations or depressions. Echocardiogram on 12/30/2022 normal left ventricular size and systolic function with estimated EF of 55-60%, mildly increased right ventricular cavity size with moderately decreased right ventricular systolic function, and significantly elevated right arterial pressure with moderate pulmonary hypertension. Pt was treated with furosemide 60 mg IV, DuoNeb, Solu-Medrol 60 mg IV, Zosyn. Pt will be admitted to the hospital for acute hypoxic respiratory failure in the setting of CHF exacerbation likely secondary to medication noncompliance. 82yo M with severe COPD, recurrent lung CA s/p R lobectomy now with brain metastasis, chronic HFpEF, chronic AF, HLD, PAD, and hx gastritis was undergoing short-term rehab at [facility] after admission 12/30-01/10/23 for PNA, COPD exacerbation, decompensated HF, and KISHAN. He was sent in for hypoxia + dyspnea and admitted to the [facility]. He underwent IV diuresis with furrosemide for HFpEF exacerbation and was placed on oxygen and BiPAP for hypoxic and hypercarbic respiratory failure. He was also treated with ceftriaxone and doxycycline for pneumonia and steroids and nebulizers for COPD exacerbation. Unfortunately, his respiratory status worsened. The c.o.d. clerk was consulted and his oncologist notified. No meaningful recovery was expected given his underlying lung cancer and severe COPD. He changed his code status to DNR/DNI. He then developed altered mental status and HCP was invoked. After discussion with his son, his HCP, he was transitioned to PROFILER status. He in the hospital at 01:00 on 02/01/23. Additional Data Confirmation of as documented by pronouncing clinician: no pulse, no respirations, no heart sounds and pupils fixed and dilated Family: contacted Attending physician: Bryson Booth MD Was code activated?: No Autopsy requested?: No voucher examiner notified?: No Organ bank notified?: No Advance directives: Yes Hospice patient?: Yes
[2023-02-03 17:52] LABS: Strep Pneumo Ag urine Not Detected (Not Detected)
[2023-02-04 05:03] LABS: Legionella Ag Urine Not Detected (Not Detected)
== END 2023-02-01 01:05 | disposition expired | DRG 291 ==
LOC: HO.ED 10:01 → HO.EDOVER 12:36 → HO.IMC 14:00
PROVIDERS: Hospitalist; Nurse Practitioner Acute Care; Physician Assistant Medical; Student in an Organized Health Care Education/Training Program; Admitting Provider Student in an Organized Health Care Education/Training Program; Emergency Provider Emergency Medicine; PCP Internal Medicine; Visit Provider Family Medicine
DX: I50.33 Acute on chronic diastolic (congestive) heart failure (principal); J18.9 Pneumonia, unspecified organism; J96.22 Acute and chronic respiratory failure with hypercapnia; J96.21 Acute and chronic respiratory failure with hypoxia; N17.9 Acute kidney failure, unspecified; J44.0 Chronic obstructive pulmonary disease with (acute) lower respiratory infection; J44.1 Chronic obstructive pulmonary disease with (acute) exacerbation; I48.19 Other persistent atrial fibrillation; E87.0 Hyperosmolality and hypernatremia; C79.31 Secondary malignant neoplasm of brain; C34.11 Malignant neoplasm of upper lobe, right bronchus or lung; Z51.5 Encounter for palliative care; Z66 Do not resuscitate; I27.29 Other secondary pulmonary hypertension; D63.0 Anemia in neoplastic disease; I73.9 Peripheral vascular disease, unspecified; I50.810 Right heart failure, unspecified; I25.10 Atherosclerotic heart disease of native coronary artery without angina pectoris; F17.210 Nicotine dependence, cigarettes, uncomplicated; Z90.2 Acquired absence of lung [part of]; Z20.822 Contact with and (suspected) exposure to COVID-19; Z79.899 Other long term (current) drug therapy
CPT/HCPCS: 36415; 36600; 71045; 80048; 80053; 80162; 82272; 82803; 83605; 83735; 83880; 84145; 84484; 85014; 85018; 85025; 85027; 85610; 87040; 87449; 87635; 87640; 87641; 87899; 92526; 92610; 93005; 94640; 94660; 97110; 97162; 97530; 99285; C1758; J0696; J1650; J1940; J2060; J2270; J2543; J2920; J2930; J3475

== ENCOUNTER → 2023-01-22 12:24 | Outpatient (BNV) | payer MEDICARE, SELFPAY | PROVIDERS: Admitting Provider Student in an Organized Health Care Education/Training Program; Emergency Provider Emergency Medicine; PCP Internal Medicine; Visit Provider Internal Medicine | DX: R91.8 Other nonspecific abnormal finding of lung field (principal); J18.9 Pneumonia, unspecified organism; J44.1 Chronic obstructive pulmonary disease with (acute) exacerbation; I50.9 Heart failure, unspecified; C34.11 Malignant neoplasm of upper lobe, right bronchus or lung; J96.20 Acute and chronic respiratory failure, unspecified whether with hypoxia or hypercapnia | CPT/HCPCS: 99222; 99232 ==

== ENCOUNTER → 2023-01-22 12:24 | Outpatient (BNV) | payer MEDICARE, SELFPAY | PROVIDERS: Admitting Provider Student in an Organized Health Care Education/Training Program; Emergency Provider Emergency Medicine; PCP Internal Medicine; Visit Provider Hospitalist | DX: N17.9 Acute kidney failure, unspecified (principal); J18.9 Pneumonia, unspecified organism; I50.9 Heart failure, unspecified; I48.91 Unspecified atrial fibrillation; J96.01 Acute respiratory failure with hypoxia; J96.02 Acute respiratory failure with hypercapnia; J44.1 Chronic obstructive pulmonary disease with (acute) exacerbation | CPT/HCPCS: 99223; 99232; 99233; 99239; 99499 ==

== ENCOUNTER → 2023-01-22 12:24 | Outpatient (BNV) | payer MEDICARE, SELFPAY | PROVIDERS: Admitting Provider Student in an Organized Health Care Education/Training Program; Emergency Provider Emergency Medicine; PCP Internal Medicine; Visit Provider Internal Medicine Cardiovascular Disease | DX: I50.9 Heart failure, unspecified (principal); I48.91 Unspecified atrial fibrillation | CPT/HCPCS: 99222; 99232; 99233 ==